=== PATIENT | female | born 1955 | race American Indian/Alaskan Native ===

== ENCOUNTER 2017-07-18 17:23 | Observation (INO) | payer BC, OTHER ==
[~2017-07-18] VITALS: Ht 162.6 cm; Wt 117.3 kg
--- OUTSIDE RECORDS SUMMARY | ~2017-07-18 | XMS | Encounter Summary ---
Demographics + + + | Address | [address] | | | [place] [address] | + + + | Home Phone | | + + + | Preferred Language | Unknown | + + + | Marital Status | | + + + | Bahai Affiliation | NON | + + + | Race | or | + + + | Ethnic Group | Not or | + + + Author + + + | Author | [facility] [employer] [facility] | + + + | Organization | [facility] | + + + | Address | Unknown | + + + | Phone | Unavailable | + + + Support + + + + + | Name | Relationship | Address | Phone | + + + + + | EVERETT WHITLEY | ECON | [address] | | | | | #[id number], [place] | | | | | [address] | | + + + + + Care Team Providers + +------+ + | Care Hoop Bender Tank Name | Role | Phone | + +------+ + | Morgan Conner MD | PCP | Unavailable | + +------+ + Encounter Details +--------+ + + + + | Date | Type | Department | Care Team | Description | +--------+ + + + + | 06/15/ | MyChart | Digestive Health | Pj Ochoa MD | RE: Medication - | | 2018 | Encounter | Center at [facility] 6th | [address] | [place] | | | | Floor [address] | [place], [place] | | | | | [place] Mailcode: CH6D | [address] | | | | | [facility] | [phone] | | | | | and Healing, 6th | | | | | | Floor [place], [place] | | | | | | [address] | | | | | | [phone] | | | +--------+ + + + + Social History + +-------+ +--------+------+ | Tobacco Use | Types | Packs/Day | Years | Date | | | | | Used | | + +-------+ +--------+------+ | Never Smoker | | | | | + +-------+ +--------+------+ + +---+---+---+ | Smokeless Tobacco: | | | | | Never Used | | | | + +---+---+---+ + + +---------+ + | Alcohol Use | Drinks/We | oz/Week | Comments | | | ek | | | + + +---------+ + | No | | | | + + +---------+ + + + + | Sex Assigned at | Date Recorded | | | | + + + | Not on file | | + + + as of this encounter Plan of Treatment Not on fileas of this encounter Visit Diagnoses Not on filein this encounter"
--- OUTSIDE RECORDS SUMMARY | ~2017-07-18 | XMS | Encounter Summary ---
Demographics + + + | Address | [address] | | | [place] [address] | + + + | Home Phone | | + + + | Preferred Language | Unknown | + + + | Marital Status | | + + + | Jew Affiliation | NON | + + + | Race | or | + + + | Ethnic Group | Not or | + + + Author + + + | Author | [facility] | + + + | Organization | [facility] | + + + | Address | Unknown | + + + | Phone | Unavailable | + + + Support + + + + + | Name | Relationship | Address | Phone | + + + + + | EVERETT WHITLEY | ECON | [address] | | | | | #[id number], [place] | | | | | [address] | | + + + + + Care Team Providers + +------+ + | Care Senior Sustainability Advisor Name | Role | Phone | + +------+ + | Morgan Conner MD | PCP | Unavailable | + +------+ + Encounter Details +--------+ + + + + | Date | Type | Department | Care Team | Description | +--------+ + + + + | 05/26/ | Document-Sc | Digestive Health | Pj Ochoa MD | | | 2018 | ann | [facility] 6th | [address] | | | | | Floor [address] | [place], [place] | | | | | Ave Mailcode: CH6D | [address] | | | | | [facility] | [phone] | | | | | and Linda, 6th | | | | | | Floor [place], [place] | | | | | | [address] | | | | | | [phone] | | | +--------+ + + + [...] Treatment Not on fileas of this encounter Results US HEPATOCELLULAR CARCINOMA SCREENING (05/26/2017)in this encounter Visit Diagnoses Not on filein this encounter"
--- OUTSIDE RECORDS SUMMARY | ~2017-07-18 | XMS | Encounter Summary ---
Demographics + + + | Address | [address] | | | [place] [address] | + + + | Home Phone | | + + + | Preferred Language | Unknown | + + + | Marital Status | | + + + | Scientology Affiliation | NON | + + + | Race | or | + + + | Ethnic Group | Not or | + + + Author + + + | Author | [facility] | + + + | Organization | [facility] | + + + | Address | Unknown | + + + | Phone | Unavailable | + + + Support + + + + + | Name | Relationship | Address | Phone | + + + + + | EVERETT WHITLEY | ECON | [address] | | | | | #[id number], [place] | | | | | [address] | | + + + + + Care Team Providers + +------+ + | Care Bike Assembler Name | Role | Phone | + +------+ + | Morgan Conner MD | PCP | Unavailable | + +------+ + Reason for Visit + + + | Reason | Comments | + + + | Medical Records | | | Review | | + + + Encounter Details +--------+ + + + + | Date | Type | Department | Care Team | Description | +--------+ + + + + | 05/30/ | Abstract | Digestive Health | Pj Ochoa MD | Medical Records | | 2018 | | Center [facility] 6th | [address] | Review | | | | Floor [address] | [place], [place] | | | | | Ave Mailcode: [facility] | [address] | | | | | [facility] | [phone] | | | | | and Linda, 6th | | | | | | Floor [place], [place] | | | | | | [address] | | | | | | [phone] | | | +--------+ + + + [...]
--- OUTSIDE RECORDS SUMMARY | ~2017-07-18 | XMS | Encounter Summary ---
Demographics + + + | Address | [address] | | | [place] [address] | + + + | Home Phone | | + + + | Preferred Language | Unknown | + + + | Marital Status | | + + + | Faith Affiliation | NON | + + + | Race | or | + + + | Ethnic Group | Not or | + + + Author + + + | Author | [facility] [employer] [facility] | + + + | Organization | [facility] | + + + | Address | Unknown | + + + | Phone | Unavailable | + + + Support + + + + + | Name | Relationship | Address | Phone | + + + + + | EVERETT WHITLEY | ECON | [address] | | | | | #[id number], [place] | | | | | [address] | | + + + + + Care Team Providers + +------+ + | Care Retail Pharmacy Merchandiser Name | Role | Phone | + +------+ + | Morgan Conner MD | PCP | Unavailable | + +------+ + Reason for Visit + + + | Reason | Comments | + + + | Blood Test Results | | + + + Encounter Details +--------+ + + + + | Date | Type | Department | Care Team | Description | +--------+ + + + + | 06/02/ | Abstract | Digestive Health | Pj Ochoa MD | Blood Test Results | | 2018 | | [facility]th | [address] | | | | | Floor [address] | [place], [place] | | | | | Ave Mailcode: [facility] | [address] | | | | | [facility] | [phone] | | | | | and Linda [address]th | | | | | | Floor [place], [place] | | | | | | [address] | | | | | | [phone] | | | +--------+ + + + [...]
--- OUTSIDE RECORDS SUMMARY | ~2017-07-18 | XMS | Encounter Summary ---
Demographics + + + | Address | [address] | | | [place] [address] | + + + | Home Phone | | + + + | Preferred Language | Unknown | + + + | Marital Status | | + + + | Amish Affiliation | NON | + + + | Race | or | + + + | Ethnic Group | Not or | + + + Author + + + | Author | [facility] | + + + | Organization | [facility] | + + + | Address | Unknown | + + + | Phone | Unavailable | + + + Support + + + + + | Name | Relationship | Address | Phone | + + + + + | EVERETT WHITLEY | ECON | [address] | | | | | #[id number], [place] | | | | | [address] | | + + + + + Care Team Providers + +------+ + | Care Rn Or Lvn Name | Role | Phone | + +------+ + | Morgan Conner MD | PCP | Unavailable | + +------+ + Encounter Details +--------+ + + + + | Date | Type | Department | Care Team | Description | +--------+ + + + + | 06/15/ | Documentati | Digestive Health | Pj Ochoa MD | | | 2018 | on | [place] at [facility] 6th | [address] | | | | | Floor [address] | [place], [place] | | | | | [place] Mailcode: CH6D | [address] | | | | | [facility] | [phone] | | | | | and [address]th [address] | | | | | | floor [place], [place] | | | | | | [address] | | | | | | [phone] | | | +--------+ + + + [...]
--- OUTSIDE RECORDS SUMMARY | ~2017-07-18 | XMS | Encounter Summary ---
Demographics + + + | Address | [address] | | | [place] [address] | + + + | Home Phone | | + + + | Preferred Language | Unknown | + + + | Marital Status | | + + + | Congregational Affiliation | NON | + + + | Race | or | + + + | Ethnic Group | Not or | + + + Author + + + | Author | [facility] | + + + | Organization | [facility] | + + + | Address | Unknown | + + + | Phone | Unavailable | + + + Support + + + + + | Name | Relationship | Address | Phone | + + + + + | EVERETT WHITLEY | ECON | [address] | | | | | #[id number], [place] | | | | | [address] | | + + + + + Care Team Providers + +------+ + | Care Tin Flopper Name | Role | Phone | + +------+ + | Morgan Conner MD | PCP | Unavailable | + +------+ + Reason for Visit +--------+ + | Reason | Comments | +--------+ + | Other | | +--------+ + Encounter Details +--------+ + + + + | Date | Type | Department | Care Team | Description | +--------+ + + + + | 05/10/ | Telephone | Digestive Health | Pj Ochoa MD | Other | | 2018 | | Center at [facility] 6th | [address] | | | | | Floor [address] | [place], [place] | | | | | Ave Mailcode: [facility] | [address] | | | | | [facility] | [phone] | | | | | and [facility], 6th | | | | | | Floor [place], [place] | | | | | | [address] | | | | | | [phone] | | | +--------+ + + + [...] of this encounter Plan of Treatment + +--------+ + + | Name | Priori | Associated Diagnoses | Order Schedule | | | ty | | | + +--------+ + + | US ABDOMEN COMPLETE | Routin | Autoimmune | Expected: | | | e | hepatitis (HCC) | 05/10/2017, Expires: | | | | Other cirrhosis of | 06/10/2018 | | | | liver (HCC) | | | | | Secondary esophageal | | | | | varices without | | | | | bleeding (HCC) | | + +--------+ + + | CBC, WITH DIFFERENTIAL | Routin | Autoimmune | Expected: 05/10/2017 | | | e | hepatitis (HCC) | (Approximate), | | | | Other cirrhosis of | Expires: 06/10/2018 | | | | liver (HCC) | | | | | Secondary esophageal | | | | | varices without | | | | | bleeding (HCC) | | + +--------+ + + | COMPLETE METABOLIC SET | Routin | Autoimmune | Expected: 05/10/2017 | | (NA,K,CL,CO2,BUN,CREAT,GLUC,CA, | e | hepatitis (HCC) | (Approximate), | | T,ALT,BILI TOTAL,ALK | | Other cirrhosis of | Expires: 06/10/2018 | | PHOS,ALB,PROT TOTAL) | | liver (HCC) | | | | | Secondary esophageal | | | | | varices without | | | | | bleeding (HCC) | | + +--------+ + + | INR | Routin | Autoimmune | Expected: 05/10/2017 | | | e | hepatitis (HCC) | (Approximate), | | | | Other cirrhosis of | Expires: 06/10/2018 | | | | liver (HCC) | | | | | Secondary esophageal | | | | | varices without | | | | | bleeding (HCC) | | + +--------+ + + as of this encounter Results INR (04/12/2017) + +-------+ + | Component | Value | Ref Range | + +-------+ + | INR | 1.2 | INR | + +-------+ + + + + | Specimen | Performing Laboratory | + + + | Blood | NON [facility] | + + + COMPLETE METABOLIC SET (NA,K,CL,CO2,BUN,CREAT,GLUC,CA,AST,ALT,BILI TOTAL,ALK PHOS,ALB,PROT TOTAL) (04/12/2017) + +---------+ + | Component | Value | Ref Range | + +---------+ + | GLUCOSE, PLASMA | 210 (H) | mg/dL | | (LAB) | | | + +---------+ + | BUN, PLASMA (LAB) | 11 | mg/dL | + +---------+ + | CREATININE PLASMA | 0.86 | mg/dL | | (LAB) | | | + +---------+ + | ALBUMIN, PLASMA | 2.7 (L) | g/dL | | (LAB) | | | + +---------+ + | BILIRUBIN TOTAL | 1.2 (H) | Transcutaneous | | | | Bilirubinometer | + +---------+ + | ALK PHOS | 93 | U/L | + +---------+ + | AST(SGOT) | 36 (H) | U/L | + +---------+ + | SODIUM, PLASMA (LAB) | 141 | mmol/L | + +---------+ + | POTASSIUM, PLASMA | 3.3 (L) | mmol/L | | (LAB) | | | + +---------+ + | ALT (SGPT) | 19 | U/L | + +---------+ + + + + | Specimen | Performing Laboratory | + + + | Blood | NON [facility] | + + + CBC ONLY (04/12/2017) + + + + | Component | Value | Ref Range | + + + + | WHITE CELL COUNT | 3.60 (L) | K/cu mm | + + + + | RED CELL COUNT | 4.08 | M/cu mm | + + + + | HEMOGLOBIN | 13.1 | g/dL | + + + + | HEMATOCRIT | 38.6 | % | + + + + | PLATELET COUNT | 72.0 (L) | K/cu mm | + + + + + + + | Specimen | Performing Laboratory | + + + | Blood | NON [facility] | + + + in this encounter Visit Diagnoses + + | Diagnosis | + + | Autoimmune hepatitis (HCC) - Primary | + + | Autoimmune hepatitis | + + | Other cirrhosis of liver (HCC) | + + | Secondary esophageal varices without bleeding (HCC) | + + | Esophageal varices without mention of bleeding in diseases classified elsewhere | + +"
--- OUTSIDE RECORDS SUMMARY | ~2017-07-18 | XMS | Encounter Summary ---
Demographics + + + | Address | [address] | | | [place] [address] | + + + | Home Phone | | + + + | Preferred Language | Unknown | + + + | Marital Status | | + + + | Restoration Affiliation | NON | + + + | Race | or | + + + | Ethnic Group | Not or | + + + Author + + + | Author | [facility] | + + + | Organization | [facility] | + + + | Address | Unknown | + + + | Phone | Unavailable | + + + Support + + + + + | Name | Relationship | Address | Phone | + + + + + | EVERETT WHITLEY | ECON | [address] | | | | | #[id number], [place] | | | | | [address] | | + + + + + Care Team Providers + +------+ + | Care Climatologist Name | Role | Phone | + +------+ + | Morgan Conner MD | PCP | Unavailable | + +------+ + Encounter Details +--------+ + + + + | Date | Type | Department | Care Team | Description | +--------+ + + + + | 07/04/ | MyChart | Digestive Health | Pj Ochoa MD | RE: ultrasound | | 2017 | Encounter | [facility] 6th | [address] | results | | | | Floor [address] | [place], [place] | | | | | Ave Mailcode: CH6D | [address] | | | | | [facility] | [phone] | | | | | and Healing, 6th | | | | | | Floor [place], [place] | | | | | | [address] | | | | | | [phone] | | | +--------+ + + + [...]
--- OUTSIDE RECORDS SUMMARY | ~2017-07-18 | XMS | Encounter Summary ---
Demographics + + + | Address | [address] | | | [place] [address] | + + + | Home Phone | | + + + | Preferred Language | Unknown | + + + | Marital Status | | + + + | Latter Day Affiliation | NON | + + + | Race | or | + + + | Ethnic Group | Not or | + + + Author + + + | Author | [facility] | + + + | Organization | [facility] | + + + | Address | Unknown | + + + | Phone | Unavailable | + + + Support + + + + + | Name | Relationship | Address | Phone | + + + + + | EVERETT WHITLEY | ECON | [address] | | | | | #[id number], [place] | | | | | [address] | | + + + + + Care Team Providers + +------+ + | Care Tack Picker Name | Role | Phone | + +------+ + | Morgan Conner MD | PCP | Unavailable | + +------+ + Reason for Referral PROC - Dept/Practice Procedure (Routine) + +--------+ + + + + | Status | Reason | Specialty | Diagnoses / | Referred By | Referred To | | | | | Procedures | Contact | Contact | + +--------+ + + + + | Referred | | Gastroenterol | Diagnoses | Don, | Gas Gi Proc | | | | ogy | Secondary | MD Pj | [address] | | | | | esophageal | [address] | [address] | | | | | varices | Ave | Mailcode: | | | | | without | [place], [place] | [address] Center | | | | | bleeding | [address] | for Health | | | | | (HCC) Other | Phone: | and Healing, | | | | | cirrhosis | [phone] | 6th floor | | | | | of liver | Fax: | [place], [place] | | | | | (HCC) | [phone] | [address] | | | | | Procedures | | Phone: | | | | | CONSULT TO | | [phone] | | | | | GI PROCEDURE | | Fax: | | | | | UNIT: EGD | | [phone] | + +--------+ + + + + Encounter Details +--------+ + + + + | Date | Type | Department | Care Team | Description | +--------+ + + + + | 06/14/ | Dog Pound Attendant | Digestive Health | Pj Ochoa MD | Secondary esophageal | | 2018 | | Center at [facility] 6th | [address] | varices without | | | | Floor [address] | [place], [place] | bleeding (HCC) | | | | Ave Mailcode: CH6D | [address] | (Primary Dx); Other | | | | [facility] | [phone] | cirrhosis of liver | | | | and Healing, 6th | | (HCC) | | | | floor [place], [place] | | | | | | [address] | | | | | | [phone] | | | +--------+ + + + [...] on fileas of this encounter Visit Diagnoses + + | Diagnosis | + + | Secondary esophageal varices without bleeding (HCC) - Primary | + + | Esophageal varices without mention of bleeding in diseases classified elsewhere | + + | Other cirrhosis of liver (HCC) | + +"
--- OUTSIDE RECORDS SUMMARY | ~2017-07-18 | XMS | Clinical Summary ---
Demographics + + + | Address | [address] | | | [place] [address] | + + + | Home Phone | | + + + | Preferred Language | Unknown | + + + | Marital Status | | + + + | Mosque Affiliation | NON | + + + | Race | or | + + + | Ethnic Group | Not or | + + + Author + + + | Author | [facility] | + + + | Organization | [facility] | + + + | Address | Unknown | + + + | Phone | Unavailable | + + + Support + + + + + | Name | Relationship | Address | Phone | + + + + + | EVERETT WHITLEY | ECON | [address] | | | | | #[id number], [place] | | | | | [address] | | + + + + + Care Team Providers + +------+ + | Care Petroleum Blending Plant Operator Name | Role | Phone | + +------+ + | Morgan Conner MD | PP | Unavailable | + +------+ + Source Comments FABIANO is fully live on both EpicCare Ambulatory and EpicCare InPatient.[facility] Allergies + + + + + + | Active Allergy | Reactions | Severity | Noted | Comments | | | | | Date | | + + + + + + | Hydrocodone | Rash | | 06/21/19 | | | | | | 14 | | + + + + + + | Oxycodone | Pruritus | | 06/21/19 | insomnia | | | | | 14 | | + + + + + + Current Medications + + +--------+---------+------+------+-------+ | Prescription | Sig. | Disp. | Refills | Star | End | Statu | | | | | | t | Date | s | | | | | | Date | | | + + +--------+---------+------+------+-------+ | Omeprazole | take 1 capsule (20 | | | | | Activ | | (PRILOSEC) 20 mg | mg) by oral route | | | | | e | | Oral Capsule, | once daily before a | | | | | | | Delayed | meal | | | | | | | Release(E.C.) | | | | | | | + + +--------+---------+------+------+-------+ | Levothyroxine | take 1 tablet (112 | | | | | Activ | | Sodium 112 mcg Oral | mcg) by oral route | | | | | e | | Tablet | once daily | | | | | | + + +--------+---------+------+------+-------+ | Furosemide (LASIX) | 80mg once daily | | | | | Activ | | 40 mg Oral Tablet | | | | | | e | + + +--------+---------+------+------+-------+ | buPROPion 50 mg | Take 100 mg by mouth | | | | | Activ | | Oral Tablet | once daily. | | | | | e | + + +--------+---------+------+------+-------+ | tolterodine 2 mg | Take 4 mg by mouth | | | | | Activ | | Oral tablet | once daily. | | | | | e | + + +--------+---------+------+------+-------+ | propranolol 40 mg | Take 20 mg by mouth | | | | | Activ | | oral tablet | two times daily. | | | | | e | + + +--------+---------+------+------+-------+ | spironolactone 50 | Take 2 tablets by | 60 | 5 | 09/29 | | Activ | | mg oral tablet | mouth once daily. | tablet | | 11/17 | | e | | | Please keep patient | | | 15 | | | | | on same name and | | | | | | | | brand of medication. | | | | | | + + +--------+---------+------+------+-------+ Active Problems + + + | Problem | Noted Date | + + + | Esophageal varices without bleeding (HCC) | 10/02/2015 | + + + | Varices, esophageal (HCC) | 09/29/2014 | + + + | Ascites | 09/29/2014 | + + + | Cervical spondylosis without myelopathy | 03/06/2012 | + + + | Acquired spondylolisthesis | 03/06/2012 | + + + | Absent sense of smell | 06/01/2011 | + + + | Dysphonia | 06/01/2011 | + + + | Autoimmune hepatitis (HCC) | 09/18/2009 | + + + | Hepatic cirrhosis (HCC) | 09/18/2009 | + + + + + | Overview: ICD10 | + + + + + | Autoimmune disease NEC | 11/10/2006 | + + + Encounters +--------+ + + + + | Date | Type | Specialty | Care Team | Description | +--------+ + + + + | 07/04/ | MyChart | | Pj Scott MD | RE: ultrasound | | 2018 | Encounter | | | results | +--------+ + + + + | 06/15/ | Documentati | | Pj Scott MD | | | 2018 | on | | | | +--------+ + + + + | 06/15/ | MyChart | | Pj Scott MD | RE: Medication - | | 2017 | Encounter | | | Imuran | +--------+ + + + + | 06/14/ | Hospital | | Pj Scott MD | | | 2017 | Encounter | | | | +--------+ + + + + | 06/14/ | Fashion Supervisor | | Pj Scott MD | Secondary esophageal | | 2017 | | | | varices without | | | | | | bleeding (HCC) | | | | | | (Primary Dx); Other | | | | | | cirrhosis of liver | | | | | | (HCC) | +--------+ + + + + | 06/02/ | Abstract | | Pj Scott MD | Blood Test Results | | 2017 | | | | | +--------+ + + + + | 05/30/ | Abstract | | Pj Scott MD | Medical Records | | 2017 | | | | Review | +--------+ + + + + | 05/26/ | Document-Sc | | Pj Scott MD | | | 2017 | anned | | | | +--------+ + + + + | 05/10/ | Telephone | | Pj Scott MD | Other | | 2017 | | | | | +--------+ + + + + from Last 3 Months Immunizations + + + + | Name | Dates Previously Given | Next Due | + + + + | Influenza Injectable | 01/21/2014 | | | Quadrivalent (IIV4 | | | | P-Free) | | | + + + + | Influenza, seasonal, | 03/01/2017, 02/03/2016, 02/03/2016, | | | intradermal pfree | 02/17/2015, 01/21/2014, 01/22/2013, | | | | 12/31/2010, 02/10/2010, 01/28/2009 | | + + + + | Influenza, split | 01/17/2012, 02/10/2010 | | + + + + | Pneumococcal 23 | 12/20/2005 | | + + + + | Ppd (tuberculin | 11/18/2015, 05/25/2010 | | | Purified Protein | | | | Derivative) | | | + + + + Social History + [...] + + + | Blood Pressure | 114/68 | 06/14/2017 2:30 PM PST | + + + + | Pulse | 68 | 06/14/2017 1:45 PM PST | + + + + | Temperature | 36.8 C (98.2 F) | 06/14/2017 1:18 PM PST | + + + + | Respiratory Rate | 15 | 06/14/2017 2:30 PM PST | + + + + | Oxygen Saturation | 98% | 06/14/2017 2:30 PM PST | + + + + | Inhaled Oxygen | - | - | | Concentration | | | + + + + | Weight | 113.4 kg (250 lb) | 10/02/2015 9:11 AM PDT | + + + + | Height | 165.1 cm (5' 5") | 09/29/2014 11:31 AM PDT | + + + + | Body Mass Index | 41.6 | 10/02/2015 9:11 AM PDT | + + + + Plan of Treatment + + + + + | Health Maintenance | Due Date | Last Done | Comments | + + + + + | LIVER ULTRASOUND | | 04/14/2010 | | | | 1 | | | + + + + + | INFLUENZA VACCINE | Completed | 03/01/2017, 02/05/2016, | | | (FLU SHOT) | | 02/03/2016, Additional history | | | | | exists | | + + + + + Procedures + +--------+ + + + | Procedure Name | Priori | Date/Time | Associated Diagnosis | Comments | | | ty | | | | + +--------+ + + + | EGD | Routin | 06/14/2017 | Autoimmune | Results for this | | | e | 1:32 PM | hepatitis (HCC) | procedure are in the | | | | PST | Other cirrhosis of | results section. | | | | | liver (HCC) | | | | | | Secondary esophageal | | | | | | varices without | | | | | | bleeding (HCC) | | + +--------+ + + + from Last 3 Months Results EGD (06/14/2017 1:32 PM) + + + | Specimen | Performing Laboratory | + + + | | [facility] | + + + + + | Narrative | + + | Procedure Date: 06/14/2017 Patient Name: Svitlana Whitley Order #: | | [id number] Date of : 1955 CSN: [id number] Admit Type: Ambulatory Room: [facility] | | 2 Procedure: Upper GI endoscopy Indications: | | Follow-up of esophageal varices Providers: PJ SCOTT MD (Doctor), | | STEF ROSSI RN (Nurse), LUCAS | | ISSA Ld Teacher (Ld Teacher) Referring MD: PJ SCOTT MD Requesting | | Provider: Medicines: Midazolam 4 mg IV, Fentanyl 100 micrograms | | IV Complications: No immediate complications. | | Procedure: Pre-Anesthesia Assessment: | | - ASA Grade Assessment: II - A patient with | | mild systemic disease. | | - After reviewing the risks and benefits, the | | patient was deemed in satisfactory condition | | to undergo the procedure. | | - The anesthesia plan was to use moderate | | sedation/analgesia (conscious sedation). | | - Immediately prior to administration of | | medications, the patient was re-assessed for | | adequacy to receive sedatives. | | - Sedation was administered by an endoscopy | | nurse. The sedation level attained was | | moderate. - The heart rate, respiratory rate, | | oxygen saturations, blood pressure, adequacy | | of pulmonary ventilation, and response to | | care were monitored throughout the procedure. | | - The physical status of the patient was re-assessed | | after the procedure. | | Prior to the procedure, a History and Physical | | with airway assessment was performed (see | | patient record), and patient medications and | | allergies were reviewed. The risks and | | benefits of the procedure and the sedation | | options and risks were discussed. All questions were | | answered and informed consent was obtained. | | After reviewing the risks and benefits, the | | patient was deemed in satisfactory condition | | to undergo the procedure. Immediately prior | | to administration of medications, the patient | | was re-assessed for adequacy to receive | | sedatives. The heart rate, respiratory rate, oxygen | | saturations, blood pressure, adequacy of | | pulmonary ventilation, and response to care | | were monitored throughout the procedure. The | | physical status of the patient was | | re-assessed after the procedure. The Olympus | | GIF-HQ190 Gastroscope #[id number] was introduced | | through the mouth, and advanced to the second | | part of duodenum. The upper GI endoscopy was | | accomplished without difficulty. The patient | | tolerated the procedure well. Estimated | | Blood Loss: Estimated blood loss: none. Findings: Grade I varices | | were found in the lower third of the esophagus. Estimated blood loss: none. | | Estimated blood loss was minimal. The stomach noted mild portal hypertensive | | gastropathy. The examined duodenum was normal. Moderate Sedation: | | Moderate (conscious) sedation was administered by the endoscopy nurse and | | supervised by the endoscopist. The following parameters were monitored: | | oxygen saturation, heart rate, blood pressure, and response to care. Total | | physician intraservice time was 10 minutes. Impression: - Grade I | | esophageal varices. - Mild portal hypertensive | | gastropathy of the stomach. - Normal examined | | duodenum. - No specimens collected. | | Recommendation: - Repeat upper endoscopy in 1 year for surveillance. PJ | | MD TYLER 06/14/2017 1:54:46 PM This report has been signed electronically. Number of | | Addenda: 0 Note Initiated On: 06/14/2017 1:32 PM | + + HEPATOCELLULAR CARCINOMA SCREENING (05/26/2017)from Last 3 Months
--- OUTSIDE RECORDS SUMMARY | ~2017-07-18 | XMS | Encounter Summary ---
Demographics + + + | Address | [address] | | | [place] [address] | + + + | Home Phone | | + + + | Preferred Language | Unknown | + + + | Marital Status | | + + + | Cheondoism Affiliation | NON | + + + | Race | or | + + + | Ethnic Group | Not or | + + + Author + + + | Author | [facility] | + + + | Organization | [facility] | + + + | Address | Unknown | + + + | Phone | Unavailable | + + + Support + + + + + | Name | Relationship | Address | Phone | + + + + + | EVERETT WHITLEY | ECON | [address] | | | | | #[id number], [place] | | | | | [address] | | + + + + + Care Team Providers + +------+ + | Care Dry Dip Worker Name | Role | Phone | + +------+ + | Morgan Conner MD | PCP | Unavailable | + +------+ + Reason for Visit AUTH/CERT +--------+--------+ + + + + | Status [...] + + | 06/14/ | Hospital | [facility] GI PROCEDURE | Pj Scott MD | | | 2018 | Encounter | [address] | [address] | | | | | AVE [facility] | [facility] [place] | | | | | FOR HE[facility] AND | [address] | | | | | [facility], | [phone] | | | | | [place] [address] | | | | | | [phone] | | | +--------+ + + + [...] | Height | - | - | + + + + | Body Mass Index | - | - | + + + + in this encounter Discharge Instructions Stef Morales RN - 06/14/2017Home Care Instructions after EGD (Upper Endoscopy) You may resume your normal diet and medications unless told otherwise. Medications The medications you received for your procedure can cause you to be forgetful and drowsy an d will take the remainder of the day to wear off. DO NOT drink alcohol, drive, operate heavy machinery, sign legal documents, or make major d ecisions until tomorrow. Common After Effects Mild abdominal pain, bloating, and gas. Sore throat. You may treat it with throat lozenges and/or gargle with warm salt water. You may bruise at your IV site. If you have pain, redness, or swelling at your IV site a pply a warm compress. Complications Call your GI doctor if you have: Abnormal pain or any new unexplained symptoms. Shortness of breath, chest or neck pain. Vomiting blood or rectal bleeding. Fever above 101.5 Redness, pain, or swelling at your IV site that is not relieved with warm compress. For any questions related to your procedure, call Monday- Monday 8:00- 4:30 Call the endoscopy department toll free ext. [phone] or After business hours or on weekends and holiday Hospital Manager Services toll free [phone] ext. [phone] and have the GI doctor educational psychologist paged. The provider who performed your procedure is: Dr. Scott Results of your EGD: small varices noted. Follow up Appointments with: Repeat EGD in one year. Your primary care provider or referring provider will receive copies of the procedure repor t and all the pathology reports with recommendations for treatment if needed. If Noted above that biopsies were taken or polyps removed we will receive the results in ap proximately 1 week. If you have not heard from us after 2 weeks please call for your results . in this encounter Medications at Time of Discharge + + +--------+---------+ + + | Medication | Sig. | Disp. | Refills | Start | End Date | | | | | | Date | | + + +--------+---------+ + + | buPROPion 50 mg | Take 100 mg by mouth | | | | | | Oral Tablet | once daily. | | | | | + + +--------+---------+ + + | Furosemide (LASIX) | 80mg once daily | | | | | | 40 mg Oral Tablet | | | | | | + + +--------+---------+ + + | Levothyroxine | take 1 tablet (112 | | | | | | Sodium 112 mcg Oral | mcg) by oral route | | | | | | Tablet | once daily | | | | | + + +--------+---------+ + + | Omeprazole | take 1 capsule (20 | | | | | | (PRILOSEC) 20 mg | mg) by oral route | | | | | | Oral Capsule, | once daily before a | | | | | | Delayed | meal | | | | | | Release(E.C.) | | | | | | + + +--------+---------+ + + | propranolol 40 mg | Take 20 mg by mouth | | | | | | oral tablet | two times daily. | | | | | + + +--------+---------+ + + | spironolactone 50 | Take 2 tablets by | 60 | 5 | 10/16/19 | | | mg oral tablet | mouth once daily. | tablet | | 15 | | | | Please keep patient | | | | | | | on same name and | | | | | | | brand of medication. | | | | | + + +--------+---------+ + + | tolterodine 2 mg | Take 4 mg by mouth | | | | | | Oral tablet | once daily. | | | | | + + +--------+---------+ + + as of this encounter Progress Notes Pj Scott MD - 06/14/2017 1:35 PM PSTFormatting of this note may be different from the original. PRE PROCEDURE NOTE: MR# [id number] Subjective: Svitlana Angi is a 62 y.o. female who presents today for EGD. Patient History Reviewed Medications reviewed Allergies: Allergies as of 05/18/2017 - Fully Reviewed 08/05/2016 Allergen Reaction Noted Hydrocodone Rash 06/21/2013 Oxycodone Pruritus 06/21/2013 Pt NPO for 5 hrs. ROS: All others negative. Objective: Vital Signs: BP 126/69 | Pulse 60 | Temp 36.8 C (98.2 F) | RR 16 | SpO2 98% Neuro: Patient oriented X3. Mental status clear and intact Mallampati Score: I Neck negative Respiratory: Lungs clear to auscultation bilaterally with good air exchange Cardiovascular: PMI normal. No lifts, heaves, or thrills. RRR. No murmurs, rubs or gallops Abdomen: soft, normal active bowel sounds, nontender, no masses, no organomegaly Impression Patient deemed appropriate candidate for planned procedure and sedation. Reviewed recent l abs and imaging and they are stable ASA:2 Plan Proceed with EGD Cont low dose Imuran [id number] ABD ultrasound and CMP, CBC, INR We will repeat EGD in 1 yr PARQ held and all questions addressed. Consent obtained. See procedure note 06/14/2017 in this encounter Plan of Treatment Not on fileas of this encounter Procedures + +--------+ + [...] | | + +--------+ + + + in this encounter Results EGD (06/14/2017 1:32 PM) + + + | Specimen | Performing Laboratory | + + + | | [facility] | + + + + + | Narrative | + + | Procedure Date: 06/14/2017 Patient Name: Svitlana Parrishyeimyconsuelo Order #: | | [id number] Date of : 1955 CSN: [id number] Admit Type: Ambulatory Room: [facility] | | 2 Procedure: Upper GI endoscopy Indications: | | Follow-up of esophageal varices Providers: PJ SCOTT MD (Doctor), | | STEF MORALES RN (Nurse), LUCAS | | ISSA Insurance Administrative Assistant (Insurance Administrative Assistant) Referring MD: PJ SCOTT MD Requesting | [...] procedure. The Olympus | | GIF-HQ190 Gastroscope #[id number] was introduced | | through the mouth, [...] On: 06/14/2017 1:32 PM | + + in this encounter Visit Diagnoses + + | Diagnosis | + + | Autoimmune hepatitis (HCC) - Primary | + + | Autoimmune hepatitis | + + | Other cirrhosis of liver (HCC) | + + | Secondary esophageal varices without bleeding (HCC) | + + | Esophageal varices without mention of bleeding in diseases classified elsewhere | + + Admitting Diagnoses + + | Diagnosis | + + | Autoimmune Hepatitis | + + | Other Cirrhosis of liver | + + Administered Medications + +--------+ +--------+------+------+ | Medication Order | MAR | Action | Dose | Rate | Site | | | Action | Date | | | | + +--------+ +--------+------+------+ | fentaNYL (SUBLIMAZE) injection | Given | | 50 mcg | | | | intravenous, INTRAPROCEDURE PRN, | | 8 13:43 | | | | | Starting 06/14/17 at 1342, | | PST | | | | | Until Discontinued | | | | | | + +--------+ +--------+------+------+ +---+---+ | | | +---+---+ + +-------+ +--------+---+---+ | fentaNYL (SUBLIMAZE) injection | Given | | 25 mcg | | | | intravenous, INTRAPROCEDURE PRN, | | 8 13:45 | | | | | Starting Mon06/14/17 at 1345, | | PST | | | | | Until Discontinued | | | | | | + +-------+ +--------+---+---+ +---+---+ | | | +---+---+ + +-------+ +--------+---+---+ | fentaNYL (SUBLIMAZE) injection | Given | | 25 mcg | | | | intravenous, INTRAPROCEDURE PRN, | | 8 13:47 | | | | | Starting Mon06/14/17 at 1347, | | PST | | | | | Until Discontinued | | | | | | + +-------+ +--------+---+---+ + +---+ | | | + +---+ | lidocaine viscous (XYLOCAINE | | | VISCOUS) 2 % mucosal solution 15 | | | mL 15 mL, oral, INTRAPROCEDURE | | | PRN, Starting 06/14/17 at | | | 1256, Until Mon06/14/17 at 2049, | | | sore oropharynx | | + +---+ | | | + +---+ + +-------+ +------+---+---+ | lidocaine viscous (XYLOCAINE | Given | | 6 mL | | | | VISCOUS) 2 % mucosal solution | | 8 13:40 | | | | | Mouth/Throat, INTRAPROCEDURE PRN, | | PST | | | | | Starting Mon06/14/17 at 1340, | | | | | | | Until Discontinued | | | | | | + +-------+ +------+---+---+ +---+---+ | | | +---+---+ + +-------+ +------+---+---+ | midazolam (PF) (VERSED) | Given | | 2 mg | | | | injection INTRAPROCEDURE PRN, | | 8 13:43 | | | | | Starting 06/14/17 at 1343, | | PST | | | | | Until Discontinued | | | | | | + +-------+ +------+---+---+ +---+---+ | | | +---+---+ + +-------+ +------+---+---+ | midazolam (PF) (VERSED) | Given | | 1 mg | | | | injection INTRAPROCEDURE PRN, | | 8 13:45 | | | | | Starting 06/14/17 at 1345, | | PST | | | | | Until Discontinued | | | | | | + +-------+ +------+---+---+ +---+---+ | | | +---+---+ + +-------+ +------+---+---+ | midazolam (PF) (VERSED) | Given | | 1 mg | | | | injection INTRAPROCEDURE PRN, | | 8 13:47 | | | | | Starting 06/14/17 at 1347, | | PST | | | | | Until Discontinued | | | | | | + +-------+ +------+---+---+ + +---+ | | | + +---+ | simethicone (MYLICON) | | | suspension 3.333 mg 3.333 mg | | | (rounded from 3.3333 mg = 1 | | | drop), oral, INTRAPROCEDURE PRN, | | | Starting Mon06/14/17 at 1256, | | | Until Mon06/14/17 at 2048, gas | | | bubbles in endoscope | | + +---+ | | | + +---+ + +---------+ + + +---+ | sodium chloride 0.9% IV | New Bag | | 50 mL/hr | 50 mL/hr | | | infusion 50 mL/hr, intravenous, | | 8 13:17 | | | | | CONTINUOUS, Starting Mon06/14/17 | | PST | | | | | at 1300, Until Mon06/14/17 at | | | | | | | 2048 | | | | | | + +---------+ + + +---+ +---+---+ | | | +---+---+ in this encounter"
[~2017-07-18 17:23] MED LIST: BICARSIM80 MG PO; BUPROPION XL300 MG PO; DRISDOL50000 UNIT PO; FUROSEMIDE40 MG PO; IMURAN; LEVOTHYROXINE100 MCG PO; NAPROXEN500 MG PO; OMEPRAZOLE20 MG PO; PRILOSEC20 MG PO; PROPRANOLOL HCL20 MG PO; SPIRONOLACTONE50 MG PO; TRAMADOL HCL50 MG PO; TYLENOL WITH C1 EAC1 PO
[2017-07-18] MEDS ORDERED: KRISTALOSE10 GM PO (17:48)
--- NOTE | 2017-07-18 21:39 | NUR ---
PT ARRIVED TO FLOOR VIA STRETCHER, CHARGE NURSE COMPLETED ADMISSION. PT IS TUCKED IN AND CALL LIGHT WITHIN REACH.
--- NOTE | 2017-07-18 23:33 | NUR ---
PT'S SANDWICH ARRIVED, SHE IS AWAKE IN BED EATING AT THIS TIME.
--- NOTE | 2017-07-19 06:08 | NUR ---
[facility] DOWN FROM 0100 TO 0530, SEE PAPER CHART FOR RECORDS.
--- NOTE | 2017-07-19 06:23 | NUR ---
PT JUST HAD 3RD BM, HELD 0600 DOSE OF LACTULOSE. PT DENIES FURTHER NEEDS AT THIS TIME. CALL LIGHT IS WITHIN REACH.
--- NOTE | 2017-07-19 08:03 | NUR ---
MJ ASSISTED TO THE BR WITH A STBY ASSIST. PATIENT HAD LOOSE STOOL. THIS IS PATIENTS 5TH RECORDED STOOL. CHANGED LACTALOSE SCHEDULE PER DR. RIBERA ORDERS. PATIENT STATING NO OTHER COMPLAINTS. ORDERED BREAKFAST AT THIS TIME. PATIENT HAS FAMILY AT BEDSIDE. PLAN OF CARE OF DAY DISCUSSED.
--- NOTE | 2017-07-19 08:30 | NUR ---
PATIENT RESTING IN BED TALKING TO HER DAUGHTER IN ROOM. PATIENT WASHED HANDS AND FACE. ORAL CARE SET UP FOR USE IN BATH ROOM FOR NEXT TIME SHE GETS UP. PATIENT HAS FRESH ICE WATER. NO OTHER NEEDS AT THIS TIME.
--- NOTE | 2017-07-19 09:39 | NUR ---
UPDATED DR. INDIRA NÚÑEZ TO THE FREQUENCE OF STOOL THAT PATIENT HAS HAD WITH DOSE OF LACTULOSE. PATIENT CURRENTLY HAS HAD 8 BMS. GAVE 0900 DOSE WITH NEW ORDER TO HOLD AND OBSERVE NEXT DOSE. UPDATED PATIENT WITH NEW ORDERS. PATIENT REQUESTING NO OTHER VISITORS AT THIS TIME. SIGN PLACED ON PATIENTS DOOR.
--- NOTE | 2017-07-19 10:00 | NUR ---
PATIENT RESTING IN BED. CALL BUTTON IN REACH. NO NEEDS AT THIS TIME. PATIENT STATES THAT SHE HAS PAIN IN STOMACH UNTIL SHE HAS A BM THEN THE PAIN IS GONE.
--- NOTE | 2017-07-19 10:14 | NUR ---
ROUNDED WITH DR. JACOBSON. EDUCATED ABOUT AMMONIA LEVELS AND NEW DOSE OF LACTULOSE. PATIENT AND DAUGHTER IN ROOM FOR ROUNDING.
[2017-07-19] MEDS ORDERED: LACTULOSE10 GM/151 PO (10:37)
--- NOTE | 2017-07-19 11:09 | NUR ---
ORDER FOR DIETARY CONSULT MADE. THEY WILL BE UP AFTER 11:00 TO GIVE INSTRUCTIONS.
--- NOTE | 2017-07-19 12:17 | NUR ---
pharmacy in room to go over medication. daughter and patient in room for information. awaiting ting from dietary to go over diet plan.
--- NOTE | 2017-07-19 12:21 | NUR ---
dietary in room to go over diet plan.
--- NOTE | 2017-07-19 12:52 | NUR ---
vitals taken. fruit sprayer in room. iv removed. dietary was in room to give information. booklet given to patient.
--- NOTE | 2017-07-19 13:26 | NUR ---
LATE ENTRY FROM 12:20 PM: CONSULT RECEIVED FOR HELPING PATIENT WITH CIRRHOSIS UNDERSTAND WHAT SHE CAN EAT. BOTH OF HER DAUGHTERS WERE THERE. THIS IS A NEW DIAGNOSIS FOR THE PATIENT. SHE IS HAVING SOME ABDOMINAL PAIN. SHE DOESN'T HAVE A GREAT APPETITE, BUT SHE IS EATING. ONE SUGGESTION IS TO EAT 4 TO 6 SMALLER MEALS/SNACKS INSTEAD OF 2 OR 3 LARGE MEALS. LOW-SODIUM SNACK SUGGESTIONS PROVIDED. THEN WE TALKED ABOUT LIMITING HIGH SODIUM FOODS. WE LOOKED AT A SAMPLE FOOD LABEL, FOODS RECOMMENDED VS FOODS TO LIMIT, AND ALSO DISCUSSED SALT SUBSTITUTES. PATIENT THINKS EATING 4 OR 5 TIMES A DAY WILL HELP HER. SHE THINKS SHE WILL DO OK WITH LOW-SODIUM FOODS. HER DAUGHTERS ONLY HAD 1 OR 2 QUESTIONS. I ALSO PROVIDED THEM WITH A LOW-SODIUM GROCERY LIST. IF THEY HAVE OTHER QUESTIONS OR CONCERNS THEY CAN CALL ME - MY CARD WAS PROVIDED.
== END 2017-07-19 13:23 | disposition home or self-care (01) ==
LOC: ED 17:23 → MS 17:26 → ED 20:06 → MS 07-19 13:23
PROVIDERS: ADMIT Internal Medicine
DX: K72.90 Hepatic failure, unspecified without coma (principal); E03.9 Hypothyroidism, unspecified; K75.4 Autoimmune hepatitis; K74.60 Unspecified cirrhosis of liver; F39 Unspecified mood [affective] disorder; K21.9 Gastro-esophageal reflux disease without esophagitis; Z79.899 Other long term (current) drug therapy; Z88.5 Allergy status to narcotic agent; Z79.1 Long term (current) use of non-steroidal anti-inflammatories (NSAID)
CPT/HCPCS: 36415; 51798; 80053; 81001; 82140; 83735; 85025; 99285; G0378; J7030

== ENCOUNTER 2018-01-28 17:38 | Emergency (ER) | payer OTHER ==
[~2018-01-28] VITALS: Ht 162.6 cm; Wt 113.4 kg
--- OUTSIDE RECORDS SUMMARY | ~2018-01-28 | XMS | Encounter Summary ---
Demographics + + + | Address | [address] | | | [place] [address] | + + + | Home Phone [...] + | Author | [facility] | | | and [place] | + + + | Organization | [facility] | | | and [place] | [...] Team Providers + +------+ + | Care Outreach Clinician Name | Role | Phone | + +------+ + | Morgan Conner DO | PCP | | + +------+ + [...] + + | 11/07/ | Emergency | [facility] | Velia Smith, | Inflammatory | | 2018 | | [facility] | [address] | arthritis (Primary | | | | CENTER [address] | [facility] | Dx); Acute pain of | | | | [place] | [place] [address] | right knee | | | | [address] | [phone] | | | | | [phone] | | | | | | | Kermit Silverio MD | | | | | | [address] | | | | | | [place] | | | | | | [address] | | | | | | | [...] + + + as of this encounter Last Filed Vital Signs + + + + | Vital Sign | Reading | Time Taken | + + + + | Blood Pressure | 127/56 | 11/07/20172056 PDT | + + + + | Pulse | 76 | 11/07/20172056 PDT | + + + + | Temperature | 37.1 C (98.7 F) | 11/07/20171636 PDT | + + + + | Respiratory Rate | 16 | 11/07/2017 1908 PDT | + + + + | Oxygen Saturation | 98% | 11/07/20172056 PDT | + + + + | Inhaled Oxygen | - | - | | Concentration | | | + + + + | Weight | - | - | + + + + | Height | 165.1 cm (5' 5") | 11/07/2017 1637 PDT | + + + + | Body Mass Index | - | - | + + + + in this encounter Discharge Instructions Velia Smith MD - 11/07/2017Radha brace for up to 2 weeks Crutches Medrol Dosepak Oxycodone for Pain Benadryl for itching Follow-up with orthopedics The following attachments cannot be sent through Care Everywhere.Knee Pain (Algerian)Osteoar thritis, 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 | Disp. | Refills | Start | End Date | | | | | | Date | | + + +---------+---------+ + + | albuterol (PROAIR | Inhale 2 puffs into | | | | | | HFA) 90 mcg/puff | the lungs every 4 | | | | | | inhaler | hours as needed for | | | | | | | Wheezing or | | | | | | | Shortness of Breath. | | | | | + + +---------+---------+ + + | azaTHIOprine | Take 25 mg by mouth | | | | | | (IMURAN) 50 mg | Daily. | | | | | | tablet | | | | | | + + +---------+---------+ + + | beclomethasone | Inhale 2 [...] | | | | | + + +---------+---------+ + + | diphenhydrAMINE | Take 1 [...] | | | | | + + +---------+---------+ + + | fexofenadine | Take 180 mg by mouth | | | 01/12/20 | | | (JELANI) 180 mg | Daily as needed. | | | 12 | | | tablet | | | | | | + + +---------+---------+ + + | furosemide (LASIX) | | | | 08/22/19 | | | 80 mg tablet | | | | 18 | | + + +---------+---------+ + + | levothyroxine | Take 100 mcg by | | | 06/12/19 | | | (SYNTHROID, | mouth every morning | | | 16 | | | LEVOTHROID) 100 mcg | (before breakfast). | | | | | | tablet | | | | | | + + +---------+---------+ + + | methylPREDNISolone | Follow package | 21 | 0 | 11/08/19 | | | (MEDROL DOSEPAK) 4 | directions. | tablet | | 18 | | | mg tablet | | | | | | + + +---------+---------+ + + | omeprazole | Take 40 mg by mouth | | | 06/12/19 | | | (PRILOSEC) 40 MG | every morning | | | 16 | | | capsule | (before breakfast). | | | | | + + +---------+---------+ + + | propranolol | Take 20 mg by mouth | | | | | | (INDERAL) 20 MG | 2 times daily. | | | | | | tablet | Patient states only | | | | | | | taking one in the | | | | | | | morning | | | | | + + +---------+---------+ + + | simethicone | Take 160 mg by mouth | | | | | | (MYLICON) 80 mg | as needed for | | | | | | chewable tablet | Flatulence. | | | | | + + +---------+---------+ + + | spironolactone | Take 100 mg by mouth | | | 01/12/20 | | | (ALDACTONE) 100 MG | Daily. | | | 12 | | | tablet | | | | | | + + +---------+---------+ + + | tolterodine | Take 4 mg by mouth | | | 11/25/19 | | | (DETROL LA) 4 MG 24 | Daily. | | | 16 | | | hr capsule | | | | | | + + +---------+---------+ + + | zolpidem (AMBIEN) | Take 5 mg by mouth | | | 11/04/19 | | | 5 mg tablet | nightly as needed. | | | 16 | | + + +---------+---------+ + + | oxyCODONE | Take 1-2 tablets by | 15 | 0 | 11/08/19 | | | (ROXICODONE) 5 mg | mouth every 4 hours | tablet | | 18 | 8 | | tablet | as needed for Pain. | | | | | + + +---------+---------+ + + as of this encounter Plan of Treatment +--------+ + + + + | Date | Type | Specialty | Care Team | Description | +--------+ + + + + | 02/07/ | Appointment | Radiology | Pj Ochoa MD | | | 2017 | | | [address] | | | | | | [place], [place] | | | | | | [address] | | | | | | [phone] | | | | | | | | +--------+ + + + + | 02/20/ | Office | Orthopedic Surgery | Quirino Olson | | | 2017 | Visit | | [address] | | | | | | [place] | | | | | | [place] [address] | | | | | | [phone] | | | | | | | | +--------+ + + + + | 04/17/ | Office | Pulmonology | Duncan Bass, | | | 2018 | Visit | | [address] | | | | | | [place], [address] | | | | | | [place] | | | | | | [address] | | | | | | | | +--------+ + + + + as of this encounter Procedures + +--------+ + + + | Procedure Name | Priori | Date/Time | Associated Diagnosis | Comments | | | ty | | | | + +--------+ + + + | CULTURE, BODY FLUID, | STAT | 11/07/2017 | | Results for this | | AEROBE | | 1936 PDT | | procedure are in the | | | | | | results section. | + +--------+ + + + | CULTURE, BODY FLUID, | STAT | 11/07/2017 | | Results for this | | ANAEROBE | | 1936 PDT | | procedure are in the | | | | | | results section. | + +--------+ + + + | CULTURE, BODY FLUID, | STAT | 11/07/2017 | | Results for this | | STERILE, SMEAR, | | 1936 PDT | | procedure are in the | | WITH ANAEROBES | | | | results section. | + +--------+ + + + | ARTHROCENTESIS | Routin | 11/07/2017 | | Results for this | | | e | 1935 PDT | | procedure are in the | | | | | | results section. | + +--------+ + + + | CRYSTAL | STAT | 11/07/2017 | | Results for this | | IDENTIFICATION, BODY | | 1935 PDT | | procedure are in the | | FLUID | | | | results section. | + +--------+ + + + | CELL COUNT WITH | STAT | 11/07/2017 | | Results for this | | DIFFERENTIAL, BODY | | 1935 PDT | | procedure are in the | | FLUID | | | | results section. | + +--------+ + + + | VAS LOWER EXTREMITY | Routin | 11/07/2017 | | Results for this | | VENOUS RIGHT | e | 1845 PDT | | procedure are in the | | | | | | results section. | + +--------+ + + + | EXTRA LAVENDER TOP | Routin | 11/07/2017 | | Results for this | | TUBE | e | 1749 PDT | | procedure are in the | | | | | | results section. | + +--------+ + + + | EXTRA GREEN TOP TUBE | Routin | 11/07/2017 | | Results for this | | | e | 1749 PDT | | procedure are in the | | | | | | results section. | + +--------+ + + + | EXTRA GOLD TOP TUBE | Routin | 11/07/2017 | | Results for this | | | e | 1749 PDT | | procedure are in the | | | | | | results section. | + +--------+ + + + | EXTRA BLUE TOP TUBE | Routin | 11/07/2017 | | Results for this | | | e | 1749 PDT | | procedure are in the | | | | | | results section. | + +--------+ + + + | SEDIMENTATION RATE | STAT | 11/07/2017 | | Results for this | | | | 1749 PDT | | procedure are in the | | | | | | results section. | + +--------+ + + + | CBC WITH | STAT | 11/07/2017 | | Results for this | | DIFFERENTIAL | | 1749 PDT | | procedure are in the | | | | | | results section. | + +--------+ + + + | C-REACTIVE PROTEIN, | STAT | 11/07/2017 | | Results for this | | HIGH SENSITIVITY | | 1749 PDT | | procedure are in the | | | | | | results section. | + +--------+ + + + | BASIC METABOLIC | STAT | 11/07/2017 | | Results for this | | PANEL | | 1749 PDT | | procedure are in the | | | | | | results section. | + +--------+ + + + | XR KNEE RIGHT 3 VW | STAT | 11/07/2017 | | Results for this | | | | 1659 PDT | | procedure are in the | | | | | | results section. | + +--------+ + + + in this encounter Results Culture, Body Fluid, Anaerobe (11/07/20171935) + + + + + | Component | Value | Ref Range | Performed At | + + + + + | Culture | No anaerobes isolated. | | [facility] | | | | | [facility] | | | | | [facility] - | | | | | LABORATORY | + + + + + + + | Specimen | + + | Body Fluid - Joint, | | Knee, Right | + + + + + + + | Performing | Address | City/State/Zipcode | Phone Number | | Organization | | | | + + + + + | [facility] | [address] | [place], [place] | [phone] | | [facility] | | [address] | | | - LABORATORY | | | | + + + + + | [facility] | [address] | [place] | | | [facility] | | [address] | | | - LABORATORY | | | | + + + + + Culture, Body Fluid, Aerobe (11/07/20171935) + + + + + | Component | Value | Ref Range | Performed At | + + + + + | Culture | No Growth | | [facility] | | | | | [facility] | | | | | CENTER - | | | | | LABORATORY | + + + + + | Gram Stain Result | 1+ White Blood Cells | | [facility] | | | | | [facility] | | | | | [facility] - | | | | | LABORATORY | + + + + + | Gram Stain Result | No organisms | | [facility] | | | seenComment: qc [place] | | [facility] | | | | | C[facility] - | | | | | LABORATORY | + + + + + + + | Specimen | + + | Body Fluid - Joint, | | Knee, Right | + + + + + + + | Performing | Address | City/State/Zipcode | Phone Number | | Organization | | | | + + + + + | [facility] | [address] | [place], [place] | [phone] | | [facility] | | [address] | | | - LABORATORY | | | | + + + + + | [facility] | [address] | [place], [place] | | | [facility] | | [address] | | | - LABORATORY | | | | + + + + + ARTHROCENTESIS (11/07/20171934) + + + | Narrative | Performed At | + + + | Velia Smith MD 11/07/2017 19:36 Arthrocentesis | | | Date/Time: 11/07/2017 19:35 Performed by: VELIA SMITH | | | Authorized by: VELIA SMITH Consent: Consent | | | obtained: Verbal Consent given by: Patient Risks | | | discussed: Bleeding, infection, pain and incomplete drainage | | | Alternatives discussed: No treatment Location: | | | Location: Knee Knee: R knee Anesthesia: | | | Anesthesia method: Local infiltration Local | | | anesthetic: Lidocaine 2% w/o epi Procedure details: | | | Preparation: Patient was prepped and draped in usual sterile | | | fashion Needle gauge: 18 G Ultrasound guidance: | | | no Approach: Medial Aspirate amount: 10 ml | | | Aspirate characteristics: Blood-tinged Steroid injected: | | | no Specimen collected: yes Post-procedure details: | | | Dressing: Adhesive bandage Patient tolerance of | | | procedure: Tolerated well, no immediate complications Comments: | | | Positive string sign | | + + + Crystal Identification, Body Fluid (11/07/20171934) + + + + + | Component | Value | Ref Range | Performed At | + + + + + | Specimen Source | Joint, Knee, Right | | [facility] | | | | | [facility] | | | | | C[facility] - | | | | | LABORATORY | + + + + + | Crystals Body Fluid, | No Crystals Seen | No Crystals Seen | [facility] | | Qual | | | [facility] | | | | | CENTER - | | | | | LABORATORY | + + + + + + + | Specimen | + + | Body Fluid - Joint, | | Knee, Right | + + + + + + + | Performing | Address | City/State/Zipcode | Phone Number | | Organization | | | | + + + + + | [facility] | [address] | [place] | [phone] | | [facility] | | [address] | | | - LABORATORY | | | | + + + + + | [facility] | [address] | [place], [place] | | | [facility] | | [address] | | | - LABORATORY | | | | + + + + + Cell Count with Differential, Body Fluid (11/07/20171934) + + + + + | Component | Value | Ref Range | Performed At | + + + + + | Specimen Source | Joint, Knee, Right | | [facility] | | | | | [facility] | | | | | CENTER - | | | | | LABORATORY | + + + + + | BF Appearance | Grossly Bloody (A) | Clear | [facility] | | | | | [facility] | | | | | CENTER - | | | | | LABORATORY | + + + + + | BF Nucleated cells | 631 (H) | 0 - 150 cells/uL | [facility] | | | | | [facility] | | | | | CENTER - | | | | | LABORATORY | + + + + + | BF RBC | 247,856 | cells/uL | [facility] | | | | | [facility] | | | | | CENTER - | | | | | LABORATORY | + + + + + | BF % Neutrophils | 70 | % | [facility] | | | | | [facility] | | | | | CENTER - | | | | | LABORATORY | + + + + + | BF % Lymphocytes | 25 | % | [facility] | | | | | [facility] | | | | | CENTER - | | | | | LABORATORY | + + + + + | BF % Macro/Gulf | 3 | % | [facility] | | | | | [facility] | | | | | CENTER - | | | | | LABORATORY | + + + + + | BF % Eosinophils | 2 | % | [facility] | | | | | [facility] | | | | | CENTER - | | | | | LABORATORY | + + + + + | BF Total cells | 100 | | [facility] | | counted | | | [facility] | | | | | CENTER - | | | | | LABORATORY | + + + + + + + | Specimen | + + | Body Fluid - Joint, | | Knee, Right | + + + + + + + | Performing | Address | City/State/Zipcode | Phone Number | | Organization | | | | + + + + + | [facility] | [address] | [place] | [phone] | | [facility] | | [address] | | | - LABORATORY | | | | + + + + + | [facility] | [address] | [place], [place] | | | [facility] | | [address] | | | - LABORATORY | | | | + + + + + VAS Lower Extremity Venous Right (11/07/2017 1845) + + + | Narrative | Performed [...] | to the ordering provider by the lead nuclear medicine technologist immediately | | | following the exam. Dictated and Signed by: Kunal Parrish MD | | | Electronically signed: 11/07/2017 8:20 PM | | + + + + + | Procedure Note | + + | Vitaly, Rad Results In - 11/07/20172022 PDT | | TECHNIQUE: Right lower extremity [...] the ordering provider by the | | lead nuclear medicine technologist immediately following the exam. | | [...] + + Extra Gold Top Tube (11/07/2017 1749) + +-------+ + + | Component | Value | Ref Range | Performed At | + +-------+ + + | EGDT | Done | | [facility] | | | | | [facility] | | | | | C[facility] - | | | | | LABORATORY | + +-------+ + + + + | Specimen | + + | Blood | + + + + + + + | Performing | Address | City/State/Zipcode | Phone Number | | Organization | | | | + + + + + | [facility] | [address] | [place], [place] | [phone] | | [facility] | | [address] | | | - LABORATORY | | | | + + + + + | [facility] | [address] | [place], [place] | | | [facility] | | [address] | | | - LABORATORY | | | | + + + + + Extra Lavender Top Tube (11/07/2017 1749) + +-------+ + + | Component | Value | Ref Range | Performed At | + +-------+ + + | Extra Lavender Top | Done | | [facility] | | Tube | | | [facility] | | | | | CENTER - | | | | | LABORATORY | + +-------+ + + + + | Specimen | + + | Blood | + + + + + + + | Performing | Address | City/State/Zipcode | Phone Number | | Organization | | | | + + + + + | [facility] | [address] | [place] | [phone] | | [facility] | | [address] | | | - LABORATORY | | | | + + + + + | [facility] | [address] | [place] | | | [facility] | | [address] | | | - LABORATORY | | | | + + + + + Extra Green Top Tube (11/07/2017 1749) + +-------+ + + | Component | Value | Ref Range | Performed At | + +-------+ + + | Extra Green Top Tube | Done | | [facility] | | | | | [facility] | | | | | CENTER - | | | | | LABORATORY | + +-------+ + + + + | Specimen | + + | Blood | + + + + + + + | Performing | Address | City/State/Zipcode | Phone Number | | Organization | | | | + + + + + | [facility] | [address] | [place], [place] | [phone] | | [facility] | | [address] | | | - LABORATORY | | | | + + + + + | [facility] | [address] | [place], [place] | | | [facility] | | [address] | | | - LABORATORY | | | | + + + + + Extra Blue Top Tube (11/07/2017 1749) + +-------+ + + | Component | Value | Ref Range | Performed At | + +-------+ + + | Extra Blue Top Tube | Done | | [facility] | | | | | [facility] | | | | | CENTER - | | | | | LABORATORY | + +-------+ + + + + | Specimen | + + | Blood | + + + + + + + | Performing | Address | City/State[facility] | Phone Number | | Organization | | | | + + + + + | [facility] | [address] | [place] | [phone] | | [facility] | | [address] | | | - LABORATORY | | | | + + + + + | [facility] | [address] | [place] | | | [facility] | | [address] | | | - LABORATORY | | | | + + + + + C-Reactive Protein, High Sensitivity (11/07/2017 1749) + + + + + | Component | Value | Ref Range | Performed At | + + + + + | CRP, High Sensitive | 8.63 (H) | <=3.00 mg/L | [facility] | | | | | [facility] | | | | | CENTER - | | | | | LABORATORY | + + + + + + + | Specimen | + + | Blood | + + + + + + + | Performing | Address | City/State/Zipcode | Phone Number | | Organization | | | | + + + + + | [facility] | [address] | [place], [place] | [phone] | | [facility] | | [address] | | | - LABORATORY | | | | + + + + + | [facility] | [address] | [place], [place] | | | [facility] | | [address] | | | - LABORATORY | | | | + + + + + Sedimentation Rate (11/07/2017 1749) + +--------+ + + | Component | Value | Ref Range | Performed At | + +--------+ + + | ESR | 70 (H) | <30 mm/hr | [facility] | | | | | [facility] | | | | | CENTER - | | | | | LABORATORY | + +--------+ + + + + | Specimen | + + | Blood | + + + + + + + | Performing | Address | City/State/Zipcode | Phone Number | | Organization | | | | + + + + + | [facility] | [address] | [place], [place] | [phone] | | [facility] | | [address] | | | - LABORATORY | | | | + + + + + | [facility] | [address] | [place], [place] | | | [facility] | | [address] | | | - LABORATORY | | | | + + + + + Basic Metabolic Panel (11/07/20171748) + + + + + | Component | Value | Ref Range | Performed At | + + + + + | NA | 136 | 136 - 149 mmol/L | [facility] | | | | | [facility] | | | | | C[facility] - | | | | | LABORATORY | + + + + + | K | 4.2 | 3.5 - 5.1 mmol/L | [facility] | | | | | [facility] | | | | | CENTER - | | | | | LABORATORY | + + + + + | CL | 105 | 98 - 109 mmol/L | [facility] | | | | | [facility] | | | | | CENTER - | | | | | LABORATORY | + + + + + | CO2 | 26 | 24 - 31 mmol/L | [facility] | | | | | [facility] | | | | | CENTER - | | | | | LABORATORY | + + + + + | ANION GAP | 5 | 3 - 16 mmol/L | [facility] | | | | | [facility] | | | | | CENTER - | | | | | LABORATORY | + + + + + | GLUCOSE | 209 (H) | 70 - 109 mg/dL | [facility] | | | | | [facility] | | | | | CENTER - | | | | | LABORATORY | + + + + + | BUN | 10 | 7 - 18 mg/dL | [facility] | | | | | [facility] | | | | | CENTER - | | | | | LABORATORY | + + + + + | Creatinine, | 0.89 | 0.60 - 1.30 mg/dL | [facility] | | Serum/Plasma | | | [facility] | | | | | CENTER - | | | | | LABORATORY | + + + + + | eGFR if not | >60Comment: GLOMERULAR | >=60 mL/min/1.73m2 | [facility] | | [place] | FILTRATION | | [facility] | | | RATE,ESTIMATED mL/min | | CENTER - | | | /1.02v9Lbge than 60 | | LABORATORY | | | Chronic kidney | | | | | disease,if found over a | | | | | 3-month period.Less than | | | | | 15 Kidney | | | | | failureFor | | | | | Americans,multiply the | | | | | calculated GFR by 1.21. | | | | | | | | + + + + + | CALCIUM | 8.6 | 8.3 - 10.5 mg/dL | [facility] | | | | | [facility] | | | | | CENTER - | | | | | LABORATORY | + + + + + | BUN/CREA | 11.2 | | [facility] | | | | | [facility] | | | | | CENTER - | | | | | LABORATORY | + + + + + + + | Specimen | + + | Blood | + + + + + + + | Performing | Address | City/State/Zipcode | Phone Number | | Organization | | | | + + + + + | [facility] | [address] | [place] | [phone] | | [facility] | | [address] | | | - LABORATORY | | | | + + + + + | [facility] | [address] | [place] | | | [facility] | | [address] | | | - LABORATORY | | | | + + + + + CBC with Differential (11/07/2017 174) + + + + + | Component | Value | Ref Range | Performed At | + + + + + | WBC | 4.6 | 4.0 - 11.0 K/uL | [facility] | | | | | [facility] | | | | | CENTER - | | | | | LABORATORY | + + + + + | RBC | 4.02 | 3.70 - 5.20 M/uL | [facility] | | | | | [facility] | | | | | CENTER - | | | | | LABORATORY | + + + + + | Hgb | 12.8 | 11.5 - 16.0 g/dL | [facility] | | | | | [facility] | | | | | CENTER - | | | | | LABORATORY | + + + + + | Hct | 38.0 | 34.0 - 47.0 % | [facility] | | | | | [facility] | | | | | CENTER - | | | | | LABORATORY | + + + + + | MCV | 94.5 | 83.0 - 101.0 fL | [facility] | | | | | [facility] | | | | | CENTER - | | | | | LABORATORY | + + + + + | MCH | 31.8 | 28.0 - 35.0 pg | [facility] | | | | | [facility] | | | | | CENTER - | | | | | LABORATORY | + + + + + | MCHC | 33.6 | 32.0 - 36.0 g/dL | [facility] | | | | | [facility] | | | | | CENTER - | | | | | LABORATORY | + + + + + | RDW-CV | 15.0 (H) | <15.0 % | [facility] | | | | | [facility] | | | | | CENTER - | | | | | LABORATORY | + + + + + | Platelet Count | 79 (L) | 140 - 440 K/uL | [facility] | | | | | [facility] | | | | | CENTER - | | | | | LABORATORY | + + + + + | MPV | 9.4 | fL | [facility] | | | | | [facility] | | | | | CENTER - | | | | | LABORATORY | + + + + + | % Neutrophils | 79.9 | 45.0 - 82.0 % | [facility] | | | | | [facility] | | | | | CENTER - | | | | | LABORATORY | + + + + + | % Lymphocytes | 10.1 (L) | 20.0 - 45.0 % | [facility] | | | | | [facility] | | | | | CENTER - | | | | | LABORATORY | + + + + + | % Monocytes | 8.2 | 4.0 - 12.0 % | [facility] | | | | | [facility] | | | | | CENTER - | | | | | LABORATORY | + + + + + | % Eosinophils | 1.2 | 0.0 - 5.0 % | [facility] | | | | | [facility] | | | | | CENTER - | | | | | LABORATORY | + + + + + | % Basophils | 0.6 | 0.0 - 1.0 % | [facility] | | | | | [facility] | | | | | CENTER - | | | | | LABORATORY | + + + + + | Absolute Neutrophils | 3.70 | 1.80 - 8.50 K/uL | [facility] | [facility] | | [facility] - | | | | | LABORATORY | + + + + + | Absolute Lymphocytes | 0.50 (L) | 0.60 - 3.20 K/uL | [facility] | | [facility] - | | | | | LABORATORY | + + + + + | Absolute Monocytes | 0.40 | 0.00 - 1.00 K/uL | [facility] | | [facility] | | | [facility] - | | | | | LABORATORY | + + + + + | Absolute Eosinophils | 0.10 | 0.00 - 0.40 K/uL | [facility] | | [facility] | | | [facility] - | | | | | LABORATORY | + + + + + | Absolute Basophils | 0.00 | 0.00 - 0.10 K/uL | [facility] | | | | | [facility] | | | | [facility] - | | | | | LABORATORY | + + + + + + + | Specimen | + + | Blood | + + + + + + + | Performing | Address | City/State/Zipcode | Phone Number | | Organization | | | | + + + + + | [facility] | [address] | [place] | [phone] | | [facility] | | [id number] | | | - LABORATORY | | | | + + + + + | [facility] | [address] | [place], [place] | | | [facility] | | [address] | | | - LABORATORY | | | | + + + + + XR Knee Right 3 Vw (11/07/20173) + + + | Narrative | Performed [...] | Vitaly, Rad Results In - 11/07/2017 1801 PDT CLINICAL INFORMATION: KNEE PAIN. | | [...] Parrish MD | | Electronically signed: 11/07/2017 5:58 PM | + + + +---------+ + + | Performing | Address | City/State/Zipcode | Phone Number | | Organization | | | | + +---------+ + + | [facility] | | | | + +---------+ + + in this encounter Visit Diagnoses + + | Diagnosis | + + | Inflammatory arthritis - Primary | + + | Unspecified inflammatory polyarthropathy | + + | Acute pain of right knee | + + Administered Medications + +--------+ +-------+------+------+ | Medication Order | MAR | Action | Dose | Rate | Site | | | Action | Date | | | | + +--------+ +-------+------+------+ | dexamethasone (DECADRON) tablet | Given | | 10 mg | | | | 10 mg 10 mg, Oral, ONCE, Tue | | 8 20:58 | | | | | 11/07/17 at 2044, For 1 dose | | PDT | | | | + +--------+ +-------+------+------+ +---+---+ | | | +---+---+ + +-------+ +--------+---+---+ | HYDROmorphone (DILAUDID) | Given | | 0.5 mg | | | | injection 0.5 mg 0.5 mg, | | 8 17:47 | | | | | Intravenous, EVERY 15 MIN PRN, | | PDT | | | | | Pain, Starting Mon11/07/17 at | | | | | | | 1734, For 4 doses | | | | | | + +-------+ +--------+---+---+ +-------+ +--------+---+---+ | Given | | 0.5 mg | | | | | 8 19:08 | | | | | | PDT | | | | +-------+ +--------+---+---+ +---+---+ | | | +---+---+ + +-------+ +-------+---+---+ | ketorolac (TORADOL) injection | Given | | 30 mg | | | | 30 mg 30 mg, Intravenous, ONCE, | | 8 20:01 | | | | | 11/07/17 at 1940, For 1 dose | | PDT | | | | + +-------+ +-------+---+---+ +---+---+ | | | +---+---+ + +-------+ +------+---+---+ | ondansetron (ZOFRAN) injection | Given | | 4 mg | | | | 4 mg 4 mg, Intravenous, ONCE, | | 8 17:45 | | | | | Tupaola 11/07/17 at 1740, For 1 dose | | PDT | | | | + +-------+ +------+---+---+ +---+---+ | | | +---+---+ in this encounter
--- OUTSIDE RECORDS SUMMARY | ~2018-01-28 | XMS | Encounter Summary ---
Demographics + + + | Address | [address] | | | [place] [address] | + + + | Home Phone | | + + + | Preferred Language | Unknown | + + + | Marital Status | | + + + | Congregation Affiliation | Unknown | + + + | Race | Unknown | + + + | Ethnic Group | Unknown | + + + Author + + + | Author | [facility] | | | and Keshawnana | + + + | Organization | [facility] | | | and Keshawnana [...] Team Providers + +------+ + | Care Scale Balancer Name | Role | Phone | + +------+ + | Morgan Conner DO | PCP | | + +------+ + Reason for Visit + + + | Reason | Comments | + + + | Knee Pain | right knee pain ONSET 2 mo | + + + Evaluate & Treat (Routine) + +--------+ + + + + | Status | Reason | Specialty | Diagnoses / | Referred By | Referred To | | | | | Procedures | Contact | Contact | + +--------+ + + + + | Authorized | | Orthopedic | Diagnoses | Dalila, | Kike, | | | | Surgery | Right knee | Morgan Vale DO | Ramon Carver MD | | | | | pain | [address] | [address] | | | | | | [address] [place] | | | | | | [address] | [place] | | | | | | [place], | [address] Phone: | | | | | | [place] [address] | [phone] | | | | | | Phone: | Fax: | | | | | | [phone] | [phone] | | | | | | Fax: | | | | | | | [phone] | | + +--------+ + + + + Encounter Details +--------+---------+ + + + | Date | Type | Department | Care Team | Description | +--------+---------+ + + + | 01/18/ | Office | [facility] | Quirino Olson | Right knee pain, | | 2018 | Visit | ORTHOPEDIC SURGERY | [address] | unspecified | | | | [address] [facility] | Ricardo Reyes | chronicity (Primary | | | | [place], [place] | [place] [address] | Dx); Primary | | | | [address] | [phone] | osteoarthritis of | | | | [phone] | | right knee; Acute | | [...] Blood Pressure | - | - | + + + + | Pulse | - | - | + + + + | Temperature | - | - | + + + + | Respiratory Rate | - | - | + + + + | Oxygen Saturation | - | - | + + + + | Inhaled Oxygen | - | - | | Concentration | | | + + + + | Weight | 120.2 kg (264 lb | 01/18/2018 1054 PDT | | | 15.9 oz) | | + + + + | Height | 165.1 cm (5' 5") | 01/18/20184 PDT | + + + + | Body Mass Index | 44.1 | 01/18/20181053 PDT | + + + + in this encounter Plan of Treatment +--------+ + + + + | Date | Type | Specialty | Care Team | Description | +--------+ + + + + | 02/07/ | Appointment | Radiology | Pj Ochoa MD | | | 2018 | | | [address] | | | | | | [place], [place] | | | | | | [address] | | | | | | [phone] | | | | | | | | +--------+ + + + + | 02/20/ | Office | Orthopedic Surgery | Quirino Olson | | | 2017 | Visit | | [address] | | | | | | Ricardo Reyes | | | | | | [place] [address] | | | | | | [phone] | | | | | | | | +--------+ + + + + | 04/17/ | Office | Pulmonology | Duncan Bass, | | | 2017 | Visit | | MD Baljinder Nelson | | | | | | [place], Level II | | | | | | [place] | | | | | | [address] | | | | | | | [...] this | | EXTERNAL SCAN | | 0000 PDT | | procedure are in the | | | | | | results section. | + +--------+ + + + | IMAGING REPORT - | | 11/30/2017 | | Results for this | | EXTERNAL SCAN | | 0000 PDT | | procedure are in the | | | | | | results section. | + +--------+ + + + in this encounter Results IMAGING REPORT - EXTERNAL SCAN (01/18/2018) + + + | Narrative | Performed At | + + + | Ordered by an | | | unspecified provider. | | + + + IMAGING REPORT - EXTERNAL SCAN (11/30/2017) + + + | Narrative | Performed At | + + + | Ordered by an | | | unspecified provider. | | + + + in this encounter Visit Diagnoses + + | Diagnosis | + + | Right knee pain, unspecified chronicity - Primary | + + | Primary osteoarthritis of right knee | + + | Primary localized osteoarthrosis, lower leg | + + | Acute pain of right knee | + + | Peripheral tear of medial meniscus of right knee as current injury, initial encounter | + + Administered Medications + +--------+ +------+------+ + | Medication Order | MAR | Action | Dose | Rate | Site | | | Action | Date | | | | + +--------+ +------+------+ + | betamethasone (CELESTONE | Given | | 9 mg | | Knee-Rig | | SOLUSPAN) injection 9 mg 9 mg, | | 8 12:00 | | | ht | | Other, ONCE, [facility] 01/18/18 at 1200, | | PDT | | | | | For 1 dose, Shake well. Not for | | | | | | | IV use. | | | | | | + +--------+ +------+------+ + +---+---+ | | | +---+---+ in this encounter
--- OUTSIDE RECORDS SUMMARY | ~2018-01-28 | XMS | Encounter Summary ---
Demographics + + + | Address | [address] | | | [place] [address] | + + + | Home Phone | | + + + | Preferred Language | Unknown | + + + | Marital Status | | + + + | Confucianist Affiliation | Unknown | + + + | Race | Unknown | + + + | Ethnic Group | Unknown | + + + Author + + + | Author | [facility] | | | and Keshawnana | + + + | Organization | [facility] | | | and [...] Team Providers + +------+ + | Care Process Consultant Name | Role | Phone | + +------+ + | Morgan Conner DO | PCP | | + +------+ + Encounter Details +--------+ + + + + | Date | Type | Department | Care Team | Description | +--------+ + + + + | 01/17/ | Ancillary | [facility] | Provider, | | | 2018 | Orders | [facility] EXTER[facility] | [address] | | | | | IMAGING | Aniya JAMES | | | | | [phone] | [place] [address] | | +--------+ + + + + [...] | | | 2017 | | | [address] | | | | | | [place], [place] | | | | | | [address] | | | | | | [phone] | | | | | | | | +--------+ + + + + | 02/20/ | Office | Orthopedic Surgery | Whitney, Quirino | | | 2018 | Visit | | [address] | | | | | | [address] [place] | | | | | | [place] [address] | | | | | | [phone] | | | | | | | | +--------+ + + + + | 04/17/ | Office | Pulmonology | Duncan Bass, | | | 2017 | Visit | | MD Baljinder Nelson | | | | | | [place], Level II | | | | | | [place] | | | | | | [address] | | | | | | | | +--------+ + + + + as of this encounter Results US Abdomen Complete (05/26/2017 0855) + + + | Narrative | Performed [...] | | | + +---------+ + + US Abdomen Complete (11/24/2016814) + + + | Narrative | Performed [...] | | | + +---------+ + + US Abdomen Complete (07/01/2016999) + + + | Narrative | Performed [...] | | | + +---------+ + + CT Abdomen Pelvis w Contrast (06/12/2014 1155) + + + | Narrative | Performed [...] + + in this encounter Visit Diagnoses Not on filein this encounter"
--- OUTSIDE RECORDS SUMMARY | ~2018-01-28 | XMS | Encounter Summary ---
Demographics + + + | Address | [address] | | | [place] [address] | + + + | Home Phone [...] Author | [facility] | | | and Keshawnana | + + + | Organization | [facility] | | | and Keshawnana [...] Team Providers + +------+ + | Care Tool Grinding Machine Operator Name | Role | Phone [...] + + | 11/07/ | Emergency | [facility] | Velia Smith, | Inflammatory | | 2018 | | MED CTR EM[facility] | [address] | arthritis (Primary | | | | CENTER [address] | [facility] [place] | Dx); Acute pain of | | | | [place] | [place] [address] | right knee | | | | [address] | [phone] | | | | | [phone] | | | | | | | Kermit Silverio MD | | | | | | [address] | | | | | | [place] | | | | | | [address] | | | | | | | [...] cannot be sent through Care Everywhere.Knee Pain (Botswanan)Osteoar thritis, What Is (Botswanan)in this encounter Medications at Time of Discharge [...] | | | 2017 | | | [address] | | | | | | [place], [place] | | | | | | [address] | | | | | | [phone] | | | | | | | | +--------+ + + + + | 02/20/ | Office | Orthopedic Surgery | Quirino Olson | | | 2017 | Visit | | [address] | | | | | | [place] | | | | | | [place] [address] | | | | | | [phone] | | | | | | | | +--------+ + + + + | 04/17/ | Office | Pulmonology | Duncan Bass, | | | 2018 | Visit | | [address] | | | | | | [place], Level II | | | | | | [place] | | | | | | [address] | | | | | | | [...] + | [facility] | [address] | [place], [place] | [phone] | | [facility] | | [address] | | | - LABORATORY | | | | + + + + + | [facility] | [address] | [place] | | | [facility] | | [address] | | | - LABORATORY | | | | + + + + + Culture, Body Fluid, Aerobe (11/07/20171935) + + + + + | Component | Value | Ref Range | Performed At | + + + + + | Culture | No Growth | | [facility] | | | | | [facility] | | | | | CENTER [...] + | [facility] [facility] | [address] | [place], [place] | [phone] | | [facility] | | [address] | | | - LABORATORY | | | | + + + + + | [facility] | [address] | [place], [place] | | | [facility] | | [address] | | | - LABORATORY | | [...] ST. | [address] | [place] | [phone] | | [facility] | | [address] | | | - LABORATORY | | | | + + + + + | [facility] | [address] | [place], [place] | | | [facility] | | [address] | | | - LABORATORY | | [...] + + + + | BF % Macro/Alpena | 3 | % | [facility] [...] + | [facility] | [address] | [place] | [phone] | | [facility] | | [address] | | | - LABORATORY | | | | + + + + + | [facility] | [address] | [place], [place] | | | [facility] | | [address] | | | - LABORATORY | | [...] | to the ordering provider by the cardiovascular technologist immediately | | | following the [...] the ordering provider by the | | cardiovascular technologist immediately following the exam. | | [...] + | [facility] | [address] | [place], [place] | [phone] | | [facility] | | [address] | | | - LABORATORY | | | | + + + + + | [facility] | [address] | [place], [place] | | | [facility] | | [address] | | | - LABORATORY | | | | + + + + + Extra Lavender Top Tube (11/07/2017 1749) + +-------+ + + | Component | Value | Ref Range | Performed At | + +-------+ + + | Extra Lavender Top | Done | | [facility] | | Tube | | | [facility] | | | | | CENTER - | | | | | LABORATORY | + +-------+ + + + + | Specimen | + + | Blood | + + + + + + + | Performing | Address | City/State/Zipcode | Phone Number | | Organization | | | | + + + + + | [facility] | [address] | [place] | [phone] | | [facility] | | [address] | | | - LABORATORY | | | | + + + + + | [facility] | [address] | [place] | | | [facility] | | [address] | | | - LABORATORY | | | | + + + + + Extra Green Top Tube (11/07/2017 1749) + +-------+ + + | Component | Value | Ref Range | Performed At | + +-------+ + + | Extra Green Top Tube | Done | | [facility] | | | | | [facility] | | | | | CENTER - | | | | | LABORATORY | + +-------+ + + + + | Specimen | + + | Blood | + + + + + + + | Performing | Address | City/State/Zipcode | Phone Number | | Organization | | | | + + + + + | [facility] | [address] | [place], [place] | [phone] | | [facility] | | [address] | | | - LABORATORY | | | | + + + + + | [facility] | [address] | [place], [place] | | | [facility] | | [address] | | | - LABORATORY | | | | + + + + + Extra Blue Top Tube (11/07/2017 1749) + +-------+ + + | Component | Value | Ref Range | Performed At | + +-------+ + + | Extra Blue Top Tube | Done | | [facility] | | | | | [facility] | | | | | CENTER - | | | | | LABORATORY | + +-------+ + + + + | Specimen | + + | Blood | + + + + + + + | Performing | Address | City/State/Unm Hospitalcode | Phone Number | | Organization | | | | + + + + + | [facility] | [address] | [place] | [phone] | | [facility] | | [address] | | | - LABORATORY | | | | + + + + + | [facility] | [address] | [place] | | | [facility] | | [address] | | | - LABORATORY | | | | + + + + + C-Reactive Protein, High Sensitivity (11/07/2017 1749) + + + + + | Component | Value | Ref Range | Performed At | + + + + + | CRP, High Sensitive | 8.63 (H) | <=3.00 mg/L | [facility] | | | | | [facility] | | | | | CENTER - | | | | | LABORATORY | + + + + + + + | Specimen | + + | Blood | + + + + + + + | Performing | Address | City/State/Zipcode | Phone Number | | Organization | | | | + + + + + | [facility] | [address] | [place], [place] | [phone] | | [facility] | | [address] | | | - LABORATORY | | | | + + + + + | [facility] | [address] | [place], [place] | | | [facility] | | [address] | | | - LABORATORY | | | | + + + + + Sedimentation Rate (11/07/2017 1749) + +--------+ + + | Component | Value | Ref Range | Performed At | + +--------+ + + | ESR | 70 (H) | <30 mm/hr | [facility] | | | | | [facility] | | | | | CENTER - | | | | | LABORATORY | + +--------+ + + + + | Specimen | + + | Blood | + + + + + + + | Performing | Address | City/State/Zipcode | Phone Number | | Organization | | | | + + + + + | [facility] | [address] | [place], [place] | [phone] | | [facility] | | [address] | | | - LABORATORY | | | | + + + + + | [facility] | [address] | [place], [place] | | | [facility] | | [address] | | | - LABORATORY | | [...] 10 | 7 - 18 mg/dL | [facility] | | | | | [facility] | | | | | CENTER - | | | | | LABORATORY | + + + + + | Creatinine, | 0.89 | 0.60 - 1.30 mg/dL | [facility] | | Serum/Plasma | | | [facility] | | | | | CENTER - | | | | | LABORATORY | + + + + + | eGFR if not | >60Comment: GLOMERULAR | >=60 mL/min/1.73m2 | [facility] | | BHUTANESE | FILTRATION | | [facility] | | | RATE,ESTIMATED mL/min | | CENTER - | | | /1.58x4Rqqk than 60 | | LABORATORY | | [...] + | [facility] | [address] | [place] | [phone] | | [facility] | | [address] | | | - LABORATORY | | | | + + + + + | [facility] | [address] | [place] | | | [facility] | | [address] | | | - LABORATORY | | | | + + + + + CBC with Differential (11/07/2017 174) + + + + + | Component | Value | Ref Range | Performed At | + + + + + | WBC | 4.6 | 4.0 - 11.0 K/uL | [facility] | | | | | [facility] | | | | | CENTER - [...] [address] | [place] | [phone] | | [facility] | | [address] | | | - LABORATORY | | | | + + + + + | [facility] | [address] | [place], [place] | | | [facility] | | [address] | | | - LABORATORY | | | | + + + + + XR Knee Right 3 Vw (11/07/20171) + + + | Narrative | Performed [...]
--- OUTSIDE RECORDS SUMMARY | ~2018-01-28 | XMS | Encounter Summary ---
Demographics + + + | Address | [address] | | | [place] [address] | + + + | Home Phone | | + + + | Preferred Language | Unknown | + + + | Marital Status | | + + + | Bahai Affiliation | Unknown | + + + | Race | Unknown | + + + | Ethnic Group | Unknown | + + + Author + + + | Author | [facility] | | | and Keshawnana | + + + | Organization | [facility] | | | and Keshawnana [...] Team Providers + +------+ + | Care Pulp Roller Name | Role | Phone | + [...] | unspecified | | | | [address] [facility] | [address] | chronicity (Primary | | | | [place] | [place] [address] | Dx) | | | | [address] | [phone] | | | | | [phone] | | | +--------+ + + + [...] | | | 2017 | | | [address] | | | | | | [place], [place] | | | | | | [address] | | | | | | [phone] | | | | | | | | +--------+ + + + + | 02/20/ | Office | Orthopedic Surgery | Quirino Olson | | | 2017 | Visit | | [address] | | | | | | [address] [place] | | | | | | [place] [address] | | | | | | [phone] | | | | | | | | +--------+ + + + + | 04/17/ | Office | Pulmonology | Kali Duncan, | | | 2017 | Visit | | MD Baljinder Nelson | | | | | | [place], Level II | | | | | | [place] | | | | | | [address] | | | | | | | | +--------+ + + + + + +--------+ + + | Name | Priori | Associated Diagnoses | Order Schedule | | | ty | | | + +--------+ + + | XR Knee Right 1 - 2 Vw | Routin | Right knee pain, | Expected: | | | e | unspecified | 01/17/2018, Expires: | | | | chronicity | 01/17/2019 | + +--------+ + + as of this encounter Visit Diagnoses + + | Diagnosis | + + | Right knee pain, unspecified chronicity - Primary | + +"
--- OUTSIDE RECORDS SUMMARY | ~2018-01-28 | XMS | Clinical Summary ---
Demographics + + + | Address | [address] | | | [place] [address] | + + + | Home Phone | | + + + | Preferred Language | Unknown | + + + | Marital Status | | + + + | Voodoo Affiliation | Unknown | + + + | Race | Unknown | + + + | Ethnic Group | Unknown | + + + Author + + + | Author | [facility] | | | and Keshawnana | + + + | Organization | [facility] | | | and Keshawnana [...] Team Providers + +------+ + | Care Ditching Machine Operating Engineer Name | Role | Phone | [...] | | | + + +---------+---------+------+------+-------+ | oxyCODONE | Take 1-2 tablets by | 15 | 0 | 07/1 | 09/2 | Disco | | (ROXICODONE) 5 mg | mouth every 4 hours | tablet | | 0/20 | 0/20 | ntinu | | tablet | as needed for Pain. | | | 18 | 18 | ed | + + +---------+---------+------+------+-------+ + + +-------+ +------+------+-------+ | Hospital, Clinic, or | Ordered | Route | Frequency | Star | End | Statu | | Other Facility | Dose | | | t | Date | s | | Administered | | | | Date | | | | Medication | | | | | | | + + +-------+ +------+------+-------+ | betamethasone | 9 mg | OTHER | ONCE | 09/2 | 09/2 | Ended | | (CELESTONE SOLUSPAN) | | | | 0/20 | 0/20 | | | injection 9 | | | | 18 | 18 | | | mgIndications: Right | | | | | | | | knee pain, | | | | | | | | unspecified | | | | | | | | chronicity | | | | | | | + + +-------+ +------+------+-------+ Active Problems + + + | Problem [...] | +--------+ + + + + | 01/18/ | Office | | Quirino Olson | Right knee pain, | | 2017 | Visit | | ANN Steen | unspecified | | | | | | chronicity (Primary | | | | | | Dx); Primary | | | | | | osteoarthritis of | | | | | | right knee; Acute | | [...] encounter | +--------+ + + + + | 01/17/ | Ancillary | | Provider, | | | 2017 | Orders | | MD Sosa | | +--------+ + + + + | 01/17/ | Orders Only | | Quirino Olson | Right knee pain, | | 2017 | | | ANN Steen | unspecified | | | | | | chronicity (Primary | | | | | | Dx) | +--------+ + + + + | 01/05/ | Ancillary | | Pj Ochoa MD | Autoimmune hepatitis | | 2017 | Orders | | | (HCC); Other | | | | | | cirrhosis of liver | | | | | | (HCC); Secondary | | | | | | esophageal varices | | | | | | without bleeding | | | | | | (HCC) | +--------+ + + + + | 11/07/ | Emergency | | Velia Smith, | Inflammatory | | 2017 | | | Kermit Fung | arthritis (Primary | | | | | A, | Dx); Acute pain of | | | | | | right knee | +--------+ + + + + from [...] + + + + Plan of Treatment +--------+ + + + + | Date | Type | Specialty | Care Team | Description | +--------+ + + + + | 02/07/ | Appointment | | Pj Ochoa MD | | | 2017 | | | [address] | | | | | | [place], [place] | | | | | | [address] | | | | | | [phone] | | | | | | | | +--------+ + + + + | 02/20/ | Office | | Quirino Olson | | | 2017 | Visit | | [address] | | | | | | [address] | | | | | | [place] [address] | | | | | | [phone] | | | | | | | | +--------+ + + + + | 04/17/ | Office | | Duncan Bass, | | | 2017 | Visit | | [address] [place] [address] | | | | | | [place], Level II | | | | | | [place] | | | | | | [id number] | | | | | | | | +--------+ + + + + + + + + + | Health [...] | 4 | | | | YEARS 50-74) | | | | + + [...] section. | + +--------+ + + + from Last 3 Months Results IMAGING REPORT - EXTERNAL SCAN (01/18/2018)Only the most recent of 2 results within the period is included. + + + | Narrative | Performed At | + + + | Ordered by an | | | unspecified provider. | | + + + Culture, Body Fluid, Aerobe (11/07/2017 1936) + + + + + | Component | Value | Ref Range | Performed At | + + + + + | Culture | No Growth | | [facility] | | | | | [facility] | | | | | [...] | | seenComment: qc ok | | [facility] | | | | | [...] + | [facility] | [address] | [place], [place] | [phone] | | [facility] | | [address] | | | - LABORATORY | | | | + + + + + | [facility] | [address] | [place], [place] | | | [facility] | | [address] | | | - LABORATORY | | | | + + + + + Culture, Body Fluid, Anaerobe (11/07/20171935) + + [...] + | [facility] | [address] | [place] | [phone] | | [facility] | | [address] | | | - LABORATORY | | | | + + + + + | [facility] | [address] | [place] | | | [facility] | | [address] | | | - LABORATORY | | [...] | Joint, Knee, Right | | [facility] | | | | | [facility] | | | | | C[facility] - | | | | | LABORATORY | + + + + + | Crystals Body Fluid, | No Crystals Seen | No Crystals Seen | [facility] | | Qual | | | [...] + | [facility] | [address] | [place] | [phone] | | [facility] | | [address] | | | - LABORATORY | | | | + + + + + | [facility] | [address] | [place] | | | [facility] | | [address] | | | - LABORATORY | | | | + + + + + Cell Count with Differential, Body Fluid (11/07/20171934) + + + + + | Component | Value | Ref Range | Performed At | + + + + + | Specimen Source | Joint, Knee, Right | | [facility] | | | | | [facility] | | | | | CENTER - [...] [facility] | | | | | [facility] | | | | | [...] + + + + | BF % Macro/Rensselaer | 3 | % | [facility] [...] + | [facility] | [address] | [place] | [phone] | | [facility] | | [address] | | | - LABORATORY | | | | + + + + + | [facility] | [address] | [place] | | | [facility] | | [address] | | | - LABORATORY | | [...] | to the ordering provider by the hybrid technologist immediately | | | following the [...] the ordering provider by the | | hybrid technologist immediately following the exam. | | | | Dictated and Signed by: Kunal Parrish MD | | Electronically signed: 11/07/2017 8:20 PM | + + + +---------+ + + | Performing | Address | City/State/Zipcode | Phone Number | | Organization | | | | + +---------+ + + | [facility] | | | | + +---------+ + + Extra Lavender Top Tube (11/07/2017 1749) + +-------+ + + | Component | Value | Ref Range | Performed At | + +-------+ + + | Extra Lavender Top | Done | | [facility] | | Tube | | | [facility] | | [...] + | [facility] | [address] | [place], [place] | [phone] | | [facility] | | [address] | | | - LABORATORY | | | | + + + + + | [facility] | [address] | [place], [place] | | | [facility] | | [address] | | | - LABORATORY | | | | + + + + + Extra Green Top Tube (11/07/2017 1749) + +-------+ + + | Component | Value | Ref Range | Performed At | + +-------+ + + | Extra Green Top Tube | Done | | [facility] | | | | | [facility] | | | | | [...] + | [facility] | [address] | [place] | [phone] | | [facility] | | [address] | | | - LABORATORY | | | | + + + + + | [facility] | [address] | [place] | | | [facility] | | [address] | | | - LABORATORY | | | | + + + + + Extra Gold Top Tube (11/07/2017 1749) + +-------+ + + | Component | Value | Ref Range | Performed At | + +-------+ + + | EGDT | Done | | [facility] | | | [...] + | [facility] | [address] | [place] | [phone] | | [facility] | | [address] | | | - LABORATORY | | | | + + + + + | [facility] | [address] | [place] | | | [facility] | | [address] | | | - LABORATORY | | | | + + + + + Extra Blue Top Tube (11/07/20171748) + +-------+ + + | Component | Value | Ref Range | Performed At | + +-------+ + + | Extra Blue Top Tube | Done | | [facility] | | | | | [facility] | | | | | CENTER - | | | | | LABORATORY | + +-------+ + + + + | Specimen | + + | Blood | + + + + + + + | Performing | Address | City/State/Zipcode | Phone Number | | Organization | | | | + + + + + | [facility] | [address] | [place], [place] | [phone] | | [facility] | | [address] | | | - LABORATORY | | | | + + + + + | [facility] | [address] | [place], [place] | | | [facility] | | [address] | | | - LABORATORY | | | | + + + + + Sedimentation Rate (11/07/2017 1749) + +--------+ + + | Component | Value | Ref Range | Performed At | + +--------+ + + | ESR | 70 (H) | <30 mm/hr | [facility] | | | | | [facility] | | | | | CENTER - | | | | | LABORATORY | + +--------+ + + + + | Specimen | + + | Blood | + + + + + + + | Performing | Address | City/State/Zipcode | Phone Number | | Organization | | | | + + + + + | [facility] | [address] | [place] | [phone] | | [facility] | | [address] | | | - LABORATORY | | | | + + + + + | [facility] | [address] | [place] | | | [facility] | | [address] | | | - LABORATORY | | | | + + + + + CBC with Differential (11/07/2017 1749) + + + + + | Component | Value | Ref Range | Performed At | + + + + + | WBC | 4.6 | 4.0 - 11.0 K/uL | [facility] | | | | | [facility] | | | | | CENTER - [...] 0.00 | 0.00 - 0.10 K/uL | [facility] | | | | | [facility] | | | | | CENTER - [...] [address] | [place] | [phone] | | [facility] | | [address] | | | - LABORATORY | | | | + + + + + | [facility] | [address] | [place], [place] | | | [facility] | | [address] | | | - LABORATORY | | | | + + + + + C-Reactive Protein, High Sensitivity (11/07/2017 1749) + + + + + | Component | Value | Ref Range | Performed At | + + + + + | CRP, High Sensitive | 8.63 (H) | <=3.00 mg/L | [facility] | | | | | [facility] | | | | | CENTER - | | | | | LABORATORY | + + + + + + + | Specimen | + + | Blood | + + + + + + + | Performing | Address | City/State/Zipcode | Phone Number | | Organization | | | | + + + + + | [facility] | [address] | [place], [place] | [phone] | | [facility] | | [address] | | | - LABORATORY | | | | + + + + + | [facility] | [address] | [place], [place] | | | [facility] | | [address] | | | - LABORATORY | | | | + + + + + Basic Metabolic Panel (11/07/2017 1749) + + + + + | Component | Value | Ref Range | Performed At | + + + + + | NA | 136 | 136 - 149 mmol/L | [facility] | | | | | [facility] | | | | | CENTER - | | | | | LABORATORY | + + + + + | K | 4.2 | 3.5 - 5.1 mmol/L | [facility] | | | [...] | 7 - 18 mg/dL | [facility] | | | | | [facility] | | | | | CENTER - | | | | | LABORATORY | + + + + + | Creatinine, | 0.89 | 0.60 - 1.30 mg/dL | [facility] | | Serum/Plasma | | | [facility] | | | | | CENTER - | | | | | LABORATORY | + + + + + | eGFR if not | >60Comment: GLOMERULAR | >=60 mL/min/1.73m2 | [facility] | | [place] | FILTRATION | | [facility] | | | RATE,ESTIMATED mL/min | | CENTER - | | | /1.92b3Qgwf than 60 | | LABORATORY | | [...] 8.6 | 8.3 - 10.5 mg/dL | [facility] | | | | | [facility] | | | | | CENTER - | | | | | LABORATORY | + + + + + | BUN/HEAVEN | 11.2 | | [facility] | | | | | [facility] | | | | | CENTER - [...] [address] | [place] | [phone] | | [facility] | | [address] | | | - LABORATORY | | | | + + + + + | [facility] | [address] | [place] | | | [facility] | | [address] | | | - LABORATORY | | | | + + + + + XR Knee Right 3 Vw (11/07/2017 1659) + + + | Narrative | Performed [...] | Jacobo Haider Results In - 11/07/2017 1801 PDT CLINICAL [...] | | | + +---------+ + + from Last 3 Months Insurance + +--------+ +--------+-------+---------+ | Payer | Benefi | Subscriber | Type | Phone | Address | | | t Plan | ID | | | | | | / | | | | | | | Group | | | | | + +--------+ +--------+-------+---------+ | HEALTH | [employer] | [id number] | Indemn | | | | SERVICE [...] | + +--------+ +--------+ + + | LESLYE WHITLEY | Person | Self [birth year] | 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
--- OUTSIDE RECORDS SUMMARY | ~2018-01-28 | XMS | Encounter Summary ---
Demographics + + + | Address | [address] | | | [place] [address] | + + + | Home Phone [...] | Author | [facility] | | | and Keshawnana | + + + | Organization | [facility] | | [...] Team Providers + +------+ + | Care County Administrator Name | Role | Phone | + +------+ + | Morgan Conner DO | PCP | | + +------+ + Encounter Details +--------+ + + + + | Date | Type | Department | Care Team | Description | +--------+ + + + + | 01/05/ | Ancillary | [facility] | Pj Ochoa MD | Autoimmune hepatitis | | 2018 | Orders | MED CTR XRAY [address] | [address] | (HCC); Other | | | | [address] | [place], [place] | cirrhosis of liver | | | | [place] [address] | [address] | (HCC); Secondary | | | | [phone] | [phone] | esophageal varices | | | | | | without bleeding | | | | | | (HCC) | +--------+ + + + + Social [...] [place] | | | | | | [place], [place] | | | | | | [address] | | | | | | [phone] | | | | | | | | +--------+ + + + + | 02/20/ | Office | Orthopedic Surgery | Quirino Olson | | | 2017 | Visit | | [address] | | | | | | [address] | | | | | | [place] [address] | | | | | | [phone] | | | | | | | | +--------+ + + + + | 04/17/ | Office | Pulmonology | Duncan Bass, | | | 2017 | Visit | | MD Baljinder Nelson | | | | | | [place], Level II | | | | | | [place] | | | | | | [address] | | | | | | | | +--------+ + + + + + +--------+ + + | Name | Priori | Associated Diagnoses | Order Schedule | | | ty | | | + +--------+ + + | US Abdomen Complete | Routin | Autoimmune | Expected: | | | e | hepatitis (HCC) | 01/05/2018, Expires: | | | | Other cirrhosis of | 01/05/2019 | | | | liver (HCC) | | | | | Secondary esophageal | | | | | varices without | | | | | bleeding (HCC) | | + +--------+ + + as of this encounter Visit Diagnoses + + | Diagnosis | + + | Autoimmune hepatitis (HCC) | + + | Autoimmune hepatitis | + + | Other cirrhosis of liver (HCC) | + + | Secondary esophageal varices without bleeding (HCC) | + + | Esophageal varices without mention of bleeding in diseases classified elsewhere | + +"
--- OUTSIDE RECORDS SUMMARY | ~2018-01-28 | XMS | Encounter Summary ---
Demographics + + + | Address | [address] | | | [place] [address] | + + + | Home Phone | | + + + | Preferred Language | Unknown | + + + | Marital Status | | + + + | Protestant Affiliation | Unknown | + + + | Race | Unknown | + + + | Ethnic Group | Unknown | + + + Author + + + | Author | [facility] | | | and Keshawnana | + + + | Organization | [facility] [...] Team Providers + +------+ + | Care Corporate Pilot Name | Role | Phone | + +------+ + | Morgan Conner DO | PCP | | + +------+ + Encounter Details +--------+ + + + + | Date | Type | Department | Care Team | Description | +--------+ + + + + | 01/05/ | Ancillary | [facility] | Pj Ochoa MD | Autoimmune hepatitis | | 2018 | Orders | MED CTR XRAY [address] | [address] | (HCC); Other | | | | [address] | [place], [place] | cirrhosis of liver | | | | [place] [address] | [address] | (HCC); Secondary | | | | [phone] | [phone] | esophageal varices | | | | [...] [place] | | | | | | [place], [place] | | | | | | [address] | | | | | | [phone] | | | | | | | | +--------+ + + + + | 02/20/ | Office | Orthopedic Surgery | Quirino Olson | | | 2017 | Visit | | [address] | | | | | | [address] | | | | | | [place] [address] | | | | | | [phone] | | | | | | | | +--------+ + + + + | 04/17/ | Office | Pulmonology | Duncan Bass, | | | 2017 | Visit | | MD Baljinder Nelson | | | | | | [place], Level II | | | | | | [place] | | | | | | [id number] | | | | | | | [...]
--- OUTSIDE RECORDS SUMMARY | ~2018-01-28 | XMS | Encounter Summary ---
Demographics + + + | Address | [address] | | | [place] [address] | + + + | Home Phone [...] + | Author | [facility] | | | and Keshawnana | + + + | Organization | [facility] | | | and Keshawnana [...] Team Providers + +------+ + | Care Kennel Operator Name | Role | Phone | [...] | | | [place] | [place] [address] | Dx) | | | | [address] | [phone] | | | | | [phone] | | | +--------+ + + + [...] [place] | | | | | | [place], [place] | | | | | | [address] | | | | | | [phone] | | | | | | | | +--------+ + + + + | 02/20/ | Office | Orthopedic Surgery | Quirino Olson | | | 2017 | Visit | | [address] | | | | | | [address] | | | | | | [place] [address] | | | | | | [phone] | | | | | | | | +--------+ + + + + | 04/17/ | Office | Pulmonology | Kali Duncan, | | | 2017 | Visit | | MD Baljinder Nelson | | | | | | [place], Level II | | | | | | [place] | | | | | | [address] | | | | | | | [...]
--- OUTSIDE RECORDS SUMMARY | ~2018-01-28 | XMS | Encounter Summary ---
Demographics + + + | Address | [address] | | | [place] [address] | + + + | Home Phone | | + + + | Preferred Language | Unknown | + + + | Marital Status | | + + + | Rastafari Affiliation | Unknown | + + + | Race | Unknown | + + + | Ethnic Group | Unknown | + + + Author + + + | Author | [facility] | | | and Keshawnana | + + + | Organization | [facility] | | | and [...] Providers + +------+ + | Care Engineering Technician Parking Name | Role | Phone | + [...] | | | | | pain | [address] | [address] | | | | | [address] [place] | | | | | | [address] | [place] | | | | | | [place], | [address] Phone: | | | | | | [place] [address] | [phone] | | | | | | Phone: | Fax: | | | | | | [phone] | [phone] | | | | | | Fax: | | | | | | | [phone] | | + +--------+ + + + + Encounter Details +--------+---------+ + + + | Date | Type | Department | Care Team | Description | +--------+---------+ + + + | 01/18/ | Office | [facility] | Quirino Olson | Right knee pain, | | 2018 | Visit | ORTHOPEDIC SURGERY | [address] | unspecified | | | | [address] [facility] | [address] | chronicity (Primary | | | | [place], [place] | [place] [address] | Dx); Primary | | | | [address] | [phone] | osteoarthritis of | | | | [phone] | | right knee; Acute | | [...] [place] | | | | | | [place], [place] | | | | | | [address] | | | | | | [phone] | | | | | | | | +--------+ + + + + | 02/20/ | Office | Orthopedic Surgery | Quirino Olson | | | 2017 | Visit | | [address] | | | | | | [address] | | | | | | [place] [address] | | | | | | [phone] | | | | | | | | +--------+ + + + + | 04/17/ | Office | Pulmonology | Duncan Bass, | | | 2017 | Visit | | MD Baljinder Nelson | | | | | | [place], Level II | | | | | | [place] | | | | | | [address] | | | | | | | [...] | | ht | | Other, ONCE, [facility] 01/18/18 at 1200, | | PDT | | | | | For 1 dose, Shake well. Not for | | | | | | | IV use. | | | | | | + +--------+ +------+------+ + +---+---+ | | | +---+---+ in this encounter
--- OUTSIDE RECORDS SUMMARY | ~2018-01-28 | XMS | Encounter Summary ---
Demographics + + + | Address | [address] | | | [place] [address] | + + + | Home Phone [...] + | Author | [facility] | | | and Keshawnana | + + + | Organization | [facility] | | [...] Team Providers + +------+ + | Care Wellness Director Name | Role | Phone | [...] [place] | | | | | [phone] | [place] [address] | | +--------+ + + + + [...] | | | 2017 | | | [address] | | | | | | [place], [place] | | | | | | [address] | | | | | | [phone] | | | | | | | | +--------+ + + + + | 02/20/ | Office | Orthopedic Surgery | Whitney, Quirino | | | 2018 | Visit | | [address] | | | | | | [address] [place] | | | | | | [place] [address] | | | | | | [phone] | | | | | | | | +--------+ + + + + | 04/17/ | Office | Pulmonology | Duncan Bass, | | | 2017 | Visit | | MD Baljinder Nelson | | | | | | [place], Level II | | | | | | [place] | | | | | | [address] | | | | | | | [...]
--- OUTSIDE RECORDS SUMMARY | ~2018-01-28 | XMS | Clinical Summary ---
Demographics + + + | Address | [address] | | | [place] [address] | + + + | Home Phone [...] + | Author | [facility] | | | and Keshawnana | + + + | Organization | [facility] [...] Team Providers + +------+ + | Care Fixed Income Manager Name | Role | Phone | [...] [place] | | | | | | [place], [place] | | | | | | [address] | | | | | | [phone] | | | | | | | | +--------+ + + + + | 02/20/ | Office | | Quirino Olson | | | 2017 | Visit | | [address] | | | | | | [place] | | | | | | [place] [address] | | | | | | [phone] | | | | | | | | +--------+ + + + + | 04/17/ | Office | | Duncan Bass, | | | 2017 | Visit | | [address] [place] [address] | | | | | | [place], [place] [address] | | | | | | [place] | | | | | | [id number] | | | | | | | [...] [facility] | | | | | [facility] | | | | | CENTER [...] | | seenComment: qc ok | | [facility] | | | | | CENTER [...] + | [facility] | [address] | [place], [place] | [phone] | | [facility] | | [address] | | | - LABORATORY | | | | + + + + + | [facility] | [address] | [place], [place] | | | [facility] | | [address] | | | - LABORATORY | | [...] + | [facility] | [address] | [place] | [phone] | | [facility] | | [address] | | | - LABORATORY | | | | + + + + + | [facility] | [address] | [place] | | | [facility] | | [address] | | | - LABORATORY | | [...] + | [facility] | [address] | [place] | [phone] | | [facility] | | [address] | | | - LABORATORY | | | | + + + + + | [facility] | [address] | [place] | | | [facility] | | [address] | | | - LABORATORY | | | | + + + + + Cell Count with Differential, Body Fluid (11/07/20171934) + + + + + | Component | Value | Ref Range | Performed At | + + + + + | Specimen Source | Joint, Knee, Right | | [facility] | | | | | [facility] | | | | | CENTER [...] [facility] | | | | | [facility] | | | | | CENTER [...] + + + + | BF % Macro/[place] | 3 | % | [facility] [...] + | [facility] | [address] | [place] | [phone] | | [facility] | | [address] | | | - LABORATORY | | | | + + + + + | [facility] | [address] | [place] | | | [facility] | | [address] | | | - LABORATORY | | [...] | to the ordering provider by the phlebotomy technologist immediately | | | following the [...] the ordering provider by the | | phlebotomy technologist immediately following the exam. | | [...] + | [facility] | [address] | [place], [place] | [phone] | | [facility] | | [address] | | | - LABORATORY | | | | + + + + + | [facility] | [address] | [place], [place] | | | [facility] | | [address] | | | - LABORATORY | | | | + + + + + Extra Green Top Tube (11/07/2017 1749) + +-------+ + + | Component | Value | Ref Range | Performed At | + +-------+ + + | Extra Green Top Tube | Done | | [facility] | | | | | [facility] | | | | | CENTER - | | | | | LABORATORY | + +-------+ + + + + | Specimen | + + | Blood | + + + + + + + | Performing | Address | City/State/Zipcode | Phone Number | | Organization | | | | + + + + + | [facility] | [address] | [place] | [phone] | | [facility] | | [address] | | | - LABORATORY | | | | + + + + + | [facility] | [address] | [place] | | | [facility] | | [address] | | | - LABORATORY | | [...] + | [facility] | [address] | [place] | [phone] | | [facility] | | [address] | | | - LABORATORY | | | | + + + + + | [facility] | [address] | [place] | | | [facility] | | [address] | | | - LABORATORY | | | | + + + + + Extra Blue Top Tube (11/07/20171748) + +-------+ + + | Component | Value | Ref Range | Performed At | + +-------+ + + | Extra Blue Top Tube | Done | | [facility] | | | | | [facility] | | | | | CENTER - | | | | | LABORATORY | + +-------+ + + + + | Specimen | + + | Blood | + + + + + + + | Performing | Address | City/State/Zipcode | Phone Number | | Organization | | | | + + + + + | [facility] | [address] | [place], [place] | [phone] | | [facility] | | [address] | | | - LABORATORY | | | | + + + + + | [facility] | [address] | [place], [place] | | | [facility] | | [address] | | | - LABORATORY | | | | + + + + + Sedimentation Rate (11/07/2017 1749) + +--------+ + + | Component | Value | Ref Range | Performed At | + +--------+ + + | ESR | 70 (H) | <30 mm/hr | [facility] | | | | | [facility] | | | | | CENTER - | | | | | LABORATORY | + +--------+ + + + + | Specimen | + + | Blood | + + + + + + + | Performing | Address | City/State/Zipcode | Phone Number | | Organization | | | | + + + + + | [facility] | [address] | [place] | [phone] | | [facility] | | [address] | | | - LABORATORY | | | | + + + + + | [facility] | [address] | [place] | | | [facility] | | [address] | | | - LABORATORY | | | | + + + + + CBC with Differential (11/07/2017 1749) + + + + + | Component | Value | Ref Range | Performed At | + + + + + | WBC | 4.6 | 4.0 - 11.0 K/uL | [facility] | | | | | [facility] | | | | | CENTER [...] | | | | | [facility] | | | | | CENTER - | | | | | LABORATORY | + + + + + + + | Specimen | + + | Blood | + + + + + + + | Performing | Address | City/State/Zipcode | Phone Number | | Organization | | | | + + + + + | [facility] | [address] | [place] | [phone] | | [facility] | | [address] | | | - LABORATORY | | | | + + + + + | [facility] | [address] | [place], [place] | | | [facility] | | [address] | | | - LABORATORY | | | | + + + + + C-Reactive Protein, High Sensitivity (11/07/2017 1749) + + + + + | Component | Value | Ref Range | Performed At | + + + + + | CRP, High Sensitive | 8.63 (H) | <=3.00 mg/L | [facility] | | | | | [facility] | | | | | CENTER [...] + | [facility] | [address] | [place], [place] | [phone] | | [facility] | | [address] | | | - LABORATORY | | | | + + + + + | [facility] | [address] | [place], [place] | | | [facility] | | [address] | | | - LABORATORY | | [...] 0.89 | 0.60 - 1.30 mg/dL | [facility] | | Serum/Plasma | | | [facility] | | | | | CENTER - | | | | | LABORATORY | + + + + + | eGFR if not | >60Comment: GLOMERULAR | >=60 mL/min/1.73m2 | [facility] | | SALVADOREAN | FILTRATION | | [facility] | | | RATE,ESTIMATED mL/min | | CENTER - | | | /1.38p6Zjzg than 60 | | LABORATORY | | [...] 8.6 | 8.3 - 10.5 mg/dL | [facility] | | | | | [facility] | | | | | CENTER - | | | | | LABORATORY | + + + + + | BUN/HEAVEN | 11.2 | | [facility] | | | | | [facility] | | | | | CENTER [...] [address] | [place] | [phone] | | [facility] | | [address] | | | - LABORATORY | | | | + + + + + | [facility] | 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
[~2018-01-28 17:38] MED LIST changes: +KRISTALOSE10 GM PO; +LACTULOSE10 GM/151 PO
[2018-01-28] MEDS ORDERED: VALIUM5 MG PO ×2 (20:31→20:32)
[2018-01-28] MEDS ORDERED: MIRALAX17 GM PO (20:32)
[2018-01-28] MEDS ORDERED: IBU600 MG PO (20:32)
== END 2018-01-28 21:07 | disposition home or self-care (01) ==
LOC: ED 17:38
DX: S32.019A Unspecified fracture of first lumbar vertebra, initial encounter for closed fracture (principal); K59.00 Constipation, unspecified; W18.30XA Fall on same level, unspecified, initial encounter; E03.9 Hypothyroidism, unspecified; Z88.5 Allergy status to narcotic agent; Z79.899 Other long term (current) drug therapy
CPT/HCPCS: 72100; 96372; 99283; J1885; J7512

== ENCOUNTER 2018-05-02 12:17 | Emergency (ER) | payer OTHER ==
[~2018-05-02] VITALS: Ht 162.6 cm; Wt 107.0 kg
[~2018-05-02 12:17] MED LIST changes: +ALLEGRA ALLERG180 MG PO; +AMBIEN5 MG PO; +COLACE100 MG PO; +DETROL LA4 MG PO; -FUROSEMIDE40 MG PO; +FUROSEMIDE80 MG PO; +IBU600 MG PO; +IBUPROFEN IB200 MG PO; +LACTULOSE10 GM PO; +MIRALAX119 GM PO; +MIRALAX17 GM PO; +NORCO 5-325 TA1 EACH PO; +OMEPRAZOLE40 MG PO; -PRILOSEC20 MG PO; +QVAR REDIHALE10.6 GM INH; +ROXICODONE15 MG PO; +SPIRONOLACTONE100 MG NG; +SPIRONOLACTONE100 MG PO; -SPIRONOLACTONE50 MG PO; +TOLTERODINE TART4 MG PO; +TUMS200 MG PO; +VALIUM5 MG PO
== END 2018-05-02 19:13 | disposition home or self-care (01) ==
LOC: ED 12:17
PROC: 0T9B70Z Drainage of Bladder with Drainage Device, Via Natural or Artificial Opening (ICD-10-PCS; principal; 2018-05-02)
DX: K76.9 Liver disease, unspecified (principal); R18.8 Other ascites; E03.9 Hypothyroidism, unspecified; Z79.899 Other long term (current) drug therapy
CPT/HCPCS: 49083; 51702; 71045; 74177; 76705; 80053; 81001; 82040; 82140; 82150; 82945; 83615; 84157; 85025; 85610; 85730; 87070; 87075; 87205; 89051; 99285-25; J1170; J2250; Q9967

== ENCOUNTER 2018-05-11 19:26 | Emergency (ER) | payer OTHER ==
[~2018-05-11] VITALS: Ht 162.6 cm; Wt 107.0 kg
--- OUTSIDE RECORDS SUMMARY | 2018-05-11 19:30 | XMS ---
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 - 2 Visits in 30 Days CARE PROVIDERS TRUONG RUBI Internal Medicine: Pulmonary Disease Current KEILY aMrtinez PHONE: Unknown LANA MELCHOR [facility] 03/13/2018-Current PHONE: Unknown TRUONG RUBI Primary Care Current PHONE: Unknown Bianca has no Care Guidelines for this patient. Care History Medical/Surgical 03/14/2018 [facility] - PER PCP OFFICE- PATIENT HAS NOT FOLLOWED UP WITH PCP AFTER DISCHARGE FROM HOSPITAL ON 02/05/18. - PATIENT IS NOT FOLLOWING UP AND OR UTILIZING MENTAL HEALTH SERVICES THROUGH [employer]. 03/13/2018 [facility] \T\middot;\T\nbsp; PATIENT IS A [employer] MEMBER. \T\middot;\T\nbsp; PLEASE REFER PATIENT TO [facility] FOR NON EMERGENT MEDICAL NEEDS. \T\middot;\ T\nbsp; [facility] CAN SEE PATIENTS SAME DAY FOR APTS IF PATIENT CALLS FIRST THING IN THE MORNING. E.D. VISIT COUNT (12 MO.) [address] [facility] [place] [facility] TOTAL 8 NOTE: Visits indicate total known visits. ED/C VISIT TRACKING (12 MO.) 05/11/2018 19:26 [facility] [place] TYPE: Emergency COMPLAINT: - ABD PAIN 05/02/2018 12:18 [facility] [place] TYPE: Emergency COMPLAINT: - ABD PAIN/SOB DIAGNOSES: - Hypothyroidism, unspecified - Shortness of breath - Other director long term care (current) drug therapy - Other ascites - Liver disease, unspecified 03/12/2018 12:01 [facility] [place] TYPE: Emergency COMPLAINT: - ABD PAIN DIAGNOSES: - MCFP (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 analgesic - Unspecified abdominal pain - Other director long term care (current) drug therapy - Allergy status to narcotic agent status - Hypothyroidism, unspecified 02/13/2018 12:56 [facility] [place] TYPE: Emergency COMPLAINT: - PAIN/DISORIENTATED 01/28/2018 17:38 [facility] [place] TYPE: Emergency COMPLAINT: - FALL/BACK PAIN DIAGNOSES: - Unspecified fracture of first lumbar vertebra, initial encounter for closed fracture - Low back pain - Other director long term care (current) drug therapy - Allergy status to narcotic agent status - Constipation, unspecified - Hypothyroidism, unspecified - Fall on same level, unspecified, initial encounter [facility]07[facility]2017 [facility] DIAGNOSES: - Knee Pain - Pain in right knee - Unspecified osteoarthritis, unspecified site - rt knee pain 08/13/2017 16:11 [facility] DIAGNOSES: - Multiple fractures of ribs, left side, initial encounter for closed fracture - Unspecified fall, initial encounter - Chest Pain - fall/ left side pain - Pain, unspecified 07/18/2017 17:25 [facility] TYPE: Emergency COMPLAINT: - HEPATIC ENCEPHALOPATHY INPATIENT VISIT TRACKING (12 MO.) 2018 11:49 [facility] TYPE: Critical Care DIAGNOSES: 28116. Hepatic failure, unspecified without coma 85381. Other specified diseases of intestine 23857. Other specified disorders of bladder 72427. Spondylosis without myelopathy or radiculopathy, cervical region 93891. Autoimmune hepatitis 87363. Hypothyroidism, unspecified 56193. Gastritis, unspecified, without bleeding 72223. Wedge compression fracture of first lumbar vertebra, subsequent encounter for fracture with routine healing 33962. Other disorders of electrolyte and fluid balance, not elsewhere classified 02/14/2018 16:18 [facility] [place] TYPE: Medical Surgical COMPLAINT: - INTRACTABLE BACK PAIN FROM L1 LUMBAR DIAGNOSES: - Hepatic failure, unspecified without coma - Other specified bacterial intestinal infections - Dehydration - Hypothyroidism, unspecified - Adverse effect of benzodiazepines, initial encounter - Gastritis, unspecified, without bleeding - Autoimmune hepatitis - Other osteoporosis with current pathological fracture, vertebra(e), initial encounter for fracture [email or web address]
[2018-05-11] MEDS ORDERED: DICYCLOMINE HCL20 MG PO (21:16)
== END 2018-05-11 21:46 | disposition home or self-care (01) ==
LOC: ED 19:26
PROC: 0T9B70Z Drainage of Bladder with Drainage Device, Via Natural or Artificial Opening (ICD-10-PCS; principal; 2018-05-11)
DX: R10.12 Left upper quadrant pain (principal); E03.9 Hypothyroidism, unspecified; K74.60 Unspecified cirrhosis of liver; Z90.710 Acquired absence of both cervix and uterus; Z79.899 Other long term (current) drug therapy
CPT/HCPCS: 51701; 74177; 80053; 81001; 83690; 85025; 87077; 87088; 87186; 96361; 96374; 96375; 99284-25; J2270; J2405; J7030; Q9967

== ENCOUNTER 2018-05-15 17:36 | Emergency (ER) | payer OTHER ==
[~2018-05-15] VITALS: Ht 162.6 cm; Wt 107.0 kg
[~2018-05-15 17:36] MED LIST changes: +DICYCLOMINE HCL20 MG PO
--- OUTSIDE RECORDS SUMMARY | 2018-05-15 17:40 | XMS ---
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 Care History Medical/Surgical 03/14/2018 [facility] - PER PCP OFFICE- PATIENT HAS NOT FOLLOWED UP WITH PCP AFTER DISCHARGE FROM HOSPITAL ON 02/05/18. - PATIENT IS NOT FOLLOWING UP AND OR UTILIZING MENTAL HEALTH SERVICES THROUGH [employer]. 03/13/2018 [facility] \T\middot;\T\nbsp; PATIENT IS A [employer] MEMBER. \T\middot;\T\nbsp; PLEASE REFER PATIENT TO [facility] FOR NON EMERGENT MEDICAL NEEDS. \T\middot;\ T\nbsp; [facility] CAN SEE PATIENTS SAME DAY FOR APTS IF PATIENT CALLS FIRST THING IN THE MORNING. E.D. VISIT COUNT (12 MO.) 2 [facility] [place] 7 [facility]. TOTAL 9 NOTE: Visits indicate total known visits. ED/UCC VISIT TRACKING (12 MO.) 05/15/2018 17:[address] [facility]arlane[facility] Jones [place] TYPE: Emergency COMPLAINT: - ABD PAIN 05/11/2018 19:[address] [facility] Avard HNader Jones [place] TYPE: Emergency COMPLAINT: - ABD PAIN 05/02/2018 12:[address] [facility] Avard HNader Jones [place] TYPE: Emergency COMPLAINT: - ABD PAIN/SOB DIAGNOSES: - Hypothyroidism, unspecified - Shortness of breath - Other halfway (current) drug therapy - Other ascites - Liver disease, unspecified 03/12/2018 12:[address] [facility] St[facility] Toni Jones [place] TYPE: Emergency COMPLAINT: - ABD PAIN DIAGNOSES: - senior care (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 analgesic - Unspecified abdominal pain - Other halfway (current) drug therapy - Allergy status to narcotic agent status - Hypothyroidism, unspecified 02/13/2018 12:56 [facility] [place] TYPE: Emergency COMPLAINT: - PAIN/DISORIENTATED 01/28/2018 17:38 [facility] [place] TYPE: Emergency COMPLAINT: - FALL/BACK PAIN DIAGNOSES: - Unspecified fracture of first lumbar vertebra, initial encounter for closed fracture - Low back pain - Other halfway (current) drug therapy - Allergy status to narcotic agent status - Constipation, unspecified - Hypothyroidism, unspecified - Fall on same level, unspecified, initial encounter 11/07/2017 [facility] DIAGNOSES: - Knee Pain - Pain in right knee - Unspecified osteoarthritis, unspecified site - rt knee pain 08/13/2017 16:11 [facility] DIAGNOSES: - Multiple fractures of ribs, left side, initial encounter for closed fracture - Unspecified fall, initial encounter - Chest Pain - fall/ left side pain - Pain, unspecified 07/18/2017 17:25 [facility] [place] TYPE: Emergency COMPLAINT: - HEPATIC ENCEPHALOPATHY INPATIENT VISIT TRACKING (12 MO.) 2018 11:49 [facility] TYPE: Critical Care DIAGNOSES: 60115. Hepatic failure, unspecified without coma 95241. Other specified diseases of intestine 77359. Other specified disorders of bladder 77702. Spondylosis without myelopathy or radiculopathy, cervical region 94558. Autoimmune hepatitis 38092. Hypothyroidism, unspecified 10584. Gastritis, unspecified, without bleeding 37819. Wedge compression fracture of first lumbar vertebra, subsequent encounter for fracture with routine healing 82229. Other disorders of electrolyte and fluid balance, not elsewhere classified 02/14/2018 16:[address] [facility] [place] TYPE: Medical Surgical COMPLAINT: - INTRACTABLE BACK PAIN FROM L1 LUMBAR DIAGNOSES: - Hepatic failure, unspecified without coma - Other specified bacterial intestinal infections - Dehydration - Hypothyroidism, unspecified - Adverse effect of benzodiazepines, initial encounter - Gastritis, unspecified, without bleeding - Autoimmune hepatitis - Other osteoporosis with current pathological fracture, vertebra(e), initial encounter for fracture [email or web address]
== END 2018-05-15 21:45 | disposition home or self-care (01) ==
LOC: ED 17:36
PROC: 4A0D7LZ Measurement of Urinary Volume, Via Natural or Artificial Opening (ICD-10-PCS; principal; 2018-05-15)
DX: R10.9 Unspecified abdominal pain (principal); E03.9 Hypothyroidism, unspecified; Z90.710 Acquired absence of both cervix and uterus; Z86.73 Personal history of transient ischemic attack (TIA), and cerebral infarction without residual deficits; Z79.899 Other long term (current) drug therapy
CPT/HCPCS: 51798; 80053; 81001; 82140; 83605; 83690; 85025; 87077; 87088; 87186; 96374; 96375; 96376; 99284-25; J0696; J2270; J2405; J7030

== ENCOUNTER 2018-07-23 09:55 | Emergency (ER) | payer OTHER ==
[~2018-07-23] VITALS: Ht 162.6 cm; Wt 105.7 kg
--- OUTSIDE RECORDS SUMMARY | ~2018-07-23 | XMS | Clinical Summary ---
Demographics + + + | Address | [address] | | | [place] [address] | + + + | Home Phone | | + + + | Preferred Language | Unknown | + + + | Marital Status | | + + + | Pentecostalism Affiliation | Unknown | + + + | Race | Unknown | + + + | Ethnic Group | Unknown | + + + Author + + + | Author | [facility] | | | and Keshawnana | + + + | Organization | [facility] | | | and Keshawnana | + [...] Team Providers + +------+ + | Care Drug Enforcement Agent Name | Role | Phone | + [...] | + + + + + + Current Medications + + +---------+---------+------+------+-------+ | Prescription | Sig. | Disp. | Refills | Star | End | Statu | | | | | | t | Date | s | | | | | | Date | | | + + +---------+---------+------+------+-------+ | fexofenadine | Take 180 mg by mouth | | | 12/30 | | Activ | | (JELANI) 180 mg | Daily as needed. | | | 07/18 | | e | | tablet | | | | 12 | | | + + +---------+---------+------+------+-------+ | spironolactone | Take 100 mg by mouth | | | 12/30 | | Activ | | (ALDACTONE) 100 MG | Daily. | | | 07/18 | | e | | tablet | | | | 12 | | | + + +---------+---------+------+------+-------+ | levothyroxine | Take 100 mcg by | | | 02/1 | | Activ | | (SYNTHROID, | mouth every morning | | | 2/20 | | e | | LEVOTHROID) 100 mcg | (before breakfast). | | | 16 | | | | tablet | | | | | | | + + +---------+---------+------+------+-------+ | omeprazole | Take 40 mg by mouth | | | 02/ | | Activ | | (PRILOSEC) 40 MG | every morning | | | 220 | | e | | capsule | (before breakfast). | | | 16 | | | + + +---------+---------+------+------+-------+ | tolterodine | Take 4 mg by mouth | | | 07/ | | Activ | | (DETROL LA) 4 MG 24 | Daily. | | | 11/17 | | e | | hr capsule | | | | 16 | | | + + +---------+---------+------+------+-------+ | zolpidem (AMBIEN) | Take 5 mg by mouth | | | 07/0 | | Activ | | 5 mg tablet | nightly as needed. | | | 6/20 | | e | | | | | | 16 | | | + + +---------+---------+------+------+-------+ | propranolol | Take 20 mg by mouth | | | | | Activ | | (INDERAL) 20 MG | 2 times daily. | | | | | e | | tablet | Patient states only | | | | | | | | taking one in the | | | | | | | | morning | | | | | | + + +---------+---------+------+------+-------+ | simethicone | Take 160 mg by mouth | | | | | Activ | | (MYLICON) 80 mg | as needed for | | | | | e | | chewable tablet | Flatulence. | | | | | | + + +---------+---------+------+------+-------+ | azaTHIOprine | Take 25 mg by mouth | | | | | Activ | | (IMURAN) 50 mg | Daily. | | | | | e | | tablet | | | | | | | + + +---------+---------+------+------+-------+ | furosemide (LASIX) | | | | 04/2 | | Activ | | 80 mg tablet | | | | 20 | | e | | | | | | 18 | | | + + +---------+---------+------+------+-------+ | albuterol (PROAIR | Inhale 2 puffs into | | | | | Activ | | HFA) 90 mcg/puff | the lungs every 4 | | | | | e | | inhaler | hours as needed for | | | | | | | | Wheezing or | | | | | | | | Shortness of Breath. | | | | | | + + +---------+---------+------+------+-------+ | beclomethasone | Inhale 2 puffs into [...] | | | | | + + +---------+---------+------+------+-------+ | methylPREDNISolone | Follow package | 21 | 0 | 07/1 | | Activ | | (MEDROL DOSEPAK) 4 | directions. | tablet | | 0/20 | | e | | mg tablet | | | | 18 | | | + + +---------+---------+------+------+-------+ | diphenhydrAMINE | Take 1 tablet by [...] | | | | | + + +---------+---------+------+------+-------+ Active Problems + + + | Problem [...] on file | | + + + Last Filed Vital Signs + [...] | + + + + + | BREAST CANCER | | | | | SCREENING (MAMM Q2 | 4 | | | | YEARS 50-) | | | | + + + [...] | | 03/01/2017, 02/05/2016, | | | (#1) | 8 | 02/09/2015, Additional history | | | | | exists | | + + + + + | Vaccine: | Completed | 12/20/2005 | | | Pneumococcal 19-64 | | | | | (PPSV23 only) Medium | | | | | Risk | | | | + + + + + Results Not on filefrom Last 3 Months Insurance + +--------+ +--------+-------+---------+ | Payer | Benefi | Subscriber | Type | Phone | Address | | | t Plan | ID | | | | | | / | | | | | | | Group | | | | | + +--------+ +--------+-------+---------+ | [facility] | IHS | [id number] | Indemn | | | | SERVICE | YELLOW | | ity | | | | | [place] | | | | | + +--------+ +--------+-------+---------+ + +--------+ +--------+ + + | Guarantor Name | Accoun | Relation to | Date | Phone | Billing Address | | | t Type | Patient | of | | | | | | | | | | + +--------+ +--------+ + + | ALINE WHITLEY | Person | Self | [birth year] | 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
--- OUTSIDE RECORDS SUMMARY | ~2018-07-23 | XMS | Clinical Summary ---
Demographics + + + | Address | [address] | | | [place] [address] | + + + | Home Phone | | + + + | Preferred Language | Unknown | + + + | Marital Status | | + + + | Anabaptist Affiliation | Unknown | + + + | Race | Unknown | + + + | Ethnic Group | Unknown | + + + Author + + + | Author | [facility] | | | and Keshawnana | + + + | Organization | [facility] | [...] Team Providers + +------+ + | Care Private Duty Rn Name | Role | Phone | + [...] | | | + +--------+ +--------+-------+---------+ | [facility] | IHS | [id number] | Indemn | | | | SERVICE [...] | Self | [birth year] | Work: | [address] | | | al/Fam | | 1954 | +- | [place] [place] | | | [place]atha | | | [phone]: | [phone] | | | | | | | | | | | | | +- | | | | | | | [phone] | | + +--------+ +--------+ + +
--- OUTSIDE RECORDS SUMMARY | 2018-07-23 09:58 | XMS ---
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 - Has Care Guidelines CARE PROVIDERS TRUONG RUBI Internal Medicine: Pulmonary Disease Current KEILY Martinez PHONE: Unknown LANA MELCHOR [facility] 03/13/2018-Current PHONE: Unknown TRUONG RUBI Primary Care Current PHONE: Unknown Bianca has no Care Guidelines for this patient. Care History Medical/Surgical 05/17/2018 [facility] THEY HAVE BEEN DISCUSSING PATIENT CARE WITH PCP. 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 - PATIENT PCP IS AWARE OF PATIENT CURRENT MEDICAL CONDITIONS. 03/14/2018 [facility] - PER PCP OFFICE- PATIENT HAS NOT FOLLOWED UP WITH PCP AFTER DISCHARGE FROM HOSPITAL ON 02/05/18. - PATIENT IS NOT FOLLOWING UP AND OR UTILIZING MENTAL HEALTH SERVICES THROUGH [employer]. 03/13/2018 [facility] \T\middot;\T\nbsp; PATIENT IS A [facility] MEMBER. \T\middot;\T\nbsp; PLEASE REFER PATIENT TO [facility] FOR NON EMERGENT MEDICAL NEEDS. \T\middot;\ T\nbsp; [facility] CAN SEE PATIENTS SAME DAY FOR APTS IF PATIENT CALLS FIRST THING IN THE MORNING. [facility].D. [facility]12 MO.) [facility] TOTAL 9 NOTE: Visits indicate total known visits. ED/UCC VISIT TRACKING (12 MO.) 07/23/2018 09:56 [facility] [place] TYPE: Emergency COMPLAINT: - ABD PAIN 05/15/2018 17:37 [facility] [place] TYPE: Emergency COMPLAINT: - ABD PAIN DIAGNOSES: - Other hat liner (current) drug therapy - Hypothyroidism, unspecified - Personal history of transient ischemic attack (TIA), and cerebral infarction without residual deficits - Unspecified abdominal pain - Acquired absence of both cervix and uterus 05/11/2018 19:26 [facility] [place] TYPE: Emergency COMPLAINT: - ABD PAIN DIAGNOSES: - Other hat liner (current) drug therapy - Acquired absence of both cervix and uterus - Left upper quadrant pain - Hypothyroidism, unspecified - Unspecified cirrhosis of liver 05/02/2018 12:18 [facility] [place] TYPE: Emergency COMPLAINT: - ABD PAIN/SOB DIAGNOSES: - Hypothyroidism, unspecified - Shortness of breath - Other custodial (current) drug therapy - Other ascites - Liver disease, unspecified 03/12/2018 12:01 [facility] [place] TYPE: Emergency COMPLAINT: - ABD PAIN DIAGNOSES: - laundry folder (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 analgesic - Unspecified abdominal pain - Other custodial (current) drug therapy - Allergy status to narcotic agent status - Hypothyroidism, unspecified 02/13/2018 12:56 [facility] [place] TYPE: Emergency COMPLAINT: - PAIN/DISORIENTATED 01/28/2018 17:38 [facility] [place] TYPE: Emergency COMPLAINT: - FALL/BACK PAIN DIAGNOSES: - Unspecified fracture of first lumbar vertebra, initial encounter for closed fracture - Low back pain - Other custodial (current) drug therapy - Allergy status to narcotic agent status - Constipation, unspecified - Hypothyroidism, unspecified - Fall on same level, unspecified, initial encounter 11/07/2017 15:07 [facility] DIAGNOSES: - Knee Pain - Pain in right knee - Unspecified osteoarthritis, unspecified site - rt knee pain 08/13/2017 16:11 [facility] DIAGNOSES: - Multiple fractures of ribs, left side, initial encounter for closed fracture - Unspecified fall, initial encounter - Chest Pain - fall/ left side pain - Pain, unspecified INPATIENT VISIT TRACKING (12 MO.) 2018 11:49 [facility] TYPE: Critical Care DIAGNOSES: 72264. Hepatic failure, unspecified without coma 23082. Other specified diseases of intestine 46158. Other specified disorders of bladder 97428. Spondylosis without myelopathy or radiculopathy, cervical region 28921. Autoimmune hepatitis 72191. Hypothyroidism, unspecified 70043. Gastritis, unspecified, without bleeding 33499. Wedge compression fracture of first lumbar vertebra, subsequent encounter for fracture with routine healing . Other disorders of electrolyte and fluid balance, [...] pathological fracture, vertebra(e), initial encounter for fracture [email or web address]
== END 2018-07-23 14:35 | disposition home or self-care (01) ==
LOC: ED 09:55
DX: K74.60 Unspecified cirrhosis of liver (principal); E03.9 Hypothyroidism, unspecified; Z90.710 Acquired absence of both cervix and uterus; Z90.49 Acquired absence of other specified parts of digestive tract; Z79.899 Other long term (current) drug therapy
CPT/HCPCS: 49083; 80053; 81001; 82945; 83690; 84157; 85025; 89051; 96374; 99284-25; J2270

== ENCOUNTER 2018-08-18 22:03 | Observation (INO) | payer OTHER ==
[~2018-08-18] VITALS: Ht 162.6 cm; Wt 97.1 kg
--- OUTSIDE RECORDS SUMMARY | ~2018-08-18 | XMS | Clinical Summary ---
Demographics + + + | Address | [address] | | | [place] [address] | + + + | Home Phone | | + + + | Preferred Language | Unknown | + + + | Marital Status | | + + + | Mu-Ism Affiliation | Unknown | + + + | Race | Unknown | + + + | Ethnic Group | Unknown | + + + Author + + + | Author | [facility] | | | and Keshawnana | + + + | Organization | [facility] | | | and Keshawnana [...] Team Providers + +------+ + | Care Roll Filler Name | Role | Phone | + +------+ + | Morgan Conner DO | PP | | + +------+ + Allergies + + + + + + | Active Allergy | Reactions | Severity | Noted | Comments | | | | | Date | | + + + + + + | Hydrocodone | Itching | Medium | 12/20/19 | | | | | | 17 | | + + + + + + | Oxycodone | Itching, Rash | Medium | 12/08/19 | insomnia | | | | | 15 | | + + + + + + Medications + + + +---------+------+------+-------+ | Medication | Sig | Dispensed | Refills | Star | End | Statu | | | | | | t | Date | s | | | | | | Date | | | + + + +---------+------+------+-------+ | fexofenadine | Take 180 mg by mouth | | 0 | 12/30 | | Activ | | (JELANI) 180 mg | Daily as needed. | | | 07/18 | | e | | tablet | | | | 12 | | | + + + +---------+------+------+-------+ | spironolactone | Take 100 mg by mouth | | 0 | 12/30 | | Activ | | (ALDACTONE) 100 MG | Daily. | | | 07/18 | | e | | tablet | [...] 80 mg tablet | | | | 20 | | e | | | | [...] the lungs Daily. | Inhaler | | /20 | | e | | inhalerIndications: | [...] Noted Date | + + + | Mild persistent asthma without complication | 10/19/2017 | + + + | Carpal tunnel syndrome on right | 10/14/2015 | + + + | ANOSMIA | 06/01/2011 | + + + Resolved Problems + [...] | 7 | + + + + Immunizations + + + + | Name | Dates Previously Given | Next Due | + + + [...] + | Respiratory Rate | 16 | 11/07/20171907 PDT | + + + + | Oxygen Saturation | 98% | 11/07/20172056 PDT | + + + + | Inhaled Oxygen | - | - | | Concentration | | | + + + + | Weight | 120.2 kg (264 lb | 01/18/20181053 PDT | | | 15.9 oz) | | + + + + | Height | 165.1 cm (5' 5") | 01/18/20181053 PDT | + + + + | Body Mass Index | 44.1 | 01/18/20181053 PDT | + + + + Plan of Treatment + + + + + | Health Maintenance | Due Date | Last Done | Comments | + + + + + | Hepatitis C | | | | | Screening | 4 | | | + + + + + | Vaccine: | | | | | Dtap/Tdap/Td (1 - | 3 | | | | Tdap) | | | | + + + + + | Breast Cancer | | | | | Screening (Ages | 4 | | | | 50-74) | | | | + + + + + | Colorectal Cancer | | | | | Screening | 4 | | | | (Colonoscopy) | | | | + + + + + | Vaccine: Zoster (1 | | | | | of 2) | 4 | | | + + + + + | Vaccine: Influenza | | 03/01/2017, 02/05/2016, | | | (Season Ended) | 9 | 02/09/2015, Additional history | | | | | exists | | + + + + + | Vaccine: | Completed | 12/20/2005 | | | Pneumococcal 19-64 | | | | | (PPSV23 only) Medium | | | | | Risk | | | | + + + + + Results Not on filefrom Last 3 Months Insurance + +--------+ +--------+-------+---------+--------+ | Payer | Benefi | Subscriber | Effect | Phone | Address | Type | | | t Plan | ID | wse | | | | | | / | | Dates | | | | | | Group | | | | | | + +--------+ +--------+-------+---------+--------+ | [facility] | IHS | [id number] | 12/07/19 | | | Indemn | | SERVICE | YELLOW | | 15-Pre | | | ity | | | [place] | | sent | | | | + +--------+ +--------+-------+---------+--------+ + +--------+ +--------+ + + | Guarantor Name | Accoun | Relation to | Date | Phone | Billing Address | | | t Type | Patient | of | | | | | | | | | | + +--------+ +--------+ + + | Aline Whitley | Person | Self [birth year] | [address] | | | al/Fam | | 1955 | [phone] | [address] [place] | | | [place] | | | 1 (Home) | [phone] | | | | | | [phone] | | | | | | | 3 (Work) | | + +--------+ +--------+ + + Advance Directives Patient has advance care planning documents, and code status on file. For more information, please contact:[facility] and [place], [place] [address] + + + + + | Code Status | Date | Date | Comments | | | Activated | Inactivated | | + + + + + | Full Code | 10/14/2015 | 10/14/2015 | | | | 8:57 | 12:24 | | + + + + +
--- OUTSIDE RECORDS SUMMARY | ~2018-08-18 | XMS | Clinical Summary ---
Demographics + + + | Address | [address] | | | [place] [address] | + + + | Home Phone [...] + + | Author | [facility] | | | and Keshawnana | + + + | Organization | [facility] | | [...] Providers + +------+ + | Care Research Librarian Name | Role | Phone | + [...] | | | + +--------+ +--------+-------+---------+--------+ | [facility] | IHS | [id number] | 12/07/19 | | | Indemn | [...] Person | Self | [birth year] | | [address] | | | al/Fam | | 1955 | [phone] | [address] [place] | | | [place] | | | 1 (Home) | [phone] | | | | | | [phone] | | | | | | | 3 (Work) | | + +--------+ +--------+ + + Advance Directives Patient has advance care planning documents, and code status on file. For more information, please contact:[facility] and [place], [place] [address] + + + + + | Code Status | Date | Date | Comments | | | Activated | Inactivated | | + + + + + | Full Code | 10/14/2015 | 10/14/2015 | | | | 8:57 | 12:24 | | + + + + +
--- OUTSIDE RECORDS SUMMARY | 2018-08-18 22:06 | XMS ---
PreManage Notification: LESLYE MAGANA Security Sql Report Developer Events No recent Security Events currently on file CRITERIA MET - 6 ED Visits in 6 Months - [facility] - Has Care Guidelines - [facility] - 2 Visits in 30 Days CARE PROVIDERS TRUONG RUBI Internal Medicine: Pulmonary Disease Current PHONE: Unknown LANA MELCHOR [facility] 03/13/2018-Current PHONE: Unknown TRUONG RUBI Primary Care Current PHONE: Unknown Bianca has no Care Guidelines for this patient. Care History Medical/Surgical 05/17/2018 [facility] - [facility] THEY HAVE BEEN DISCUSSING PATIENT CARE WITH PCP. 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 - PATIENT PCP IS AWARE OF PATIENT CURRENT MEDICAL CONDITIONS. 03/14/2018 [facility] - PER PCP OFFICE- PATIENT HAS NOT FOLLOWED UP WITH PCP AFTER DISCHARGE FROM HOSPITAL ON 02/05/18. - PATIENT IS NOT FOLLOWING UP AND OR UTILIZING MENTAL HEALTH SERVICES THROUGH [employer]. 03/13/2018 [facility] \T\middot;\T\nbsp; PATIENT IS A [employer] MEMBER. \T\middot;\T\nbsp; PLEASE REFER PATIENT TO [facility] FOR NON EMERGENT MEDICAL NEEDS. \T\middot;\ T\nbsp; [facility] CAN SEE PATIENTS SAME DAY FOR APTS IF PATIENT CALLS FIRST THING IN THE MORNING. ECesar. VISIT COUNT (12 MO.) [address] [place] [facility] [facility] 8 [facility]. TOTAL 9 NOTE: Visits indicate total known visits. ED/UCC VISIT TRACKING (12 MO.) 08/18/2018 22:04 [facility] [place] TYPE: Emergency COMPLAINT: - NAUSEA/TREMORS/DIARRHEA 07/23/2018 09:56 [facility] [place] TYPE: Emergency COMPLAINT: - ABD PAIN DIAGNOSES: - Other fpc (current) drug therapy - Periumbilical pain - Acquired absence of other specified parts of digestive tract - Hypothyroidism, unspecified - Unspecified cirrhosis of liver - Acquired absence of both cervix and uterus 05/15/2018 17:37 [facility] [place] TYPE: Emergency COMPLAINT: - ABD PAIN DIAGNOSES: - Other fpc (current) drug therapy - Hypothyroidism, unspecified - Personal history of transient ischemic attack (TIA), and cerebral infarction without residual deficits - Unspecified abdominal pain - Acquired absence of both cervix and uterus 05/11/2018 19:26 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 Hepatic failure, unspecified without coma 39235. Other specified diseases of intestine 36471. Other specified disorders of bladder 21839. Spondylosis without myelopathy or radiculopathy, cervical region 26892. Autoimmune hepatitis 69935. Hypothyroidism, unspecified 04096. Gastritis, unspecified, without bleeding 38159. Wedge compression fracture of first lumbar vertebra, subsequent encounter for fracture with routine healing 17299. Other disorders of electrolyte and fluid balance, [...] pathological fracture, vertebra(e), initial encounter for fracture [email or web address]
--- NOTE | 2018-08-19 00:30 | NUR ---
Patient arrived to unit via stretcher, able to stand and pivot with 1PA to bed, reports dizziness with ambulation. Alert and oriented x4, follows commands apprropriately. Lungs are clear, on room air. In sinus rhythm, rate well controlled, BP WNL. Ascites noted, patient also reports feeling mild nausea, denies abdominal discomfort. Bowel tones active x4. Skin grossly intact. IV site flushing well, LR at 150 cc/hr started per order. Denies needs at this time. Call light within reach.
--- NOTE | 2018-08-19 01:55 | NUR ---
Notified Dr. Wilkinson that patient had manual BP of 88/52 after fluids in ED. Received order for 5mg PO midodrine to be given x1, if systolic BP remains <90 mmHg, give another x1 dose of 5mg PO midodrine. Also notified Dr. Wilkinson that patient has been restless and asking the same question several times, aware that she is in hospital but is picking at tbues and lines. Received order for 30mg PO lactulose Q2H for three doses.
--- NOTE | 2018-08-19 02:00 | NUR ---
Assisted patient to [facility], 1PA, gait weak but steady. Now resting in bed again, denies further needs. Call light within reach, bed alarm on.
--- NOTE | 2018-08-19 02:30 | NUR ---
Transfered patient to room 128 for closer observation by nursing staff.
--- NOTE | 2018-08-19 03:16 | NUR ---
Patient up to BS, 1PA, gait is steady, no report of dizziness. Now resting in bed again, denies further needs. IVF infusing per order. Call light within reach, bed alarm on.
--- NOTE | 2018-08-19 04:30 | NUR ---
Assessment done, patient alert to place and situation, disoriented to following commands earlier in shift (around 0200) and repeats questions frequently. Vitals WNL, denies needs at this time. Call light within reach, IVF infusing, bed alarm on.
--- NOTE | 2018-08-19 06:18 | NUR ---
Assisted patient to [facility], 1PA, strength improved and gait steady. Now resting in bed again, denies further needs. Call light within reach, bed alarm on.
--- NOTE | 2018-08-19 06:48 | NUR ---
Updated Dr. Wilkinson that patient's systolic BP <90 again this am. X1 dose of 5mg PO midodrine to be given, also give last dose of lactulose.
--- NOTE | 2018-08-19 08:31 | NUR ---
PATIENT SITTING IN BED, ALERT AND ORIENTED. IV FLUIDS CONTINUE AT THIS TIME. MANUAL BLOOD PRESSURE OF 104/68 AND AUTOMATED BLOOD PRESSURE OF 102/54. PATIENT VOIDS LARGE LIQUID BOWEL MOVEMENT WITH URINE. PATIENT STEADY ON FEET, AMBULATES TO BEDSIDE COMMODE WITH ONE PERSON ASSIST. PATIENT STATES SHE "ONLY EATS ONE MEAL A DAY, USUALLY AT 7AM." PATIENT EDUCATED ON IMPORTANCE OF EATING SMALL, FREQUENT MEALS THROUGHOUT THE DAY WITH PROTEIN. PATIENT ORDERED BREAKFAST AT THIS TIME. PATIENT REQUESTED WARM BLANKETS AND STATES "I'M ALWAYS COLD." WARM BLANKETS PROVIDED AND PATIENT DENIES ANY FURTHER NEEDS AT THIS TIME. CALL LIGHT WITHIN REACH.
[2018-08-19] MEDS ORDERED: PROPRANOLOL HCL20 MG PO (09:13)
--- NOTE | 2018-08-19 09:37 | NUR ---
DR. JACOBSON IN ROOM ASSESSING PATIENT. PATIENTS [place] IN ROOM.
--- NOTE | 2018-08-19 10:44 | NUR ---
PATIENT SITTING IN BED WATCHING TV. DAUGHTER AND GRANDSON IN ROOM WITH PATIENT. PATIENT GIVEN MEDS AND HAD LOTS OF QUESTIONS REGARDING MED ADMINISTRATION. EDUCATED BEST POSSIBLE. ATTEMPTED TO EDUCATE FAMILY ON SIGNS PATIENT MAY EXHIBIT WITH HIGH AMMONIA LEVELS AND WHEN TO BRING HER TO HOSPITAL. FAMILY SEEMS UNINTERESTED IN EDUCATION.
--- NOTE | 2018-08-19 11:22 | NUR ---
PATIENT AMBULATED TO BATHROOM WITH TWO PERSON STANDBY ASSIST. STATES SHE USES A WALKER AT HOME WHEN AMBULATING. PATIENT AMBULATES BACK TO BED. LUNCH ORDER PLACED. ASSESSMENT UNDERWAY.
--- NOTE | 2018-08-19 12:16 | NUR ---
PATIENT SITTING UP AT BEDSIDE EDGE EATING LUNCH. LR CONTINUES TO RUN AT 100 MLS/HR. PATIENT DENIES ANY FURTHER NEEDS AT THIS TIME. CALL LIGHT WITHIN REACH.
--- NOTE | 2018-08-19 14:08 | NUR ---
PATIENT HAS BEEN SLEEPING ON LEFT SIDE SINCE SHE FINISHED HER LUNCH. BP AT THIS TIME 88/62 MANUALLY ON LEFT ARM. PT ASKING FOR "SOMETHING SWEET" AND ORDERED A PIECE OF CARROT CAKE FOR PATIENT AT THIS TIME PER HER REQUEST. PT AWAKENS EASILY, BUT DOES SAY SHE DOESN'T FEEL GOOD NOW SHE DID EARLIER. PT ALSO TELLS THIS RN THAT SHE HARDLY REMEMBER DR. JACOBSON VISITING WITH HER THIS AM, BUT SHE IS ABLE TO TELL ME WHICH FAMILY MEMBERS WERE HERE TO VISIT HER. CONTINUE TO MONITOR BLOOD PRESSURES CLOSELY. IVF CONTINUE AT 100 ML/HR.
--- NOTE | 2018-08-19 14:24 | NUR ---
DR. JACOBSON CALLED AND UPDATED ON PT'S BLOOD PRESSURES. NEW ORDERS TO BE PLACED. PT TO BE RESTARTED ON MIDODRINE AND ALSO BACK ON LACTULOSE THIS EVENING WITH DINNER. PT REMAINS IN BED, RESTING.
--- NOTE | 2018-08-19 15:10 | NUR ---
PATIENT GIVEN IV MAG, PO POTASSIUM, AND MIDODRINE AT THIS TIME. PT STRUGGLES WITH PILLS AT TIMES, AND PREFERS TO TAKE ONE PILL AT A TIME. PT STATES SHE "GETS A BUBBLE" AND THIS EVEN HAPPENS SOMETIMES WHEN SHE IS EATING FOOD. PT ENCOURAGED TO SIT UP IN BED TO TAKE PILLS, BUT SHE REMAINS SEMI RECLINED IN BED. PT WATCHING TV AND RELAXING. CONTINUE TO MONITOR.
--- NOTE | 2018-08-19 16:43 | NUR ---
PATIENT SITTING IN CHAIR WATCHING TV. NEW BAG OF LR INFUSING AT 100 MLS/HR. ASSESSMENT COMPLETE. PATIENT DENIES ANY FURTHER NEED AT THIS TIME. CALL LIGHT WITHIN REACH.
--- NOTE | 2018-08-19 18:08 | NUR ---
PATIENT SITTING IN CHAIR WITH TWO DAUGHTERS AND GRANDSON VISITING. PATIENT STATED SHE THOUGHT SHE HAD BEEN IN THE HOSPITAL FOR 2.5 DAYS AND WAS REORIENTED. MAG AND LR INFUSING CURRENTLY. PATIENT FINISHED DINNER AND DENIES ANY FURTHER NEED AT THIS TIME. CALL LIGHT WITHIN REACH.
--- NOTE | 2018-08-19 19:50 | NUR ---
Patient sitting up in bed watching tv and visiting with family. Denies needs at this time, is anxious for discharge. Educated patient about purpose of the medications and the labs/vitals that are being monitored while in hospital. Patient states that she understands and is appreciative of education. Denies further needs at this time. Call light within reach.
--- NOTE | 2018-08-19 20:20 | NUR ---
Patient resting with eyes closed. Eyes open spontaneously, alert and oriented x4. BP 90/50 with manual pressure, peripheral pulses well felt in all extremities, capillary refill brisk, no edema noted, HR between 55 to 70, sinus rhythm with PVCs. Lungs are clear throughout all savage, remains on room air, breathing is even and unlabored. Abdomen is non-tender, non-distended, bowel tones active, denies nausea. IV site intact, IVF infusing per order. Patient denies needs at this time, call light within reach.
--- NOTE | 2018-08-19 22:00 | NUR ---
Assisted patient to bathroom, 1PA with walker, gait steady, denies feeling dizzy or light-headed with ambulation. Now resting in bed again, denies further needs. Call light within reach, IVF infusing per order.
--- NOTE | 2018-08-19 22:53 | NUR ---
Updated Dr. Wilkinson about patient's low urine output and Bp of 92/35 (47), notified him that manual BP was 98/50, has had multiple loose stools today. No new orders at this time, keep patient's IVF at 100 cc/hr.
--- NOTE | 2018-08-20 00:20 | NUR ---
Assessment done, no acute changes from previous, restful, denies needs at this time. Call light within reach, IVF infusing per order.
--- NOTE | 2018-08-20 02:30 | NUR ---
Updated Dr. Wilkinson that patient had 86/50 manual BP and continued oliguria. No new orders at this time. Patient remains alert and oriented, denies needs at this time. Call light within reach.
--- NOTE | 2018-08-20 04:00 | NUR ---
Patient restful with eyes closed, breathing is even and unlabored. Call light within reach.
--- NOTE | 2018-08-20 05:13 | NUR ---
Patient remains restful, denies needs at this time. Assessment done, no acute changes from previous. Denies nausea, denies pain. Manual BP 88/46, all other vitals WNL. Call light within reach, IVF infusing per orde.
--- NOTE | 2018-08-20 06:28 | NUR ---
Assisted to bathroom with 1PA/FWW, patient voided 225 mL urine. Once in bed, bladder scan done, post-void esidual volume was 215 mL. Patient denies further needs at this time. Call light within reach, IVF infusing per order.
--- NOTE | 2018-08-20 07:46 | NUR ---
PATIENT AMBULATED TO BEDSIDE CHAIR TO EAT BREAKFAST. LR INFUSING AT 100 MLS/HR. ASSESSMENT COMPLETE. PATIENT DENIES ANY FURTHER NEEDS AT THIS TIME, CALL LIGHT WITHIN REACH.
--- NOTE | 2018-08-20 08:14 | NUR ---
PATIENTS [place] IN ROOM VISITING. AM MEDICATIONS GIVEN. MANUAL BLOOD PRESSURE OF 98/68, WILL CONTINUE TO MONITOR. [place]ERETT EDUCATED ON SIGNS OF HIGH AMMONIA LEVELS AND WHEN TO BRING PATIENT TO HOSPITAL IF HE NOTICES THESE SYMPTOMS. [place] SEEMED RECEPTIVE TO INFORMATION. PATIENT DENIES ANY FURTHER NEED AT THIS TIME. CALL LIGHT WITHIN REACH.
--- NOTE | 2018-08-20 09:34 | NUR ---
PATIENT SITTING IN CHAIR WATCHING TV WITH AND DAUGHTER. MANUAL BLOOD PRESSURE OF 100/52. LR CONTINUES INFUSING AT 100 MLS/HR. PATIENT DENIES ANY FURTHER NEED AT THIS TIME, CALL LIGHT WITHIN REACH.
[2018-08-20] MEDS ORDERED: OXYCODONE HCL5 MG PO (09:59)
[2018-08-20] MEDS ORDERED: XIFAXAN550 MG PO (10:19)
[2018-08-20] MEDS ORDERED: SPIRONOLACTONE100 MG PO (10:24)
[2018-08-20] MEDS ORDERED: MIDODRINE HCL10 MG PO (10:24)
[2018-08-20] MEDS ORDERED: LACTULOSE10 GM PO (10:25)
--- NOTE | 2018-08-20 12:11 | NUR ---
DISCHARGE INSTRUCTIONS GONE OVER WITH PATIENT AND HER DAUGHTER. PT HAD A CHANCE TO ASK QUESTIONS REGARDING MEDS AND INSTRUCTIONS. ALL BELONGINGS TAKEN WITH PATIENT. PT GIVEN W/C RIDE OUT TO FRONT.
== END 2018-08-20 12:00 | disposition home or self-care (01) ==
LOC: ED 22:03 → CCU 22:05
PROVIDERS: ADMIT Internal Medicine
DX: K72.10 Chronic hepatic failure without coma (principal); E86.0 Dehydration; T50.1X5A Adverse effect of loop [high-ceiling] diuretics, initial encounter; E03.9 Hypothyroidism, unspecified; K21.9 Gastro-esophageal reflux disease without esophagitis; K75.4 Autoimmune hepatitis; K74.60 Unspecified cirrhosis of liver; R18.8 Other ascites; R10.9 Unspecified abdominal pain; R11.0 Nausea; I95.89 Other hypotension; Z79.899 Other long term (current) drug therapy
CPT/HCPCS: 36415; 80053; 81001; 82140; 83735; 85025; 96361; 96365; 96366; 96374; 96375; 99284-25; G0378; J2405; J2550; J3475; J7030; J7120; P9047

== ENCOUNTER 2018-10-13 20:26 | Emergency (ER) | payer OTHER ==
[~2018-10-13] VITALS: Ht 162.6 cm; Wt 94.3 kg
[~2018-10-13 20:26] MED LIST changes: +MIDODRINE HCL10 MG PO; +OXYCODONE HCL5 MG PO; +XIFAXAN550 MG PO
--- OUTSIDE RECORDS SUMMARY | 2018-10-13 20:28 | XMS ---
PreManage Notification: LESLYE MAGANA Security Triage Nurse Events No recent Security Events currently on file CRITERIA MET - 6 ED Visits in 6 Months - [facility] - Has Care [facility] - [facility] CARE PROVIDERS TRUONG RUBI Internal Medicine: Pulmonary Disease Current PHONE: Unknown LANA MELCHOR [facility] 03/13/2018-Current PHONE: Unknown TRUONG RUBI Primary Care Current PHONE: Unknown Bianca has no Care Guidelines for this patient. Care History Medical/Surgical 05/17/2018 [facility] - CHW CONTACTED WENDY AT [facility] LEANDRA MONTE- THEY HAVE BEEN DISCUSSING PATIENT CARE WITH PCP. - PATIENT DOES HAVE A ALARM OPERATOR WHO IS BEING SEEN OUTSIDE OF THE [facility] NETWORK. - PATIENT PCP IS AWARE OF PATIENT CURRENT MEDICAL CONDITIONS. 03/14/2018 [facility] - PER PCP OFFICE- PATIENT HAS NOT FOLLOWED UP WITH PCP AFTER DISCHARGE FROM HOSPITAL ON 02/05/18. - PATIENT IS NOT FOLLOWING UP AND OR UTILIZING MENTAL HEALTH SERVICES THROUGH [facility]. 03/13/2018 [facility] \T\middot;\T\nbsp; PATIENT IS A [facility] MEMBER. \T\middot;\T\nbsp; PLEASE REFER PATIENT TO [facility] FOR NON EMERGENT MEDICAL NEEDS. \T\middot;\ T\nbsp; [facility] CAN SEE PATIENTS SAME DAY FOR APTS IF PATIENT CALLS FIRST THING IN THE MORNING. [facility] MO.) [facility] TOTAL 10 NOTE: Visits indicate total known visits. ED/UCC VISIT TRACKING (12 MO.) 10/13/2018 20:27 [facility] [place] TYPE: Emergency COMPLAINT: - ABDOMINAL PAIN 08/18/2018 22:04 [facility] [facility] [place] TYPE: Emergency COMPLAINT: - NAUSEA/TREMORS/DIARRHEA 07/23/2018 09:[address] [facility] [place] TYPE: Emergency COMPLAINT: - ABD PAIN DIAGNOSES: - Other probate clerk (current) drug therapy - Periumbilical pain - Acquired absence of other specified parts of digestive tract - Hypothyroidism, unspecified - Unspecified cirrhosis of liver - Acquired absence of both cervix and uterus 05/15/2018 17:37 ADELITA [place] [facility] [place] TYPE: Emergency COMPLAINT: - ABD PAIN DIAGNOSES: - [place] [facility] [place] drug therapy - Hypothyroidism, unspecified - Personal history of transient ischemic attack (TIA), and cerebral infarction without residual deficits - Unspecified abdominal pain - Acquired absence of both cervix and uterus 05/11/2018 19:[address] [facility] [place] TYPE: Emergency COMPLAINT: - ABD PAIN DIAGNOSES: - Other [place] [facility] [place] (current) drug therapy - Acquired absence of both cervix and uterus - Left upper quadrant pain - Hypothyroidism, unspecified - Unspecified cirrhosis of liver 05/02/2018 12:18 [facility] [place] TYPE: Emergency COMPLAINT: - ABD PAIN/SOB DIAGNOSES: - Hypothyroidism, unspecified - Shortness of breath - Other probate clerk (current) drug therapy - Other ascites - Liver disease, unspecified 03/12/2018 12:[address] [facility] [place] TYPE: Emergency COMPLAINT: - ABD PAIN DIAGNOSES: - senior living (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 analgesic - Unspecified abdominal pain - Other [place] [facility] [place]current[place] drug therapy - Allergy status to narcotic agent status - Hypothyroidism, unspecified 02/13/2018 12:56 ADELITA Bailey TYPE: Emergency COMPLAINT: - PAIN/DISORIENTATED 01/28/2018 17:38 ADELITA Bailey TYPE: Emergency COMPLAINT: - FALL/BACK PAIN DIAGNOSES: - Unspecified fracture of first lumbar vertebra, initial encounter for closed fracture - Low back pain - Other [place] [facility] (current) drug therapy - Allergy status to narcotic agent status - Constipation, unspecified - Hypothyroidism, unspecified - Fall on same level, unspecified, initial encounter 11/07/2017 15:07 [facility] Onur MONTANO TYPE: Emergency DIAGNOSES: - Knee Pain - Pain in right knee - Unspecified osteoarthritis, unspecified site - rt knee pain INPATIENT VISIT TRACKING (12 MO.) 08/18/2018 22:05 ADEL[facility] [place] TYPE: Observation COMPLAINT: - HYPOTENSION DIAGNOSES: - Unspecified abdominal pain - Adverse effect of loop [high-ceiling] diuretics, initial encounter - Other ascites - Gastro-esophageal reflux disease without esophagitis - Hypothyroidism, unspecified - Unspecified cirrhosis of liver - Other probate clerk (current) drug therapy - Autoimmune hepatitis - Nausea - Other hypotension - Dehydration - Altered mental status, unspecified - Chronic hepatic failure without coma 2018 11:49 [facility] TYPE: Critical Care DIAGNOSES: 47858. Hepatic failure, unspecified without coma 15547. Other specified diseases of intestine 48237. Other specified disorders of bladder 60480. Spondylosis without myelopathy or radiculopathy, cervical region 65798. Autoimmune hepatitis 79053. Hypothyroidism, unspecified 69255. Gastritis, unspecified, without bleeding 72383. Wedge compression fracture of first lumbar vertebra, subsequent encounter for fracture with routine healing 00833. Other disorders of electrolyte and fluid balance, [...] pathological fracture, vertebra(e), initial encounter for fracture [email or web address]
== END 2018-10-14 00:25 | disposition home or self-care (01) ==
LOC: ED 20:26
DX: K74.60 Unspecified cirrhosis of liver (principal); R18.8 Other ascites; Z79.899 Other long term (current) drug therapy
CPT/HCPCS: 71045; 80053; 81001; 82140; 85025; 96374; 99284-25; J2270

== ENCOUNTER 2018-12-30 13:12 | Emergency (ER) | payer OTHER ==
[~2018-12-30] VITALS: Ht 165.1 cm; Wt 91.6 kg
[~2018-12-30 13:12] MED LIST changes: +HYDROXYZINE HCL25 MG PO
--- OUTSIDE RECORDS SUMMARY | 2018-12-30 13:14 | XMS ---
PreManage Notification: LESLYE MAGANA Security Head Screen Worker Events No recent Security Events currently on file CRITERIA MET - 6 ED Visits in 6 Months - [facility] CARE PROVIDERS TRUONG RUBI Internal Medicine: Pulmonary Disease Current PHONE: Unknown LANA MELCHOR [facility] 03/13/2018-Current PHONE: Unknown ANURADHA TAVARES Nurse Practitioner 11/06/2018-Current PHONE: [phone] TRUONG RUBI Primary Care Current PHONE: Unknown Bianca has no Care Guidelines for this patient. 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 - MANUEL MEETS WITH PATIENT ONCE A WEEK. - PATIENT CHOOSES AT TIMES TO BE NON COMPLIANT WITH MEDICATIONS. - MANUEL ASSEMBLER FINGER BUFFS- IS FOLLOWING UP WITH PATIENT CLOSELY. 05/17/2018 [facility] - CHW CONTACTED WENDY VEGAS [facility] RN CM- THEY HAVE BEEN DISCUSSING PATIENT CARE WITH PCP. - PATIENT DOES HAVE A MOUNTING MACHINE OPERATOR WHO IS BEING SEEN OUTSIDE OF THE [facility] NETWORK. - PATIENT PCP IS AWARE OF PATIENT CURRENT MEDICAL CONDITIONS. 03/14/2018 [facility] - PER PCP OFFICE- PATIENT HAS NOT FOLLOWED UP WITH PCP AFTER DISCHARGE FROM HOSPITAL ON 02/05/18. - PATIENT IS NOT FOLLOWING UP AND OR UTILIZING MENTAL HEALTH SERVICES THROUGH [facility]. E.D. [facility] (12 MO.) [facility]. TOTAL 12 NOTE: Visits indicate total known visits. ED/UCC VISIT TRACKING (12 MO.) 12/30/2018 13:13 ADELITA Bailey TYPE: Emergency COMPLAINT: - FOOT PAIN, INJ 11/05/2018 20:20 ADELITA Bailey TYPE: Emergency COMPLAINT: - ABDOMINAL PAIN DIAGNOSES: - Unspecified abdominal pain - Unspecified cirrhosis of liver - Other jail (current) drug therapy 11/01/2018 14:07 [facility] Onur MONTANO TYPE: Emergency DIAGNOSES: - Abdominal Pain - Other ascites - abd pain 10/13/2018 20:27 ADELITA Kleinyamile McfarlaneNader [place] TYPE: Emergency COMPLAINT: - ABDOMINAL PAIN DIAGNOSES: - Other vermin exterminator (current) drug therapy - Other ascites - Unspecified cirrhosis of liver - Unspecified abdominal pain 08/18/2018 22:04 ADEL[facility] [place] TYPE: Emergency COMPLAINT: - NAUSEA/TREMORS/DIARRHEA 07/23/2018 09:[address] [facility] [address] [facility] [place] TYPE: Emergency COMPLAINT: - ABD PAIN DIAGNOSES: - Other jail (current) drug therapy - Periumbilical pain - Acquired absence of other specified parts of digestive tract - Hypothyroidism, unspecified - Unspecified cirrhosis of liver - Acquired absence of both cervix and uterus 05/15/2018 17:[address] [facility] [address] Mu[facility] Denys[facility]ader [place] TYPE: Emergency COMPLAINT: - ABD PAIN DIAGNOSES: - Other jail (current) drug therapy - Hypothyroidism, unspecified - Personal history of transient ischemic attack (TIA), and cerebral infarction without residual deficits - Unspecified abdominal pain - Acquired absence of both cervix and uterus 05/11/2018 19:26 [facility] [place] TYPE: Emergency COMPLAINT: - ABD PAIN DIAGNOSES: - Other jail (current) drug therapy - Acquired absence of both cervix and uterus - Left upper quadrant pain - Hypothyroidism, unspecified - Unspecified cirrhosis of liver 05/02/2018 12:18 A[facility] [place] TYPE: Emergency COMPLAINT: - ABD PAIN/SOB DIAGNOSES: - Hypothyroidism, unspecified - Shortness of breath - Other jail (current) drug therapy - Other ascites - Liver disease, unspecified 03/12/2018 12:01 ADEL[facility] [place] TYPE: Emergency COMPLAINT: - ABD PAIN DIAGNOSES: - 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 (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 analgesic - Unspecified abdominal pain - Other jail (current) drug therapy - Allergy status to narcotic agent status - Hypothyroidism, unspecified 02/13/2018 12:56 A[facility] [place] TYPE: Emergency COMPLAINT: - PAIN/DISORIENTATED 01/28/2018 17:38 A[facility] [place] TYPE: Emergency COMPLAINT: - FALL/BACK PAIN DIAGNOSES: - Unspecified fracture of first lumbar vertebra, initial encounter for closed fracture - Low back pain - Other vermin exterminator (current) drug therapy - Allergy status to narcotic agent status - Constipation, unspecified - Hypothyroidism, unspecified - Fall on same level, unspecified, initial encounter INPATIENT VISIT TRACKING (12 MO.) 08/18/2018 22:05 ADEL[facility] [place] TYPE: Observation COMPLAINT: - HYPOTENSION DIAGNOSES: - Unspecified abdominal pain - Adverse effect of loop [high-ceiling] diuretics, initial encounter - Other ascites - Gastro-esophageal reflux disease without esophagitis - Hypothyroidism, unspecified - Unspecified cirrhosis of liver - Other vermin exterminator (current) drug therapy - Autoimmune hepatitis - Nausea - Other hypotension - Dehydration - Altered mental status, unspecified - Chronic hepatic failure without coma 2018 11:49 [facility] TYPE: Critical Care DIAGNOSES: 51307. Hepatic failure, unspecified without coma 25118. Other specified diseases of intestine 60222. Other specified disorders of bladder 72296. Spondylosis without myelopathy or radiculopathy, cervical region 75434. Autoimmune hepatitis 07956. Hypothyroidism, unspecified 90154. Gastritis, unspecified, without bleeding 45424. Wedge compression fracture of first lumbar vertebra, subsequent encounter for fracture with routine healing 79447. Other disorders of electrolyte and fluid balance, [...] pathological fracture, vertebra(e), initial encounter for fracture [email or web address]
== END 2018-12-30 14:36 | disposition home or self-care (01) ==
LOC: ED 13:12
DX: S90.32XA Contusion of left foot, initial encounter (principal); W22.8XXA Striking against or struck by other objects, initial encounter; Z79.899 Other long term (current) drug therapy
CPT/HCPCS: 73630; 99283-25

== ENCOUNTER 2019-01-04 07:24 | Observation (INO) | payer OTHER ==
[~2019-01-04] VITALS: Ht 165.1 cm; Wt 91.7 kg
--- OUTSIDE RECORDS SUMMARY | 2019-01-04 07:28 | XMS ---
PreManage Notification: LESLYE MAGANA Security Detective Investigator Events No recent Security Events currently on file CRITERIA MET - 6 ED Visits in 6 Months - [facility] - Has Care Guidelines - [facility] - 2 Visits in 30 Days CARE PROVIDERS TRUONG RUBI Internal Medicine: Pulmonary Disease Current PHONE: Unknown LANA MELCHOR [facility] 03/13/2018-Current PHONE: Unknown ANURADHA TAVARES Nurse Practitioner 11/06/2018-Current PHONE: [phone] TRUONG RUBI Primary Care Current PHONE: Unknown Bianca has no Care Guidelines for this patient. 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 - MANUEL MEETS WITH PATIENT ONCE A WEEK. - PATIENT CHOOSES AT TIMES TO BE NON COMPLIANT WITH MEDICATIONS. - MANUEL MOBLEYSAP SECURITY ARCHITECT- IS FOLLOWING UP WITH PATIENT CLOSELY. 05/17/2018 [facility] - CHW CONTACTED WENDY AT [facility] LEANDRA CM- THEY HAVE BEEN DISCUSSING PATIENT CARE WITH PCP. - PATIENT DOES HAVE A PHOTOGRAMMETRIC COMPILATION SPECIALIST WHO IS BEING SEEN OUTSIDE OF THE [facility] NETWORK. - PATIENT PCP IS AWARE OF PATIENT CURRENT MEDICAL CONDITIONS. 03/14/2018 [facility] - PER PCP OFFICE- PATIENT HAS NOT FOLLOWED UP WITH PCP AFTER DISCHARGE FROM HOSPITAL ON 02/05/18. - PATIENT IS NOT FOLLOWING UP AND OR UTILIZING MENTAL HEALTH SERVICES THROUGH [facility]. E.Sai VISIT COUNT (12 MO.) 1 [facility] NajmaNader 12 [facility]. TOTAL 13 NOTE: Visits indicate total known visits. ED/C VISIT TRACKING (12 MO.) 01/04/2019 07:25 [facility] [place] TYPE: Emergency COMPLAINT: - SHAKY 12/30/2018 13:13 [facility] [place] TYPE: Emergency COMPLAINT: - FOOT PAIN, INJ DIAGNOSES: - Pain in left foot - Striking against or struck by other objects, initial encounter - Other automotive machinist (current) drug therapy - Contusion of left foot, initial encounter 11/05/2018 20:20 A[facility] [place] TYPE: Emergency COMPLAINT: - ABDOMINAL PAIN DIAGNOSES: - Unspecified abdominal pain - Unspecified cirrhosis of liver - Other automotive machinist (current) drug therapy 11/01/2018 14:07 [facility] [place] TYPE: Emergency DIAGNOSES: - Abdominal Pain - Other ascites - abd pain 10/13/2018 20:27 ADELITA Bailey TYPE: Emergency COMPLAINT: - ABDOMINAL PAIN DIAGNOSES: - Other halfway (current) drug therapy - Other ascites - Unspecified cirrhosis of liver - Unspecified abdominal pain 08/18/2018 22:04 ADELITA Bailey TYPE: Emergency COMPLAINT: - NAUSEA/TREMORS/DIARRHEA 07/23/2018 09:56 ADELITA Bailey TYPE: Emergency COMPLAINT: - ABD PAIN DIAGNOSES: - Other halfway (current) drug therapy - Periumbilical pain - Acquired absence of other specified parts of digestive tract - Hypothyroidism, unspecified - Unspecified cirrhosis of liver - Acquired absence of both cervix and uterus 05/15/2018 17:37 A[facility] [place] TYPE: Emergency COMPLAINT: - ABD PAIN DIAGNOSES: - Other halfway (current) drug therapy - Hypothyroidism, unspecified - Personal history of transient ischemic attack (TIA), and cerebral infarction without residual deficits - Unspecified abdominal pain - Acquired absence of both cervix and uterus 05/11/2018 19:26 [facility] [place] TYPE: Emergency COMPLAINT: - ABD PAIN DIAGNOSES: - Other halfway (current) drug therapy - Acquired absence of both cervix and uterus - Left upper quadrant pain - Hypothyroidism, unspecified - Unspecified cirrhosis of liver 05/02/2018 12:18 [facility] [place] TYPE: Emergency COMPLAINT: - ABD PAIN/SOB DIAGNOSES: - Hypothyroidism, unspecified - Shortness of breath - Other halfway (current) drug therapy - Other ascites - Liver disease, unspecified 03/12/2018 12:01 ADEL[facility] [place] TYPE: Emergency COMPLAINT: - ABD PAIN DIAGNOSES: - [facility] (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 analgesic - Unspecified abdominal pain - Other automotive machinist (current) drug therapy - Allergy status to narcotic agent status - Hypothyroidism, unspecified 02/13/2018 12:56 ADEL[facility] [place] TYPE: Emergency COMPLAINT: - PAIN/DISORIENTATED 01/28/2018 17:38 ADEL[facility] Barber [place] TYPE: Emergency COMPLAINT: - FALL/BACK PAIN DIAGNOSES: - Unspecified fracture of first lumbar vertebra, initial encounter for closed fracture - Low back pain - Other automotive machinist (current) drug therapy - Allergy status to [...] - Unspecified cirrhosis of liver - Other automotive machinist (current) drug therapy - Autoimmune hepatitis - Nausea - Other hypotension - Dehydration - Altered mental status, unspecified - Chronic hepatic failure without coma 2018 11:49 [facility] TYPE: Critical Care DIAGNOSES: 11127. Hepatic failure, unspecified without coma 87356. Other specified diseases of intestine 02685. Other specified disorders of bladder 42430. Spondylosis without myelopathy or radiculopathy, cervical region 07066. Autoimmune hepatitis 81016. Hypothyroidism, unspecified 10561. Gastritis, unspecified, without bleeding 77150. Wedge compression fracture of first lumbar vertebra, subsequent encounter for fracture with routine healing 87167. Other disorders of electrolyte and fluid balance, [...] pathological fracture, vertebra(e), initial encounter for fracture [email or web address]
[2019-01-04] MEDS ORDERED: FUROSEMIDE40 MG PO (08:22)
[2019-01-04] MEDS ORDERED: LACTULOSE10 GM/15 M PO (08:23)
[2019-01-04] MEDS ORDERED: SPIRONOLACTONE100 MG PO (08:24)
--- NOTE | 2019-01-04 10:42 | NUR ---
PT ARRIVED TO FLOOR FROM ER VIA STRETCHER. PT IS AAO TO PLACE, TIME, SITUATION. ORIENTED TO ROOM AND UPDATED ON PLAN OF CARE ASSESSMENT COMPLETED, MEDICATION GIVEN, BLOUS STARTED AT 200ML/HR. CALL LIGHT IN REACH. WATER PROVIDED. DENIES PAIN/NAUSEA/VOMITING.
--- NOTE | 2019-01-04 12:57 | NUR ---
MEDICATION RECONCILIATION COMPLETED.
--- NOTE | 2019-01-04 13:11 | EKG ---
[facility] [address] [place], [place] [address] Signed Sinus tachycardia Otherwise normal ECG When compared with ECG of 13-FEB-2018 15:01, No significant change was found Confirmed by NGOZI CÁRDENAS DO ([id number]) on 01/04/2019 1:11:16 PM Electronically Signed By: NGOZI CÁRDENAS DO 01/04/19 1311 PATIENT NAME: LESLYE MAGANA Electrocardiogram DATE OF : 53 PHYSICIAN: NGOZI CÁRDENAS DO REPORT #: [id number] REPORT IS CONFIDENTIAL AND NOT TO BE RELEASED WITHOUT AUTHORIZATION
--- NOTE | 2019-01-04 14:49 | NUR ---
SBA TO BATHROOM FOR BM.
--- NOTE | 2019-01-04 19:37 | NUR ---
PATIENT SITTING UP IN BED WITH FAMILY VISITING. PATIENT FINISHED EATING DINNER. PATIENT REPORTS PAIN OF 4/10 AND 500 MG TYLENOL PROVIDED. PATIENT DENIES ANY FURTHER NEEDS AT THIS TIME, CALL LIGHT WITHIN REACH.
--- NOTE | 2019-01-04 19:55 | NUR ---
RECEIVED REPORT FROM LEANDRA GRDAY. pt UP TO TOILET. WHITEBOARD UPDATED. WILL CALL WHEN READY TO GET BACK TO BED. CALL LIGHT WITHIN REACH.
--- NOTE | 2019-01-04 20:00 | NUR ---
PT PULLED CALL LIGHT FROM RESTROOM. SBA BACK TO BED WITH FWW. SHE DENIES FURTHER NEEDS AT THIS TIME. CALL LIGHT IS WITHIN REACH.
--- NOTE | 2019-01-04 21:33 | NUR ---
pt RESTING WITH EYES CLOSED. WOKE EASILY. ASSESSMENT DONE. MEDICATIONS GIVEN. VITALS RECORDED. BP BELOW PARAMETERS. MD NOTIFIED. NO NEW ORDERS. WILL RECHECK. pt REQUESTED SOUP, PROVIDED WITH FRESH WATER. NO FURTHER REQUESTS AT THIS TIME. CALL LIGHT WITHIN REACH.
--- NOTE | 2019-01-04 22:06 | NUR ---
RECHECKED BLOOD PRESSURE. pt EATING SOUP. NO FURTHER REQUESTS AT THIS TIME. CALL LIGHT WITHIN REACH. LIGHTS OFF FOR COMFORT.
--- NOTE | 2019-01-05 00:10 | NUR ---
ROUNDED ON pt. RESTING WITH EYES CLOSED, RESPIRATIONS REGULAR AND UNLABORED. CALL LIGHT WITHIN REACH.
--- NOTE | 2019-01-05 02:19 | NUR ---
ROUNDED ON pt. RESTING WITH EYES CLOSED, RESPIRATIONS REGULAR AND UNLABORED. CALL LIGHT WITHIN REACH.
--- NOTE | 2019-01-05 04:00 | NUR ---
ROUNDED ON pt. RESTING WITH EYES CLOSED, RESPIRATIONS REGULAR AND UNLABORED. CALL LIGHT WITHIN REACH.
--- NOTE | 2019-01-05 05:15 | NUR ---
CALL LIGHT ON. pt UP TO TOILET AND BACK TO BED. STANDING WEIGHT, VITALS, I&O RECORDED. ASSESSMENT DONE. NEW BAG OF FLUIDS AND MORNING MED (SEE MAR). DENIES PAIN AT THIS TIME DISCUSSED PLAN OF CARE AND CURRENT ILLNESS. CALL LIGHT WITHIN REACH.
--- NOTE | 2019-01-05 06:20 | NUR ---
pt RESTED MOST OF SHIFT. DENIED NAUSEA. SBA FWW. DAILY WEIGHT. IVF INFUSING. TOLERATING 2GM SODIUM DIET. USES CALL LIGHT APPROPRIATELY.
--- NOTE | 2019-01-05 07:28 | NUR ---
PT RESTING SOUNDLY AT BEDSIDE REPORT. TV ON, IV INFUSING, CALL LIGHT AND NEEDED TIEMS AT BEDSIDE .
--- NOTE | 2019-01-05 09:52 | NUR ---
BATHROOM CALL LIGHT ON. SBA BACK TO BED. PT STATES SHE DOES NOT WANT TO SIT IN CHAIR AND PREFERES TO SIT ON THE EDGE OF THE BED. LARGE LOOSE BM NOTED. PTS GOWN CHANGED PER PT REQUEST. NO ADDITIONAL REQUESTS OR COMPLAINTS AT THIS TIME. CALL LIGHT WITHIN REACH. FAMILY AT BEDSIDE.
--- NOTE | 2019-01-05 10:00 | NUR ---
PT ALERT AND COOPERATIVE ANSWERS QUESTIONS APPROPRIATELY. AWAKENED FOR BREAKFAST EATS A SMALL AMOUNT. VISITOR TO ROOM. PT UP WORKING WITH P/T AT THIS TIME
--- NOTE | 2019-01-05 10:46 | NUR ---
PATIENT RESTING IN BED. VITAL SIGNS AND I&O DONE. PATIENT GOES TO TAKE A SHOWER. PATIENT USES WALKER. ONE PERSON ASSISTING. PATIENT USING A CLEAN GOWN AND ADULT PULL UP. LINENS CHANGED. WARM BLANKET PROVIDED. CALL LIGHT WITHIN REACH. NO OTHER NEEDS AT THIS TIME
--- NOTE | 2019-01-05 10:59 | NUR ---
pt up to the shower, well tolerated. returns to bed, refuses chair. pt agrees she is comfortable at this time denies needs.
--- NOTE | 2019-01-05 11:33 | NUR ---
DR CÁRDENAS IN TO SEE PT, QUESTIONS ASKED AND ANSWERED. VISITOR PRESENT IN THE ROOM
--- NOTE | 2019-01-05 11:35 | NUR ---
UNABLE TO GET MEDICAL RECORDS FROM MOST RECENT GI VISIT AT [facility] PER DR. CÁRDENAS'S REQUEST, [facility] MED REC IS CLOSED.
--- NOTE | 2019-01-05 14:12 | NUR ---
pt up for noon meal then returns to resting in bed.
--- NOTE | 2019-01-05 14:22 | NUR ---
PATIENT RESTING IN BED. DAUGHTER IN ROOM. VITAL SIGNS AND I&O DONE. CALL LIGHT WITHIN REACH. NO OTHER NEEDS AT THIS TIME
--- NOTE | 2019-01-05 19:01 | NUR ---
IN ROOM FOR REPORT, PT IS AWAKE WITH VISITOR IN THE ROOM. CALL LIGHT IS CLOSE.
--- NOTE | 2019-01-05 19:19 | NUR ---
CHARGE NURSE REPORT RECEIVED FROM TAMIKO. PT IN BED, NO NEEDS.
--- NOTE | 2019-01-05 21:13 | NUR ---
IN ROOM TO ADMINISTER MEDICATIONS AND ASSESS PT. SHE DENIES PAIN AT THIS TIME. SHE STATES SHE FEELS WEAK WHICH IS NORMAL FOR HER LATELY. LACTULOSE WAS HELD PER ORDERS FOR HAVING MORE THAN 3BMS TODAY. SHE STATES THAT TOO MANY VISITORS MAKES HER TIRED BUT DENIES THE NEED FOR A SIGN ON THE DOOR TO SCREEN VISITORS TONIGHT/MORNING. SHE WILL ADVISE IF SHE CHANGES HER MIND. PT DENIES NEEDS AND CALL LIGHT IS WITHIN REACH.
--- NOTE | 2019-01-05 23:15 | NUR ---
PT IS RESTING WITH EYES CLOSED, RR IS EVEN AND NONLABORED. CALL LIGHT IS WITHIN REACH.
--- NOTE | 2019-01-06 01:24 | NUR ---
PT IS RESTING WITH EYES CLOSED, RR IS EVEN AND NONLABORED. CALL LIGHT IS WITHIN REACH.
--- NOTE | 2019-01-06 03:07 | NUR ---
PT IS RESTING WITH EYES CLOSED, RR IS EVEN AND NONLABORED. CALL LIGHT IS WITHIN REACH.
--- NOTE | 2019-01-06 04:44 | NUR ---
PT IS AWAKE IN BED, SHE DENIES NEEDS AT THIS TIME. SHE STATES SHE WILL TRY TO GET A LITTLE MORE SLEEP BEFORE LAB DRAWS. CALL LIGHT IS CLOSE.
--- NOTE | 2019-01-06 06:25 | NUR ---
IN ROOM TO ADMINISTER THYROID MEDICATION. ASSITED PT TO THE RESTROOM AND BACK TO BED. PT DENIES FURTHER NEEDS AT THIS TIME. CALL LIGHT IS WITHIN REACH.
--- NOTE | 2019-01-06 08:04 | NUR ---
PATIENT SLEEPING. CALL LIGHT WITHIN REACH. NO OTHER NEEDS AT THIS TIME
--- NOTE | 2019-01-06 08:53 | NUR ---
CALL LIGHT ANSWERED. PATIENT RESTING IN BED. PATIENT GOES TO USE BATHROOM. PATIENT USES WALKER. ONE PERSON ASSISTING. PATIENT WASHES HER FACE AND HANDS. PATIENT BACKS TO BED. PATIENT'S BREAKFAST ORDERED. CALL LIGHT WITHIN REACH. NO OTHER NEEDS AT THIS TIME
--- NOTE | 2019-01-06 09:34 | NUR ---
PT SITTING UP IN BED WATCHING TV WAITING FOR HER BREAKFAST. PT DENIES PAIN OR OTHER CONCERNS AT THIS TIME. ALERT AND ORIENTED TO ALL. CALL LIGHT WITHIN REACH.
--- NOTE | 2019-01-06 10:02 | NUR ---
PATIENT RESTING IN BED. VITAL SIGNS AND I&O DONE. CALL LIGHT WITHIN REACH. NO OTHER NEEDS AT THIS TIME
[2019-01-06] MEDS ORDERED: SPIRONOLACTONE100 MG PO (11:09)
--- NOTE | 2019-01-06 11:20 | NUR ---
PT REPORTED 4/10 UPPER ABD PAIN. SLIGHTLY RELIEVED AFTER LARGE BM. MEDICATED WITH PRN TYLENOL. NOTIFIED DR. CÁRDENAS.
--- NOTE | 2019-01-06 13:00 | NUR ---
SBA TO RESTROOM. PT REPORTS ABD PAIN RESOLVED AT THIS TIME. GOT DRESSED INDEPENDENTLY. DC INSTRUCTIONS GIVEN TO PT AND DAUGHTER. ALL QUESTIONS ANSWERED.
== END 2019-01-06 13:15 | disposition home or self-care (01) ==
LOC: ED 07:24 → MS 07:26
PROVIDERS: ADMIT Student in an Organized Health Care Education/Training Program
DX: K72.90 Hepatic failure, unspecified without coma (principal); K75.4 Autoimmune hepatitis; K74.60 Unspecified cirrhosis of liver; E03.9 Hypothyroidism, unspecified; K21.9 Gastro-esophageal reflux disease without esophagitis; E87.1 Hypo-osmolality and hyponatremia; D61.818 Other pancytopenia; Z91.14 Patient's other noncompliance with medication regimen; Z79.2 Long term (current) use of antibiotics; Z79.899 Other long term (current) drug therapy
CPT/HCPCS: 36415; 71045; 80048; 80053; 81001; 82140; 83690; 83735; 84100; 84484; 85025; 86850; 86900; 86901; 86920; 93005; 93010; 96360; 96372; 97161; 99284-25; G0378; J1650; J2405; J7040; J7120

== ENCOUNTER 2019-03-21 19:59 | Inpatient (IN) | payer OTHER ==
[~2019-03-21] VITALS: Ht 165.1 cm; Wt 101.8 kg
--- OUTSIDE RECORDS SUMMARY | ~2019-03-21 | XMS | Encounter Summary ---
Demographics + + + | Address | [address] | | | [place] [address] | + + + | Home Phone | | + + + | Preferred Language | Unknown | + + + | Marital Status | | + + + | Mormonism Affiliation | Unknown | + + + | Race | Unknown | + + + | Ethnic Group | Unknown | + + + Author + + + | Author | [facility] | | | and [place] | + + + | Organization | [facility] | | | and [place] | + + + | Address | Unknown | + + + | Phone | Unavailable | + + + Support + + +---------+ + | Name | Relationship | Address | Phone | + + +---------+ + | Zoran Whitley | ECON | Unknown | | + + +---------+ + Care Team Providers + +------+ + | Care Engraver Automatic Name | Role | Phone | + +------+ + PCP | Unavailable | + +------+ + Reason for Visit + + + | Reason | Comments | + + + | Shortness of Breath | 1 mo follow up | + + + Evaluate & Treat (Routine) +--------+--------+ + + + + | Status | Reason | Specialty | Diagnoses / | Referred By | Referred To | | | | | Procedures | Contact | Contact | +--------+--------+ + + + + | Closed | | Pulmonary | Diagnoses | Dalila, | Kali, | | | | Disease / | LYLE | Morgan Vale DO | MD Duncan | | | | Pulmonology | (dyspnea on | [address] | [address] | | | | | exertion) | [place] | [place], | | | | | Procedures | WAY | [place] [address] | | | | | F/U | [place], | Phone: | | | | | | [place] [address] | [phone] | | | | | | Phone: | Fax: | | | | | | [phone] | [phone] | | | | | | Fax: | | | | | | | [phone] | | +--------+--------+ + + + + Encounter Details +--------+---------+ + + + | Date | Type | Department | Care Team | Description | +--------+---------+ + + + | 02/28/ | Office | [facility] | Duncan Bass, | Mild intermittent | | 2017 | Visit | PULMONARY [address] | MD [address] | asthma without | | | | [place], | [place], [place] | complication | | | | [place] [address] | [address] | | | | | [phone] | | | +--------+---------+ + + + Social History + +-------+ +--------+------+ | Tobacco Use | Types | Packs/Day | Years | Date | | | | | Used | | + +-------+ +--------+------+ | Never Smoker | | | | | + +-------+ +--------+------+ + +---+---+---+ | Smokeless Tobacco: | | | | | Never Used | | | | + +---+---+---+ + + | Tobacco Cessation: Counseling Given: No | + + + + +---------+ + | Alcohol Use | Drinks/Week | oz/Week | Comments | + + +---------+ + | No | | | | + + +---------+ + + + + | Sex Assigned at | Date Recorded | | | | + + + | Not on file | | + + + + + + + | Job Start Date | Occupation | Industry | + + + + | Not on file | Not on file | Not on file | + + + + + + + + | Travel History | Travel Start | Travel End | + + + + + + | No recent travel history available. | + + documented as of this encounter Last Filed Vital Signs + + + + + | Vital Sign | Reading | Time Taken | Comments | + + + + + | Blood Pressure | 110/64 | 02/28/2017 3:48 PM | | | | | PDT | | + + + + + | Pulse | 66 | 02/28/2017 3:48 PM | | | | | PDT | | + + + + + | Temperature | - | - | | + + + + + | Respiratory Rate | - | - | | + + + + + | Oxygen Saturation | 97% | 02/28/2017 3:48 PM | | | | | PDT | | + + + + + | Inhaled Oxygen | - | - | | | Concentration | | | | + + + + + | Weight | - | - | | + + + + + | Height | 165.1 cm (5' 5") | 02/28/2017 3:48 PM | | | | | PDT | | + + + + + | Body Mass Index | - | - | | + + + + + documented in this encounter Patient Instructions Patient Instructions Duncan Bass MD - 02/28/2017 3:30 PM PDT Asthma (Adult) Asthma is a disease where the medium and small air passages within the lung go into spasm and restrict the flow of air. Inflammation and swelling of the airways cause further restri ction. During an acute asthma attack, these factors cause difficulty breathing, wheezing, co ugh and chest tightness. An asthma attack can be triggered by many things. Common triggers include infections such a s the common cold, bronchitis, pneumonia. Irritants such as smoke or pollutants in the air, emotional upset, and exercise can also trigger an attack. Inmany adults with asthma, aller gies todust, mold, pollen and animal dander can cause an asthma attack. Skipping doses of daily asthma medicine can also bring on an asthma attack. Asthma can be controlled using theproper medicines prescribed by your healthcare provider and avoiding exposure to known triggers including allergens and irritants. Home care Take prescribed medicine exactly at the times advised. If you need medicine such as from a hand held inhaler or aerosol breathing machine more than every 4 hours, contact your [facility] provider or seek immediate medical attention. If prescribed an antibiotic or predniso ne, take all of the medicine as prescribed, even if you are feeling better after a few days. Do not smoke. Avoid being exposed to the smoke of others. Some people with asthma have worsening of their symptoms when they take aspirin and non- steroidal or fever-reducing medicines like ibuprofen and naproxen. Talk to your healthcare p jamarcus if you think this may apply to you. Follow-up care Follow up with your healthcare provider, or as advised. Always bring all of your current me dicines to any appointments with your healthcare provider. Also bring a complete list of med ications eventhose not taken for asthma. If you do not already have one, talk to your [facility] provider about developing a personalized "Asthma Action Plan." A pneumococcal (pneumonia)vaccine and yearly flu shot (every fall) are recommended. Ask y our doctor about this. When to seek medical advice Call your healthcare provider right away if any of these occur: Increased wheezing or shortness of breath Need to use your inhalers more often than usual without relief Fever of 100.4F (38C) or higher, or as directed by your healthcare provider Coughing up lots of dark-colored or bloody sputum (mucus) Chest pain with each breath If you use a peak flow meter as part of an Asthma Action Plan, and you are still in the yellow zone (50% to 80%) 15 minutes after using inhaler medicine. Call 911 Call 911 if any of the following occur Trouble walking or talking because of shortness of breath If you use a peak flow meter as part of an Asthma Action Plan andyou are still in the red zone (less than 50%) 15 minutes after using inhaler medicine Lips or fingernails turning ching or blue Date Last Reviewed: 04/01/201519996667-2578 [employer]. [address] [place] [address]. All righ ts reserved. This information is not intended as a substitute for professional medical care. Always follow your healthcare professional's instructions. documented in this encounter Progress Notes Duncan Bass MD - 02/28/2017 3:30 PM PDTFormatting of this note might be different f rom the original. Pulmonary Clinic Follow Up 02/28/2017 HPI Aline Whitley is a 62 y.o. female patient of Morgan Conner, DO here today for follow up of dyspnea on exertion thought to be consistent with intermittent asthma. It has been 1 month since our last clinic appointment. At their last visit, we established a plan to initiate as needed ProAir. Since the last visit she feels like their symptoms are decreasing steadily. They have hav e not had any recent episodes of "bronchitis-like" symptoms. To treat their SOB they are currently on a regimen of prn ProAir. They do feel like this m edication regimen is decreasing their symptoms. The patient does not report the presence of side effects from these medication(s). Uses ProAir 1-2 times per week. Currently Aline is able to walk 200 yards at their own pace on level ground before deve loping symptoms. They are not exercising regularly. Their typical exercise consists of walki ng 1-2 times per week. They are not enrolled in cardiac/pulmonary rehabilitation. She does cough chronically, and does not produce mucous. They have not had hemoptysis since our last appointment. Aline has not been evaluated for nocturnal oxygen. She does not have symptoms of heartburn or reflux. They have not noted recent symptoms of n raji congestion or post nasal drip. The patient have not received this year's influenza vaccination. The patient plans to rece wes a flu shot later this week at her primary care provider's office. They are up to date w ith their Pneumovax. Past Medical History Past Medical History: Diagnosis Date Allergic rhinitis Arthritis Autoimmune hepatitis (HCC) Chronic back pain Depression Deviated nasal septum LYLE (dyspnea on exertion) Esophageal varices without bleeding (HCC) Female stress incontinence Hepatosplenomegaly Hypothyroid Insomnia Insomnia Liver cirrhosis (HCC) Obesity Osteoporosis Sensorineural hearing loss Thrombocytopenia (HCC) Vitamin D deficiency Allergies: Allergies Allergen Reactions Hydrocodone Itching Oxycodone Itching and Rash insomnia Medications: Current Outpatient Prescriptions: albuterol (PROAIR HFA) 90 mcg/puff inhaler, Inhale 2 puffs into the lungs every 4 hour s as needed for Shortness of Breath., Disp: 1 Inhaler, Rfl: 5 azaTHIOprine (IMURAN) 50 mg tablet, 1/2 tablet by mouth daily, Disp: , Rfl: buPROPion (WELLBUTRIN XL) 300 mg 24 hr tablet, Take 300 mg by mouth every morning., Di sp: , Rfl: fexofenadine (JELANI) 180 mg tablet, Take 180 mg by mouth Daily as needed., Disp: , R fl: levothyroxine (SYNTHROID, LEVOTHROID) 100 mcg tablet, Take 100 mcg by mouth every morn ing (before breakfast)., Disp: , Rfl: omeprazole (PRILOSEC) 40 MG capsule, Take 40 mg by mouth every morning (before break)., Disp: , Rfl: propranolol (INDERAL) 20 MG tablet, Take 20 mg by mouth 2 times daily., Disp: , Rfl: simethicone (MYLICON) 80 mg chewable tablet, Take 160 mg by mouth as needed for [place] ence., Disp: , Rfl: spironolactone (ALDACTONE) 100 MG tablet, Take 100 mg by mouth Daily., Disp: , Rfl: tolterodine (DETROL LA) 4 MG 24 hr capsule, Take 4 mg by mouth Daily., Disp: , Rfl: zolpidem (AMBIEN) 5 mg tablet, Take 5 mg by mouth nightly as needed., Disp: , Rfl: Immunizations: Immunization History Administered Date(s) Administered INFLUENZA PF QUAD(PED/ADOL/ADULT),PSKT or VIAL 01/21/2014, 02/09/2015, 02/05/2016 PNEUMOCOCCAL POLYSACCHARIDE 23-VALENT (PPSV23) 12/20/2005 PPD Test 11/02/2010 Objective BP 110/64 | Pulse 66 | Ht 1.651 m (5' 5") | SpO2 97% Appearance: Alert, cooperative, no distress, appears stated age Head: Normocephalic, without obvious abnormality, atraumatic Eyes: PERRL, conjunctiva/corneas clear Nose: Nares normal, septum midline, mucosa normal, no drainage or sinus tenderness Throat: Lips, mucosa, and tongue normal; teeth/dentures normal Neck: Supple, symmetrical, no JVD Lungs: No accessory muscle use, breath sounds are clear to auscultation bilaterally, no w heezes, No crackles or rhonchi. No dullness to percussion. Chest Wall: No tenderness or deformity Heart: Regular rate and rhythm, S1, S2 normal, no murmur, rub or gallop Extremities: Extremities normal, atraumatic, no cyanosis, clubbing. 1+ edema to the mid ca lf bilaterally () Lasix). Skin: Warm and dry Lymph nodes: Cervical and supraclavicular nodes normal Neurologic: Gait normal Data: None. Assessment 1. Probable asthma mild intermittent. Significant improvement of symptoms with the init iation of ProAir as needed. The patient's current use of ProAir is infrequent enough not to suggest the need for a chronic controller medication. I have suggested to Svitlana that she monitor her symptoms closely and to notify our office if worsening shortness of breath/increase ProAir use were to occur. The patient was encouraged to obtain a seasonal influenza vaccination as soon as possible. Plan 1. Continue to utilize ProAir, 2 puffs up to every 4 hours as needed for shortness of anne th. 2. The interval between pulmonary clinic follow-up appointments will be lengthened to 6 mo nths. 3. I have encouraged to Svitlana to contact our office if worsening shortness of breath were to develop. CC: Morgan Conner, DO Tdocumented in this encounter Plan of Treatment Not on filedocumented as of this encounter Visit Diagnoses + + | Diagnosis | + + | Mild intermittent asthma without complication Unspecified asthma | + + documented in this encounter
--- OUTSIDE RECORDS SUMMARY | ~2019-03-21 | XMS | Encounter Summary ---
Demographics + + + | Address | [address] | | | [place] [address] | + + + | Home Phone | | + + + | Preferred Language | Unknown | + + + | Marital Status | | + + + | Worship Affiliation | Unknown | + + + | Race | Unknown | + + + | Ethnic Group | Unknown | + + + Author + + + | Author | [facility] | | | and [place] | + + + | Organization | [facility] | | | and [place] | [...] Team Providers + +------+ + | Care Veterinary Virologist Name | Role | Phone | + +------+ + PCP | Unavailable | + +------+ + Reason for Visit +--------+ + | Reason | Comments | +--------+ + | Asthma | 4 wk follow up | +--------+ + Evaluate & Treat (Routine) +--------+--------+ + + + + | Status | Reason | Specialty | Diagnoses / | Referred By | Referred To | | | | | Procedures | Contact | Contact | +--------+--------+ + + + + | Closed | | Pulmonary | Diagnoses | Dalila, | Kali, | | | | Disease / | Mild | Morgan Kavin, DO | MD Duncan | | | | Pulmonology | intermittent | [address] | [address] | | | | | asthma, | [place] | [place], | | | | | uncomplicate | WAY | [place] [address] | | | | | d | [place], | Phone: | | | | | Procedures | [place] [address] | [phone] | | | | | FU | Phone: | Fax: | | | | | | [phone] | [phone] | | | | | | Fax: | | | | | | | [phone] | | +--------+--------+ + + + + Encounter Details +--------+---------+ + + + | Date | Type | Department | Care Team | Description | +--------+---------+ + + + | 10/19/ | Office | [facility] | Duncan Bass, | Mild persistent | | 2018 | Visit | PULMONARY [address] | asthma without | | | | [place], | [place], [place] | complication | | | | [place] [address] | [address] | (Primary Dx); Need | | | | [phone] | | for pneumococcal | | | | | | vaccine | +--------+---------+ + + + Social History [...] + + + | Blood Pressure | 128/78 | 10/19/2017 10:32 AM | | | | | PDT | | + + + + + | Pulse | 88 | 10/19/2017 10:32 AM | | | | | PDT | | + + + + + | Temperature | 36.9 C (98.5 F) | 10/19/2017 10:32 AM | | | | | PDT | | + + + + + | Respiratory Rate | - | - | | + + + + + | Oxygen Saturation | 97% | 10/19/2017 10:32 AM | | | | | PDT | | + + + + + | Inhaled Oxygen | - | - | | | Concentration | | | | + + + + + | Weight | 120.2 kg (264 lb | 10/19/2017 10:32 AM | | | | 15.9 oz) | PDT | | + + + + + | Height | 165.1 cm (5' 5") | 10/19/2017 10:32 AM | | | | | PDT | | + + + + + | Body Mass Index | 44.1 | 10/19/2017 10:32 AM | | | | | PDT | | + + + + + documented in this encounter Patient Instructions Patient Instructions Duncan Bass MD - 10/19/2017 10:30 AM PDT Asthma (Adult) Asthma is a disease where the medium and small air passages within the lung go into spasm and restrict the flow of air. Inflammation and swelling of the airways cause further blocka ge. During an acute asthma attack, these factors cause trouble breathing, wheezing, cough an d chest tightness. An asthma attack can be triggered by many things. Common triggers include infections such a s the common cold, bronchitis, and pneumonia. Irritants such as smoke or pollutants in the a ir, very cold air, emotional upset, and exercise can also trigger an attack. Inmany adults with asthma, allergies todust, mold, pollen and animal dander can [...] more than every 4 hours, contact your [facility] provider or seek immediate medical attention. If prescribed an antibiotic or predniso ne, take all of the medicine as prescribed, even if you are feeling better after a few days. Don't smoke. Avoid being exposed to the smoke [...] Also bring a complete list of med icines eventhose not taken for asthma. If you don't already have one, talk to your [facility] are provider about developing your own "Asthma Action Plan." A pneumococcal (pneumonia)vaccine and [...] turning ching or blue Date Last Reviewed: 08/29/201619993088-8448 [employer] [place] [address]. All righ ts reserved. This information is not intended as a substitute for professional medical care. Always follow your healthcare professional's instructions. documented in this encounter Progress Notes Duncan Bass MD - 10/19/2017 10:30 AM PDTFormatting of this note might be different f rom the original. Pulmonary Follow Up 10/19/2017 HPI Aline Whitley is a 62 y.o. female patient of Morgan Conner DO here today for follow up of asthma. The patient's last visit was on 09/22/17. Since the last visit she feels like their asthma has been decreasing. At the time of the patient's last clinic appointment we instituted a p rednisone taper and began Qvar.. They have not had any acute illnesses resulting in worsening asthma symptoms. They have no t required a burst of prednisone since our last appointment. Specifically 0 tapers of pred nisone have occurred over the interval. Lastly Aline notes 0 ED visits and 0 hospitaliza tions for asthma have occurred since the last appointment. Their controller medication regimen currently consists of Qvar 2 p BID. They do not feel l faina this medication regimen is effective at controlling their symptoms. Currently Aline is using their rescue albuterol, ProAir, 0 times a day. Currently Aline reports being able to walk 150-200 feet at their own pace on level [facility] [address] before becoming symptomatic. They are not exercising regularly. Current exercise consis ts of walking with activity. She does not cough chronically, and does not produce mucous. Aline does not report symptoms of heartburn or acid reflux. They have not had recent sy mptoms of nasal congestion, runny nose or post nasal drip. New triggers since the last appointment include none. Aline Whitley is not smoking cigarettes. The patient have received this year's influenza vaccination. They are up to date with thei r Pneumovax but is in need of a Prevnar 13. Past Medical History Past Medical History: Diagnosis Date Acid reflux disease Allergic rhinitis Arthritis Autoimmune hepatitis (HCC) Chronic back pain Depression Deviated nasal septum LYLE (dyspnea on exertion) Esophageal varices without bleeding (HCC) Female stress incontinence Hepatosplenomegaly Hypothyroid Insomnia Insomnia Liver cirrhosis (HCC) Mild intermittent asthma without complication 02/28/2017 Obesity Osteoporosis Pneumonia Pneumonia 07/30/2017 admitted overnight at [facility] Sensorineural hearing loss Thrombocytopenia (HCC) Vitamin D deficiency Allergies: Allergies Allergen Reactions Hydrocodone Itching Oxycodone Itching and Rash insomnia Medications: Current Outpatient Prescriptions: azaTHIOprine (IMURAN) 50 mg tablet, Take 25 mg by mouth Daily., Disp: , Rfl: beclomethasone (QVAR) 80 mcg/puff inhaler, Inhale 2 puffs into the lungs 2 times daily ., Disp: 1 Inhaler, Rfl: 5 fexofenadine (JELANI) 180 mg tablet, Take 180 mg by mouth Daily as needed., Disp: , R fl: furosemide (LASIX) 80 mg tablet, , Disp: , Rfl: levothyroxine (SYNTHROID, LEVOTHROID) 100 mcg tablet, Take 100 mcg by mouth every morn ing (before breakfast)., Disp: , Rfl: omeprazole (PRILOSEC) 40 MG capsule, Take 40 mg by mouth every morning (before break)., Disp: , Rfl: propranolol (INDERAL) 20 MG tablet, Take 20 mg by mouth 2 times daily. Patient states only taking one in the morning, Disp: , Rfl: simethicone (MYLICON) 80 mg [...] PF QUAD(PED/ADOL/ADULT),PSKT or VIAL 01/21/2014, 02/09/2015, 02/05/2016 INFLUENZA, UNSPECIFIED FORMULATION 03/01/2017 PNEUMOCOCCAL POLYSACCHARIDE 23-VALENT (PPSV23) 12/20/2005 PPD Test 11/02/2010 Objective BP 128/78 | Pulse 88 | Temp 36.9 C (98.5 F) (Temporal) | Ht 1.651 m (5' 5") | Wt 12 0.2 kg (264 lb 15.9 oz) | SpO2 97% | BMI 44.10 kg/m Appearance: Alert, cooperative, no distress, appears stated age. Head: Normocephalic, without obvious abnormality, atraumatic. Eyes: PERRL, conjunctiva/corneas clear. Nose: Nares normal, septum midline, mucosa normal, no drainage or sinus tenderness. Throat: Lips, mucosa, and tongue normal. Teeth/dentures normal. No thrush. Neck: Supple, symmetrical, no JVD. Lungs: No accessory muscle use, breath sounds are clear to auscultation bilaterally, no w heezes, crackles or rhonchi. No dullness to percussion. Chest Wall: No tenderness or deformity. Heart: Regular rate and rhythm, S1, S2 normal, no murmur, rub or gallop. Extremities: Extremities normal, atraumatic, no cyanosis, clubbing. none edema. Skin: Warm and dry. Lymph nodes: Cervical and supraclavicular nodes normal. Neurologic: Gait normal. Data: None Assessment 1. Asthma likely mild persistent. Status post an asthma exacerbation approximate 3 week s ago. The patient's symptoms markedly improved with a prednisone taper. She is currently using Qvar 80 g per puff, 2 puffs twice a day. It is reasonable to lower the patient's dose of Qvar. Time will tell the minimum dose that will adequately control her symptoms. Svitlana is in need of a Prevnar 13. In 12 months she will be due a Pneumovax booster. Plan 1. Decrease Qvar to 80 g per puff, 2 puffs once a day. 2. Prevnar 13 today. 3. Seasonal influenza vaccination January 2018. 4. Pulmonary clinic follow-up appointment in 6 months time. CC: Morgan Conner, DO Tdocumented in this encounter Plan of Treatment Not on filedocumented as of this encounter Visit Diagnoses + + | Diagnosis | + + | Mild persistent asthma without complication - Primary Unspecified asthma | + + | Need for pneumococcal vaccine Need for prophylactic vaccination against streptococcus | | pneumoniae (pneumococcus) | + + documented in this encounter
--- OUTSIDE RECORDS SUMMARY | ~2019-03-21 | XMS | Clinical Summary ---
Demographics + + + | Address | [address] | | | [place] [address] | + + + | Home Phone | | + + + | Preferred Language | Unknown | + + + | Marital Status | | + + + | Restorationism Affiliation | Unknown | + + + | Race | Unknown | + + + | Ethnic Group | Unknown | + + + Author + + + | Author | [facility] | | | and [place] | + + + | Organization | [facility] | | | and [place] | [...] Team Providers + +------+ + | Care Treating Engineer Name | Role | Phone | + +------+ + | Sri RazoP | PCP | | + +------+ + Allergies No Known Allergies Medications + + + +---------+------+------+-------+ | Medication | Sig | Dispensed | Refills | Star | End | Statu | | | | | | t | Date | s | | | | | | Date | | | + + + +---------+------+------+-------+ | fexofenadine | Take 180 mg by mouth | | 0 | 09/1 | | Activ | | (JELANI) 180 mg | Daily as needed. | | | 3/20 | | e | | tablet | | | | 12 | | | + + + +---------+------+------+-------+ | spironolactone | Take 100 mg by mouth | | 0 | 09/1 | | Activ | | (ALDACTONE) 100 MG | Daily. | | | 3/20 | | e | | tablet | | | | 12 | | | + + + +---------+------+------+-------+ | levothyroxine | Take 100 mcg by | | 0 | 02/1 | | Activ | | (SYNTHROID, | mouth every morning | | | 2/20 | | e | | LEVOTHROID) 100 mcg | (before breakfast). | | | 16 | | | | tablet | | | | | | | + + + +---------+------+------+-------+ | omeprazole | Take 40 mg by mouth | | 0 | 02/1 | | Activ | | (PRILOSEC) 40 MG | every morning | | | 2/20 | | e | | capsule | (before breakfast). | | | 16 | | | + + + +---------+------+------+-------+ | tolterodine | Take 4 mg by mouth | | 0 | 07/2 | | Activ | | (DETROL LA) 4 MG 24 | Daily. | | | 7/20 | | e | | hr capsule | | | | 16 | | | + + + +---------+------+------+-------+ | zolpidem (AMBIEN) | Take 5 mg by mouth | | 0 | 07/0 | | Activ | | 5 mg tablet | nightly as needed. | | | 6/20 | | e | | | | | | 16 | | | + + + +---------+------+------+-------+ | propranolol | Take 20 mg by mouth | | 0 | | | Activ | | (INDERAL) 20 MG | 2 times daily. | | | | | e | | tablet | Patient states only | | | | | | | | taking one in the | | | | | | | | morning | | | | | | + + + +---------+------+------+-------+ | simethicone | Take 160 mg by mouth | | 0 | | | Activ | | (MYLICON) 80 mg | as needed for | | | | | e | | chewable tablet | Flatulence. | | | | | | + + + +---------+------+------+-------+ | azaTHIOprine | Take 25 mg by mouth | | 0 | | | Activ | | (IMURAN) 50 mg | Daily. | | | | | e | | tablet | | | | | | | + + + +---------+------+------+-------+ | furosemide (LASIX) | | | 0 | 04/2 | | Activ | | 80 mg tablet | | | | 3/20 | | e | | | | | | 18 | | | + + + +---------+------+------+-------+ | albuterol (PROAIR | Inhale 2 puffs into | | 0 | | | Activ | | HFA) 90 mcg/puff | the lungs every 4 | | | | | e | | inhaler | hours as needed for | | | | | | | | Wheezing or | | | | | | | | Shortness of Breath. | | | | | | + + + +---------+------+------+-------+ | beclomethasone | Inhale 2 puffs into | 1 | 5 | 06/2 | | Activ | | (QVAR) 80 mcg/puff | the lungs Daily. | Inhaler | | 1/20 | | e | | inhalerIndications: | | | | 18 | | | | Mild persistent | | | | | | | | asthma without | | | | | | | | complication | | | | | | | + + + +---------+------+------+-------+ | methylPREDNISolone | Follow package | 21 | 0 | 07/1 | | Activ | | (MEDROL DOSEPAK) 4 | directions. | tablet | | 0/20 | | e | | mg tablet | | | | 18 | | | + + + +---------+------+------+-------+ | diphenhydrAMINE | Take 1 tablet by | 30 | 0 | 07/1 | | Activ | | (BENADRYL) 50 MG | mouth every 6 hours | tablet | | 0/20 | | e | | tablet | as needed for | | | 18 | | | | | Itching (swelling) | | | | | | | | for up to 30 doses. | | | | | | + + + +---------+------+------+-------+ | rifAXIMin | Take 550 mg by | | 0 | | | Activ | | (XIFAXAN) 550 mg | mouth. | | | | | e | | TABS | | | | | | | + + + +---------+------+------+-------+ | spironolactone | Take 3 tablets by | | 0 | 04/0 | | Activ | | (ALDACTONE) 100 MG | mouth once daily. | | | 1/20 | | e | | tablet | | | | 19 | | | + + + +---------+------+------+-------+ | omeprazole | Take 40 mg by mouth | | 0 | | | Activ | | (PRILOSEC) 40 MG | before breakfast. | | | | | e | | capsule | | | | | | | + + + +---------+------+------+-------+ | furosemide (LASIX) | Take 80 mg by mouth | | 0 | | | Activ | | 80 mg tablet | once daily. | | | | | e | + + + +---------+------+------+-------+ | albuterol | Inhale by mouth. | | 0 | | | Activ | | (PROVENTIL HFA) 90 | | | | | | e | | mcg/puff inhaler | | | | | | | + + + +---------+------+------+-------+ | midodrine | Take 10 mg by mouth | | 0 | | | Activ | | (PROAMATINE) 10 MG | three times daily. | | | | | e | | tablet | Administer doses in | | | | | | | | 3-4 hour intervals. | | | | | | | | Avoid dosing after | | | | | | | | the evening meal or | | | | | | | | within 4 hours of | | | | | | | | bedtime. | | | | | | + + + +---------+------+------+-------+ | lactulose 10 g/15 | Take 30 mL by mouth | | 0 | | | Activ | | mL solution | two times daily. | | | | | e | + + + +---------+------+------+-------+ | oxyCODONE | Take 1 tablet by | 6 | 0 | 03/01 | 03/01 | Expir | | (ROXICODONE) 5 mg | mouth every 8 hours | tablet | | 09/17 | 11/17 | ed | | tablet | as needed for Pain | | | 19 | 19 | | | | for up to 2 days. | | | | | | + + + +---------+------+------+-------+ Active Problems + + + | Problem | Noted Date | + + + | Bladder spasms | 02/17/2018 | + + + | Electrolyte abnormality | 02/17/2018 | + + + | Pneumatosis coli | 2018 | + + + | Mild persistent asthma without complication | 10/19/2017 | + + + | Carpal tunnel syndrome on right | 10/14/2015 | + + + | Ascites | 09/29/2014 | + + + | Esophageal varices without bleeding | 09/29/2014 | + + + | Acquired spondylolisthesis | 03/06/2012 | + + + | Cervical spondylosis without myelopathy | 03/06/2012 | + + + | ANOSMIA | 06/01/2011 | + + + | Absent sense of smell | 06/01/2011 | + + + | Autoimmune hepatitis | 09/18/2009 | + + + | Hepatic cirrhosis | 09/18/2009 | + + + + + | Overview: Overview: | | ICD10 | + + + + + | Autoimmune disease | 11/10/2006 | + + + Resolved Problems + + + + | Problem | Noted | Resolved | | | Date | Date | + + + + | Mild persistent asthma with acute exacerbation | 09/23/19 | | | | 18 | 8 | + + + + | Mild intermittent asthma without complication | 02/29/20 | | | | 17 | 8 | + + + + | Dysphonia | 06/01/19 | | | | 12 | 7 | + + + + Encounters +--------+ + + + + | Date | Type | Specialty | Care Team | Description | +--------+ + + + + | 03/15/ | Emergency | Emergency Medicine | Jeffrey Augustin | Lymphedema (Primary | | 2018 | | | MD Anjum | Dx) | +--------+ + + + + | 01/31/ | Emergency | Emergency Medicine | Reza Wynn, | Other ascites | | 2018 - | | | | (Primary Dx); | | | | | | Generalized | | 02/01/ | | | | abdominal pain; | | 2018 | | | | Autoimmune hepatitis | | | | | | (HCC) | +--------+ + + + + | 01/13/ | Emergency | Emergency Medicine | Ronald Kasper MD | Other ascites | | 2018 | | | | (Primary Dx); | | | | | | Abdominal pain, | | | | | | unspecified | | | | | | abdominal location | +--------+ + + + + from Last 3 Months Immunizations + + + + | Name | Administration Dates | Next Due | + + + + | INFLUENZA PF | 02/05/2016, 02/09/2015, 01/21/2014 | | | QUAD(PED/ADOL/ADULT) | | | | ,PSKT or VIAL | | | + + + + | INFLUENZA, | 03/01/2017 | | | UNSPECIFIED | | | | FORMULATION | | | + + + + | PNEUMOCOCCAL | 10/19/2017 | | | CONJUGATE 13-VALENT | | | | (PCV13) | | | + + + + | PNEUMOCOCCAL | 12/20/2005 | | | POLYSACCHARIDE | | | | 23-VALENT (PPSV23) | | | + + + + | PPD Test | 11/02/2010 | | + + + + Family History + + +------+ + | Medical History | Relation | Name | Comments | + + +------+ + | Diabetes | Brother | | | + + +------+ + | Kidney disease | Brother | | on chronic HD | + + +------+ + | Hypertension | Brother | | | + + +------+ + | Diabetes | Brother | | | + + +------+ + | Other (see comment) | Father | | in accident | + + +------+ + | Cirrhosis | Mother | | Etoh | + + +------+ + + +------+ + + | Relation | Name | Status | Comments | + +------+ + + | Brother | | Alive | | + +------+ + + | Brother | | Alive | | + +------+ + + | Brother | | Alive | | + +------+ + + | Father | | | COD: Hit by vehicle | + +------+ + + | Mother | | | | + +------+ + + Social History + +-------+ +--------+------+ [...] recent travel history available. | + + Last Filed Vital Signs + + + + + | Vital Sign | Reading | Time Taken | Comments | + + + + + | Blood Pressure | 112/63 | 03/15/2019 9:15 PM | | | | | PST | | + + + + + | Pulse | 94 | 03/15/2019 9:15 PM | | | | | PST | | + + + + + | Temperature | 37.4 C (99.4 F) | 03/15/2019 5:53 PM | | | | | PST | | + + + + + | Respiratory Rate | 14 | 03/15/2019 9:15 PM | | | | | PST | | + + + + + | Oxygen Saturation | 100% | 03/15/2019 9:15 PM | | | | | PST | | + + + + + | Inhaled Oxygen | - | - | | | Concentration | | | | + + + + + | Weight | 92.5 kg (204 lb) | 03/15/2019 5:53 PM | | | | | PST | | + + + + + | Height | 157.5 cm (5' 2") | 03/15/2019 5:53 PM | | | | | PST | | + + + + + | Body Mass Index | 37.31 | 03/15/2019 5:53 PM | | | | | PST | | + + + + + Plan of Treatment + + + + + | Health Maintenance | Due Date | Last Done | Comments | + + + + + | Colorectal Cancer | | | | | Screening | 4 | | | | (Colonoscopy) | | | | + + + + + | Vaccine: Zoster (1 | | | | | of 2) | 4 | | | + + + + + | Breast Cancer | | | | | Screening | 9 | | | + + + + + | Adult Annual | | | | | Wellness Visit | 5 | | | + + + + + | Vaccine: | | 10/19/2017, 12/20/2005 | | | Pneumococcal 65+ (2 | 9 | | | | of 2 - PPSV23) | | | | + + + + + | Vaccine: | | 02/10/2010 | | | Dtap/Tdap/Td (2 - | 0 | | | | Td) | | | | + + + + + | Hepatitis C | Completed | 08/15/2003 | | | Screening | | | | + + + + + | Vaccine: Influenza | Completed | 02/14/2019, 03/01/2017, | | | | | 03/01/2017, Additional history | | | | | exists | | + + + + + Procedures + +--------+ + + + | Procedure Name | Priori | Date/Time | Associated Diagnosis | Comments | | | ty | | | | + +--------+ + + + | EXTRA BLUE TOP TUBE | Routin | 03/15/2019 | | Results for this | | | e | 7:59 PM | | procedure are in the | | | | PST | | results section. | + +--------+ + + + | B TYPE NATRIURETIC | STAT | 03/15/2019 | | Results for this | | PEPTIDE | | 7:59 PM | | procedure are in the | | | | PST | | results section. | + +--------+ + + + | COMPREHENSIVE | STAT | 03/15/2019 | | Results for this | | METABOLIC PANEL | | 7:59 PM | | procedure are in the | | | | PST | | results section. | + +--------+ + + + | CBC WITH | STAT | 03/15/2019 | | Results for this | | DIFFERENTIAL | | 7:59 PM | | procedure are in the | | | | PST | | results section. | + +--------+ + + + | VAS LOWER EXTREMITY | STAT | 03/15/2019 | | Results for this | | VENOUS BILATERAL | | 7:37 PM | | procedure are in the | | | | PST | | results section. | + +--------+ + + + | ED INFORMATION | Routin | 03/15/2019 | | | | EXCHANGE | e | 5:50 PM | | | | | | PST | | | + +--------+ + + + +---+--------+ | | | | | Proced | | | ure | | | Note - | | | Vitaly, | | | Lab In | | | | | | Hlseve | | | n - | | | | | | 2018 | | | 5:51 | | | PM PST | | | | | | Format | | | ting | | | of | | | this | | | note | | | might | | | be | | | differ | | | ent | | | from | | | the | | | origin | | | al.COL | | | LECTIV | | | E?NOTI | | | FICATI | | | ON?11/ | | | 15/201 | | | 9 | | | 17:50? | | | HOPTOW | | | IT, | | | MARISOL | | | INE?MR | | | N: | | | [id number] | | | [id number] | | | riteri | | | a Met | | | Care | | | Guidel | | | ernestine | | | 3 | | | Facili | | | ties | | | in | | | 60Secu | | | rity | | | and | | | Safety | | | No | | | recent | | | | | | Securi | | | ty | | | Events | | | | | | curren | | | tly on | | | | | | fileED | | | Care | | | Guidel | | | inesTh | | | ere | | | are | | | curren | | | tly no | | | ED | | | Care | | | Guidel | | | ernestine | | | for | | | this | | | patien | | | t. | | | Please | | | check | | | your | | | facili | | | ty's | | | medica | | | l | | | record | | | s | | | system | | | .Care | | | Histor | | | yMedic | | | al/Gege | | | [email or web address] | | | /10/19 | | | 12:00 | | | AM | | | [facility] | | [facility] | | | al | | | PATIEN | | | T IS | | | CURREN | | | TLY | | | WORKIN | | | G WITH | | | RN | | | CASE | | | MANAGE | | | R | | | MANUEL- | | | YELLOW | | | HAWK. | | | MANUEL | | | MEETS | | | WITH | | | PATIEN | | | T ONCE | | | A | | | WEEK. | | | | | | PATIEN | | | T | | | CHOOSE | | | S AT | | | TIMES | | | TO BE | | | NON | | | COMPLI | | | ANT | | | WITH | | | MEDICA | | | TIONS. | | | | | | MANUEL | | | RN | | | CASE | | | MANAGE | | | R- IS | | | FOLLOW | | | ING UP | | | WITH | | | PATIEN | | | T | | | CLOSEL | | | Y.1/17 | | | /19 | | | 12:00 | | | AM | | | [facility] | | | [facility] | | | al | | | CHW | | | CONTAC | | | GAYLE | | | WENDY | | | AT | | | YELLOW | | | HAWK | | | RN CM- | | | THEY | | | HAVE | | | BEEN | | | DISCUS | | | SING | | | PATIEN | | | T CARE | | | WITH | | | PCP. | | | PATIEN | | | T DOES | | | HAVE | | | A | | | GASTRO | | | ENTERO | | | LOGIST | | | WHO | | | IS | | | BEING | | | SEEN | | | OUTSID | | | E OF | | | THE | | | YELLOW | | | HAWK | | | NETWOR | | | K. | | | PATIEN | | | T PCP | | | IS | | | AWARE | | | OF | | | PATIEN | | | T | | | CURREN | | | T | | | MEDICA | | | L | | | CONDIT | | | IONS.1 | | | 1/14/1 | | | 8 | | | 12:00 | | | AM | | | [facility] | | [facility] | | | al | | | PER | | | PCP | | | OFFICE | | | - | | | PATIEN | | | T HAS | | | NOT | | | FOLLOW | | | ED UP | | | WITH | | | PCP | | | AFTER | | | DISCHA | | | RGE | | | FROM | | | HOSPIT | | | AL ON | | | 10/08/ | | | 18. | | | PATIEN | | | T IS | | | NOT | | | FOLLOW | | | ING UP | | | AND | | | OR | | | UTILIZ | | | ING | | | MENTAL | | | | | | HEALTH | | | | | | SERVIC | | | ES | | | THROUG | | | H | | | [facility] | | | YS.Pre | | | script | | | ion | | | Drug | | | Report | | | (12 | | | Mo.)PD | | | MP | | | query | | | found | | | no | | | report | | | .E.D. | | | Visit | | | Count | | | (12 | | | mo.)Fa | | | cility | | | | | | Visits | | | Low | | | [facility] | | | | | | [place] | | | | | | [facility] | | | and | | | Scienc | | | e | | | Univer | | | sity 1 | | | 0 | | | [facility] | | | | | | [facility] | | | al | | | Medica | | | l | | | Center | | | 1 0 | | | Provid | | | ence | | | St. | | | [facility] | | | Medica | | | l | | | Center | | | 3 0 | | | [facility] | [facility] | | | [facility] | | | al 9 0 | | | Total | | | 14 0 | | | Note: | | | Visits | | | | | | indica | | | te | | | total | | | known | | | visits | | | . | | | Medica | | | id Low | | | | | | [facility] | | | Dx | | | are | | | the | | | number | | | of | | | primar | | | y | | | diagno | | | ses on | | | the | | | Medica | | | id's | | | Low | | | [facility] | | | dx | | | list. | | | | | | Recent | | | | | | Emerge | | | ncy | | | Depart | | | ment | | | Visit | | | [facility] | | | yShowi | | | ng 10 | | | most | | | recent | | | | | | visits | | | out | | | of 14 | | | in the | | | past | | | 12 | | | months | | | Date | | | Facili | | | ty | | | City | | | State | | | Type | | | Diagno | | | ses or | | | Chief | | | | | | Compla | | | int | | | Nov | | | 15, | | | 2019 | | | Provid | | | ence | | | [facility] | | | [facility] | | | [place] | | | [place] | | | Emerge | | | ncy | | | Right | | | Leg | | | Pain | | | Oct 3, | | | 2019 | | | [facility] | | | | | | Region | | | al | | | [facility] | | | [place] | | | [place] | | | Emerge | | | ncy | | | | | | Abdomi | | | nal | | | Pain | | | | | | Other | | | ascite | | | s | | | Genera | | | lized | | | abdomi | | | nal | | | pain | | | | | | Autoim | | | mune | | | hepati | | | tis | | | Sep | | | 27, | | | 2019 | | | [place] | | | | | | Health | | | and | | | Scienc | | | e | | | Univer | | | sity | | | [place] | | | [place] | | | Emerge | | | ncy | | | | | | 10,800 | | | . | | | ABDOMI | | | NAL | | | PAIN | | | | | | 18,400 | | | . | | | Other | | | cirrho | | | sis of | | | liver | | | | | | 18,400 | | | . | | | Unspec | | | ified | | | abdomi | | | nal | | | pain | | | | | | 18,400 | | | . | | | Consti | | | pation | | | , | | | unspec | | | ified | | | Sep | | | 15, | | | 2019 | | | Prov[facility] | | | ence | | | [facility] | | [facility] | | | [place] | | | [place] | | | Emerge | | | ncy | | | Abd | | | pain | | | | | | Abdomi | | | nal | | | Pain | | | | | | Other | | | ascite | | | s | | | Unspec | | | ified | | | abdomi | | | nal | | | pain | | | Sep 6, | | | 2019 | | | [facility] | | | [facility] | | | [place] | | | [place] | | | Emerge | | | ncy | | | Chief | | | Compla | | | int: | | | SHAKY | | | Sep | | | 1, | | | 2019 | | | [facility] | | | [facility] | | | [place] | | | [place] | | | Emerge | | | ncy | | | Pain | | | in | | | left | | | foot | | | | | | Striki | | | ng | | | agains | | | t or | | | struck | | | by | | | other | | | object | | | s, | | | init | | | encntr | | | | | | Other | | | long | | | term | | | (curre | | | nt) | | | drug | | | therap | | | y | | | Contus | | | ion of | | | left | | | foot, | | | initia | | | l | | | encoun | | | ter | | | Stephan 8, | | | 2019 | | | [facility] | | | [facility] | | | [place] | | | [place] | | | Emerge | | | ncy | | | | | | Unspec | | | ified | | | abdomi | | | nal | | | pain | | | | | | Unspec | | | ified | | | cirrho | | | sis of | | | liver | | | | | | Other | | | long | | | term | | | (curre | | | nt) | | | drug | | | therap | | | y Stephan | | | 4, | | | 2019 | | | Prov[facility] | | | ence | | | St[facility] | | | [facility] | | | [place] | | | [place] | | | Emerge | | | ncy | | | abd | | | pain | | | | | | Abdomi | | | nal | | | Pain | | | | | | Other | | | ascite | | | s Jamel | | | 15, | | | 2019 | | | [facility] | | | [facility] | | | [place] | | | [place] | | | Emerge | | | ncy | | | | | | Unspec | | | ified | | | abdomi | | | nal | | | pain | | | | | | Other | | | long | | | term | | | (curre | | | nt) | | | drug | | | therap | | | y | | | Other | | | ascite | | | s | | | Unspec | | | ified | | | cirrho | | | sis of | | | liver | | | Apr | | | 20, | | | 2019 | | | [facility] | | | [facility] | | | [place] | | | [place] | | | Emerge | | | ncy | | | Chief | | | Compla | | | int: | | | NAUSEA | | | /TREMO | | | RS/ALTAGRACIA | | | RRHEA | | | | | | Recent | | | | | | Inpati | | | ent | | | Visit | | | [facility] | | | yDate | | | Facili | | | ty | | | City | | | State | | | Type | | | Diagno | | | ses or | | | Chief | | | | | | Compla | | | int | | | Oct | | | 16, | | | 2019 | | | [place] | | | | | | Health | | | and | | | Scienc | | | e | | | Univer | | | sity | | | [place] | | | [place] | | | Interv | | | ention | | | al | | | 18,400 | | | . | | | Autoim | | | mune | | | hepati | | | tis | | | | | | 18,400 | | | . | | | Other | | | cirrho | | | sis of | | | liver | | | | | | 18,400 | | | . | | | Presen | | | ce of | | | other | | | vascul | | | ar | | | implan | | | ts and | | | | | | grafts | | | | | | 18,400 | | | . | | | Other | | | ascite | | | s Sep | | | 6, | | | 2019 | | | [facility] | | | [facility] | | | [place] | | | [place] | | | Observ | | | ation | | | | | | Hypo-o | | | smolal | | | ity | | | and | | | hypona | | | tremia | | | | | | Unspec | | | ified | | | cirrho | | | sis of | | | liver | | | | | | Long | | | term | | | (curre | | | nt) | | | use of | | | | | | antibi | | | otics | | | | | | Dizzin | | | ess | | | and | | | giddin | | | ess | | | Other | | | long | | | term | | | (curre | | | nt) | | | drug | | | therap | | | y | | | Hypoth | | | yroidi | | | sm, | | | unspec | | | ified | | | | | | Gastro | | | -esoph | | | ageal | | | reflux | | | | | | diseas | | | e | | | withou | | | t | | | esopha | | | gitis | | | | | | Autoim | | | mune | | | hepati | | | tis | | | | | | Hepati | | | c | | | failur | | | e, | | | unspec | | | ified | | | withou | | | t coma | | | | | | Patien | | | t's | | | other | | | noncom | | | plianc | | | e with | | | | | | medica | | | tion | | | regime | | | n Apr | | | 20, | | | 2019 | | | [facility] | | | [facility] | | | [place] | | | [place] | | | Observ | | | ation | | | | | | Unspec | | | ified | | | abdomi | | | nal | | | pain | | | | | | Advers | | | e | | | effect | | | of | | | loop | | | diuret | | | ics, | | | initia | | | l | | | encoun | | | ter | | | Other | | | | | | ascite | | | s | | | Gastro | | | -esoph | | | ageal | | | reflux | | | | | | diseas | | | e | | | withou | | | t | | | esopha | | | gitis | | | | | | Hypoth | | | yroidi | | | sm, | | | unspec | | | ified | | | | | | Unspec | | | ified | | | cirrho | | | sis of | | | liver | | | | | | Other | | | long | | | term | | | (curre | | | nt) | | | drug | | | therap | | | y | | | Autoim | | | mune | | | hepati | | | tis | | | | | | Nausea | | | | | | Other | | | hypote | | | nsion | | | Care | | | TeamPr | | | ovider | | | | | | Specia | | | lty | | | Phone | | | Fax | | | Servic | | | e | | | Dates | | | PHILIPPE | | | ON, | | | TIMOTH | | | Y , MD | | | | | | 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 | | | al | | | Medici | | | ne: | | | Pulmon | | | shelly | | | Diseas | | | e | | | Curren | | | t | | | QUAEMP | | | TS, | | | LANA M, | | | MD | | | Family | | | | | | Medici | | | ne | | | Nov | | | 13, | | | 2018 - | | | | | | Curren | | | t | | | THURMA | | | N, | | | COLLEE | | | N, | | | 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 | | | | | | [facility] | | | ncy | | | Depart | | | ment | | | For | | | more | | | inform | | | ation | | | visit: | | | | | | https: | | | //secu | | | [email or web address] | | | lectiv | | | emedic | | | [email or web address] | | | /notif | | | [id number] | | | [id number] | | | ddb-[id number] | | | [id number] | | | [id number] | | | [id number] | | | 02 | | | PLEASE | | | NOTE: | | | 1. | | | Any | | | care | | | recomm | | | endati | | | ons | | | and | | | other | | | clinic | | | al | | | inform | | | ation | | | are | | | provid | | | ed as | | | guidel | | | ernestine | | | or for | | | | | | histor | | | ical | | | purpos | | | es | | | only, | | | and | | | provid | | | ers | | | should | | | | | | exerci | | | se | | | their | | | own | | | clinic | | | al | | | judgme | | | nt | | | when | | | provid | | | ing | | | care. | | | 2. | | | You | | | may | | | only | | | use | | | this | | | inform | | | ation | | | for | | | purpos | | | es of | | | treatm | | | ent, | | | paymen | | | t or | | | health | | | care | | | operat | | | ions | | | activi | | | ties, | | | and | | | subjec | | | t to | | | the | | | limita | | | tions | | | of | | | applic | | | able | | | [facility] | | | tive | | | Polici | | | es. | | | 3. | | | You | | | should | | | | | | consul | | | t | | | direct | | | ly | | | with | | | the | | | organi | | | zation | | | that | | | provid | | | ed a | | | care | | | guidel | | | ine or | | | other | | | | | | clinic | | | al | | | histor | | | y with | | | any | | | questi | | | ons | | | about | | | additi | | | onal | | | inform | | | ation | | | or | | | accura | | | cy or | | | comple | | | teness | | | of | | | inform | | | ation | | | provid | | | ed.? | | | 2019 | | | [facility] | | | tive | | | Medica | | | l | | | [employer] | | | logies | | | , [employer] | | | - | | | [email or web address] | | | llecti | | | vemedi | | | [email or web address] | | | m | +---+--------+ + +--------+ +---+ + | ABDOMINAL | Routin | 02/01/2019 | | Results for this | | PARACENTESIS | e | 12:35 AM | | procedure are in the | | | | PDT | | results section. | + +--------+ +---+ + | CELL COUNT, BODY | Routin | 01/31/2019 | | Results for this | | FLUID | e | 11:05 PM | | procedure are in the | | | | PDT | | results section. | + +--------+ +---+ + | CULTURE, BODY FLUID | Routin | 01/31/2019 | | Results for this | | STERILE | e | 11:05 PM | | procedure are in the | | | | PDT | | results section. | + +--------+ +---+ + | URINALYSIS WITH | STAT | 01/31/2019 | | Results for this | | MICROSCOPIC | | 10:30 PM | | procedure are in the | | | | PDT | | results section. | + +--------+ +---+ + | LIPASE | STAT | 01/31/2019 | | Results for this | | | | 9:42 PM | | procedure are in the | | | | PDT | | results section. | + +--------+ +---+ + | COMPREHENSIVE | STAT | 01/31/2019 | | Results for this | | METABOLIC PANEL | | 9:42 PM | | procedure are in the | | | | PDT | | results section. | + +--------+ +---+ + | CBC WITH | STAT | 01/31/2019 | | Results for this | | DIFFERENTIAL | | 9:42 PM | | procedure are in the | | | | PDT | | results section. | + +--------+ +---+ + | ED INFORMATION | Routin | 01/31/2019 | | | | EXCHANGE | e | 7:53 PM | | | | | | PDT | | | + +--------+ +---+ + +---+--------+ | | | | | Proced | | | ure | | | Note - | | | Vitaly, | | | Lab In | | | | | | Hlseve | | | n - | | | 10/03/ | | | 2019 | | | 7:54 | | | PM PDT | | | | | | Format | | | ting | | | of | | | this | | | note | | | might | | | be | | | differ | | | ent | | | from | | | the | | | origin | | | al.COL | | | LECTIV | | | E?NOTI | | | FICATI | | | ON?10/ | | | 03/201 | | | 9 | | | 19:52? | | | HOPTOW | | | IT, | | | YOSELYN? | | | MRN: | | | [id number] | | | [id number] | | | riteri | | | a Met | | | 10 in | | | 12 | | | Care | | | Guidel | | | ernestine | | | 3 in | | | 60Secu | | | rity | | | and | | | Safety | | | No | | | recent | | | | | | Securi | | | ty | | | Events | | | | | | curren | | | tly on | | | | | | fileED | | | Care | | | Guidel | | | inesTh | | | ere | | | are | | | curren | | | tly no | | | ED | | | Care | | | Guidel | | | ernestine | | | for | | | this | | | patien | | | t. | | | Please | | | check | | | your | | | facili | | | ty's | | | medica | | | l | | | record | | | s | | | system | | | .Care | | | Histor | | | yMedic | | | al/Gege | | | [email or web address] | | | /10/19 | | | 12:00 | | | AM | | | [facility] | | | [facility] | | | al | | | PATIEN | | | T IS | | | CURREN | | | TLY | | | WORKIN | | | G WITH | | | RN | | | CASE | | | MANAGE | | | R | | | MANUEL- | | | YELLOW | | | HAWK. | | | MANUEL | | | MEETS | | | WITH | | | PATIEN | | | T ONCE | | | A | | | WEEK. | | | | | | PATIEN | | | T | | | CHOOSE | | | S AT | | | TIMES | | | TO BE | | | NON | | | COMPLI | | | ANT | | | WITH | | | MEDICA | | | TIONS. | | | | | | MANUEL | | | RN | | | CASE | | | MANAGE | | | R- IS | | | FOLLOW | | | ING UP | | | WITH | | | PATIEN | | | T | | | CLOSEL | | | Y.1/17 | | | /19 | | | 12:00 | | | AM | | | [facility] | | | [facility] | | | [facility] | | | al | | | CHW | | | CONTAC | | | GAYLE | | | WENDY | | | AT | | | YELLOW | | | [facility]WK | | | RN CM- | | | THEY | | | HAVE | | | BEEN | | | DISCUS | | | SING | | | PATIEN | | | T CARE | | | WITH | | | PCP. | | | PATIEN | | | T DOES | | | HAVE | | | A | | | GASTRO | | | ENTERO | | | LOGIST | | | WHO | | | IS | | | BEING | | | SEEN | | | OUTSID | | | E OF | | | THE | | | YELLOW | | | HAWK | | | NETWOR | | | K. | | | PATIEN | | | T PCP | | | IS | | | AWARE | | | OF | | | PATIEN | | | T | | | CURREN | | | T | | | MEDICA | | | L | | | CONDIT | | | IONS.1 | | | /14/ | | | 8 | | | 12:00 | | | AM | | | [facility] | [facility] | | | [facility] | | | al | | | PER | | | PCP | | | OFFICE | | | - | | | PATIEN | | | T HAS | | | NOT | | | FOLLOW | | | ED UP | | | WITH | | | PCP | | | AFTER | | | DISCHA | | | RGE | | | FROM | | | HOSPIT | | | AL ON | | | 10/08/ | | | 18. | | | PATIEN | | | T IS | | | NOT | | | FOLLOW | | | ING UP | | | AND | | | [place] | | | UTILIZ | | | ING | | | MENTAL | | | | | | HEALTH | | | | | | SERVIC | | | ES | | | THROUG | | | H | | | [facility] | | | YS.Pre | | | script | | | ion | | | Drug | | | Report | | | (12 | | | Mo.)Rx | | | | | | Detail | | | sFill | | | Date | | | Drug | | | Descri | | | ption | | | Qty. | | | Prescr | | | iber | | | CS MED | | | | | | 2018-1 | | | 1-27 | | | OXYCOD | | | ONE | | | HCL 5 | | | MG | | | TABLET | | | 30 | | | BOB | | | WALKER | | | 2 75 | | | Rx | | | [facility] | | | yMetri | | | c | | | Count | | | CS | | | II-V | | | Rx 1 | | | CS-II | | | Rx 1 | | | Quanti | | | ty | | | Dispen | | | sed 30 | | | | | | Unique | | | | | | Prescr | | | ibers | | | 1 | | | Unique | | | | | | Pharma | | | cies 1 | | | | | | Benzos | | | 0 | | | Opioid | | | s 1 | | | Long | | | Acting | | | | | | Opioid | | | s 0 | | | E.D. | | | Visit | | | Count | | | (12 | | | mo.)Fa | | | cility | | | | | | Visits | | | Low | | | [facility] | | | | | | [place] | | | | | | [facility] | | | and | | | Scienc | | | e | | | Univer | | | sity 1 | | | 0 | | | [facility] | | | | | | Region | | | al | | | Medica | | | l | | | Center | | | 1 0 | | | Provid | | | ence | | | St. | | | [facility] | | | Medica | | | l | | | Center | | | 2 0 | | | [facility] | | | y | | | Hospit | | | al 11 | | | 0 | | | Total | | | 15 0 | | | Note: | | | Visits | | | | | | indica | | | te | | | total | | | known | | | visits | | | . | | | Medica | | | id Low | | | | | | Acuity | | | Dx | | | are | | | the | | | number | | | of | | | primar | | | y | | | diagno | | | ses on | | | the | | | Medica | | | id's | | | Low | | | Acuity | | | dx | | | list. | | | | | | Recent | | | | | | Emerge | | | ncy | | | Depart | | | ment | | | Visit | | | [facility] | | | yShowi | | | ng 10 | | | most | | | recent | | | | | | visits | | | out | | | of 15 | | | in the | | | past | | | 12 | | | months | | | Date | | | Facili | | | ty | | | City | | | State | | | Type | | | Diagno | | | ses or | | | Chief | | | | | | Compla | | | int | | | Oct 3, | | | 2019 | | | [facility] | | | | | | [facility] | | | al | | | [facility] | | | [place] | | | [place] | | | Emerge | | | ncy | | | | | | Abdomi | | | nal | | | Pain | | | Sep | | | 27, | | | 2019 | | | [place] | | | | | | Health | | | and | | | Scienc | | | e | | | Univer | | | sity | | | [place] | | | [place] | | | Emerge | | | ncy | | | | | | 10,800 | | | . | | | ABDOMI | | | NAL | | | PAIN | | | | | | 18,400 | | | . | | | Other | | | cirrho | | | sis of | | | liver | | | | | | 18,400 | | | . | | | Unspec | | | ified | | | abdomi | | | nal | | | pain | | | | | | 18,400 | | | . | | | Consti | | | pation | | | , | | | unspec | | | ified | | | Sep | | | 15, | | | 2019 | | | Provid | | | ence | | | St[facility] | | | [facility] | | | [place] | | | [place] | | | Emerge | | | ncy | | | Abd | | | pain | | | | | | Abdomi | | | nal | | | Pain | | | | | | Other | | | ascite | | | s | | | Unspec | | | ified | | | abdomi | | | nal | | | pain | | | Sep 6, | | | 2019 | | | [facility] | | | [facility] | | | [place] | | | [place] | | | Emerge | | | ncy | | | Chief | | | Compla | | | int: | | | SHAKY | | | Sep | | | 1, | | | 2019 | | | [facility] | | | [facility] | | | [place] | | | [place] | | | Emerge | | | ncy | | | Pain | | | in | | | left | | | foot | | | | | | Striki | | | ng | | | agains | | | t or | | | struck | | | by | | | other | | | object | | | s, | | | initia | | | l | | | encoun | | | ter | | | Other | | | long | | | term | | | (curre | | | nt) | | | drug | | | therap | | | y | | | Contus | | | ion of | | | left | | | foot, | | | initia | | | l | | | encoun | | | ter | | | Stephan 8, | | | 2019 | | | [facility] | | | [facility] | | | [place] | | | [place] | | | Emerge | | | ncy | | | | | | Unspec | | | ified | | | abdomi | | | nal | | | pain | | | | | | Unspec | | | ified | | | cirrho | | | sis of | | | liver | | | | | | Other | | | long | | | term | | | (curre | | | nt) | | | drug | | | therap | | | y Stephan | | | 4, | | | 2019 | | | Provid | | | ence | | | St[facility] | | | [facility] | | | [place] | | | [place] | | | Emerge | | | ncy | | | abd | | | pain | | | | | | Abdomi | | | nal | | | Pain | | | | | | Other | | | ascite | | | s Jamel | | | 15, | | | 2019 | | | [facility] | | | [facility] | | | [place] | | | [place] | | | Emerge | | | ncy | | | | | | Unspec | | | ified | | | abdomi | | | nal | | | pain | | | | | | Other | | | long | | | term | | | (curre | | | nt) | | | drug | | | therap | | | y | | | Other | | | ascite | | | s | | | Unspec | | | ified | | | cirrho | | | sis of | | | liver | | | Apr | | | 20, | | | 2019 | | | [facility] | | | [facility] | | | [place] | | | [place] | | | Emerge | | | ncy | | | Chief | | | Compla | | | int: | | | NAUSEA | | | /TREMO | | | RS/ALTAGRACIA | | | RRHEA | | | Mar | | | 25, | | | 2019 | | | [facility] | | | [facility] | | | [place] | | | [place] | | | Emerge | | | ncy | | | Other | | | long | | | term | | | (curre | | | nt) | | | drug | | | therap | | | y | | | Perium | | | bilica | | | l pain | | | | | | Acquir | | | ed | | | absenc | | | e of | | | other | | | specif | | | ied | | | parts | | | of | | | digest | | | wes | | | tract | | | | | | Hypoth | | | yroidi | | | sm, | | | unspec | | | ified | | | | | | Unspec | | | ified | | | cirrho | | | sis of | | | liver | | | | | | Acquir | | | ed | | | absenc | | | e of | | | both | | | cervix | | | and | | | uterus | | | | | | Recent | | | | | | Inpati | | | ent | | | Visit | | | [facility] | | | yDate | | | Facili | | | ty | | | City | | | State | | | Type | | | Diagno | | | ses or | | | Chief | | | | | | Compla | | | int | | | Sep 6, | | | 2019 | | | [facility] | | | [facility] | | | [place] | | | [place] | | | Observ | | | ation | | | | | | Hypo-o | | | smolal | | | ity | | | and | | | hypona | | | tremia | | | | | | Unspec | | | ified | | | cirrho | | | sis of | | | liver | | | | | | Long | | | term | | | (curre | | | nt) | | | use of | | | | | | antibi | | | otics | | | | | | Dizzin | | | ess | | | and | | | giddin | | | ess | | | Other | | | long | | | term | | | (curre | | | nt) | | | drug | | | therap | | | y | | | Hypoth | | | yroidi | | | sm, | | | unspec | | | ified | | | | | | Gastro | | | -esoph | | | ageal | | | reflux | | | | | | diseas | | | e | | | withou | | | t | | | esopha | | | gitis | | | | | | Autoim | | | mune | | | hepati | | | tis | | | | | | Hepati | | | c | | | failur | | | e, | | | unspec | | | ified | | | withou | | | t coma | | | | | | Patien | | | t's | | | other | | | noncom | | | plianc | | | e with | | | | | | medica | | | tion | | | regime | | | n Apr | | | 20, | | | 2019 | | | [facility] | | | [facility] | | | [place] | | | [place] | | | Observ | | | ation | | | | | | Unspec | | | ified | | | abdomi | | | nal | | | pain | | | | | | Advers | | | e | | | effect | | | of | | | loop | | | [high- | | | ceilin | | | g] | | | diuret | | | ics, | | | initia | | | l | | | encoun | | | ter | | | Other | | | | | | ascite | | | s | | | Gastro | | | -esoph | | | ageal | | | reflux | | | | | | diseas | | | e | | | withou | | | t | | | esopha | | | gitis | | | | | | Hypoth | | | yroidi | | | sm, | | | unspec | | | ified | | | | | | Unspec | | | ified | | | cirrho | | | sis of | | | liver | | | | | | Other | | | long | | | term | | | (curre | | | nt) | | | drug | | | therap | | | y | | | Autoim | | | mune | | | hepati | | | tis | | | | | | Nausea | | | | | | Other | | | hypote | | | nsion | | | Oct | | | 19, | | | 2018 | | | [place] | | | | | | Health | | | and | | | Scienc | | | e | | | Univer | | | sity | | | [place] | | | [place] | | | Critic | | | al | | | Care | | | | | | 10,150 | | | . | | | Hepati | | | c | | | failur | | | e, | | | unspec | | | ified | | | withou | | | t coma | | | | | | 18,400 | | | . | | | Other | | | specif | | | ied | | | diseas | | | es of | | | intest | | | ine | | | | | | 18,400 | | | . | | | Other | | | specif | | | ied | | | disord | | | ers of | | | | | | bladde | | | r | | | 18,400 | | | . | | | Spondy | | | losis | | | withou | | | t | | | myelop | | | athy | | | or | | | radicu | | | lopath | | | y, | | | cervic | | | al | | | region | | | | | | 18,400 | | | . | | | Autoim | | | mune | | | hepati | | | tis | | | | | | 18,400 | | | . | | | Hypoth | | | yroidi | | | sm, | | | unspec | | | ified | | | | | | 18,400 | | | . | | | Gastri | | | tis, | | | unspec | | | ified, | | | | | | withou | | | t | | | bleedi | | | ng | | | 18,400 | | | . | | | Wedge | | | compre | | | ssion | | | fractu | | | re of | | | first | | | lumbar | | | | | | verteb | | | ra, | | | subseq | | | uent | | | encoun | | | ter | | | for | | | fractu | | | re | | | with | | | routin | | | e | | | healin | | | g | | | 18,400 | | | . | | | Other | | | disord | | | ers of | | | | | | electr | | | olyte | | | and | | | fluid | | | balanc | | | e, not | | | | | | elsewh | | | ere | | | classi | | | fied | | | Oct | | | 17, | | | 2018 | | | [facility] | | | [facility] | | | [place] | | | [place] | | | Medica | | | l | | | Surgic | | | al | | | Hepati | | | c | | | failur | | | e, | | | unspec | | | ified | | | withou | | | t coma | | | | | | Other | | | specif | | | ied | | | bacter | | | ial | | | intest | | | inal | | | infect | | | ions | | | | | | Dehydr | | | ation | | | | | | Hypoth | | | yroidi | | | sm, | | | unspec | | | ified | | | | | | Advers | | | e | | | effect | | | of | | | benzod | | | iazepi | | | sallie, | | | initia | | | l | | | encoun | | | ter | | | | | | Gastri | | | tis, | | | unspec | | | ified, | | | | | | withou | | | t | | | bleedi | | | ng | | | Autoim | | | mune | | | hepati | | | tis | | | Other | | | | | | osteop | | | orosis | | | with | | | curren | | | t | | | pathol | | | ogical | | | | | | fractu | | | re, | | | verteb | | | ra(e), | | | | | | initia | | | l | | | encoun | | | ter | | | for | | | fractu | | | re | | | Care | | | TeamPr | | | ovider | | | | | | Specia | | | lty | | | Phone | | | Fax | | | Servic | | | e | | | Dates | | | PHILIPPE | | | ON, | | | TIMOTH | | | Y , MD | | | | | | 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 | | | al | | | Medici | | | ne: | | | Pulmon | | | shelly | | | Diseas | | | e | | | Curren | | | t | | | QUAEMP | | | TS, | | | LANA M, | | | MD | | | Family | | | | | | Medici | | | ne | | | Nov | | | 13, | | | 2018 - | | | | | | Curren | | | t | | | THURMA | | | N, | | | COLLEE | | | N, | | | 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 | | | Nurse | | | Practi | | | tioner | | | (817) | | | | | | [phone] | | | 66 | | | Stephan 9, | | | 2019 | | | - | | | Curren | | | t | | | [facility] | | | Y | | | [facility] | | | ON | | | Primar | | | y Care | | | | | | Curren | | | t | | | [facility] | | | tive | | | Portal | | | This | | | patien | | | t has | | | regist | | | ered | | | at the | | | | | | [facility] | | | | | | Region | | | al | | | Medica | | | l | | | Center | | | | | | Emerge | | | ncy | | | Depart | | | ment | | | For | | | more | | | inform | | | ation | | | visit: | | | | | | https: | | | //secu | | | re.col | | | lectiv | | | emedic | | | al.com | | | /notif | | | [id number] | | | [id number] | | | [id number] | | | [id number] | | | [phone] | | | [id number] | | | 16 | | | PLEASE | | | NOTE: | | | 1. | | | Any | | | care | | | recomm | | | endati | | | ons | | | and | | | other | | | clinic | | | al | | | inform | | | ation | | | are | | | provid | | | ed as | | | guidel | | | ernestine | | | or for | | | | | | histor | | | ical | | | purpos | | | es | | | only, | | | and | | | provid | | | ers | | | should | | | | | | exerci | | | se | | | their | | | own | | | clinic | | | al | | | judgme | | | nt | | | when | | | provid | | | ing | | | care. | | | 2. | | | You | | | may | | | only | | | use | | | this | | | inform | | | ation | | | for | | | purpos | | | es of | | | treatm | | | ent, | | | paymen | | | t or | | | health | | | care | | | operat | | | ions | | | activi | | | ties, | | | and | | | subjec | | | t to | | | the | | | limita | | | tions | | | of | | | applic | | | able | | | [facility] | | | tive | | | Polici | | | es. | | | 3. | | | You | | | should | | | | | | consul | | | t | | | direct | | | ly | | | with | | | the | | | organi | | | zation | | | that | | | provid | | | ed a | | | care | | | guidel | | | ine or | | | other | | | | | | clinic | | | al | | | histor | | | y with | | | any | | | questi | | | ons | | | about | | | additi | | | onal | | | inform | | | ation | | | or | | | accura | | | cy or | | | comple | | | teness | | | of | | | inform | | | ation | | | provid | | | ed.? | | | 2019 | | | [facility] | | | tive | | | Medica | | | l | | | Techn[employer] | | | logies | | | , Inc[employer] | | | - | | | [email or web address] | | | llecti | | | vemedi | | | [email or web address] | | | m | +---+--------+ + +--------+ +---+ + | PTT | STAT | 01/13/2019 | | Results for this | | | | 7:53 PM | | procedure are in the | | | | PDT | | results section. | + +--------+ +---+ + | PROTIME INR | STAT | 01/13/2019 | | Results for this | | | | 7:53 PM | | procedure are in the | | | | PDT | | results section. | + +--------+ +---+ + | AMMONIA | STAT | 01/13/2019 | | Results for this | | | | 7:53 PM | | procedure are in the | | | | PDT | | results section. | + +--------+ +---+ + | COMPREHENSIVE | STAT | 01/13/2019 | | Results for this | | METABOLIC PANEL | | 7:53 PM | | procedure are in the | | | | PDT | | results section. | + +--------+ +---+ + | CBC WITH | STAT | 01/13/2019 | | Results for this | | DIFFERENTIAL | | 7:53 PM | | procedure are in the | | | | PDT | | results section. | + +--------+ +---+ + | ED INFORMATION | Routin | 01/13/2019 | | | | EXCHANGE | e | 6:22 PM | | | | | | PDT | | | + +--------+ +---+ + +---+--------+ | | | | | Proced | | | ure | | | Note - | | | Vitaly, | | | Lab In | | | | | | Hlseve | | | n - | | | | | | 2018 | | | 6:23 | | | PM PDT | | | | | | Format | | | ting | | | of | | | this | | | note | | | might | | | be | | | differ | | | ent | | | from | | | the | | | origin | | | al.COL | | | LECTIV | | | E?NOTI | | | FICATI | | | ON?09/ | | | 15/201 | | | 9 | | | 18:22? | | | HOPTOW | | | IT, | | | MARISOL | | | INE?MR | | | N: | | | [id number] | | | [id number] | | | riteri | | | a Met | | | Care | | | Guidel | | | inesSe | | | curity | | | and | | | Safety | | | No | | | recent | | | | | | Securi | | | ty | | | Events | | | | | | curren | | | tly on | | | | | | fileED | | | Care | | | Guidel | | | inesTh | | | ere | | | are | | | curren | | | tly no | | | ED | | | Care | | | Guidel | | | ernestine | | | for | | | this | | | patien | | | t. | | | Please | | | check | | | your | | | facili | | | ty's | | | medica | | | l | | | record | | | s | | | system | | | .Care | | | Histor | | | yMedic | | | al/Gege | | | [email or web address] | | | /10/19 | | | 12:00 | | | AM | | | [facility] | | [facility] | | | al | | | PATIEN | | | T IS | | | CURREN | | | TLY | | | WORKIN | | | G WITH | | | RN | | | CASE | | | MANAGE | | | R | | | MANUEL- | | | YELLOW | | | [facility]. | | | MANUEL | | | MEETS | | | WITH | | | PATIEN | | | T ONCE | | | A | | | WEEK. | | | | | | PATIEN | | | T | | | CHOOSE | | | S AT | | | TIMES | | | TO BE | | | NON | | | COMPLI | | | ANT | | | WITH | | | MEDICA | | | TIONS. | | | | | | MANUEL | | | RN | | | CASE | | | MANAGE | | | R- IS | | | FOLLOW | | | ING UP | | | WITH | | | PATIEN | | | T | | | CLOSEL | | | Y.1/17 | | | /19 | | | 12:00 | | | AM | | | [facility] | | | [facility] | | | [facility] | | | al | | | CHW | | | CONTAC | | | GAYLE | | | WENDY | | | AT | | | YELLOW | | | [facility] | | | RN CM- | | | THEY | | | HAVE | | | BEEN | | | DISCUS | | | SING | | | PATIEN | | | T CARE | | | WITH | | | PCP. | | | PATIEN | | | T DOES | | | HAVE | | | A | | | GASTRO | | | ENTERO | | | LOGIST | | | WHO | | | IS | | | BEING | | | SEEN | | | OUTSID | | | E OF | | | THE | | | YELLOW | | | [facility] | | | NETWOR | | | K. | | | PATIEN | | | T PCP | | | IS | | | AWARE | | | OF | | | PATIEN | | | T | | | CURREN | | | T | | | MEDICA | | | L | | | CONDIT | | | [email or web address] | | | 1/14/1 | | | 8 | | | 12:00 | | | AM | | | [facility] | [facility] | | | al | | | PER | | | PCP | | | OFFICE | | | - | | | PATIEN | | | T HAS | | | NOT | | | FOLLOW | | | ED UP | | | WITH | | | PCP | | | AFTER | | | DISCHA | | | RGE | | | FROM | | | HOSPIT | | | AL ON | | | 10/08/ | | | 17. | | | PATIEN | | | T IS | | | NOT | | | FOLLOW | | | ING UP | | | AND | | | OR | | | UTILIZ | | | ING | | | MENTAL | | | | | | HEALTH | | | | | | SERVIC | | | ES | | | THROUG | | | H | | | [facility] | | | YS.Pre | | | script | | | ion | | | Drug | | | Report | | | (12 | | | Mo.)PD | | | MP | | | query | | | found | | | no | | | report | | | .E.D. | | | Visit | | | Count | | | (12 | | | mo.)Fa | | | cility | | | | | | Visits | | | Low | | | Acuity | | | | | | Provid | | | ence | | | St[facility] | | | [facility] | | | l | | | [facility] | | | 2 0 | | | [facility] | | [facility] | | | al 12 | | | 0 | | | Total | | | 14 0 | | | Note: | | | Visits | | | | | | indica | | | te | | | total | | | known | | | visits | | | . | | | Medica | | | id Low | | | | | | Acuity | | | Dx | | | are | | | the | | | number | | | of | | | primar | | | y | | | diagno | | | ses on | | | the | | | Medica | | | id's | | | Low | | | Acuity | | | dx | | | list. | | | | | | Recent | | | | | | Emerge | | | ncy | | | Depart | | | ment | | | Visit | | | [place] | | | yShowi | | | ng 10 | | | most | | | recent | | | | | | visits | | | out | | | of 14 | | | in the | | | past | | | 12 | | | months | | | Date | | | Facili | | | ty | | | City | | | State | | | Type | | | Diagno | | | ses or | | | Chief | | | | | | Compla | | | int | | | Sep | | | 15, | | | 2019 | | | Provid | | | ence | | | [facility] | | [place] | | | [place] | | | Emerge | | | ncy | | | Abd | | | pain | | | Sep 6, | | | 2019 | | | [facility] | [facility] | | | [place] | | | [place] | | | Emerge | | | ncy | | | Chief | | | Compla | | | int: | | | SHAKY | | | Sep | | | 1, | | | 2019 | | | [facility] | | | [place] | | | [place] | | | Emerge | | | ncy | | | Pain | | | in | | | left | | | foot | | | | | | Striki | | | ng | | | agains | | | t or | | | struck | | | by | | | other | | | object | | | s, | | | initia | | | l | | | encoun | | | ter | | | Other | | | long | | | term | | | (curre | | | nt) | | | drug | | | therap | | | y | | | Contus | | | ion of | | | left | | | foot, | | | initia | | | l | | | encoun | | | ter | | | Stephan 8, | | | 2019 | | | [facility] | | | [place] | | | [place] | | | Emerge | | | ncy | | | | | | Unspec | | | ified | | | abdomi | | | nal | | | pain | | | | | | Unspec | | | ified | | | cirrho | | | sis of | | | liver | | | | | | Other | | | long | | | term | | | (curre | | | nt) | | | drug | | | therap | | | y Stephan | | | 4, | | | 2019 | | | Provid | | | ence | | | [facility] | [facility] | [place] | | | [place] | | | Emerge | | | ncy | | | abd | | | pain | | | | | | Abdomi | | | nal | | | Pain | | | | | | Other | | | ascite | | | s Jamel | | | 15, | | | 2019 | | | [facility] | [facility] | [place] | | | Emerge | | | ncy | | | | | | Unspec | | | ified | | | abdomi | | | nal | | | pain | | | | | | Other | | | long | | | term | | | (curre | | | nt) | | | drug | | | therap | | | y | | | Other | | | ascite | | | s | | | Unspec | | | ified | | | cirrho | | | sis of | | | liver | | | Apr | | | 20, | | | 2019 | | | [facility] | | | [place] | | | [place] | | | Emerge | | | ncy | | | Chief | | | Compla | | | int: | | | NAUSEA | | | /TREMO | | | RS/ALTAGRACIA | | | RRHEA | | | Mar | | | 25, | | | 2019 | | | [facility] | [facility] | | | [place] | | | [place] | | | Emerge | | | ncy | | | Other | | | long | | | term | | | (curre | | | nt) | | | drug | | | therap | | | y | | | Perium | | | bilica | | | l pain | | | | | | Acquir | | | ed | | | absenc | | | e of | | | other | | | specif | | | ied | | | parts | | | of | | | digest | | | wes | | | tract | | | | | | Hypoth | | | yroidi | | | sm, | | | unspec | | | ified | | | | | | Unspec | | | ified | | | cirrho | | | sis of | | | liver | | | | | | Acquir | | | ed | | | absenc | | | e of | | | both | | | cervix | | | and | | | uterus | | | Yusef | | | 15, | | | 2019 | | | [facility] | | | [facility] | | | [place] | | | [place] | | | Emerge | | | ncy | | | Other | | | long | | | term | | | (curre | | | nt) | | | drug | | | therap | | | y | | | Hypoth | | | yroidi | | | sm, | | | unspec | | | ified | | | | | | Person | | | al | | | histor | | | y of | | | transi | | | ent | | | ischem | | | ic | | | attack | | | | | | (TIA), | | | and | | | cerebr | | | al | | | infarc | | | tion | | | withou | | | t | | | residu | | | al | | | defici | | | ts | | | Unspec | | | ified | | | abdomi | | | nal | | | pain | | | | | | Acquir | | | ed | | | absenc | | | e of | | | both | | | cervix | | | and | | | uterus | | | Yusef | | | 11, | | | 2019 | | | [facility] | [place] | | | [facility] | | | [place] | | | [place] | | | Emerge | | | ncy | | | Other | | | long | | | term | | | (curre | | | nt) | | | drug | | | therap | | | y | | | Acquir | | | ed | | | absenc | | | e of | | | both | | | cervix | | | and | | | uterus | | | | | | Left | | | upper | | | quadra | | | nt | | | pain | | | | | | Hypoth | | | yroidi | | | sm, | | | unspec | | | ified | | | | | | Unspec | | | ified | | | cirrho | | | sis of | | | liver | | | | | | Recent | | | | | | Inpati | | | ent | | | Visit | | | Summar | | | yDate | | | Facili | | | ty | | | City | | | State | | | Type | | | Diagno | | | ses or | | | Chief | | | | | | Compla | | | int | | | Sep 6, | | | 2019 | | | [facility] | [place] | | | [facility] | | | [place] | | | [place] | | | Observ | | | ation | | | | | | Hypo-o | | | smolal | | | ity | | | and | | | hypona | | | tremia | | | | | | Unspec | | | ified | | | cirrho | | | sis of | | | liver | | | | | | Long | | | term | | | (curre | | | nt) | | | use of | | | | | | antibi | | | otics | | | | | | Dizzin | | | ess | | | and | | | giddin | | | ess | | | Other | | | long | | | term | | | (curre | | | nt) | | | drug | | | therap | | | y | | | Hypoth | | | yroidi | | | sm, | | | unspec | | | ified | | | | | | Gastro | | | -esoph | | | ageal | | | reflux | | | | | | diseas | | | e | | | withou | | | t | | | esopha | | | gitis | | | | | | Autoim | | | mune | | | hepati | | | tis | | | | | | Hepati | | | c | | | failur | | | e, | | | unspec | | | ified | | | withou | | | t coma | | | | | | Patien | | | t's | | | other | | | noncom | | | plianc | | | e with | | | | | | medica | | | tion | | | regime | | | n Apr | | | 20, | | | 2019 | | | [facility] | [place] | | | [facility] | | | [place] | | | [place] | | | Observ | | | ation | | | | | | Unspec | | | ified | | | abdomi | | | nal | | | pain | | | | | | Advers | | | e | | | effect | | | of | | | loop | | | [high- | | | ceilin | | | g] | | | diuret | | | ics, | | | initia | | | l | | | encoun | | | ter | | | Other | | | | | | ascite | | | s | | | Gastro | | | -esoph | | | ageal | | | reflux | | | | | | diseas | | | e | | | withou | | | t | | | esopha | | | gitis | | | | | | Hypoth | | | yroidi | | | sm, | | | unspec | | | ified | | | | | | Unspec | | | ified | | | cirrho | | | sis of | | | liver | | | | | | Other | | | long | | | term | | | (curre | | | nt) | | | drug | | | therap | | | y | | | Autoim | | | mune | | | hepati | | | tis | | | | | | Nausea | | | | | | Other | | | hypote | | | nsion | | | Oct | | | 19, | | | 2018 | | | [place] | | | | [facility] | | and | | | [facility] | | | e | | | Un[facility] | | | sity | | | [place] | [place] | | | Critic | | | al | | | Care | | | | | | 10,150 | | | . | | | Hepati | | | c | | | failur | | | e, | | | unspec | | | ified | | | withou | | | t coma | | | | | | 18,400 | | | . | | | Other | | | specif | | | ied | | | diseas | | | es of | | | intest | | | ine | | | | | | 18,400 | | | . | | | Other | | | specif | | | ied | | | disord | | | ers of | | | | | | bladde | | | r | | | 18,400 | | | . | | | Spondy | | | losis | | | withou | | | t | | | myelop | | | athy | | | or | | | radicu | | | lopath | | | y, | | | cervic | | | al | | | region | | | | | | 18,400 | | | . | | | Autoim | | | mune | | | hepati | | | tis | | | | | | 18,400 | | | . | | | Hypoth | | | yroidi | | | sm, | | | unspec | | | ified | | | | | | 18,400 | | | . | | | Gastri | | | tis, | | | unspec | | | ified, | | | | | | withou | | | t | | | bleedi | | | ng | | | 18,400 | | | . | | | Wedge | | | compre | | | ssion | | | fractu | | | re of | | | first | | | lumbar | | | | | | verteb | | | ra, | | | subseq | | | uent | | | encoun | | | ter | | | for | | | fractu | | | re | | | with | | | routin | | | e | | | healin | | | g | | | 18,400 | | | . | | | Other | | | disord | | | ers of | | | | | | electr | | | olyte | | | and | | | fluid | | | balanc | | | e, not | | | | | | elsewh | | | ere | | | classi | | | fied | | | Oct | | | 17, | | | 2018 | | | [facility] | | [place] | | | [facility] | | | [place] | | | [place] | | | Medica | | | l | | | Surgic | | | al | | | Hepati | | | c | | | failur | | | e, | | | unspec | | | ified | | | withou | | | t coma | | | | | | Other | | | specif | | | ied | | | bacter | | | ial | | | intest | | | inal | | | infect | | | ions | | | | | | Dehydr | | | ation | | | | | | Hypoth | | | yroidi | | | sm, | | | unspec | | | ified | | | | | | Advers | | | e | | | effect | | | of | | | benzod | | | iazepi | | | sallie, | | | initia | | | l | | | encoun | | | ter | | | | | | Gastri | | | tis, | | | unspec | | | ified, | | | | | | withou | | | t | | | bleedi | | | ng | | | Autoim | | | mune | | | hepati | | | tis | | | Other | | | | | | osteop | | | orosis | | | with | | | curren | | | t | | | pathol | | | ogical | | | | | | fractu | | | re, | | | verteb | | | ra(e), | | | | | | initia | | | l | | | encoun | | | ter | | | for | | | fractu | | | re | | | Care | | | TeamPr | | | ovider | | | | | | Specia | | | lty | | | Phone | | | Fax | | | Servic | | | e | | | Dates | | | [facility] | | | ON, | | | TIMOTH | | | Y , MD | | | | | | 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 | | | al | | | Medici | | | ne: | | | Pulmon | | | shelly | | | Diseas | | | e | | | Curren | | | t | | | QUAEMP | | | TS, | | | LANA M, | | | MD | | | Family | | | | | | Medici | | | ne | | | Nov | | | 13, | | | 2018 - | | | | | | Curren | | | t | | | THURMA | | | N, | | | COLLEE | | | N, | | | 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 | | | [facility] | | | [facility] | | | | | | Emerge | | | ncy | | | Depart | | | ment | | | For | | | more | | | inform | | | ation | | | visit: | | | | | | https: | | | //secu | | | [email or web address] | | | lectiv | | | emedic | | | [email or web address] | | | /notif | | | [id number] | | | [id number] | | | [email or web address] | | | [id number] | | | [id number] | | | [id number] | | | 09 | | | PLEASE | | | NOTE: | | | 1. | | | Any | | | care | | | recomm | | | endati | | | ons | | | and | | | other | | | clinic | | | al | | | inform | | | ation | | | are | | | provid | | | ed as | | | guidel | | | ernestine | | | or for | | | | | | histor | | | ical | | | purpos | | | es | | | only, | | | and | | | provid | | | ers | | | should | | | | | | exerci | | | se | | | their | | | own | | | clinic | | | al | | | judgme | | | nt | | | when | | | provid | | | ing | | | care. | | | 2. | | | You | | | may | | | only | | | use | | | this | | | inform | | | ation | | | for | | | purpos | | | es of | | | treatm | | | ent, | | | paymen | | | t or | | | health | | | care | | | operat | | | ions | | | activi | | | ties, | | | and | | | subjec | | | t to | | | the | | | limita | | | tions | | | of | | | applic | | | able | | | Collec | | | tive | | | Polici | | | es. | | | 3. | | | You | | | should | | | | | | consul | | | t | | | direct | | | ly | | | with | | | the | | | organi | | | zation | | | that | | | provid | | | ed a | | | care | | | guidel | | | ine or | | | other | | | | | | clinic | | | al | | | histor | | | y with | | | any | | | questi | | | ons | | | about | | | additi | | | onal | | | inform | | | ation | | | or | | | accura | | | cy or | | | comple | | | teness | | | of | | | inform | | | ation | | | provid | | | ed.? | | | 2019 | | | [facility] | | | tive | | | Medica | | | l | | | [employer] | | | logies | | | , Inc[employer] | | | - | | | [email or web address] | | | llecti | | | vemedi | | | [email or web address] | | | m | +---+--------+ from Last 3 Months Results Extra Blue Top Tube (03/15/2019 7:59 PM PST) + +-------+ + + + | Component | Value | Ref Range | Performed | Pathologist | | | | | At | Signature | + +-------+ + + + | Extra Blue | Done | | [facility] | | | Top Tube | | | [facility] | | | | | | [facility] [...] + | [facility] | [address] | [place] | [phone] | | [facility] | | [address] | | | - LABORATORY | | | | + + + + + CBC with Differential (03/15/2019 7:59 PM PST)Only the most recent of 3 results within the time period is included. + + + + + + | Component | Value | Ref Range | Performed | Pathologist | | | | | At | Signature | + + + + + + | WBC | 4.6 | 4.0 - 11.0 K/uL | [facility] | | | [facility] | | [facility] - | | | | | | LAB[facility]ATORY | | + + + + + + | RBC | 2.70 (L) | 3.70 - 5.20 | [facility] | | | | | M/uL | [facility] | [facility] | [facility] | | | | | | [facility] - | | | | | | LABORATORY | | + + + + + + | Hemoglobin | 7.8 (L) | 11.5 - 16.0 | [facility] | | | | | g/dL | [facility] | | | | | | [facility] | | | | | | [facility] - | | | | | | LABORATORY | | + + + + + + | Hematocrit | 23.6 (L) | 34.0 - 47.0 % | [facility] | | | | | | [facility] | | | | | | [facility] | | | | | | [facility] - | | | | | | LABORATORY | | + + + + + + | MCV | 87.4 | 83.0 - 101.0 fL | [facility] | | | | | | [facility] | | | | | | [facility] | | | | | | [facility] - | | | | | | LABORATORY | | + + + + + + | MCH | 28.9 | 28.0 - 35.0 pg | [facility] | | | | | | [facility] | | | | | | [facility] | | | | | | [facility] - | | | | | | LABORATORY | | + + + + + + | MCHC | 33.1 | 32.0 - 36.0 | [facility] | | | | | g/dL | [facility] | | | | | | [facility] | | | | | | [facility] - | | | | | | LABORATORY | | + + + + + + | RDW-CV | 21.0 (H) | <15.0 % | [facility] | | | | | | [facility] | | | | | | [facility] | | | | | | [facility] - | | | | | | LABORATORY | | + + + + + + | RDW-SD | 66.9 (H) | 35.1 - 46.3 fL | [facility] | | | | | | [facility] | | | | | | [facility] | | | | | | [facility] - | | | | | | LABORATORY | | + + + + + + | Platelet | 71 (L) | 140 - 440 K/uL | [facility] | | | Count | | | [facility] | | | | | | [facility] | | | | | | [facility] - | | | | | | LABORATORY | | + + + + + + | MPV | 9.1 | 6.5 - 12.4 fL | [facility] | | | | | | [facility] | | | | | | [facility] | | | | | | [facility] - | | | | | | LABORATORY | | + + + + + + | % | 62.4 | 45.0 - 82.0 % | [facility] | | | Neutrophils | | | [facility] | | | | | | [facility] | | | | | | C[facility] - | | | | | | LABORATORY | | + + + + + + | % | 18.7 (L) | 20.0 - 45.0 % | [facility] | | | Lymphocytes | | | [facility] | | | | | | [facility] | | | | | | CENTER - | | | | | | LABORATORY | | + + + + + + | % Monocytes | 12.6 (H) | 4.0 - 12.0 % | [facility] | | | | | | [facility] | | | | | | [facility] | | | | | | C[facility] - | | | | | | LABORATORY | | + + + + + + | % | 5.0 | 0.0 - 5.0 % | [facility] | | | Eosinophils | | | [facility] | | | | | | [facility] | | | | | | C[facility] - | | | | | | LABORATORY | | + + + + + + | % Basophils | 1.1 (H) | 0.0 - 1.0 % | [facility] | | | | | | [facility] | | | | | | [facility] | | | | | | C[facility] - | | | | | | LABORATORY | | + + + + + + | % Immature | 0.2 | 0.0 - 0.4 % | [facility] | | | Granulocyte | | | [facility] | | | s | | | MEDICAL | | | | | | CENTER - | | | | | | LABORATORY | | + + + + + + | Absolute | 2.86 | 1.80 - 8.50 | [facility] | | | Neutrophils | | K/uL | [facility] | | | | | | [facility] | | | | | | CENTER - | | | | | | LABORATORY | | + + + + + + | Absolute | 0.86 | 0.60 - 3.20 | [facility] | | | Lymphocytes | | K/uL | [facility] | | | | | | [facility] | | | | | | [facility] - | | | | | | LABORATORY | | + + + + + + | Absolute | 0.58 | 0.00 - 1.00 | [facility] | | | Monocytes | | K/uL | [facility] | | | | | | [facility] | | | | | | [facility] - | | | | | | LABORATORY | | + + + + + + | Absolute | 0.23 | 0.00 - 0.40 | [facility] | | | Eosinophils | | K/uL | [facility] | | | | | | [facility] | | | | | | C[facility] - | | | | | | LABORATORY | | + + + + + + | Absolute | 0.05 | 0.00 - 0.10 | [facility] | | | Basophils | | K/uL | [facility] | | | | | | [facility] | | | | | | CENTER - | | | | | | LABORATORY | | + + + + + + | Absolute | 0.01 | 0.00 - 0.03 | [facility] | | | Immature | | K/uL | [facility] | | | Granulocyte | | | MEDICAL | | | s | | | CENTER - | | | | | | LABORATORY | | + + + + + + | % nRBC | 0 | 0 - 2 per 100 | [facility] | | | | | WBCs | [facility] | | | | | | [facility] | | | | | | CENTER - | | | | | | LABORATORY | | + + + + + + | Absolute | 0.00 | 0.00 - 0.01 | [facility] | | | nRBC | | K/uL | [facility] | | | | [...] + | [facility] | [address] | [place], [place] | [phone] | | [facility] | | [address] | | | - LABORATORY | | | | + + + + + B Type Natriuretic Peptide (03/15/2019 7:59 PM PST) + +---------+ + + + | Component | Value | Ref Range | Performed | Pathologist | | | | | At | Signature | + +---------+ + + + | BNP | 149 (H) | <100 pg/mL | [facility] | | | | | [facility] | | | | | | [facility] | | | | | | [facility] - | | | | | | LABORATORY | | + +---------+ + + + + + | Specimen | + + | Blood | + + + + + + + | Performing | Address | City/State/Zipcode | Phone Number | | Organization | | | | + + + + + | [facility] | [address] | [place] | [phone] | | [facility] | | [address] | | | - LABORATORY | | | | + + + + + Comprehensive Metabolic Panel (03/15/2019 7:59 PM PST)Only the most recent of 3 results wi thin the time period is included. + + + + + + | Component | Value | Ref Range | Performed | Pathologist | | | | | At | Signature | + + + + + + | Na | 138 | 136 - 145 | [facility] | | | | | mmol/L | [facility] | | | | | | [facility] | | | | | | C[facility] - | | | | | | LABORATORY | | + + + + + + | K | 3.9 | 3.4 - 5.1 | [facility] | | | | | mmol/L | [facility] | | | | | | [facility] | | | | | | CENTER - | | | | | | LABORATORY | | + + + + + + | Cl | 109 (H) | 98 - 107 mmol/L | [facility] | | | | | | [facility] | | | | | | [facility] | | | | | | CENTER - | | | | | | LABORATORY | | + + + + + + | CO2 | 24 | 20 - 31 mmol/L | [facility] | | | | | | [facility] | | | | | | [facility]ICAL | | | | | | CENTER - | | | | | | LABORATORY | | + + + + + + | Anion Gap | 5 | 3 - 16 mmol/L | [facility] | | | | | | [facility] | | | | | | [facility] | | | | | | CENTER - | | | | | | LABORATORY | | + + + + + + | Glucose | 120 (H) | 60 - 106 mg/dL | [facility] | | | | | | [facility] | | | | | | [facility] | | | | | | CENTER - | | | | | | LABORATORY | | + + + + + + | BUN | 10 | 9 - 23 mg/dL | [facility] | | | | | | [facility] | | | | | | [facility] | | | | | | CENTER - | | | | | | LABORATORY | | + + + + + + | Creatinine | 0.77 | 0.55 - 1.02 | [facility] | | | | | mg/dL | [facility] | | | | | | [facility] | | | | | | CENTER - | | | | | | LABORATORY | | + + + + + + | eGFR if not | >60Comment: GLOMERULAR | >=60 | [facility] | | | | FILTRATION | mL/min/1.73m2 | [facility] | | | AFGHAN | RATE,ESTIMATED | | MEDICAL | | | | mL/min/1.14n4Cycn than | | CENTER - | | [...] + + + + | Calcium | 8.0 (L) | 8.7 - 10.4 | [facility] | | | | | mg/dL | [facility] | | | | | | [facility]ICAL | | | | | | CENTER - | | | | | | LABORATORY | | + + + + + + | Albumin | 2.5 (L) | 3.2 - 4.8 g/dL | [facility] | | | | | | [facility] | | | | | | [facility]ICAL | | | | | | CENTER - | | | | | | LABORATORY | | + + + + + + | Bilirubin | 3.1 (H) | 0.3 - 1.2 mg/dL | [facility] | | | Total | | | [facility] | | | | | | [facility]ICAL | | | | | | CENTER - | | | | | | LABORATORY | | + + + + + + | Total | 6.8 | 5.7 - 8.2 g/dL | [facility] | | | Protein | | | [facility] | | | | | | [facility]ICAL | | | | | | CENTER - | | | | | | LABORATORY | | + + + + + + | AST | 43 (H) | 0 - 34 U/L | [facility] | | | | | | [facility] | | | | | | [facility] | | | | | | CENTER - | | | | | | LABORATORY | | + + + + + + | ALT | 19 | 10 - 49 U/L | [facility] | | | | | | [facility] | | | | | | MEDICAL | | | | | | CENTER - | | | | | | LABORATORY | | + + + + + + | Alkaline | 145 (H) | 46 - 116 U/L | [facility] | | | Phosphatase | | | [facility] | | | | | | MEDICAL | | | | | | CENTER - | | | | | | LABORATORY | | + + + + + + | Globulin | 4.3 (H) | 2.1 - 3.8 g/dL | [facility] | | | | | | [facility] | | | | | | [facility]ICAL | | | | | | CENTER - | | | | | | LABORATORY | | + + + + + + | Albumin/Mary Carmen | 0.6 (L) | 0.8 - 1.9 | [facility] | | | bulin Ratio | | | [facility] | | | | | | MEDICAL | | | | | | CENTER - | | | | | | LABORATORY | | + + + + + + | BUN/Creatin | 13.0 | | [facility] | | | ine Ratio | | | [facility] | | | | | | MEDICAL [...] + | [facility] | [address] | [place] | [phone] | | [facility] | | [address] | | | - LABORATORY | | | | + + + + + VAS Lower Extremity Venous Bilateral (03/15/2019 7:37 PM PST) + + | Specimen | + + | | + + + + + | Impressions | Performed At | + + + | No evidence for deep venous thrombosis in either lower extremity. | [facility] | | The preliminary findings were conveyed to the ordering provider, | | | by the nutrition professor, immediately following the exam. Dictated | | | and Signed by: Cameron Florez MD Electronically signed: | | | 03/15/2019 7:53 PM | | + + + + + + | Narrative | Performed At | + + + | EXAM: VAS LOWER EXTREMITY VENOUS BILATERAL dated 03/15/2019 7:37 PM. | [facility] | | HISTORY: leg swelling post op. COMPARISON: None. | | | TECHNIQUE: Compression sonography was performed from the groin through | | | the popliteal fossa in both lower extremities. Grayscale and | | | spectral Doppler analysis is performed. FINDINGS: There is phasic | | | respiratory flow in all areas sampled. There is response to | | | Valsalva in the common femoral vein. There is response to calf | | | augmentation in all areas sampled. There is normal and complete | | | compressibility in all areas sampled. There are no visible thrombi. | | | | | + + + + + | Procedure Note | + + | Vitaly, Rad Results In - 03/15/2019 7:56 PM PST EXAM: VAS LOWER EXTREMITY VENOUS | | BILATERAL dated 03/15/2019 7:37 PM.HISTORY: leg swelling post op.COMPARISON: | | None.TECHNIQUE: Compression sonography was performed from the groin through thepopliteal | | fossa in both lower extremities. Grayscale and spectral Doppleranalysis is | | performed.FINDINGS: There is phasic respiratory flow in all areas sampled. There | | isresponse to Valsalva in the common femoral vein. There is response to | | calfaugmentation in all areas sampled. There is normal and complete compressibilityin | | all areas sampled. There are no visible thrombi.IMPRESSION: No evidence for deep venous | | thrombosis in either lower extremity.The preliminary findings were conveyed to the | | ordering provider, by thesonographer, immediately following the exam.Dictated and Signed | | by: Cameron Florez MD Electronically signed: 03/15/2019 7:53 PM | |response to Valsalva in the common femoral vein. There is response to calf | |augmentation in all areas sampled. There is normal and complete compressibility | |in all areas sampled. There are no visible thrombi. | | | |IMPRESSION: | | | |No evidence for deep venous thrombosis in either lower extremity. | | | |The preliminary findings were conveyed to the ordering provider, by the | |nutrition professor, immediately following the exam. | | | | | |Dictated and Signed by: Cameron Florez MD | | Electronically signed: 03/15/2019 7:53 PM | + + + +---------+ + + | Performing | Address | City/State/Zipcode | Phone Number | | Organization | | | | + +---------+ + + | [facility] | | | | + +---------+ + + Abdominal Paracentesis (02/01/2019 12:35 AM PDT) + + + | Narrative | Performed At | + + + | Reza Wynn MD 02/01/2019 0:39 Abdominal Paracentesis | | | Date/Time: 02/01/2019 0:38 Performed by: Reza Wynn MD | | | Authorized by: Reza Wynn MD Consent: Consent obtained: | | | Verbal Consent given by: Patient Risks discussed: | | | Bleeding, bowel perforation, infection and pain Alternatives | | | discussed: No treatment Pre-procedure details: Procedure | | | purpose: Therapeutic Anesthesia: Anesthesia method: Local | | | infiltration Local anesthetic: Lidocaine 1% WITH epi Procedure | | | details: Needle gauge: 18 Ultrasound guidance: yes | | | Puncture site: L lower quadrant Fluid removed amount: [id number] | | | Fluid appearance: Cloudy and shannon Dressinx4 sterile | | | gauze Post-procedure details: Patient tolerance of procedure: | | | Tolerated well, no immediate complications | | + + + Culture, Body Fluid Sterile (01/31/2019 11:05 PM PDT) + + + + + + | Component | Value | Ref Range | Performed | Pathologist | | | | | At | Signature | + + + + + + | Gram Stain | WBC'S SEEN | | [facility] | | | Result | | | LABORATORY | | + + + + + + | Gram Stain | NO ORGANISMS SEEN | | [facility] | | | Result | | | LABORATORY | | + + + + + + | Gram Stain | STAIN PERFORMED ON | | [facility] | | | Result | [facility] | | LABORATORY | | + + + + + + | Gram Stain | Testing performed at | | [facility] | | | Result | [facility] [place] | | LABORATORY | | | | [place] [id number] | | | | + + + + + + | RESULT | NO GROWTH 4 DAYS | | [facility] | | | | | | LABORATORY | | + + + + + + | RESULT | Testing performed at | | [facility] | | | | [place], [address] [facility] | | LABORATORY | | | | [place] | | | | | | [id number]: Testing | | | | | | performed at [facility], [address] | | [address] [place], [place] | | | | | | [address] | | | | + + + + + + + + | Specimen | + + | Body Fluid - Ascitic | | fluid sample | | (specimen) | + + + + + + + | Performing | Address | City/State/Zipcode | Phone Number | | Organization | | | | + + + + + | [facility] | [address] | [place] [address] | [phone] | + + + + + Cell Count, Body Fluid (01/31/2019 11:05 PM PDT) + + + + + + | Component | Value | Ref Range | Performed | Pathologist | | | | | At | Signature | + + + + + + | Specimen | ASCITES FLUID | | [facility] | | | Type | | | LABORATORY | | + + + + + + | Color | YELLOW | | [facility] | | | | | | LABORATORY | | + + + + + + | APPEARANCE | CLOUDY | | [facility] | | | | | | LABORATORY | | + + + + + + | BF RBC | <84404 | /mm3 | [facility] | | | | | | LABORATORY | | + + + + + + | BF | 130 | /mm3 | [facility] | | | Nucleated | | | LABORATORY | | | Cells | | | | | + + + + + + | Neutrophils | 15 | % | [facility] | | | , Fluid | | | LABORATORY | | + + + + + + | BF % | 20 | % | [facility] | | | Lymphocytes | | | LABORATORY | | + + + + + + | BF | 14 | % | [facility] | | | Mononuclear | | | LABORATORY | | | Phagocytes | | | | | | % | | | | | + + + + + + | MESOTHELIAL | 1 | % | [facility] | | | CELLS | | | LABORATORY | | + + + + + + | Cells | 50Comment: Testing | | [facility] | | | Counted | performed at [facility] [place] | | LABORATORY | | | | [address];[place], [place] | | | | | | [id number] ON 02/01 | | | | | | AT 0034: PREVIOUSLY | | | | | | REPORTED 100 | | | | + + + + + + + + | Specimen | + + | Body Fluid | + + + + + + + | Performing | Address | City/State/Zipcode | Phone Number | | Organization | | | | + + + + + | [facility] | [address] | [place] [address] | [phone] | + + + + + Urinalysis With Microscopic (01/31/2019 10:30 PM PDT) + + + + + + | Component | Value | Ref Range | Performed | Pathologist | | | | | At | Signature | + + + + + + | Color, UA | SHANNON | | [facility] | | | | | | LABORATORY | | + + + + + + | Clarity, UA | CLOUDY | | [facility] | | | | | | LABORATORY | | + + + + + + | Specific | 1.026 | 1.002 - 1.030 | [facility] | | | [place], | | | LABORATORY | | | Urine | | | | | + + + + + + | Leukocyte | MODERATE (A) | NEG | [facility] | | | esterase, | | | LABORATORY | | | UA | | | | | + + + + + + | Nitrite, UA | NEGATIVE | NEG | [facility] | | | | | | LABORATORY | | + + + + + + | Urobilinoge | 4.0 (H) | <1.1 mg/dL | [facility] | | | n, Ur | | | LABORATORY | | + + + + + + | Protein, | NEGATIVE | NEG mg/dL | [facility] | | | Urine | | | LABORATORY | | | (mg/dL) | | | | | + + + + + + | pH, Urine | 5.0 | 5.0 - 8.0 | [facility] | | | | | | LABORATORY | | + + + + + + | Blood, UA | NEGATIVE | NEG | [facility] | | | | | | LABORATORY | | + + + + + + | Ketones, UA | TRACE (A) | NEG mg/dL | [facility] | | | | | | LABORATORY | | + + + + + + | Bilirubin, | NEGATIVE | NEG | [facility] | | | UA | | | LABORATORY | | + + + + + + | Glucose, Ur | NEGATIVE | NEG mg/dL | [facility] | | | | | | LABORATORY | | + + + + + + | WBC UA | 11-15 | 0 - 5 /hpf | [facility] | | | | | | LABORATORY | | + + + + + + | RBC UA | 6-10 | 0 - 5 /hpf | [facility] | | | | | | LABORATORY | | + + + + + + | SQUAMOUS | >100 | /lpf | [facility] | | | EPITHELIAL | | | LABORATORY | | | UA | | | | | + + + + + + | BACTERIA UA | NONE SEEN | NONE | [facility] | | | | | | LABORATORY | | + + + + + + | MUCUS UA | 1+ | | [facility] | | | | | | LABORATORY | | + + + + + + | CALCIUM | 4+Comment: Testing | /hpf | SYD | | | OXALATE | performed at [facility];[address] | | LABORATORY | | | [address] | [address];[place], [place] | | | | | | [address] | | | | + + + + + + + + | Specimen | + + | Urine - Urine | | specimen obtained by | | clean catch | | procedure (specimen) | + + + + + + + | Performing | Address | City/State/Zipcode | Phone Number | | Organization | | | | + + + + + | [facility] | [address] | [place] [address] | [phone] | + + + + + Lipase (01/31/2019 9:42 PM PDT) + + + + + + | Component | Value | Ref Range | Performed | Pathologist | | | | | At | Signature | + + + + + + | Lipase | 66 (H)Comment: Testing | 12 - 53 U/L | [facility] | | | | performed at [facility];[address] | | LABORATORY | | | | [facility];[place], [place] | | | | | | [address] | | | | + + + + + + + + | Specimen | + + | Blood | + + + + + + + | Performing | Address | City/State/Zipcode | Phone Number | | Organization | | | | + + + + + | [facility] | [address] | [place] [address] | [phone] | + + + + + PTT (01/13/2019 7:53 PM PDT) + +-------+ + + + | Component | Value | Ref Range | Performed | Pathologist | | | | | At | Signature | + +-------+ + + + | aPTT | 35 | 22 - 36 seconds | [facility] | | | | | [...] ST. | [address] | [place], [place] | [phone] | | [facility] | | [address] | | | - LABORATORY | | | | + + + + + Protime INR (01/13/2019 7:53 PM PDT) + + + + + + | Component | Value | Ref Range | Performed | Pathologist | | | | | At | Signature | + + + + + + | Prothrombin | 18.4 (H) | 11.3 - 13.9 | [facility] | | | Time | | seconds | [facility] | | | | | | MEDICAL | | | | | | CENTER - | | | | | | LABORATORY | | + + + + + + | INR | 1.6 (H)Comment: Usual | 0.9 - 1.1 | [facility] | | | | Oral Anticoagulation | | [facility] | | | | Range: 2.0 - | | MEDICAL | | | | 3.0High Level Oral | | CENTER - | | | | Anticoagulation Range: | | LABORATORY | | | | 2.5 - 3.5 | | | | + + + + + + + + | Specimen | + + | Blood | + + + + + + + | Performing | Address | City/State/Zipcode | Phone Number | | Organization | | | | + + + + + | [facility] | [address] | [place] | [phone] | | [facility] | | [address] | | | - LABORATORY | | | | + + + + + Ammonia (01/13/2019 7:53 PM PDT) + +--------+ + + + | Component | Value | Ref Range | Performed | Pathologist | | | | | At | Signature | + +--------+ + + + | Ammonia | 88 (H) | 11 - 32 umol/L | [facility] | | | | | | [facility] | | | | | | MEDICAL [...] ST. | [address] | [place] | [phone] | | [facility] | | [address] | | | - LABORATORY | | | | + + + + + from Last 3 Months Insurance + +--------+ +--------+ +---------+--------+ | Payer | Benefi | Subscriber | Effect | Phone | Address | Type | | | t Plan | ID | wes | | | | | | / | | Dates | | | | | | Group | | | | | | + +--------+ +--------+ +---------+--------+ | MEDICARE | MEDICA | [id number] | | [phone] | | Medica | | | RE | | 019-Pr | 5 | | re | | | PART A | | esent | | | | | | AND B | | | | | | + +--------+ +--------+ +---------+--------+ | MEDICARE | MEDICA | [id number] | | [phone] | | Medica | | | RE | | 019-Pr | 5 | | re | | | PART A | | esent | | | | | | AND B | | | | | | + +--------+ +--------+ +---------+--------+ | [employer] | IHS | [id number] | 12/07/19 | | | Indemn | | SERVICE | YELLOW | | 15-Pre | | | ity | | | HAWK | | sent | | | | + +--------+ +--------+ +---------+--------+ | [place] | MEDICA | [id number] | | [phone] | | Med[place] | | | [place] | | 018-Pr | 2 | | id | | | PLUS | | esent | | | | + +--------+ +--------+ +---------+--------+ | [place] | MEDICA | [id number] | | [phone] | | Med[place] | | | [place] | | 019-Pr | 2 | | id | | | PLUS | | esent | | | | + +--------+ +--------+ +---------+--------+ + +--------+ +--------+ + + | Guarantor Name | Accoun | Relation to | Date | Phone | Billing Address | | | t Type | Patient | of | | | | | | | | | | + +--------+ +--------+ + + | Aline Whitley | Person | Self [birth year] | [address] | | | al/Fam | | 1955 | [phone] | [address] [place], [place] | | | [place] | | | 1 (Home) | [address] | | | | | | [phone] | | | | | | | 3 (Work) | | + +--------+ +--------+ + + | Aline Whitley | Person | Self | [birth year] | | [address] | | | al/Fam | | 1955 | [phone] | [address] [place], [place] | | | [place] | | | 1 (Home) | [address] | + +--------+ +--------+ + + Advance Directives + + + + + | Type | Date Recorded | Patient | Explanation | | | | Reed Dipper | | + + + + + | Power of | | | | | Mechanical Adjuster | | | | + + + + + | Advance | 01/31/2019 9:50 | | | | Directive | PM | | | + + + + + + + + + + | Code Status | Date | Date | Comments | | | Activated | Inactivated | | + + + + + | Full Code | 10/14/2015 | 10/14/2015 | | | | 8:57 AM | 12:24 PM | | + + + + +
--- OUTSIDE RECORDS SUMMARY | ~2019-03-21 | XMS | Encounter Summary ---
Demographics + + + | Address | [address] | | | [place] [address] | + + + | Home Phone | | + + + | Preferred Language | Unknown | + + + | Marital Status | | + + + | Yazidi Affiliation | Unknown | + + + | Race | Unknown | + + + | Ethnic Group | Unknown | + + + Author + + + | Author | [facility] | | | and Keshawnana | + + + | Organization | [facility] | | | and [...] Team Providers + +------+ + | Care Steel Unloader Name | Role | Phone | + +------+ + PCP | Unavailable | + +------+ + Reason for Visit + + + | Reason | Comments | + + + | Constipation | | + + + Encounter Details +--------+ + + + + | Date | Type | Department | Care Team | Description | +--------+ + + + + | 12/07/ | Emergency | [facility] | [place], | Fecal impaction in | | 2015 | | [facility] | Anjum Martinez MD [address] | rectum ([facility], [facility]IN [facility]) | | | | CENTER [address] | [address] [place] | (Primary Dx) | | | | [place], [place] | [place] [address] | | | | | [address] | [phone] | | | | | [phone] | | | +--------+ + + + + Social History + +-------+ +--------+------+ | Tobacco Use | Types | Packs/Day | Years | Date | | | | | Used | | + +-------+ +--------+------+ | Never Smoker | | | | | + +-------+ +--------+------+ + + +---------+ + | Alcohol Use [...] + + + | Blood Pressure | 142/80 | 12/07/2014 10:08 AM | | | | | PDT | | + + + + + | Pulse | 90 | 12/07/2014 10:08 AM | | | | | PDT | | + + + + + | Temperature | 37.4 C (99.3 F) | 12/07/2014 10:08 AM | | | | | PDT | | + + + + + | Respiratory Rate | 16 | 12/07/2014 10:08 AM | | | | | PDT | | + + + + + | Oxygen Saturation | 97% | 12/07/2014 10:08 AM | | | | | PDT | | + + + + + | Inhaled Oxygen | - | - | | | Concentration | | | | + + + + + | Weight | 108.9 kg (240 lb) | 12/07/2014 10:08 AM | | | | | PDT | | + + + + + | Height | 165.1 cm (5' 5") | 12/07/2014 10:08 AM | | | | | PDT | | + + + + + | Body Mass Index | 39.94 | 12/07/2014 10:08 AM | | | | | PDT | | + + + + + documented in this encounter Discharge Instructions Instructions Anjum Humphrey MD - 12/07/2014Formatting of this note might be differe nt from the original. Drink plenty of liquids. Use laxatives as needed to help with constipation. I recommend you establish care with a primary provider, below is a list of [facility] group providers currently accepting new patients Primary Care Accepting New Patients 12/07/2014 Dr. Anjum Abraham Family Medicine Scheduling Special interest in geriatrics. Dr. Luigi Tena Family Medicine Scheduling Dr. Dusty Snider Family Medicine Obstetrics Scheduling Full scope family medicine- including obstetrics, pediatrics and adult medicine. [facility] Martinez Family Medicine Scheduling Special interest in OB Care, Pediatrics [address] [place] [phone] AttachmentsThe following attachments cannot be sent through Care Everywhere.FECAL IMPACTION , TREATED (TAJIK)CONSTIPATION (ADULT) (TAJIK)documented in this encounter Medications at Time of [...] + +---------+ + + | azaTHIOprine | 1/2 tablet by mouth | | 0 | 01/12/20 | | | (IMURAN) 50 mg | daily | | | 12 | 7 | | tablet | | | | | | + + + +---------+ + + | buPROPion | Take 100 mg by mouth | | 0 | 01/12/20 | | | (WELLBUTRIN SR) 100 | Daily. | | | 12 | 6 | | mg 12 hr tablet | | | | | | + + + +---------+ + + | furosemide (LASIX) | Take 40 mg by mouth | | 0 | 01/12/20 | | | 40 mg tablet | Daily. | | | 12 | 7 | + + + +---------+ + + | levothyroxine | Take 100 mcg by | | 0 | 01/12/20 | | | (SYNTHROID, | mouth Daily. | | | 12 | 6 | | LEVOTHROID) 100 mcg | | | | | | | tablet | | | | | | + + + +---------+ + + | omeprazole | Take 20 mg by mouth | | 0 | 01/12/20 | | | (PRILOSEC) 20 mg | Daily. | | | 12 | 6 | | capsule | | | | | | + + + +---------+ + + | traMADol (ULTRAM) | Take 50 mg by mouth | | 0 | 01/12/20 | | | 50 mg tablet | as needed. | | | 12 | 6 | + + + +---------+ + + documented as of this encounter Plan of Treatment Not on filedocumented as of this encounter Procedures + +--------+ + + + | Procedure Name | Priori | Date/Time | Associated Diagnosis | Comments | | | ty | | | | + +--------+ + + + | XR ABDOMEN AP | STAT | 12/07/2014 | | Results for this | | | | 12:40 PM | | procedure are in the | | | | PDT | | results section. | + +--------+ + + + documented in this encounter Results XR Abdomen AP (12/07/2014 12:40 PM PDT) + + | Specimen | + + | | + + + + + | Narrative | Performed At | + + + | SINGLE VIEW ABDOMEN 12/07/2014 12:31 PM CLINICAL HISTORY: | [facility] | | Abdominal pain COMPARISON: None available FINDINGS: Gas and a | | | small to moderate volume of stool are noted at the level of the | | | ascending colon. Nondilated, gas-filled small bowel is suggested in | | | the right mid abdomen and additional partially gas-filled small bowel | | | segments are suggested in the central abdomen. There is paucity of | | | bowel gas otherwise. No free air is visible on the supine image | | | provided. A tiny calcification in the right pelvic cavity favors a | | | phlebolith. There is multilevel spondylosis. Organ shadows and | | | osseous structures are otherwise unremarkable. IMPRESSION - 1. | | | NON-SPECIFIC BOWEL GAS PATTERN WITH A PAUCITY OF DISTAL BOWEL GAS | | | AND SOME GAS CONTAINING SMALL BOWEL SEGMENTS, WHICH COULD REFLECT | | | EARLY OBSTRUCTION. CONSIDER INTERVAL RADIOGRAPHIC VERSUS CT | | | FOLLOW-UP. Dictated and Signed by: Neftaly Samuel MD | | | Electronically signed: 12/07/2014 3:37 PM | | + + + + + | Procedure Note | + + | Vitaly, Rad Results In - 12/07/2014 3:40 PM PDT SINGLE VIEW ABDOMEN 12/07/2014 12:31 PM | | | | CLINICAL HISTORY: Abdominal pain | | | | COMPARISON: None available | | | | FINDINGS: Gas and a small to moderate volume of stool are noted at the level of | | the ascending colon. Nondilated, gas-filled small bowel is suggested in the | | right mid abdomen and additional partially gas-filled small bowel segments are | | suggested in the central abdomen. There is paucity of bowel gas otherwise. No | | free air is visible on the supine image provided. A tiny calcification in the | | right pelvic cavity favors a phlebolith. There is multilevel spondylosis. | | Organ shadows and osseous structures are otherwise unremarkable. | | | | IMPRESSION - | | | | 1. NON-SPECIFIC BOWEL GAS PATTERN WITH A PAUCITY OF DISTAL BOWEL GAS AND SOME | | GAS CONTAINING SMALL BOWEL SEGMENTS, WHICH COULD REFLECT EARLY OBSTRUCTION. | | CONSIDER INTERVAL RADIOGRAPHIC VERSUS CT FOLLOW-UP. | | | | Dictated and Signed by: Neftaly Samuel MD | | Electronically signed: 12/07/2014 3:37 PM | + + + +---------+ + + | Performing | Address | City/State/Zipcode | Phone Number | | Organization | | | | + +---------+ + + | [facility] | | | | + +---------+ + + documented in this encounter Visit Diagnoses + + | Diagnosis | + + | Fecal impaction in rectum (HCC) - Primary Fecal impaction | + + documented in this encounter Administered Medications + +--------+ +------+------+------+ | Medication Order | MAR | Action | Dose | Rate | Site | | | Action | Date | | | | + +--------+ +------+------+------+ | LORazepam (ATIVAN) tablet 1 mg | Given | 12/08/19 | 1 mg | | | | 1 mg, Oral, ONCE, 12/07/14 at | | 15 11:05 | | | | | 1130, For 1 dose | | AM PDT | | | | + +--------+ +------+------+------+ +---+---+ | | | +---+---+ + +-------+ +---------+---+---+ | magnesium citrate liquid 300 mL | Given | 12/08/19 | 300 mLs | | | | 300 mL, Oral, ONCE, 12/07/14 | | 15 12:49 | | | | | at 1300, For 1 dose | | PM PDT | | | | + +-------+ +---------+---+---+ +---+---+ | | | +---+---+ + +-------+ +---------+---+---+ | sodium phosphate (FLEET) enema | Given | 12/08/19 | 133 mLs | | | | 133 mL 133 mL, Rectal, ONCE, Sun | | 15 11:10 | | | | | 12/07/14 at 1115, For 1 dose | | AM PDT | | | | + +-------+ +---------+---+---+ +---+---+ | | | +---+---+ + +-------+ +-------+---+---+ | traMADol (ULTRAM) tablet 50 mg | Given | 12/08/19 | 50 mg | | | | 50 mg, Oral, ONCE, Ivet 12/07/14 at | | 15 11:05 | | | | | 1130, For 1 dose | | AM PDT | | | | + +-------+ +-------+---+---+ +---+---+ | | | +---+---+ documented in this encounter
--- OUTSIDE RECORDS SUMMARY | ~2019-03-21 | XMS | Clinical Summary ---
Demographics + + + | Address | [address] | | | [place] [address] | + + + | Home Phone | | + + + | Preferred Language | Unknown | + + + | Marital Status | | + + + | Roman Catholic Affiliation | Unknown | + + + | Race | Unknown | + + + | Ethnic Group | Unknown | + + + Author + + + | Author | [facility] | | | and Keshawnana | + + + | Organization | [facility] | | | and [place] [...] Team Providers + +------+ + | Care Industrial Roof Plumber Name | Role | Phone | + [...] | | | N: | | | [id number] | | | [id number] | | | riteri | | | [...] | | | St. | | | [place] | | | y | | | [...] | | | St. | | | [place] | | | y | | | [...] | | | St. | | | [place] | | | y | | | [...] Acuity | | | | | | [place] | | | | | | Health [...] | | | St. | | | [place] | | | y | | | [...] | | | 2019 | | | [place] | | | | | | Health [...] | | | St. | | | [place] | | | y H. | | | [place] | | | [place] | | | Emerge | | | ncy | | | Chief | | | Compla | | | int: | | | SHAKY | | | Sep | | | 1, | | | 2019 | | | [facility] | | | [facility] | | | [place] | | | y H. | | [...] | | | St. | | | [place] | | | y H. | | [...] | | | St. | | | [place] | | | y H. | | [...] | | | St. | | | [place] | | | y H. | | [...] | | | 2019 | | | [place] | | | | | | Health [...] | | | St. | | | [place] | | | y H. | | [...] | | | St. | | | [place] | | | y H. | | [...] MD | | | | | | Manager Child | | | al | | | [...] | | | N, | | | SENIOR INFORMATION DEVELOPER-C | | | Nurse | | | [...] | | | MRN: | | | [id number] | | | [id number] | | | riteri | | | [...] | | | St. | | | [place] | | | y | | | [...] | | | St. | | | [place] | | | y | | | [...] | | | St. | | | [place] | | | y | | | [...] Acuity | | | | | | [place] | | | | | | Health [...] | | | St. | | | [place] | | | y | | | [...] | | | 2019 | | | [place] | | | | | | Health [...] | | | St. | | | [place] | | | y H. | | | [place] | | | [place] | | | Emerge | | | ncy | | | Chief | | | Compla | | | int: | | | SHAKY | | | Sep | | | 1, | | | 2019 | | | [facility] | | | [facility] | | | [place] | | | y H. | | [...] | | | St. | | | [place] | | | y H. | | [...] | | | St. | | | [place] | | | y H. | | [...] | | | St. | | | [place] | | | y H. | | [...] | | | St. | | | [place] | | | y H. | | [...] | | | St. | | | [place] | | | y H. | | [...] | | | St. | | | [place] | | | y H. | | [...] | | | 2018 | | | [place] | | | | | | Health [...] | | | St. | | | [place] | | | y H. | | [...] MD | | | | | | Manager Child | | | al | | | [...] | | | N, | | | SENIOR INFORMATION DEVELOPER-C | | | Nurse | | | [...] | | | N: | | | [id number] | | | [id number] | | | riteri | | | [...] | | | St. | | | [place] | | | y | | | [...] | | | St. | | | [place] | | | y | | | [...] | | | St. | | | [place] | | | y | | | [...] | | | St. | | | [place] | | | y | | | [...] | | | St. | | | [place] | | | y H. | | | [place] | | | [place] | | | Emerge | | | ncy | | | Chief | | | Compla | | | int: | | | SHAKY | | | Sep | | | 1, | | | 2019 | | | [facility] | | | [facility] | | | [place] | | | y H. | | [...] | | | St. | | | [place] | | | y H. | | [...] | | | St. | | | [place] | | | y H. | | [...] | | | St. | | | [place] | | | y H. | | [...] | | | St. | | | [place] | | | y H. | | [...] | | | St. | | | [place] | | | y H. | | [...] | | | St. | | | [place] | | | y H. | | [...] | | | St. | | | [place] | | | y H. | | [...] | | | St. | | | [place] | | | y H. | | [...] | | | 2018 | | | [place] | | | | | | Health [...] | | | St. | | | [place] | | | y H. | | [...] MD | | | | | | Manager Child | | | al | | | [...] | | | N, | | | SENIOR INFORMATION DEVELOPER-C | | | Nurse | | | [...] | | | [id number] | | | [id number] | | | 09 | | | [...] + | [facility] | [address] | [place] | [phone] | | [facility] | | [address] | | | - LABORATORY | | [...] + | [facility] | [address] | [place], [place] | [phone] | | [facility] | | [address] | | | - LABORATORY | | [...] [address] | [place] | [phone] | | [facility] | | [address] | | | - LABORATORY | | [...] | 0.77 | 0.55 - 1.02 | [facility] | | | | mg/dL [...] mL/min/1.73m2 | [facility] | | | [facility] | RATE,ESTIMATED | | MEDICAL | | | | mL/min/1.33j1Qkry than | | CENTER - | | [...] + | [facility] | [address] | [place] | [phone] | | [facility] | | [address] | | | - LABORATORY | | [...] ordering provider, | | | by the bleach boiler puller, immediately following the exam. Dictated | | [...] to the ordering provider, by the | |bleach boiler puller, immediately following the exam. | | | [...] Stain | Testing performed at | | [facility] | | | Result | [facility];[address] | | LABORATORY | | | | [place] [address] | | | | + + + + + + | RESULT | NO GROWTH 4 DAYS | | [facility] | | | | | | LABORATORY | | + + + + + + | RESULT | Testing performed at | | [facility] | | | | TCL, [address] [facility] [address] | | LABORATORY | | | | [place] | | | | | | [id number]: Testing | | | | | | performed at [facility], [address] | | | | | | [address], [place] | | | | | | [address] | | | | + + + + + + + + | Specimen | + + | Body Fluid - Ascitic | | fluid sample | | (specimen) | + + + + + + + | Performing | Address | City/State/Zipcode | Phone Number | | Organization | | | | + + + + + | [facility] | [address] | [place] [address] | [phone] | + + + + + Cell [...] + + + | BF RBC | <74096 | /mm3 | [facility] | | | [...] | | | Counted | performed at [facility] | | LABORATORY | | | | [address];[place], [place] | | | | | | [id number] ON 02/01 | | | | | [...] | + + + + + | [facility] | [address] | [place] [address] | [phone] | + + + + + Urinalysis [...] - 1.030 | [facility] | | | [place], | | | LABORATORY | | | [...] | | | OXALATE | performed at [facility];[address] | | LABORATORY | | | [address] | [address];[place], [place] | | | | | | [address] | | | | + + + [...] | + + + + + | [facility] | [address] | [place] [address] | [phone] | + + + + + Lipase (01/31/2019 9:42 PM PDT) + + + + + + | Component | Value | Ref Range | Performed | Pathologist | | | | | At | Signature | + + + + + + | Lipase | 66 (H)Comment: Testing | 12 - 53 U/L | KR | | | | performed at [facility];[address] | | LABORATORY | | | | [facility];[place], [place] | | | | | | [address] | | | | + + + + + + + + | Specimen | + + | Blood | + + + + + + + | Performing | Address | City/State/Zipcode | Phone Number | | Organization | | | | + + + + + | [facility] | [address] | [place] [address] | [phone] | + + + + + PTT [...] ST. | [address] | [place], [place] | [phone] | | [facility] | | [address] | | | - LABORATORY | | [...] + | [facility] | [address] | [place] | [phone] | | [facility] | | [address] | | | - LABORATORY | | [...] [address] | [place] | [phone] | | [facility] | | [address] | | | - LABORATORY | | [...] +--------+ +---------+--------+ | MEDICARE | MEDICA | [id number] | | [phone] | | Medica | | | RE | | 019-Pr | 5 | | re | | | PART A | | esent | | | | | | AND B | | | | | | + +--------+ +--------+ +---------+--------+ | MEDICARE | MEDICA | [id number] | | [phone] | | Medica | | | RE | | 019-Pr | 5 | | re | | | PART A | | esent | | | | | | AND B | | | | | | + +--------+ +--------+ +---------+--------+ | [facility] | IHS | [id number] | 12/07/19 | | | Indemn | | SERVICE | YELLOW | | 15-Pre | | | ity | | | HAWK | | sent | | | | + +--------+ +--------+ +---------+--------+ | [place]ID [place] | MEDICA | [id number] | | [phone] | | Medica | | | [place] | | 018-Pr | 2 | | id | | | PLUS | | esent | | | | + +--------+ +--------+ +---------+--------+ | [place]ID [place] | MEDICA | [id number] | | [phone] | | Medica | | | ID [...] Person | Self [birth year] | [address] | | | al/Fam | | 1955 | [phone] | [address] [place], [place] | | | [place] | | | 1 (Home) | [id number] | | | | | | [phone] | | | | | | | 3 (Work) | | + +--------+ +--------+ + + | Aline Whitley | Person | Self [birth year] | [address] | | | al/Fam | | 1955 | [phone] | [address] [place], [place] | | | [place] | | | 1 (Home) | [id number] | + +--------+ +--------+ + + Advance Directives + + + + + | Type | Date Recorded | Patient | Explanation | | | | Quality Control Systems Manager | | + + + + + | Power of | | | | | [employer] Stripper Etcher | | | | + + + [...]
--- OUTSIDE RECORDS SUMMARY | ~2019-03-21 | XMS | Encounter Summary ---
Demographics + + + | Address | [address] | | | [place] [address] | + + + | Home Phone | | + + + | Preferred Language | Unknown | + + + | Marital Status | | + + + | Gnosticism Affiliation | Unknown | + + + | Race | Unknown | + + + | Ethnic Group | Unknown | + + + Author + + + | Author | [facility] | | | and [place] | + + + | Organization | [facility] | | | and [place] [...] Team Providers + +------+ + | Care Lift Supervisor Name | Role | Phone | + [...] | | | | | | Spine leslie | [address] | | | | | | Contrast | Aniya [address]AMES | | | | | | | [place] | | | | | | | [address] | | +--------+--------+ + + + + Encounter Details +--------+ + + + + | Date | Type | Department | Care Team | Description | +--------+ + + + + | 01/26/ | Imaging | [facility] | Provider, | | | 2017 | Exam | [facility] | MD [facility] [address] | | | | | IMAGING | [place]iya [place]. [place] | | | | | [phone] | [place] [address] | | +--------+ + + + + [...] for comparison only - no result from [facility]. | | + + + + +---------+ + + | Performing | Address | City/State/Zipcode | Phone Number | | Organization | | | | + +---------+ + + | [facility] | | | | + +---------+ + + documented in this encounter Visit Diagnoses Not on filedocumented in this encounter"
--- OUTSIDE RECORDS SUMMARY | ~2019-03-21 | XMS | Encounter Summary ---
Demographics + + + | Address | [address] | | | [place] [address] | + + + | Home Phone | | + + + | Preferred Language | Unknown | + + + | Marital Status | | + + + | Amish Affiliation | Unknown | + + + | Race | Unknown | + + + | Ethnic Group | Unknown | + + + Author + + + | Author | [facility] | | | and [place] | + + + | Organization | [facility] | | | and [place] [...] Team Providers + +------+ + | Care Dormitory Keeper Name | Role | Phone | + +------+ + | Sri Razo | PCP | | + +------+ + Reason for Visit + + + | Reason | Comments | + + + | Abdominal Pain | | + + + Encounter Details +--------+ + + + + | Date | Type | Department | Care Team | Description | +--------+ + + + + | 01/31/ | Emergency | [facility] | Reza Wynn, | Other ascites | | 2019 - | | MEDICAL CENTER | [address] | (Primary Dx); | | | | EMERGENCY CENTER | [place] [address] | Generalized | | 02/01/ | | [address] | [phone] | abdominal pain; | | 2019 | | [place], [place] | | Autoimmune hepatitis | | | | [address] | | (HCC) | | | | [phone] | | | +--------+ + + + [...] + + + | Blood Pressure | 109/57 | 02/01/2019 12:56 AM | | | | | PDT | | + + + + + | Pulse | 94 | 02/01/2019 12:56 AM | | | | | PDT | | + + + + + | Temperature | 36.8 C (98.2 F) | 02/01/2019 12:56 AM | | | | | PDT | | + + + + + | Respiratory Rate | 18 | 02/01/2019 12:56 AM | | | | | PDT | | + + + + + | Oxygen Saturation | 100% | 02/01/2019 12:56 AM | | | | | PDT | | + + + + + | Inhaled Oxygen | - | - | | | Concentration | | | | + + + + + | Weight | 98 kg (216 lb 0.8 | 01/31/2019 7:54 PM | | | | oz) | PDT | | + + + + + | Height | - | - | | + + + + + | Body Mass Index | 35.95 | 01/13/2019 7:18 PM | | | | | PDT | | + + + + + documented in this encounter Discharge Instructions AttachmentsThe following attachments cannot be sent through Care Everywhere.Abdominal Pain, Adult (Frisian)Ascites (Frisian)documented in this encounter Medications at Time of [...] + + +---------+ + + | albuterol | Inhale by mouth. | | 0 | | | | (PROVENTIL HFA) 90 | | | | | | | mcg/puff inhaler | | | | | | + + + +---------+ + + | azaTHIOprine | Take 25 mg by mouth | | 0 | | | | (IMURAN) 50 mg | Daily. | | | | | | tablet | | | | | | + + + +---------+ + + | beclomethasone | Inhale 2 puffs into | 1 | 5 | 10/19/ | | | (QVAR) 80 mcg/puff | [...] + + | furosemide (LASIX) | Take 80 mg by mouth | | 0 | | | | 80 mg tablet | once daily. | | | | | + + + +---------+ + + | furosemide (LASIX) | | | 0 | 08/22/19 | | | 80 mg tablet | | | | 18 | | + + + +---------+ + + | lactulose 10 g/15 | Take 30 mL by mouth | | 0 | | | | mL solution | two times daily. | | | | | + + [...] + + + +---------+ + + | midodrine | Take 10 mg by mouth | | 0 | | | | (PROAMATINE) 10 MG | three times daily. | | | | | | tablet | Administer doses in | | | | | | | 3-4 hour intervals. | | | | | | | Avoid dosing after | | | | | | | the evening meal or | | | | | | | within 4 hours of | | | | | | | bedtime. | | | | | + + + +---------+ + + | omeprazole | Take 40 mg by mouth | | 0 | | | | (PRILOSEC) 40 MG | before breakfast. | | | | | | capsule | | | | [...] + + + +---------+ + + | rifAXIMin | Take 550 mg by | | 0 | | | | (XIFAXAN) 550 mg | mouth. | | | | | | TABS | | | | | | + + + +---------+ + + | simethicone | Take 160 mg by mouth | | 0 | | | | (MYLICON) 80 mg | as needed for | | | | | | chewable tablet | Flatulence. | | | | | + + + +---------+ + + | spironolactone | Take 3 tablets by | | 0 | 07/31/19 | | | (ALDACTONE) 100 MG | mouth once daily. | | | 19 | | | tablet | | | [...] as of this encounter Plan of Treatment + +------+--------+ + + | Name | Type | Priori | Associated Diagnoses | Date/Time | | | | ty | | | + +------+--------+ + + | ED INFORMATION | SUNNY | Routin | | 01/31/2019 7:53 PM | | EXCHANGE | | e | | PDT | + +------+--------+ + + documented as of this encounter Procedures + +--------+ + + + | Procedure Name | Priori | Date/Time | Associated Diagnosis | Comments | | | ty | | | | + +--------+ + + + | ABDOMINAL | Routin | 02/01/2019 | | Results for this | | PARACENTESIS | e | 12:35 AM | | procedure are in the | | | | PDT | | results section. | + +--------+ + + + | CULTURE, BODY FLUID | Routin | 01/31/2019 | | Results for this | | STERILE | e | 11:05 PM | | procedure are in the | | | | PDT | | results section. | + +--------+ + + + | CELL COUNT, BODY | Routin | 01/31/2019 | | Results for this | | FLUID | e | 11:05 PM | | procedure are in the | | | | PDT | | results section. | + +--------+ + + + | URINALYSIS WITH | STAT | [...] | + +--------+ + + + | LIPASE | STAT | 01/31/2019 | | Results for this | | | | 9:42 PM | | procedure are in the | | | | PDT | | results section. | + +--------+ + + + | COMPREHENSIVE | STAT | 01/31/2019 [...] | PDT | | | + +--------+ + + + +---+--------+ | | | | | Proced | | | ure | | | Note - | | | Vitaly, | | | Lab In | | | | | | Hlseve | | | n - | | | 01/31/ | | | 2019 | | | [...] | | | MRN: | | | [id number] | | | [id number] | | | riteri | | | [...] | | | St. | | | [place] | | | y | | | [...] | | | St. | | | [place] | | | y | | | [...] | | | St. | | | [place] | | | y | | | [...] Acuity | | | | | | [place] | | | | | | Health [...] | | | St. | | | [place] | | | y | | | [...] | | | 2019 | | | [place] | | | | | | Health [...] | | | St. | | | [place] | | | y H. | | | [place] | | | [place] | | | Emerge | | | ncy | | | Chief | | | Compla | | | int: | | | SHAKY | | | Sep | | | 1, | | | 2019 | | | [facility] | | | [facility] | | | [place] | | | y H. | | [...] | | | St. | | | [place] | | | y H. | | [...] | | | St. | | | [place] | | | y H. | | [...] | | | St. | | | [place] | | | y H. | | [...] | | | St. | | | [place] | | | y H. | | [...] | | | St. | | | [place] | | | y H. | | [...] | | | St. | | | [place] | | | y H. | | [...] | | | 2018 | | | [place] | | | | | | Health [...] | | | St. | | | [place] | | | y H. | | [...] MD | | | | | | Warehouse Consultant | | | al | | | [...] | | | N, | | | TRAINING PROGRAM MANAGER-C | | | Nurse | | | [...] [email or web address] | | | m | +---+--------+ documented in this encounter Results Abdominal Paracentesis (02/01/2019 12:35 AM PDT) + [...] Stain | Testing performed at | | [facility] | | | Result | [facility];[address] | | LABORATORY | | | [address];[place] [address] | | | | + + + + + + | RESULT | NO GROWTH 4 DAYS | | [facility] | | | | | | LABORATORY | | + + + + + + | RESULT | Testing performed at | | [facility] | | | | TCL, [address] [facility] | | LABORATORY | | | | [place], [place] | | | | | | [id number]: Testing | | | | | | performed at [facility], [address] | | | | | [place], [place] | | | | | | [address] | | | | + + + + + + + + | Specimen | + + | Body Fluid - Ascitic | | fluid sample | | (specimen) | + + + + + + + | Performing | Address | City/State/Zipcode | Phone Number | | Organization | | | | + + + + + | [facility] | [address] | [place] [address] | [phone] | + + + + + Cell [...] + + + | BF RBC | <97116 | /mm3 | [facility] | | | [...] | | | Counted | performed at [facility];[address] | | LABORATORY | | | | [facility];[place], [place] | | | | | | [id number] ON 02/01 | | | | | [...] | + + + + + | [facility] | [address] | [place] [address] | [phone] | + + + + + Urinalysis [...] - 1.030 | [facility] | | | [place], | | | LABORATORY | | | [...] CALCIUM | 4+Comment: Testing | /hpf | [facility] | | | [place] | performed at [facility];[address] | | LABORATORY | | | [address] | [address];[place] | | | | | | [address] | | | | + + + [...] | + + + + + | [facility] | [address] | [place] [address] | [phone] | + + + + + Lipase (01/31/2019 9:42 PM PDT) + + + + + + | Component | Value | Ref Range | Performed | Pathologist | | | | | At | Signature | + + + + + + | Lipase | 66 (H)Comment: Testing | 12 - 53 U/L | SYD | | | | performed at [facility];[address] | | LABORATORY | | | [address];[place], [place] | | | | | | [address] | | | | + + + + + + + + | Specimen | + + | Blood | + + + + + + + | Performing | Address | City/State/Zipcode | Phone Number | | Organization | | | | + + + + + | [facility] | [address] | [place] [address] | [phone] | + + + + + Comprehensive Metabolic Panel (01/31/2019 9:42 PM PDT) + + + + + + | Component | Value | Ref Range | Performed | Pathologist | | | | | At | Signature | + + + + + + | Na | 132 (L) | 135 - 145 | [facility] | | | | | mmol/L | LABORATORY | | + + + + + + | K | 4.2 | 3.5 - 4.9 | [facility] | | | | | mmol/L | LABORATORY | | + + + + + + | Cl | 102 | 99 - 109 mmol/L | [facility] | | | | | | LABORATORY | | + + + + + + | CO2 | 26 | 23 - 32 mmol/L | [facility] | | | | | | LABORATORY | | + + + + + + | Anion Gap | 8 | 5 - 20 mmol/L | [facility] | | | | | | LABORATORY | | + + + + + + | Glucose | 152 (H) | 65 - 99 mg/dL | [facility] | | | | | | LABORATORY | | + + + + + + | BUN | 17 | 8 - 25 mg/dL | [facility] | | | | | | LABORATORY | | + + + + + + | Creatinine | 0.88 | 0.50 - 1.00 | [facility] | | | | | mg/dL | LABORATORY | | + + + + + + | BUN/Creatin | 19 | | [facility] | | | ine Ratio | | | LABORATORY | | + + + + + + | Calcium | 8.3 (L) | 8.5 - 10.5 | [facility] | | | | | mg/dL | LABORATORY | | + + + + + + | Protein, | 7.4 | 6.3 - 8.2 g/dL | [facility] | | | Total | | | LABORATORY | | + + + + + + | Albumin | 2.8 (L) | 3.3 - 4.8 g/dL | [facility] | | | | | | LABORATORY | | + + + + + + | Globulin | 4.6 | 1.3 - 4.9 g/dL | [facility] | | | | | | LABORATORY | | + + + + + + | A/G Ratio | 0.6 (L) | 1.0 - 2.4 | [facility] | | | | | | LABORATORY | | + + + + + + | BILIRUBIN, | 1.8 (H) | 0.1 - 1.5 mg/dL | [facility] | | | TOTAL | | | LABORATORY | | + + + + + + | ALK PHOS | 114 | 35 - 115 U/L | [facility] | | | | | | LABORATORY | | + + + + + + | AST | 43 | 10 - 45 U/L | [facility] | | | | | | LABORATORY | | + + + + + + | ALT | 25 | 10 - 65 U/L | [facility] | | | | | | LABORATORY | | + + + + + + | Estimated | >60Comment: GFR <60: | >60 | [facility] | | | GFR | CHRONIC KIDNEY DISEASE, | mL/min/1.73m2 | LABORATORY | | | | IF FOUND OVER A 3 MONTH | | | | | | PERIOD.GFR <15: KIDNEY | | | | | | FAILURE.FOR | | | | | | AMERICANS, MULTIPLY THE | | | | | | CALCULATED GFR BY | | | | | | 1.210.This eGFR is | | | | | | calculated using the | | | | | | MDRD IDMS traceable | | | | | | equation.Testing | | | | | | performed at [facility];[address] | | | | | | [facility];[place], [place] | | | | | | [address] | | | | + + + + + + + + | Specimen | + + | Blood | + + + + + + + | Performing | Address | City/State/Zipcode | Phone Number | | Organization | | | | + + + + + | [facility] | [address] | [place] [address] | [phone] | + + + + + CBC with Differential (01/31/2019 9:42 PM PDT) + + + + + + | Component | Value | Ref Range | Performed | Pathologist | | | | | At | Signature | + + + + + + | WBC | 6.55 | 3.80 - 11.00 | [facility] | | | | | K/uL | LABORATORY | | + + + + + + | RBC | 3.16 (L) | 3.70 - 5.10 | [facility] | | | | | M/uL | LABORATORY | | + + + + + + | Hemoglobin | 9.3 (L) | 11.3 - 15.5 | [facility] | | | | | g/dL | LABORATORY | | + + + + + + | Hematocrit | 28.1 (L) | 34.0 - 46.0 % | [facility] | | | | | | LABORATORY | | + + + + + + | MCV | 89.0 | 80.0 - 100.0 fl | [facility] | | | | | | LABORATORY | | + + + + + + | MCH | 29.3 | 27.0 - 34.0 pg | [facility] | | | | | | LABORATORY | | + + + + + + | MCHC | 33.0 | 32.0 - 35.5 | [facility] | | | | | g/dL | LABORATORY | | + + + + + + | RDW-SD | 51.2 | 37 - 53 fl | [facility] | | | | | | LABORATORY | | + + + + + + | Platelet | 121 (L) | 150 - 400 K/uL | [facility] | | | Count | | | LABORATORY | | + + + + + + | MPV | 7.3 | fl | [facility] | | | | | | LABORATORY | | + + + + + + | Diff Type | AUTOMATED | | [facility] | | | | | | LABORATORY | | + + + + + + | % | 76.55 | % | [facility] | | | Neutrophils | | | LABORATORY | | + + + + + + | % | 10.04 | % | [facility] | | | Lymphocytes | | | LABORATORY | | + + + + + + | Monocyte % | 10.20 | % | [facility] | | | | | | LABORATORY | | + + + + + + | Eosinophils | 2.02 | % | [facility] | | | % | | | LABORATORY | | + + + + + + | Basophils % | 1.19 | % | [facility] | | | | | | LABORATORY | | + + + + + + | Neutrophils | 5.01 | 1.90 - 7.40 | [facility] | | | , Absolute | | K/uL | LABORATORY | | + + + + + + | Absolute | 0.66 (L) | 1.00 - 3.90 | [facility] | | | Lymphocytes | | K/uL | LABORATORY | | + + + + + + | Absolute | 0.67 | 0.00 - 0.80 | [facility] | | | Monocytes | | K/uL | LABORATORY | | + + + + + + | Eosinophils | 0.13 | 0.00 - 0.50 | [facility] | | | , Absolute | | K/uL | LABORATORY | | + + + + + + | Basophils, | 0.08Comment: Testing | 0.00 - 0.10 | [facility] | | | Absolute | performed at [facility];[address] | K/uL | LABORATORY | | | | [address];[place] | | | | | | [address] | | | | + + + + + + + + | Specimen | + + | Blood | + + + + + + + | Performing | Address | City/State/Zipcode | Phone Number | | Organization | | | | + + + + + | [facility] | [address] | [place] [address] | [phone] | + + + + + documented in this encounter Visit Diagnoses + + | Diagnosis | + + | Other ascites - Primary | + + | Generalized abdominal pain Abdominal pain, generalized | + + | Autoimmune hepatitis (HCC) Autoimmune hepatitis | + + documented in this encounter Administered Medications + + + +--------+------+------+ | Medication Order | MAR | Action | Dose | Rate | Site | | | Action | Date | | | | + + + +--------+------+------+ | lidocaine 1%-EPINEPHrine | Given by | 02/01/20 | 10 mLs | | | | 1:100,000 injection 10 mL 10 mL, | Other | 19 11:05 | | | | | Infiltration, ONCE, Yvonne 01/31/19 | | PM PDT | | | | | at 2150, For 1 dose | | | | | | + + + +--------+------+------+ +---+---+ | | | +---+---+ + +-------+ +------+---+---+ | morphine injection 4 mg 4 mg, | Given | 02/01/20 | 4 mg | | | | Intravenous, ONCE, [facility] 01/31/19 at | | 19 10:25 | | | | | 2140, For 1 dose | | PM PDT | | | | + +-------+ +------+---+---+ +---+---+ | | | +---+---+ + +-------+ +------+---+---+ | morphine injection 4 mg 4 mg, | Given | 02/02/20 | 4 mg | | | | Intravenous, ONCE, [facility] 01/31/19 at | | 19 12:05 | | | | | 2320, For 1 dose | | AM PDT | | | | + +-------+ +------+---+---+ +---+---+ | | | +---+---+ documented in this encounter"
--- OUTSIDE RECORDS SUMMARY | ~2019-03-21 | XMS | Encounter Summary ---
Demographics + + + | Address | [address] | | | [place] [address] | + + + | Home Phone | | + + + | Preferred Language | Unknown | + + + | Marital Status | | + + + | Hindu Affiliation | Unknown | + + + | Race | Unknown | + + + | Ethnic Group | Unknown | + + + Author + + + | Author | [facility] | | | and [place] | + + + | Organization | [facility] | | | and [place] [...] Team Providers + +------+ + | Care Silk Spooler Name | Role | Phone | + +------+ + PCP | Unavailable | + +------+ + Reason for Visit + + + | Reason | Comments | + + + | Follow-up | 6 month | + + + Evaluate & Treat [...] | Disease / | Mild | Morgan M, DO | MD [facility] | | | | Pulmonology | intermittent | [address] | [address] | | | | | asthma, | [place] | [place], | | | | | uncomplicate | WAY | [place] [address] | | | | | d | [place], | Phone: | | | | | Procedures | [place] [address] | [phone] | | | | | F/U 08/01> | Phone: | Fax: | | | | | DOS 09/22> | [phone] | [phone] | | | | | PEND UPDATED | Fax: | | | | | | AUTH FROM | [phone] | | | | | | [facility] | | | +--------+--------+ + + + + Encounter Details +--------+---------+ + + + | Date | Type | Department | Care Team | Description | +--------+---------+ + + + | 09/22/ | Office | [facility] [place] | Duncan Bass, | Mild persistent | | 2018 | Visit | PULMONARY [address] | asthma with acute | | | | [place], | [place] | exacerbation | | | | [place] [address] | [address] | (Primary Dx) | | | | [phone] | | | +--------+---------+ + + + [...] + + + | Blood Pressure | 124/68 | 09/22/2017 3:56 PM | | | | | PDT | | + + + + + | Pulse | 89 | 09/22/2017 3:56 PM | | | | | PDT | | + + + + + | Temperature | - | - | | + + + + + | Respiratory Rate | - | - | | + + + + + | Oxygen Saturation | 93% | 09/22/2017 3:56 PM | room air | | | | PDT | | + + + + + | Inhaled Oxygen | - | - | | | Concentration | | | | + + + + + | Weight | 124.1 kg (273 lb 9.5 | 09/22/2017 3:56 PM | | | | oz) | PDT | | + + + + + | Height | 165.1 cm (5' 5") | 09/22/2017 3:56 PM | | | | | PDT | | + + + + + | Body Mass Index | 45.53 | 09/22/2017 3:56 PM | | | | | PDT | | + + + + + documented in this encounter Progress Notes Duncan Bass MD - 09/22/2017 4:00 PM PDTFormatting of this note might be different f rom the original. Pulmonary Follow Up 09/22/2017 HPI Aline [place] is a 62 y.o. female patient of Morgan Conner, DO here today for follow up of asthma. The patient's last visit was on 02/28/17. Since the last visit she feels like their asthma has been stable. They have not had any acute illnesses resulting in worsening asthma sympt oms. They have not required a burst of prednisone since our last appointment. Specificall y 0 tapers of prednisone have occurred over the interval. Lastly Aline notes 0 ED visits and 0 hospitalizations for asthma have occurred since the last appointment. Their controller medication regimen currently consists of prn ProAir. They do feel like th is medication regimen is effective at controlling their symptoms. Currently Aline is us ing their rescue albuterol, ProAir, 3-4 times a day over the last 6 weeks. Prior 1-2 times per week. Currently Aline reports being able to walk 200 feet at their own pace on level ground b efore becoming symptomatic. They are not exercising regularly. Current exercise consists o f walking. She does cough chronically, and does not produce mucous. Aline does report symptoms of heartburn or acid reflux. Has some heartburn if misses Pr ilosec. They have not had recent symptoms of nasal congestion, runny nose or post nasal drip . New triggers since the last appointment include none. Aline [place] is not smoking cigarettes. The patient have not received this year's influenza vaccination. They are up to date with their Pneumovax but not Prevnar 13. Past Medical History Past Medical History: Diagnosis Date Acid reflux disease Allergic rhinitis Arthritis Autoimmune hepatitis (HCC) Chronic back pain Depression Deviated nasal septum LYLE (dyspnea on exertion) Esophageal varices without bleeding (HCC) Female stress incontinence Hepatosplenomegaly Hypothyroid Insomnia Insomnia Liver cirrhosis (HCC) Mild intermittent asthma without complication 02/28/2017 Obesity Osteoporosis Pneumonia Pneumonia 07/30/2017 admitted [facility] at [facility] Sensorineural hearing loss Thrombocytopenia (HCC) Vitamin D deficiency Allergies: Allergies Allergen Reactions Hydrocodone Itching Oxycodone Itching and Rash insomnia Medications: Current Outpatient Prescriptions: azaTHIOprine (IMURAN) 50 mg tablet, Take 25 mg by mouth Daily., Disp: , Rfl: fexofenadine (JELANI) 180 mg tablet, Take 180 mg by mouth Daily as needed., Disp: , R fl: furosemide (LASIX) 80 mg tablet, , Disp: , Rfl: ibuprofen (ADVIL,MOTRIN) 600 MG tablet, , Disp: , Rfl: levothyroxine (SYNTHROID, LEVOTHROID) 100 mcg tablet, Take 100 mcg by mouth every morn ing (before breakfast)., Disp: , Rfl: omeprazole (PRILOSEC) 40 MG capsule, Take 40 mg by mouth every morning (before break st)., Disp: , Rfl: propranolol (INDERAL) 20 [...] (PPSV23) 12/20/2005 PPD Test 11/02/2010 Objective BP 124/68 | Pulse 89 | Ht 1.651 m (5' 5") | Wt 124.1 kg (273 lb 9.5 oz) | SpO2 93% Comm ent: room air | BMI 45.53 kg/m Appearance: Alert, cooperative, no distress, appears [...] Extremities: Extremities normal, atraumatic, no cyanosis, clubbing. Trace edema to the mid calf bilaterally . Skin: Warm and dry. Lymph nodes: Cervical and supraclavicular nodes normal. Neurologic: Gait normal. Data: None Assessment 1. Apparent asthma exacerbation manifesting with increase shortness of breath and wheez ing. Somewhat surprisingly no obvious evidence of wheezing is noted on exam. Given the patient's symptoms and known history of mild intermittent asthma it is reasonable to initiate therapy for an acute asthma exacerbation. I have also suggested to the patient that we begin an inhaled corticosteroid. Once better control the patient's asthma develops it is reasonable to decrease her dose of inhaled stero ids. I have suggested follow-up in approximately a month to assure that the patient's symptoms h ave improved. The patient is in need of a Prevnar 13. Plan 1. Prednisone 20 mg daily for 5 days. 2. Initiate Qvar 80 g per puff, 2 puffs twice daily. Patient counseled the rinse mouth out after Qvar use. 3. Prevnar 13 with follow-up. 4. Pulmonary clinic follow-up appointment in 4 weeks' time. CC: Morgan Conner DO Tdocumented in this encounter Plan of Treatment Not on filedocumented as of this encounter Visit Diagnoses + + | Diagnosis | + + | Mild persistent asthma with acute exacerbation - Primary Unspecified asthma, with | | exacerbation | + + documented in this encounter
--- OUTSIDE RECORDS SUMMARY | ~2019-03-21 | XMS | Encounter Summary ---
Demographics + + + | Address | [address] | | | [place] [address] | + + + | Home Phone | | + + + | Preferred Language | Unknown | + + + | Marital Status | | + + + | Pentecostalism Affiliation | Unknown | + + + | Race | Unknown | + + + | Ethnic Group | Unknown | + + + Author + + + | Author | [facility] | | | and [place] | + + + | Organization | [facility] | | | and [place] [...] Team Providers + +------+ + | Care Highway Inspector Name | Role | Phone | + +------+ + PCP | Unavailable | + +------+ + Reason for Visit Auth/Cert +--------+--------+ + + + + | Status | Reason | Specialty | Diagnoses / | Referred By | Referred To | | | | | Procedures | Contact | Contact | +--------+--------+ + + + + | | | | Diagnoses | | | | | | | Carpal | | | | | | | tunnel | | | | | | | syndrome of | | | | | | | right wrist | | | | | | | Carpal | | | | | | | tunnel | | | | | | | syndrome of | | | | | | | right wrist | | | | | | | [G56.01] | | | | | | | Procedures | | | | | | | IA REVISE | | | | | | | MEDIAN | | | | | | | N/CARPAL | | | | | | | TUNNEL SURG | | | | | | | RELEASE | | | | | | | CARPAL | | | | | | | TUNNEL | | | +--------+--------+ + + + + Encounter Details +--------+ + + + + | Date | Type | Department | Care Team | Description | +--------+ + + + + | 10/13/ | Anesthesia | [facility] | Asher Bliss MD | | | 2015 | Event | [facility] | [address] | | | | | [address] | [place] | | | | | [place] | [address] | | | | | [address] | | | | | | [phone] | | | +--------+ + + + + Anesthesia Record + + + + + | Procedure Name | Responsible | Anesthesia Start | Anesthesia Stop Time | | | Anesthesiologist | Time | | + + + + + | Right Carpal Tunnel | Asher Bliss MD | 10/14/15 0748 | 10/14/15 0829 | | Release (Right | | | | | Wrist) | | | | + + + + + +----+---+ + + | Da | T | Event | Comment | | te | i | | | | | m | | | | | e | | | +----+---+ + + | 06 | 0 | | | | /1 | 7 | | | | 5/ | 1 | | | | 20 | 0 | | | | 16 | | | | +----+---+ + + | | 0 | An Checkout | Pre-use anesthesia machine/equipment checkout. | | | 7 | | | | | 4 | | | | | 8 | | | +----+---+ + + | | 0 | An Start | Reassessment prior to anesthesia induction/procedure. | | | 7 | | | | | 4 | | | | | 8 | | | +----+---+ + + | | 0 | Antibiotic | | | | 7 | Given | | | | 4 | | | | | 8 | | | +----+---+ + + | | 0 | Preoxygenat | | | | 7 | ed | | | | 5 | | | | | 0 | | | +----+---+ + + | | 0 | An | | | | 7 | Induction | | | | 5 | | | | | 3 | | | +----+---+ + + | | 0 | An | | | | 7 | Intubation | | | | 5 | | | | | 3 | | | +----+---+ + + | | 0 | Breathing | | | | 7 | Spontaneous | | | | 5 | ly | | | | 6 | | | +----+---+ + + | | 0 | First | | | | 8 | Inc/Proc St | | | | 0 | | | | | 7 | | | +----+---+ + + | | 0 | Extubated | | | | 8 | Deep | | | | 2 | | | | | 6 | | | +----+---+ + + | | 0 | an stop | | | | 8 | data | | | | 2 | | | | | 6 | | | +----+---+ + + | | 0 | An Stop | Patient handed off to recovery nurse. | | | 2 | | | | | 9 | | | +----+---+ + + +------+ | Meds | +------+ + +---------+ | Name | Total | + +---------+ | lidocaine 2% | 20 mg | + +---------+ | propofol (DIPRIVAN) injection | 150 mg | | (bolus) (20 mL) | | + +---------+ | ondansetron | 4 mg | + +---------+ | fentaNYL injection (2 mL) | 100 mcg | + +---------+ | ceFAZolin (ANCEF, KEFZOL) 2 g in | 2 g | | sodium chloride 0.9% 50 mL IVPB | | + +---------+ | midazolam | 2 mg | + +---------+ | lactated ringers (LR) infusion | 200 mL | + +---------+ + + | Name | + + | N2O Flow Rate (L/Min) | + + | O2 Flow Rate (L/Min) | + + | Insp O2 | + + | Exp SEV | + + | Exp WILEY | + + | Air Flow Rate (L/Min) | + + + + | No blood administrations on file. | + + +--------+ + + + | Type | Details | Placement | Removal | +--------+ + + + | Brace/ | right thumb spica; 10/14/15; 1001 | 04/25/152112 by | 10/14/15 100 by | | Orthot | | | Sania Monteiro, | | ic/Ort | | | RN | | hosis | | | | +--------+ + + + | Periph | 10/14/15; 06; dyko-[id number] | 10/14/15657 by | 10/14/15 100 by | | eral | catheter system; 18 gauge, 05/04 | Eva Pradhan RN | Sania Monteiro, | | IV | in length; distraction, | | RN | | | intradermal injection, tolerated | | | | | well; no longer indicated, | | | | | removed per policy/procedure; | | | | | 10/14/15; 1001 | | | +--------+ + + + | Airway | Placement Date: 10/14/15; | 10/14/15752 by | 10/14/15825 by | | | Placement Time: 752; Airway | Asher Bliss MD | Asher Bliss MD | | | Type: laryngeal mask, oral, | | | | | cuffed; Size: 3; Removal Date: | | | | | 10/14/15; Removal Time: 825 | | | +--------+ + + + | Read | 10/14/15; 814; Right; wrist; | 10/14/15814 by | 10/14/151000 by | | only - | healing within expectations; | Johnny Ferrera RN | Sania Monteiro, | | | 10/14/15; 1001 | | RN | | Incisi | | | | | on | | | | +--------+ + + + documented in this encounter Social History + +-------+ +--------+------+ | Tobacco [...] Visit Diagnoses Not on filedocumented in this encounter Administered Medications + +---------+ +------+------+------+ | Medication Order | MAR | Action | Dose | Rate | Site | | | Action | Date | | | | + +---------+ +------+------+------+ | ceFAZolin (ANCEF, KEFZOL) 2 g | New Bag | 10/14/19 | 2 g | | | | in sodium chloride 0.9% 50 mL | | 16 7:47 | | | | | IVPB 2 g, Intravenous, | | AM PDT | | | | | Administer over 30 Minutes, Prior | | | | | | | to Incision, Starting Wed | | | | | | | 10/14/15 at 0633, For 1 dose, Give | | | | | | | within one hour prior to | | | | | | | incision., Pre-op, Indications: | | | | | | | Surgical Prophylaxis | | | | | | + +---------+ +------+------+------+ +---+---+ | | | +---+---+ + +-------+ +--------+---+---+ | fentaNYL (PF) injection | Given | 10/14/19 | 50 mcg | | | | Intravenous, PRN, Pain, Starting | | 16 8:07 | | | | | 10/14/15 at 0758, Anesthesia | | AM PDT | | | | | Intra-op | | | | | | + +-------+ +--------+---+---+ +-------+ +--------+---+---+ | Given | 10/14/19 | 50 mcg | | | | | 16 7:58 | | | | | | AM PDT | | | | +-------+ +--------+---+---+ +---+---+ | | | +---+---+ + +---------+ +---+---+---+ | lactated ringers (LR) infusion | New Bag | 10/14/19 | | | | | at 10-100 mL/hr, Intravenous, | | 16 7:47 | | | | | CONTINUOUS, Starting 10/14/15 | | AM PDT | | | | | at 0700, TKO., Pre-op | | | | | | + +---------+ +---+---+---+ +---------+ +---+ +---+ | New Bag | 10/14/19 | | 50 mL/hr | | | | 16 6:58 | | | | | | AM PDT | | | | +---------+ +---+ +---+ +---+---+ | | | +---+---+ + +-------+ +-------+---+---+ | lidocaine (PF) 2% injection | Given | 10/14/19 | 20 mg | | | | Intravenous, PRN, Starting Mon | | 16 7:53 | | | | | 10/14/15 at 0753, Anesthesia | | AM PDT | | | | | Intra-op | | | | | | + +-------+ +-------+---+---+ +---+---+ | | | +---+---+ + +-------+ +------+---+---+ | midazolam (VERSED) 1 mg/mL | Given | 10/14/19 | 2 mg | | | | injection Intravenous, PRN, | | 16 7:47 | | | | | Anxiety, Starting Mon10/14/15 at | | AM PDT | | | | | 0747, Anesthesia Intra-op | | | | | | + +-------+ +------+---+---+ +---+---+ | | | +---+---+ + +-------+ +------+---+---+ | ondansetron (ZOFRAN) injection | Given | 10/14/19 | 4 mg | | | | Intravenous, PRN, Nausea, | | 16 7:58 | | | | | Vomiting, Starting Mon10/14/15 at | | AM PDT | | | | | 0758, Anesthesia Intra-op | | | | | | + +-------+ +------+---+---+ +---+---+ | | | +---+---+ + +-------+ +--------+---+---+ | propofol (DIPRIVAN) injection | Given | 10/14/19 | 150 mg | | | | Intravenous, PRN, Starting Wed | | 16 7:53 | | | | | 10/14/15 at 0753, Anesthesia | | AM PDT | | | | | Intra-op | | | | | | + +-------+ +--------+---+---+ +---+---+ | | | +---+---+ documented in this encounter"
--- OUTSIDE RECORDS SUMMARY | ~2019-03-21 | XMS | Encounter Summary ---
Demographics + + + | Address | [address] | | | [place] [address] | + + + | Home Phone | | + + + | Preferred Language | Unknown | + + + | Marital Status | | + + + | Gnosticist Affiliation | Unknown | + + + | Race | Unknown | + + + | Ethnic Group | Unknown | + + + Author + + + | Author | [facility] | | | and [place] | + + + | Organization | [facility] | | | and [...] Team Providers + +------+ + | Care Infection Prevention Coordinator Name | Role | Phone | + [...] + + | 11/07/ | Emergency | [facility] | Velia Smith, | Inflammatory | | 2018 | | [facility] CTR EM[facility] | [address] | arthritis (Primary | | | | CENTER [address] | [facility] | Dx); Acute pain of | | | | [place] | [place] [address] | right knee | | | | [address] | [phone] | | | | | [phone] | | | | | | | Kermit Silverio MD | | | | | | [address] | | | | | | [place] | | | | | | [address] | | | | | | | [...] Discharge Instructions Instructions Velia Smith MD - 11/07/2017Radha brace for up to 2 weeks Crutches Medrol Dosepak Oxycodone for Pain Benadryl for itching Follow-up with orthopedics AttachmentsThe following attachments cannot be sent through Care Everywhere.Knee Pain (Engl orion)Osteoarthritis, What Is (Algerian)documented in this encounter Medications at Time of [...] Culture | No anaerobes isolated. | | [facility] | | | | [...] | + + + + + | [facility] | [address] | [place] | [phone] | | [facility] | | [address] | | | - LABORATORY | | [...] | | | | | | [facility] | | | | | | MEDICAL | | | | | | CENTER - | | | | | | LABORATORY | | + + + + + + | Gram Stain | 1+ White Blood Cells | | [facility] | | | Result | | | [facility] | | | | | | MEDICAL | | | | | | CENTER - | | | | | | LABORATORY | | + + + + + + | Gram Stain | No organisms | | [facility] | | | Result | seenComment: qc ok | | [facility] | | | [...] ST. | [address] | [place] | [phone] | | [facility] | | [address] | | | - LABORATORY | | [...] | Body Fluid, | | Seen | [facility] | | | Qual | | [...] | [address] | [place] | [phone] | | [facility] | | [address] | | | - LABORATORY | | [...] | % | [facility] | | | Macro/Mclennan | | | [facility] | | | | | | MEDICAL | | | | | | CENTER - | | | | | | LABORATORY | | + + + + + + | BF % | 2 | % | [facility] | | | Eosinophils | | | [facility] | | | | | | MEDICAL | | | | | | CENTER - | | | | | | LABORATORY | | + + + + + + | BF Total | 100 | | [facility] | | | Cells | | | [facility] | | | counted | | | [...] + | [facility] | [address] | [place] | [phone] | | [facility] | | [address] | | | - LABORATORY | | [...] | to the ordering provider by the cytometry technologist immediately | | | following the exam. Dictated and Signed by: Knual Parrish MD | | | Electronically signed: 11/07/2017 8:20 PM | | + + + + + | Procedure Note | + + | Vitaly, Rad Results In - 11/07/2017 8:23 PM PDT [...] the ordering provider by the | | cytometry technologist immediately following the exam. | | [...] | [address] | [place] | [phone] | | [facility] | | [address] | | | - LABORATORY | | [...] + | [facility] | [address] | [place] | [phone] | | [facility] | | [address] | | | - LABORATORY | | [...] | [address] | [place] | [phone] | | [facility] | | [address] | | | - LABORATORY | | [...] | [facility] T[facility] | | | [facility] | | [...] ST. | [address] | [place] | [phone] | | [facility] | | [address] | | | - LABORATORY | | [...] | | | Sensitive | | | [facility] | | [...] + | [facility] | [address] | [place] | [phone] | | [facility] | | [address] | | | - LABORATORY | | | | + + + + + Sedimentation Rate (11/07/2017 5:49 PM PDT) + +--------+ + + + | Component | Value | Ref Range | Performed | Pathologist | | | | | At | Signature | + +--------+ + + + | ESR | 70 (H) | <30 mm/hr | [facility] | | | | | [...] + | [facility] | [address] | [place] | [phone] | | [facility] | | [address] | | | - LABORATORY | | [...] | | | | | mg/dL | [facility] | | | | | | MEDICAL | | | | | | CENTER - | | | | | | LABORATORY | | + + + + + + | eGFR if not | >60Comment: GLOMERULAR | >=60 | [facility] | | | | FILTRATION | mL/min/1.73m2 | [facility] | | | ESTONIAN | RATE,ESTIMATED | | MEDICAL | | | | mL/min/1.23m7Bvkb than | | CENTER - | | [...] | ine Ratio | | | [facility] | | [...] | + + + + + | [facility] | [address] | [place] | [phone] | | [facility] | | [address] | | | - LABORATORY | | [...] | | | | M/uL | [facility] | | | | | | MEDICAL | | | | | | CENTER - | | | | | | LABORATORY | | + + + + + + | Hemoglobin | 12.8 | 11.5 - 16.0 | [facility] | | | | | g/dL | [facility] | | | | [...] | | | | | | [facility] | | | | | | MEDICAL [...] | | Lymphocytes | | K/uL | [facility] | | | | | | MEDICAL | | | | | | CENTER - | | | | | | LABORATORY | | + + + + + + | Absolute | 0.40 | 0.00 - 1.00 | [facility] | | | Monocytes | | K/uL | [facility] | | | | | | [...] | [address] | [place] | [phone] | | [facility] | | [address] | | | - LABORATORY | | [...] | Jacobo Haider Results In - 11/07/2017 6:01 PM PDT [...] | 10 mg 10 mg, Oral, ONCE, Mon | | 18 8:58 | | | [...] | | | | | Pain, Starting 11/07/17 at | | | | | | [...] 18 5:45 | | | | | 11/07/17 at 1740, For 1 dose | | PM PDT | | | | + +-------+ +------+---+---+ +---+---+ | | | +---+---+ documented in this encounter
--- OUTSIDE RECORDS SUMMARY | ~2019-03-21 | XMS | Encounter Summary ---
Demographics + + + | Address | [address] | | | [place] [address] | + + + | Home Phone | | + + + | Preferred Language | Unknown | + + + | Marital Status | | + + + | Presybeterian Affiliation | Unknown | + + + | Race | Unknown | + + + | Ethnic Group | Unknown | + + + Author + + + | Author | [facility] | | | and [place] | + + + | Organization | [facility] | | | and [place] [...] Team Providers + +------+ + | Care Director Of Blood Name | Role | Phone | + +------+ + PCP | Unavailable | + +------+ + Encounter Details +--------+ + + + + | Date | Type | Department | Care Team | Description | +--------+ + + + + | 11/10/ | Orders Only | [facility] | Morgan Conner, | | | 2017 | | CONVERSION [address] | [place] [address] | | | | | DEAN LEIGH | [facility] | | | | | [place] | [place] [address] | | | | | [address] | [phone] | | | | | [phone] | | | +--------+ + + + [...] | + +--------+ + + + | ECHO INTERPRETATION | Routin | 11/10/2016 | | Results for this | | OF OUTSIDE FILMS | e | 11:39 AM | | procedure are in the | | | | PDT | | results section. | + +--------+ + + + documented in this encounter Results ECHO Interpretation of Outside Films (11/10/2016 11:39 AM PDT) + + | Specimen | + + | | + + + + + | Impressions | Performed At | + + + | 1. The left ventricle is normla in size, wall thickness and | | | hyperdynamic systolic function EF >70%. 2. The right ventricle is | | | normal in size and systolic function. 3. No significant valvular | | | pathology. 4. There is no pericardial effusion. | | + + + + + + | Narrative | Performed At | + + + | Patient Name: Svitlana Whitley Date of : 1955 | | | Performing Physician: Obie Chávez | | | | | | INDICATIONS Dyspnea CONCLUSIONS 1. The | | | left ventricle is normla in size, wall thickness and hyperdynamic | | | systolic function EF >70%. 2. The right ventricle is normal in size | | | and systolic function. 3. No significant valvular pathology. 4. | | | There is no pericardial effusion. FINDINGS -------- ECG rhythm: | | | Sinus rhythm. Study: A 2-dimensional transthoracic echocardiogram | | | with m-mode, spectral and color flow Doppler was perfomed. Study: | | | This was a technically difficult study with suboptimal views. Left | | | Ventricle: Left ventricular systolic function is hyperdynamic with an | | | estimated EF of >70%. Left Ventricle: The left ventricle cavity size | | | is normal. Left Ventricle: Left ventricular wall thickness is normal. | | | Left Ventricle: The diastolic filling pattern is normal for the age | | | of the patient. Right Ventricle: The right ventricle is normal in | | | size. Right Ventricle: The right ventricular systolic function is | | | normal. Left Atrium: The left atrial size is normal. Right Atrium: | | | The right atrial size is normal. Aortic Valve: Aortic valve is | | | trileaflet. Aortic Valve: There is mild aortic valve sclerosis | | | without stenosis. Aortic Valve: There is no evidence of aortic | | | regurgitation. Mitral Valve: The mitral valve is normal. Mitral | | | Valve: No mitral regurgitation. Tricuspid Valve: The tricuspid valve | | | appears structurally normal. Tricuspid Valve: Trace tricuspid | | | regurgitation present. Tricuspid Valve: There is no evidence of | | | pulmonary hypertension. Tricuspid Valve: The right ventricular | | | systolic pressure (pulmonary artery systolic pressure), as measured by | | | Doppler, is 27.08mmHg. Pulmonic Valve: The pulmonic valve was not | | | well visualized. Pulmonic Valve: No significant valvular pathology. | | | Pericardium: There is no pericardial effusion. Pericardium: No | | | pleural effusion seen. IVC/Hepatic Veins: The IVC is normal size | | | (1.5-2.5cm) and collapses >50% with sniff, consistent with central | | | venous pressures of 5-10mmHg. Aorta: The aortic root, ascending aorta | | | and aortic arch are within normal dimensions. MEASUREMENTS | | | Ao asc: 2.85 cm Ao Diam: 2.77 cm Ao sinus: | | | 2.[address] junct: 2.64 cm IVC: 1.59 cm LA Diam: 3.82 cm | | | LA Major: 5.52 cm EDV(Teich): 67.79 ml IVSd: 0.91 cm | | | LVIDd: 3.94 cm LVPWd: 0.91 cm LVOT Area: 3.04 cm2 LVOT | | | Diam: 1.96 cm %FS: 34.07 % EF(Teich): 63.64 % ESV(Teich): | | | 24.64 ml LVIDs: 2.60 cm SV(Teich): 43.15 ml RA Major: | | | 4.47 cm RV Major: 7.47 cm RVIDd: 3.24 cm LVEF MOD A2C: | | | 62.22 % SV MOD A2C: 47.07 ml LVEF MOD A4C: 65.51 % SV MOD | | | A4C: 44.80 ml EF Biplane: 63.31 % LVEDV MOD BP: 73.43 ml | | | LVESV MOD BP: 26.94 ml LVEDV MOD A2C: 75.65 ml LVLd A2C: | | | 7.61 cm LVEDV MOD A4C: 68.39 ml LVLd A4C: 7.95 cm LVESV MOD | | | A2C: 28.58 ml LVLs A2C: 5.83 cm LVESV MOD A4C: 23.59 ml | | | LVLs A4C: 6.34 cm LAESV(A-L): 42.92 ml LAESV Index (A-L): | | | 19.69 ml/m2 LAAs A2C: 16.50 cm2 LAESV A-L A2C: 43.31 ml LALs | | | A2C: 5.34 cm LAAs A4C: 16.36 cm2 LAESV A-L A4C: 39.12 ml | | | LALs A4C: 5.80 cm RAAs: 10.82 cm2 RAESV A-L: 22.52 ml | | | RAESV MOD: 21.44 ml RALs: 4.41 cm TAPSE: 2.46 cm AV maxPG: | | | 13.17 mmHg AV meanP.06 mmHg AV Vmax: 1.81 m/s AV | | | Vmean: 1.14 m/s AV VTI: 33.72 cm JESSICA Vmax: 1.90 cm2 JESSICA | | | (VTI): 2.15 cm2 AVAI Vmax: 0.00 cm2/m2 AVAI (VTI): 0.00 | | | cm2/m2 LVOT maxP.14 mmHg LVOT meanP.74 mmHg LVSI | | | Dopp: 33.37 ml/m2 LVSV Dopp: 72.76 ml LVOT Vmax: 1.13 m/s | | | LVOT Vmean: 0.78 m/s LVOT VTI: 23.92 cm MV A Jose: 0.74 m/s | | | MV DecT: 242.35 ms MV E Jose: 0.78 m/s MV E/A Ratio: 1.05 | | | MV PHT: 70.28 ms MVA By PHT: 3.13 cm2 Septal e': 0.09 m/s | | | Septal E/e': 7.91 Lateral e': 0.10 m/s Lateral E/e': 7.70 | | | RAP: 5 mmHg RVSP: 27.08 mmHg TR maxP.08 mmHg TR Vmax: | | | 2.34 m/s Transformer Shop Supervisor: FALGUNI Authenticated by: Obie Chávez | | | Report Date/Time: 11-11-2016 06:30:59 | | + + + + ---------+ | Procedure Note | + ---------+ | Jacobo Haider Conversion - 12/20/2018 6:47 PM PDT Patient Name: Austen Whitley of | | : 1955 Performing Physician: Obie | | Alsamara INDICATIONS------ | | -----Dyspnea CONCLUSIONS 1. The left ventricle is normla in size, wall | | thickness and hyperdynamic systolic function EF >70%.2. The right ventricle is normal in | | size and systolic function.3. No significant valvular pathology.4. There is no | | pericardial effusion. FINDINGS--------ECG rhythm: Sinus rhythm.Study: A 2-dimensional | | transthoracic echocardiogram with m-mode, spectral and color flow Doppler was | | perfomed.Study: This was a technically difficult study with suboptimal views.Left | | Ventricle: Left ventricular systolic function is hyperdynamic with an estimated EF of | | >70%.Left Ventricle: The left ventricle cavity size is normal.Left Ventricle: Left | | ventricular wall thickness is normal.Left Ventricle: The diastolic filling pattern is | | normal for the age of the patient.Right Ventricle: The right ventricle is normal in | | size.Right Ventricle: The right ventricular systolic function is normal.Left Atrium: The | | left atrial size is normal.Right Atrium: The right atrial size is normal.Aortic Valve: | | Aortic valve is trileaflet.Aortic Valve: There is mild aortic valve sclerosis without | | stenosis.Aortic Valve: There is no evidence of aortic regurgitation.Mitral Valve: The | | mitral valve is normal.Mitral Valve: No mitral regurgitation.Tricuspid Valve: The | | tricuspid valve appears structurally normal.Tricuspid Valve: Trace tricuspid | | regurgitation present.Tricuspid Valve: There is no evidence of pulmonary | | hypertension.Tricuspid Valve: The right ventricular systolic pressure (pulmonary artery | | systolic pressure), as measured by Doppler, is 27.08mmHg.Pulmonic Valve: The pulmonic | | valve was not well visualized.Pulmonic Valve: No significant valvular | | pathology.Pericardium: There is no pericardial effusion.Pericardium: No pleural effusion | | seen.IVC/Hepatic Veins: The IVC is normal size (1.5-2.5cm) and collapses >50% with | | sniff, consistent with central venous pressures of 5-10mmHg.Aorta: The aortic root, | | ascending aorta and aortic arch are within normal dimensions. | | MEASUREMENTS Ao asc: 2.85 cmAo Diam: 2.77 cmAo sinus: 2.[address] | | junct: 2.64 cmIVC: 1.59 cmLA Diam: 3.82 cmLA Major: 5.52 cmEDV(Teich): 67.79 | | mlIVSd: 0.91 cmLVIDd: 3.94 cmLVPWd: 0.91 cmLVOT Area: 3.04 gc6MNMP Diam: 1.96 | | cm%FS: 34.07 %EF(Teich): 63.64 %ESV(Teich): 24.64 mlLVIDs: 2.60 cmSV(Teich): | | 43.15 mlRA Major: 4.47 cmRV Major: 7.47 cmRVIDd: 3.24 cmLVEF MOD A2C: 62.22 %SV | | MOD A2C: 47.07 mlLVEF MOD A4C: 65.51 %SV MOD A4C: 44.80 mlEF Biplane: 63.31 | | %LVEDV MOD BP: 73.43 mlLVESV MOD BP: 26.94 mlLVEDV MOD A2C: 75.65 mlLVLd A2C: | | 7.61 cmLVEDV MOD A4C: 68.39 mlLVLd A4C: 7.95 cmLVESV MOD A2C: 28.58 mlLVLs A2C: | | 5.83 cmLVESV MOD A4C: 23.59 mlLVLs A4C: 6.34 cmLAESV(A-L): 42.92 mlLAESV Index | | (A-L): 19.69 ml/m2LAAs A2C: 16.50 [id number] A-L A2C: 43.31 mlLALs A2C: 5.34 | | cmLAAs A4C: 16.36 [id number] A-L A4C: 39.12 mlLALs A4C: 5.80 cmRAAs: 10.82 | | [id number] A-L: 22.52 mlRAESV MOD: 21.44 mlRALs: 4.41 cmTAPSE: 2.46 cmAV maxPG: | | 13.17 mmHgAV meanP.06 mmHgAV Vmax: 1.81 m/Stephie Vmean: 1.14 m/Stephie VTI: 33.72 | | cmAVA Vmax: 1.90 cm2AVA (VTI): 2.15 is4NWUT Vmax: 0.00 cm2/m2AVAI (VTI): 0.00 | | cm2/m2LVOT maxP.14 mmHgLVOT meanP.74 mmHgLVSI Dopp: 33.37 ml/m2LVSV Dopp: | | 72.76 mlLVOT Vmax: 1.13 m/sLVOT Vmean: 0.78 m/sLVOT VTI: 23.92 cmMV A Jose: | | 0.74 m/sMV DecT: 242.35 msMV E Jose: 0.78 m/sMV E/A Ratio: 1.05MV PHT: 70.28 | | msMVA By PHT: 3.13 tx3Hanaoe e': 0.09 m/sSeptal E/e': 7.91Lateral e': 0.10 | | m/sLateral E/e': 7.70RAP: 5 mmHgRVSP: 27.08 mmHgTR maxP.08 mmHgTR Vmax: | | 2.34 m/s Transformer Shop Supervisor: ANNETTAuthenticated by: Obie Finkcleveland clinic south pointe hospitalReport Date/Time: 11-11-2016 | | 06:30:59 IMPRESSION: 1. The left ventricle is normla in size, wall thickness and | | hyperdynamic systolic function EF >70%.2. The right ventricle is normal in size and | | systolic function.3. No significant valvular pathology.4. There is no pericardial | | effusion. | |Ao Diam: 2.77 cm | |Ao sinus: 2.94 cm | |Ao st junct: 2.64 cm | |IVC: 1.59 cm | |LA Diam: 3.82 cm | |LA Major: 5.52 cm | |EDV(Teich): 67.79 ml | |IVSd: 0.91 cm | |LVIDd: 3.94 cm | |LVPWd: 0.91 cm | |LVOT Area: 3.04 cm2 | |LVOT Diam: 1.96 cm | |%FS: 34.07 % | |EF(Teich): 63.64 % | |ESV(Teich): 24.64 ml | |LVIDs: 2.60 cm | |SV(Teich): 43.15 ml | |RA Major: 4.47 cm | |RV Major: 7.47 cm | |RVIDd: 3.24 cm | |LVEF MOD A2C: 62.22 % | |SV MOD A2C: 47.07 ml | |LVEF MOD A4C: 65.51 % | |SV MOD A4C: 44.80 ml | |EF Biplane: 63.31 % | |LVEDV MOD BP: 73.43 ml | |LVESV MOD BP: 26.94 ml | |LVEDV MOD A2C: 75.65 ml | |LVLd A2C: 7.61 cm | |LVEDV MOD A4C: 68.39 ml | |LVLd A4C: 7.95 cm | |LVESV MOD A2C: 28.58 ml | |LVLs A2C: 5.83 cm | |LVESV MOD A4C: 23.59 ml | |LVLs A4C: 6.34 cm | |LAESV(A-L): 42.92 ml | |LAESV Index (A-L): 19.69 ml/m2 | |LAAs A2C: 16.50 cm2 | |LAESV A-L A2C: 43.31 ml | |LALs A2C: 5.34 cm | |LAAs A4C: 16.36 cm2 | |LAESV A-L A4C: 39.12 ml | |LALs A4C: 5.80 cm | |RAAs: 10.82 cm2 | |RAESV A-L: 22.52 ml | |RAESV MOD: 21.44 ml | |RALs: 4.41 cm | |TAPSE: 2.46 cm | |AV maxP.17 mmHg | |AV meanP.06 mmHg | |AV Vmax: 1.81 m/s | |AV Vmean: 1.14 m/s | |AV VTI: 33.72 cm | |JESSICA Vmax: 1.90 cm2 | |JESSICA (VTI): 2.15 cm2 | |AVAI Vmax: 0.00 cm2/m2 | |AVAI (VTI): 0.00 cm2/m2 | |LVOT maxP.14 mmHg | |LVOT meanP.74 mmHg | |LVSI Dopp: 33.37 ml/m2 | |LVSV Dopp: 72.76 ml | |LVOT Vmax: 1.13 m/s | |LVOT Vmean: 0.78 m/s | |LVOT VTI: 23.92 cm | |MV A Jose: 0.74 m/s | |MV DecT: 242.35 ms | |MV E Jose: 0.78 m/s | |MV E/A Ratio: 1.05 | |MV PHT: 70.28 ms | |MVA By PHT: 3.13 cm2 | |Septal e': 0.09 m/s | |Septal E/e': 7.91 | |Lateral e': 0.10 m/s | |Lateral E/e': 7.70 | |RAP: 5 mmHg | |RVSP: 27.08 mmHg | |TR maxP.08 mmHg | |TR Vmax: 2.34 m/s | | | |Transformer Shop Supervisor: FALGUNI | |Authenticated by: Obie Chávez | |Report Date/Time: 11-11-2016 06:30:59 | | | |IMPRESSION: | |1. The left ventricle is normla in size, wall thickness and hyperdynamic systolic function EF >70%. | |2. The right ventricle is normal in size and systolic function. | |3. No significant valvular pathology. | |4. There is no pericardial effusion. | + ---------+ documented in this encounter Visit Diagnoses Not on filedocumented in this encounter"
--- OUTSIDE RECORDS SUMMARY | ~2019-03-21 | XMS | Clinical Summary ---
Demographics + + + | Address | [address] | | | [place] [address] | + + + | Home Phone | | + + + | Preferred Language | Unknown | + + + | Marital Status | | + + + | Caodaism Affiliation | Unknown | + + + | Race | Unknown | + + + | Ethnic Group | Unknown | + + + Author + + + | Author | [facility] | | | and [place] | + + + | Organization | [facility] | | | and [place] [...] Team Providers + +------+ + | Care Cottage Attendant Name | Role | Phone | + [...] | | | N: | | | [id number] | | | [id number] | | | riteri | | | a Met | | | Care | | | Guidel | | | ernestien | | | 3 | | | [...] | | | St. | | | [place] | | | y | | | [...] | | | St. | | | [place] | | | y | | | [...] | | | St. | | | [place] | | | y | | | [...] Acuity | | | | | | [place] | | | | | | Health [...] | | | St. | | | [place] | | | y | | | [...] | | | 2019 | | | [place] | | | | | | Health [...] | | | St. | | | [place] | | | y H. | | | [place] | | | [place] | | | Emerge | | | ncy | | | Chief | | | Compla | | | int: | | | SHAKY | | | Sep | | | 1, | | | 2019 | | | [facility] | [facility] | [place] | | | y H. | | [...] | | | St. | | | [place] | | | y H. | | [...] | | | St. | | | [place] | | | y H. | | [...] | | | St. | | | [place] | | | y H. | | [...] | | | 2019 | | | [place] | | | | | | Health [...] | | | St. | | | [place] | | | y H. | | [...] | | | St. | | | [place] | | | y H. 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 | | | MRN: | | | [id number] | | | [id number] | | | riteri | | | [...] | | | St. | | | [place] | | | y | | | [...] | | | St. | | | [place] | | | y | | | [...] | | | St. | | | [place] | | | y | | | [...] Acuity | | | | | | [place] | | | | | | Health [...] | | | St. | | | [place] | | | y | | | [...] | | | 2019 | | | [place] | | | | | | Health [...] | | | St. | | | [place] | | | y H. | | | [place] | | | [place] | | | Emerge | | | ncy | | | Chief | | | Compla | | | int: | | | SHAKY | | | Sep | | | 1, | | | 2019 | | | [facility] | [place] | | | y H. | | [...] | | | St. | | | [place] | | | y H. | | [...] | | | St. | | | [place] | | | y H. | | [...] | | | St. | | | [place] | | | y H. | | [...] | | | St. | | | [place] | | | y H. | | [...] | | | St. | | | [place] | | | y H. | | [...] | | | St. | | | [place] | | | y H. | | [...] | | | 2018 | | | [place] | | | | | | Health [...] | | | St. | | | [place] | | | y H. 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 | | | [place] | | | y | | | [...] | | | St. | | | [place] | | | y | | | [...] | | | St. | | | [place] | | | y | | | [...] | | | St. | | | [place] | | | y | | | [...] | | | St. | | | [place] | | | y H. | | | [place] | | | [place] | | | Emerge | | | ncy | | | Chief | | | Compla | | | int: | | | SHAKY | | | Sep | | | 1, | | | 2019 | | | [facility] | [place] | | | y H. | | [...] | | | St. | | | [place] | | | y H. | | [...] | | | St. | | | [facility] | | | [facility] | | | [place] | | | [place] | | | Emerge | | | ncy | | | abd | | | pain | | | | | | Abdomi | | | nal | | | Pain | | | | | | Other | | | ascite | | | s Jmael | | | 15, | | | 2019 | | | [facility] | [facility] | [place] | | | y H. | | [...] | | | St. | | | [place] | | | y H. | | [...] | | | St. | | | [place] | | | y H. | | [...] | | | St. | | | [place] | | | y H. | | [...] | | | St. | | | [place] | | | y H. | | [...] | | | St. | | | [place] | | | y H. | | [...] | | | St. | | | [place] | | | y H. | | [...] | | | 2018 | | | [place] | | | | | | Health [...] | | | St. | | | [place] | | | y H. 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 | [address] | [place] | [phone] | | [facility] | | [address] | | | - LABORATORY | | [...] + | [facility] | [address] | [place], [place] | [phone] | | [facility] | | [address] | | | - LABORATORY | | [...] [address] | [place] | [phone] | | [facility] | | [address] | | | - LABORATORY | | [...] | 0.77 | 0.55 - 1.02 | [facility] | | | | mg/dL | [facility] | | | | | | [facility] | | | | | | CENTER - | | | | | | LABORATORY | | + + + + + + | eGFR if not | >60Comment: GLOMERULAR | >=60 | [facility] | | | | FILTRATION | mL/min/1.73m2 | [facility] | | | CAMEROONIAN | RATE,ESTIMATED | | MEDICAL | | | | mL/min/1.86c9Axma than | | CENTER - | | [...] + | [facility] | [address] | [place] | [phone] | | [facility] | | [address] | | | - LABORATORY | | [...] ordering provider, | | | by the nutritional yeast supervisor, immediately following the exam. Dictated | | [...] to the ordering provider, by the | |nutritional yeast supervisor, immediately following the exam. | | | [...] Stain | Testing performed at | | [facility] | | | Result | [facility];[address] | | LABORATORY | | | | [place] [address] | | | | + + + + + + | RESULT | NO GROWTH 4 DAYS | | [facility] | | | | | | LABORATORY | | + + + + + + | RESULT | Testing performed at | | [facility] | | | | TCL, [address] | | LABORATORY | | | | [place] | | | | | | [id number]: Testing | | | | | | performed at [facility], [address] | | | | | [address] [place], [place] | | | | | | [address] | | | | + + + + + + + + | Specimen | + + | Body Fluid - Ascitic | | fluid sample | | (specimen) | + + + + + + + | Performing | Address | City/State/Zipcode | Phone Number | | Organization | | | | + + + + + | [facility] | [address] | [place] [address] | [phone] | + + + + + Cell [...] + + + | BF RBC | <15272 | /mm3 | [facility] | | | [...] | performed at [facility] | | LABORATORY | | | | [address];[place], [place] | | | | | | [id number] ON 02/01 | | | | | [...] | + + + + + | [facility] | [address] | [place] [address] | [phone] | + + + + + Urinalysis [...] - 1.030 | [facility] | | | [place], | | | LABORATORY | | | [...] | | | [facility] | [address];[place], [place] | | | | | | [address] | | | | + + + [...] | + + + + + | [facility] | [address] | [place] [address] | [phone] | + + + + + Lipase [...] | | LABORATORY | | | | [facility], [place] | | | | | | [address] | | | | + + + + + + + + | Specimen | + + | Blood | + + + + + + + | Performing | Address | City/State/Zipcode | Phone Number | | Organization | | | | + + + + + | [facility] | [address] | [place] [address] | [phone] | + + + + + PTT [...] ST. | [address] | [place], [place] | [phone] | | [facility] | | [address] | | | - LABORATORY | | [...] + | [facility] | [address] | [place] | [phone] | | [facility] | | [address] | | | - LABORATORY | | [...] [address] | [place] | [phone] | | [facility] | | [address] | | | - LABORATORY | | [...] +--------+ +---------+--------+ | MEDICARE | MEDICA | [id number] | | [phone] | | Medica | | | RE | | 019-Pr | 5 | | re | | | PART A | | esent | | | | | | AND B | | | | | | + +--------+ +--------+ +---------+--------+ | MEDICARE | MEDICA | [id number] | | [phone] | | Medica | | | RE | | 019-Pr | 5 | | re | | | PART A | | esent | | | | | | AND B | | | | | | + +--------+ +--------+ +---------+--------+ | [facility] | [facility] | [id number] | 12/07/19 | | | Indemn | | SERVICE | YELLOW | | 15-Pre | | | ity | | | HAWK | | sent | | | | + +--------+ +--------+ +---------+--------+ | [place]ID [place] | MEDICA | [id number] | | [phone] | | Medica | | | ID [place] | | 018-Pr | 2 | | id | | | PLUS | | esent | | | | + +--------+ +--------+ +---------+--------+ | [place]ICAID [place] | MEDICA | [id number] | | [phone] | | Medica | | | ID [...] Person | Self [birth year] | [address] | | | al/Fam | | 1955 | [phone] | [address] [place], [place] | | | [place] | | | 1 (Home) | [address] | | | | | | [phone] | | | | | | | 3 (Work) | | + +--------+ +--------+ + + | Aline Whitley | Person | Self | [birth year] | | [address] | | | al/Fam | | 1955 | [phone] | [address] [place], [place] | | | [place] | | | 1 (Home) | [address] | + +--------+ +--------+ + + Advance Directives + + + + + | Type | Date Recorded | Patient | Explanation | | | | Rock Picker | | + + + + + | Power of | | | | | Braiding Machine Operator | | | | + + + [...]
--- OUTSIDE RECORDS SUMMARY | ~2019-03-21 | XMS | Encounter Summary ---
Demographics + + + | Address | [address] | | | [place] [address] | + + + | Home Phone | | + + + | Preferred Language | Unknown | + + + | Marital Status | | + + + | Pentecostalism Affiliation | Unknown | + + + | Race | Unknown | + + + | Ethnic Group | Unknown | + + + Author + + + | Author | [facility] | | | and [place] | + + + | Organization | [facility] | | | and [place] | [...] Team Providers + +------+ + | Care Locker Plant Attendant Name | Role | Phone | + +------+ + PCP | Unavailable | + +------+ + Encounter Details +--------+ + + + + | Date | Type | Department | Care Team | Description | +--------+ + + + + | 01/17/ | Imaging | [facility] | Provider, | | | 2018 | Exam | [facility] | [facility] | | | | | IMAGING | Aniya JAMES | | | | | [phone] | [place] [address] | | +--------+ + + + + [...] | + +--------+ + + + | US ABDOMEN COMPLETE | Routin | 07/01/2016 | | Results for this | | | e | 10:00 AM | | procedure are in the | | | | PST | | results section. | + +--------+ + + + documented in this encounter Results US Abdomen Complete (07/01/2016 10:00 AM PST) + + | Specimen | + + | | + + + + + | Narrative | Performed At | + + + | External films for comparison only | [facility] | | | | | No results will be in the chart. | | + + + + +---------+ + + | Performing | Address | City/State/Zipcode | Phone Number | | Organization | | | | + +---------+ + + | [facility] | | | | + +---------+ + + documented in this encounter Visit Diagnoses Not on filedocumented in this encounter"
--- OUTSIDE RECORDS SUMMARY | ~2019-03-21 | XMS | Encounter Summary ---
Demographics + + + | Address | [address] | | | [place] [address] | + + + | Home Phone | | + + + | Preferred Language | Unknown | + + + | Marital Status | | + + + | Sabianist Affiliation | Unknown | + + + | Race | Unknown | + + + | Ethnic Group | Unknown | + + + Author + + + | Author | [facility] | | | and Keshawnana | + + + | Organization | [facility] | | | and [...] Team Providers + +------+ + | Care Marine Cargo Inspector Name | Role | Phone | + +------+ + PCP | Unavailable | + +------+ + Encounter Details +--------+ + + + + | Date | Type | Department | Care Team | Description | +--------+ + + + + | 08/14/ | Hospital | [facility] | Russ | VIR HEP NEC W/O COMA | | 2003 | Encounter | [facility] | MD Uma [address] | W HEP C LADI ([facility]) | | | | CLINICAL DECISION | Kaitlynn England | | | | | [address] | [place] [address] | | | | | [place], [place] | [phone] | | | | | [address] | | | | | | [phone] | | | +--------+ + + + [...] + | Diagnosis | + + | Chronic hepatitis C without mention of hepatic coma | + + documented in this encounter"
--- OUTSIDE RECORDS SUMMARY | ~2019-03-21 | XMS | Encounter Summary ---
Demographics + + + | Address | [address] | | | [place] [address] | + + + | Home Phone | | + + + | Preferred Language | Unknown | + + + | Marital Status | | + + + | Scientology Affiliation | Unknown | + + + | Race | Unknown | + + + | Ethnic Group | Unknown | + + + Author + + + | Author | [facility] | | | and Keshawnana | + + + | Organization | [facility] | | | and [place] [...] Team Providers + +------+ + | Care Social Media Marketing Analyst Name | Role | Phone | + [...] | | Pulmonology | (dyspnea on | [address] | [address] | | | | | exertion) | [place] | [place], | | | | | Procedures | WAY | [place] [address] | | | | | F/U | [place], | Phone: | | | | | | [place] [address] | [phone] | | | | | | Phone: | Fax: | | | | | | [phone] | [phone] | | | | | | Fax: | | | | | | | [phone] | | +--------+--------+ + + + + Encounter Details +--------+---------+ + + + | Date | Type | Department | Care Team | Description | +--------+---------+ + + + | 02/28/ | Office | [facility] | Duncan Bass, | Mild intermittent | | 2017 | Visit | PULMONARY [address] | MD [address] | asthma without | | | | [place], | [place], [place] | complication | | | | [place] [address] | [address] | | | | | [phone] | | | +--------+---------+ + + + [...] every 4 hours, contact your [facility] provider or seek immediate medical attention. If [...] not already have one, talk to your [facility] provider about developing a personalized "Asthma Action [...] turning ching or blue Date Last Reviewed: 04/01/201519995237-0689 [employer]. [address] [place] [address]. All righ ts reserved. This information is [...]
--- OUTSIDE RECORDS SUMMARY | ~2019-03-21 | XMS | Encounter Summary ---
Demographics + + + | Address | [address] | | | [place] [address] | + + + | Home Phone | | + + + | Preferred Language | Unknown | + + + | Marital Status | | + + + | Religion Affiliation | Unknown | + + + | Race | Unknown | + + + | Ethnic Group | Unknown | + + + Author + + + | Author | [facility] | | | and Keshawnana | + + + | Organization | [facility] | | | and [place] [...] Team Providers + +------+ + | Care Front Desk Officer Name | Role | Phone | + [...] | | | | | | | [place] REVISE | | | | | | [...] + + | 10/13/ | Anesthesia | [facility] | Asher Bliss MD | | | 2015 | Event | MED CTR OR INTRA OP | [address] | | | | | [address] | [place] | | | | | [place] | [address] | | | | | [address] | | | | | | [phone] | | | +--------+ + + + [...] + + | Periph | 10/14/15; 06; [id number] | 10/14/15657 by | 10/14/15 100 by [...]
--- OUTSIDE RECORDS SUMMARY | ~2019-03-21 | XMS | Encounter Summary ---
Demographics + + + | Address | [address] | | | [place] [address] | + + + | Home Phone | | + + + | Preferred Language | Unknown | + + + | Marital Status | | + + + | Shinto Affiliation | Unknown | + + + | Race | Unknown | + + + | Ethnic Group | Unknown | + + + Author + + + | Author | [facility] | | | and Keshawnana | + + + | Organization | [facility] | | | and [place] [...] Team Providers + +------+ + | Care Liquor Runner Name | Role | Phone | + +------+ + PCP | Unavailable | + +------+ + Encounter Details +--------+ + + + + | Date | Type | Department | Care Team | Description | +--------+ + + + + | 02/13/ | Imaging | [facility] | Provider, | | | 2018 | Exam | MED CTR EXTERNAL | MD [address] | | | | | IMAGING | Aniya JAMES | | | | | [phone] | [place] [address] | | +--------+ + + + + [...] | US ABDOMEN COMPLETE | Routin | 07/11/2012 | | Results for this | | | e | 7:25 AM | | procedure are in the | | | | PDT | | results section. | + +--------+ + + + documented in this encounter Results US Abdomen Complete (07/11/2012 7:25 AM PDT) + + | Specimen | [...]
--- OUTSIDE RECORDS SUMMARY | ~2019-03-21 | XMS | Clinical Summary ---
Demographics + + + | Address | [address] | | | [place] [address] | + + + | Home Phone | | + + + | Preferred Language | Unknown | + + + | Marital Status | | + + + | Sabianist Affiliation | Unknown | + + + | Race | Unknown | + + + | Ethnic Group | Unknown | + + + Author + + + | Author | [facility] | | | and Keshawnana | + + + | Organization | [facility] | | | and [place] | [...] Team Providers + +------+ + | Care Crab Butcher Name | Role | Phone | + [...] | | | N: | | | [id number] | | | [id number] | | | riteri | | | [...] | | | St. | | | [place] | | | y | | | [...] | | | St. | | | [place] | | | y | | | [...] | | | St. | | | [place] | | | y | | | [...] Acuity | | | | | | [place] | | | | | | Health [...] | | | St. | | | [place] | | | y | | | [...] | | | 2019 | | | [place] | | | | | | Health [...] | | | St. | | | [place] | | | y H. | | | [place] | | | [place] | | | Emerge | | | ncy | | | Chief | | | Compla | | | int: | | | SHAKY | | | Sep | | | 1, | | | 2019 | | | [facility] | | | [facility] | | | [place] | | | y H. | | [...] | | | St. | | | [place] | | | y H. | | [...] | | | St. | | | [place] | | | y H. | | [...] | | | St. | | | [place] | | | y H. | | [...] | | | 2019 | | | [place] | | | | | | Health [...] | | | St. | | | [place] | | | y H. | | [...] | | | St. | | | [place] | | | y H. | | [...] MD | | | | | | Rig Manager | | | al | | | [...] | | | N, | | | JAVA ENGINEER-C | | | Nurse | | | [...] | | | MRN: | | | [id number] | | | [id number] | | | riteri | | | [...] | | | St. | | | [place] | | | y | | | [...] | | | St. | | | [place] | | | y | | | [...] | | | St. | | | [place] | | | y | | | [...] Acuity | | | | | | [place] | | | | | | Health [...] | | | St. | | | [place] | | | y | | | [...] | | | 2019 | | | [place] | | | | | | Health [...] | | | St. | | | [place] | | | y H. | | | [place] | | | [place] | | | Emerge | | | ncy | | | Chief | | | Compla | | | int: | | | SHAKY | | | Sep | | | 1, | | | 2019 | | | [facility] | | | [facility] | | | [place] | | | y H. | | [...] | | | St. | | | [place] | | | y H. | | [...] | | | St. | | | [place] | | | y H. | | [...] | | | St. | | | [place] | | | y H. | | [...] | | | St. | | | [place] | | | y H. | | [...] | | | St. | | | [place] | | | y H. | | [...] | | | St. | | | [place] | | | y H. | | [...] | | | 2018 | | | [place] | | | | | | Health [...] | | | St. | | | [place] | | | y H. | | [...] MD | | | | | | Rig Manager | | | al | | | [...] | | | N, | | | JAVA ENGINEER-C | | | Nurse | | | [...] | | | N: | | | [id number] | | | [id number] | | | riteri | | | [...] | | | St. | | | [place] | | | y | | | [...] | | | St. | | | [place] | | | y | | | [...] | | | St. | | | [place] | | | y | | | [...] | | | St. | | | [place] | | | y | | | [...] | | | St. | | | [place] | | | y H. | | | [place] | | | [place] | | | Emerge | | | ncy | | | Chief | | | Compla | | | int: | | | SHAKY | | | Sep | | | 1, | | | 2019 | | | [facility] | | | [facility] | | | [place] | | | y H. | | [...] | | | St. | | | [place] | | | y H. | | [...] | | | St. | | | [place] | | | y H. | | [...] | | | St. | | | [place] | | | y H. | | [...] | | | St. | | | [place] | | | y H. | | [...] | | | St. | | | [place] | | | y H. | | [...] | | | St. | | | [place] | | | y H. | | [...] | | | St. | | | [place] | | | y H. | | [...] | | | St. | | | [place] | | | y H. | | [...] | | | 2018 | | | [place] | | | | | | Health [...] | | | St. | | | [place] | | | y H. | | [...] MD | | | | | | Rig Manager | | | al | | | [...] | | | N, | | | JAVA ENGINEER-C | | | Nurse | | | [...] | | | [id number] | | | [id number] | | | 09 | | | [...] + | [facility] | [address] | [place] | [phone] | | [facility] | | [address] | | | - LABORATORY | | [...] + | [facility] | [address] | [place], [place] | [phone] | | [facility] | | [address] | | | - LABORATORY | | [...] [address] | [place] | [phone] | | [facility] | | [address] | | | - LABORATORY | | [...] | 0.77 | 0.55 - 1.02 | [facility] | | | | [facility]/dL | [facility] | | | | | | [facility] | | | | | | CENTER - | | | | | | LABORATORY | | + + + + + + | eGFR if not | >60Comment: GLOMERULAR | >=60 | [facility] | | | | FILTRATION | mL/min/1.73m2 | [facility] | | | GERMAN | RATE,ESTIMATED | | MEDICAL | | | | mL/min/1.99n3Avug than | | CENTER - | | [...] + | [facility] | [address] | [place] | [phone] | | [facility] | | [address] | | | - LABORATORY | | [...] ordering provider, | | | by the antiquer, immediately following the exam. Dictated | | [...] to the ordering provider, by the | |antiquer, immediately following the exam. | | | [...] Stain | Testing performed at | | [facility] | | | Result | [facility];[address] | | LABORATORY | | | | [place] [address] | | | | + + + + + + | RESULT | NO GROWTH 4 DAYS | | [facility] | | | | | | LABORATORY | | + + + + + + | RESULT | Testing performed at | | [facility] | | | | TCL, [address] [facility] [facility] | | LABORATORY | | | | [place] | | | | | | [id number]: Testing | | | | | | performed at [facility], [address] | | | | | | [address] [place], [place] | | | | | | [address] | | | | + + + + + + + + | Specimen | + + | Body Fluid - Ascitic | | fluid sample | | (specimen) | + + + + + + + | Performing | Address | City/State/Zipcode | Phone Number | | Organization | | | | + + + + + | [facility] | [address] | [place] [address] | [phone] | + + + + + Cell [...] + + + | BF RBC | <70829 | /mm3 | [facility] | | | [...] | | | Counted | performed at [facility] | | LABORATORY | | | | [address] [place], [place] | | | | | | [id number] ON 02/01 | | | | | [...] | + + + + + | [facility] | [address] | [place] [address] | [phone] | + + + + + Urinalysis [...] - 1.030 | [facility] | | | [place], | | | LABORATORY | | | [...] | | | OXALATE | performed at [facility];[address] | | LABORATORY | | | [address];[place], [place] | | | | | | [address] | | | | + + + [...] | + + + + + | [facility] | [address] | [place] [address] | [phone] | + + + + + Lipase (01/31/2019 9:42 PM PDT) + + + + + + | Component | Value | Ref Range | Performed | Pathologist | | | | | At | Signature | + + + + + + | Lipase | 66 (H)Comment: Testing | 12 - 53 U/L | KR | | | | performed at [facility];[address] | | LABORATORY | | | | [facility], [place] | | | | | | [address] | | | | + + + + + + + + | Specimen | + + | Blood | + + + + + + + | Performing | Address | City/State/Zipcode | Phone Number | | Organization | | | | + + + + + | [facility] | [address] | [place] [address] | [phone] | + + + + + PTT [...] ST. | [address] | [place], [place] | [phone] | | [facility] | | [address] | | | - LABORATORY | | [...] + | [facility] | [address] | [place] | [phone] | | [facility] | | [address] | | | - LABORATORY | | [...] [address] | [place] | [phone] | | [facility] | | [address] | | | - LABORATORY | | [...] +--------+ +---------+--------+ | MEDICARE | MEDICA | [id number] | | [phone] | | Medica | | | RE | | 019-Pr | 5 | | re | | | PART A | | esent | | | | | | AND B | | | | | | + +--------+ +--------+ +---------+--------+ | MEDICARE | MEDICA | [id number] | | [phone] | | Medica | | | RE | | 019-Pr | 5 | | re | | | PART A | | esent | | | | | | AND B | | | | | | + +--------+ +--------+ +---------+--------+ | [facility] | IHS | [id number] | 12/07/19 | | | Indemn | | SERVICE | YELLOW | | 15-Pre | | | ity | | | HAWK | | sent | | | | + +--------+ +--------+ +---------+--------+ | [place] | MEDICA | [id number] | | [phone] | | Medica | | | ID [place] | | 018-Pr | 2 | | id | | | PLUS | | esent | | | | + +--------+ +--------+ +---------+--------+ | [place] | MEDICA | [id number] | | [phone] | | Medica | | | ID [...] Person | Self | [birth year] | | [address] | | | al/Fam | | 1955 | [phone] | [address] [place], [place] | | | [place] | | | 1 (Home) | [address] | | | | | | [phone] | | | | | | | 3 (Work) | | + +--------+ +--------+ + + | Aline Whitley | Person | Self | [birth year] | | [address] | | | al/Fam | | 1955 | [phone] | [address] [place], [place] | | | [place] | | | 1 (Home) | [address] | + +--------+ +--------+ + + Advance Directives + + + + + | Type | Date Recorded | Patient | Explanation | | | | Personnel Coordinator | | + + + + + | Power of | | | | | Farm Service Adviser | | | | + + + [...]
--- OUTSIDE RECORDS SUMMARY | ~2019-03-21 | XMS | Encounter Summary ---
Demographics + + + | Address | [address] | | | [place] [address] | + + + | Home Phone | | + + + | Preferred Language | Unknown | + + + | Marital Status | | + + + | Temple Affiliation | Unknown | + + + | Race | Unknown | + + + | Ethnic Group | Unknown | + + + Author + + + | Author | [facility] | | | and Ksehawnana | + + + | Organization | [facility] | | | and [...] Team Providers + +------+ + | Care Supervisor Sewing Room Name | Role | Phone | + +------+ + PCP | Unavailable | + +------+ + Reason for Visit + + + | Reason | Comments | + + + | Knee Pain | right knee pain ONSET 2 mo | + + + Evaluate & Treat (Routine) +--------+--------+ + + + + | Status | Reason | Specialty | Diagnoses / | Referred By | Referred To | | | | | Procedures | Contact | Contact | +--------+--------+ + + + + | Closed | | Orthopedic | Diagnoses | Dalila, | Kike, | | | | Surgery | Right knee | Morgan Vale DO | Ramon Carver MD | | | | | pain | [address] | [address] | | | | | | [address] | [address] | | | | | | [address] | [place] | | | | | | [place], | [address] Phone: | | | | | | [place] [address] | [phone] | | | | | | Phone: | Fax: | | | | | | [phone] | [phone] | | | | | | Fax: | | | | | | | [phone] | | +--------+--------+ + + + + Encounter Details +--------+---------+ + + + | Date | Type | Department | Care Team | Description | +--------+---------+ + + + | 01/18/ | Office | [facility] | Quirino Olson | Right knee pain, | | 2018 | Visit | ORTHOPEDIC SURGERY | [address] | unspecified | | | | [address] [facility] | Caio Reyes | chronicity (Primary | | | | [place], [place] | [place] [address] | Dx); Primary | | | | [address] | [phone] | osteoarthritis of | | | | [phone] | | right knee; Acute | | | | | | pain of right knee; | | | | | | Peripheral tear of | | | | | | medial meniscus of | | | | | | right knee as | | | | | | current injury, | | | | | | initial encounter | +--------+---------+ + + + Social History [...] + + + | Blood Pressure | - | - | | + + + + + | Pulse | - | - | | + + + + + | Temperature | - | - | | + + + + + | Respiratory Rate | - | - | | + + + + + | Oxygen Saturation | - | - | | + + + + + | Inhaled Oxygen | - | - | | | Concentration | | | | + + + + + | Weight | 120.2 kg (264 lb | 01/18/2018 10:54 AM | | | | 15.9 oz) | PDT | | + + + + + | Height | 165.1 cm (5' 5") | 01/18/2018 10:54 AM | | | | | PDT | | + + + + + | Body Mass Index | 44.1 | 01/18/2018 10:54 AM | | | | | PDT | | + + + + + documented in this encounter Plan of Treatment Not on filedocumented as of this encounter Procedures + +--------+ + + + | Procedure Name | Priori | Date/Time | Associated Diagnosis | Comments | | | ty | | | | + +--------+ + + + | IMAGING REPORT - | | 01/18/2018 | | Results for this | | EXTERNAL SCAN | | 12:00 AM | | procedure are in the | | | | PDT | | results section. | + +--------+ + + + | IMAGING REPORT - | | 11/30/2017 | | Results for this | | EXTERNAL SCAN | | 12:00 AM | | procedure are in the | | | | PDT | | results section. | + +--------+ + + + documented in this encounter Results IMAGING REPORT - EXTERNAL SCAN (01/18/2018 12:00 AM PDT) + + + | Narrative | Performed At | + + + | Ordered by an | | | unspecified provider. | | + + + IMAGING REPORT - EXTERNAL SCAN (11/30/2017 12:00 AM PDT) + + + | Narrative | Performed At | + + + | Ordered by an | | | unspecified provider. | | + + + documented in this encounter Visit Diagnoses + + | Diagnosis | + + | Right knee pain, unspecified chronicity - Primary | + + | Primary osteoarthritis of right knee Primary localized osteoarthrosis, lower leg | + + | Acute pain of right knee | + + | Peripheral tear of medial meniscus of right knee as current injury, initial encounter | + + documented in this encounter Administered Medications + +--------+ +------+------+ + | Medication Order | MAR | Action | Dose | Rate | Site | | | Action | Date | | | | + +--------+ +------+------+ + | betamethasone (CELESTONE | Given | 01/19/20 | 9 mg | | Knee-Rig | | SOLUSPAN) injection 9 mg 9 mg, | | 18 12:00 | | | ht | | Other, ONCE, Yvonne 01/18/18 at 1200, | | PM PDT | | | | | For 1 dose, Shake well. Not for | | | | | | | IV use., | | | | | | + +--------+ +------+------+ + +---+---+ | | | +---+---+ documented in this encounter
--- OUTSIDE RECORDS SUMMARY | ~2019-03-21 | XMS | Encounter Summary ---
Demographics + + + | Address | [address] | | | [place] [address] | + + + | Home Phone | | + + + | Preferred Language | Unknown | + + + | Marital Status | | + + + | Baptism Affiliation | Unknown | + + + | Race | Unknown | + + + | Ethnic Group | Unknown | + + + Author + + + | Author | [facility] | | | and [place] | + + + | Organization | [facility] | | | and [...] Team Providers + +------+ + | Care Shear Assembler Name | Role | Phone | + +------+ + PCP | Unavailable | + +------+ + Reason for Visit + + + | Reason | Comments | + + + | Hand Pain | | + + + Encounter Details +--------+ + + + + | Date | Type | Department | Care Team | Description | +--------+ + + + + | 04/25/ | Emergency | [facility] | Reza Pittman, | Paresthesias in | | 2015 | | [facility] CTR EM[facility] | MD [address] | right hand (Primary | | | | CENTER [address] | [place] | Dx); Acute wrist | | | | [place] | [address] | pain, right | | | | [address] | | | | | | [phone] | | | +--------+ + + + [...] + + + | Blood Pressure | 135/71 | 04/25/2015 8:41 PM | | | | | PST | | + + + + + | Pulse | 96 | 04/25/2015 8:41 PM | | | | | PST | | + + + + + | Temperature | 36.9 C (98.5 F) | 04/25/2015 8:18 PM | | | | | PST | | + + + + + | Respiratory Rate | 16 | 04/25/2015 8:18 PM | | | | | PST | | + + + + + | Oxygen Saturation | 88% | 04/25/2015 8:41 PM | | | | | PST | | + + + + + | Inhaled Oxygen | - | - | | | Concentration | | | | + + + + + | Weight | 116 kg (255 lb 11.7 | 04/25/2015 8:18 PM | | | | oz) | PST | | + + + + + | Height | 165.1 cm (5' 5") | 04/25/2015 8:18 PM | | | | | PST | | + + + + + | Body Mass Index | 42.56 | 04/25/2015 8:18 PM | | | | | PST | | + + + + + documented in this encounter Discharge Instructions AttachmentsThe following attachments cannot be sent through Care Everywhere.PARAESTHESIAS ( IRISH)documented in this encounter Medications at Time of [...] + +---------+ + + | azaTHIOprine | 1 tablet by mouth | | 0 | [...] + +--------+ + + + | XR WRIST RIGHT 3 + | STAT | 04/25/2015 | | Results for this | | VW | | 9:17 PM | | procedure are in the | | | | PST | | results section. | + +--------+ + + + documented in this encounter Results XR Wrist Right 3 + Vw (04/25/2015 9:17 PM PST) + + | Specimen | + + | | + + + + + | Narrative | Performed At | + + + | RIGHT WRIST: 04/25/2015 8:38 PM CLINICAL HISTORY: HAND PAIN | [facility] | | COMPARISON: None FINDINGS: AP, lateral and oblique views of the | | | right wrist. Mild cortical irregularity of the fifth metacarpal | | | suggesting healed fracture. No acute fracture. Distal radial | | | joint surface has a sloping configuration towards the distal ulna. | | | This may be developmental or related to old trauma. Mild subchondral | | | sclerosis of the distal radius. Question mild widening of the | | | scapholunate interval, though this is not well demonstrated in any | | | projection. Joint space narrowing and sclerosis of the triscaphe | | | joint and first metacarpal trapezium joint. Other carpal joint | | | relationships are normal. No radiographic soft tissue | | | abnormalities. IMPRESSION - 1. Osteoarthritic changes at the | | | base of the thumb, at the triscaphe joint and at the radiocarpal | | | joint. Possible scapholunate ligamentous disruption. Question | | | developmental or old trauma deformity of the distal radius. 2. | | | Suspect old healed fracture of the fifth metacarpal. Dictated and | | | Signed by: Richie De La Rosa MD Electronically signed: 04/26/2015 | | | 10:29 AM | | + + + + + | Procedure Note | + + | Vitaly, Rad Results In - 04/26/2015 10:32 AM PST RIGHT WRIST: 04/25/2015 8:38 PM | | | | CLINICAL HISTORY: HAND PAIN | | | | COMPARISON: None | | | | FINDINGS: AP, lateral and oblique views of the right wrist. | | | | Mild cortical irregularity of the fifth metacarpal suggesting healed fracture. | | No acute fracture. | | | | Distal radial joint surface has a sloping configuration towards the distal ulna. | | This may be developmental or related to old trauma. Mild subchondral sclerosis | | of the distal radius. | | | | Question mild widening of the scapholunate interval, though this is not well | | demonstrated in any projection. Joint space narrowing and sclerosis of the | | triscaphe joint and first metacarpal trapezium joint. Other carpal joint | | relationships are normal. | | | | No radiographic soft tissue abnormalities. | | | | IMPRESSION - | | 1. Osteoarthritic changes at the base of the thumb, at the triscaphe joint and | | at the radiocarpal joint. Possible scapholunate ligamentous disruption. Question | | developmental or old trauma deformity of the distal radius. | | | | 2. Suspect old healed fracture of the fifth metacarpal. | | | | Dictated and Signed by: Richie De La Rosa MD | | Electronically signed: 04/26/2015 10:29 AM | + + + +---------+ + + | Performing | Address | City/State/Zipcode | Phone Number | | Organization | | | | + +---------+ + + | [facility] | | | | + +---------+ + + documented in this encounter Visit Diagnoses + + | Diagnosis | + + | Paresthesias in right hand - Primary Disturbance of skin sensation | + + | Acute wrist pain, right | + + documented in this encounter Administered Medications + + + +------+------+------+ | Medication Order | MAR | Action | Dose | Rate | Site | | | Action | Date | | | | + + + +------+------+------+ | LORazepam (ATIVAN) 1 mg tablet | Dispense | 04/25/20 | 1 mg | | | | (ER Prepack) 1 mg 1 mg, Oral, | to Home | 15 9:08 | | | | | EVERY 6 HOURS PRN, muscle spasm, | | PM PST | | | | | Starting 04/25/15 at 2051, 1 | | | | | | | tablet(s) every 6 hours prn | | | | | | | anxiety Dispense for home use., | | | | | | + + + +------+------+------+ +---+---+ | | | +---+---+ documented in this encounter
--- OUTSIDE RECORDS SUMMARY | ~2019-03-21 | XMS | Encounter Summary ---
Demographics + + + | Address | [address] | | | [place] [address] | + + + | Home Phone | | + + + | Preferred Language | Unknown | + + + | Marital Status | | + + + | Sabianism Affiliation | Unknown | + + + | Race | Unknown | + + + | Ethnic Group | Unknown | + + + Author + + + | Author | [facility] | | | and [place] | + + + | Organization | [facility] | | | and [place] [...] Team Providers + +------+ + | Care Video Arcade Manager Name | Role | Phone | + +------+ + PCP | Unavailable | + +------+ + Reason for Visit + + + | Reason | Comments | + + + | ED Follow-up | | + + + Encounter Details +--------+ + + + + | Date | Type | Department | Care Team | Description | +--------+ + + + + | 04/29/ | Telephone | [facility] | Ramon Stokes | ED Follow-up | | 2015 | | ORTHOPEDIC SURGERY | MD [address] | | | | | [address] [facility] | [place] | | | | | [place] | [address] | | | | | [address] | | | | | | [phone] | | | +--------+ + + + [...]
--- OUTSIDE RECORDS SUMMARY | ~2019-03-21 | XMS | Encounter Summary ---
Demographics + + + | Address | [address] | | | [place] [address] | + + + | Home Phone | | + + + | Preferred Language | Unknown | + + + | Marital Status | | + + + | Christianity Affiliation | Unknown | + + + | Race | Unknown | + + + | Ethnic Group | Unknown | + + + Author + + + | Author | [facility] | | | and [place] | + + + | Organization | [facility] | | | and [place] [...] Team Providers + +------+ + | Care Field Aide Name | Role | Phone | + +------+ + PCP | Unavailable | + +------+ + Reason for Visit + + + | Reason | Comments | + + + | Follow-up | right upper extremity emg from [facility] | + + + Encounter Details +--------+---------+ + + + | Date | Type | Department | Care Team | Description | +--------+---------+ + + + | 07/15/ | Office | [facility] | Caro Flores | Carpal tunnel | | 2016 | Visit | ORTHOPEDIC SURGERY | MD Mehul [address] [facility] | syndrome of right | | | | [address] [facility] | [place], [place] | wrist (Primary Dx) | | | | [place], [place] | [address] | | | | | [address] | | | | | | [phone] | | | +--------+---------+ + + + [...] Temperature | 37.1 C (98.7 F) | 07/16/2015 4:20 PM | | | | | PDT [...] + + + + | Weight | 106.6 kg (235 lb) | 07/16/2015 4:20 PM | | | | | PDT | | + + + + + | Height | 162.6 cm (5' 4") | 07/16/2015 4:20 PM | | | | | PDT | | + + + + + | Body Mass Index | 40.34 | 07/16/2015 4:20 PM | | | | | PDT | | + + + + + documented in this encounter Progress Notes Caro Flores MD - 07/16/2015 4:59 PM PDTSee soap note [id number].Electronically sign ed by Caro Flores MD at 07/16/2015 4:59 PM PDTCaro Flores MD - 4:58 PM PDT [facility] ORTHOPEDIC SURGERY [address] [place] [id number] OFFICE NOTE CARO FLORES MD Patient: ALINE WHITLEY Admitting: MR #: [id number] LOC: PT TYPE: Adm Date: 07/16/2015 : 1955 Aline returns today for followup of her right upper extremity symptomatology. She has undergone an electrodiagnostic evaluation under the care of Dr. Simmons at the [facility] and was found to have moderate carpal tunnel syndrome. EXAMINATION: Today exam reveals that she continues to have a positive Tinel's sign with p ercussion over the median nerve at the level of the wrist. She has decreased sensation in the median nerve distribution. ADVICE: Aline is a candidate for carpal tunnel release in view of a persistence of he r symptoms and lack of response to conservative measures including splinting. She, therefo re, will be scheduled for a right carpal tunnel release following financial clearance at a time that is convenient for her schedule. CARO FLORES MD Dictated by CARO FLORES MD 07/16/2015 16:58:46 Transcribed on 07/17/2015 11:51:58 by damian job# [id number] Confirmation #: [id number] cc: LANA MELCHOR MD documented in this encounter Plan of Treatment Not on filedocumented as of this encounter Visit Diagnoses + + | Diagnosis | + + | Carpal tunnel syndrome of right wrist - Primary Carpal tunnel syndrome | + + documented in this encounter
--- OUTSIDE RECORDS SUMMARY | ~2019-03-21 | XMS | Encounter Summary ---
Demographics + + + | Address | [address] | | | [place] [address] | + + + | Home Phone | | + + + | Preferred Language | Unknown | + + + | Marital Status | | + + + | Spiritism Affiliation | Unknown | + + + | Race | Unknown | + + + | Ethnic Group | Unknown | + + + Author + + + | Author | [facility] | | | and [place] | + + + | Organization | [facility] [...] Team Providers + +------+ + | Care Table Operator Name | Role | Phone | + [...] [place] | | | | | [phone] | [place] [address] | | +--------+ + + + + [...] | US ABDOMEN COMPLETE | Routin | 05/26/2017 | | Results for this | | | e | 8:55 AM | | procedure are in the | | | | PST | | results section. | + +--------+ + + + documented in this encounter Results US Abdomen Complete (05/26/2017 8:55 AM PST) + + | Specimen | [...]
--- OUTSIDE RECORDS SUMMARY | ~2019-03-21 | XMS | Encounter Summary ---
Demographics + + + | Address | [address] | | | [place] [address] | + + + | Home Phone | | + + + | Preferred Language | Unknown | + + + | Marital Status | | + + + | Adventist Affiliation | Unknown | + + + | Race | Unknown | + + + | Ethnic Group | Unknown | + + + Author + + + | Author | [facility] | | | and [place] | + + + | Organization | [facility] | | | and [place] [...] Team Providers + +------+ + | Care Ferryboat Pilot Name | Role | Phone | + [...] + + | 07/15/ | Office | [facility] | Caro Flores | Carpal tunnel | | 2016 | Visit | ORTHOPEDIC SURGERY | MD [address] [facility] | syndrome of right | | | | [address] [facility] | [place], [place] | wrist (Primary Dx) | | | | [place], [place] | [address] | | | | | [address] | | | | | | [phone] | | | +--------+---------+ + + + [...] - 07/16/2015 4:59 PM PDTSee soap note [id number].Electronically sign ed by Caro Flores MD at 07/16/2015 4:59 PM PDTCaro Flores MD - 4:58 PM PDT [facility] ORTHOPEDIC SURGERY [address] [place] [id number] OFFICE NOTE CARO FLORES MD Patient: ALINE WHITLEY Admitting: MR #: [id number] LOC: PT TYPE: Adm Date: 07/16/2015 : 1955 Aline returns today for followup of her right upper extremity symptomatology. She has undergone an electrodiagnostic evaluation under the care of Dr. Simmons at the [facility] and was found to have moderate carpal [...] Transcribed on 07/17/2015 11:51:58 by damian job# [id number] Confirmation #: [id number] cc: LANA MELCHOR MD documented in this encounter Plan of Treatment Not on filedocumented as of this encounter Visit Diagnoses + + | Diagnosis | + + | Carpal tunnel syndrome of right wrist - Primary Carpal tunnel syndrome | + + documented in this encounter
--- OUTSIDE RECORDS SUMMARY | ~2019-03-21 | XMS | Encounter Summary ---
Demographics + + + | Address | [address] | | | [place] [address] | + + + | Home Phone | | + + + | Preferred Language | Unknown | + + + | Marital Status | | + + + | Congregation Affiliation | Unknown | + + + | Race | Unknown | + + + | Ethnic Group | Unknown | + + + Author + + + | Author | [facility] | | | and [place] | + + + | Organization | [facility] | | | and [...] Team Providers + +------+ + | Care Figure Skater Name | Role | Phone | + +------+ + PCP | Unavailable | + +------+ + Encounter Details +--------+ + + + + | Date | Type | Department | Care Team | Description | +--------+ + + + + | 06/26/ | Hospital | [facility] | | | | 2007 | Encounter | MED CTR XRAY [address] | | | | | | [place] | | | | | | [place] [address] | | | | | | [phone] | | | +--------+ + + + [...]
--- OUTSIDE RECORDS SUMMARY | ~2019-03-21 | XMS | Encounter Summary ---
Demographics + + + | Address | [address] | | | [place] [address] | + + + | Home Phone | | + + + | Preferred Language | Unknown | + + + | Marital Status | | + + + | Jew Affiliation | Unknown | + + + | Race | Unknown | + + + | Ethnic Group | Unknown | + + + Author + + + | Author | [facility] | | | and [place] | + + + | Organization | [facility] | | | and [...] Team Providers + +------+ + | Care Marble And Granite Polisher Name | Role | Phone | + [...] Aniya JAMES | | | | | [phone] | [place] [address] | | +--------+ + + + + [...] | US ABDOMEN COMPLETE | Routin | 11/24/2016 | | Results for this | | | e | 8:15 AM | | procedure are in the | | | | PDT | | results section. | + +--------+ + + + documented in this encounter Results US Abdomen Complete (11/24/2016 8:15 AM PDT) + + | Specimen | [...]
--- OUTSIDE RECORDS SUMMARY | ~2019-03-21 | XMS | Encounter Summary ---
Demographics + + + | Address | [address] | | | [place] [address] | + + + | Home Phone | | + + + | Preferred Language | Unknown | + + + | Marital Status | | + + + | Mosque Affiliation | Unknown | + + + | Race | Unknown | + + + | Ethnic Group | Unknown | + + + Author + + + | Author | [facility] | | | and [place] | + + + | Organization | [facility] | | | and [place] | [...] Team Providers + +------+ + | Care Montessori Preschool Teacher Name | Role | Phone | + +------+ + PCP | Unavailable | + +------+ + Reason for Visit + + + | Reason | Comments | + + + | Pre-op Exam | right carpal tunnel release DOS 10/14/15 | + + + Evaluate & Treat (Routine) +--------+--------+ + + + + | Status | Reason | Specialty | Diagnoses / | Referred By | Referred To | | | | | Procedures | Contact | Contact | +--------+--------+ + + + + | Closed | | Orthopedic | Diagnoses | Dalila, | Kike, | | | | Surgery | Right hand | Morgan Vale DO | Ramon Carver MD | | | | | pain Right | [address] | [address] | | | | | wrist pain | [address] | [address] [place] | | | | | | [place] | [place] | | | | | | [place], | [address] Phone: | | | | | | [place] [address] | [phone] | | | | | | Phone: | Fax: | | | | | | [phone] | [phone] | | | | | | Fax: | | | | | | | [phone] | | +--------+--------+ + + + + Encounter Details +--------+---------+ + + + | Date | Type | Department | Care Team | Description | +--------+---------+ + + + | 10/07/ | Office | [facility] | Quirino Olson | Hepatic cirrhosis, | | 2015 | Visit | ORTHOPEDIC SURGERY | [address] | unspecified hepatic | | | | [address] [facility] | [place] | cirrhosis type (HCC) | | | | [place], [place] | [place] [address] | (Primary Dx); | | | | [address] | [phone] | Diuretics causing | | | | [phone] | | adverse effect in | | | | | | therapeutic use, | | | | | | initial encounter; | | | | | | Thyroid dysfunction; | | | | | | Carpal tunnel | | | | | | syndrome, | | | | | | unspecified | | | | | | laterality | +--------+---------+ + + + Social History [...] + + + | Blood Pressure | 117/60 | 10/08/2015 8:24 AM | | | | | PDT | | + + + + + | Pulse | 94 | 10/08/2015 8:24 AM | | | | | PDT | | + + + + + | Temperature | 36.6 C (97.8 F) | 10/08/2015 8:24 AM | | | | | PDT | | + + + + + | Respiratory Rate | - | - | | + + + + + | Oxygen Saturation | 96% | 10/08/2015 8:24 AM | | | | | PDT [...] + | Diagnosis | + + | Hepatic cirrhosis, unspecified hepatic cirrhosis type (HCC) - Primary | + + | Diuretics causing adverse effect in therapeutic use, initial encounter | + + | Thyroid dysfunction Unspecified disorder of thyroid | + + | Carpal tunnel syndrome, unspecified laterality | + + documented in this encounter"
--- OUTSIDE RECORDS SUMMARY | ~2019-03-21 | XMS | Encounter Summary ---
Demographics + + + | Address | [address] | | | [place] [address] | + + + | Home Phone | | + + + | Preferred Language | Unknown | + + + | Marital Status | | + + + | Gnosticism Affiliation | Unknown | + + + | Race | Unknown | + + + | Ethnic Group | Unknown | + + + Author + + + | Author | [facility] | | | and [place] | + + + | Organization | [facility] | | | and [...] Team Providers + +------+ + | Care Diamond Mounter Name | Role | Phone | + +------+ + PCP | Unavailable | + +------+ + Encounter Details +--------+ + + + + | Date | Type | Department | Care Team | Description | +--------+ + + + + | 06/08/ | Hospital | [facility] | Morgan Woo MD | | | 2011 | Encounter | MED CTR XRAY [address] | [address] [place] | | | | | [place] | [address] [place], | | | | | [place] [address] | [place] [address] | | | | | [phone] | [phone] | | | | | | | [...] | + +--------+ + + + | CT SINUS WO CONTRAST | | 06/08/2011 | | Results for this | | LIMITED | | 11:42 AM | | procedure are in the | | | | PST | | results section. | + +--------+ + + + documented in this encounter Results CT Sinus WO Contrast Limited (06/08/2011 11:42 AM PST) + + | Specimen | + + | | + + + + + | Narrative | Performed At | + + + | [facility] Diagnostic Imaging Department | [facility] | | [address] [facility] | [facility] | | UNENHANCED CT PARANASAL SINUSES: | DIAG IMG | | 06/08/2011 CLINICAL HISTORY: LOSS OF SMELL AND TASTE. | | | COMPARISON: None. TECHNIQUE: Axial unenhanced images are | | | performed through the paranasal sinuses , along with coronal | | | reformations. FINDINGS: The frontal sinuses are hypoplastic. | | | The ethmoid, maxillary and sphenoid sinuses are well-aerated, along | | | with the imaged mastoid air cells. There is rightward nasal septal | | | deviation. The ostiomeatal units are patent. No fracture, erosion or | | | reactive bony sclerosis is evident. Imaged brain, orbital contents | | | and soft tissue structures are unremarkable, allowing for the | | | limitation of the bone algorithm utilized to perform the study. | | | IMPRESSION: 1. LEFTWARD NASAL SEPTAL DEVIATION WITH CLEAR PARANASAL | | | SINUSES. Dictated Date/Time: 06/08/2011 14:09 Transcribed | | | Date/Time: 06/08/2011 14:15 Building Stonecutter: | | | <Electronically Signed by Neftaly Samuel MD> 06/08/111 | | + + + + + | Procedure Note | + + | Vitaly, Rad Conversion - 06/07/2013 4:42 PM [facility] | | Diagnostic Imaging Department | | [address] [facility] | | | | | | | | UNENHANCED CT PARANASAL SINUSES: 06/08/2011 | | | | CLINICAL HISTORY: LOSS OF SMELL AND TASTE. | | | | COMPARISON: None. | | | | TECHNIQUE: Axial unenhanced images are performed through the paranasal sinuses | | , along with coronal reformations. | | | | FINDINGS: The frontal sinuses are hypoplastic. The ethmoid, maxillary and | | sphenoid sinuses are well-aerated, along with the imaged mastoid air cells. | | There is rightward nasal septal deviation. The ostiomeatal units are patent. No | | fracture, erosion or reactive bony sclerosis is evident. Imaged brain, orbital | | contents and soft tissue structures are unremarkable, allowing for the | | limitation of the bone algorithm utilized to perform the study. | | | | IMPRESSION: | | 1. LEFTWARD NASAL SEPTAL DEVIATION WITH CLEAR PARANASAL SINUSES. | | | | Dictated Date/Time: 06/08/2011 14:09 | | Transcribed Date/Time: 06/08/2011 14:15 | | Building Stonecutter: NADIA | | <Electronically Signed by Neftaly Samuel MD> 06/08/112130 | + + + +---------+ + + | Performing | Address | City/State/Zipcode | Phone Number | | Organization | | | | + +---------+ + + | [place] | | | | | [place] | | | | + +---------+ + + documented in this encounter Visit Diagnoses Not on filedocumented in this encounter"
--- OUTSIDE RECORDS SUMMARY | ~2019-03-21 | XMS | Encounter Summary ---
Demographics + + + | Address | [address] | | | [place] [address] | + + + | Home Phone | | + + + | Preferred Language | Unknown | + + + | Marital Status | | + + + | Lutheran Affiliation | Unknown | + + + | Race | Unknown | + + + | Ethnic Group | Unknown | + + + Author + + + | Author | [facility] | | | and [place] | + + + | Organization | [facility] | | | and [place] [...] Team Providers + +------+ + | Care Lead Fabricator Name | Role | Phone | + +------+ + PCP | Unavailable | + +------+ + Reason for Visit + + + | Reason | Comments | + + + | Pleuritic Chest Pain | | | (Adult) | | + + + Auth/Cert +--------+--------+ [...] | +--------+ + + + + | 08/13/ | Emergency | [facility] | Jeffrey Augustin | Closed fracture of | | 2018 | | [facility] | MD Anjum [address] | multiple ribs of | | | | CENTER [address] | [address] | left side, initial | | | | [place] | [place] [address] | encounter (Primary | | | | [address] | [phone] | Dx); Acute pain; | | | | [phone] | | Fall, initial | | | | | | encounter | +--------+ + + + + Social [...] + + + | Blood Pressure | 124/72 | 08/13/2017 7:50 PM | | | | | PDT | | + + + + + | Pulse | 93 | 08/13/2017 7:50 PM | | | | | PDT | | + + + + + | Temperature | 37.1 C (98.7 F) | 08/13/2017 4:23 PM | | | | | PDT | | + + + + + | Respiratory Rate | 18 | 08/13/2017 7:50 PM | | | | | PDT | | + + + + + | Oxygen Saturation | 98% | 08/13/2017 7:50 PM | | | | | PDT | | + + + + + | Inhaled Oxygen | - | - | | | Concentration | | | | + + + + + | Weight | 113.4 kg (250 lb) | 08/13/2017 4:23 PM | | | | | PDT | | + + + + + | Height | 165.1 cm (5' 5") | 08/13/2017 4:23 PM | | | | | PDT | | + + + + + | Body Mass Index | 41.6 | 08/13/2017 4:23 PM | | | | | PDT | | + + + + + documented in this encounter Discharge Instructions AttachmentsThe following attachments cannot be sent through Care Everywhere.Rib Fracture (E jose e)documented in this encounter Medications at Time of [...] + + + +---------+ + + | cyclobenzaprine | Take 1 tablet by | 10 | 0 | 08/14/19 | | | (FLEXERIL) 10 mg | mouth Twice daily | tablet | | 18 | 8 | | tablet | as needed for up to | | | | | | | 5 days. | | | | | + + + +---------+ + + | furosemide (LASIX) | Take 40 mg daily | | 0 | | | | 40 mg tablet | | | | | 8 | + + + +---------+ + + | ibuprofen (ADVIL, | Take 400 mg by mouth | | 0 | | | | MOTRIN) 400 mg | every 6 hours as | | | | 8 | | tablet | needed for Pain. | | | | | + + + +---------+ + + | ibuprofen | | | 0 | 08/09/19 | | | (ADVIL,MOTRIN) 600 | | | | 18 | 8 | | MG tablet | | | | | | + + + +---------+ + + | traMADol (ULTRAM) | Take 1 tablet by | 30 | 0 | 08/14/19 | | | 50 mg tablet | mouth every 8 hours | tablet | | 18 | 8 | | | as needed for up to | | | | | | | 10 days. | | | | | + + + +---------+ + + documented as of this encounter Plan of Treatment Not on filedocumented as of this encounter Procedures + +--------+ + + + | Procedure Name | Priori | Date/Time | Associated Diagnosis | Comments | | | ty | | | | + +--------+ + + + | CT CHEST WO CONTRAST | STAT | 08/13/2017 | | Results for this | | | | 5:20 PM | | procedure are in the | | | | PDT | | results section. | + +--------+ + + + | TROPONIN I | STAT | 08/13/2017 | | Results for this | | | | 4:52 PM | | procedure are in the | | | | PDT | | results section. | + +--------+ + + + | XR CHEST AP PORTABLE | STAT | 08/13/2017 | | Results for this | | | | 4:43 PM | | procedure are in the | | | | PDT | | results section. | + +--------+ + + + | CBC WITH | STAT | 08/13/2017 | | Results for this | | DIFFERENTIAL | | 4:40 PM | | procedure are in the | | | | PDT | | results section. | + +--------+ + + + | B TYPE NATRIURETIC | STAT | 08/13/2017 | | Results for this | | PEPTIDE | | 4:40 PM | | procedure are in the | | | | PDT | | results section. | + +--------+ + + + | COMPREHENSIVE | STAT | 08/13/2017 | | Results for this | | METABOLIC PANEL | | 4:40 PM | | procedure are in the | | | | PDT | | results section. | + +--------+ + + + | ECG 12 LEAD | STAT | 08/13/2017 | | Results for this | | | | 4:29 PM | | procedure are in the | | | | PDT | | results section. | + +--------+ + + + documented in this encounter Results CT Chest wo Contrast (08/13/2017 5:20 PM PDT) + + | Specimen | + + | | + + + + + | Narrative | Performed At | + + + | CT CHEST WITHOUT CONTRAST CLINICAL INFORMATION: Pleuritic | [facility] | | chest pain. COMPARISON: No comparisons PROCEDURE: Axial | | | images through the chest. Multiplanar reconstructions. At least | | | one of the following CT dose optimization techniques were used: | | | Automated exposure control; Adjustment of mA and/or kV according to | | | patient size; Use of iterative reconstruction technique. FINDINGS: | | | Lungs, Pleura and Airways: No significant pulmonary abnormality. No | | | airway narrowing or obstruction. No pleural effusion or pneumothorax. | | | Mediastinum: No significant pericardial, great vessel or esophageal | | | abnormality. No mediastinal mass. Lymph Nodes: No adenopathy. Upper | | | Abdomen: Cirrhotic configuration of the liver. Trace ascites. | | | Gallbladder is surgically absent. BODY WALL Soft Tissues: The | | | soft tissues of the chest wall are unremarkable. Bones: Nondisplaced | | | left anterior third through sixth rib fractures. Multilevel thoracic | | | spondylosis. IMPRESSION- 1. Nondisplaced left anterior third | | | through sixth rib fractures. No pneumothorax or pleural effusion. | | | 2. Cirrhosis with trace ascites. A preliminary report was | | | sent by [facility] with no significant discrepancy. | | | Dictated and Signed by: Hayden Sorensen MD Electronically signed: | | | 08/13/2017 7:34 PM | | + + + + + | Procedure Note | + + | Vitaly, Rad Results In 08/13/2017 7:37 PM PDT | | CT CHEST WITHOUT CONTRAST | | | | CLINICAL INFORMATION: | | Pleuritic chest pain. | | | | COMPARISON: | | No comparisons | | | | PROCEDURE: | | Axial images through the chest. Multiplanar reconstructions. | | | | At least one of the following CT dose optimization techniques were | | used: Automated exposure control; Adjustment of mA and/or kV according | | to patient size; Use of iterative reconstruction technique. | | | | FINDINGS: | | Lungs, Pleura and Airways: No significant pulmonary abnormality. No | | airway narrowing or obstruction. No pleural effusion or pneumothorax. | | Mediastinum: No significant pericardial, great vessel or esophageal | | abnormality. No mediastinal mass. | | Lymph Nodes: No adenopathy. | | Upper Abdomen: Cirrhotic configuration of the liver. Trace ascites. Gallbladder | | is surgically absent. | | | | BODY WALL | | Soft Tissues: The soft tissues of the chest wall are unremarkable. | | Bones: Nondisplaced left anterior third through sixth rib fractures. Multilevel | | thoracic spondylosis. | | | | IMPRESSION- | | 1. Nondisplaced left anterior third through sixth rib fractures. No | | pneumothorax or pleural effusion. | | | | 2. Cirrhosis with trace ascites. | | | | | | A preliminary report was sent by [facility] with no significant | | discrepancy. | | | | Dictated and Signed by: Hayden Sorensen MD | | Electronically signed: 08/13/2017 7:34 PM | + + + +---------+ + + | Performing | Address | City/State/Zipcode | Phone Number | | Organization | | | | + +---------+ + + | [facility] | | | | + +---------+ + + Troponin I (08/13/2017 4:52 PM PDT) + + + + + + | Component | Value | Ref Range | Performed | Pathologist | | | | | At | Signature | + + + + + + | Troponin I | 0.01Comment: Reference | <0.06 ng/mL | [facility] | | | | Ranges:0.00-0.06 = | | [facility] | | | | NORMAL>0.06 = | | MEDICAL | | | | SUSPICIOUS FOR | | CENTER - | | | | MYOCARDIAL DAMAGE NOTE: | | LABORATORY | | | | Values greater than 0.50 | | | | | | ng/mL have been shown | | | | | | to be strongly | | | | | | associated with acute | | | | | | myocardial infarction. | | | | | | The [employer] | | | | | | Cardiology (ACC) | | | | | | recommends a decision | | | | | | limit of 0.06 ng/mL for | | | | | | this assay. Results | | | | | | greater than 0.06 can | | | | | | reflect a pre-infarct | | | | | | acute coronary syndrome, | | | | | | but can also reflect | | | | | | myocardial necrosis or | | | | | | injury that is not due | | | | | | to coronary artery | | | | | | disease. Some of these | | | | | | causes are sepsis, | | | | | | hypocolemia, atrial | | | | | | fibrillation, heart | | | | | | failure, pulmonary | | | | | | embolism, myocarditis, | | | | | | myocardial contusion, | | | | | | and renal failure. The | | | | | | diagnosis of myocardial | | | | | | infarction should be | | | | | | based on a combination | | | | | | of the patient's | | | | | | clinical presentation | | | | | | and the clinical | | | | | | laboratory test results | | | | | | (especially serial | | | | | | troponin levels). | | | | + + + + + + + + | Specimen | + + | Blood | + + + + + + + | Performing | Address | City/State/Zipcode | Phone Number | | Organization | | | | + + + + + | [facility] | [address] | [place] | [phone] | | [facility] | | [address] | | | - LABORATORY | | | | + + + + + XR Chest AP Portable (08/13/2017 4:43 PM PDT) + + | Specimen | + + | | + + + + + | Narrative | Performed At | + + + | XR CHEST AP PORTABLE 08/13/2017 4:43 PM HISTORY: CHEST PAIN. | [facility] | | COMPARISON: 12/14/2012 and same-day CT of the chest Findings: The | | | bilateral lungs are clear with no evidence for pleural effusion or | | | pneumothorax. Heart size is within normal limits. Pulmonary | | | vasculature is within normal limits. Aorta is normal. Mediastinum is | | | unremarkable. No acute osseous or soft tissue abnormality identified. | | | IMPRESSION - No acute intrathoracic abnormality identified. | | | Hypoexpanded lungs with bilateral bronchovascular crowding. | | | Dictated and Signed by: Hayden Sorensen MD Electronically signed: | | | 08/13/2017 11:04 PM | | + + + + + | Procedure Note | + + | Vitaly, Rad Results In - 08/13/2017 11:07 PM PDT XR CHEST AP PORTABLE 08/13/2017 4:43 PM | | | | HISTORY: CHEST PAIN. | | | | COMPARISON: 12/14/2012 and same-day CT of the chest | | | | Findings: | | The bilateral lungs are clear with no evidence for pleural effusion or | | pneumothorax. Heart size is within normal limits. Pulmonary vasculature is | | within normal limits. Aorta is normal. Mediastinum is unremarkable. No acute | | osseous or soft tissue abnormality identified. | | | | IMPRESSION - | | No acute intrathoracic abnormality identified. | | | | Hypoexpanded lungs with bilateral bronchovascular crowding. | | | | Dictated and Signed by: Hayden Sorensen MD | | Electronically signed: 08/13/2017 11:04 PM | + + + +---------+ + + | Performing | Address | City/State/Zipcode | Phone Number | | Organization | | | | + +---------+ + + | [facility] | | | | + +---------+ + + B Type Natriuretic Peptide (08/13/2017 4:40 PM PDT) + +-------+ + + + | Component | Value | Ref Range | Performed | Pathologist | | | | | At | Signature | + +-------+ + + + | BNP | 31 | <100 pg/mL | [facility] | | | | | [...] + | [facility] | [address] | [place] | [phone] | | [facility] | | [address] | | | - LABORATORY | | | | + + + + + Comprehensive Metabolic Panel (08/13/2017 4:40 PM PDT) + + + + + + | Component | Value | Ref Range | Performed | Pathologist | | | | | At | Signature | + + + + + + | Na | 136 | 136 - 149 | [facility] | | | | | mmol/L | [facility] | | | | | | MEDICAL | | | | | | CENTER - | | | | | | LABORATORY | | + + + + + + | K | 4.5 | 3.5 - 5.1 | [facility] | [...] + + + | Anion Gap | 4 | 3 - 16 mmol/L | [facility] | | | | | | [facility] | | | | | | MEDICAL | | | | | | CENTER - | | | | | | LABORATORY | | + + + + + + | Glucose | 167 (H) | 70 - 109 mg/dL | [facility] | | | | | | [facility] | | | | | | MEDICAL | | | | | | CENTER - | | | | | | LABORATORY | | + + + + + + | BUN | 13 | 7 - 18 mg/dL | [facility] | | | | | | [facility] | | | | | | MEDICAL | | | | | | CENTER - | | | | | | LABORATORY | | + + + + + + | Creatinine | 1.19 | 0.60 - 1.30 | [facility] | | | | | mg/dL | [facility] | | | | | | MEDICAL | | | | | | CENTER - | | | | | | LABORATORY | | + + + + + + | eGFR if not | 46 (L)Comment: | >=60 | [facility] | | | | GLOMERULAR FILTRATION | mL/min/1.73m2 | [facility] | | | INDIAN | RATE,ESTIMATED | | MEDICAL | | | | mL/min/1.62k4Lqmx than | | CENTER - | | [...] + + + + | Calcium | 9.0 | 8.3 - 10.5 | [facility] | | | | | mg/dL | [facility] | | | | | | MEDICAL | | | | | | CENTER - | | | | | | LABORATORY | | + + + + + + | Albumin | 2.6 (L) | 3.2 - 5.0 g/dL | [facility] | | | | | | [facility] | | | | | | MEDICAL | | | | | | CENTER - | | | | | | LABORATORY | | + + + + + + | Bilirubin | 1.5Comment: This is an | 0.1 - 1.5 mg/dL | [facility] | | | Total | appended report. These | | [facility] | | | | results have been | | MEDICAL | | | | appended to a previously | | CENTER - | | | | preliminary verified | | LABORATORY | | | | report. | | | | + + + + + + | Total | 7.1 | 6.0 - 7.8 g/dL | [facility] | | | Protein | | | [facility] | | | | | | MEDICAL | | | | | | CENTER - | | | | | | LABORATORY | | + + + + + + | AST | 44 (H)Comment: This is | 10 - 42 U/L | [facility] | | | | an appended report. | | [facility] | | | | These results have been | | MEDICAL | | | | appended to a previously | | CENTER - | | | | preliminary verified | | LABORATORY | | | | report. | | | | + + + + + + | ALT | 16Comment: This is an | 6 - 45 U/L | [facility] | | | | appended report. These | | [facility] | | | | results have been | | MEDICAL | | | | appended to a previously | | CENTER - | | | | preliminary verified | | LABORATORY | | | | report. | | | | + + + + + + | Alkaline | 110Comment: This is an | 40 - 110 U/L | [facility] | | | Phosphatase | appended report. These | | [facility] | | | | results have been | | MEDICAL | | | | appended to a previously | | CENTER - | | | | preliminary verified | | LABORATORY | | | | report. | | | | + + + + + + | Globulin | 4.5 (H) | 2.1 - 3.8 g/dL | [facility] | | | | | | [facility] | | | | | | MEDICAL | | | | | | CENTER - | | | | | | LABORATORY | | + + + + + + | Albumin/Mary Carmen | 0.6 (L) | 0.8 - 2.0 | [facility] | | | bulin Ratio | | | [facility] | | | | | | MEDICAL | | | | | | CENTER - | | | | | | LABORATORY | | + + + + + + | BUN/Creatin | 10.9 | | [facility] | | | ine [...] + | [facility] | [address] | [place], [place] | [phone] | | [facility] | | [address] | | | - LABORATORY | | | | + + + + + CBC with Differential (08/13/2017 4:40 PM PDT) + + + + + + | Component | Value | Ref Range | Performed | Pathologist | | | | | At | Signature | + + + + + + | WBC | 4.6 | 4.0 - 11.0 K/uL | [facility] | | | | | | [facility] | | | | | | MEDICAL | | | | | | CENTER - | | | | | | LABORATORY | | + + + + + + | RBC | 4.12 | 3.70 - 5.20 | [facility] | | | | | M/uL | [facility] | | | | | | MEDICAL | | | | | | CENTER - | | | | | | LABORATORY | | + + + + + + | Hemoglobin | 12.2 | 11.5 - 16.0 | [facility] | | | | | g/dL | [facility] | | | | | | MEDICAL | | | | | | CENTER - | | | | | | LABORATORY | | + + + + + + | Hematocrit | 37.9 | 34.0 - 47.0 % | [facility] | | | | | | [facility] | | | | | | MEDICAL | | | | | | CENTER - | | | | | | LABORATORY | | + + + + + + | MCV | 92.0 | 83.0 - 101.0 fL | [facility] | | | | | | [facility] | | | | | | MEDICAL | | | | | | CENTER - | | | | | | LABORATORY | | + + + + + + | MCH | 29.7 | 28.0 - 35.0 pg | [facility] | | | | | | [facility] | | | | | | MEDICAL | | | | | | CENTER - | | | | | | LABORATORY | | + + + + + + | MCHC | 32.3 | 32.0 - 36.0 | [facility] | | | | | g/dL | [facility] | | | | | | MEDICAL | | | | | | CENTER - | | | | | | LABORATORY | | + + + + + + | RDW-CV | 14.9 | <15.0 % | [facility] | | | | | | [facility] | | | | | | MEDICAL | | | | | | CENTER - | | | | | | LABORATORY | | + + + + + + | Platelet | 87 (L) | 140 - 440 K/uL | [facility] | | | Count | | | [facility] | | | | | | MEDICAL | | | | | | CENTER - | | | | | | LABORATORY | | + + + + + + | MPV | 8.4 | fL | [facility] | | | | | | [facility] | | | | | | MEDICAL | | | | | | CENTER - | | | | | | LABORATORY | | + + + + + + | % | 66.2 | 45.0 - 82.0 % | [facility] | | | Neutrophils | | | [facility] | | | | | | MEDICAL | | | | | | CENTER - | | | | | | LABORATORY | | + + + + + + | % | 16.6 (L) | 20.0 - 45.0 % | [facility] | | | Lymphocytes | | | [facility] | | | | | | MEDICAL | | | | | | CENTER - | | | | | | LABORATORY | | + + + + + + | % Monocytes | 12.2 (H) | 4.0 - 12.0 % | [facility] | | | | | | [facility] | | | | | | MEDICAL | | | | | | CENTER - | | | | | | LABORATORY | | + + + + + + | % | 4.5 | 0.0 - 5.0 % | [facility] | | | Eosinophils | | | [facility] | | | | | | MEDICAL | | | | | | CENTER - | | | | | | LABORATORY | | + + + + + + | % Basophils | 0.5 | 0.0 - 1.0 % | [facility] | | | | | | [facility] | | | | | | MEDICAL | | | | | | CENTER - | | | | | | LABORATORY | | + + + + + + | Absolute | 3.00 | 1.80 - 8.50 | [facility] | | | Neutrophils | | K/uL | [facility] | | | | | | MEDICAL | | | | | | CENTER - | | | | | | LABORATORY | | + + + + + + | Absolute | 0.80 | 0.60 - 3.20 | [facility] | | | Lymphocytes | | K/uL | [facility] | | | | | | MEDICAL | | | | | | CENTER - | | | | | | LABORATORY | | + + + + + + | Absolute | 0.60 | 0.00 - 1.00 | [facility] | | | Monocytes | | K/uL | [facility] | | | | | | MEDICAL | | | | | | CENTER - | | | | | | LABORATORY | | + + + + + + | Absolute | 0.20 | 0.00 - 0.40 | [facility] | [...] + | [facility] | [address] | [place] | [phone] | | [facility] | | [address] | | | - LABORATORY | | | | + + + + + ECG 12 lead (08/13/2017 4:29 PM PDT) + + + + + + | Component | Value | Ref Range | Performed | Pathologist | | | | | At | Signature | + + + + + + | VENTRICULAR | 91 | BPM | [facility] | | | RATE EKG | | | | | + + + + + + | ATRIAL RATE | 91 | BPM | [facility] | | + + + + + + | P-R | 142 | ms | [facility] | | | INTERVAL | | | | | + + + + + + | QRS | 86 | ms | [facility] | | | DURATION | | | | | + + + + + + | Q-T | 374 | ms | [facility] | | | INTERVAL | | | | | + + + + + + | Q-T | 460 | ms | [facility] | | | INTERVAL | | | | | | (CORRECTED) | | | | | + + + + + + | P WAVE AXIS | 51 | degrees | [facility] | | + + + + + + | QRS AXIS | 48 | degrees | [facility] | | + + + + + + | T AXIS | 33 | degrees | [facility] | | + + + + + + | INTERPRETAT | Normal sinus | | [facility] | | | ION TEXT | rhythmNormal ECGNo | | | | | | previous ECGs | | | | | | availableConfirmed by | | | | | | JOSELUIS PINON MD ([id number]) | | | | | | on 08/14/2017 7:00:52 AM | | | | + + [...] + | Diagnosis | + + | Closed fracture of multiple ribs of left side, initial encounter - Primary | + + | Acute pain Other acute pain | + + | Fall, initial encounter | + + documented in this encounter Administered Medications + +--------+ +--------+------+------+ | Medication Order | MAR | Action | Dose | Rate | Site | | | Action | Date | | | | + +--------+ +--------+------+------+ | HYDROmorphone (DILAUDID) | Given | 08/14/19 | 0.5 mg | | | | injection 0.5 mg 0.5 mg, | | 18 6:01 | | | | | Intravenous, ONCE, 08/13/17 at | | PM PDT | | | | | 1755, For 1 dose | | | | | | + +--------+ +--------+------+------+ +---+---+ | | | +---+---+ + +-------+ +------+---+---+ | ondansetron (ZOFRAN) injection | Given | 08/14/19 | 4 mg | | | | 4 mg 4 mg, Intravenous, ONCE, | | 18 5:59 | | | | | 08/13/17 at 1755, For 1 dose | | PM PDT | | | | + +-------+ +------+---+---+ +---+---+ | | | +---+---+ + +---------+ +--------+-------+---+ | sodium chloride 0.9% (NS) bolus | New Bag | 08/14/19 | 1,000 | 1000 | | | 1,000 mL 1,000 mL, Intravenous, | | 18 6:00 | mLs | mL/hr | | | Administer over 1 Hours, ONCE, | | PM PDT | | | | | 08/13/17 at 1755, For 1 dose | | | | | | + +---------+ +--------+-------+---+ +---+---+ | | | +---+---+ documented in this encounter
--- OUTSIDE RECORDS SUMMARY | ~2019-03-21 | XMS | Encounter Summary ---
Demographics + + + | Address | [address] | | | [place] [address] | + + + | Home Phone | | + + + | Preferred Language | Unknown | + + + | Marital Status | | + + + | Temple Affiliation | Unknown | + + + | Race | Unknown | + + + | Ethnic Group | Unknown | + + + Author + + + | Author | [facility] | | | and [place] | + + + | Organization | [facility] | | | [...] Team Providers + +------+ + | Care Inventory Audit Clerk Name | Role | Phone | + +------+ + PCP | Unavailable | + +------+ + Encounter Details +--------+ + + + + | Date | Type | Department | Care Team | Description | +--------+ + + + + | 12/19/ | Emergency | [facility] | Reza Lira MD | Forehead contusion, | | 2017 | [facility] | [address] | initial encounter; | | | | EMERGENCY CENTER | [place] [address] | Left shoulder | | | | [address] | [phone] | strain, initial | | | | [place], [place] | | encounter; | | | | [address] | | Fingernail injury, | | | | [phone] | | left, initial | | | | | | encounter; Fall, | | | | | | initial encounter | +--------+ + + + + [...] + + + | Blood Pressure | 100/56 | 12/19/2016 11:15 PM | | | | | PDT | | + + + + + | Pulse | 67 | 12/19/2016 11:15 PM | | | | | PDT | | + + + + + | Temperature | 36.7 C (98 F) | 12/19/2016 11:15 PM | | | | | PDT | | + + + + + | Respiratory Rate | 18 | 12/19/2016 11:15 PM | | | | | PDT | | + + + + + | Oxygen Saturation | - | - | | + + + + + | Inhaled Oxygen | - | - | | | Concentration | | | | + + + + + | Weight | 119.5 kg (263 lb 7.2 | 12/19/2016 11:15 PM | | | | oz) | PDT | | + + + + + | Height | - | - | | + + + + + | Body Mass Index | 43.84 | 12/07/2015 8:37 AM | | | | | PDT | | + + + + + documented in this encounter Medications at Time of [...] mg by mouth | | 0 | 07/06/20 | | | 5 mg tablet | [...] +---------+ + + | buPROPion | Take 300 mg by mouth | | 0 | 06/12/19 | | | (WELLBUTRIN XL) 300 | every morning. | | | 16 | 8 | | mg 24 hr tablet | | | | | | + + + +---------+ + + | furosemide (LASIX) | Take 40 mg by mouth | | 0 | 01/12/20 | | | 40 mg tablet | Daily. | | | 12 | 7 | + + + +---------+ + + | naproxen | Take 500 mg by mouth | | 0 | 11/04/19 | | | (NAPROSYN) 500 mg | 2 times daily (with | | | 17 | 7 | | tablet | breakfast & | | | | | | | dinner). | | | | | + + + +---------+ + + | traMADol (ULTRAM) | Take 1 tablet by | 40 | 0 | 10/14/19 | | | 50 mg tablet | mouth EVERY 4 TO 6 | tablet | | 16 | 7 | | | HOURS NEEDED for | | | | | | | Pain. | | | | | + + + +---------+ + + documented as of this encounter Plan of Treatment Not on filedocumented as of this encounter Procedures + +--------+ + + + | Procedure Name | Priori | Date/Time | Associated Diagnosis | Comments | | | ty | | | | + +--------+ + + + | XR SHOULDER LEFT 2 + | Routin | 12/19/2016 | | Results for this | | VW | e | 10:37 PM | | procedure are in the | | | | PDT | | results section. | + +--------+ + + + | CT HEAD WO CONTRAST | Routin | 12/19/2016 | | Results for this | | | e | 10:22 PM | | procedure are in the | | | | PDT | | results section. | + +--------+ + + + documented in this encounter Results XR Shoulder Left 2 + Vw (12/19/2016 10:37 PM PDT) + + | Specimen | + + | | + + + + + | Impressions | Performed At | + + + | 1. Question of minimal calcific tendinitis. 2. Negative for | | | fracture. 3. Mild acromioclavicular joint degenerative change. | | | | | + + + + + + | Narrative | Performed At | + + + | [facility]WK[facility] SHOULDER LEFT HISTORY: 61 years. Female. | | | Shoulder injury TECHNIQUE: Four views of shoulder were obtained. | | | COMPARISON: None. FINDINGS: The osseous structures are well | | | mineralized without evidence of fracture or dislocation. The soft | | | tissues are unremarkable. Mild acromioclavicular joint degenerative | | | change. Minimal calcification near the greater tuberosity which may be | | | on the basis of calcific tendinitis. | | + + + + + | Procedure Note | + + | Vitaly, Jacobo Conversion - 12/12/2018 11:52 PM PDT [facility] ACUNA SHOULDER LEFT | | HISTORY:61 years. Female. Shoulder injury TECHNIQUE:Four views of shoulder were | | obtained. COMPARISON:None. FINDINGS:The osseous structures are well mineralized without | | evidence of fracture or dislocation. The soft tissues are unremarkable. Mild | | acromioclavicular joint degenerative change. Minimal calcification near the greater | | tuberosity which may be on the basis of calcific tendinitis. IMPRESSION: 1. Question of | | minimal calcific tendinitis.2. Negative for fracture.3. Mild acromioclavicular joint | | degenerative change. | | | |COMPARISON: | |None. | | | |FINDINGS: | |The osseous structures are well mineralized without evidence of fracture or dislocation. T he soft tissues are unremarkable. Mild acromioclavicular joint degenerative change. Minimal calcification near | |the greater tuberosity which may be on the basis of | | calcific tendinitis. | | | |IMPRESSION: | |1. Question of minimal calcific tendinitis. | |2. Negative for fracture. | |3. Mild acromioclavicular joint degenerative change. | | | | | + + CT Head wo Contrast (12/19/2016 10:22 PM PDT) + + | Specimen | + + | | + + + + + | Impressions | Performed At | + + + | 1. Small left frontal scalp hematoma. 2. No intracranial bleed | | | or midline shift. Electronically signed by DO shaista Jin | | | 12/19/2016 10:32 PM | | + + + + + + | Narrative | Performed At | + + + | [facility] GONZALEZCHASE [address] HEAD WO CONTRAST | | | 12/19/2016 10:22 PM INDICATION: Head injury COMPARISON: None | | | TECHNIQUE: CT scan of the head without contrast. Helically | | | acquired axial images were obtained. 5 mm thick axial images were | | | reconstructed of the head. Dose reduction techniques were used | | | including automated exposure control, iterative reconstruction | | | technique, and/or automated adjustable mAs based on patient size. | | | FINDINGS: Small left frontal scalp hematoma measuring 3.9 x 0.7 | | | cm. No mass, hemorrhage, midline shift, extra-axial fluid collection. | | | The mastoid and paranasal sinuses are clear. Orbits and their contents | | | are unremarkable. | | + + + + + | Procedure Note | + + | Vitaly, Rad Conversion - 12/12/2018 11:52 PM PDT YOSELYN OLVERAT1166164 years | | FemaleCT HEAD WO CONTRAST12/19/2016 10:22 PM INDICATION: Head injury COMPARISON: None | | TECHNIQUE: CT scan of the head without contrast. Helically acquired axial images were | | obtained. 5 mm thick axial images were reconstructed of the head. Dose reduction | | techniques were used including automated exposure control, iterative reconstruction | | technique, and/or automated adjustable mAs based on patient size. FINDINGS: Small left | | frontal scalp hematoma measuring 3.9 x 0.7 cm. No mass, hemorrhage, midline shift, | | extra-axial fluid collection. The mastoid and paranasal sinuses are clear. Orbits and | | their contents are unremarkable. IMPRESSION: 1. Small left frontal scalp hematoma.2. | | No intracranial bleed or midline shift. Electronically signed by Brando Griggs DO on | | 12/19/2016 10:32 PM | |control, iterative reconstruction | |technique, and/or automated adjustable mAs based on patient size. | | | |FINDINGS: | | | |Small left frontal scalp hematoma measuring 3.9 x 0.7 cm. No mass, hemorrhage, midline shif t, extra-axial fluid collection. The mastoid and paranasal sinuses are clear. Orbits and the ir contents are unremarkable. | | | | | |IMPRESSION: | |1. Small left frontal scalp hematoma. | |2. No intracranial bleed or midline shift. | | | | | + + documented in this encounter Visit Diagnoses + + | Diagnosis | + + | Forehead contusion, initial encounter | + + | Left shoulder strain, initial encounter | + + | Fingernail injury, left, initial encounter | + + | Fall, initial encounter | + + documented in this encounter"
--- OUTSIDE RECORDS SUMMARY | ~2019-03-21 | XMS | Encounter Summary ---
Demographics + + + | Address | [address] | | | [place] [address] | + + + | Home Phone | | + + + | Preferred Language | Unknown | + + + | Marital Status | | + + + | Taoist Affiliation | Unknown | + + + | Race | Unknown | + + + | Ethnic Group | Unknown | + + + Author + + + | Author | [facility] | | | and [place] | + + + | Organization | [facility] | | | and [place] [...] Team Providers + +------+ + | Care Assistant Director Of Security Name | Role | Phone | + [...] + + | 11/07/ | Emergency | [facility] | Velia Smith, | Inflammatory | | 2018 | | MED CTR EMERGENCY | [address] | arthritis (Primary | | | | CENTER [address] | [facility] [place] | Dx); Acute pain of | | | | [place] | [place] [address] | right knee | | | | [address] | [phone] | | | | | [phone] | | | | | | | Kermit Silverio MD | | | | | | [address] | | | | | | [place] | | | | | | [address] | | | | | | | [...] Care Everywhere.Knee Pain (Engl orion)Osteoarthritis, What Is (Tristanian)documented in this encounter Medications at Time of [...] [address] | [place] | [phone] | | [facility] | | [address] | | | - LABORATORY | | [...] [address] | [place] | [phone] | | [facility] | | [address] | | | - LABORATORY | | [...] [address] | [place] | [phone] | | [facility] | | [address] | | | - LABORATORY | | [...] | % | [facility] | | | [place] | | | [facility] | | [...] + | [address] | [address] | [place], [place] | [phone] | | [facility] | | [address] | | | - LABORATORY | | [...] | to the ordering provider by the mechatronics technologist immediately | | | following the [...] the ordering provider by the | | mechatronics technologist immediately following the exam. | | [...] [address] | [place] | [phone] | | [facility] | | [address] | | | - LABORATORY | | [...] + | [facility] | [address] | [place] | [phone] | | [facility] | | [address] | | | - LABORATORY | | [...] [address] | [place] | [phone] | | [facility] | | [address] | | | - LABORATORY | | [...] ST. | [address] | [place] | [phone] | | [facility] | | [address] | | | - LABORATORY | | [...] + | [facility] | [address] | [place] | [phone] | | [facility] | | [address] | | | - LABORATORY | | [...] + | [facility] | [address] | [place] | [phone] | | [facility] | | [address] | | | - LABORATORY | | [...] mL/min/1.73m2 | [facility] | | | [place]OLIVIAN | RATE,ESTIMATED | | MEDICAL | | | | mL/min/1.72g6Cgiv than | | CENTER - | | [address] | [place] | [phone] | | [facility] | | [address] | | | - LABORATORY | | [...] [address] | [place] | [phone] | | [facility] | | [address] | | | - LABORATORY | | [...]
--- OUTSIDE RECORDS SUMMARY | ~2019-03-21 | XMS | Encounter Summary ---
Demographics + + + | Address | [address] | | | [place] [address] | + + + | Home Phone [...] + | Organization | [facility] | | | and [...] Team Providers + +------+ + | Care Cutting Machine Tender Name | Role | Phone | + [...] + + | 07/15/ | Office | [facility] | Caro Flores | Carpal tunnel | | 2016 | Visit | ORTHOPEDIC SURGERY | MD Mehul [address] [facility] | syndrome of right | | | | [address] [facility] | [place], [place] | wrist (Primary Dx) | | | | [place], [place] | [address] | | | | | [address] | | | | | | [phone] | | | +--------+---------+ + + + [...] - 07/16/2015 4:59 PM PDTSee soap note [id number].Electronically sign ed by Caro Flores MD at 07/16/2015 4:59 PM PDTCaro Flores MD - 4:58 PM PDT [facility]IC SURGERY [address] [place] [address] OFFICE NOTE CARO FLORES MD Patient: ALINE WHITLEY Admitting: MR #: [id number] LOC: PT TYPE: Adm Date: 07/16/2015 : 1955 Aline returns today for followup of her right upper extremity symptomatology. She has undergone an electrodiagnostic evaluation under the care of Dr. Simmons at the [facility] and was found to have moderate carpal [...] Transcribed on 07/17/2015 11:51:58 by damian job# [id number] Confirmation #: [id number] cc: LANA MELCHOR MD documented in this encounter Plan of Treatment Not on filedocumented as of this encounter Visit Diagnoses + + | Diagnosis | + + | Carpal tunnel syndrome of right wrist - Primary Carpal tunnel syndrome | + + documented in this encounter
--- OUTSIDE RECORDS SUMMARY | ~2019-03-21 | XMS | Encounter Summary ---
Demographics + + + | Address | [address] | | | [place] [address] | + + + | Home Phone | | + + + | Preferred Language | Unknown | + + + | Marital Status | | + + + | Mandaeism Affiliation | Unknown | + + + | Race | Unknown | + + + | Ethnic Group | Unknown | + + + Author + + + | Author | [facility] | | | and [place] | + + + | Organization | [facility] | | | and [place] [...] Team Providers + +------+ + | Care Licensed Prosthetist Name | Role | Phone | + [...] | | y | painful | Morgan Vale DO | MD Gautam [address] | | | | | tounge/yello | [address] | [address] | | | | | w | [place] | [address] [address] | | | | | [address] | WAY | [place], | | | | | s/ | [place], | [place] [address] | | | | | [place] | [place] [address] | Phone: | | | | | faxing auth | Phone: | [phone] | | | | | Procedures | [phone] | Fax: | | | | | OFFICE | Fax: | [phone] | | | | | VISIT | [phone] | | | | | | REGULAR | | | +--------+--------+ + + + + Encounter Details +--------+---------+ + + + | Date | Type | Department | Care Team | Description | +--------+---------+ + + + | 03/09/ | Office | [facility] [place] | Morgan Waters MD | Glossitis (Primary | | 2015 | Visit | OTOLARYNGOLOGY [address] | [address] [place] | Dx); Benign neoplasm | | | | [address] [address] | [address] [place], | of tongue | | | | [place], [place] | [place] [address] | | | | | [address] | [phone] | | | | | [phone] | | | +--------+---------+ + + + [...] MD - 03/09/2015 11:32 AM PST [facility] [place] OTOLARYNGOLOGY [address] [facility] [address] OFFICE NOTE MORGAN WATERS MD Patient: LESLYE WHITLEY Admitting: MR #: [id number] LOC: PT TYPE: Adm Date: 03/09/2015 : [...] of probable thrush. PLAN: The patient will cherry picker operator some yogurt with active bacteria and [...] 03/09/2015 11:32:30 Transcribed on 03/10/2015 06:05:27 by [facility] job# [id number] Confirmation #: [id number] cc: MORGAN MELCHOR MD ar sh, Morgan Florez MD - 03/09/2015 11:28 AM PSTSee dictation # [id number] signed by Morgan Waters MD at 03/09/2015 [...] 11 | 7 - 18 mg/dL | [facility] | | | | | | [facility] | | | | | | MEDICAL | | | | | | CENTER - | | | | | | LABORATORY | | + + + + + + | Creatinine | 0.95 | 0.60 - 1.30 | [facility] | | | | | mg/dL | [facility] | | | | | | MEDICAL | | | | | | CENTER - | | | | | | LABORATORY | | + + + + + + | eGFR if not | 60Comment: GLOMERULAR | >=60 | [facility] | | | | FILTRATION | mL/min/1.73m2 | [facility] | | | IVORIAN | RATE,ESTIMATED | | MEDICAL | | | | mL/min/1.71x0Nrkd than | | CENTER - | | [...] | | ine Ratio | | | [facility] | | [...] + + | [facility] | [address] | [place] | [phone] | | [facility] | | [address] | | | - LABORATORY | | | | + + + + + Ferritin (03/09/2015 11:45 AM PST) + +-------+ + + + | Component | Value | Ref Range | Performed | Pathologist | | | | | At | Signature | + +-------+ + + + | FERRITIN | 27 | 11-<307 ng/mL | [facility] | | | | | [...] + | [facility] | [address] | [place] | [phone] | | [facility] | | [address] | | | - LABORATORY | | | | + + + + + Vitamin B-12 (03/09/2015 11:45 AM PST) + + + + + + | Component | Value | Ref Range | Performed | Pathologist | | | | | At | Signature | + + + + + + | VITAMIN | 406Comment: DEFICIENT: | 180 - 914 pg/mL | [facility] | | | B-12 | <145 | [...] | + + + + + | [facility] | [address] | [place] | [phone] | | [facility] | | [address] | | | - LABORATORY | | | | + + + + + documented in this encounter Visit Diagnoses + + | Diagnosis | + + | Glossitis - Primary | + + | Benign neoplasm of tongue | + + documented in this encounter
--- OUTSIDE RECORDS SUMMARY | ~2019-03-21 | XMS | Encounter Summary ---
Demographics + + + | Address | [address] | | | [place] [address] | + + + | Home Phone | | + + + | Preferred Language | Unknown | + + + | Marital Status | | + + + | Zoroastrian Affiliation | Unknown | + + + | Race | Unknown | + + + | Ethnic Group | Unknown | + + + Author + + + | Author | [facility] | | | and [place] | + + + | Organization | [facility] | | | and [place] [...] Providers + +------+ + | Care Senior Software Development Manager Name | Role | Phone | + +------+ + PCP | Unavailable | + +------+ + Encounter Details +--------+ + + + + | Date | Type | Department | Care Team | Description | +--------+ + + + + | 11/26/ | Orders Only | [facility] | Provider, | | | 2018 | | SYSTEM GENERIC OP | MD [address] | | | | | CON[address] | [place] | | | | | [address] [address] | [place] [address] | | | | | [address] | | | | | | [phone] | | | +--------+ + + + [...]
--- OUTSIDE RECORDS SUMMARY | ~2019-03-21 | XMS | Encounter Summary ---
Demographics + + + | Address | [address] | | | [place] [address] | + + + | Home Phone | | + + + | Preferred Language | Unknown | + + + | Marital Status | | + + + | Church Affiliation | Unknown | + + + | Race | Unknown | + + + | Ethnic Group | Unknown | + + + Author + + + | Author | [facility] | | | and [place] | + + + | Organization | [facility] | | | and [place] [...] Team Providers + +------+ + | Care Telescope Repairer Name | Role | Phone | + [...] | | | Pulmonology | intermittent | [address] | [address] | | | | | asthma, | [place] | [place], | | | | | uncomplicate | WAY | [place] [address] | | | | | d | [place], | Phone: | | | | | Procedures | [place] [address] | [phone] | | | | | F/U 08/01> | Phone: | Fax: | | | | | DOS 09/22> | [phone] | [phone] | | | | | PEND UPDATED | Fax: | | | | | | AUTH FROM | [phone] | | | | | | [facility] | | | +--------+--------+ + + + + Encounter Details +--------+---------+ + + + | Date | Type | Department | Care Team | Description | +--------+---------+ + + + | 09/22/ | [facility] [place] | Duncan Bass, | Mild persistent | | 2018 | Visit | PULMONARY [address] | asthma with acute | | | | [place], | [place] | exacerbation | | | | [place] [address] | [address] | (Primary Dx) | | | | [phone] | | | +--------+---------+ + + + [...] Osteoporosis Pneumonia Pneumonia 07/30/2017 [facility] Sensorineural hearing loss Thrombocytopenia (HCC) Vitamin D [...]
--- OUTSIDE RECORDS SUMMARY | ~2019-03-21 | XMS | Encounter Summary ---
Demographics + + + | Address | [address] | | | [place] [address] | + + + | Home Phone | | + + + | Preferred Language | Unknown | + + + | Marital Status | | + + + | Bahai Affiliation | Unknown | + + + | Race | Unknown | + + + | Ethnic Group | Unknown | + + + Author + + + | Author | [facility] | | | and [place] | + + + | Organization | [facility] | | [...] Team Providers + +------+ + | Care Deburring Technician Name | Role | Phone | + +------+ + PCP | Unavailable | + +------+ + Encounter Details +--------+---------+ + + + | Date | Type | Department | Care Team | Description | +--------+---------+ + + + | 10/25/ | Office | [facility] | Caro Flores | S/P orthopedic | | 2016 | Visit | ORTHOPEDIC SURGERY | MD Mehul [address] [place] [address] | surgery, follow-up | | | | [address] [facility] | [place] | exam (Primary Dx) | | | | [place] | [address] | | | | | [address] | | | | | | [phone] | | | +--------+---------+ + + + [...] + + documented as of this encounter Progress Notes Caro Flores MD - 10/26/2015 6:08 PM Keiko mathur note [id number].Electronically sign ed by Caro Flores MD at 10/26/2015 6:08 PM Caro Gaemz MD - 06/27/201 6 6:07 PM PDT [facility] [address] [place] [address] OFFICE NOTE CARO FLORES MD Patient: ALINE WHITLEY Admitting: MR #: [id number] LOC: PT TYPE: Adm Date: 10/26/2015 : 1955 SUBJECTIVE: Aline returns today for her first followup visit after a right carpal cheryle ashley release, which was performed on 10/14/2015, approximately 12 days ago. Today she notes that she is having very little pain and notes that her right hand and wrist pain postopera tively is better than it was prior to surgery. EXAM: The patient's right wrist is examined. Incision is clean, dry, and healing nicely. There is no evidence of drainage or infection. ADVICE: Today sutures were removed and Steri-Strips and benzoin were applied. The patien niurka will continue to wear her Velcro fastener wrist splint on a full-time basis for the next week, after which she may wean herself away from use of splint. We did review her preoperative lab work with her and noted that she had a fasting blood major gar of 118. She was advised to contact her primary care provider for further evaluation fo r probable underlying diabetes mellitus, which is suspected in view of her BMI of 40.32. We will plan on seeing Aline back for a clinical check in approximately 3 weeks. CARO FLORES MD Dictated by CARO FLORES MD 10/26/2015 18:07:39 Transcribed on 10/27/2015 17:36:43 by eri job# [id number] Confirmation #: [id number] cc: LANA MELCHOR DO documented in this encounter Plan of Treatment Not on filedocumented as of this encounter Visit Diagnoses + + | Diagnosis | + + | S/P orthopedic surgery, follow-up exam - Primary Follow-up examination, following | | other surgery | + + documented in this encounter"
--- OUTSIDE RECORDS SUMMARY | ~2019-03-21 | XMS | Encounter Summary ---
Demographics + + + | Address | [address] | | | [place] [address] | + + + | Home Phone | | + + + | Preferred Language | Unknown | + + + | Marital Status | | + + + | Muslim Affiliation | Unknown | + + + | Race | Unknown | + + + | Ethnic Group | Unknown | + + + Author + + + | Author | [facility] | | | and [place] | + + + | Organization | [facility] | | | and [place] | [...] Team Providers + +------+ + | Care Grab Driver Name | Role | Phone | + [...] | | | | | pain | [address] | [address] | | | | | | [place] | [address] | | | | | | [address] | [place] | | | | | | [place], | [address] Phone: | | | | | | [place] [address] | [phone] | | | | | | Phone: | Fax: | | | | | | [phone] | [phone] | | | | | | Fax: | | | | | | | [phone] | | +--------+--------+ + + + + Encounter Details +--------+---------+ + + + | Date | Type | Department | Care Team | Description | +--------+---------+ + + + | 01/18/ | Office | [facility] | Quirino Olson | Right knee pain, | | 2018 | Visit | ORTHOPEDIC SURGERY | [address] | unspecified | | | | [address] [facility] | [place] | chronicity (Primary | | | | [place], [place] | [place] [address] | Dx); Primary | | | | [address] | [phone] | osteoarthritis of | | | | [phone] | | right knee; Acute | | [...]
--- OUTSIDE RECORDS SUMMARY | ~2019-03-21 | XMS | Encounter Summary ---
Demographics + + + | Address | [address] | | | [place] [address] | + + + | Home Phone | | + + + | Preferred Language | Unknown | + + + | Marital Status | | + + + | Yazdanism Affiliation | Unknown | + + + | Race | Unknown | + + + | Ethnic Group | Unknown | + + + Author + + + | Author | [facility] | | | and [place] | + + + | Organization | [facility] | | | and [place] [...] Team Providers + +------+ + | Care [employer] Name | Role | Phone | + +------+ + PCP | Unavailable | + +------+ + Reason for Visit + + + | Reason | Comments | + + + | New Patient | establish care with Dr. albarado | + + + | Hand Pain | right hand pain onset 2 months | + + + Evaluate & Treat (Routine) +--------+--------+ + + + + | Status | Reason | Specialty | Diagnoses / | Referred By | Referred To | | | | | Procedures | Contact | Contact | +--------+--------+ + + + + | Closed | | Orthopedic | Diagnoses | Quapril, | Kike, | | | | Surgery | Right hand | Lana Vale DO | Caro Carver MD | | | | | pain Right | [address] | [address] | | | | | wrist pain | [address] | [address] | | | | | | [address] | [place] | | | | | | [place], | [address] Phone: | | | | | | [place] [address] | [phone] | | | | | | Phone: | Fax: | | | | | | [phone] | [phone] | | | | | | Fax: | | | | | | | [phone] | | +--------+--------+ + + + + Encounter Details +--------+---------+ + + + | Date | Type | Department | Care Team | Description | +--------+---------+ + + + | 05/11/ | Office | [facility] | Caro Albarado | Carpal tunnel | | 2015 | Visit | ORTHOPEDIC SURGERY | MD Mehul [address] [facility] | syndrome of right | | | | [address] [facility] | [place], [place] | wrist (Primary Dx) | | | | [place], [place] | [address] | | | | | [address] | | | | | | [phone] | | | +--------+---------+ + + + [...] Temperature | 36.9 C (98.5 F) | 05/11/2015 4:28 PM | | | | | PST [...] Weight | 108.9 kg (240 lb) | 05/11/2015 4:28 PM | | | | | PST | | + + + + + | Height | 165.1 cm (5' 5") | 05/11/2015 4:28 PM | | | | | PST | | + + + + + | Body Mass Index | 39.94 | 05/11/2015 4:28 PM | | | | | PST | | + + + + + documented in this encounter Progress Notes Caro Albarado MD - 05/11/2015 6:07 PM PSTSee soap note [id number].Electronically sign ed by Caro Albarado MD at 05/11/2015 6:07 PM PSTCaro Albarado MD - 6:06 PM PST [facility] [address] [place] [id number] OFFICE NOTE CARO ALBARADO MD Patient: ALINE WHITLEY Admitting: MR #: [id number] LOC: PT TYPE: Adm Date: 05/11/2015 : 1955 IDENTIFICATION: Aline Whitley is a 60-year-old female who works for [employer]. She resides in [place], [place]. She sees Lana Conner for primary care. CHIEF COMPLAINT: Right hand pain, numbness and tingling. HISTORY: Aline states that she has a several-month history of gradually increasing nu mbness, pain and tingling in the right hand involving the thumb, index, and long fingers. She does not recall a specific injury. She has been referred to our office for evaluation and care of this problem. She was seen in the emergency room at [facility] on the day after [place], 04/25/2015 and felt to have a nerve root impingement problem of some sort. She has tried wearing a splint at night and when at rest but finds t hat it is uncomfortable and she removes it so it has therefore not been helpful to her. PAST MEDICAL HISTORY: Liver cirrhosis secondary to autoimmune hepatitis, chronic back viola n, thyroid disease and widespread osteoarthritis. PAST SURGICAL HISTORY: Includes hysterectomy, tubal ligation, cholecystectomy, and adenoi dectomy and tonsillectomy. MEDICATION ALLERGIES: Include HYDROCODONE, OXYCODONE. CURRENT MEDICATIONS: Azathioprine 25 mg by mouth daily. Wellbutrin SR 100 mg by mouth daily. Rosette as needed. Lasix 40 mg by mouth daily. Levothyroxine 112 mcg by mouth daily. Claritin as needed. Prilosec 20 mg by mouth daily. Inderal 40 mg by mouth daily. Spironolactone 100 mg by mouth daily. Detrol 2 mg by mouth daily. Ultram as needed for pain. FAMILY HISTORY: Noncontributory. SOCIAL HISTORY: The patient denies use of nicotine or alcohol. REVIEW OF SYSTEMS: Positive for glasses, urine leakage, nocturnal urination, sinus diseas e, ringing in the ears, ear pain, hearing loss, nosebleeds, blood in the stomach, constipat ion, shoulder pain, osteoarthritis, skin bruisability, hair loss, depression and sleep pat tern change, headaches, tremors, numbness, change in handwriting, memory loss, shooting viola ns, fatigue and sleep difficulties. PHYSICAL EXAMINATION: The patient's right hand is examined. She has mild atrophy of the thenar eminence. She has decreased sensation in the thumb, index, and long fingers. She h as a positive Tinel's sign with percussion over the median nerve at the level of her wrist. Phalen's test is equivocal. ASSESSMENT: Right carpal tunnel syndrome. ADVICE: We will refer Aline for an urgent electrodiagnostic evaluation of her right u pper extremity. We will see her back in our office for a followup evaluation. It is likel y that she will require carpal tunnel release in right upper extremity. In the meantime, katina guevara have given her patient educational material regarding carpal tunnel syndrome. CARO ALBARADO MD Dictated by CARO ALBARADO MD 05/11/2015 18:06:50 Transcribed on 05/12/2015 08:35:31 by [facility] job# [id number] Confirmation #: [id number] cc: LANA CONNER MD documented in this encounter Plan of Treatment Not on filedocumented as of this encounter Visit Diagnoses + + | Diagnosis | + + | Carpal tunnel syndrome of right wrist - Primary Carpal tunnel syndrome | + + documented in this encounter
--- OUTSIDE RECORDS SUMMARY | ~2019-03-21 | XMS | Encounter Summary ---
Demographics + + + | Address | [address] | | | [place] [address] | + + + | Home Phone | | + + + | Preferred Language | Unknown | + + + | Marital Status | | + + + | Jainism Affiliation | Unknown | + + + | Race | Unknown | + + + | Ethnic Group | Unknown | + + + Author + + + | Author | [facility] | | | and [place] | + + + | Organization | [facility] | | | and [...] Team Providers + +------+ + | Care Mail Messenger Name | Role | Phone | + [...] Aniya JAMES | | | | | [phone] | [place] [address] | | +--------+ + + + + [...]
--- OUTSIDE RECORDS SUMMARY | ~2019-03-21 | XMS | Encounter Summary ---
Demographics + + + | Address | [address] | | | [place] [address] | + + + | Home Phone [...] | Author | [facility] | | | and [place] | + + + | Organization | [facility] | [...] Team Providers + +------+ + | Care Manager Landscape Name | Role | Phone | + +------+ + PCP | Unavailable | + +------+ + Encounter Details +--------+ + + + + | Date | Type | Department | Care Team | Description | +--------+ + + + + | 02/13/ | Imaging | [facility] | Provider, | | | 2018 | Exam | MED CTR EXTERNAL | MD [address] | | | | | IMAGING | [place]iya [place] | | | | | [phone] | [place] [address] | | +--------+ + + + + [...] | US ABDOMEN COMPLETE | Routin | 06/14/2013 | | Results for this | | | e | 8:15 AM | | procedure are in the | | | | PST | | results section. | + +--------+ + + + documented in this encounter Results US Abdomen Complete (06/14/2013 8:15 AM PST) + + | Specimen | [...]
--- OUTSIDE RECORDS SUMMARY | ~2019-03-21 | XMS | Encounter Summary ---
Demographics + + + | Address | [address] | | | [place] [address] | + + + | Home Phone | | + + + | Preferred Language | Unknown | + + + | Marital Status | | + + + | Episcopal Affiliation | Unknown | + + + | Race | Unknown | + + + | Ethnic Group | Unknown | + + + Author + + + | Author | [facility] | | | and [place] | + + + | Organization | [facility] | | | and [...] Team Providers + +------+ + | Care Investor Relations Director Name | Role | Phone | + +------+ + PCP | Unavailable | + +------+ + Encounter Details +--------+ + + + + | Date | Type | Department | Care Team | Description | +--------+ + + + + | 01/17/ | Orders Only | [facility] | Quirino Olson | Right knee pain, | | 2018 | | ORTHOPEDIC SURGERY | [address] | unspecified | | | | [address] [facility] | [place] | chronicity (Primary | | | | [place] | [place] [address] | Dx) | | | | [address] | [phone] | | | | | [phone] | | | +--------+ + + + [...]
--- OUTSIDE RECORDS SUMMARY | ~2019-03-21 | XMS | Encounter Summary ---
Demographics + + + | Address | [address] | | | [place] [address] | + + + | Home Phone | | + + + | Preferred Language | Unknown | + + + | Marital Status | | + + + | Confucianism Affiliation | Unknown | + + + | Race | Unknown | + + + | Ethnic Group | Unknown | + + + Author + + + | Author | [facility] | | | and [place] | + + + | Organization | [facility] | | | and [...] Team Providers + +------+ + | Care Customs Examiner Name | Role | Phone | + [...] Aniya JAMES | | | | | [phone] | [place] [address] | | +--------+ + + + + [...]
--- OUTSIDE RECORDS SUMMARY | ~2019-03-21 | XMS | Encounter Summary ---
Demographics + + + | Address | [address] | | | [place] [address] | + + + | Home Phone | | + + + | Preferred Language | Unknown | + + + | Marital Status | | + + + | Hinduism Affiliation | Unknown | + + + | Race | Unknown | + + + | Ethnic Group | Unknown | + + + Author + + + | Author | [facility] | | | and [place] | + + + | Organization | [facility] | | | and [place] [...] Team Providers + +------+ + | Care Leader Writer Name | Role | Phone | [...] | | | | pain Right | [address] | [address] | | | | | wrist pain | [address] | [address] | | | | | | [place] | [place] | | | | | | [place], | [address] Phone: | | | | | | [place] [address] | [phone] | | | | | | Phone: | Fax: | | | | | | [phone] | [phone] | | | | | | Fax: | | | | | | | [phone] | | +--------+--------+ + + + + Encounter Details +--------+---------+ + + + | Date | Type | Department | Care Team | Description | +--------+---------+ + + + | 10/07/ | Office | [facility] | Quirino Olson | Hepatic cirrhosis, | | 2015 | Visit | ORTHOPEDIC SURGERY | [address] | unspecified hepatic | | | | [address] [facility] | [place] | cirrhosis type (HCC) | | | | [place], [place] | [place] [address] | (Primary Dx); | | | | [address] | [phone] | Diuretics causing | | | | [phone] | | adverse effect in | | [...]
--- OUTSIDE RECORDS SUMMARY | ~2019-03-21 | XMS | Encounter Summary ---
Demographics + + + | Address | [address] | | | [place] [address] | + + + | Home Phone | | + + + | Preferred Language | Unknown | + + + | Marital Status | | + + + | Anabaptism Affiliation | Unknown | + + + | Race | Unknown | + + + | Ethnic Group | Unknown | + + + Author + + + | Author | [facility] | | | and [place] | + + + | Organization | [facility] | | | and [...] Team Providers + +------+ + | Care Small Stock Facer Name | Role | Phone | + +------+ + PCP | Unavailable | + +------+ + Encounter Details +--------+ + + + + | Date | Type | Department | Care Team | Description | +--------+ + + + + | 02/13/ | Imaging | ELENO CHO | Provider, | | | 2018 | Exam | MED CTR EXTERNAL | MD [address] | | | | | IMAGING | [place]iya JAMES | | | | | [phone] | [place] [address] | | +--------+ + + + + [...]
--- OUTSIDE RECORDS SUMMARY | ~2019-03-21 | XMS | Encounter Summary ---
Demographics + + + | Address | [address] | | | [place] [address] | + + + | Home Phone | | + + + | Preferred Language | Unknown | + + + | Marital Status | | + + + | Restorationist Affiliation | Unknown | + + + | Race | Unknown | + + + | Ethnic Group | Unknown | + + + Author + + + | Author | [facility] | | | and [place] | + + + | Organization | [facility] | | [...] Team Providers + +------+ + | Care Helpdesk Administrator Name | Role | Phone | + +------+ + PCP | Unavailable | + +------+ + Encounter Details +--------+ + + + + | Date | Type | Department | Care Team | Description | +--------+ + + + + | 11/26/ | Orders Only | [facility] | Provider, | | | 2018 | | SYSTEM GENERIC OP | [address] | | | | | [address] | [place] | | | | | [address] [place] | [place] [address] | | | | | [address] | | | | | | [phone] | | | +--------+ + + + [...]
--- OUTSIDE RECORDS SUMMARY | ~2019-03-21 | XMS | Encounter Summary ---
Demographics + + + | Address | [address] | | | [place] [address] | + + + | Home Phone | | + + + | Preferred Language | Unknown | + + + | Marital Status | | + + + | Worship Affiliation | Unknown | + + + | Race | Unknown | + + + | Ethnic Group | Unknown | + + + Author + + + | Author | [facility] | | | and [place] | + + + | Organization | [facility] | | | and [...] Team Providers + +------+ + | Care Training And Quality Manager Name | Role | Phone | + +------+ + PCP | Unavailable | + +------+ + Encounter Details +--------+ + + + + | Date | Type | Department | Care Team | Description | +--------+ + + + + | 03/09/ | Hospital | [facility] | Morgan Woo MD | 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 | + +--------+ + + + | FERRITIN | Routin | 03/09/2015 | Benign neoplasm of | Results for this | | | e | 11:45 AM | tongue | procedure are in the | | | | PST | | results section. | + +--------+ + + + | BASIC METABOLIC | Routin | 03/09/2015 | Benign neoplasm of | Results for this | | PANEL | e | 11:45 AM | tongue | procedure are in the | | | | PST | | results section. | + +--------+ + + + documented in this encounter Results Basic Metabolic Panel (03/09/2015 [...] | | | | | mg/dL | [facility] | | | | | | [facility] | | | | | | CENTER - | | | | | | LABORATORY | | + + + + + + | eGFR if not | 60Comment: GLOMERULAR | >=60 | [facility] | | | | [facility]TR[facility] | mL/min/1.73m2 | [facility] | | | [facility] | RATE,ESTIMATED | | MEDICAL | | | | mL/min/1.56j2Nehp than | | CENTER - | | [...] + | [facility] | [address] | [place], [place] | [phone] | | [facility] | | [address] | | | - LABORATORY | | | | + + + + + Ferritin (03/09/2015 11:45 AM PST) + +-------+ + + + | Component | Value | Ref Range | Performed | Pathologist | | | | | At | Signature | + +-------+ + + + | FERRITIN | 27 | 11-<307 ng/mL | [facility] | | | | | [...] + | [facility] | [address] | [place] | [phone] | | [facility] | | [address] | | | - LABORATORY | | | | + + + + + Vitamin B-12 (03/09/2015 11:45 AM PST) + + + + + + | Component | Value | Ref Range | Performed | Pathologist | | | | | At | Signature | + + + + + + | VITAMIN | 406Comment: DEFICIENT: | 180 - 914 pg/mL | [facility] | | | B-12 | <145 | | [facility] | | | | pg/mLINDETERMINATE: | [...] [address] | [place] | [phone] | | [facility] | | [address] | | | - LABORATORY | | | | + + + + + documented in this encounter Visit Diagnoses + + | Diagnosis | + + | Benign neoplasm of tongue | + + documented in this encounter"
--- OUTSIDE RECORDS SUMMARY | ~2019-03-21 | XMS | Encounter Summary ---
Demographics + + + | Address | [address] | | | [place] [address] | + + + | Home Phone | | + + + | Preferred Language | Unknown | + + + | Marital Status | | + + + | Yazidi Affiliation | Unknown | + + + | Race | Unknown | + + + | Ethnic Group | Unknown | + + + Author + + + | Author | [facility] | | | and [place] | + + + | Organization | [facility] | | | and [place] [...] Team Providers + +------+ + | Care Reconciliation Analyst Name | Role | Phone | + +------+ + PCP | Unavailable | + +------+ + Encounter Details +--------+ + + + + | Date | Type | Department | Care Team | Description | +--------+ + + + + | 09/07/ | Hospital | [facility] | Celeste Ross | Hepatic cirrhosis, | | 2018 | Encounter | MED CTR ULTRASOUND | [address] | unspecified hepatic | | | | [address] [place] | [facility] | cirrhosis type, | | | | [place], [place] | [address] [place], [place] | unspecified whether | | | | [address] | [address] | ascites present | | | | [phone] | [phone] | (HCC) | | | | | | | [...] +--------+ + + + | US ABDOMEN LIMITED | Routin | 09/07/2017 | Hepatic cirrhosis, | Results for this | | | e | 1:17 PM | unspecified hepatic | procedure are in the | | | | PDT | cirrhosis type, | results section. | | | | | unspecified whether | | | | | | ascites present | | | | | | (HCC) | | + +--------+ + + + documented in this encounter Results US Abdomen Limited (09/07/2017 1:17 PM PDT) + + | Specimen | + + | | + + + + + | Narrative | Performed At | + + + | US ABDOMEN LIMITED 09/07/2017 12:59 PM HISTORY: Hepatic | [facility] | | cirrhosis, unspecified hepatic cirrhosis type, unspecified whether | | | ascites present (HCC). COMPARISON: None. PROTOCOL: Young scale | | | and Doppler images of the abdomen. FINDINGS: A tiny amount of | | | ascites is observed in the right upper quadrant, right lower | | | quadrant, and left lower quadrant. IMPRESSION - Tiny ascites. | | | A preliminary report was given to Celeste Ross at 1315 hours by | | | the tractor operator. Dictated and Signed by: Mark Anthony Finn MD | | | Electronically signed: 09/07/2017 2:25 PM | | + + + + + | Procedure Note | + + | Vitaly, Rad Results In - 09/07/2017 2:28 PM PDT US ABDOMEN LIMITED 09/07/2017 12:59 PM | | | | HISTORY: Hepatic cirrhosis, unspecified hepatic cirrhosis type, unspecified | | whether ascites present (HCC). | | | | COMPARISON: None. | | | | PROTOCOL: Young scale and Doppler images of the abdomen. | | | | FINDINGS: | | A tiny amount of ascites is observed in the right upper quadrant, right lower | | quadrant, and left lower quadrant. | | | | IMPRESSION - | | Tiny ascites. | | | | A preliminary report was given to Celeste Ross at 1315 hours by the | | tractor operator. | | | | Dictated and Signed by: Mark Anthony Finn MD | | Electronically signed: 09/07/2017 2:25 PM | + + + +---------+ + + | Performing | Address | City/State/Zipcode | Phone Number | | Organization | | | | + +---------+ + + | [facility] | | | | + +---------+ + + documented in this encounter Visit Diagnoses + + | Diagnosis | + + | Hepatic cirrhosis, unspecified hepatic cirrhosis type, unspecified whether ascites | | present (HCC) | + + documented in this encounter"
--- OUTSIDE RECORDS SUMMARY | ~2019-03-21 | XMS | Encounter Summary ---
Demographics + + + | Address | [address] | | | [place] [address] | + + + | Home Phone | | + + + | Preferred Language | Unknown | + + + | Marital Status | | + + + | Confucianist Affiliation | Unknown | + + + | Race | Unknown | + + + | Ethnic Group | Unknown | + + + Author + + + | Author | [facility] | | | and [place] | + + + | Organization | [facility] | | | [...] Team Providers + +------+ + | Care Winding Lathe Operator Name | Role | Phone | [...] | | | | | pain | [address] | [address] | | | | | | [address] | [address] | | | | | | [address] | [place] | | | | | | [place], | [address] Phone: | | | | | | [place] [address] | [phone] | | | | | | Phone: | Fax: | | | | | | [phone] | [phone] | | | | | | Fax: | | | | | | | [phone] | | +--------+--------+ + + + + Encounter Details +--------+---------+ + + + | Date | Type | Department | Care Team | Description | +--------+---------+ + + + | 01/18/ | Office | [facility] | Quirino Olson | Right knee pain, | | 2018 | Visit | ORTHOPEDIC SURGERY | [address] | unspecified | | | | [address] [facility] | [place] | chronicity (Primary | | | | [place], [place] | [place] [address] | Dx); Primary | | | | [address] | [phone] | osteoarthritis of | | | | [phone] | | right knee; Acute | | [...]
--- OUTSIDE RECORDS SUMMARY | ~2019-03-21 | XMS | Encounter Summary ---
Demographics + + + | Address | [address] | | | [place] [address] | + + + | Home Phone | | + + + | Preferred Language | Unknown | + + + | Marital Status | | + + + | Faith Affiliation | Unknown | + + + | Race | Unknown | + + + | Ethnic Group | Unknown | + + + Author + + + | Author | [facility] | | | and [place] | + + + | Organization | [facility] | | | and [place] [...] Team Providers + +------+ + | Care Research Quality Assurance Analyst Name | Role | Phone | + +------+ + PCP | Unavailable | + +------+ + Encounter Details +--------+ + + + + | Date | Type | Department | Care Team | Description | +--------+ + + + + | 01/17/ | Orders Only | [facility] | Quirino Olson | Right knee pain, | | 2018 | | ORTHOPEDIC SURGERY | [address] | unspecified | | | | [address] [facility] | [place] | chronicity (Primary | | | | [place] | [place] [address] | Dx) | | | | [address] | [phone] | | | | | [phone] | | | +--------+ + + + [...]
--- OUTSIDE RECORDS SUMMARY | ~2019-03-21 | XMS | Encounter Summary ---
Demographics + + + | Address | [address] | | | [place] [address] | + + + | Home Phone [...] + | Organization | [facility] | | | and [place] [...] Team Providers + +------+ + | Care Reducing Machine Operator Name | Role | Phone | [...] Closed | | Pulmonology | Diagnoses | Quaempts, | Kali, | | | | | LYLE | Morgan Vale DO | MD Duncan | | | | | Procedures | [id number] | [address] | | | | | NEW PT | [facility]ATED | SHON MENENDEZ, | | | | | CONSULT | [facility] | [place] [address] | | | | | | BILL, | Phone: | | | | | | [place] [address] | [phone] | | | | | | Phone: | Fax: | | | | | | [phone] | [phone] | | | | | | Fax: | | | | | | | [phone] | | +--------+--------+ + + + + Encounter Details +--------+---------+ + + + | Date | Type | Department | Care Team | Description | +--------+---------+ + + + | 01/30/ | Office | [facility] [place] | Duncan Bass, | Shortness of breath | | 2017 | Visit | PULMONARY [address] | (Primary Dx); | | | | [place], | [place], [place] | Asthma, unspecified | | | | [place] [address] | [address] | asthma severity, | | | | [phone] | | unspecified whether | | | [...] ou have any questions. Talk to your epic cadence analyst regarding the use of this medicine in children. Special care may be needed. What side effects may I notice from receiving this medicine? Side effects that you should report to your doctor or health health care specialist as soon as p ossible: allergic reactions [...] attention (report to your doctor or health health care specialist if they continue or are bothersome): cough [...] this medicine? Tell your doctor or health health care specialist if your symptoms do not improve. Do [...] [facility] They have not completed pulmonary rehabilitation [...] Tunnel Release; Surgeon: Ramon Stokes MD; Location: [facility] MAIN OR CHOLECYSTECTOMY HYSTERECTOMY endometriosis SINUS [...] possible ischemic heart disease as described ab ashley. 3. Pulmonary clinic follow-up appointment to review [...]
--- OUTSIDE RECORDS SUMMARY | ~2019-03-21 | XMS | Encounter Summary ---
Demographics + + + | Address | [address] | | | [place] [address] | + + + | Home Phone | | + + + | Preferred Language | Unknown | + + + | Marital Status | | + + + | Gnosticist Affiliation | Unknown | + + + | Race | Unknown | + + + | Ethnic Group | Unknown | + + + Author + + + | Author | [facility] | | | and [place] | + + + | Organization | [facility] | [...] Team Providers + +------+ + | Care Customer Service Operator Name | Role | Phone | + +------+ + PCP | Unavailable | + +------+ + Encounter Details +--------+ + + + + | Date | Type | Department | Care Team | Description | +--------+ + + + + | 11/10/ | Orders Only | [facility] | Morgan Conner, | | | 2017 | | CONVERSION [address] | [place] [address] | | | | | [place]IGH | [facility] | | | | | [place] | [place] [address] | | | | | [address] | [phone] | | | | | [phone] | | | +--------+ + + + [...] | MV DecT: 242.35 ms MV E Jsoe: 0.78 m/s MV E/A Ratio: 1.05 | | | MV PHT: 70.28 ms MVA By PHT: 3.13 cm2 Septal e': 0.09 m/s | | | Septal E/e': 7.91 Lateral e': 0.10 m/s Lateral E/e': 7.70 | | | RAP: 5 mmHg RVSP: 27.08 mmHg TR maxP.08 mmHg TR Vmax: | | | 2.34 m/s Twitchell Operator: FALGUNI Authenticated by: Obie Chávez | | [...] cmLVIDd: 3.94 cmLVPWd: 0.91 cmLVOT Area: 3.04 og6ZMEP Diam: 1.96 | | cm%FS: 34.07 %EF(Teich): [...] | | (A-L): 19.69 ml/m2LAAs A2C: 16.50 yx5HVRBN A-L A2C: 43.31 mlLALs A2C: 5.34 | | cmLAAs A4C: 16.36 ss5UZEYB A-L A4C: 39.12 mlLALs A4C: 5.80 cmRAAs: 10.82 | | xx2RDNRT A-L: 22.52 mlRAESV MOD: 21.44 mlRALs: 4.41 cmTAPSE: 2.46 cmAV maxPG: | | 13.17 mmHgAV meanP.06 mmHgAV Vmax: 1.81 m/Stephie Vmean: 1.14 m/Stephie VTI: 33.72 | | cmAVA Vmax: 1.90 cm2AVA (VTI): 2.15 xd9XDWO Vmax: 0.00 cm2/m2AVAI (VTI): 0.00 | | cm2/m2LVOT maxP.14 mmHgLVOT meanP.74 mmHgLVSI Dopp: 33.37 ml/m2LVSV Dopp: | | 72.76 mlLVOT Vmax: 1.13 m/sLVOT Vmean: 0.78 m/sLVOT VTI: 23.92 cmMV A Jose: | | 0.74 m/sMV DecT: 242.35 msMV E Jose: 0.78 m/sMV E/A Ratio: 1.05MV PHT: 70.28 | | msMVA By PHT: 3.13 le1Grgdsk e': 0.09 m/sSeptal E/e': 7.91Lateral e': 0.10 | | m/sLateral E/e': 7.70RAP: 5 mmHgRVSP: 27.08 mmHgTR maxP.08 mmHgTR Vmax: | | 2.34 m/s Twitchell Operator: ANNETTAuthenticated by: Obie Finkpaulding county hospitalReport Date/Time: 11-11-2016 | | 06:30:59 IMPRESSION: [...] |TR Vmax: 2.34 m/s | | | |Twitchell Operator: FALGUNI | |Authenticated by: Obie Chávez | [...]
--- OUTSIDE RECORDS SUMMARY | ~2019-03-21 | XMS | Encounter Summary ---
Demographics + + + | Address | [address] | | | [place] [address] | + + + | Home Phone [...] + | Organization | [facility] | | | and [place] [...] Team Providers + +------+ + | Care Chopped Strand Operator Name | Role | Phone | [...] | SR | | | | | [phone] | | | +--------+ + + + [...]
--- OUTSIDE RECORDS SUMMARY | ~2019-03-21 | XMS | Encounter Summary ---
Demographics + + + | Address | [address] | | | [place] [address] | + + + | Home Phone | | + + + | Preferred Language | Unknown | + + + | Marital Status | | + + + | Judaism Affiliation | Unknown | + + + | Race | Unknown | + + + | Ethnic Group | Unknown | + + + Author + + + | Author | [facility] | | | and [place] | + + + | Organization | [facility] | | | and [place] | + [...] Providers + +------+ + | Care Supervisor Pleating Name | Role | Phone | + [...] | | | | | | | [address] | | +--------+--------+ + + + + [...] [place]. [place] | | | | | [phone] | [place] [address] | | +--------+ + + + + [...] for comparison only - no result from [facility]. | | + + + + +---------+ + + | Performing | Address | City/State/Zipcode | Phone Number | | Organization | | | | + +---------+ + + | [facility] | | | | + +---------+ + + documented in this encounter Visit Diagnoses Not on filedocumented in this encounter"
--- OUTSIDE RECORDS SUMMARY | ~2019-03-21 | XMS | Encounter Summary ---
Demographics + + + | Address | [address] | | | [place] [address] | + + + | Home Phone | | + + + | Preferred Language | Unknown | + + + | Marital Status | | + + + | Sikhism Affiliation | Unknown | + + + | Race | Unknown | + + + | Ethnic Group | Unknown | + + + Author + + + | Author | [facility] | | | and [place] | + + + | Organization | [facility] | [...] Team Providers + +------+ + | Care Sales Agent Fire Insurance Name | Role | Phone | + [...] + + | 01/31/ | Emergency | [facility] | Reza Wynn, | Other ascites | | 2019 - | | MEDICAL CENTER | [address] | (Primary Dx); | | | | EMERGENCY CENTER | [place] [address] | Generalized | | 02/01/ | | [address] | [phone] | abdominal pain; | | 2019 | | [place], [place] | | Autoimmune hepatitis | | | | [address] | | (HCC) | | | | [phone] | | | +--------+ + + + [...] be sent through Care Everywhere.Abdominal Pain, Adult (Thai)Ascites (Thai)documented in this encounter Medications at Time of [...] | | | MRN: | | | [id number] | | | [id number] | | | riteri | | | [...] | | | St. | | | Tram | | | y | | | [...] | | | St. | | | Tram | | | y | | | [...] | | | St. | | | Tram | | | y | | | [...] Acuity | | | | | | [place] | | | | | | Health [...] | | | St. | | | Tram | | | y | | | [...] | | | 2019 | | | [place] | | | | | | Health [...] | | | St. | | | Tram | | | y H. | | | [place] | | | [place] | | | Emerge | | | ncy | | | Chief | | | Compla | | | int: | | | SHAKY | | | Sep | | | 1, | | | 2019 | | | [facility] | [facility] | | | Tram | | | y H. | | [...] | | | St. | | | Tram | | | y H. | | [...] | | | St. | | | Tram | | | y H. | | [...] | | | St. | | | Tram | | | y H. | | [...] | | | St. | | | Tram | | | y H. | | [...] | | | St. | | | Tram | | | y H. | | [...] | | | St. | | | Tram | | | y H. | | [...] | | | 2018 | | | [place] | | | | | | Health [...] | | | St. | | | Tram | | | y H. | | [...] MD | | | | | | Auto Design Detailer | | | al | | | [...] | | N, | | | SENIOR PROJECT MANAGER-C | | | Nurse | | [...] | [facility] | | | Result | [facility];[address] | | LABORATORY | | | | [address];[place] [address] | | | | + + + + + + | RESULT | NO GROWTH 4 DAYS | | [facility] | | | | | | LABORATORY | | + + + + + + | RESULT | Testing performed at | | [facility] | | | | TCL, [address] [facility] | | LABORATORY | | | | [place], [place] | | | | | | [id number]: Testing | | | | | | performed at [facility], [address] | | | | | | [place], [place] | | | | | | [address] | | | | + + + + + + + + | Specimen | + + | Body Fluid - Ascitic | | fluid sample | | (specimen) | + + + + + + + | Performing | Address | City/State/Zipcode | Phone Number | | Organization | | | | + + + + + | [facility] | [address] | [place] [address] | [phone] | + + + + + Cell [...] + + + | BF RBC | <22465 | /mm3 | [facility] | | | [...] | | | Counted | performed at [facility];[address] | | LABORATORY | | | | [facility];[place], [place] | | | | | | [id number] ON 02/01 | | | | | [...] [facility] | [address] | [place] [address] | [phone] | + + + + + Urinalysis [...] - 1.030 | [facility] | | | [place], | | | LABORATORY | | | [...] | | | OXALATE | performed at [facility];[address] | | LABORATORY | | | [facility] | [address];[place] | | | | | | [address] | | | | + + + [...] | + + + + + | [facility] | [address] | [place] [address] | [phone] | + + + + + Lipase (01/31/2019 9:42 PM PDT) + + + + + + | Component | Value | Ref Range | Performed | Pathologist | | | | | At | Signature | + + + + + + | Lipase | 66 (H)Comment: Testing | 12 - 53 U/L | SYD | | | | performed at [facility];[address] | | LABORATORY | | | | [address];[place], [place] | | | | | | [address] | | | | + + + + + + + + | Specimen | + + | Blood | + + + + + + + | Performing | Address | City/State/Zipcode | Phone Number | | Organization | | | | + + + + + | [facility] | [address] | [place] [address] | [phone] | + + + + + Comprehensive [...] | | | | | performed at [facility];[address] | | | | | | [facility];[place], [place] | | | | | | [address] | | | | + + + + + + + + | Specimen | + + | Blood | + + + + + + + | Performing | Address | City/State/Zipcode | Phone Number | | Organization | | | | + + + + + | [facility] | [address] | [place] [address] | [phone] | + + + + + CBC [...] | | | Absolute | performed at [facility];[address] | K/uL | LABORATORY | | | | [address];[place] | | | | | | [address] | | | | + + + + + + + + | Specimen | + + | Blood | + + + + + + + | Performing | Address | City/State/Zipcode | Phone Number | | Organization | | | | + + + + + | [facility] | [address] | [place] [address] | [phone] | + + + + + documented [...] mg | | | | Intravenous, ONCE, [facility] 01/31/19 at | | 19 10:25 | | | | | 2140, For 1 dose | | PM PDT | | | | + +-------+ +------+---+---+ +---+---+ | | | +---+---+ + +-------+ +------+---+---+ | morphine injection 4 mg 4 mg, | Given | 02/02/20 | 4 mg | | | | Intravenous, ONCE, [facility] 01/31/19 at | | 19 12:05 | | | | | 2320, For 1 dose | | AM PDT | | | | + +-------+ +------+---+---+ +---+---+ | | | +---+---+ documented in this encounter"
--- OUTSIDE RECORDS SUMMARY | ~2019-03-21 | XMS | Encounter Summary ---
Demographics + + + | Address | [address] | | | [place] [address] | + + + | Home Phone | | + + + | Preferred Language | Unknown | + + + | Marital Status | | + + + | Denominational Affiliation | Unknown | + + + | Race | Unknown | + + + | Ethnic Group | Unknown | + + + Author + + + | Author | [facility] | | | and [place] | + + + | Organization | [facility] | | | and [place] | [...] Team Providers + +------+ + | Care Local Government Legislator Name | Role | Phone | + +------+ + | Sri Razo | PCP | | + +------+ + Reason for Visit + + + | Reason | Comments | + + + | Leg Pain | | + + + | Leg Swelling | | + + + Encounter Details +--------+ + + + + | Date | Type | Department | Care Team | Description | +--------+ + + + + | 03/15/ | Emergency | [facility] | MonoJeffrey ramirez | Lymphedema (Primary | | 2019 | | [facility] | MD Anjum [address] | Dx) | | | | CENTER [address] | [address] [place] | | | | | [place], [place] | [place] [address] | | | | | [address] | [phone] | | | | | [phone] | | | +--------+ + + + [...] attachments cannot be sent through Care Everywhere.Lymphedema (Eng [facility])Leg Swelling in Both Legs ([place])Lymphedema, Managing ([place])Oxycodone tablets or c apsules ([place])documented in this encounter Medications at Time of [...] puffs into | 1 | 5 | // | | | (QVAR) 80 mcg/puff | [...] +---------+ + + | oxyCODONE | Take 1 tablet by | 6 | 0 | 03/15/20 | | | (ROXICODONE) 5 mg | mouth every 8 hours | tablet | | 19 | 9 | | tablet | as needed for Pain | | | | | | | for up to 2 days. | | | | | + + + +---------+ + + documented as of this encounter Plan of Treatment + +------+--------+ + + | Name | Type | Priori | Associated Diagnoses | Date/Time | | | | ty | | | + +------+--------+ + + | ED INFORMATION | SUNNY | Routin | | 03/15/2019 5:50 PM | | EXCHANGE | | e [...] | | n - | | | 15/ | | | 2019 | | | 5:51 | | | [...] | | | N: | | | [id number] | | | [id number] | | | riteri | | | [...] | | | St. | | | [place] | | | y | | | [...] | | | St. | | | [place] | | | y | | | [...] | | | St. | | | [place] | | | y | | | [...] Acuity | | | | | | [place] | | | | | | Health [...] | | | St. | | | [place] | | | y | | | [...] | | | 2019 | | | [place] | | | | | | Health [...] | | | St. | | | [place] | | | y H. | | | [place] | | | [place] | | | Emerge | | | ncy | | | Chief | | | Compla | | | int: | | | SHAKY | | | Sep | | | 1, | | | 2019 | | | [facility] | | | [facility] | | | [place] | | | y H. | | [...] | | | St. | | | [place] | | | y H. | | [...] | | | St. | | | [place] | | | y H. | | [...] | | | St. | | | [place] | | | y H. | | [...] | | | 2019 | | | [place] | | | | | | Health [...] | | | St. | | | [place] | | | y H. | | [...] | | | St. | | | [place] | | | y H. | | [...] MD | | | | | | Supervisor Display Fabrication | | | al | | | [...] | | | N, | | | INFRASTRUCTURE SOFTWARE ENGINEER-C | | | Nurse | | [...] | | | ed.? | | | 2018 | | | [employer] | | | tive | | | Medica | | | l | | | [employer]o | | | logies | | | , Inc[employer] | | | - | | | [email or web address] | | | llecti | | | vemedi | | | [email or web address] | | | m | +---+--------+ documented in this encounter Results Extra Blue Top Tube (03/15/2019 7:59 [...] [address] | [place] | [phone] | | [facility] | | [address] | | | - LABORATORY | | | | + + + + + B Type Natriuretic Peptide (03/15/2019 7:59 PM PST) + +---------+ + + + | Component | Value | Ref Range | Performed | Pathologist | | | | | At | Signature | + +---------+ + + + | BNP | 149 (H) | <100 pg/mL | [facility] | | | | | [...] ST. | [address] | [place], [place] | [phone] | | [facility] | | [address] | | | - LABORATORY | | | | + + + + + Comprehensive Metabolic Panel (03/15/2019 7:59 PM PST) + + + + + + | Component | Value | Ref Range | Performed | Pathologist | | | | | At | Signature | + + + + + + | Na | 138 | 136 - 145 | [facility] | | | | | mmol/L | [facility] | | | | | | MEDICAL | | | | | | CENTER - | | | | | | LABORATORY | | + + + + + + | K | 3.9 | 3.4 - 5.1 | [facility] | | | | | mmol/L | [facility] | | | | [...] 10 | 9 - 23 mg/dL | [facility] | | | | | | [facility] | | | | | | MEDICAL | | | | | | CENTER - | | | | | | LABORATORY | | + + + + + + | Creatinine | 0.77 | 0.55 - 1.02 | [facility] | | | | | mg/dL | [facility] | | | | | | MEDICAL | | | | | | CENTER - | | | | | | LABORATORY | | + + + + + + | eGFR if not | >60Comment: GLOMERULAR | >=60 | [facility] | | | | FILTRATION | mL/min/1.73m2 | [facility] | | | SLOVENIAN | RATE,ESTIMATED | | MEDICAL | | | | mL/min/1.32h4Scox than | | CENTER - | | [...] [address] | [place] | [phone] | | [facility] | | [address] | | | - LABORATORY | | | | + + + + + CBC with Differential (03/15/2019 7:59 PM PST) + + + + + + | Component | Value | Ref Range | Performed | Pathologist | | | | | At | Signature | + + + + + + | WBC | 4.6 | 4.0 - 11.0 K/uL | [facility] | | | | | [facility] | | | | | | MEDICAL | | | | | | CENTER - | | | | | | LABORATORY | | + + + + + + | RBC | 2.70 (L) | 3.70 - 5.20 | [facility] | | | | | M/uL | [facility] | | | | [...] | | | Granulocyte | | | [facility] | | | s | | | MEDICAL | | | | | | CENTER - | | | | | | LABORATORY | | + + + + + + | Absolute | 2.86 | 1.80 - 8.50 | [facility] | | | Neutrophils | | K/uL | [facility] | | | | | | MEDICAL | | | | | | CENTER - | | | | | | LABORATORY | | + + + + + + | Absolute | 0.86 | 0.60 - 3.20 | [facility] | | | Lymphocytes | | K/uL | [facility] | | | | | | MEDICAL | | | | | | CENTER - | | | | | | LABORATORY | | + + + + + + | Absolute | 0.58 | 0.00 - 1.00 | [facility] | | | Monocytes | | K/uL | [facility] | [...] | Basophils | | K/uL | [facility] | | | | | | MEDICAL | | | | | | CENTER - | | | | | | LABORATORY | | + + + + + + | Absolute | 0.01 | 0.00 - 0.03 | [facility] | | | Immature | | K/uL | [facility] | | | Granulocyte | | | MEDICAL | | | s | | | CENTER - | | | | | | LABORATORY | | + + + + + + | % nRBC | 0 | 0 - 2 per 100 | [facility] | | | | | WBCs | [facility] | | | | [...] [address] | [place] | [phone] | | [facility] | | [address] | | | - LABORATORY | | [...] ordering provider, | | | by the hydraulic auto jack mechanic, immediately following the exam. Dictated | | [...] to the ordering provider, by the | |hydraulic auto jack mechanic, immediately following the exam. | | | [...] + | Diagnosis | + + | Lymphedema - Primary Other lymphedema | + + documented in this encounter Administered Medications + +--------+ +-------+------+------+ | Medication Order | MAR | Action | Dose | Rate | Site | | | Action | Date | | | | + +--------+ +-------+------+------+ | diphenhydrAMINE (BENADRYL) | Given | 03/15/20 | 25 mg | | | | tablet 25 mg 25 mg, Oral, ONCE, | | 19 9:14 | | | | | 03/15/19 at 2100, For 1 dose | | PM PST | | | | + +--------+ +-------+------+------+ +---+---+ | | | +---+---+ + +-------+ +--------+---+---+ | fentaNYL (PF) injection 50 mcg | Given | 03/15/20 | 50 mcg | | | | 50 mcg, Intravenous, ONCE, Fri | | 19 7:18 | | | | | 03/15/19 at 1910, For 1 dose | | PM PST | | | | + +-------+ +--------+---+---+ +---+---+ | | | +---+---+ + +-------+ +--------+---+---+ | fentaNYL (PF) injection 50 mcg | Given | 03/15/20 | 50 mcg | | | | 50 mcg, Intravenous, ONCE, Mon | | 19 8:08 | | | | | 03/15/19 at 2009, For 1 dose | | PM PST | | | | + +-------+ +--------+---+---+ +---+---+ | | | +---+---+ + + + +------+---+---+ | oxyCODONE (ROXICODONE) 5 mg | Dispense | 03/15/20 | 5 mg | | | | tablet (ED prepack) 5 mg 5 mg, | to Home | 19 9:18 | | | | | Oral, EVERY 8 HOURS PRN, Moderate | | PM PST | | | | | Pain, Starting Mon03/15/19 at | | | | | | | 2055, For 2 days, For 2 days. , | | | | | | | Patient Address: [address] [place] [address] | | | | | | | [address];[place] [address], | | | | | | + + + +------+---+---+ +---+---+ | | | +---+---+ documented in this encounter
--- OUTSIDE RECORDS SUMMARY | ~2019-03-21 | XMS | Encounter Summary ---
Demographics + + + | Address | [address] | | | [place] [address] | + + + | Home Phone | | + + + | Preferred Language | Unknown | + + + | Marital Status | | + + + | Taoism Affiliation | Unknown | + + + | Race | Unknown | + + + | Ethnic Group | Unknown | + + + Author + + + | Author | [facility] | | | and [place] | + + + | Organization | [facility] | | | and [place] [...] Providers + +------+ + | Care Director Student Union Name | Role | Phone | + +------+ + PCP | Unavailable | + +------+ + Encounter Details +--------+ + + + + | Date | Type | Department | Care Team | Description | +--------+ + + + + | 09/07/ | Hospital | [facility] | Celeste Ross | Hepatic cirrhosis, | | 2018 | Encounter | [facility] | [address] | unspecified hepatic | | | | [address] [place] | [place] [facility] | cirrhosis type, | | | | [place], [place] | [address], [place] | unspecified whether | | | | [address] | [address] | ascites present | | | | [phone] | [phone] | (HCC) | | | | | [...] 1315 hours by | | | the bank appraiser. Dictated and Signed by: Mark Anthony Finn [...] at 1315 hours by the | | bank appraiser. | | | | Dictated and Signed [...]
--- OUTSIDE RECORDS SUMMARY | ~2019-03-21 | XMS | Encounter Summary ---
Demographics + + + | Address | [address] | | | [place] [address] | + + + | Home Phone | | + + + | Preferred Language | Unknown | + + + | Marital Status | | + + + | Sikh Affiliation | Unknown | + + + | Race | Unknown | + + + | Ethnic Group | Unknown | + + + Author + + + | Author | [facility] | | | and [place] | + + + | Organization | [facility] | [...] Providers + +------+ + | Care Manager Of Housekeeping Name | Role | Phone | + [...] [place] | | | | | [phone] | [place] [address] | | +--------+ + + + + [...]
--- OUTSIDE RECORDS SUMMARY | ~2019-03-21 | XMS | Encounter Summary ---
Demographics + + + | Address | [address] | | | [place] [address] | + + + | Home Phone | | + + + | Preferred Language | Unknown | + + + | Marital Status | | + + + | Yarsani Affiliation | Unknown | + + + | Race | Unknown | + + + | Ethnic Group | Unknown | + + + Author + + + | Author | and [facility] | | | and [place] | + + + | Organization | and [facility] | | | [...] Team Providers + +------+ + | Care Documentation Improvement Specialist Name | Role | Phone | + +------+ + PCP | Unavailable | + +------+ + Encounter Details +--------+ + + + + | Date | Type | Department | Care Team | Description | +--------+ + + + + | 11/26/ | Orders Only | [facility] | Provider, | | | 2018 | | SYSTEM GENERIC OP | MD [address] | | | | | CONVERSION [address] | [place] | | | | | [address] [place] | [place] [address] | | | | | [address] | | | | | | [phone] | | | +--------+ + + + [...]
--- OUTSIDE RECORDS SUMMARY | ~2019-03-21 | XMS | Encounter Summary ---
Demographics + + + | Address | [address] | | | [place] [address] | + + + | Home Phone | | + + + | Preferred Language | Unknown | + + + | Marital Status | | + + + | Pentecostal Affiliation | Unknown | + + + | Race | Unknown | + + + | Ethnic Group | Unknown | + + + Author + + + | Author | [facility] | | | and [place] | + + + | Organization | [facility] | | | and [...] Team Providers + +------+ + | Care Ichthyology Teacher Name | Role | Phone | [...] + | 04/25/ | Emergency | [facility] | Reza Pittman, | Paresthesias in | | 2015 | | [facility] | MD [address] | right hand (Primary | | | | CENTER [address] | [place] | Dx); Acute wrist | | | | [place] | [address] | pain, right | | | | [phone] | | | | | | [phone] | | | +--------+ + + + [...] cannot be sent through Care Everywhere.PARAESTHESIAS ( MALAWIAN)documented in this encounter Medications at Time of [...]
--- OUTSIDE RECORDS SUMMARY | ~2019-03-21 | XMS | Encounter Summary ---
Demographics + + + | Address | [address] | | | [place] [address] | + + + | Home Phone | | + + + | Preferred Language | Unknown | + + + | Marital Status | | + + + | Scientologist Affiliation | Unknown | + + + | Race | Unknown | + + + | Ethnic Group | Unknown | + + + Author + + + | Author | [facility] and [facility] [place] | | | and [place] | + + + | Organization | [facility] and [facility] [...] Team Providers + +------+ + | Care Mailing Clerk Name | Role | Phone | [...] | | | | pain Right | [address] | [address] | | | | | wrist pain | [address] | [address] | | | | | | [address] | [place] | | | | | | [place], | [address] Phone: | | | | | | [place] [address] | [phone] | | | | | | Phone: | Fax: | | | | | | [phone] | [phone] | | | | | | Fax: | | | | | | | [phone] | | +--------+--------+ + + + + Encounter Details +--------+---------+ + + + | Date | Type | Department | Care Team | Description | +--------+---------+ + + + | 05/11/ | Office | [facility] | Caro Albarado | Carpal tunnel | | 2015 | Visit | ORTHOPEDIC SURGERY | MD Mehul [address] [facility] | syndrome of right | | | | [address] [facility] | [place], [place] | wrist (Primary Dx) | | | | [place], [place] | [address] | | | | | [address] | | | | | | [phone] | | | +--------+---------+ + + + [...] - 05/11/2015 6:07 PM PSTSee soap note [id number].Electronically sign ed by Caro Albarado MD at 05/11/2015 6:07 PM PSTCaro Albarado MD - 6:06 PM PST [facility] [address] [place] [address] OFFICE NOTE CARO ALBARADO MD Patient: ALINE WHITLEY Admitting: MR #: [id number] LOC: PT TYPE: Adm Date: 05/11/2015 : 1955 IDENTIFICATION: Aline Whitley is a 60-year-old female who works for [employer]. She resides in [place], [place]. She sees Lana Conner for primary [...] was seen in the emergency room at [facility] on the day after [place], 04/25/2015 and felt to have a nerve [...] 05/11/2015 18:06:50 Transcribed on 05/12/2015 08:35:31 by [facility] job# [id number] Confirmation #: [id number] cc: LANA CONNER MD documented in this encounter Plan of Treatment Not on filedocumented as of this encounter Visit Diagnoses + + | Diagnosis | + + | Carpal tunnel syndrome of right wrist - Primary Carpal tunnel syndrome | + + documented in this encounter
--- OUTSIDE RECORDS SUMMARY | ~2019-03-21 | XMS | Encounter Summary ---
Demographics + + + | Address | [address] | | | [place] [address] | + + + | Home Phone | | + + + | Preferred Language | Unknown | + + + | Marital Status | | + + + | Mandaeism Affiliation | Unknown | + + + | Race | Unknown | + + + | Ethnic Group | Unknown | + + + Author + + + | Author | [facility] and [facility] | | | and [place] | + + + | Organization | [facility] and [facility] | | | and [place] [...] Team Providers + +------+ + | Care Audit Consultant Name | Role | Phone | + +------+ + PCP | Unavailable | + +------+ + Encounter Details +--------+ + + + + | Date | Type | Department | Care Team | Description | +--------+ + + + + | 02/14/ | Imaging | [facility] | Provider, | | | 2018 | Exam | MED CTR EXTERNAL | MD Sosa [address] | | | | | IMAGING | Aniya JAMES | | | | | [phone] | [place] [address] | | +--------+ + + + + [...]
--- OUTSIDE RECORDS SUMMARY | ~2019-03-21 | XMS | Encounter Summary ---
Demographics + + + | Address | [address] | | | [place] [address] | + + + | Home Phone | | + + + | Preferred Language | Unknown | + + + | Marital Status | | + + + | Restorationism Affiliation | Unknown | + + + | Race | Unknown | + + + | Ethnic Group | Unknown | + + + Author + + + | Author | [facility] and [facility] [place] | | | and [place] | + + + | Organization | [facility] and [facility] | | | and [...] Team Providers + +------+ + | Care Explosive Technician Name | Role | Phone | + +------+ + PCP | Unavailable | + +------+ + Encounter Details +--------+ + + + + | Date | Type | Department | Care Team | Description | +--------+ + + + + | 11/10/ | Orders Only | [facility] | Morgan Conner, | | | 2017 | | CONVERSION [address] | [place] [address] | | | | | DEAN LEIGH | [facility] | | | | | [place] | [place] [address] | | | | | [address] | [phone] | | | | | [phone] | | | +--------+ + + + [...] TR Vmax: | | | 2.34 m/s Web Content Director: FALGUNI Authenticated by: Obie Chávez | | [...] cmLVIDd: 3.94 cmLVPWd: 0.91 cmLVOT Area: 3.04 [id number] Diam: 1.96 | | cm%FS: 34.07 %EF(Teich): [...] | | (A-L): 19.69 ml/m2LAAs A2C: 16.50 [id number] A-L A2C: 43.31 mlLALs A2C: 5.34 | | cmLAAs A4C: 16.36 [id number] A-L A4C: 39.12 mlLALs A4C: 5.80 cmRAAs: 10.82 | | uh2ZPYIU A-L: 22.52 mlRAESV MOD: 21.44 mlRALs: 4.41 cmTAPSE: 2.46 cmAV maxPG: | | 13.17 mmHgAV meanP.06 mmHgAV Vmax: 1.81 m/Stephie Vmean: 1.14 m/Stephie VTI: 33.72 | | cmAVA Vmax: 1.90 cm2AVA (VTI): 2.15 ej2IMFB Vmax: 0.00 cm2/m2AVAI (VTI): 0.00 | | cm2/m2LVOT maxP.14 mmHgLVOT meanP.74 mmHgLVSI Dopp: 33.37 ml/m2LVSV Dopp: | | 72.76 mlLVOT Vmax: 1.13 m/sLVOT Vmean: 0.78 m/sLVOT VTI: 23.92 cmMV A Jose: | | 0.74 m/sMV DecT: 242.35 msMV E Jose: 0.78 m/sMV E/A Ratio: 1.05MV PHT: 70.28 | | msMVA By PHT: 3.13 vw1Veayyc e': 0.09 m/sSeptal E/e': 7.91Lateral e': 0.10 | | m/sLateral E/e': 7.70RAP: 5 mmHgRVSP: 27.08 mmHgTR maxP.08 mmHgTR Vmax: | | 2.34 m/s Web Content Director: ANNETTAuthenticated by: Obie Finkthe christ hospitalReport Date/Time: 11-11-2016 | | 06:30:59 IMPRESSION: [...] |TR Vmax: 2.34 m/s | | | |Web Content Director: FALGUNI | |Authenticated by: Obie Chávez | [...]
--- OUTSIDE RECORDS SUMMARY | ~2019-03-21 | XMS | Encounter Summary ---
Demographics + + + | Address | [address] | | | [place] [address] | + + + | Home Phone [...] Organization | [facility] | | | and [place] | [...] Team Providers + +------+ + | Care Futures Trader Name | Role | Phone | + +------+ + PCP | Unavailable | + +------+ + Encounter Details +--------+ + + + + | Date | Type | Department | Care Team | Description | +--------+ + + + + | 01/17/ | Orders Only | [facility] | Quirino Olson | Right knee pain, | | 2018 | | ORTHOPEDIC SURGERY | [address] | unspecified | | | | [address] [facility] | Caio Reyes | chronicity (Primary | | | | [place] | [place] [address] | Dx) | | | | [address] | [phone] | | | | | [phone] | | | +--------+ + + + [...]
--- OUTSIDE RECORDS SUMMARY | ~2019-03-21 | XMS | Encounter Summary ---
Demographics + + + | Address | [address] | | | [place] [address] | + + + | Home Phone [...] | Organization | [facility] | | | and [...] Team Providers + +------+ + | Care Louver Mortiser Operator Name | Role | Phone | + +------+ + PCP | Unavailable | + +------+ + Encounter Details +--------+ + + + + | Date | Type | Department | Care Team | Description | +--------+ + + + + | 06/26/ | Hospital | [facility] | | | | 2007 | Encounter | MED CTR XRAY [address] | | | | | | [place] | | | | | | [place] [address] | | | | | | [phone] | | | +--------+ + + + [...]
--- OUTSIDE RECORDS SUMMARY | ~2019-03-21 | XMS | Encounter Summary ---
Demographics + + + | Address | [address] | | | [place] [address] | + + + | Home Phone [...] Organization | [facility] and [facility] | [...] Team Providers + +------+ + | Care Optometrist Name | Role | Phone | + [...] [place] | | | | | [phone] | [place] [address] | | +--------+ + + + + [...]
--- OUTSIDE RECORDS SUMMARY | ~2019-03-21 | XMS | Encounter Summary ---
Demographics + + + | Address | [address] | | | [place] [address] | + + + | Home Phone [...] Author | [facility] | | | and [place] | + + + | Organization | [facility] and [facility] | | | and [...] Providers + +------+ + | Care Senior Network Engineer Name | Role | Phone | + +------+ + PCP | Unavailable | + +------+ + Encounter Details +--------+---------+ + + + | Date | Type | Department | Care Team | Description | +--------+---------+ + + + | 10/25/ | Office | [facility] | Caro Flores | S/P orthopedic | | 2016 | Visit | ORTHOPEDIC SURGERY | MD Mehul [address] [place] [address] | surgery, follow-up | | | | [address] [facility] | [place] | exam (Primary Dx) | | | | [place] | [address] | | | | | [address] | | | | | | [phone] | | | +--------+---------+ + + + [...] - 10/26/2015 6:08 PM Keiko mathur note [id number].Electronically sign ed by Caro Flores MD at 10/26/2015 6:08 PM Caro Gamez MD - 06/27/201 6 6:07 PM PDT [facility] [place] [facility]IC [facility] [address] [place] [address] OFFICE NOTE CARO FLORES MD Patient: ALINE WHITLEY Admitting: MR #: [id number] LOC: PT TYPE: Adm Date: 10/26/2015 : [...] Transcribed on 10/27/2015 17:36:43 by eri job# [id number] Confirmation #: [id number] cc: LANA MELCHOR DO documented in this encounter Plan of Treatment Not on filedocumented as of this encounter Visit Diagnoses + + | Diagnosis | + + | S/P orthopedic surgery, follow-up exam - Primary Follow-up examination, following | | other surgery | + + documented in this encounter"
--- OUTSIDE RECORDS SUMMARY | ~2019-03-21 | XMS | Encounter Summary ---
Demographics + + + | Address | [address] | | | [place] [address] | + + + | Home Phone [...] Organization | [facility] and [facility] | [...] Team Providers + +------+ + | Care Ignition Specialist Name | Role | Phone | + +------+ + PCP | Unavailable | + +------+ + Encounter Details +--------+ + + + + | Date | Type | Department | Care Team | Description | +--------+ + + + + | 06/26/ | Hospital | [facility] | | | | 2007 | Encounter | MED CTR XRAY [address] | | | | | | [place] | | | | | | [place] [address] | | | | | | [phone] | | | +--------+ + + + [...]
--- OUTSIDE RECORDS SUMMARY | ~2019-03-21 | XMS | Encounter Summary ---
Demographics + + + | Address | [address] | | | [place] [address] | + + + | Home Phone [...] | Organization | [facility] | | | and [...] Team Providers + +------+ + | Care Sap Grc Security Name | Role | Phone | + +------+ + PCP | Unavailable | + +------+ + Encounter Details +--------+ + + + + | Date | Type | Department | Care Team | Description | +--------+ + + + + | 02/13/ | Imaging | [facility] | Provider, | | | 2018 | Exam | MED CTR EXTERNAL | MD [address] | | | | | IMAGING | Aniya [address]AMES | | | | | [phone] | [place] [address] | | +--------+ + + + + [...]
--- OUTSIDE RECORDS SUMMARY | ~2019-03-21 | XMS | Encounter Summary ---
Demographics + + + | Address | [address] | | | [place] [address] | + + + | Home Phone | | + + + | Preferred Language | Unknown | + + + | Marital Status | | + + + | Hoahaoism Affiliation | Unknown | + + + | Race | Unknown | + + + | Ethnic Group | Unknown | + + + Author + + + | Author | [facility] and [facility] | | | and [place] | + + + | Organization | [facility] | | | and [...] Providers + +------+ + | Care Manager Basketball Name | Role | Phone | + +------+ + PCP | Unavailable | + +------+ + Encounter Details +--------+ + + + + | Date | Type | Department | Care Team | Description | +--------+ + + + + | 01/26/ | Abstract | [facility] [place] | Duncan Bass, | | | 2017 | | PULMONARY [address] | MD [address] | | | | | [place], | [place] | | | | | [place] [address] | [address] | | | | | [phone] | | | +--------+ + + + [...]
--- OUTSIDE RECORDS SUMMARY | ~2019-03-21 | XMS | Encounter Summary ---
Demographics + + + | Address | [address] | | | [place] [address] | + + + | Home Phone | | + + + | Preferred Language | Unknown | + + + | Marital Status | | + + + | Jain Affiliation | Unknown | + + + | Race | Unknown | + + + | Ethnic Group | Unknown | + + + Author + + + | Author | [facility] and [facility] | | | and [place] | + + + | Organization | [facility] and [facility] | | | and [place] [...] Team Providers + +------+ + | Care Dot Etcher Apprentice Name | Role | Phone | + [...] | | | | CENTER [address] | [address] | | | | | [place], [place] | [place] [address] | | | | | [address] | [phone] | | | | | [phone] | | | +--------+ + + + [...] cannot be sent through Care Everywhere.Lymphedema (Eng [facility])Leg Swelling in Both Legs (Gibraltarian)Lymphedema, Managing (Gibraltarian)Oxycodone tablets or c apsules (Gibraltarian)documented in this encounter Medications at Time of [...] | | | N: | | | [id number] | | | [id number] | | | riteri | | | [...] | | | St. | | | [place] | | | y | | | [...] | | | St. | | | [place] | | | y | | | [...] | | | St. | | | [place] | | | y | | | [...] Acuity | | | | | | [place] | | | | | | Health [...] | | | St. | | | [place] | | | y | | | [...] | | | 2019 | | | [place] | | | | | | Health [...] | | | St. | | | [place] | | | y H. | | | [place] | | | [place] | | | Emerge | | | ncy | | | Chief | | | Compla | | | int: | | | SHAKY | | | Sep | | | 1, | | | 2019 | | | [facility] | | | St[facility] | | | [place] | | | y H. | | [...] | | | St. | | | [place] | | | y H. | | [...] | | | St. | | | [place] | | | y H. | | [...] | | | St. | | | [place] | | | y H. | | [...] | | | 2019 | | | [place] | | | | | | Health [...] | | | St. | | | [place] | | | y H. | | [...] | | | St. | | | [place] | | | y H. | | [...] MD | | | | | | Chemical Blender | | | al | | | [...] | | | N, | | | RACING CAR DRIVER-C | | | Nurse | | | [...] [address] | [place] | [phone] | | [facility] | | [address] | | | - LABORATORY | | [...] ST. | [address] | [place], [place] | [phone] | | [facility] | | [address] | | | - LABORATORY | | [...] | 0.77 | 0.55 - 1.02 | [facility] | | | | | mg/dL | [facility] | | | | | | MEDICAL | | | | | | CENTER - | | | | | | LABORATORY | | + + + + + + | eGFR if not | >60Comment: GLOMERULAR | >=60 | [facility] | | | | FILTRATION | mL/min/1.73m2 | [facility] | | | [place] | RATE,ESTIMATED | | MEDICAL | | | | mL/min/1.07m1Hrbu than | | CENTER - | | [...] [address] | [place] | [phone] | | [facility] | | [address] | | | - LABORATORY | | [...] [address] | [place] | [phone] | | [facility] | | [address] | | | - LABORATORY | | [...] ordering provider, | | | by the warehouse receiving supervisor, immediately following the exam. Dictated | [...] to the ordering provider, by the | |warehouse receiving supervisor, immediately following the exam. | | [...] | | | | | Patient Address: [address] [place] [address] | | | | | | | [address];[place] [address], | | | | | | + + + +------+---+---+ +---+---+ | | | +---+---+ documented in this encounter
--- OUTSIDE RECORDS SUMMARY | ~2019-03-21 | XMS | Encounter Summary ---
Demographics + + + | Address | [address] | | | [place] [address] | + + + | Home Phone [...] Author | [facility] and Services [facility] | | | and [place] | + + + | Organization | [facility] | | | and [place] [...] Team Providers + +------+ + | Care Medical Field Representative Name | Role | Phone | + +------+ + PCP | Unavailable | + +------+ + Encounter Details +--------+ + + + + | Date | Type | Department | Care Team | Description | +--------+ + + + + | 12/19/ | Emergency | [facility] | Reza Lira MD | Forehead contusion, | | 2017 | [facility] | [address] | initial encounter; | | | | EMERGENCY CENTER | [place] [address] | Left shoulder | | | | [address] | [phone] | strain, initial | | | | [place], [place] | | encounter; | | | | [address] | | Fingernail injury, | | | | [phone] | | left, initial | | | [...] Conversion - 12/12/2018 11:52 PM PDT YOSELYN [id number] years | | FemaleCT HEAD WO CONTRAST12/19/2016 [...]
--- OUTSIDE RECORDS SUMMARY | ~2019-03-21 | XMS | Encounter Summary ---
Demographics + + + | Address | [address] | | | [place] [address] | + + + | Home Phone | | + + + | Preferred Language | Unknown | + + + | Marital Status | | + + + | Orthodoxy Affiliation | Unknown | + + + | Race | Unknown | + + + | Ethnic Group | Unknown | + + + Author + + + | Author | [facility] and [facility] | | | and [place] | + + + | Organization | [facility] and [facility] | | | and [place] [...] Team Providers + +------+ + | Care Board Attendant Name | Role | Phone | [...] | SR | | | | | [phone] | | | +--------+ + + + [...]
--- OUTSIDE RECORDS SUMMARY | ~2019-03-21 | XMS | Encounter Summary ---
Demographics + + + | Address | [address] | | | [place] [address] | + + + | Home Phone | | + + + | Preferred Language | Unknown | + + + | Marital Status | | + + + | Yarsanism Affiliation | Unknown | + + + | Race | Unknown | + + + | Ethnic Group | Unknown | + + + Author + + + | Author | [facility] | | | and [place] | + + + | Organization | [facility] | | | and [place] | + [...] Team Providers + +------+ + | Care Fly Winder Name | Role | Phone | + +------+ + PCP | Unavailable | + +------+ + Reason for Visit + + + | Reason | Comments | + + + | Abdominal Pain | | + + + Auth/Cert [...] + + | 01/13/ | Emergency | [facility] | Ronald Kasper MD | Other ascites | | 2019 | | MED CTR EM[facility] | [address] | (Primary Dx); | | | | CENTER [address] | [place], [place] | Abdominal pain, | | | | [place], [place] | [address] | unspecified | | | | [address] | | abdominal location | | | | [phone] | | | +--------+ + + + [...] + + + | Blood Pressure | 131/60 | 01/13/2019 7:18 PM | | | | | PDT | | + + + + + | Pulse | 103 | 01/13/2019 7:18 PM | | | | | PDT | | + + + + + | Temperature | 36.9 C (98.4 F) | 01/13/2019 7:18 PM | | | | | PDT | | + + + + + | Respiratory Rate | 16 | 01/13/2019 7:18 PM | | | | | PDT | | + + + + + | Oxygen Saturation | 97% | 01/13/2019 7:18 PM | | | | | PDT | | + + + + + | Inhaled Oxygen | - | - | | | Concentration | | | | + + + + + | Weight | 90.3 kg (199 lb) | 01/13/2019 7:18 PM | | | | | PDT | | + + + + + | Height | 165.1 cm (5' 5") | 01/13/2019 7:18 PM | | | | | PDT | | + + + + + | Body Mass Index | 33.12 | 01/13/2019 7:18 PM | | | | | PDT | | + + + + + documented in this encounter Discharge Instructions Instructions Ronald Kasper MD - 01/13/2019Call emergency department by 9 pm to confirm appo intment for paracentesis if you have not received a phone call by then. [facility] provider as needed. Do not drink or drive while on the pain medication. AttachmentsThe following attachments cannot be sent through Care Everywhere.Ascites (Englis h)Acetaminophen; Hydrocodone tablets or capsules (Swedish)documented in this encounter Medications at Time of [...] INFORMATION | SUNNY | Routin | | 01/13/2019 6:22 PM | | EXCHANGE | | e | | PDT | + +------+--------+ + + + +---------+--------+ + + | Name | Type | Priori | Associated Diagnoses | Order Schedule | | | | ty | | | + +---------+--------+ + + | US Guided | Imaging | STAT | Other ascites | Expected: | | Paracentesis | | | | 01/14/2019, Expires: | | | | | | 01/16/2020 | + +---------+--------+ + + documented as of this encounter Procedures + +--------+ + + + | Procedure Name | Priori | Date/Time | Associated Diagnosis | Comments | | | ty | | | | + +--------+ + + + | PTT | STAT | 01/13/2019 [...] | + +--------+ + + + | AMMONIA | STAT | 01/13/2019 | | Results for this | | | | 7:53 PM | | procedure are in the | | | | PDT | | results section. | + +--------+ + + + | COMPREHENSIVE | STAT | 01/13/2019 [...] | | | N: | | | [id number] | | | [id number] | | | riteri | | | [...] | | | St. | | | [place] | | | y | | | [...] | | | St. | | | [place] | | | y | | | [...] | | | St. | | | [place] | | | y | | | [...] | | | St. | | | [place] | | | y | | | [...] | | | St. | | | [place] | | | y H. | | | [place] | | | [place] | | | Emerge | | | ncy | | | Chief | | | Compla | | | int: | | | SHAKY | | | Sep | | | 1, | | | 2019 | | | [facility] | [facility] | | | [place] | | | y H. | | [...] | | | St. | | | [place] | | | y H. | | [...] | | | St. | | | [place] | | | y H. | | [...] | | | St. | | | [place] | | | y H. | | [...] | | | St. | | | [place] | | | y H. | | [...] | | | St. | | | [place] | | | y H. | | [...] | | | St. | | | [place] | | | y H. | | [...] | | | St. | | | [place] | | | y H. | | [...] | | | St. | | | [place] | | | y H. | | [...] | | | 2018 | | | [place] | | | | | | Health [...] | | | St. | | | [place] | | | y H. 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-C | | | Nurse | | [...] | | | [id number] | | | [id number] | | | 09 | | | [...] | +---+--------+ documented in this encounter Results PTT (01/13/2019 7:53 PM PDT) + +-------+ [...] [address] | [place] | [phone] | | [facility] | | [address] | | | - LABORATORY | | [...] | | Time | | seconds | [facility] | | | | | | MEDICAL | | | | | | CENTER - | | | | | | LABORATORY | | + + + + + + | INR | 1.6 (H)Comment: Usual | 0.9 - 1.1 | [facility] | | | | Oral Anticoagulation | | [facility] | | | | Range: 2.0 [...] + + | Performing | Address | City[facility]State[facility] | Phone Number | | Organization | | | | + + + + + | [facility]. | [address] | [place] | [phone] | | [facility] | | [address] | | | - LABORATORY | | | | + + + + + Ammonia (01/13/2019 7:53 PM PDT) + +--------+ + + + | Component | Value | Ref Range | Performed | Pathologist | | | | | At | Signature | + +--------+ + + + | Ammonia | 88 (H) | 11 - 32 umol/L | [facility] | | | | | [...] + | [facility] | [address] | [place] | [phone] | | [facility] | | [address] | | | - LABORATORY | | | | + + + + + Comprehensive Metabolic Panel (01/13/2019 7:53 PM PDT) + + + + + + | Component | Value | Ref Range | Performed | Pathologist | | | | | At | Signature | + + + + + + | Na | 132 (L) | 136 - 145 | [facility] | | | | | mmol/L | [facility] | | | | | | MEDICAL | | | | | | CENTER - | | | | | | LABORATORY | | + + + + + + | K | 3.8 | 3.4 - 5.1 | [facility] | | | | | mmol/L | [facility] | | | | | | MEDICAL | | | | | | CENTER - | | | | | | LABORATORY | | + + + + + + | Cl | 100 | 98 - 107 mmol/L | [facility] | | | | | | [facility] | | | | | | MEDICAL | | | | | | CENTER - | | | | | | LABORATORY | | + + + + + + | CO2 | 28 | 20 - 31 mmol/L | [facility] [...] + + + + | Glucose | 133 (H) | 60 - 106 mg/dL | [facility] | | | | | | [facility] | | | | | | MEDICAL | | | | | | CENTER - | | | | | | LABORATORY | | + + + + + + | BUN | 14 | 9 - 23 mg/dL | [facility] | | | | | | [facility] | | | | | | MEDICAL | | | | | | CENTER - | | | | | | LABORATORY | | + + + + + + | Creatinine | 0.92 | 0.55 - 1.02 | [facility] | | | | | mg/dL | [facility] | | | | | | MEDICAL | | | | | | CENTER - | | | | | | LABORATORY | | + + + + + + | eGFR if not | >60Comment: GLOMERULAR | >=60 | [facility] | | | | FILTRATION | mL/min/1.73m2 | [facility] | | | CUBAN | RATE,ESTIMATED | | MEDICAL | | | | mL/min/1.41d4Mwgb than | | CENTER - | | [...] + | Calcium | 8.3 (L) | 8.7 - 10.4 | [facility] | | | | | mg/dL | [facility] | | | | | | MEDICAL | | | | | | CENTER - | | | | | | LABORATORY | | + + + + + + | Albumin | 2.6 (L) | 3.2 - 4.8 g/dL | [facility] | | | | | | [facility] | | | | | | MEDICAL | | | | | | CENTER - | | | | | | LABORATORY | | + + + + + + | Bilirubin | 2.0 (H) | 0.3 - 1.2 mg/dL | [facility] | | | Total | | | [facility] | | | | | | MEDICAL | | | | | | CENTER - | | | | | | LABORATORY | | + + + + + + | Total | 7.5 | 5.7 - 8.2 g/dL | [facility] | | | Protein | | | [facility] | | | | | | MEDICAL | | | | | | CENTER - | | | | | | LABORATORY | | + + + + + + | AST | 39 (H) | 0 - 34 U/L | [facility] | | | | | | [facility] | | | | | | MEDICAL | | | | | | CENTER - | | | | | | LABORATORY | | + + + + + + | ALT | 21 | 10 - 49 U/L | [facility] | | | | | | [facility] | | | | | | MEDICAL | | | | | | CENTER - | | | | | | LABORATORY | | + + + + + + | Alkaline | 105 | 46 - 116 U/L | [facility] | | | Phosphatase | | | [facility] | | | | | | MEDICAL | | | | | | CENTER - | | | | | | LABORATORY | | + + + + + + | Globulin | 4.9 (H) | 2.1 - 3.8 g/dL | [facility] | | | | | | [facility] | | | | | | MEDICAL | | | | | | CENTER - | | | | | | LABORATORY | | + + + + + + | Albumin/Mary Carmen | 0.5 (L) | 0.8 - 1.9 | [facility] | | | bulin Ratio | | | [facility] | | | | | | MEDICAL | | | | | | CENTER - | | | | | | LABORATORY | | + + + + + + | BUN/Creatin | 15.2 | | [facility] | | | ine [...] + + | [facility] | [address] | [place] | [phone] | | [facility] | | [address] | | | - LABORATORY | | | | + + + + + CBC with Differential (01/13/2019 7:53 PM PDT) + + + + + + | Component | Value | Ref Range | Performed | Pathologist | | | | | At | Signature | + + + + + + | WBC | 5.5 | 4.0 - 11.0 K/uL | [facility] | | | | | | [facility] | | | | | | MEDICAL | | | | | | CENTER - | | | | | | LABORATORY | | + + + + + + | RBC | 3.14 (L) | 3.70 - 5.20 | [facility] | | | | | M/uL | [facility] | | | | | | MEDICAL | | | | | | CENTER - | | | | | | LABORATORY | | + + + + + + | Hemoglobin | 9.1 (L) | 11.5 - 16.0 | [facility] | | | | | g/dL | [facility] | | | | | | MEDICAL | | | | | | CENTER - | | | | | | LABORATORY | | + + + + + + | Hematocrit | 28.2 (L) | 34.0 - 47.0 % | [facility] | | | | | | [facility] | | | | | | MEDICAL | | | | | | CENTER - | | | | | | LABORATORY | | + + + + + + | MCV | 89.8 | 83.0 - 101.0 fL | [facility] | | | | | | [facility] | | | | | | MEDICAL | | | | | | CENTER - | | | | | | LABORATORY | | + + + + + + | MCH | 29.0 | 28.0 - 35.0 pg | [facility] [...] + + + + | RDW-SD | 48.8 (H) | 35.1 - 46.3 fL | [facility] | | | | | | [facility] | | | | | | MEDICAL | | | | | | CENTER - | | | | | | LABORATORY | | + + + + + + | Platelet | 109 (L) | 140 - 440 K/uL | [facility] | | | Count | | | [facility] | | | | | | MEDICAL | | | | | | CENTER - | | | | | | LABORATORY | | + + + + + + | MPV | 9.5 | 6.5 - 12.4 fL | [facility] | | | | | | [facility] | | | | | | MEDICAL | | | | | | CENTER - | | | | | | LABORATORY | | + + + + + + | % | 67.4 | 45.0 - 82.0 % | [facility] | | | Neutrophils | | | [facility] | | | | | | MEDICAL | | | | | | CENTER - | | | | | | LABORATORY | | + + + + + + | % | 11.8 (L) | 20.0 - 45.0 % | [facility] | | | Lymphocytes | | | [facility] | | | | | | MEDICAL | | | | | | CENTER - | | | | | | LABORATORY | | + + + + + + | % Monocytes | 15.7 (H) | 4.0 - 12.0 % | [facility] | | | | | | [facility] | | | | | | MEDICAL | | | | | | CENTER - | | | | | | LABORATORY | | + + + + + + | % | 3.4 | 0.0 - 5.0 % | [facility] | | | Eosinophils | | | [facility] | | | | | | MEDICAL | | | | | | CENTER - | | | | | | LABORATORY | | + + + + + + | % Basophils | 1.3 (H) | 0.0 - 1.0 % | [facility] | | | | | | [facility] | | | | | | MEDICAL | | | | | | CENTER - | | | | | | LABORATORY | | + + + + + + | % Immature | 0.4 | 0.0 - 0.4 % | [facility] | | | Granulocyte | | | [facility] | | | s | | | MEDICAL | | | | | | CENTER - | | | | | | LABORATORY | | + + + + + + | Absolute | 3.73 | 1.80 - 8.50 | [facility] | | | Neutrophils | | K/uL | [facility] | | | | | | MEDICAL | | | | | | CENTER - | | | | | | LABORATORY | | + + + + + + | Absolute | 0.65 | 0.60 - 3.20 | [facility] | | | Lymphocytes | | K/uL | [facility] | | | | | | MEDICAL | | | | | | CENTER - | | | | | | LABORATORY | | + + + + + + | Absolute | 0.87 | 0.00 - 1.00 | [facility] | | | Monocytes | | K/uL | [facility] | | | | | | MEDICAL | | | | | | CENTER - | | | | | | LABORATORY | | + + + + + + | Absolute | 0.19 | 0.00 - 0.40 | [facility] | | | Eosinophils | | K/uL | [facility] | | | | | | MEDICAL | | | | | | CENTER - | | | | | | LABORATORY | | + + + + + + | Absolute | 0.07 | 0.00 - 0.10 | [facility] | | | Basophils | | K/uL | [facility] | | | | | | MEDICAL | | | | | | CENTER - | | | | | | LABORATORY | | + + + + + + | Absolute | 0.02 | 0.00 - 0.03 | [facility] | [...] [address] | [place] | [phone] | | [facility] | | [address] | | | - LABORATORY | | | | + + + + + documented in this encounter Visit Diagnoses + + | Diagnosis | + + | Other ascites - Primary | + + | Abdominal pain, unspecified abdominal location | + + documented in this encounter Administered Medications + + + + +------+------+ | Medication Order | MAR | Action | Dose | Rate | Site | | | Action | Date | | | | + + + + +------+------+ | HYDROcodone-acetaminophen | Dispense | 01/14/20 | 1 tablet | | | | (NORCO) 5-325 mg per tablet (ER | to Home | 19 9:10 | | | | | Prepack) 1 tablet 1 tablet, | | PM PDT | | | | | Oral, EVERY 6 HOURS PRN, pain, | | | | | | | Starting 01/13/19 at 2103, | | | | | | | Patient Address: [address] [place] [address] Rd | | | | | | | [address], [place] [address], | | | | | | + + + + +------+------+ +---+---+ | | | +---+---+ documented in this encounter
--- OUTSIDE RECORDS SUMMARY | ~2019-03-21 | XMS | Encounter Summary ---
Demographics + + + | Address | [address] | | | [place] [address] | + + + | Home Phone | | + + + | Preferred Language | Unknown | + + + | Marital Status | | + + + | Adventism Affiliation | Unknown | + + + | Race | Unknown | + + + | Ethnic Group | Unknown | + + + Author + + + | Author | [facility] | | | and [place] | + + + | Organization | [facility] | [...] Team Providers + +------+ + | Care Title Search Manager Name | Role | Phone | [...] | +--------+ + + + + | 06/17/ | Clinical | [facility] [place] | Quirino Olson | Dressing change or | | 2015 | Support | ORTHOPEDIC SURGERY | [address] | removal, surgical | | | | [address] | [address] | wound (Primary Dx) | | | | [place], [place] | [place] [address] | | | | | [address] | [phone] | | | | | [phone] | | | +--------+ + + + [...] confirmed she will be here for her [facility] follow-up appt in our office. Patient will [...]
--- OUTSIDE RECORDS SUMMARY | ~2019-03-21 | XMS | Encounter Summary ---
Demographics + + + | Address | [address] | | | [place] [address] | + + + | Home Phone | | + + + | Preferred Language | Unknown | + + + | Marital Status | | + + + | Jewish Affiliation | Unknown | + + + | Race | Unknown | + + + | Ethnic Group | Unknown | + + + Author + + + | Author | [facility] | | | and [place] | + + + | Organization | [facility] | | | and [place] | [...] Team Providers + +------+ + | Care Probate Clerk Name | Role | Phone | + +------+ + PCP | Unavailable | + +------+ + Encounter Details +--------+ + + + + | Date | Type | Department | Care Team | Description | +--------+ + + + + | 02/13/ | Imaging | [facility] | Provider, | | | 2018 | Exam | MED CTR EXTERNAL | MD [address] | | | | | IMAGING | [place] | | | | | [phone] | [place] [address] | | +--------+ + + + + [...]
--- OUTSIDE RECORDS SUMMARY | ~2019-03-21 | XMS | Encounter Summary ---
Demographics + + + | Address | [address] | | | [place] [address] | + + + | Home Phone [...] | Author | [facility] | | | and [place] | + + + | Organization | [facility] | | | and [place] [...] Team Providers + +------+ + | Care Room Service Bellhop Name | Role | Phone | + +------+ + PCP | Unavailable | + +------+ + Encounter Details +--------+ + + + + | Date | Type | Department | Care Team | Description | +--------+ + + + + | 02/13/ | Imaging | [facility] | Provider, | | | 2018 | Exam | [facility] EXTERNAL | MD [address] | | | | | IMAGING | [place] | | | | | [phone] | [place] [address] | | +--------+ + + + + [...]
--- OUTSIDE RECORDS SUMMARY | ~2019-03-21 | XMS | Encounter Summary ---
Demographics + + + | Address | [address] | | | [place] [address] | + + + | Home Phone [...] Author | [facility] | | | and [place] | + + + | Organization | [facility] | [...] Providers + +------+ + | Care Senior Interactive Developer Name | Role | Phone | + [...] [place] | | | | | [phone] | [place] [address] | | +--------+ + + + + [...]
--- OUTSIDE RECORDS SUMMARY | ~2019-03-21 | XMS | Encounter Summary ---
Demographics + + + | Address | [address] | | | [place] [address] | + + + | Home Phone [...] | Organization | [facility] | | | and [...] Team Providers + +------+ + | Care Tobacco Shaker Name | Role | Phone | + [...] | SR | | | | | [phone] | | | +--------+ + + + [...]
--- OUTSIDE RECORDS SUMMARY | ~2019-03-21 | XMS | Encounter Summary ---
Demographics + + + | Address | [address] | | | [place] [address] | + + + | Home Phone [...] Author | [facility] | | | and [place] | + + + | Organization | [facility] | [...] Team Providers + +------+ + | Care Severity Of Illness Coordinator Name | Role | Phone | [...] [address] | | | | | [place], | [place] | | | | | [place] [address] | [address] | | | | | [phone] | | | +--------+ + + + [...]
--- OUTSIDE RECORDS SUMMARY | ~2019-03-21 | XMS | Encounter Summary ---
Demographics + + + | Address | [address] | | | [place] [address] | + + + | Home Phone [...] | Author | [facility] | | | and [place] | + + + | Organization | [facility] | | [...] Providers + +------+ + | Care Supervisor Adult Education Name | Role | Phone | + +------+ + PCP | Unavailable | + +------+ + Encounter Details +--------+ + + + + | Date | Type | Department | Care Team | Description | +--------+ + + + + | 06/26/ | Hospital | [facility] | | | | 2007 | Encounter | MED CTR XRAY [address] | | | | | | [place] | | | | | | [place] [address] | | | | | | [phone] | | | +--------+ + + + [...]
--- OUTSIDE RECORDS SUMMARY | ~2019-03-21 | XMS | Encounter Summary ---
Demographics + + + | Address | [address] | | | [place] [address] | + + + | Home Phone [...] Organization | [facility] | | | [...] Team Providers + +------+ + | Care Polysomnographer Name | Role | Phone | + +------+ + PCP | Unavailable | + +------+ + Reason for Visit +---------+ + | Reason | Comments | +---------+ + | Post Op | right carpal tunnel release dos 10/14/15 | +---------+ + Encounter Details +--------+---------+ + + + | Date | Type | Department | Care Team | Description | +--------+---------+ + + + | 12/06/ | Office | [facility] | Caro Flores | S/P orthopedic | | 2016 | Visit | ORTHOPEDIC SURGERY | MD Mehul [address] [place] [address] | surgery, follow-up | | | | [address] [facility] | [place] | exam (Primary Dx) | | | | [place], [place] | [address] | | | | | [address] | | | | | | [phone] | | | +--------+---------+ + + + [...] + + | Temperature | 36.6 C (97.9 F) | 12/07/2015 8:37 AM | | | [...] Weight | 106.6 kg (235 lb) | 12/07/2015 8:37 AM | | | | | PDT | | + + + + + | Height | 165.1 cm (5' 5") | 12/07/2015 8:37 AM | | | | | PDT | | + + + + + | Body Mass Index | 39.11 | 12/07/2015 8:37 AM | | | | | PDT | | + + + + + documented in this encounter Progress Notes Caro Flores MD - 12/07/2015 8:56 AM PDTSee soap note [id number].Electronically sign ed by Caro Flores MD at 12/07/2015 8:56 AM PDTCaro Flores MD - 8:56 AM PDT [facility] ORTHOPEDIC SURGERY [address] [place] [address] OFFICE NOTE CARO FLORES MD Patient: ALINE WHITLEY Admitting: MR #: [id number] LOC: PT TYPE: Adm Date: 12/07/2015 : 1955 Aline returns today for a followup of her right carpal tunnel release performed on , a little over a month and a half ago. Today, she notes that her symptoms have largely r esolved. She still has intermittent numbness in the tip of her right thumb, but otherwise notes that she is much improved as compared to her preoperative status. She also still zhong s some tenderness in the incision site when pushing herself up from a chair, but otherwise is pain-free. EXAM: The patient's right hand is examined. Incision is well healed and is barely visibl e. She has full range of motion of the fingers with good civil designer strength. ADVICE: Overall, Aline has done well. We have reassured her that the incisional pain should continue to improve and it should resolve in time. I would expect her intermittent thumb numbness to resolve as well. We will plan see her back in the future as needed. CARO FLORES MD Dictated by CARO FLORES MD 12/07/2015 08:56:16 Transcribed on 12/08/2015 09:24:15 by damian job# [id number] Confirmation #: [id number] cc: LANA MELCHOR DO documented in this encounter Plan of Treatment Not on filedocumented as of this encounter Visit Diagnoses + + | Diagnosis | + + | S/P orthopedic surgery, follow-up exam - Primary Follow-up examination, following | | other surgery | + + documented in this encounter
--- OUTSIDE RECORDS SUMMARY | ~2019-03-21 | XMS | Encounter Summary ---
Demographics + + + | Address | [address] | | | [place] [address] | + + + | Home Phone | | + + + | Preferred Language | Unknown | + + + | Marital Status | | + + + | Episcopal Affiliation | Unknown | + + + | Race | Unknown | + + + | Ethnic Group | Unknown | + + + Author + + + | Author | [facility] | | | and [place] | + + + | Organization | [facility] | | | and [...] Team Providers + +------+ + | Care Bereavement Coordinator Name | Role | Phone | [...] | | Pulmonology | (dyspnea on | [address] | [address] | | | | | exertion) | [place] | [place], | | | | | Procedures | WAY | [place] [address] | | | | | F/U | [place], | Phone: | | | | | | [place] [address] | [phone] | | | | | | Phone: | Fax: | | | | | | [phone] | [phone] | | | | | | Fax: | | | | | | | [phone] | | +--------+--------+ + + + + Encounter Details +--------+---------+ + + + | Date | Type | Department | Care Team | Description | +--------+---------+ + + + | 02/28/ | Office | [facility] | Duncan Bass, | Mild intermittent | | 2017 | Visit | PULMONARY [address] | MD [address] | asthma without | | | | [place], | [place], [place] | complication | | | | [place] [address] | [address] | | | | | [phone] | | | +--------+---------+ + + + [...] more than every 4 hours, contact your [facility] or seek immediate medical attention. [...] not already have one, talk to your [facility] provider about developing a personalized "Asthma Action [...] turning ching or blue Date Last Reviewed: 04/01/201519990460-6416 [employer]. [address] [place] [address]. All righ ts reserved. This information is [...]
--- OUTSIDE RECORDS SUMMARY | ~2019-03-21 | XMS | Encounter Summary ---
Demographics + + + | Address | [address] | | | [place] [address] | + + + | Home Phone | | + + + | Preferred Language | Unknown | + + + | Marital Status | | + + + | Jew Affiliation | Unknown | + + + | Race | Unknown | + + + | Ethnic Group | Unknown | + + + Author + + + | Author | [facility]ated Within [facility] | | | and [place] | + + + | Organization | Located Within [facility] | | | and [place] [...] Team Providers + +------+ + | Care Tree Thinner Name | Role | Phone | + +------+ + PCP | Unavailable | + +------+ + Encounter Details +--------+ + + + + | Date | Type | Department | Care Team | Description | +--------+ + + + + | 02/14/ | Imaging | [facility] | Provider, | | | 2018 | Exam | [facility] | [facility] [address] | | | | | IMAGING | Aniya JAMES | | | | | [phone] | [place] [id number] | | +--------+ + + + + [...]
--- OUTSIDE RECORDS SUMMARY | ~2019-03-21 | XMS | Encounter Summary ---
Demographics + + + | Address | [address] | | | [place] [address] | + + + | Home Phone [...] Organization | [facility] | | [...] Team Providers + +------+ + | Care Headlight Assembler Name | Role | Phone | [...] + + | 01/13/ | Emergency | [facility] | Ronald Kasper MD | Other ascites | | 2019 | | MED CTR EMERGENCY | [address] | (Primary Dx); | | | | CENTER [address] | [place], [place] | Abdominal pain, | | | | [place] | [address] | unspecified | | | | [address] | | abdominal location | | | | [phone] | | | +--------+ + + + [...] phone call by then. Follow up with [facility] provider as needed. Do not drink or drive while on the pain medication. AttachmentsThe following attachments cannot be sent through Care Everywhere.Ascites (Englis h)Acetaminophen; Hydrocodone tablets or capsules (Arabic)documented in this encounter Medications at Time of [...] | | | N: | | | [id number] | | | [id number] | | | riteri | | | [...] | | | [facility]. | | | Mission | | | y | | | [...] | | | St. | | | Mission | | | y | | | [...] | | | St. | | | Mission | | | y | | | [...] | | | St. | | | Mission | | | y | | | [...] | | | St. | | | Mission | | | y H. | | | [place] | | | [place] | | | Emerge | | | ncy | | | Chief | | | Compla | | | int: | | | SHAKY | | | Sep | | | 1, | | | 2019 | | | [facility] | | | y H. | | [...] | | | St. | | | Mission | | | y H. | | [...] | | | St. | | | Mission | | | y H. | | [...] | | | St. | | | Mission | | | y H. | | [...] | | | St. | | | Mission | | | y H. | | [...] | | | St. | | | Mission | | | y H. | | [...] | | | St. | | | Mission | | | y H. | | [...] | | | St. | | | Mission | | | y H. | | [...] | | | St. | | | Mission | | | y H. | | [...] | | | 2018 | | | [place] | | | | | | Health [...] | | | St. | | | Mission | | | y H. | | [...] MD | | | | | | Resistor Winder | | | al | | | [...] | | | N, | | | HAMMER HEATER-C | | | Nurse | | | [...] | | | [id number] | | | [id number] | | | 09 | | | [...] [address] | [place] | [phone] | | [facility] | | [address] | | | - LABORATORY | | [...] + | Performing | Address | City/State/[facility] Cent[facility] | Phone Number | | Organization | | | | + + + + + | [facility]AR. | [address] | [place] | [phone] | | [facility] | | [address] | | | - LABORATORY | | [...] + | [facility] | [address] | [place] | [phone] | | [facility] | | [address] | | | - LABORATORY | | [...] | | | | | mmol/L | [facility] | | | | | | MEDICAL [...] mL/min/1.73m2 | [facility] | | | [place] | RATE,ESTIMATED | | MEDICAL | | | | mL/min/1.26r4Fewk than | | CENTER - | | [...] [address] | [place] | [phone] | | [facility] | | [address] | | | - LABORATORY | | [...] [address] | [place] | [phone] | | [facility] | | [address] | | | - LABORATORY | | [...] | | | | | Patient Address: [address] [place] [address] Rd | | | | | | | [address], [place] [address], | | | | | | + + + + +------+------+ +---+---+ | | | +---+---+ documented in this encounter
--- OUTSIDE RECORDS SUMMARY | ~2019-03-21 | XMS | Encounter Summary ---
Demographics + + + | Address | [address] | | | [place] [address] | + + + | Home Phone [...] + | Organization | [facility] | | | and [place] [...] Team Providers + +------+ + | Care Energy Efficiency Engineer Name | Role | Phone | [...] | | | | | tounge/yello | [address] | | | | | w | [place] | [place] [address] | | | | | hawk/quaempt | WAY | [place], | | | | | s/ | [place], | [place] [address] | | | | | [place] | [place] [address] | Phone: | | | | | faxing auth | Phone: | [phone] | | | | | Procedures | [phone] | Fax: | | | | | OFFICE | Fax: | [phone] | | | | | VISIT | [phone] | | | | | | REGULAR [...] | of tongue | | | | [place], [place] | [place] [address] | | | | | [address] | [phone] | | | | | [phone] | | | +--------+---------+ + + + [...] - 03/09/2015 11:32 AM PST [facility] [place] OT[facility] [address] [facility] [address] OFFICE NOTE MORGAN WATERS MD Patient: LESLYE WHITLEY Admitting: MR #: [id number] LOC: PT TYPE: Adm Date: 03/09/2015 : [...] of probable thrush. 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 | | | GREEK | RATE,ESTIMATED | | MEDICAL | | | | mL/min/1.91u8Kepk than | | CENTER - | | [...] [address] | [place] | [phone] | | [facility] | | [address] | | | - LABORATORY | | [...] + | [facility] | [address] | [place] | [phone] | | [facility] | | [address] | | | - LABORATORY | | [...] + | [facility] | [address] | [place] | [phone] | | [facility] | | [address] | | | - LABORATORY | | | | + + + + + documented in this encounter Visit Diagnoses + + | Diagnosis | + + | Glossitis - Primary | + + | Benign neoplasm of tongue | + + documented in this encounter
--- OUTSIDE RECORDS SUMMARY | ~2019-03-21 | XMS | Encounter Summary ---
Demographics + + + | Address | [address] | | | [place] [address] | + + + | Home Phone | | + + + | Preferred Language | Unknown | + + + | Marital Status | | + + + | Church Affiliation | Unknown | + + + | Race | Unknown | + + + | Ethnic Group | Unknown | + + + Author + + + | Author | [facility] | | | and [place] | + + + | Organization | [facility] | | | and [place] | [...] Team Providers + +------+ + | Care Lye Peel Operator Name | Role | Phone | + +------+ + PCP | Unavailable | + +------+ + Encounter Details +--------+ + + + + | Date | Type | Department | Care Team | Description | +--------+ + + + + | 03/09/ | Hospital | [facility] | Morgan Woo MD | Benign neoplasm of | | 2015 | Encounter | MED CTR LABORATORY | [address] [place] | tongue | | | | [address] [place] | [address] [place], | | | | | [place], [place] | [place] [address] | | | | | [address] | [phone] | | | | | [phone] | | | +--------+ + + + [...] | mL/min/1.73m2 | [facility] | | | KAZ[place]H | RATE,ESTIMATED | | MEDICAL | | | | mL/min/1.49m2Tvbg than | | CENTER - | | [...] + | [facility] | [address] | [place], [place] | [phone] | | [facility] | | [address] | | | - LABORATORY | | [...] + | [facility] | [address] | [place] | [phone] | | [facility] | | [address] | | | - LABORATORY | | [...] [address] | [place] | [phone] | | [facility] | | [address] | | | - LABORATORY | | | | + + + + + documented in this encounter Visit Diagnoses + + | Diagnosis | + + | Benign neoplasm of tongue | + + documented in this encounter"
--- OUTSIDE RECORDS SUMMARY | ~2019-03-21 | XMS | Encounter Summary ---
Demographics + + + | Address | [address] | | | [place] [address] | + + + | Home Phone | | + + + | Preferred Language | Unknown | + + + | Marital Status | | + + + | Faith Affiliation | Unknown | + + + | Race | Unknown | + + + | Ethnic Group | Unknown | + + + Author + + + | Author | [facility] | | | and [place] | + + + | Organization | [facility] [...] Team Providers + +------+ + | Care Office Director Name | Role | Phone | [...] | | | Pulmonology | intermittent | [address] | [address] | | | | | asthma, | [place] | [place], | | | | | uncomplicate | WAY | [place] [address] | | | | | d | [place], | Phone: | | | | | Procedures | [place] [address] | [phone] | | | | | F/U 08/01> | Phone: | Fax: | | | | | DOS 09/22> | [phone] | [phone] | | | | | PEND UPDATED | Fax: | | | | | | AUTH FROM | [phone] | | | | | | [facility] | | | +--------+--------+ + + + + Encounter Details +--------+---------+ + + + | Date | Type | Department | Care Team | Description | +--------+---------+ + + + | 09/22/ | Office | [facility] [place] | Duncan Bass, | Mild persistent | | 2018 | Visit | PULMONARY [address] | asthma with acute | | | | [place], | [place] | exacerbation | | | | [place] [address] | [address] | (Primary Dx) | | | | [phone] | | | +--------+---------+ + + + [...] Osteoporosis Pneumonia Pneumonia 07/30/2017 admitted overnight at [facility] Sensorineural hearing loss Thrombocytopenia (HCC) Vitamin [...]
--- OUTSIDE RECORDS SUMMARY | ~2019-03-21 | XMS | Encounter Summary ---
Demographics + + + | Address | [address] | | | [place] [address] | + + + | Home Phone | | + + + | Preferred Language | Unknown | + + + | Marital Status | | + + + | Restoration Affiliation | Unknown | + + + | Race | Unknown | + + + | Ethnic Group | Unknown | + + + Author + + + | Author | [facility] | | | and [place] | + + + | Organization | [facility] [...] Team Providers + +------+ + | Care Marketing Manager Health Communications Name | Role | Phone | + [...] + + | 11/07/ | Emergency | [facility] | Velia Smith, | Inflammatory | | 2018 | | MED CTR EMERGENCY | [address] | arthritis (Primary | | | | CENTER [address] | [facility] [place] | Dx); Acute pain of | | | | [place] | [place] [address] | right knee | | | | [address] | [phone] | | | | | [phone] | | | | | | | Kermit Silverio MD | | | | | | [address] | | | | | | [place] | | | | | | [address] | | | | | | | [...] Care Everywhere.Knee Pain (Engl orion)Osteoarthritis, What Is (Equatorial Guinean)documented in this encounter Medications at Time of [...] [address] | [place] | [phone] | | [facility] | | [address] | | | - LABORATORY | | [...] [address] | [place] | [phone] | | [facility] | | [address] | | | - LABORATORY | | [...] [address] | [place] | [phone] | | [facility] | | [address] | | | - LABORATORY | | [...] | % | [facility] | | | Macro/Menard | | | [facility] | | [...] + | [facility] | [address] | [place], [place] | [phone] | | [facility] | | [address] | | | - LABORATORY | | [...] | to the ordering provider by the histologist technologist immediately | | | following the [...] the ordering provider by the | | histologist technologist immediately following the exam. | | [...] [address] | [place] | [phone] | | [facility] | | [address] | | | - LABORATORY | | [...] + | [facility] | [address] | [place] | [phone] | | [facility] | | [address] | | | - LABORATORY | | [...] + | [facility] | [address] | [place] | [phone] | | [facility] | | [address] | | | - LABORATORY | | [...] ST. | [address] | [place] | [phone] | | [facility] | | [address] | | | - LABORATORY | | [...] + | [facility] | [address] | [place] | [phone] | | [facility] | | [address] | | | - LABORATORY | | [...] + | [facility] | [address] | [place] | [phone] | | [facility] | | [address] | | | - LABORATORY | | [...] mL/min/1.73m2 | [facility] | | | [place] | RATE,ESTIMATED | | MEDICAL | | | | mL/min/1.52n0Kfbk than | | CENTER - | | [...] [address] | [place] | [phone] | | [facility] | | [address] | | | - LABORATORY | | [...] [address] | [place] | [phone] | | [facility] | | [address] | | | - LABORATORY | | [...]
--- OUTSIDE RECORDS SUMMARY | ~2019-03-21 | XMS | Encounter Summary ---
Demographics + + + | Address | [address] | | | [place] [address] | + + + | Home Phone [...] [facility] | | | and [place] | + + + | Organization | [facility] | | [...] Team Providers + +------+ + | Care Military Technology Manager Name | Role | Phone | + +------+ + PCP | Unavailable | + +------+ + Encounter Details +--------+ + + + + | Date | Type | Department | Care Team | Description | +--------+ + + + + | 08/14/ | Hospital | [facility] | Russ | VIR HEP NEC W/O COMA | | 2003 | Encounter | [facility] | MD Uma [address] | W HEP C LADI ([facility]) | | | | CLINICAL DECISION | Kaitlynn [place] | | | | | [address] | [place] [address] | | | | | [place], [place] | [phone] | | | | | [address] | | | | | | [phone] | | | +--------+ + + + [...]
--- OUTSIDE RECORDS SUMMARY | ~2019-03-21 | XMS | Encounter Summary ---
Demographics + + + | Address | [address] | | | [place] [address] | + + + | Home Phone [...] Organization | [facility] | | | and [place] [...] Providers + +------+ + | Care Medical Records Receptionist Name | Role | Phone | + [...] + + | 04/25/ | Emergency | [facility] | Reza Pittman, | Paresthesias in | | 2015 | | MED CTR EMERGENCY | MD [address] | right hand (Primary | | | | CENTER [address] | [place] | Dx); Acute wrist | | | | [place] | [address] | pain, right | | | | [address] | | | | | | [phone] | | | +--------+ + + + [...] cannot be sent through Care Everywhere.PARAESTHESIAS ( TOGOLESE)documented in this encounter Medications at Time of [...]
--- OUTSIDE RECORDS SUMMARY | ~2019-03-21 | XMS | Encounter Summary ---
Demographics + + + | Address | [address] | | | [place] [address] | + + + | Home Phone [...] Organization | [facility] | | | and [...] Team Providers + +------+ + | Care Cage Tender Name | Role | Phone | + +------+ + PCP | Unavailable | + +------+ + Encounter Details +--------+---------+ + + + | Date | Type | Department | Care Team | Description | +--------+---------+ + + + | 10/25/ | Office | [facility] | Caro Flores | S/P orthopedic | | 2016 | Visit | ORTHOPEDIC SURGERY | MD Mehul [address] [place] [address] | surgery, follow-up | | | | [address] [facility] | [place] | exam (Primary Dx) | | | | [place] | [address] | | | | | [address] | | | | | | [phone] | | | +--------+---------+ + + + [...] - 10/26/2015 6:08 PM Keiko mathur note [id number].Electronically sign ed by Caro Flores MD at 10/26/2015 6:08 PM Caro Gamez MD - 06/27/201 6 6:07 PM PDT [facility] [place] [facility] [address] [place] [address] OFFICE NOTE CARO FLORES MD Patient: ALINE WHITLEY Admitting: MR #: [id number] LOC: PT TYPE: Adm Date: 10/26/2015 : [...] Transcribed on 10/27/2015 17:36:43 by eri job# [id number] Confirmation #: [id number] cc: LANA MELCOHR DO documented in this encounter Plan of Treatment Not on filedocumented as of this encounter Visit Diagnoses + + | Diagnosis | + + | S/P orthopedic surgery, follow-up exam - Primary Follow-up examination, following | | other surgery | + + documented in this encounter"
--- OUTSIDE RECORDS SUMMARY | ~2019-03-21 | XMS | Encounter Summary ---
Demographics + + + | Address | [address] | | | [place] [address] | + + + | Home Phone | | + + + | Preferred Language | Unknown | + + + | Marital Status | | + + + | Yazidism Affiliation | Unknown | + + + | Race | Unknown | + + + | Ethnic Group | Unknown | + + + Author + + + | Author | [facility] | | | and [place] | + + + | Organization | [facility] | | | [...] Team Providers + +------+ + | Care Regional Clinical Director Name | Role | Phone | + +------+ + PCP | Unavailable | + +------+ + Encounter Details +--------+ + + + + | Date | Type | Department | Care Team | Description | +--------+ + + + + | 02/13/ | Imaging | [facility] | Provider, | | | 2018 | Exam | MED CTR EXTERNAL | MD Sosa [address] | | | | | IMAGING | [place] | | | | | [phone] | [place] [address] | | +--------+ + + + + [...]
--- OUTSIDE RECORDS SUMMARY | ~2019-03-21 | XMS | Encounter Summary ---
Demographics + + + | Address | [address] | | | [place] [address] | + + + | Home Phone | | + + + | Preferred Language | Unknown | + + + | Marital Status | | + + + | Hindu Affiliation | Unknown | + + + | Race | Unknown | + + + | Ethnic Group | Unknown | + + + Author + + + | Author | [facility] | | | and [place] | + + + | Organization | [facility] | | | and [...] Team Providers + +------+ + | Care Oil Field Laborer Name | Role | Phone | + [...] + | 07/19/ | Refill | [facility] [place] | Ramon Stokes | Appointment | | 2015 | | ORTHOPEDIC SURGERY | MD [address]ul [address] | | | | | [address] [facility] | [place] | | | | | [place] | [address] | | | | | [address] | | | | | | [phone] | | | +--------+--------+ + + + [...]
--- OUTSIDE RECORDS SUMMARY | ~2019-03-21 | XMS | Encounter Summary ---
Demographics + + + | Address | [address] | | | [place] [address] | + + + | Home Phone | | + + + | Preferred Language | Unknown | + + + | Marital Status | | + + + | Alevism Affiliation | Unknown | + + + | Race | Unknown | + + + | Ethnic Group | Unknown | + + + Author + + + | Author | [facility] | | | and [place] | + + + | Organization | [facility] | | | and [place] | [...] Team Providers + +------+ + | Care Deputy United States Marshal Name | Role | Phone | + [...] | | | | | | | [place] REVISE | | | | | | [...] + + + + | 10/13/ | Hospital | [facility] | Ramon Stokes | Carpal tunnel | | 2016 | Encounter | MED CTR OR INTRA OP | MD Mehul [address] [place] [address] | syndrome on right | | | | [address] | [place] | (Primary Dx); | | | | [place] | [address] | Hepatic cirrhosis, | | | | [address] | | unspecified hepatic | | | | [phone] | | cirrhosis type | | | [...] mg of acetaminophen (Tylenol) per day. Hydrocodone-acetaminophen ([place] ) and Oxycodone-acetaminophen (Percocet) have 325 mg [...] hand or fingers Fever over 100.4F (38C) 6749-8037 [employer]. [address] [place] [address]. All righ ts reserved. This information is [...] ST. | [address] | [place], [place] | [phone] | | [facility] | | [address] | | | - LABORATORY | | | | + + + + + Raul MCGRAW (10/14/2015 7:04 AM PDT) + + + + + + | Component | Value | Ref Range | Performed | Pathologist | | | | | At | Signature | + + + + + + | Prothrombin | 15.1 (H) | 11.3 - 13.9 | [facility] | | | Time | | seconds | [facility] | | | | | | MEDICAL | | | | | | CENTER - | | | | | | LABORATORY | | + + + + + + | INR | 1.13 (H)Comment: Usual | 0.90 - 1.10 | [facility] | | | | Oral Anticoagulation | | [facility] | | | | Range: 2.0 - [...] [address] | [place] | [phone] | | [facility] | | [address] | | | - LABORATORY | | [...] [address] | [place] | [phone] | | [facility] | | [address] | | | - LABORATORY | | [...] 12 | 7 - 18 mg/dL | [facility] | | | | | | [facility] | | | | | | MEDICAL | | | | | | CENTER - | | | | | | LABORATORY | | + + + + + + | Creatinine | 0.91 | 0.60 - 1.30 | [facility] | | | | | mg/dL | [facility] | | | | | | MEDICAL | | | | | | CENTER - | | | | | | LABORATORY | | + + + + + + | eGFR if not | >60Comment: GLOMERULAR | >=60 | [place] | | | | FILTRATION | mL/min/1.73m2 | [facility] | | | BELAR[place]IAN | RATE,ESTIMATED | | MEDICAL | | | | mL/min/1.56n4Wtmr than | | CENTER - | | [...] + | [facility] | [address] | [place] | [phone] | | [facility] | | [address] | | | - LABORATORY | | [...] | | | Count | | | [facility] | | [...] [address] | [place] | [phone] | | [facility] | | [address] | | | - LABORATORY | | [...] | | | | | g/dL | [facility] | | | | [...] [address] | [place] | [phone] | | [facility] | | [address] | | | - LABORATORY | | [...]
--- OUTSIDE RECORDS SUMMARY | ~2019-03-21 | XMS | Encounter Summary ---
Demographics + + + | Address | [address] | | | [place] [address] | + + + | Home Phone | | + + + | Preferred Language | Unknown | + + + | Marital Status | | + + + | Cheondoism Affiliation | Unknown | + + + | Race | Unknown | + + + | Ethnic Group | Unknown | + + + Author + + + | Author | [facility] | | | and [place] | + + + | Organization | [facility] | | | and [place] [...] Team Providers + +------+ + | Care Half Backer Name | Role | Phone | + [...] | | | Pulmonology | intermittent | [address] | [address] | | | | | asthma, | [place] | [place], | | | | | uncomplicate | WAY | [place] [address] | | | | | d | [place], | Phone: | | | | | Procedures | [place] [address] | [phone] | | | | | FU | Phone: | Fax: | | | | | | [phone] | [phone] | | | | | | Fax: | | | | | | | [phone] | | +--------+--------+ + + + + Encounter Details +--------+---------+ + + + | Date | Type | Department | Care Team | Description | +--------+---------+ + + + | 10/19/ | Office | [facility] | Duncan Bass, | Mild persistent | | 2018 | Visit | PULMONARY [address] | asthma without | | | | [place], | [place], [place] | complication | | | | [place] [address] | [address] | (Primary Dx); Need | | | | [phone] | | for pneumococcal | | | [...] more than every 4 hours, contact your [facility] provider or seek immediate medical attention. [...] don't already have one, talk to your [facility] are provider about developing your [...] turning ching or blue Date Last Reviewed: 08/29/201619995594-9072 [employer]. [address] [place] [address]. All righ ts reserved. This information is [...] feet at their own pace on level [facility] nd before becoming symptomatic. They are not [...] Pneumonia Pneumonia 07/30/2017 admitted overnight at [facility] Sensorineural hearing loss Thrombocytopenia (HCC) [...]
--- OUTSIDE RECORDS SUMMARY | ~2019-03-21 | XMS | Encounter Summary ---
Demographics + + + | Address | [address] | | | [place] [address] | + + + | Home Phone [...] | Organization | [facility] | | | and [place] [...] Team Providers + +------+ + | Care Applied Statistician Name | Role | Phone | + [...] + + | 08/13/ | Emergency | [facility] | Jeffrey Augustin | Closed fracture of | | 2018 | | MED CTR EMERGENCY | MD Anjum [address] | multiple ribs of | | | | CENTER [address] | [address] [place] | left side, initial | | | | [place] | [place] [address] | encounter (Primary | | | | [address] | [phone] | Dx); Acute pain; | | | | [phone] | | Fall, initial | | | [...] report was | | | sent by Snapchat with no significant discrepancy. | | | [...] | A preliminary report was sent by Snapchat with no significant | | discrepancy. | [...] | | | | | | [employer] | | | | | [...] ST. | [address] | [place] | [phone] | | [facility] | | [address] | | | - LABORATORY | | [...] + | [facility] | [address] | [place] | [phone] | | [facility] | | [address] | | | - LABORATORY | | [...] mL/min/1.73m2 | [facility] | | | [place] | RATE,ESTIMATED | | MEDICAL | | | | mL/min/1.56m0Rwqk than | | CENTER - | | [...] + | [facility] | [address] | [place], [place] | [phone] | | [facility] | | [address] | | | - LABORATORY | | [...] + | [facility] | [address] | [place] | [phone] | | [facility] | | [address] | | | - LABORATORY | | [...] | | | | JOSELUIS PINON MD ([id number]) | | | | | | on [...]
--- OUTSIDE RECORDS SUMMARY | ~2019-03-21 | XMS | Encounter Summary ---
Demographics + + + | Address | [address] | | | [place] [address] | + + + | Home Phone [...] + | Organization | [facility] | | | and [place] [...] Team Providers + +------+ + | Care Psych Coordinator Name | Role | Phone | [...] | | | | | tounge/yello | [address] | [address] | | | | | w | [place] | [address] | | | | | hawk/quaempt | WAY | [place], | | | | | s/ | [place], | [place] [address] | | | | | [place] | [place] [address] | Phone: | | | | | faxing auth | Phone: | [phone] | | | | | Procedures | [phone] | Fax: | | | | | OFFICE | Fax: | [phone] | | | | | VISIT | [phone] | | | | | | REGULAR [...] | of tongue | | | | [place], [place] | [place] [address] | | | | | [address] | [phone] | | | | | [phone] | | | +--------+---------+ + + + [...] - 03/09/2015 11:32 AM PST [facility] [place] OT[facility] [address] [facility] [address] OFFICE NOTE MORGAN WATERS MD Patient: LESLYE WHITLEY Admitting: MR #: [id number] LOC: PT TYPE: Adm Date: 03/09/2015 : [...] of probable thrush. 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 job# [id number] Confirmation #: [id number] cc: MORGAN MELCHOR MD ar sh, Morgan Florez MD - 03/09/2015 11:28 AM PSTSee dictation # [id number] signed by Morgan Waters MD at 03/09/2015 [...] mL/min/1.73m2 | [facility] | | | B[place] | RATE,ESTIMATED | | MEDICAL | | | | mL/min/1.13d6Tntz than | | CENTER - | | [...] [address] | [place] | [phone] | | [facility] | | [address] | | | - LABORATORY | | [...] + | [facility] | [address] | [place] | [phone] | | [facility] | | [address] | | | - LABORATORY | | [...] + | [facility] | [address] | [place] | [phone] | | [facility] | | [address] | | | - LABORATORY | | | | + + + + + documented in this encounter Visit Diagnoses + + | Diagnosis | + + | Glossitis - Primary | + + | Benign neoplasm of tongue | + + documented in this encounter
--- OUTSIDE RECORDS SUMMARY | ~2019-03-21 | XMS | Encounter Summary ---
Demographics + + + | Address | [address] | | | [place] [address] | + + + | Home Phone [...] | Organization | [facility] | [...] Team Providers + +------+ + | Care Furnace Helper Name | Role | Phone | + +------+ + PCP | Unavailable | + +------+ + Encounter Details +--------+ + + + + | Date | Type | Department | Care Team | Description | +--------+ + + + + | 01/26/ | Imaging | [facility] | Provider, | | | 2017 | Exam | MED CTR EXTERNAL | MD Sosa [address] | | | | | IMAGING | [place] | | | | | [phone] | [place] [address] | | +--------+ + + + + [...] +--------+ + + + | CT CHEST W CONTRAST | Routin | 12/14/2012 | | Results for this | | | e | 8:20 AM | | procedure are in the | | | | PDT | | results section. | + +--------+ + + + documented in this encounter Results CT Chest w Contrast (12/14/2012 8:20 AM PDT) + + | Specimen | + + | | + + + + + | Narrative | Performed At | + + + | External films | [facility] | | for comparison only - no result from [place]. | | + + + + +---------+ + + | Performing | Address | City/State/Zipcode | Phone Number | | Organization | | | | + +---------+ + + | [facility] | | | | + +---------+ + + documented in this encounter Visit Diagnoses Not on filedocumented in this encounter"
--- OUTSIDE RECORDS SUMMARY | ~2019-03-21 | XMS | Encounter Summary ---
Demographics + + + | Address | [address] | | | [place] [address] | + + + | Home Phone [...] | [facility] | | | and [place] [...] Team Providers + +------+ + | Care Overlock Collar Setter Name | Role | Phone | + +------+ + PCP | Unavailable | + +------+ + Encounter Details +--------+ + + + + | Date | Type | Department | Care Team | Description | +--------+ + + + + | 02/13/ | Imaging | [facility] | Provider, | | | 2018 | Exam | MED CTR EXTERNAL | MD Sosa [address] | | | | | IMAGING | [place] | | | | | [phone] | [place] [address] | | +--------+ + + + + [...]
--- OUTSIDE RECORDS SUMMARY | ~2019-03-21 | XMS | Encounter Summary ---
Demographics + + + | Address | [address] | | | [place] [address] | + + + | Home Phone [...] | Author | [facility] | | | and [place] | + + + | Organization | [facility] | [...] Team Providers + +------+ + | Care Gas Combustion Engineer Name | Role | Phone | + +------+ + PCP | Unavailable | + +------+ + Encounter Details +--------+ + + + + | Date | Type | Department | Care Team | Description | +--------+ + + + + | 02/14/ | Imaging | [facility] | Provider, | | | 2018 | Exam | MED CTR EXTERNAL | MD Sosa [address] | | | | | IMAGING | [place] | | | | | [phone] | [place] [address] | | +--------+ + + + + [...]
--- OUTSIDE RECORDS SUMMARY | ~2019-03-21 | XMS | Encounter Summary ---
Demographics + + + | Address | [address] | | | [place] [address] | + + + | Home Phone | | + + + | Preferred Language | Unknown | + + + | Marital Status | | + + + | Cheondoism Affiliation | Unknown | + + + | Race | Unknown | + + + | Ethnic Group | Unknown | + + + Author + + + | Author | [facility] | | | and [place] | + + + | Organization | [facility], [...] Team Providers + +------+ + | Care Credentialing Coordinator Name | Role | Phone | + +------+ + PCP | Unavailable | + +------+ + Encounter Details +--------+ + + + + | Date | Type | Department | Care Team | Description | +--------+ + + + + | 11/26/ | Orders Only | [facility] | Provider, | | | 2018 | | SYSTEM GENERIC OP | MD Sosa [address] | | | | | CONVERSION [address] | [place] | | | | | [address] [place] | [place] [address] | | | | | [address] | | | | | | [phone] | | | +--------+ + + + [...]
--- OUTSIDE RECORDS SUMMARY | ~2019-03-21 | XMS | Encounter Summary ---
Demographics + + + | Address | [address] | | | [place] [address] | + + + | Home Phone [...] Organization | [facility] | | | and [...] Team Providers + +------+ + | Care Electronics Engineering Technician Name | Role | Phone | + +------+ + PCP | Unavailable | + +------+ + Encounter Details +--------+ + + + + | Date | Type | Department | Care Team | Description | +--------+ + + + + | 06/08/ | Hospital | [facility] | Morgan Woo MD | | | 2011 | Encounter | MED CTR XRAY [address] | [address] [place] | | | | | [place] | [address] [place], | | | | | [place] [address] | [place] [address] | | | | | [phone] | [phone] | | | | | | | [...] Performed At | + + + | [facility] Diagnostic Imaging Department | [facility] | | [address] | [facility] | | UNENHANCED CT PARANASAL SINUSES: | [...] Transcribed | | | Date/Time: 06/08/2011 14:15 Platform Consultant: | | | <Electronically Signed by Neftaly Samuel MD> 06/08/111 | | + + + + + | Procedure Note | + + | Vitaly, Rad Conversion - 06/07/2013 4:[address] [facility] | | Diagnostic Imaging Department | | [address] | | | | | | [...] | Transcribed Date/Time: 06/08/2011 14:15 | | Platform Consultant: NADIA | | <Electronically Signed by Neftaly [...]
--- OUTSIDE RECORDS SUMMARY | ~2019-03-21 | XMS | Encounter Summary ---
Demographics + + + | Address | [address] | | | [place] [address] | + + + | Home Phone [...] | [facility] | | | and [place] [...] Providers + +------+ + | Care Field Appraiser Name | Role | Phone | + [...] | | | | | Procedures | [address] | [address] | | | | | NEW PT | [place] | [place], | | | | | CONSULT | [facility] | [place] [address] | | | | | | [place], | Phone: | | | | | | [place] [address] | [phone] | | | | | | Phone: | Fax: | | | | | | [phone] | [phone] | | | | | | Fax: | | | | | | | [phone] | | +--------+--------+ + + + + [...] | (Primary Dx); | | | | [place], | [place], [place] | Asthma, unspecified | | | | [place] [address] | [address] | asthma severity, | | | | [phone] | | unspecified whether | | | [...] ou have any questions. Talk to your cook specialty regarding the use of this medicine in children. Special care may be needed. What side effects may I notice from receiving this medicine? Side effects that you should report to your doctor or health career coach as soon as p ossible: allergic reactions [...] attention (report to your doctor or health career coach if they continue or are bothersome): cough [...] this medicine? Tell your doctor or health career coach if your symptoms do not improve. Do [...] [facility] They have not completed pulmonary rehabilitation in [...] Tunnel Release; Surgeon: Ramon Stokes MD; Location: [facility] MAIN OR CHOLECYSTECTOMY HYSTERECTOMY endometriosis SINUS SURGERY [...]
--- OUTSIDE RECORDS SUMMARY | ~2019-03-21 | XMS | Encounter Summary ---
Demographics + + + | Address | [address] | | | [place] [address] | + + + | Home Phone | | + + + | Preferred Language | Unknown | + + + | Marital Status | | + + + | Zoroastrianism Affiliation | Unknown | + + + | Race | Unknown | + + + | Ethnic Group | Unknown | + + + Author + + + | Author | [facility] | | | and [place] | + + + | Organization | [facility] | [...] Team Providers + +------+ + | Care Crm Specialist Name | Role | Phone | [...] + + | 11/01/ | Emergency | [facility] | Ronald Kasper MD | [facility] | | 2019 | | MED CTR EMERGENCY | [address] | (Primary Dx) | | | | CENTER [address] | [place] | | | | | [place] | [id number] | | | | | [address] | | | | | | [phone] | Reza Pittman, | | | | | | [address] | | | | | | [place] | | | | | | [id number] | | | | | | | [...] - | | | | | | 2019 | | | [...] | | | N: | | | [id number] | | | [id number] | | | riteri | | | [...] | | | St. | | | [place] | | | y | | | [...] | | | St. | | | [place] | | | y | | | [...] | | | St. | | | [place] | | | y | | | [...] | | | St. | | | [place] | | | y | | | [...] | | | St. | | | [place] | | | y H. | | [...] | | | St. | | | [place] | | | y H. | | [...] | | | St. | | | [place] | | | y H. | | [...] | | | St. | | | [place] | | | y H. | | [...] | | | St. | | | [place] | | | y H. | | [...] | | | St. | | | [place] | | | y H. | | [...] | | | St. | | | [place] | | | y H. | | [...] | | | St. | | | [place] | | | y H. | | [...] | | | St. | | | [place] | | | y H. | | [...] | | | St. | | | [place] | | | y H. | | [...] | | | 2018 | | | [place] | | | | | | Health [...] | | | St. | | | [place] | | | y H. | | [...] MD | | | | | | Speech Pathology Supervisor | | | al | | | [...] [address] | [place] | [phone] | | [facility] | | [address] | | | - LABORATORY | | [...] | | Result | | | [facility] | | [...] [address] | [place] | [phone] | | [facility] | | [address] | | | - LABORATORY | | [...] | Source | liver | | [facility] | | | | | | MEDICAL | | | | | | CENTER - | | | | | | LABORATORY | | + + + + + + | BF | Lokesh (A) | Clear | [facility] | | | Appearance | | | [facility] | | | | | | MEDICAL | | | | | | CENTER - | | | | | | LABORATORY | | + + + + + + | BF | 334 (H) | 0 - 150 | [facility] | | | Nucleated | | cells/uL | [facility] | | | cells | | | [...] ST. | [address] | [place] | [phone] | | [facility] | | [address] | | | - LABORATORY | | | | + + + + + Mary Joime INR (11/01/2018 3:10 PM PDT) + + + + + + | Component | Value | Ref Range | Performed | Pathologist | | | | | At | Signature | + + + + + + | Prothrombin | 18.9 (H) | 11.3 - 13.9 | [facility] | | | Time | | seconds | [facility] | | | | | [...] + | [facility] | [address] | [place] | [phone] | | [facility] | | [address] | | | - LABORATORY | | [...] in | 12 - 53 U/L | [facility] | | | | use as of June 27, | | [facility] | | | | 2018. Check reference | | MEDICAL | | [...] ST. | [address] | [place], [place] | [phone] | | [facility] | | [address] | | | - LABORATORY | | [...] 12 | 9 - 23 mg/dL | [facility] | | | | | | [facility] | | | | | | MEDICAL | | | | | | CENTER - | | | | | | LABORATORY | | + + + + + + | Creatinine | 0.87 | 0.55 - 1.02 | [facility] | | | | | mg/dL [...] mL/min/1.73m2 | [facility] | | | RUSSIAN | RATE,ESTIMATED | | MEDICAL | | | | mL/min/1.95x3Yemr than | | CENTER - | | [...] | | | Total | | | [facility] | | [...] [address] | [place] | [phone] | | [facility] | | [address] | | | - LABORATORY | | [...] | | Neutrophils | | K/uL | [facility] | | | | [...] [address] | [place] | [phone] | | [facility] | | [address] | | | - LABORATORY | | [...] | | | | | Intravenous, ONCE, [facility] 11/01/18 at | | PM PDT | | | | | 1620, For 1 dose | | | | | | + +--------+ +------+------+------+ +---+---+ | | | +---+---+ documented in this encounter
--- OUTSIDE RECORDS SUMMARY | ~2019-03-21 | XMS | Encounter Summary ---
Demographics + + + | Address | [address] | | | [place] [address] | + + + | Home Phone | | + + + | Preferred Language | Unknown | + + + | Marital Status | | + + + | Voodoo Affiliation | Unknown | + + + | Race | Unknown | + + + | Ethnic Group | Unknown | + + + Author + + + | Author | [facility] | | | and [place] | + + + | Organization | [facility] [...] Team Providers + +------+ + | Care Translator Name | Role | Phone | + [...] | | | | pain Right | [address] | [address] | | | | | wrist pain | [place] | [address] | | | | | | [place] | [place] | | | | | | [place], | [address] Phone: | | | | | | [place] [address] | [phone] | | | | | | Phone: | Fax: | | | | | | [phone] | [phone] | | | | | | Fax: | | | | | | | [phone] | | +--------+--------+ + + + + Encounter Details +--------+---------+ + + + | Date | Type | Department | Care Team | Description | +--------+---------+ + + + | 10/07/ | Office | [facility] | Quirino Olson | Hepatic cirrhosis, | | 2015 | Visit | ORTHOPEDIC SURGERY | ANN [address] | unspecified hepatic | | | | [address] [facility] | Caio Nunez | cirrhosis type (HCC) | | | | [place], [place] | [place] [address] | (Primary Dx); | | | | [address] | [phone] | Diuretics causing | | | | [phone] | | adverse effect in | | [...]
--- OUTSIDE RECORDS SUMMARY | ~2019-03-21 | XMS | Encounter Summary ---
Demographics + + + | Address | [address] | | | [place] [address] | + + + | Home Phone | | + + + | Preferred Language | Unknown | + + + | Marital Status | | + + + | Religion Affiliation | Unknown | + + + | Race | Unknown | + + + | Ethnic Group | Unknown | + + + Author + + + | Author | [facility] | | | and [place] | + + + | Organization | [facility] | | [...] Team Providers + +------+ + | Care Ice Platform Supervisor Name | Role | Phone | [...] | | | | | IMAGING | [place] | | | | | [phone] | [place] [address] | | +--------+ + + + + [...]
--- OUTSIDE RECORDS SUMMARY | ~2019-03-21 | XMS | Encounter Summary ---
Demographics + + + | Address | [address] | | | [place] [address] | + + + | Home Phone [...] [facility] | | | and [place] [...] Team Providers + +------+ + | Care Water Fabricator Operator Name | Role | Phone | + +------+ + PCP | Unavailable | + +------+ + Encounter Details +--------+---------+ + + + | Date | Type | Department | Care Team | Description | +--------+---------+ + + + | 10/25/ | Office | [facility] | Caro Flores | S/P orthopedic | | 2016 | Visit | ORTHOPEDIC SURGERY | MD Mehul [address] [place] [address] | surgery, follow-up | | | | [address] [facility] | [place] | exam (Primary Dx) | | | | [place] | [address] | | | | | [address] | | | | | | [phone] | | | +--------+---------+ + + + [...] - 10/26/2015 6:08 PM Keiko mathur note [id number].Electronically sign ed by Caro Flores MD at 10/26/2015 6:08 PM Caro Gamez MD - 06/27/201 6 6:07 PM PDT [facility] [place] [facility] [address] [place] [address] OFFICE NOTE CARO FLORES MD Patient: ALINE [place] Admitting: MR #: [id number] LOC: PT TYPE: Adm Date: 10/26/2015 : [...] Transcribed on 10/27/2015 17:36:43 by eri job# [id number] Confirmation #: [id number] cc: LANA MELCHOR DO documented in this encounter Plan of Treatment Not on filedocumented as of this encounter Visit Diagnoses + + | Diagnosis | + + | S/P orthopedic surgery, follow-up exam - Primary Follow-up examination, following | | other surgery | + + documented in this encounter"
--- OUTSIDE RECORDS SUMMARY | ~2019-03-21 | XMS | Encounter Summary ---
Demographics + + + | Address | [address] | | | [place] [address] | + + + | Home Phone | | + + + | Preferred Language | Unknown | + + + | Marital Status | | + + + | Mu-Ism Affiliation | Unknown | + + + | Race | Unknown | + + + | Ethnic Group | Unknown | + + + Author + + + | Author | [facility] | | | and [place] | + + + | Organization | [facility] | | | and [place] [...] Team Providers + +------+ + | Care Tire Repairer Name | Role | Phone | [...] | | | Pulmonology | intermittent | [address] | [address] | | | | | asthma, | [place] | [place], | | | | | uncomplicate | WAY | [place] [address] | | | | | d | [place], | Phone: | | | | | Procedures | [place] [address] | [phone] | | | | | FU | Phone: | Fax: | | | | | | [phone] | [phone] | | | | | | Fax: | | | | | | | [phone] | | +--------+--------+ + + + + Encounter Details +--------+---------+ + + + | Date | Type | Department | Care Team | Description | +--------+---------+ + + + | 10/19/ | Office | [facility] | Duncan Bass, | Mild persistent | | 2018 | Visit | PULMONARY [address] | asthma without | | | | [place], | [place], [place] | complication | | | | [place] [address] | [address] | (Primary Dx); Need | | | | [phone] | | for pneumococcal | | | [...] more than every 4 hours, contact your [facility] provider or seek immediate medical [...] don't already have one, talk to your [facility] about developing your own "Asthma [...] turning ching or blue Date Last Reviewed: 08/29/201619996068-6048 [employer]. [address] [place] [address]. All righ ts reserved. This information is [...] feet at their own pace on level [facility] nd before becoming symptomatic. They are [...] Osteoporosis Pneumonia Pneumonia 07/30/2017 admitted overnight at [facility] Sensorineural hearing loss Thrombocytopenia (HCC) [...]
--- OUTSIDE RECORDS SUMMARY | ~2019-03-21 | XMS | Encounter Summary ---
Demographics + + + | Address | [address] | | | [place] [address] | + + + | Home Phone | | + + + | Preferred Language | Unknown | + + + | Marital Status | | + + + | Muslim Affiliation | Unknown | + + + | Race | Unknown | + + + | Ethnic Group | Unknown | + + + Author + + + | Author | [facility] | | | and [place] | + + + | Organization | [facility] | | | and [place] [...] Providers + +------+ + | Care Tire Rebuilder Name | Role | Phone | + [...] | | | | | | | [place] | | | | | | [...] + + | 10/13/ | Hospital | [facility] | Ramon Stokes | Carpal tunnel | | 2016 | Encounter | MED CTR OR INTRA OP | MD Mehul [address] [place] [address] | syndrome on right | | | | [address] | [place] | (Primary Dx); | | | | [place] | [address] | Hepatic cirrhosis, | | | | [address] | | unspecified hepatic | | | | [phone] | | cirrhosis type | | | [...] mg of acetaminophen (Tylenol) per day. Hydrocodone-acetaminophen ([place] ) and Oxycodone-acetaminophen (Percocet) have 325 mg [...] hand or fingers Fever over 100.4F (38C) 4580-0154 [employer]. [address] [place] [address]. All righ ts reserved. This information is [...] ST. | [address] | [place], [place] | [phone] | | [facility] | | [address] | | | - LABORATORY | | [...] [address] | [place] | [phone] | | [facility] | | [address] | | | - LABORATORY | | [...] [address] | [place] | [phone] | | [facility] | | [address] | | | - LABORATORY | | [...] 12 | 7 - 18 mg/dL | [facility] | | | | | | [facility] | | | | | | MEDICAL | | | | | | CENTER - | | | | | | LABORATORY | | + + + + + + | Creatinine | 0.91 | 0.60 - 1.30 | [facility] | | | | | mg/dL | [facility] | | | | | | MEDICAL | | | | | | CENTER - | | | | | | LABORATORY | | + + + + + + | eGFR if not | >60Comment: GLOMERULAR | >=60 | [place] | | | | FILTRATION | mL/min/1.73m2 | [facility] | | | MONEGASQUE | RATE,ESTIMATED | | MEDICAL | | | | mL/min/1.39w8Wvau than | | CENTER - | | [...] + | [facility] | [address] | [place] | [phone] | | [facility] | | [address] | | | - LABORATORY | | [...] [address] | [place] | [phone] | | [facility] | | [address] | | | - LABORATORY | | [...] [address] | [place] | [phone] | | [facility] | | [address] | | | - LABORATORY | | [...]
--- OUTSIDE RECORDS SUMMARY | ~2019-03-21 | XMS | Encounter Summary ---
Demographics + + + | Address | [address] | | | [place] [address] | + + + | Home Phone [...] | Organization | [facility] | | | and [place] [...] Team Providers + +------+ + | Care Fiberglass Laminator Name | Role | Phone | + +------+ + PCP | Unavailable | + +------+ + Encounter Details +--------+ + + + + | Date | Type | Department | Care Team | Description | +--------+ + + + + | 02/13/ | Imaging | ELENO CHO | Provider, | | | 2018 | Exam | MED CTR EXTERNAL | MD Sosa [address] | | | | | IMAGING | Aniya JAMES | | | | | [phone] | [place] [address] | | +--------+ + + + + [...]
--- OUTSIDE RECORDS SUMMARY | ~2019-03-21 | XMS | Encounter Summary ---
Demographics + + + | Address | [address] | | | [place] [address] | + + + | Home Phone [...] Organization | [facility] | | | [...] Providers + +------+ + | Care Industrial Design Intern Name | Role | Phone | + +------+ + PCP | Unavailable | + +------+ + Encounter Details +--------+ + + + + | Date | Type | Department | Care Team | Description | +--------+ + + + + | 11/10/ | Orders Only | [facility] | Morgan Conner, | | | 2017 | | CONVERSION [address] | [place] [address] | | | | | DEAN LEIGH | [facility] | | | | | [place] | [place] [address] | | | | | [address] | [phone] | | | | | [phone] | | | +--------+ + + + [...] TR Vmax: | | | 2.34 m/s Electronic Imager: [email or web address] Authenticated by: Obie Chávez | | | Report Date/Time: 11-11-2016 06:30:59 | | + + + + ---------+ | Procedure Note | + ---------+ | Jaocbo Haider Conversion - 12/20/2018 6:47 PM PDT [...] cmLVIDd: 3.94 cmLVPWd: 0.91 cmLVOT Area: 3.04 [id number] Diam: 1.96 | | cm%FS: 34.07 %EF(Teich): [...] | | (A-L): 19.69 ml/m2LAAs A2C: 16.50 [id number] A-L A2C: 43.31 mlLALs A2C: 5.34 | | cmLAAs A4C: 16.36 [id number] A-L A4C: 39.12 mlLALs A4C: 5.80 cmRAAs: 10.82 | | [id number] A-L: 22.52 mlRAESV MOD: 21.44 mlRALs: 4.41 cmTAPSE: 2.46 cmAV maxPG: | | 13.17 mmHgAV meanP.06 mmHgAV Vmax: 1.81 m/Stephie Vmean: 1.14 m/Stephie VTI: 33.72 | | cmAVA Vmax: 1.90 cm2AVA (VTI): 2.15 ic0HYBJ Vmax: 0.00 cm2/m2AVAI (VTI): 0.00 | | cm2/m2LVOT maxP.14 mmHgLVOT meanP.74 mmHgLVSI Dopp: 33.37 ml/m2LVSV Dopp: | | 72.76 mlLVOT Vmax: 1.13 m/sLVOT Vmean: 0.78 m/sLVOT VTI: 23.92 cmMV A Jose: | | 0.74 m/sMV DecT: 242.35 msMV E Jose: 0.78 m/sMV E/A Ratio: 1.05MV PHT: 70.28 | | msMVA By PHT: 3.13 qc6Ssgvby e': 0.09 m/sSeptal E/e': 7.91Lateral e': 0.10 | | m/sLateral E/e': 7.70RAP: 5 mmHgRVSP: 27.08 mmHgTR maxP.08 mmHgTR Vmax: | | 2.34 m/s Electronic Imager: ANNETTAuthenticated by: Obie Finklake county memorial hospital - westReport Date/Time: 11-11-2016 | | 06:30:59 IMPRESSION: 1. [...] |TR Vmax: 2.34 m/s | | | |Electronic Imager: [email or web address] | |Authenticated by: Obie Chávez | [...]
--- OUTSIDE RECORDS SUMMARY | ~2019-03-21 | XMS | Encounter Summary ---
Demographics + + + | Address | [address] | | | [place] [address] | + + + | Home Phone [...] | Organization | [facility] | | | and [place] [...] Team Providers + +------+ + | Care Enamel Buffer Name | Role | Phone | + +------+ + PCP | Unavailable | + +------+ + Encounter Details +--------+ + + + + | Date | Type | Department | Care Team | Description | +--------+ + + + + | 08/14/ | Hospital | [facility] | Russ | VIR HEP NEC W/O COMA | | 2003 | Encounter | [facility] | MD Uma [address] | W HEP C LADI ([facility]) | | | | CLINICAL DECISION | Kaitlynn England | | | | | [address] | [place] [address] | | | | | [place], [place] | [phone] | | | | | [address] | | | | | | [phone] | | | +--------+ + + + [...]
--- OUTSIDE RECORDS SUMMARY | ~2019-03-21 | XMS | Encounter Summary ---
Demographics + + + | Address | [address] | | | [place] [address] | + + + | Home Phone | | + + + | Preferred Language | Unknown | + + + | Marital Status | | + + + | Rastafarian Affiliation | Unknown | + + + | Race | Unknown | + + + | Ethnic Group | Unknown | + + + Author + + + | Author | [facility] | | | and [place] | + + + | Organization | [facility] [...] Team Providers + +------+ + | Care Cigar Wrapper Tender Automatic Name | Role | Phone | [...] + + | 12/07/ | Emergency | [facility] | Milagro, | Fecal impaction in | | 2015 | | MED CTR EMERGENCY | Anjum Martinez MD [address] | rectum ([facility]) | | | | CENTER [address] | [address] [place] | (Primary Dx) | | | | [place], [place] | [place] [address] | | | | | [address] | [phone] | | | | | [phone] | | | +--------+ + + + [...] primary provider, below is a list of [facility] group providers currently accepting new patients Primary Care Accepting New Patients 12/07/2014 Dr. Anjum Abraham Family Medicine Scheduling Special interest in geriatrics. Dr. Luigi Tena Family Medicine Scheduling Dr. Dusty Snider Family Medicine Obstetrics Scheduling Full scope family medicine- including obstetrics, pediatrics and adult medicine. PRUDENCE Martinez Family Medicine Scheduling Special interest in OB Care, Pediatrics [address] [place] [address] AttachmentsThe following attachments cannot be sent through Care Everywhere.FECAL IMPACTION , TREATED (NEPALI)CONSTIPATION (ADULT) (NEPALI)documented in this encounter Medications at Time of [...]
--- OUTSIDE RECORDS SUMMARY | ~2019-03-21 | XMS | Encounter Summary ---
Demographics + + + | Address | [address] | | | [place] [address] | + + + | Home Phone [...] [facility] | | | and [...] Team Providers + +------+ + | Care Metal Bonding Press Operator Name | Role | Phone | + +------+ + PCP | Unavailable | + +------+ + Encounter Details +--------+ + + + + | Date | Type | Department | Care Team | Description | +--------+ + + + + | 06/08/ | Hospital | [facility] | Morgan Woo MD | | | 2011 | Encounter | MED CTR XRAY [address] | [address] [place] | | | | | [place] | [address] [place], | | | | | [place] [address] | [place] [address] | | | | | [phone] | [phone] | | | | | | | [...] Performed At | + + + | [facility] Diagnostic Imaging Department | [facility] | | [address] [facility] | [facility] | | UNENHANCED CT PARANASAL SINUSES: | [...] Transcribed | | | Date/Time: 06/08/2011 14:15 Cook Italian Style Food: | | | <Electronically Signed by Neftaly Samuel MD> 06/08/111 | | + + + + + | Procedure Note | + + | Vitaly, Rad Conversion - 06/07/2013 4:42 PM [facility] [place] | | Diagnostic Imaging Department | | [address] [facility] | | | | | [...] | Transcribed Date/Time: 06/08/2011 14:15 | | Cook Italian Style Food: NADIA | | <Electronically Signed by Neftaly [...]
--- OUTSIDE RECORDS SUMMARY | ~2019-03-21 | XMS | Encounter Summary ---
Demographics + + + | Address | [address] | | | [place] [address] | + + + | Home Phone [...] Author | [facility] | | | and [place] | + + + | Organization | [facility] [...] Team Providers + +------+ + | Care Commercial Print Salesman Name | Role | Phone | + +------+ + PCP | Unavailable | + +------+ + Encounter Details +--------+ + + + + | Date | Type | Department | Care Team | Description | +--------+ + + + + | 03/09/ | Hospital | [facility] | Morgan Woo MD | Benign neoplasm of | | 2015 | Encounter | MED CTR LABORATORY | [address] [place] | tongue | | | | [address] [place] | [address] [place], | | | | | [place], [place] | [place] [address] | | | | | [address] | [phone] | | | | | [phone] | | | +--------+ + + + [...] | mL/min/1.73m2 | [facility] | | | [place] | RATE,ESTIMATED | | MEDICAL | | | | mL/min/1.80l9Ibzb than | | CENTER - | | [...] + | [facility] | [address] | [place], [place] | [phone] | | [facility] | | [address] | | | - LABORATORY | | [...] + | [facility] | [address] | [place] | [phone] | | [facility] | | [address] | | | - LABORATORY | | [...] [address] | [place] | [phone] | | [facility] | | [address] | | | - LABORATORY | | | | + + + + + documented in this encounter Visit Diagnoses + + | Diagnosis | + + | Benign neoplasm of tongue | + + documented in this encounter"
--- OUTSIDE RECORDS SUMMARY | ~2019-03-21 | XMS | Encounter Summary ---
Demographics + + + | Address | [address] | | | [place] [address] | + + + | Home Phone [...] | [facility] | [...] Team Providers + +------+ + | Care Glass Cleaner Name | Role | Phone | + [...] | | | | | Procedures | [address] | [address] | | | | | NEW PT | CONFEDERATED | SHON MENENDEZ, | | | | | CONSULT | [facility] | [place] [address] | | | | | | BILL, | Phone: | | | | | | [place] [address] | [phone] | | | | | | Phone: | Fax: | | | | | | [phone] | [phone] | | | | | | Fax: | | | | | | | [phone] | | +--------+--------+ + + + + [...] | (Primary Dx); | | | | [place], | [place], [place] | Asthma, unspecified | | | | [place] [address] | [address] | asthma severity, | | | | [phone] | | unspecified whether | | | [...] ou have any questions. Talk to your account support specialist regarding the use of this medicine in children. Special care may be needed. What side effects may I notice from receiving this medicine? Side effects that you should report to your doctor or health child care aide as soon as p ossible: allergic reactions [...] attention (report to your doctor or health child care aide if they continue or are bothersome): cough [...] this medicine? Tell your doctor or health child care aide if your symptoms do not improve. Do [...] [facility] They have not completed pulmonary rehabilitation in [...] Tunnel Release; Surgeon: Ramon Stokes MD; Location: [facility] MAIN OR CHOLECYSTECTOMY HYSTERECTOMY endometriosis SINUS [...]
--- OUTSIDE RECORDS SUMMARY | ~2019-03-21 | XMS | Encounter Summary ---
Demographics + + + | Address | [address] | | | [place] [address] | + + + | Home Phone [...] | Organization | [facility] | | [...] Team Providers + +------+ + | Care Babcock Tester Name | Role | Phone | + [...] + + | 01/13/ | Emergency | [facility] | Ronald Kasper MD | Other ascites | | 2019 | | MED CTR EMERGENCY | [address] | (Primary Dx); | | | | CENTER [address] | [place], [place] | Abdominal pain, | | | | [place], [place] | [address] | unspecified | | | | [address] | | abdominal location | | | | [phone] | | | +--------+ + + + [...] phone call by then. [facility]. Do not drink or drive while on the pain medication. AttachmentsThe following attachments cannot be sent through Care Everywhere.Ascites (Englis h)Acetaminophen; Hydrocodone tablets or capsules (Amharic)documented in this encounter Medications at Time of [...] | | | N: | | | [id number] | | | 91169M | | | riteri | | | [...] | | | St. | | | [place] | | | y | | | [...] | | | St. | | | [place] | | | y | | | [...] | | | St. | | | [place] | | | y | | | [...] | | | St. | | | [place] | | | y | | | [...] | | | St. | | | [place] | | | y H. | | | [place] | | | [place] | | | Emerge | | | ncy | | | Chief | | | Compla | | | int: | | | SHAKY | | | Sep | | | 1, | | | 2019 | | | [facility] | | | [facility] | | | [place] | | | y H. | | [...] | | | St. | | | [place] | | | y H. | | [...] | | | St. | | | [place] | | | y H. | | [...] | | | St. | | | [place] | | | y H. | | [...] | | | St. | | | [place] | | | y H. | | [...] | | | St. | | | [place] | | | y H. | | [...] | | | St. | | | [place] | | | y H. | | [...] | | | St. | | | [place] | | | y H. | | [...] | | | St. | | | [place] | | | y H. | | [...] | | | 2018 | | | [place] | | | | | | Health [...] | | | St. | | | [place] | | | y H. | | [...] MD | | | | | | Coin Machine Assembler | | | al | | | [...] | | | N, | | | BIOMEDICAL ELECTRONICS TECHNICIAN-C | | | Nurse | | [...] | | | [id number] | | | [id number] | | | 09 | | | [...] [address] | [place] | [phone] | | [facility] | | [address] | | | - LABORATORY | | [...] + + | Performing | Address | City/State/[facility] | Phone Number | | Organization | | | | + + + + + | ELENO ZAFAR. | [address] | [place] | [phone] | | [facility] | | [address] | | | - LABORATORY | | [...] + | [facility] | [address] | [place] | [phone] | | [facility] | | [address] | | | - LABORATORY | | [...] | | | | | mmol/L | [facility] | | | | | | MEDICAL [...] | | MEDICAL | | | | mL/min/1.92q6Hsqf than | | CENTER - | | [...] [address] | [place] | [phone] | | [facility] | | [address] | | | - LABORATORY | | [...] [address] | [place] | [phone] | | [facility] | | [address] | | | - LABORATORY | | [...] | | | | | Patient Address: [address] [place] [address] Rd | | | | | | | [address], [place] [address], | | | | | | + + + + +------+------+ +---+---+ | | | +---+---+ documented in this encounter
--- OUTSIDE RECORDS SUMMARY | ~2019-03-21 | XMS | Encounter Summary ---
Demographics + + + | Address | [address] | | | [place] [address] | + + + | Home Phone [...] Organization | [facility] | | | and [place] [...] Providers + +------+ + | Care Manager Placement Name | Role | Phone | + [...] ZAFAR | | | | | [address] [facility] | [place] | | | | | [place] | [address] | | | | | [address] | | | | | | [phone] | | | +--------+--------+ + + + [...]
--- OUTSIDE RECORDS SUMMARY | ~2019-03-21 | XMS | Encounter Summary ---
Demographics + + + | Address | [address] | | | [place] [address] | + + + | Home Phone [...] | Author | [facility] | | | and [place] | + + + | Organization | [facility] | | | and [place] [...] Team Providers + +------+ + | Care Trim Installer Name | Role | Phone | + [...] [address] | | | | | [place], | [place] | | | | | [place] [address] | [address] | | | | | [phone] | | | +--------+ + + + [...]
--- OUTSIDE RECORDS SUMMARY | ~2019-03-21 | XMS | Encounter Summary ---
Demographics + + + | Address | [address] | | | [place] [address] | + + + | Home Phone [...] | Organization | [facility] [...] Team Providers + +------+ + | Care Chilling Hood Operator Name | Role | Phone | + +------+ + PCP | Unavailable | + +------+ + Encounter Details +--------+ + + + + | Date | Type | Department | Care Team | Description | +--------+ + + + + | 03/09/ | Hospital | [facility] | Morgan Woo MD | Benign neoplasm of | | 2015 | Encounter | MED CTR LABORATORY | [address] [place] | tongue | | | | [address] [place] | [address] [place], | | | | | [place], [place] | [place] [address] | | | | | [address] | [phone] | | | | | [phone] | | | +--------+ + + + [...] | mL/min/1.73m2 | [facility] | | | BHUTANESE | RATE,ESTIMATED | | MEDICAL | | | | mL/min/1.32y7Vijw than | | CENTER - | | [...] + | [facility] | [address] | [place], [place] | [phone] | | [facility] | | [address] | | | - LABORATORY | | [...] + | [facility] | [address] | [place] | [phone] | | [facility] | | [address] | | | - LABORATORY | | [...] [address] | [place] | [phone] | | [facility] | | [address] | | | - LABORATORY | | | | + + + + + documented in this encounter Visit Diagnoses + + | Diagnosis | + + | Benign neoplasm of tongue | + + documented in this encounter"
--- OUTSIDE RECORDS SUMMARY | ~2019-03-21 | XMS | Encounter Summary ---
Demographics + + + | Address | [address] | | | [place] [address] | + + + | Home Phone [...] + | Organization | [facility] | | | and [place] [...] Team Providers + +------+ + | Care Wire Twisting Machine Operator Name | Role | Phone [...] | | | | CENTER [address] | [address] [place] | | | | | [place], [place] | [place] [address] | | | | | [address] | [phone] | | | | | [phone] | | | +--------+ + + + [...] cannot be sent through Care Everywhere.Lymphedema (Eng [facility])Leg Swelling in Both Legs (Liberian)Lymphedema, Managing (Liberian)Oxycodone tablets or c apsules (Liberian)documented in this encounter Medications at Time of [...] | | | N: | | | [id number] | | | 6[address]H | | | riteri | | | [...] | | | St. | | | [place] | | | y | | | [...] | | | St. | | | [place] | | | y | | | [...] | | | St. | | | [place] | | | y | | | [...] Acuity | | | | | | [place] | | | | | | Health [...] | | | St. | | | [place] | | | y | | | [...] | | | 2019 | | | [place] | | | | | | Health [...] | | | St. | | | [place] | | | y H. | | | [place] | | | [place] | | | Emerge | | | ncy | | | Chief | | | Compla | | | int: | | | SHAKY | | | Sep | | | 1, | | | 2019 | | | [facility] | | | [facility] | | | [place] | | | y H. | | [...] | | | St. | | | [place] | | | y H. | | [...] | | | St. | | | [place] | | | y H. | | [...] | | | St. | | | [place] | | | y H. | | [...] | | | 2019 | | | [place] | | | | | | Health [...] | | | St. | | | [place] | | | y H. | | [...] | | | St. | | | [place] | | | y H. | | [...] MD | | | | | | Mortgage Collector | | | al | | | [...] | | | N, | | | CLOTH MERCERIZER BACK TENDER-C | | | Nurse | | | [...] [address] | [place] | [phone] | | [facility] | | [address] | | | - LABORATORY | | [...] ST. | [address] | [place], [place] | [phone] | | [facility] | | [address] | | | - LABORATORY | | [...] | | | | | | [facility] | | | | | | MEDICAL | | | | | | CENTER - | | | | | | LABORATORY | | + + + + + + | Creatinine | 0.77 | 0.55 - 1.02 | [facility] | | | | | mg/dL | [facility] | | | | | | MEDICAL | | | | | | CENTER - | | | | | | LABORATORY | | + + + + + + | eGFR if not | >60Comment: GLOMERULAR | >=60 | [facility] | | | | FILTRATION | mL/min/1.73m2 | [facility] | | | [place] | RATE,ESTIMATED | | MEDICAL | | | | mL/min/1.29n7Xpvi than | | CENTER - | | [...] [address] | [place] | [phone] | | [facility] | | [address] | | | - LABORATORY | | [...] [address] | [place] | [phone] | | [facility] | | [address] | | | - LABORATORY | | [...] ordering provider, | | | by the lpn instructor, immediately following the exam. Dictated | | [...] to the ordering provider, by the | |lpn instructor, immediately following the exam. | | | [...] | | | | | Patient Address: [address] [place] [address] | | | | | | | [address];[place] [address], | | | | | | + + + +------+---+---+ +---+---+ | | | +---+---+ documented in this encounter
--- OUTSIDE RECORDS SUMMARY | ~2019-03-21 | XMS | Encounter Summary ---
Demographics + + + | Address | [address] | | | [place] [address] | + + + | Home Phone [...] | Organization | [facility] | | | and [...] Team Providers + +------+ + | Care Activity Coordinator Name | Role | Phone | [...] wound (Primary Dx) | | | | [place], [place] | [place] [address] | | | | | [address] | [phone] | | | | | [phone] | | | +--------+ + + + [...] will be here for her [facility] follow-up appt in our office. Patient [...]
--- OUTSIDE RECORDS SUMMARY | ~2019-03-21 | XMS | Encounter Summary ---
Demographics + + + | Address | [address] | | | [place] [...] [facility] | | | and [place] [...] Team Providers + +------+ + | Care Geophysical E Logger Name | Role | Phone | + [...] + + | 08/13/ | Emergency | [facility] | Jeffrey Augustin | Closed fracture of | | 2018 | | MED CTR EMERGENCY | MD Anjum [address] | multiple ribs of | | | | CENTER [address] | [address] [place] | left side, initial | | | | [place] | [place] [address] | encounter (Primary | | | | [address] | [phone] | Dx); Acute pain; | | | | [phone] | | Fall, initial | | | [...] report was | | | sent by [employer] with no significant discrepancy. | | | [...] | A preliminary report was sent by [employer] with no significant | | discrepancy. | [...] | | | | | | [employer] | | | | | [...] ST. | [address] | [place] | [phone] | | [facility] | | [address] | | | - LABORATORY | | [...] + | [facility] | [address] | [place] | [phone] | | [facility] | | [address] | | | - LABORATORY | | [...] mL/min/1.73m2 | [facility] | | | [place] | RATE,ESTIMATED | | MEDICAL | | | | mL/min/1.32a6Manq than | | CENTER - | | [...] + | [facility] | [address] | [place], [place] | [phone] | | [facility] | | [address] | | | - LABORATORY | | [...] + | [facility] | [address] | [place] | [phone] | | [facility] | | [address] | | | - LABORATORY | | [...] | | | | JOSELUIS PINON MD ([id number]) | | | | | | on [...]
--- OUTSIDE RECORDS SUMMARY | ~2019-03-21 | XMS | Encounter Summary ---
Demographics + + + | Address | [address] | | | [place] [address] | + + + | Home Phone [...] Organization | [facility] | | | and [...] Team Providers + +------+ + | Care Zigzag Appliquer Name | Role | Phone | + [...] ZAFAR | | | | | [address] [facility] | [place] | | | | | [place] | [address] | | | | | [address] | | | | | | [phone] | | | +--------+--------+ + + + [...]
--- OUTSIDE RECORDS SUMMARY | ~2019-03-21 | XMS | Encounter Summary ---
Demographics + + + | Address | [address] | | | [place] [address] | + + + | Home Phone [...] Organization | [facility] | | | and [place] [...] Team Providers + +------+ + | Care Area Cleaner Name | Role | Phone | + +------+ + PCP | Unavailable | + +------+ + Encounter Details +--------+ + + + + | Date | Type | Department | Care Team | Description | +--------+ + + + + | 02/13/ | Imaging | [facility] | Provider, | | | 2018 | Exam | MED CTR EXTERNAL | MD Sosa [address] | | | | | IMAGING | [place] | | | | | [phone] | [place] [address] | | +--------+ + + + + [...]
--- OUTSIDE RECORDS SUMMARY | ~2019-03-21 | XMS | Encounter Summary ---
Demographics + + + | Address | [address] | | | [place] [address] | + + + | Home Phone | | + + + | Preferred Language | Unknown | + + + | Marital Status | | + + + | Christian Affiliation | Unknown | + + + | Race | Unknown | + + + | Ethnic Group | Unknown | + + + Author + + + | Author | [facility] | | | and [place] | + + + | Organization | [facility] | [...] Team Providers + +------+ + | Care Air Conditioning Installer Name | Role | Phone | + +------+ + PCP | Unavailable | + +------+ + Encounter Details +--------+ + + + + | Date | Type | Department | Care Team | Description | +--------+ + + + + | 02/14/ | Imaging | [facility] | Provider, | | | 2018 | Exam | MED CTR EXTERNAL | MD [address] | | | | | IMAGING | [place] | | | | | [phone] | [place] [address] | | +--------+ + + + + [...]
--- OUTSIDE RECORDS SUMMARY | ~2019-03-21 | XMS | Encounter Summary ---
Demographics + + + | Address | [address] | | | [place] [address] | + + + | Home Phone | | + + + | Preferred Language | Unknown | + + + | Marital Status | | + + + | Evangelical Affiliation | Unknown | + + + | Race | Unknown | + + + | Ethnic Group | Unknown | + + + Author + + + | Author | [facility] | | | and Keshawnana | + + + | Organization | [facility] | [...] Providers + +------+ + | Care Industrial Production Manager Name | Role | Phone | [...] RICARDO | | | | | [address] [facility] | [place] | | | | | [place] | [address] | | | | | [address] | | | | | | [phone] | | | +--------+ + + + [...]
--- OUTSIDE RECORDS SUMMARY | ~2019-03-21 | XMS | Encounter Summary ---
Demographics + + + | Address | [address] | | | [place] [address] | + + + | Home Phone | | + + + | Preferred Language | Unknown | + + + | Marital Status | | + + + | Yazdanism Affiliation | Unknown | + + + | Race | Unknown | + + + | Ethnic Group | Unknown | + + + Author + + + | Author | [facility] | | | and Keshawnana | + + + | Organization | [facility] [...] Team Providers + +------+ + | Care Tests Superintendent Name | Role | Phone | + [...] + | 11/01/ | Emergency | [facility] | Ronald Kasper MD | [facility] | | 2019 | | MED CTR EMERGENCY | [address] | (Primary Dx) | | | | CENTER [address] | [place] | | | | | [place] | [phone] | | | | | [address] | | | | | | [phone] | Reza Pittman, | | | | | | [address] | | | | | | [place] | | | | | | [phone] | | | | | | | [...] | | | N: | | | [id number] | | | [id number] | | | riteri | | | [...] | | | St. | | | Morgan | | | y | | | [...] | | | St. | | | Morgan | | | y | | | [...] | | | St. | | | Morgan | | | y | | | [...] | | | St. | | | Morgan | | | y | | | [...] | | | St. | | | Morgan | | | y H. | | [...] | | | St. | | | Morgan | | | y H. | | [...] | | | St. | | | Morgan | | | y H. | | [...] | | | St. | | | Morgan | | | y H. | | [...] | | | St. | | | Morgan | | | y H. | | [...] | | | St. | | | Morgan | | | y H. | | [...] | | | St. | | | Morgan | | | y H. | | [...] | | | St. | | | Morgan | | | y H. | | [...] | | | St. | | | Morgan | | | y H. | | [...] | | | St. | | | Morgan | | | y H. | | [...] | | | 2018 | | | [place] | | | | | | Health [...] | | | St. | | | Morgan | | | y H. | | [...] MD | | | | | | Online Advertising Director | | | al | | | [...] [address] | [place] | [phone] | | [facility] | | [address] | | | - LABORATORY | | [...] [address] | [place] | [phone] | | [facility] | | [address] | | | - LABORATORY | | [...] ST. | [address] | [place] | [phone] | | [facility] | | [address] | | | - LABORATORY | | [...] + | [facility] | [address] | [place] | [phone] | | [facility] | | [address] | | | - LABORATORY | | [...] use as of June 27, | | [facility] | | | | 2018. Check reference [...] ST. | [address] | [place], [place] | [phone] | | [facility] | | [address] | | | - LABORATORY | | [...] | 0.87 | 0.55 - 1.02 | [facility] | | | | | mg/dL [...] mL/min/1.73m2 | [facility] | | | CHINESE | RATE,ESTIMATED | | MEDICAL | | | | mL/min/1.25x1Znzp than | | CENTER - | | [...] [address] | [place] | [phone] | | [facility] | | [address] | | | - LABORATORY | | [...] | | | | | | [facility] | | | | | | MEDICAL [...] [address] | [place] | [phone] | | [facility] | | [address] | | | - LABORATORY | | [...] | | | | | Intravenous, ONCE, [facility] 11/01/18 at | | PM PDT | | | | | 1620, For 1 dose | | | | | | + +--------+ +------+------+------+ +---+---+ | | | +---+---+ documented in this encounter
--- OUTSIDE RECORDS SUMMARY | ~2019-03-21 | XMS | Encounter Summary ---
Demographics + + + | Address | [address] | | | [place] [address] | + + + | Home Phone [...] + | Organization | [facility] | | | and [...] + +------+ + | Care Pipe Fitter Apprentice Name | Role | Phone | [...] | | | | | tounge/yello | [address] | | | | | w | [place] | [address] | | | | | hawk/[address] | [address] | [place], | | | | | s/ | [place], | [place] [address] | | | | | [place] | [place] [address] | Phone: | | | | | faxing auth | Phone: | [phone] | | | | | Procedures | [phone] | Fax: | | | | | OFFICE | Fax: | [phone] | | | | | VISIT | [phone] | | | | | | REGULAR [...] | of tongue | | | | [place], [place] | [place] [address] | | | | | [address] | [phone] | | | | | [phone] | | | +--------+---------+ + + + [...] - 03/09/2015 11:32 AM PST [facility] [address] [facility] [address] OFFICE NOTE MORGAN WATERS MD Patient: LESLYE WHITLEY Admitting: MR #: [id number] LOC: PT TYPE: Adm Date: 03/09/2015 : [...] of probable thrush. PLAN: The patient will picker operator some yogurt with active bacteria [...] 03/09/2015 11:32:30 Transcribed on 03/10/2015 06:05:27 by [facility] job# [id number] Confirmation #: [id number] cc: MORGAN MELCHOR MD ar sh, Morgan Florez MD - 03/09/2015 11:28 AM PSTSee dictation # [id number] signed by Morgan Waters MD at 03/09/2015 [...] mL/min/1.73m2 | [facility] | | | [place]IAN | RATE,ESTIMATED | | MEDICAL | | | | mL/min/1.40w8Sfxa than | | CENTER - | | [...] | [address] | [place] | [phone] | | [facility] | | [address] | | | - LABORATORY | | [...] + | [facility] | [address] | [place] | [phone] | | [facility] | | [address] | | | - LABORATORY | | [...] + | [address] [facility] | [address] | [place] | [phone] | | [facility] | | [address] | | | - LABORATORY | | | | + + + + + documented in this encounter Visit Diagnoses + + | Diagnosis | + + | Glossitis - Primary | + + | Benign neoplasm of tongue | + + documented in this encounter
--- OUTSIDE RECORDS SUMMARY | ~2019-03-21 | XMS | Encounter Summary ---
Demographics + + + | Address | [address] | | | [place] [address] | + + + | Home Phone [...] | Organization | [facility] | | | and [...] Team Providers + +------+ + | Care Tile Trimmer Name | Role | Phone | + [...] Aniya JAMES | | | | | [phone] | [place] [address] | | +--------+ + + + + [...]
--- OUTSIDE RECORDS SUMMARY | ~2019-03-21 | XMS | Encounter Summary ---
Demographics + + + | Address | [address] | | | [place] [address] | + + + | Home Phone [...] Organization | [facility] | | [...] Team Providers + +------+ + | Care Construction Management Assistant Name | Role | Phone | [...] | | | | CENTER [address] | [address] | | | | | [place], [place] | [place] [address] | | | | | [address] | [phone] | | | | | [phone] | | | +--------+ + + + [...] cannot be sent through Care Everywhere.Lymphedema (Eng [facility])Leg Swelling in Both Legs (Tanzanian)Lymphedema, Managing (Tanzanian)Oxycodone tablets or c apsules (Tanzanian)documented in this encounter Medications at Time of [...] | | | N: | | | [id number] | | | [id number] | | | riteri | | | [...] | | | St. | | | [place] | | | y | | | [...] | | | St. | | | [place] | | | y | | | [...] | | | St. | | | [place] | | | y | | | [...] Acuity | | | | | | [place] | | | | | | Health [...] | | | St. | | | [place] | | | y | | | [...] | | | 2019 | | | [place] | | | | | | Health [...] | | | St. | | | [place] | | | y H. | | | [place] | | | [place] | | | Emerge | | | ncy | | | Chief | | | Compla | | | int: | | | SHAKY | | | Sep | | | 1, | | | 2019 | | | [facility] | | | St[facility] | | | [place] | | | y H. | | [...] | | | St. | | | [place] | | | y H. | | [...] | | | St. | | | [place] | | | y H. | | [...] | | | St. | | | [place] | | | y H. | | [...] | | | 2019 | | | [place] | | | | | | Health [...] | | | St. | | | [place] | | | y H. | | [...] | | | St. | | | [place] | | | y H. | | [...] MD | | | | | | Line Driver | | | al | | | [...] | | | N, | | | VERIFIER-C | | | Nurse | | | [...] [address] | [place] | [phone] | | [facility] | | [address] | | | - LABORATORY | | [...] ST. | [address] | [place], [place] | [phone] | | [facility] | | [address] | | | - LABORATORY | | [...] | 0.77 | 0.55 - 1.02 | [facility] | | | | | mg/dL | [facility] | | | | | | MEDICAL | | | | | | CENTER - | | | | | | LABORATORY | | + + + + + + | eGFR if not | >60Comment: GLOMERULAR | >=60 | [facility] | | | | FILTRATION | mL/min/1.73m2 | [facility] | | | SAMMARINESE | RATE,ESTIMATED | | MEDICAL | | | | mL/min/1.91f9Wlbo than | | CENTER - | | [...] [address] | [place] | [phone] | | [facility] | | [address] | | | - LABORATORY | | [address] | [place] | [phone] | | [facility] | | [address] | | | - LABORATORY | | [...] ordering provider, | | | by the office services coordinator, immediately following the exam. Dictated | | [...] to the ordering provider, by the | |office services coordinator, immediately following the exam. | | | [...] | | | | | Patient Address: [address] [place] [address] | | | | | | | [address];[place] [address], | | | | | | + + + +------+---+---+ +---+---+ | | | +---+---+ documented in this encounter
--- OUTSIDE RECORDS SUMMARY | ~2019-03-21 | XMS | Encounter Summary ---
Demographics + + + | Address | [address] | | | [place] [address] | + + + | Home Phone [...] | Organization | [facility] | | | and [...] Team Providers + +------+ + | Care Biomass Boiler Operator Name | Role | Phone | + +------+ + PCP | Unavailable | + +------+ + Encounter Details +--------+ + + + + | Date | Type | Department | Care Team | Description | +--------+ + + + + | 02/13/ | Imaging | [facility] | Provider, | | | 2018 | Exam | MED CTR EXTERNAL | MD [address] | | | | | IMAGING | [place] | | | | | [phone] | [place] [address] | | +--------+ + + + + [...]
--- OUTSIDE RECORDS SUMMARY | ~2019-03-21 | XMS | Encounter Summary ---
Demographics + + + | Address | [address] | | | [place] [address] | + + + | Home Phone | | + + + | Preferred Language | Unknown | + + + | Marital Status | | + + + | Methodist Affiliation | Unknown | + + + | Race | Unknown | + + + | Ethnic Group | Unknown | + + + Author + + + | Author | [facility] | | | and Keshawnana | + + + | Organization | [facility] | | [...] Team Providers + +------+ + | Care Jewelry Appraiser Name | Role | Phone | [...] ZAFAR | | | | | [address] [facility] | [place] | | | | | [place] | [address] | | | | | [address] | | | | | | [phone] | | | +--------+--------+ + + + [...]
--- OUTSIDE RECORDS SUMMARY | ~2019-03-21 | XMS | Encounter Summary ---
Demographics + + + | Address | [address] | | | [place] [address] | + + + | Home Phone [...] Author | [facility] | | | and Keshawnana | + + + | Organization | [facility] | | | [...] Team Providers + +------+ + | Care Flight Security Specialist Name | Role | Phone | + +------+ + PCP | Unavailable | + +------+ + Encounter Details +--------+ + + + + | Date | Type | Department | Care Team | Description | +--------+ + + + + | 02/13/ | Imaging | [facility] | Provider, | | | 2018 | Exam | MED CTR EXTERNAL | MD [address] | | | | | IMAGING | [place] JAMES | | | | | [phone] | [place] [address] | | +--------+ + + + + [...]
--- OUTSIDE RECORDS SUMMARY | ~2019-03-21 | XMS | Encounter Summary ---
Demographics + + + | Address | [address] | | | [place] [address] | + + + | Home Phone | | + + + | Preferred Language | Unknown | + + + | Marital Status | | + + + | Church Affiliation | Unknown | + + + | Race | Unknown | + + + | Ethnic Group | Unknown | + + + Author + + + | Author | [facility] | | | and Keshawnana | + + + | Organization | [facility] | | | and [...] Team Providers + +------+ + | Care Shop Tailor Apprentice Name | Role | Phone | [...] Aniya JAMES | | | | | [phone] | [place] [address] | | +--------+ + + + + [...] for comparison only - no result from [place]. | | + + + + +---------+ + + | Performing | Address | City/State/Zipcode | Phone Number | | Organization | | | | + +---------+ + + | [facility] | | | | + +---------+ + + documented in this encounter Visit Diagnoses Not on filedocumented in this encounter"
--- OUTSIDE RECORDS SUMMARY | ~2019-03-21 | XMS | Encounter Summary ---
Demographics + + + | Address | [address] | | | [place] [address] | + + + | Home Phone [...] + | Author | [facility] | | | and Keshawnana | + + + | Organization | [facility] | [...] Team Providers + +------+ + | Care Creative/Art Director Name | Role | Phone | [...] | | | | | | | CO REVISE | | | | | | [...] | Surgery | [facility] | Ramon Stoeks | Right Carpal Tunnel | | 2015 | | MED CTR OR INTRA OP | MD Ginette Carver | Release | | | | [address] | [place] | | | | | [place] | [address] | | | | | [address] | | | | | | [phone] | | | +--------+---------+ + + + [...] mg of acetaminophen (Tylenol) per day. Hydrocodone-acetaminophen (Purdy ) and Oxycodone-acetaminophen (Percocet) have 325 mg [...] hand or fingers Fever over 100.4F (38C) 2472-4517 [employer]. [address] [place] [address]. All righ ts reserved. This information is [...] 29 | 22 - 36 seconds | [facility] | | | | | [...] [address] | [place] | [phone] | | [facility] | | [address] | | | - LABORATORY | | [...] + | [facility] | [address] | [place] | [phone] | | [facility] | | [address] | | | - LABORATORY | | [...] ZAFAR. | [address] | [place] | [phone] | | [facility] | | [address] | | | - LABORATORY | | [...] | | | FILTRATION | mL/min/1.73m2 | [facility] | | | CAMEROONIAN | RATE,ESTIMATED | | MEDICAL | | | | mL/min/1.84z2Xbxe than | | CENTER - | | [...] [address] | [place] | [phone] | | [facility] | | [address] | | | - LABORATORY | | [...] [address] | [place] | [phone] | | [facility] | | [address] | | | - LABORATORY | | [...] | | | | | g/dL | [facility] | | | | | [...] [address] | [place] | [phone] | | [facility] | | [address] | | | - LABORATORY | | [...]
--- OUTSIDE RECORDS SUMMARY | ~2019-03-21 | XMS | Encounter Summary ---
Demographics + + + | Address | [address] | | | [place] [address] | + + + | Home Phone | | + + + | Preferred Language | Unknown | + + + | Marital Status | | + + + | Jainism Affiliation | Unknown | + + + | Race | Unknown | + + + | Ethnic Group | Unknown | + + + Author + + + | Author | [facility] | | | and Keshawnana | + + + | Organization | [facility] | | | and [place] [...] Team Providers + +------+ + | Care Police Judge Name | Role | Phone | + [...] + + | 12/06/ | Office | [facility] | Caro Flores | S/P orthopedic | | 2016 | Visit | ORTHOPEDIC SURGERY | MD Mehul [address] [place] [address] | surgery, follow-up | | | | [address] [facility] | [place] | exam (Primary Dx) | | | | [place], [place] | [address] | | | | | [address] | | | | | | [phone] | | | +--------+---------+ + + + [...] - 12/07/2015 8:56 AM PDTSee soap note [id number].Electronically sign ed by Caro Flores MD at 12/07/2015 8:56 AM PDTCaro Flores MD - 8:56 AM PDT [facility] ORTHOPEDIC SURGERY [address] [place] [address] OFFICE NOTE CARO FLORES MD Patient: ALINE WHITLEY Admitting: MR #: [id number] LOC: PT TYPE: Adm Date: 12/07/2015 : [...] of motion of the fingers with good bilingual operator strength. ADVICE: Overall, Aline has done well. [...] Transcribed on 12/08/2015 09:24:15 by damian job# [id number] Confirmation #: [id number] cc: LANA MELCHOR DO documented in this encounter Plan of Treatment Not on filedocumented as of this encounter Visit Diagnoses + + | Diagnosis | + + | S/P orthopedic surgery, follow-up exam - Primary Follow-up examination, following | | other surgery | + + documented in this encounter
--- OUTSIDE RECORDS SUMMARY | ~2019-03-21 | XMS | Encounter Summary ---
Demographics + + + | Address | [address] | | | [place] [address] | + + + | Home Phone [...] Organization | [facility] | | | and [place] | [...] Providers + +------+ + | Care Supervisor Alum Plant Name | Role | Phone | + [...] + + | 12/07/ | Emergency | [facility] | [place], | Fecal impaction in | | 2015 | | MED CTR EMERGENCY | Anjum Martinez MD [address] | rectum ([facility]) | | | | CENTER [address] | [address] [place] | (Primary Dx) | | | | [place], [place] | [place] [address] | | | | | [address] | [phone] | | | | | [phone] | | | +--------+ + + + [...] primary provider, below is a list of [facility] group providers currently accepting new patients Primary Care Accepting New Patients 12/07/2014 Dr. Anjum Abraham Family Medicine Scheduling Special interest in geriatrics. Dr. Luigi Tena Family Medicine Scheduling Dr. Dusty Snider Family Medicine Obstetrics Scheduling Full scope family medicine- including obstetrics, pediatrics and adult medicine. PRUDENCE Martinez Family Medicine Scheduling Special interest in OB Care, Pediatrics [address] [place] [id number] AttachmentsThe following attachments cannot be sent through Care Everywhere.FECAL IMPACTION , TREATED (MAORI)CONSTIPATION (ADULT) (MAORI)documented in this encounter Medications at Time of [...]
--- OUTSIDE RECORDS SUMMARY | ~2019-03-21 | XMS | Encounter Summary ---
Demographics + + + | Address | [address] | | | [place] [address] | + + + | Home Phone [...] Organization | [facility] [...] Team Providers + +------+ + | Care Mill Tender Washing Name | Role | Phone | + [...] Aniya JAMES | | | | | [phone] | [place] [address] | | +--------+ + + + + [...]
--- OUTSIDE RECORDS SUMMARY | ~2019-03-21 | XMS | Encounter Summary ---
Demographics + + + | Address | [address] | | | [place] [address] | + + + | Home Phone [...] Organization | [facility] [...] Team Providers + +------+ + | Care Planogrammer Name | Role | Phone | + [...] + + | 01/31/ | Emergency | [facility] | Reza Wynn, | Other ascites | | 2019 - | | MEDICAL CENTER | [address] | (Primary Dx); | | | | EMERGENCY CENTER | [place] [address] | Generalized | | 02/01/ | | [address] | [phone] | abdominal pain; | | 2019 | | [place], [place] | | Autoimmune hepatitis | | | | [address] | | (HCC) | | | | [phone] | | | +--------+ + + + [...] be sent through Care Everywhere.Abdominal Pain, Adult (Maori)Ascites (Maori)documented in this encounter Medications at Time of [...] | | | MRN: | | | [id number] | | | [id number] | | | riteri | | | [...] | | | St. | | | [place] | | | y | | | [...] | | | St. | | | [place] | | | y | | | [...] | | | St. | | | [place] | | | y | | | [...] Acuity | | | | | | [place] | | | | | | Health [...] | | | St. | | | [place] | | | y | | | [...] | | | 2019 | | | [place] | | | | | | Health [...] | | | St. | | | [place] | | | y H. | | | [place] | | | [place] | | | Emerge | | | ncy | | | Chief | | | Compla | | | int: | | | SHAKY | | | Sep | | | 1, | | | 2019 | | | [facility] | | | [place] | | | y H. | | [...] | | | St. | | | [place] | | | y H. | | [...] | | | St. | | | [place] | | | y H. | | [...] | | | St. | | | [place] | | | y H. | | [...] | | | St. | | | [place] | | | y H. | | [...] | | | St. | | | [place] | | | y H. | | [...] | | | St. | | | [place] | | | y H. | | [...] | | | 2018 | | | [place] | | | | | | Health [...] | | | St. | | | [place] | | | y H. | | [...] MD | | | | | | Slug Press Operator | | | al | | [...] | | | N, | | | CHIEF JAILER-C | | | Nurse | | | [...] | [facility] | | | Result | [facility];[address] | | LABORATORY | | | | [address];[place] [address] | | | | + + + + + + | RESULT | NO GROWTH 4 DAYS | | [facility] | | | | | | LABORATORY | | + + + + + + | RESULT | Testing performed at | | [facility] | | | | TCL, [address] | | LABORATORY | | | | [place], [place] | | | | | | [id number]: Testing | | | | | | performed at [facility], [address] | | | | | | [place], [place] | | | | | | [address] | | | | + + + + + + + + | Specimen | + + | Body Fluid - Ascitic | | fluid sample | | (specimen) | + + + + + + + | Performing | Address | City/State/Zipcode | Phone Number | | Organization | | | | + + + + + | [facility] | [address] | [place] [address] | [phone] | + + + + + Cell [...] + + + | BF RBC | <92667 | /mm3 | [facility] | | | [...] | | | Counted | performed at [facility];[address] | | LABORATORY | | | | [facility];[place], [place] | | | | | | [id number] ON 02/01 | | | | | [...] [facility] | [address] | [place] [address] | [phone] | + + + + + Urinalysis [...] - 1.030 | [facility] | | | [place], | | | LABORATORY | | | [...] | | | OXALATE | performed at [facility];[address] | | LABORATORY | | | [address] | [address];[place] | | | | | | [address] | | | | + + + [...] + + + + + | [facility] | [address] | [place] [address] | [phone] | + + + + + Lipase (01/31/2019 9:42 PM PDT) + + + + + + | Component | Value | Ref Range | Performed | Pathologist | | | | | At | Signature | + + + + + + | Lipase | 66 (H)Comment: Testing | 12 - 53 U/L | SYD | | | | performed at [facility];[address] | | LABORATORY | | | | [address];[place], [place] | | | | | | [address] | | | | + + + + + + + + | Specimen | + + | Blood | + + + + + + + | Performing | Address | City/State/Zipcode | Phone Number | | Organization | | | | + + + + + | [facility] | [address] | [place] [address] | [phone] | + + + + + Comprehensive [...] | | | | | performed at [facility];[address] | | | | | | [facility];[place], [place] | | | | | | [address] | | | | + + + + + + + + | Specimen | + + | Blood | + + + + + + + | Performing | Address | City/State/Zipcode | Phone Number | | Organization | | | | + + + + + | [facility] | [address] | [place] [address] | [phone] | + + + + + CBC [...] | | | Absolute | performed at [facility];[address] | K/uL | LABORATORY | | | | [address];[place] | | | | | | [address] | | | | + + + + + + + + | Specimen | + + | Blood | + + + + + + + | Performing | Address | City/State/Zipcode | Phone Number | | Organization | | | | + + + + + | [facility] | [address] | [place] [address] | [phone] | + + + + + documented [...] mg | | | | Intravenous, ONCE, [facility] 01/31/19 at | | 19 10:25 | | | | | 2140, For 1 dose | | PM PDT | | | | + +-------+ +------+---+---+ +---+---+ | | | +---+---+ + +-------+ +------+---+---+ | morphine injection 4 mg 4 mg, | Given | 02/02/20 | 4 mg | | | | Intravenous, ONCE, [facility] 01/31/19 at | | 19 12:05 | | | | | 2320, For 1 dose | | AM PDT | | | | + +-------+ +------+---+---+ +---+---+ | | | +---+---+ documented in this encounter"
--- OUTSIDE RECORDS SUMMARY | ~2019-03-21 | XMS | Encounter Summary ---
Demographics + + + | Address | [address] | | | [place] [address] | + + + | Home Phone [...] | [facility] | | [...] Team Providers + +------+ + | Care Gatehouse Attendant Name | Role | Phone | + +------+ + PCP | Unavailable | + +------+ + Encounter Details +--------+ + + + + | Date | Type | Department | Care Team | Description | +--------+ + + + + | 09/07/ | Hospital | [facility] | Celeste Ross | Hepatic cirrhosis, | | 2018 | Encounter | MED CTR ULTRASOUND | [address] | unspecified hepatic | | | | [address] [place] | [facility] | cirrhosis type, | | | | [place], [place] | [address] [place], [place] | unspecified whether | | | | [address] | [address] | ascites present | | | | [phone] | [phone] | (HCC) | | | | | [...] 1315 hours by | | | the alteration tailor apprentice. Dictated and Signed by: Mark Anthony Finn [...] at 1315 hours by the | | alteration tailor apprentice. | | | | Dictated and Signed [...]
--- OUTSIDE RECORDS SUMMARY | ~2019-03-21 | XMS | Encounter Summary ---
Demographics + + + | Address | [address] | | | [place] [address] | + + + | Home Phone [...] + + + | Author | [facility] | | | and [place] | + + + | Organization | [facility] | | | and [place] [...] Team Providers + +------+ + | Care Driver Education Instructor Name | Role | Phone | [...] + + | 12/07/ | Emergency | [facility] | Milagro, | Fecal impaction in | | 2015 | | MED CTR EMERGENCY | Anjum Martinez MD [address] | rectum ([facility]) | | | | CENTER [address] | [address] [place] | (Primary Dx) | | | | [place], [place] | [place] [address] | | | | | [address] | [phone] | | | | | [phone] | | | +--------+ + + + [...] primary provider, below is a list of [facility] group providers currently accepting new patients Primary Care Accepting New Patients 12/07/2014 Dr. Anjum Abraham Family Medicine Scheduling Special interest in geriatrics. Dr. Luigi Tena Family Medicine Scheduling Dr. Dusty Snider Family Medicine Obstetrics Scheduling Full scope family medicine- including obstetrics, pediatrics and adult medicine. PRUDENCE [place] Family Medicine Scheduling Special interest in OB Care, Pediatrics [address] [place] [address] AttachmentsThe following attachments cannot be sent through Care Everywhere.FECAL IMPACTION , TREATED (ROMANSH)CONSTIPATION (ADULT) (ROMANSH)documented in this encounter Medications at Time of [...]
--- OUTSIDE RECORDS SUMMARY | ~2019-03-21 | XMS | Encounter Summary ---
Demographics + + + | Address | [address] | | | [place] [address] | + + + | Home Phone [...] + | Organization | [facility] | | [...] Team Providers + +------+ + | Care Raw Sampler Name | Role | Phone | + [...] + + | 12/06/ | Office | [facility] | Caro Flores | S/P orthopedic | | 2016 | Visit | ORTHOPEDIC SURGERY | MD Mehul [address] [place] [address] | surgery, follow-up | | | | [address] [facility] | [place] | exam (Primary Dx) | | | | [place], [place] | [address] | | | | | [address] | | | | | | [phone] | | | +--------+---------+ + + + [...] - 12/07/2015 8:56 AM PDTSee soap note [id number].Electronically sign ed by Caro Flores MD at 12/07/2015 8:56 AM PDTCaro Flores MD - 8:56 AM PDT [facility] ORTHOPEDIC SURGERY [address] [place] [address] OFFICE NOTE CARO FLORES MD Patient: ALINE WHITLEY Admitting: MR #: [id number] LOC: PT TYPE: Adm Date: 12/07/2015 : [...] of motion of the fingers with good cot assembler strength. ADVICE: Overall, Aline has done well. [...] Transcribed on 12/08/2015 09:24:15 by damian job# [id number] Confirmation #: [id number] cc: LANA MELCHOR DO documented in this encounter Plan of Treatment Not on filedocumented as of this encounter Visit Diagnoses + + | Diagnosis | + + | S/P orthopedic surgery, follow-up exam - Primary Follow-up examination, following | | other surgery | + + documented in this encounter
--- OUTSIDE RECORDS SUMMARY | ~2019-03-21 | XMS | Encounter Summary ---
Demographics + + + | Address | [address] | | | [place] [address] | + + + | Home Phone | | + + + | Preferred Language | Unknown | + + + | Marital Status | | + + + | Buddhism Affiliation | Unknown | + + + | Race | Unknown | + + + | Ethnic Group | Unknown | + + + Author + + + | Author | [facility] | | | and [place] | + + + | Organization | [facility] | | [...] Team Providers + +------+ + | Care Brazer Assembler Name | Role | Phone | + +------+ + PCP | Unavailable | + +------+ + Encounter Details +--------+ + + + + | Date | Type | Department | Care Team | Description | +--------+ + + + + | 01/17/ | Orders Only | [facility] | Quirino Olson | Right knee pain, | | 2018 | | ORTHOPEDIC SURGERY | [address] | unspecified | | | | [address] [facility] | Caio Reyes | chronicity (Primary | | | | [place] | [place] [address] | Dx) | | | | [address] | [phone] | | | | | [phone] | | | +--------+ + + + [...]
--- OUTSIDE RECORDS SUMMARY | ~2019-03-21 | XMS | Encounter Summary ---
Demographics + + + | Address | [address] | | | [place] [address] | + + + | Home Phone | | + + + | Preferred Language | Unknown | + + + | Marital Status | | + + + | Sabianist Affiliation | Unknown | + + + | Race | Unknown | + + + | Ethnic Group | Unknown | + + + Author + + + | Author | [facility] | | | and [place] | + + + | Organization | [facility] | | | and [...] Team Providers + +------+ + | Care Recovery Operator Name | Role | Phone | + +------+ + PCP | Unavailable | + +------+ + Encounter Details +--------+ + + + + | Date | Type | Department | Care Team | Description | +--------+ + + + + | 02/13/ | Imaging | [facility] | Provider, | | | 2018 | Exam | MED CTR EXTERNAL | MD [address]osa [address] | | | | | IMAGING | [place] | | | | | [phone] | [place] [address] | | +--------+ + + + + [...]
--- OUTSIDE RECORDS SUMMARY | ~2019-03-21 | XMS | Encounter Summary ---
Demographics + + + | Address | [address] | | | [place] [address] | + + + | Home Phone [...] | Located Within [facility] | | [...] Team Providers + +------+ + | Care Weekday Babysitter Name | Role | Phone | + [...] [place]iya JAMES | | | | | [phone] | [place] [address] | | +--------+ + + + + [...]
--- OUTSIDE RECORDS SUMMARY | ~2019-03-21 | XMS | Encounter Summary ---
Demographics + + + | Address | [address] | | | [place] [address] | + + + | Home Phone [...] | Author | [facility] | | | and [place] | + + + | Organization | [facility] | [...] Team Providers + +------+ + | Care Methods Study Analyst Name | Role | Phone | [...] [place] J[place] | | | | | [phone] | [place] [address] | | +--------+ + + + + [...] for comparison only - no result from [place]. | | + + + + +---------+ + + | Performing | Address | City/State/Zipcode | Phone Number | | Organization | | | | + +---------+ + + | [facility] | | | | + +---------+ + + documented in this encounter Visit Diagnoses Not on filedocumented in this encounter"
--- OUTSIDE RECORDS SUMMARY | ~2019-03-21 | XMS | Encounter Summary ---
Demographics + + + | Address | [address] | | | [place] [address] | + + + | Home Phone [...] | Organization | [facility] | | | and [...] Team Providers + +------+ + | Care Custom Furrier Name | Role | Phone | + +------+ + PCP | Unavailable | + +------+ + Encounter Details +--------+ + + + + | Date | Type | Department | Care Team | Description | +--------+ + + + + | 02/13/ | Imaging | [facility] | Provider, | | | 2018 | Exam | MED CTR EXTERNAL | MD [address] | | | | | IMAGING | [place] | | | | | [phone] | [place] [address] | | +--------+ + + + + [...]
--- OUTSIDE RECORDS SUMMARY | ~2019-03-21 | XMS | Encounter Summary ---
Demographics + + + | Address | [address] | | | [place] [address] | + + + | Home Phone [...] Organization | [facility] | | | and [...] Providers + +------+ + | Care Water Taxi Captain Name | Role | Phone | + +------+ + PCP | Unavailable | + +------+ + Encounter Details +--------+ + + + + | Date | Type | Department | Care Team | Description | +--------+ + + + + | 06/08/ | Hospital | [facility] | Morgan Woo MD | | | 2011 | Encounter | MED CTR XRAY [address] [place] | | | | | [place] | [address] [place], | | | | | [place] [address] | [place] [address] | | | | | [phone] | [phone] | | | | | | | [...] Performed At | + + + | [facility] Diagnostic Imaging Department | [facility] | | [address] [facility] | [facility] | | UNENHANCED CT PARANASAL SINUSES: | [...] Transcribed | | | Date/Time: 06/08/2011 14:15 Segment Block Layer: | | | <Electronically Signed by Neftaly Samuel MD> 06/08/111 | | + + + + + | Procedure Note | + + | Vitaly, Rad Conversion - 06/07/2013 4:42 PM Merged with [facility] | | Diagnostic Imaging Department | | [address] [facility] | | | | | | [...] | Transcribed Date/Time: 06/08/2011 14:15 | | Segment Block Layer: NADIA | | <Electronically Signed by Neftaly [...]
--- OUTSIDE RECORDS SUMMARY | ~2019-03-21 | XMS | Encounter Summary ---
Demographics + + + | Address | [address] | | | [place] [address] | + + + | Home Phone [...] Organization | [facility] | | | and [...] Providers + +------+ + | Care Gas Pump Attendant Name | Role | Phone | [...] | | | | | | | [address] | | +--------+--------+ + + + + [...] [place]. [place] | | | | | [phone] | [place] [address] | | +--------+ + + + + [...] for comparison only - no result from [place]. | | + + + + +---------+ + + | Performing | Address | City/State/Zipcode | Phone Number | | Organization | | | | + +---------+ + + | [facility] | | | | + +---------+ + + documented in this encounter Visit Diagnoses Not on filedocumented in this encounter"
--- OUTSIDE RECORDS SUMMARY | ~2019-03-21 | XMS | Encounter Summary ---
Demographics + + + | Address | [address] | | | [place] [address] | + + + | Home Phone [...] | [facility] | | | and [...] Team Providers + +------+ + | Care Journeyman Lineman Name | Role | Phone | + [...] Aniya JAMES | | | | | [phone] | [place] [address] | | +--------+ + + + + [...]
--- OUTSIDE RECORDS SUMMARY | ~2019-03-21 | XMS | Encounter Summary ---
Demographics + + + | Address | [address] | | | [place] [address] | + + + | Home Phone [...] | Organization | [facility] | | | and [...] Team Providers + +------+ + | Care Alarm Security Or Surveillance Monitor Name | Role | Phone | + +------+ + PCP | Unavailable | + +------+ + Encounter Details +--------+ + + + + | Date | Type | Department | Care Team | Description | +--------+ + + + + | 02/13/ | Imaging | [facility] | Provider, | | | 2018 | Exam | MED CTR EXTERNAL | MD [address] | | | | | IMAGING | [place] | | | | | [phone] | [place] [address] | | +--------+ + + + + [...]
--- OUTSIDE RECORDS SUMMARY | ~2019-03-21 | XMS | Encounter Summary ---
Demographics + + + | Address | [address] | | | [place] [address] | + + + | Home Phone | | + + + | Preferred Language | Unknown | + + + | Marital Status | | + + + | Catholic Affiliation | Unknown | + + + | Race | Unknown | + + + | Ethnic Group | Unknown | + + + Author + + + | Author | [facility] | | | and [place] | + + + | Organization | [facility] [...] Team Providers + +------+ + | Care Physician Support Coordinator Name | Role | Phone | [...] | | | Pulmonology | intermittent | [address] | [address] | | | | | asthma, | [place] | [place], | | | | | uncomplicate | WAY | [place] [address] | | | | | d | [place], | Phone: | | | | | Procedures | [place] [address] | [phone] | | | | | F/U 08/01> | Phone: | Fax: | | | | | DOS 09/22> | [phone] | [phone] | | | | | PEND UPDATED | Fax: | | | | | | AUTH FROM | [phone] | | | | | | [facility] | | | +--------+--------+ + + + + Encounter Details +--------+---------+ + + + | Date | Type | Department | Care Team | Description | +--------+---------+ + + + | 09/22/ | Office | [facility] | Duncan Bass, | Mild persistent | | 2018 | Visit | PULMONARY [address] | asthma with acute | | | | [place], | [place] | exacerbation | | | | [place] [address] | [address] | (Primary Dx) | | | | [phone] | | | +--------+---------+ + + + [...] Osteoporosis Pneumonia Pneumonia 07/30/2017 admitted overnight at [facility] Sensorineural hearing loss Thrombocytopenia (HCC) Vitamin [...]
--- OUTSIDE RECORDS SUMMARY | ~2019-03-21 | XMS | Encounter Summary ---
Demographics + + + | Address | [address] | | | [place] [address] | + + + | Home Phone | | + + + | Preferred Language | Unknown | + + + | Marital Status | | + + + | Anglican Affiliation | Unknown | + + + | Race | Unknown | + + + | Ethnic Group | Unknown | + + + Author + + + | Author | [facility] | | | and [place] | + + + | Organization | [facility] | | | and [...] Team Providers + +------+ + | Care Maintenance Coordinator Name | Role | Phone | [...] + + | 07/15/ | Office | [facility] | Caro Flores | Carpal tunnel | | 2016 | Visit | ORTHOPEDIC SURGERY | MD Mehul [address] [facility] | syndrome of right | | | | [address] [facility] | [place], [place] | wrist (Primary Dx) | | | | [place], [place] | [address] | | | | | [address] | | | | | | [phone] | | | +--------+---------+ + + + [...] - 07/16/2015 4:59 PM PDTSee soap note [id number].Electronically sign ed by Caro Flores MD at 07/16/2015 4:59 PM PDTCaro Flores MD - 4:58 PM PDT [facility] ORTHOPEDIC SURGERY [address] [place] [address] OFFICE NOTE CARO FLORES MD Patient: ALINE WHITLEY Admitting: MR #: [id number] LOC: PT TYPE: Adm Date: 07/16/2015 : 1955 Aline returns today for followup of her right upper extremity symptomatology. She has undergone an electrodiagnostic evaluation under the care of Dr. Simmons at the [facility] and was found to have moderate [...] Transcribed on 07/17/2015 11:51:58 by damian job# [id number] Confirmation #: [id number] cc: LANA MELCHOR MD documented in this encounter Plan of Treatment Not on filedocumented as of this encounter Visit Diagnoses + + | Diagnosis | + + | Carpal tunnel syndrome of right wrist - Primary Carpal tunnel syndrome | + + documented in this encounter
--- OUTSIDE RECORDS SUMMARY | ~2019-03-21 | XMS | Encounter Summary ---
Demographics + + + | Address | [address] | | | [place] [address] | + + + | Home Phone [...] + + | Author | and [facility] | | | and [place] | + + + | Organization | and [facility] | | [...] Team Providers + +------+ + | Care University Tutor Name | Role | Phone | + [...] | | | | pain Right | [address] | [address] | | | | | wrist pain | [address] | [address] | | | | | | [address] | [place] | | | | | | [place], | [address] Phone: | | | | | | [place] [address] | [phone] | | | | | | Phone: | Fax: | | | | | | [phone] | [phone] | | | | | | Fax: | | | | | | | [phone] | | +--------+--------+ + + + + Encounter Details +--------+---------+ + + + | Date | Type | Department | Care Team | Description | +--------+---------+ + + + | 05/11/ | Office | [facility] | Caro Albarado | Carpal tunnel | | 2015 | Visit | ORTHOPEDIC SURGERY | MD Mehul [address] [facility] | syndrome of right | | | | [address] [facility] | [place], [place] | wrist (Primary Dx) | | | | [place], [place] | [address] | | | | | [address] | | | | | | [phone] | | | +--------+---------+ + + + [...] - 05/11/2015 6:07 PM PSTSee soap note [id number].Electronically sign ed by Caro Albarado MD at 05/11/2015 6:07 PM PSTCaro Albarado MD - 6:06 PM PST [facility] [address] [place] [address] OFFICE NOTE CARO ALBARADO MD Patient: ALINE WHITLEY Admitting: MR #: [id number] LOC: PT TYPE: Adm Date: 05/11/2015 : 1955 IDENTIFICATION: Aline Whit[place] is a 60-year-old female who works for [employer]. She resides in [place], [place]. She sees Lana Conner for primary [...] [facility] after [place], [facility]/25/2015 and felt to have a nerve [...] 05/11/2015 18:06:50 Transcribed on 05/12/2015 08:35:31 by [facility] job# [id number] Confirmation #: [id number] cc: LANA CONNER MD documented in this encounter Plan of Treatment Not on filedocumented as of this encounter Visit Diagnoses + + | Diagnosis | + + | Carpal tunnel syndrome of right wrist - Primary Carpal tunnel syndrome | + + documented in this encounter
--- OUTSIDE RECORDS SUMMARY | ~2019-03-21 | XMS | Encounter Summary ---
Demographics + + + | Address | [address] | | | [place] [address] | + + + | Home Phone | | + + + | Preferred Language | Unknown | + + + | Marital Status | | + + + | Worship Affiliation | Unknown | + + + | Race | Unknown | + + + | Ethnic Group | Unknown | + + + Author + + + | Author | [facility] | | | and Keshawnana | + + + | Organization | [facility] | | | and [...] Team Providers + +------+ + | Care Master Police Detective Name | Role | Phone | + [...] + + | 12/06/ | Office | [facility] | Caro Flores | S/P orthopedic | | 2016 | Visit | ORTHOPEDIC SURGERY | MD Mehul [address] [place] [address] | surgery, follow-up | | | | [address] [facility] | [place] | exam (Primary Dx) | | | | [place], [place] | [address] | | | | | [address] | | | | | | [phone] | | | +--------+---------+ + + + [...] - 12/07/2015 8:56 AM PDTSee soap note [id number].Electronically sign ed by Caro Flores MD at 12/07/2015 8:56 AM PDTCaro Flores MD - 8:56 AM PDT [facility] ORTHOPEDIC SURGERY [address] [place] [address] OFFICE NOTE CARO FLORES MD Patient: ALINE WHITLEY Admitting: MR #: [id number] LOC: PT TYPE: Adm Date: 12/07/2015 : [...] of motion of the fingers with good shearing shed hand strength. ADVICE: Overall, Aline has done well. [...] Transcribed on 12/08/2015 09:24:15 by damian job# [id number] Confirmation #: [id number] cc: LANA MELCHOR DO documented in this encounter Plan of Treatment Not on filedocumented as of this encounter Visit Diagnoses + + | Diagnosis | + + | S/P orthopedic surgery, follow-up exam - Primary Follow-up examination, following | | other surgery | + + documented in this encounter
--- OUTSIDE RECORDS SUMMARY | ~2019-03-21 | XMS | Encounter Summary ---
Demographics + + + | Address | [address] | | | [place] [address] | + + + | Home Phone [...] | Organization | [facility] | | | and [place] [...] Team Providers + +------+ + | Care Associate Attorney Name | Role | Phone | + [...] + + | 11/01/ | Emergency | [facility] | Ronald Kasper MD | [facility] | | 2019 | | MED CTR EMER[facility]ENCY | [address] | (Primary Dx) | | | | CENTER [address] | [place] | | | | | [place] | [id number] | | | | | [address] | | | | | | [phone] | Reza Pittman, | | | | | | [address] | | | | | | [place] | | | | | | [phone] | | | | | | | [...] | | | IT, | | | MARIOSL | | | INE?MR | | | N: | | | [id number] | | | [id number] | | | riteri | | | [...] | | | St. | | | [place] | | | y | | | [...] | | | St. | | | [place] | | | y | | | [...] | | | St. | | | [place] | | | y | | | [...] | | | St. | | | [place] | | | y | | | [...] | | | St. | | | [place] | | | y H. | | [...] | | | St. | | | [place] | | | y H. | | [...] | | | St. | | | [place] | | | y H. | | [...] | | | digest | | | wse | | | tract | | | [...] | | | St. | | | [place] | | | y H. | | [...] | | | St. | | | [place] | | | y H. | | [...] | | | St. | | | [place] | | | y H. | | [...] | | | St. | | | [place] | | | y H. | | [...] | | | St. | | | [place] | | | y H. | | [...] | | | St. | | | [place] | | | y H. | | [...] | | | St. | | | [place] | | | y H. | | [...] | | | 2018 | | | [place] | | | | | | Health [...] | | | St. | | | [place] | | | y H. | | [...] MD | | | | | | Credit Collections Rep | | | al | | | [...] + | [facility] | [address] | [place] | [phone] | | [facility] | | [address] | | | - LABORATORY | | [...] [address] | [place] | [phone] | | [facility] | | [address] | | | - LABORATORY | | [...] ST. | [address] | [place] | [phone] | | [facility] | | [address] | | | - LABORATORY | | [...] + | [address] | [address] | [place] | [phone] | | [facility] | | [address] | | | - LABORATORY | | [...] use as of June 27, | | [facility] | | | | 2018. [...] ST. | [address] | [place], [place] | [phone] | | [facility] | | [address] | | | - LABORATORY | | [...] | 0.87 | 0.55 - 1.02 | [facility] | | | | | mg/dL | [facility] | | | | | | MEDICAL | | | | | | CENTER - | | | | | | LABORATORY | | + + + + + + | eGFR if not | >60Comment: GLOMERULAR | >=60 | [facility] | | | | FILTRATION | mL/min/1.73m2 | [facility] | | | MACANESE | RATE,ESTIMATED | | MEDICAL | | | | mL/min/1.87d3Bigj than | | CENTER - | | [...] [address] | [place] | [phone] | | [facility] | | [address] | | | - LABORATORY | | [...] [address] | [place] | [phone] | | [facility] | | [address] | | | - LABORATORY | | [...] | | | | | Intravenous, ONCE, [facility] 11/01/18 at | | PM PDT | | | | | 1620, For 1 dose | | | | | | + +--------+ +------+------+------+ +---+---+ | | | +---+---+ documented in this encounter
--- OUTSIDE RECORDS SUMMARY | ~2019-03-21 | XMS | Encounter Summary ---
Demographics + + + | Address | [address] | | | [place] [address] | + + + | Home Phone [...] | Organization | [facility] | [...] Providers + +------+ + | Care Machine Tester Name | Role | Phone | + +------+ + PCP | Unavailable | + +------+ + Encounter Details +--------+ + + + + | Date | Type | Department | Care Team | Description | +--------+ + + + + | 02/13/ | Imaging | [facility] | Provider, | | | 2018 | Exam | MED CTR EXTERNAL | MD Sosa [address] | | | | | IMAGING | [place] | | | | | [phone] | [place] [address] | | +--------+ + + + + [...]
--- OUTSIDE RECORDS SUMMARY | ~2019-03-21 | XMS | Encounter Summary ---
Demographics + + + | Address | [address] | | | [place] [address] | + + + | Home Phone [...] Organization | [facility] | | | and [place] [...] Providers + +------+ + | Care Supervisor Network Control Operators Name | Role | Phone | + +------+ + PCP | Unavailable | + +------+ + Encounter Details +--------+ + + + + | Date | Type | Department | Care Team | Description | +--------+ + + + + | 12/19/ | Emergency | [facility] | Reza Lira MD | Forehead contusion, | | 2017 | [facility] | [address] | initial encounter; | | | | EMERGENCY CENTER | [place] [address] | Left shoulder | | | | [address] | [phone] | strain, initial | | | | [place], [place] | | encounter; | | | | [address] | | Fingernail injury, | | | | [phone] | | left, initial | | | [...] Conversion - 12/12/2018 11:52 PM PDT YOSELYN OLVERAT1993567 years | | FemaleCT HEAD WO CONTRAST12/19/2016 [...]
--- OUTSIDE RECORDS SUMMARY | ~2019-03-21 | XMS | Encounter Summary ---
Demographics + + + | Address | [address] | | | [place] [address] | + + + | Home Phone | | + + + | Preferred Language | Unknown | + + + | Marital Status | | + + + | Tenriism Affiliation | Unknown | + + + | Race | Unknown | + + + | Ethnic Group | Unknown | + + + Author + + + | Author | [facility] | | | and Keshawnana | + + + | Organization | [facility] | [...] Team Providers + +------+ + | Care Show Design Supervisor Name | Role | Phone | [...] + + | 11/01/ | Emergency | [facility] | Ronald Kasper MD | [facility] | | 2019 | | MED CTR EMERGENCY | [address] | (Primary Dx) | | | | CENTER [address] | [place] | | | | | [place] | [phone] | | | | | [address] | | | | | | [phone] | Reza Pittman, | | | | | | [address] | | | | | | [place] | | | | | | [id number] | | | | | | | [...] | | | N: | | | [id number] | | | [id number] | | | riteri | | | [...] | | | St. | | | [place] | | | y | | | [...] | | | St. | | | [place] | | | y | | | [...] | | | St. | | | [place] | | | y | | | [...] | | | St. | | | [place] | | | y | | | [...] | | | St. | | | [place] | | | y H. | | [...] | | | St. | | | [place] | | | y H. | | [...] | | | St. | | | [place] | | | y H. | | [...] | | | St. | | | [place] | | | y H. | | [...] | | | St. | | | [place] | | | y H. | | [...] | | | St. | | | [place] | | | y H. | | [...] | | | St. | | | [place] | | | y H. | | [...] | | | St. | | | [place] | | | y H. | | [...] | | | St. | | | [place] | | | y H. | | [...] | | | St. | | | [place] | | | y H. | | [...] | | | 2018 | | | [place] | | | | | | Health [...] | | | St. | | | [place] | | | y H. | | [...] MD | | | | | | Human Resources Office Manager | | | al | | [...] [address] | [place] | [phone] | | [facility] | | [address] | | | - LABORATORY | | [...] [address] | [place] | [phone] | | [facility] | | [address] | | | - LABORATORY | | [...] ST. | [address] | [place] | [phone] | | [facility] | | [address] | | | - LABORATORY | | [...] + | [address] | [address] | [place] | [phone] | | [facility] | | [address] | | | - LABORATORY | | [...] use as of June 27, | | [facility] | | | | 2018. Check reference [...] ST. | [address] | [place], [place] | [phone] | | [facility] | | [address] | | | - LABORATORY | | [...] | 0.87 | 0.55 - 1.02 | [facility] | | | | | mg/dL | [facility] | | | | | | MEDICAL | | | | | | CENTER - | | | | | | LABORATORY | | + + + + + + | eGFR if not | >60Comment: GLOMERULAR | >=60 | [facility] | | | | FILTRATION | mL/min/1.73m2 | [facility] | | | INDONESIAN | RATE,ESTIMATED | | MEDICAL | | | | mL/min/1.33z9Aqme than | | CENTER - | | [...] | | | | | | [facility] | | | | | | MEDICAL [...] [address] | [place] | [phone] | | [facility] | | [address] | | | - LABORATORY | | [...] [address] | [place] | [phone] | | [facility] | | [address] | | | - LABORATORY | | [...] | | | | | Intravenous, ONCE, [facility] 11/01/18 at | | PM PDT | | | | | 1620, For 1 dose | | | | | | + +--------+ +------+------+------+ +---+---+ | | | +---+---+ documented in this encounter
--- OUTSIDE RECORDS SUMMARY | ~2019-03-21 | XMS | Encounter Summary ---
Demographics + + + | Address | [address] | | | [place] [address] | + + + | Home Phone | | + + + | Preferred Language | Unknown | + + + | Marital Status | | + + + | Advent Affiliation | Unknown | + + + | Race | Unknown | + + + | Ethnic Group | Unknown | + + + Author + + + | Author | [facility] | | | and Keshawnana | + + + | Organization | [facility] [...] Team Providers + +------+ + | Care Vault Person Name | Role | Phone | + [...] | | | | | pain | [address] | [address] | | | | | | [place] | SHON | | | | | | WAY | [place] | | | | | | [place], | [address] Phone: | | | | | | [place] [address] | [phone] | | | | | | Phone: | Fax: | | | | | | [phone] | [phone] | | | | | | Fax: | | | | | | | [phone] | | +--------+--------+ + + + + Encounter Details +--------+---------+ + + + | Date | Type | Department | Care Team | Description | +--------+---------+ + + + | 01/18/ | Office | [facility] | Quirino Olson | Right knee pain, | | 2018 | Visit | ORTHOPEDIC SURGERY | [address] | unspecified | | | | [address] [facility] | [place] | chronicity (Primary | | | | [place], [place] | [place] [address] | Dx); Primary | | | | [address] | [phone] | osteoarthritis of | | | | [phone] | | right knee; Acute | | [...]
--- OUTSIDE RECORDS SUMMARY | ~2019-03-21 | XMS | Encounter Summary ---
Demographics + + + | Address | [address] | | | [place] [address] | + + + | Home Phone [...] | [facility] | | [...] Team Providers + +------+ + | Care Boiling Tub Operator Name | Role | Phone | [...] | | | | | Procedures | [address] | [address] | | | | | NEW PT | [place] | [place], | | | | | CONSULT | [facility] | [place] [address] | | | | | | BILL, | Phone: | | | | | | [place] [address] | [phone] | | | | | | Phone: | Fax: | | | | | | [phone] | [phone] | | | | | | Fax: | | | | | | | [phone] | | +--------+--------+ + + + + [...] | (Primary Dx); | | | | [place], | [place], [place] | Asthma, unspecified | | | | [place] [address] | [address] | asthma severity, | | | | [phone] | | unspecified whether | | | [...] ou have any questions. Talk to your investigation division sergeant regarding the use of this medicine in children. Special care may be needed. What side effects may I notice from receiving this medicine? Side effects that you should report to your doctor or health director career services as soon as p ossible: allergic reactions [...] attention (report to your doctor or health director career services if they continue or are bothersome): cough [...] this medicine? Tell your doctor or health director career services if your symptoms do not improve. Do [...] [facility]. They have not completed pulmonary rehabilitation in [...] Tunnel Release; Surgeon: Ramon Stokes MD; Location: [facility] MAIN OR CHOLECYSTECTOMY HYSTERECTOMY endometriosis SINUS SURGERY [...]
--- OUTSIDE RECORDS SUMMARY | ~2019-03-21 | XMS | Encounter Summary ---
Demographics + + + | Address | [address] | | | [place] [address] | + + + | Home Phone [...] [facility] | [...] Team Providers + +------+ + | Care Salt Plant Operator Name | Role | Phone | [...] | | | | | | | GA REVISE | | | | | | [...] Stokes | Right Carpal Tunnel | | 2015 | | MED CTR OR INTRA OP | MD Ginette Carver | Release | | | | [address] | [place] | | | | | [place] | [address] | | | | | [address] | | | | | | [phone] | | | +--------+---------+ + + + [...] mg of acetaminophen (Tylenol) per day. Hydrocodone-acetaminophen ([place] ) and Oxycodone-acetaminophen (Percocet) have 325 mg [...] hand or fingers Fever over 100.4F (38C) 8763-3139 [employer]. [address] [place] [address]. All righ ts reserved. This information is [...] [address] | [place] | [phone] | | [facility] | | [address] | | | - LABORATORY | | [...] + | [facility] | [address] | [place] | [phone] | | [facility] | | [address] | | | - LABORATORY | | [...] [address] | [place] | [phone] | | [facility] | | [address] | | | - LABORATORY | | [...] | | | FILTRATION | mL/min/1.73m2 | [facility] | | | EMIRATI | RATE,ESTIMATED | | MEDICAL | | | | mL/min/1.35e8Dpuh than | | CENTER - | | [...] [address] | [place] | [phone] | | [facility] | | [address] | | | - LABORATORY | | [...] [address] | [place] | [phone] | | [facility] | | [address] | | | - LABORATORY | | [...] [address] | [place] | [phone] | | [facility] | | [address] | | | - LABORATORY | | [...]
--- OUTSIDE RECORDS SUMMARY | ~2019-03-21 | XMS | Encounter Summary ---
Demographics + + + | Address | [address] | | | [place] [address] | + + + | Home Phone [...] Organization | [facility] | [...] Team Providers + +------+ + | Care Business Department Chair Name | Role | Phone | + [...] | | | Pulmonology | intermittent | [address] | [address] | | | | | asthma, | [place] | [place], | | | | | uncomplicate | WAY | [place] [address] | | | | | d | [place]ILL, | Phone: | | | | | Procedures | [place] [address] | [phone] | | | | | FU | Phone: | Fax: | | | | | | [phone] | [phone] | | | | | | Fax: | | | | | | | [phone] | | +--------+--------+ + + + + Encounter Details +--------+---------+ + + + | Date | Type | Department | Care Team | Description | +--------+---------+ + + + | 10/19/ | Office | [facility] | Duncan Bass, | Mild persistent | | 2018 | Visit | PULMONARY [address] | asthma without | | | | [place], | [place], [place] | complication | | | | [place] [address] | [address] | (Primary Dx); Need | | | | [phone] | | for pneumococcal | | | [...] more than every 4 hours, contact your [facility] provider or seek immediate medical attention. [...] don't already have one, talk to your [facility] are provider about developing your own [...] turning ching or blue Date Last Reviewed: 08/29/201619993327-2910 [employer]. [address] [place] [address]. All righ ts reserved. This information is [...] feet at their own pace on level [facility] nd before becoming symptomatic. They are [...] Osteoporosis Pneumonia Pneumonia 07/30/2017 admitted overnight at [facility] Sensorineural hearing loss Thrombocytopenia (HCC) Vitamin [...]
--- OUTSIDE RECORDS SUMMARY | ~2019-03-21 | XMS | Encounter Summary ---
Demographics + + + | Address | [address] | | | [place] [address] | + + + | Home Phone [...] Organization | [facility] [...] + +------+ + | Care Director Of Preclinical Research Name | Role | Phone | + [...] + + | 01/13/ | Emergency | [facility] | Ronald Kasper MD | Other ascites | | 2019 | | MED CTR EMERGENCY | [address] | (Primary Dx); | | | | CENTER [address] | [place], [place] | Abdominal pain, | | | | [place], [place] | [address] | unspecified | | | | [address] | | abdominal location | | | | [phone] | | | +--------+ + + + [...] phone call by then. Follow up with [facility] provider as needed. Do not drink or drive while on the pain medication. AttachmentsThe following attachments cannot be sent through Care Everywhere.Ascites (Englis h)Acetaminophen; Hydrocodone tablets or capsules (Japanese)documented in this encounter Medications at Time of [...] | | | N: | | | [id number] | | | [id number] | | | riteri | | | [...] | | | St. | | | [place] | | | y | | | [...] | | | St. | | | [place] | | | y | | | [...] | | | St. | | | [place] | | | y | | | [...] | | | St. | | | [place] | | | y | | | [...] | | | St. | | | [place] | | | y H. | | | [place] | | | [place] | | | Emerge | | | ncy | | | Chief | | | Compla | | | int: | | | SHAKY | | | Sep | | | 1, | | | 2019 | | | [facility] | | | [facility] | | | [place] | | | y H. | | [...] | | | St. | | | [place] | | | y H. | | [...] | | | St. | | | [facility] | | | [facility] | | | [...] | | | St. | | | [place] | | | y H. | | [...] | | | St. | | | [place] | | | y H. | | [...] | | | St. | | | [place] | | | y H. | | [...] | | | St. | | | [place] | | | y H. | | [...] | | | St. | | | [place] | | | y H. | | [...] | | | St. | | | [place] | | | y H. | | [...] | | | St. | | | [place] | | | y H. | | [...] | | | 2018 | | | [place] | | | | | | Health [...] | | | St. | | | [place] | | | y H. | | [...] MD | | | | | | Lock Stitch Channeler | | | al | | | [...] | | | N, | | | ROTARY SOIL STABILIZER OPERATOR-C | | | Nurse | | [...] | | | [id number] | | | [id number] | | | 09 | | | [...] [address] | [place] | [phone] | | [facility] | | [address] | | | - LABORATORY | | [...] + | Performing | Address | City/State/Unm Cancer Centercode | Phone Number | | Organization | | | | + + + + + | ELENO ZAFAR. | [address] | [place] | [phone] | | [facility] | | [address] | | | - LABORATORY | | [...] + | [facility] | [address] | [place] | [phone] | | [facility] | | [address] | | | - LABORATORY | | [...] | | | | | mmol/L | [facility] | | | | | [...] mL/min/1.73m2 | [facility] | | | [place] | RATE,ESTIMATED | | MEDICAL | | | | mL/min/1.58m9Mqxg than | | CENTER - | | [...] [address] | [place] | [phone] | | [facility] | | [address] | | | - LABORATORY | | [...] [address] | [place] | [phone] | | [facility] | | [address] | | | - LABORATORY | | [...] | | | | | Patient Address: [address] [place] [address] Rd | | | | | | | [address], [place] [address], | | | | | | + + + + +------+------+ +---+---+ | | | +---+---+ documented in this encounter
--- OUTSIDE RECORDS SUMMARY | ~2019-03-21 | XMS | Encounter Summary ---
Demographics + + + | Address | [address] | | | [place] [address] | + + + | Home Phone [...] + | Organization | [facility] | | | [...] Team Providers + +------+ + | Care Insert Cutter Name | Role | Phone | + [...] + + | 10/13/ | Anesthesia | [facility] | Asher Bliss MD | | | 2015 | Event | MED CTR OR INTRA OP | [address] | | | | | [address] | [place] | | | | | [place] | [address] | | | | | [address] | | | | | | [phone] | | | +--------+ + + + [...] + + | Periph | 10/14/15; 06; [id number] | 10/14/15657 by | 10/14/15 100 by [...]
--- OUTSIDE RECORDS SUMMARY | ~2019-03-21 | XMS | Encounter Summary ---
Demographics + + + | Address | [address] | | | [place] [address] | + + + | Home Phone [...] Organization | [facility] | | | and [place] [...] Team Providers + +------+ + | Care Torch Straightener And Heater Name | Role | Phone | + [...] + + | 08/13/ | Emergency | [facility] | Jeffrey Augustin | Closed fracture of | | 2018 | | MED CTR EMERGENCY | MD Anjum [address] | multiple ribs of | | | | CENTER [address] | [address] [place] | left side, initial | | | | [place] | [place] [address] | encounter (Primary | | | | [address] | [phone] | Dx); Acute pain; | | | | [phone] | | Fall, initial | | | [...] report was | | | sent by [employer] with no significant discrepancy. | | | [...] | A preliminary report was sent by [employer] with no significant | | discrepancy. | [...] | | | | | | [employer] | | | | | [...] ST. | [address] | [place] | [phone] | | [facility] | | [address] | | | - LABORATORY | | [...] + | [facility] | [address] | [place] | [phone] | | [facility] | | [address] | | | - LABORATORY | | [...] mL/min/1.73m2 | [facility] | | | [place] | RATE,ESTIMATED | | MEDICAL | | | | mL/min/1.57f0Rszd than | | CENTER - | | [...] + | [facility] | [address] | [place], [place] | [phone] | | [facility] | | [address] | | | - LABORATORY | | [...] + | [facility] [facility] | [address] | [place] | [phone] | | [facility] | | [address] | | | - LABORATORY | | [...] | | | | JOSELUIS PINON MD ([id number]) | | | | | | on [...]
--- OUTSIDE RECORDS SUMMARY | ~2019-03-21 | XMS | Encounter Summary ---
Demographics + + + | Address | [address] | | | [place] [address] | + + + | Home Phone [...] Organization | [facility] [place] [...] Team Providers + +------+ + | Care Parcel Carrier Name | Role | Phone | + [...] | | | | pain Right | [address] | [address] | | | | | wrist pain | [address] | [address] | | | | | | [place] | [place] | | | | | | [place], | [address] Phone: | | | | | | [place] [address] | [phone] | | | | | | Phone: | Fax: | | | | | | [phone] | [phone] | | | | | | Fax: | | | | | | | [phone] | | +--------+--------+ + + + + Encounter Details +--------+---------+ + + + | Date | Type | Department | Care Team | Description | +--------+---------+ + + + | 10/07/ | Office | [facility] | Quirino Olson | Hepatic cirrhosis, | | 2015 | Visit | ORTHOPEDIC SURGERY | ANN Steen [address] | unspecified hepatic | | | | [address] [facility] | Caio Nunez | cirrhosis type (HCC) | | | | [place], [place] | [place] [address] | (Primary Dx); | | | | [address] | [phone] | Diuretics causing | | | | [phone] | | adverse effect in | | [...]
--- OUTSIDE RECORDS SUMMARY | ~2019-03-21 | XMS | Encounter Summary ---
Demographics + + + | Address | [address] | | | [place] [address] | + + + | Home Phone | | + + + | Preferred Language | Unknown | + + + | Marital Status | | + + + | Buddhist Affiliation | Unknown | + + + | Race | Unknown | + + + | Ethnic Group | Unknown | + + + Author + + + | Author | [facility] | | | and [place] | + + + | Organization | [facility] | | | and [...] Team Providers + +------+ + | Care Ordering Machine Operator Name | Role | Phone [...] | | | | pain Right | [address] | [address] | | | | | wrist pain | [address] | [address] | | | | | | WAY | [place] | | | | | | [place], | [address] Phone: | | | | | | [place] [address] | [phone] | | | | | | Phone: | Fax: | | | | | | [phone] | [phone] | | | | | | Fax: | | | | | | | [phone] | | +--------+--------+ + + + + Encounter Details +--------+---------+ + + + | Date | Type | Department | Care Team | Description | +--------+---------+ + + + | 05/11/ | Office | [facility] | Caro Albarado | Carpal tunnel | | 2015 | Visit | ORTHOPEDIC SURGERY | MD Mehul [address] [facility] | syndrome of right | | | | [address] [facility] | [place], [place] | wrist (Primary Dx) | | | | [place], [place] | [address] | | | | | [address] | | | | | | [phone] | | | +--------+---------+ + + + [...] - 05/11/2015 6:07 PM PSTSee soap note [id number].Electronically sign ed by Caro Albarado MD at 05/11/2015 6:07 PM PSTCaro Albarado MD - 6:06 PM PST [facility] [address] [place] [address] OFFICE NOTE CARO ALBARADO MD Patient: ALINE WHITLEY Admitting: MR #: [id number] LOC: PT TYPE: Adm Date: 05/11/2015 : 1955 IDENTIFICATION: Aline Whitley is a 60-year-old female who works for [employer]. She resides in [place], [place]. She sees Lana Conner for primary [...] was seen in the emergency room at [facility] on the day after [place], 04/25/2015 and felt to have a nerve [...] 05/11/2015 18:06:50 Transcribed on 05/12/2015 08:35:31 by [facility] job# [id number] Confirmation #: [id number] cc: LANA CONNER MD documented in this encounter Plan of Treatment Not on filedocumented as of this encounter Visit Diagnoses + + | Diagnosis | + + | Carpal tunnel syndrome of right wrist - Primary Carpal tunnel syndrome | + + documented in this encounter
--- OUTSIDE RECORDS SUMMARY | ~2019-03-21 | XMS | Encounter Summary ---
Demographics + + + | Address | [address] | | | [place] [address] | + + + | Home Phone [...] | Organization | [facility] [...] Team Providers + +------+ + | Care Spring Internship Name | Role | Phone | + [...] 2015 | | ORTHOPEDIC SURGERY | MD Mehlu [address] | | | | | [address] [facility] | [place] | | | | | [place] | [address] | | | | | [address] | | | | | | [phone] | | | +--------+ + + + [...]
--- OUTSIDE RECORDS SUMMARY | ~2019-03-21 | XMS | Encounter Summary ---
Demographics + + + | Address | [address] | | | [place] [address] | + + + | Home Phone [...] Organization | [facility] | | | and [place] | [...] Team Providers + +------+ + | Care Advisor Consultant Name | Role | Phone | + +------+ + PCP | Unavailable | + +------+ + Encounter Details +--------+ + + + + | Date | Type | Department | Care Team | Description | +--------+ + + + + | 02/13/ | Imaging | [facility] | Provider, | | | 2018 | Exam | MED CTR EXTERNAL | MD Sosa [address] | | | | | IMAGING | Aniya JAMES | | | | | [phone] | [place] [address] | | +--------+ + + + + [...]
--- OUTSIDE RECORDS SUMMARY | ~2019-03-21 | XMS | Encounter Summary ---
Demographics + + + | Address | [address] | | | [place] [address] | + + + | Home Phone [...] + | Organization | [facility] | | | [...] Providers + +------+ + | Care Inspector Rag Sorting Name | Role | Phone | + [...] + | 04/25/ | Emergency | [facility] | Reza Pittman, | Paresthesias in | | 2015 | | MED CTR EMERGENCY | MD [address] | right hand (Primary | | | | CENTER [address] | [place] | Dx); Acute wrist | | | | [place] | [address] | pain, right | | | | [address] | | | | | | [phone] | | | +--------+ + + + [...] cannot be sent through Care Everywhere.PARAESTHESIAS ( SURINAMESE)documented in this encounter Medications at Time of [...]
--- OUTSIDE RECORDS SUMMARY | ~2019-03-21 | XMS | Encounter Summary ---
Demographics + + + | Address | [address] | | | [place] [address] | + + + | Home Phone [...] Organization | [facility] | | [...] Team Providers + +------+ + | Care Structural Steel Trades Worker Name | Role | Phone | [...] | SR | | | | | [phone] | | | +--------+ + + + [...]
--- OUTSIDE RECORDS SUMMARY | ~2019-03-21 | XMS | Encounter Summary ---
Demographics + + + | Address | [address] | | | [place] [address] | + + + | Home Phone [...] [facility] | | | and [place] [...] Team Providers + +------+ + | Care Specification Manager Name | Role | Phone | [...] Aniya JAMES | | | | | [phone] | [place] [address] | | +--------+ + + + + [...]
--- OUTSIDE RECORDS SUMMARY | ~2019-03-21 | XMS | Encounter Summary ---
Demographics + + + | Address | [address] | | | [place] [address] | + + + | Home Phone [...] Organization | [facility] | | | and [place] [...] Team Providers + +------+ + | Care Fitting Room Supervisor Name | Role | Phone [...] | | | | | | | [address] | | +--------+--------+ + + + + [...] [place]. E[place]KA | | | | | [phone] | [place] [address] | | +--------+ + + + + [...] for comparison only - no result from [place]. | | + + + + +---------+ + + | Performing | Address | City/State/Zipcode | Phone Number | | Organization | | | | + +---------+ + + | [facility] | | | | + +---------+ + + documented in this encounter Visit Diagnoses Not on filedocumented in this encounter"
--- OUTSIDE RECORDS SUMMARY | ~2019-03-21 | XMS | Encounter Summary ---
Demographics + + + | Address | [address] | | | [place] [address] | + + + | Home Phone [...] + | Organization | [facility] | [...] Team Providers + +------+ + | Care Host/Hostess Head Name | Role | Phone | + [...] Aniya JAMES | | | | | [phone] | [place] [address] | | +--------+ + + + + [...]
--- OUTSIDE RECORDS SUMMARY | ~2019-03-21 | XMS | Encounter Summary ---
Demographics + + + | Address | [address] | | | [place] [address] | + + + | Home Phone [...] [address] [place] | | | and [place] | [...] Team Providers + +------+ + | Care Junior Assistant Manager Name | Role | Phone | + +------+ + PCP | Unavailable | + +------+ + Encounter Details +--------+ + + + + | Date | Type | Department | Care Team | Description | +--------+ + + + + | 02/13/ | Imaging | [facility] | Provider, | | | 2018 | Exam | MED CTR EXTERNAL | MD Sosa [address] | | | | | IMAGING | Aniya JAMES | | | | | [phone] | [place] [address] | | +--------+ + + + + [...]
--- OUTSIDE RECORDS SUMMARY | ~2019-03-21 | XMS | Encounter Summary ---
Demographics + + + | Address | [address] | | | [place] [address] | + + + | Home Phone [...] | [facility] | | | and [...] Team Providers + +------+ + | Care Lube Attendant Name | Role | Phone | [...] | | Pulmonology | (dyspnea on | [address] | [address] | | | | | exertion) | [place] | [place], | | | | | Procedures | WAY | [place] [address] | | | | | F/U | [place], | Phone: | | | | | | [place] [address] | [phone] | | | | | | Phone: | Fax: | | | | | | [phone] | [phone] | | | | | | Fax: | | | | | | | [phone] | | +--------+--------+ + + + + Encounter Details +--------+---------+ + + + | Date | Type | Department | Care Team | Description | +--------+---------+ + + + | 02/28/ | Office | [facility] | Duncan Bass, | Mild intermittent | | 2017 | Visit | PULMONARY [address] | MD [address] | asthma without | | | | [place], | [place], [place] | complication | | | | [place] [address] | [address] | | | | | [phone] | | | +--------+---------+ + + + [...] more than every 4 hours, contact your [facility] provider or seek immediate medical [...] not already have one, talk to your [facility] provider about developing a personalized [...] turning ching or blue Date Last Reviewed: 04/01/201519997677-2063 [employer]. [address] [place] [address]. All righ ts reserved. This information is [...]
--- OUTSIDE RECORDS SUMMARY | ~2019-03-21 | XMS | Encounter Summary ---
Demographics + + + | Address | [address] | | | [place] [address] | + + + | Home Phone [...] + | Organization | [facility] [...] Team Providers + +------+ + | Care Transportation Equipment Painter Name | Role | Phone | [...] Aniya JAMES | | | | | [phone] | [place] [address] | | +--------+ + + + + [...] for comparison only - no result from [place]. | | + + + + +---------+ + + | Performing | Address | City/State/Zipcode | Phone Number | | Organization | | | | + +---------+ + + | [facility] | | | | + +---------+ + + documented in this encounter Visit Diagnoses Not on filedocumented in this encounter"
--- OUTSIDE RECORDS SUMMARY | ~2019-03-21 | XMS | Encounter Summary ---
Demographics + + + | Address | [address] | | | [place] [address] | + + + | Home Phone [...] [facility] | | | and [...] Team Providers + +------+ + | Care Development And Housing Director Name | Role | Phone | [...] [address] | | | | | [place], | [place] | | | | | [place] [address] | [address] | | | | | [phone] | | | +--------+ + + + [...]
--- OUTSIDE RECORDS SUMMARY | ~2019-03-21 | XMS | Encounter Summary ---
Demographics + + + | Address | [address] | | | [place] [address] | + + + | Home Phone [...] | Organization | [facility] [...] Providers + +------+ + | Care Maintenance Representative Name | Role | Phone | + +------+ + PCP | Unavailable | + +------+ + Encounter Details +--------+ + + + + | Date | Type | Department | Care Team | Description | +--------+ + + + + | 08/14/ | Hospital | [facility] | Russ | VIR HEP NEC W/O COMA | | 2003 | Encounter | [facility] | MD Uma [address] | W HEP C LADI ([facility]) | | | | CLINICAL DECISION | Kaitlynn [place] | | | | | [address] | [place] [address] | | | | | [place], [place] | [phone] | | | | | [address] | | | | | | [phone] | | | +--------+ + + + [...]
--- OUTSIDE RECORDS SUMMARY | ~2019-03-21 | XMS | Encounter Summary ---
Demographics + + + | Address | [address] | | | [place] [address] | + + + | Home Phone [...] | Organization | [facility] | | | and [place] [...] Team Providers + +------+ + | Care Cloth Printing Inspector Name | Role | Phone | [...] + + | 11/07/ | Emergency | [facility] | Velia Smith, | Inflammatory | | 2018 | | MED CTR EMERGENCY | [address] | arthritis (Primary | | | | CENTER [address] | [facility] [place] | Dx); Acute pain of | | | | [place] | [place] [address] | right knee | | | | [address] | [phone] | | | | | [phone] | | | | | | | Kermit Silverio MD | | | | | | [address] | | | | | | [place] | | | | | | [address] | | | | | | | [...] Care Everywhere.Knee Pain (Engl orion)Osteoarthritis, What Is (Grenadian)documented in this encounter Medications at Time of [...] [address] | [place] | [phone] | | [facility] | | [address] | | | - LABORATORY | | [...] [address] | [place] | [phone] | | [facility] | | [address] | | | - LABORATORY | | [...] [address] | [place] | [phone] | | [facility] | | [address] | | | - LABORATORY | | [...] | % | [facility] | | | Macro/Hayes | | | [facility] | | [...] + | [address] | [address] | [place], [place] | [phone] | | [facility] | | [address] | | | - LABORATORY | | [...] | to the ordering provider by the sterile processing technologist immediately | | | following the [...] the ordering provider by the | | sterile processing technologist immediately following the exam. | | [...] [address] | [place] | [phone] | | [facility] | | [address] | | | - LABORATORY | | [...] | [facility] | [address] | [place] | [phone] | | [facility] | | [address] | | | - LABORATORY | | [...] [address] | [place] | [phone] | | [facility] | | [address] | | | - LABORATORY | | [...] ST. | [address] | [place] | [phone] | | [facility] | | [address] | | | - LABORATORY | | [...] | [facility] | [address] | [place] | [phone] | | [facility] | | [address] | | | - LABORATORY | | [...] | [facility] | [address] | [place] | [phone] | | [facility] | | [address] | | | - LABORATORY | | [...] mL/min/1.73m2 | [facility] | | | [place] | RATE,ESTIMATED | | MEDICAL | | | | mL/min/1.19s8Jpyh than | | CENTER - | | [...] [address] | [place] | [phone] | | [facility] | | [address] | | | - LABORATORY | | [...] [address] | [place] | [phone] | | [facility] | | [address] | | | - LABORATORY | | [...]
--- OUTSIDE RECORDS SUMMARY | ~2019-03-21 | XMS | Encounter Summary ---
Demographics + + + | Address | [address] | | | [place] [address] | + + + | Home Phone [...] | Organization | [facility] | | | and [place] [...] + +------+ + | Care Director Of Flight Operations Name | Role | Phone | + [...] Release | | | | [address] | [place] | | | | | [place] | [id number] | | | | | [address] | | | | | | [phone] | | | +--------+---------+ + + + [...] mg of acetaminophen (Tylenol) per day. Hydrocodone-acetaminophen ([place] ) and Oxycodone-acetaminophen (Percocet) have 325 mg [...] hand or fingers Fever over 100.4F (38C) 6036-9810 [employer]. [address] [place] [address]. All righ ts reserved. This information is [...] [address] | [place] | [phone] | | [facility] | | [address] | | | - LABORATORY | | [...] + | [facility] | [address] | [place] | [phone] | | [facility] | | [address] | | | - LABORATORY | | [...] [address] | [place] | [phone] | | [facility] | | [address] | | | - LABORATORY | | [...] | | | FILTRATION | mL/min/1.73m2 | [facility] | | | [place] | RATE,ESTIMATED | | MEDICAL | | | | mL/min/1.35s8Qtyt than | | CENTER - | | [...] [address] | [place] | [phone] | | [facility] | | [address] | | | - LABORATORY | | [...] [address] | [place] | [phone] | | [facility] | | [address] | | | - LABORATORY | | [...] [address] | [place] | [phone] | | [facility] | | [address] | | | - LABORATORY | | [...]
--- OUTSIDE RECORDS SUMMARY | ~2019-03-21 | XMS | Encounter Summary ---
Demographics + + + | Address | [address] | | | [place] [address] | + + + | Home Phone | | + + + | Preferred Language | Unknown | + + + | Marital Status | | + + + | Baptism Affiliation | Unknown | + + + | Race | Unknown | + + + | Ethnic Group | Unknown | + + + Author + + + | Author | [facility] | | | and [place] | + + + | Organization | [facility] [...] Team Providers + +------+ + | Care Word Processing Specialist Name | Role | Phone | + +------+ + PCP | Unavailable | + +------+ + Encounter Details +--------+ + + + + | Date | Type | Department | Care Team | Description | +--------+ + + + + | 02/13/ | Imaging | [facility] | Provider, | | | 2018 | Exam | MED CTR EXTERNAL | MD Sosa [address] | | | | | IMAGING | Aniya JAMES | | | | | [phone] | [place] [address] | | +--------+ + + + + [...]
--- OUTSIDE RECORDS SUMMARY | ~2019-03-21 | XMS | Encounter Summary ---
Demographics + + + | Address | [address] | | | [place] [address] | + + + | Home Phone [...] Author | [facility] | | | and [place] | + + + | Organization | [facility] | | [...] Team Providers + +------+ + | Care Photo Tube Assembler Name | Role | Phone | [...] + + | 10/13/ | Hospital | [facility] | Ramon Stokes | Carpal tunnel | | 2016 | Encounter | MED CTR OR INTRA OP | MD Mehul [address] [place] [address] | syndrome on right | | | | [address] | [place] | (Primary Dx); | | | | [place] | [address] | Hepatic cirrhosis, | | | | [address] | | unspecified hepatic | | | | [phone] | | cirrhosis type | | | [...] mg of acetaminophen (Tylenol) per day. Hydrocodone-acetaminophen (Liberal ) and Oxycodone-acetaminophen (Percocet) have 325 mg [...] hand or fingers Fever over 100.4F (38C) 7008-6602 The [employer]. [address] [place] [address]. All righ ts reserved. This information is [...] ST. | [address] | [place], [place] | [phone] | | [facility] | | [address] | | | - LABORATORY | | [...] [address] | [place] | [phone] | | [facility] | | [address] | | | - LABORATORY | | [...] [address] | [place] | [phone] | | [facility] | | [address] | | | - LABORATORY | | [...] | 0.91 | 0.60 - 1.30 | [facility] | | | | | mg/dL | [facility] | | | | | | MEDICAL | | | | | | CENTER - | | | | | | LABORATORY | | + + + + + + | eGFR if not | >60Comment: GLOMERULAR | >=60 | [place] | | | | FILTRATION | mL/min/1.73m2 | [facility] | | | [place] | RATE,ESTIMATED | | MEDICAL | | | | mL/min/1.03f7Ludb than | | CENTER - | | [...] + | [facility] | [address] | [place] | [phone] | | [facility] | | [address] | | | - LABORATORY | | [...] [address] | [place] | [phone] | | [facility] | | [address] | | | - LABORATORY | | [...] [address] | [place] | [phone] | | [facility] | | [address] | | | - LABORATORY | | [...]
--- OUTSIDE RECORDS SUMMARY | ~2019-03-21 | XMS | Encounter Summary ---
Demographics + + + | Address | [address] | | | [place] [address] | + + + | Home Phone [...] | [facility] | | [...] Team Providers + +------+ + | Care Exchange Trouble Shooter Name | Role | Phone | + [...] Aniya JAMES | | | | | [phone] | [place] [address] | | +--------+ + + + + [...]
--- OUTSIDE RECORDS SUMMARY | ~2019-03-21 | XMS | Encounter Summary ---
Demographics + + + | Address | [address] | | | [place] [address] | + + + | Home Phone [...] | Organization | [facility] [...] Team Providers + +------+ + | Care Data Entry Analyst Name | Role | Phone | [...] | | | | | | | MI REVISE | | | | | | [...] + + | 10/13/ | Anesthesia | [facility] | Asher Bliss MD | | | 2015 | Event | MED CTR OR INTRA OP | [address] | | | | | [address] | [place] | | | | | [place] | [address] | | | | | [address] | | | | | | [phone] | | | +--------+ + + + [...] + + | Periph | 10/14/15; 06; [id number] | 10/14/15657 by | 10/14/15 100 by [...]
--- OUTSIDE RECORDS SUMMARY | ~2019-03-21 | XMS | Encounter Summary ---
Demographics + + + | Address | [address] | | | [place] [address] | + + + | Home Phone [...] Author | [facility] | | | and [place] | + + + | Organization | [facility] | | [...] Providers + +------+ + | Care Senior Marketing Engineer Name | Role | Phone | [...] wound (Primary Dx) | | | | [place], [place] | [place] [address] | | | | | [address] | [phone] | | | | | [phone] | | | +--------+ + + + [...] confirmed she will be here for her [facility] follow-up appt in our office. Patient will [...]
--- OUTSIDE RECORDS SUMMARY | ~2019-03-21 | XMS | Encounter Summary ---
Demographics + + + | Address | [address] | | | [place] [address] | + + + | Home Phone [...] | Organization | [facility] | [...] Team Providers + +------+ + | Care Library Sales Consultant Name | Role | Phone | [...] | | | | | | | CT REVISE | | | | | | [...] Release | | | | [address] | [place] | | | | | [place] | [address] | | | | | [address] | | | | | | [phone] | | | +--------+---------+ + + + [...] mg of acetaminophen (Tylenol) per day. Hydrocodone-acetaminophen ([place] ) and Oxycodone-acetaminophen (Percocet) have 325 mg [...] hand or fingers Fever over 100.4F (38C) 6715-2308 [employer]. [address] [place] [address]. All righ ts reserved. This information is [...] [address] | [place] | [phone] | | [facility] | | [address] | | | - LABORATORY | | [...] + | [facility] | [address] | [place] | [phone] | | [facility] | | [address] | | | - LABORATORY | | [...] [address] | [place] | [phone] | | [facility] | | [address] | | | - LABORATORY | | [...] | | | FILTRATION | mL/min/1.73m2 | [facility] | | | [place] | RATE,ESTIMATED | | MEDICAL | | | | mL/min/1.77u5Aenj than | | CENTER - | | [...] [address] | [place] | [phone] | | [facility] | | [address] | | | - LABORATORY | | [...] [address] | [place] | [phone] | | [facility] | | [address] | | | - LABORATORY | | [...] [address] | [place] | [phone] | | [facility] | | [address] | | | - LABORATORY | | [...]
--- OUTSIDE RECORDS SUMMARY | ~2019-03-21 | XMS | Encounter Summary ---
Demographics + + + | Address | [address] | | | [place] [address] | + + + | Home Phone [...] + | Organization | [facility] | | | and [...] Team Providers + +------+ + | Care Clinical Program Director Name | Role | Phone | [...] RICARDO | | | | | [address] [facility] | [place] | | | | | [place] | [address] | | | | | [address] | | | | | | [phone] | | | +--------+ + + + [...]
--- OUTSIDE RECORDS SUMMARY | ~2019-03-21 | XMS | Encounter Summary ---
Demographics + + + | Address | [address] | | | [place] [address] | + + + | Home Phone | | + + + | Preferred Language | Unknown | + + + | Marital Status | | + + + | Holiness Affiliation | Unknown | + + + | Race | Unknown | + + + | Ethnic Group | Unknown | + + + Author + + + | Author | [facility] | | | and [place] | + + + | Organization | [facility] | | | [...] Providers + +------+ + | Care Ice Cream Freezer Name | Role | Phone | + +------+ + PCP | Unavailable | + +------+ + Encounter Details +--------+ + + + + | Date | Type | Department | Care Team | Description | +--------+ + + + + | 09/07/ | Hospital | [facility] | Celeste Ross | Hepatic cirrhosis, | | 2018 | Encounter | MED CTR ULTRASOUND | [address] | unspecified hepatic | | | | [address] [place] | [facility] | cirrhosis type, | | | | [place], [place] | [address], [place] | unspecified whether | | | | [address] | [address] | ascites present | | | | [phone] | [phone] | (HCC) | | | | | [...] 1315 hours by | | | the traffic court referee. Dictated and Signed by: Mark Anthony Finn [...] at 1315 hours by the | | traffic court referee. | | | | Dictated and Signed [...]
--- OUTSIDE RECORDS SUMMARY | ~2019-03-21 | XMS | Encounter Summary ---
Demographics + + + | Address | [address] | | | [place] [address] | + + + | Home Phone [...] + | Organization | [facility] | [...] Team Providers + +------+ + | Care E Marketing Specialist Name | Role | Phone | [...] wound (Primary Dx) | | | | [place], [place] | [place] [address] | | | | | [address] | [phone] | | | | | [phone] | | | +--------+ + + + [...] confirmed she will be here for her [facility] follow-up appt in our office. Patient [...]
--- OUTSIDE RECORDS SUMMARY | ~2019-03-21 | XMS | Encounter Summary ---
Demographics + + + | Address | [address] | | | [place] [address] | + + + | Home Phone [...] | [facility] | | | and [place]eshawnana | + + + | Organization | [facility] | | | and [place] | [...] Team Providers + +------+ + | Care Composition Professor Name | Role | Phone | + [...] + + | 01/31/ | Emergency | [facility] | Reza Wynn, | Other ascites | | 2019 - | | MEDICAL CENTER | [address] | (Primary Dx); | | | | EMERGENCY CENTER | [place] [address] | Generalized | | 02/01/ | | [address] | [phone] | abdominal pain; | | 2019 | | [place], [place] | | Autoimmune hepatitis | | | | [address] | | (HCC) | | | | [phone] | | | +--------+ + + + [...] be sent through Care Everywhere.Abdominal Pain, Adult (Italian)Ascites (Italian)documented in this encounter Medications at Time of [...] | | | MRN: | | | [id number] | | | [id number] | | | riteri | | | [...] | | | St. | | | [place] | | | y | | | [...] | | | St. | | | [place] | | | y | | | [...] | | | St. | | | [place] | | | y | | | [...] Acuity | | | | | | [place] | | | | | | Health [...] | | | St. | | | [place] | | | y | | | [...] | | | 2019 | | | [place] | | | | | | Health [...] | | | St. | | | [place] | | | y H. | | | [place] | | | [place] | | | Emerge | | | ncy | | | Chief | | | Compla | | | int: | | | SHAKY | | | Sep | | | 1, | | | 2019 | | | [facility] | [facility] | | | [place] | | | y H. | | [...] | | | St. | | | [place] | | | y H. | | [...] | | | St. | | | [place] | | | y H. | | [...] | | | St. | | | [place] | | | y H. | | [...] | | | St. | | | [place] | | | y H. | | [...] | | | St. | | | [place] | | | y H. | | [...] | | | St. | | | [place] | | | y H. | | [...] | | | 2018 | | | [place] | | | | | | Health [...] | | | St. | | | [place] | | | y H. | | [...] MD | | | | | | Brand Development Manager | | | al | | [...] | | | N, | | | INTELLIGENCE SUPPORT OFFICER-C | | | Nurse | | | [...] | Date/Time: 02/01/2019 0:38 Performed by: Reza Wnyn MD | | | Authorized by: Reza [...] | [facility] | | | Result | [facility];[address] | | LABORATORY | | | | [address];[place] [address] | | | | + + + + + + | RESULT | NO GROWTH 4 DAYS | | [facility] | | | | | | LABORATORY | | + + + + + + | RESULT | Testing performed at | | [facility] | | | | TCL, [address] [facility] | | LABORATORY | | | | [place], [place] | | | | | | [id number]: Testing | | | | | | performed at [facility], [address] | | | | | | [place], [place] | | | | | | [address] | | | | + + + + + + + + | Specimen | + + | Body Fluid - Ascitic | | fluid sample | | (specimen) | + + + + + + + | Performing | Address | City/State/Zipcode | Phone Number | | Organization | | | | + + + + + | [facility] | [address] | [place] [address] | [phone] | + + + + + Cell [...] + + + | BF RBC | <17025 | /mm3 | [facility] | | | [...] | | | Counted | performed at [facility];[address] | | LABORATORY | | | | [facility];[place], [place] | | | | | | [id number] ON 02/01 | | | | | [...] [facility] | [address] | [place] [address] | [phone] | + + + + + Urinalysis [...] - 1.030 | [facility] | | | [place], | | | LABORATORY | | | [...] | | | OXALATE | performed at [facility];[address] | | LABORATORY | | | [facility] | [address];[place] | | | | | | [address] | | | | + + + [...] | + + + + + | [facility] | [address] | [place] [address] | [phone] | + + + + + Lipase (01/31/2019 9:42 PM PDT) + + + + + + | Component | Value | Ref Range | Performed | Pathologist | | | | | At | Signature | + + + + + + | Lipase | 66 (H)Comment: Testing | 12 - 53 U/L | SYD | | | | performed at [facility];[address] | | LABORATORY | | | | [address];[place], [place] | | | | | | [address] | | | | + + + + + + + + | Specimen | + + | Blood | + + + + + + + | Performing | Address | City/State/Zipcode | Phone Number | | Organization | | | | + + + + + | [facility] | [address] | [place] [address] | [phone] | + + + + + Comprehensive [...] | | | | performed at [facility];[address] | | | | | | [facility];[place], [place] | | | | | | [address] | | | | + + + + + + + + | Specimen | + + | Blood | + + + + + + + | Performing | Address | City/State/Zipcode | Phone Number | | Organization | | | | + + + + + | [facility] | [address] | [place] [address] | [phone] | + + + + + CBC [...] | | | Absolute | performed at [facility];[address] | K/uL | LABORATORY | | | | [address];[place] | | | | | | [address] | | | | + + + + + + + + | Specimen | + + | Blood | + + + + + + + | Performing | Address | City/State/Zipcode | Phone Number | | Organization | | | | + + + + + | [facility] | [address] | [place] [address] | [phone] | + + + + + documented [...] mg | | | | Intravenous, ONCE, [facility] 01/31/19 at | | 19 10:25 | | | | | 2140, For 1 dose | | PM PDT | | | | + +-------+ +------+---+---+ +---+---+ | | | +---+---+ + +-------+ +------+---+---+ | morphine injection 4 mg 4 mg, | Given | 02/02/20 | 4 mg | | | | Intravenous, ONCE, [facility] 01/31/19 at | | 19 12:05 | | | | | 2320, For 1 dose | | AM PDT | | | | + +-------+ +------+---+---+ +---+---+ | | | +---+---+ documented in this encounter"
--- OUTSIDE RECORDS SUMMARY | ~2019-03-21 | XMS | Encounter Summary ---
Demographics + + + | Address | [address] | | | [place] [address] | + + + | Home Phone [...] Organization | [facility] | | | and [...] Team Providers + +------+ + | Care Dietitian Teaching Name | Role | Phone | + +------+ + PCP | Unavailable | + +------+ + Encounter Details +--------+ + + + + | Date | Type | Department | Care Team | Description | +--------+ + + + + | 12/19/ | Emergency | [facility] | Reza Lira MD | Forehead contusion, | | 2017 | [facility] | [address] | initial encounter; | | | | EMERGENCY CENTER | [place] [address] | Left shoulder | | | | [address] | [phone] | strain, initial | | | | [place], [place] | | encounter; | | | | [address] | | Fingernail injury, | | | | [phone] | | left, initial | | | [...] Conversion - 12/12/2018 11:52 PM PDT YOSELYN [id number] years | | FemaleCT HEAD WO CONTRAST12/19/2016 [...]
--- OUTSIDE RECORDS SUMMARY | ~2019-03-21 | XMS | Encounter Summary ---
Demographics + + + | Address | [address] | | | [place] [address] | + + + | Home Phone [...] | [facility] | | | and [place] | + + + | Organization | [facility] | | | and [place] [...] Providers + +------+ + | Care Director Regulatory Affairs Name | Role | Phone | + [...] | | | | | | | [place]ISE | | | | | | [...] + + | 10/13/ | Hospital | [facility] | Ramon Stokes | Carpal tunnel | | 2016 | Encounter | MED CTR OR INTRA OP | MD Mehul [address] [place] [address] | syndrome on right | | | | [address] | [place] | (Primary Dx); | | | | [place] | [address] | Hepatic cirrhosis, | | | | [address] | | unspecified hepatic | | | | [phone] | | cirrhosis type | | | [...] mg of acetaminophen (Tylenol) per day. Hydrocodone-acetaminophen ([place] ) and Oxycodone-acetaminophen (Percocet) have 325 mg [...] hand or fingers Fever over 100.4F (38C) 1629-9619 [employer] [place] [address]. All righ ts reserved. This information is [...] ST. | [address] | [place], [place] | [phone] | | [facility] | | [address] | | | - LABORATORY | | | | + + + + + Rual MCGRAW (10/14/2015 7:04 AM PDT) + + [...] [address] | [place] | [phone] | | [facility] | | [address] | | | - LABORATORY | | [...] [address] | [place] | [phone] | | [facility] | | [address] | | | - LABORATORY | | [...] 12 | 7 - 18 mg/dL | [facility] | | | | | | [facility] | | | | | | MEDICAL | | | | | | CENTER - | | | | | | LABORATORY | | + + + + + + | Creatinine | 0.91 | 0.60 - 1.30 | [facility] | | | | | mg/dL | [facility] | | | | | | MEDICAL | | | | | | CENTER - | | | | | | LABORATORY | | + + + + + + | eGFR if not | >60Comment: GLOMERULAR | >=60 | MARY ALICE | | | | FILTRATION | mL/min/1.73m2 | [facility] | | | VENEZUELAN | RATE,ESTIMATED | | MEDICAL | | | | mL/min/1.16p3Djia than | | CENTER - | | [...] + | [facility] | [address] | [place] | [phone] | | [facility] | | [address] | | | - LABORATORY | | [...] [address] | [place] | [phone] | | [facility] | | [address] | | | - LABORATORY | | [...] ST. | [address] | [place] | [phone] | | [facility] | | [address] | | | - LABORATORY | | [...]
--- OUTSIDE RECORDS SUMMARY | ~2019-03-21 | XMS | Encounter Summary ---
Demographics + + + | Address | [address] | | | [place] [address] | + + + | Home Phone [...] Organization | [facility] | | | and [...] Team Providers + +------+ + | Care Lime Kiln Operator Name | Role | Phone | + +------+ + PCP | Unavailable | + +------+ + Encounter Details +--------+ + + + + | Date | Type | Department | Care Team | Description | +--------+ + + + + | 02/13/ | Imaging | [facility] | Provider, | | | 2018 | Exam | MED CTR EXTERNAL | MD S[address] | | | | | IMAGING | [place] | | | | | [phone] | [place] [address] | | +--------+ + + + + [...]
[~2019-03-21 19:59] MED LIST changes: +BACTRIM DS TAB1 EACH PO; +CEPHALEXIN500 MG PO; +FUROSEMIDE40 MG PO; +LACTULOSE10 GM/15 M PO
--- OUTSIDE RECORDS SUMMARY | 2019-03-21 20:02 | XMS ---
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 Care History Medical/Surgical 11/07/2018 [facility] - PATIENT IS CURRENTLY WORKING [facility] - MANUEL MEETS WITH PATIENT ONCE A WEEK. - PATIENT CHOOSES AT TIMES TO BE NON COMPLIANT WITH MEDICATIONS. - MANUEL [employer] [facility]- IS FOLLOWING UP WITH PATIENT CLOSELY. 05/17/2018 [facility] - CHW CONTACTED WENDY VEGAS [facility] LEANDRA CM- THEY HAVE BEEN DISCUSSING PATIENT CARE WITH PCP. 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 - PATIENT PCP IS AWARE OF PATIENT CURRENT MEDICAL CONDITIONS. 03/14/2018 [facility] - PER PCP OFFICE- PATIENT HAS NOT FOLLOWED UP WITH PCP AFTER DISCHARGE FROM HOSPITAL ON 02/05/18. - PATIENT IS NOT FOLLOWING UP AND OR UTILIZING MENTAL HEALTH SERVICES THROUGH [employer]. E.D. VISIT COUNT (12 MO.) 1 [facility] 1 [facility] 3 [facility] 10 [facility]. TOTAL 15 NOTE: Visits indicate total known visits. ED/UCC VISIT TRACKING (12 MO.) 03/21/2019 20:00 [facility] TYPE: Emergency COMPLAINT: - SOB [facility] DIAGNOSES: - Leg Swelling - Lymphedema, not elsewhere classified - Leg Pain - Right Leg Pain 01/31/2019 19:52 [facility] Onur MONTAN[facility] TYPE: Emergency DIAGNOSES: - Autoimmune hepatitis - Abdominal Pain - Other ascites - Generalized abdominal pain 01/25/2019 10:28 [facility] TYPE: Emergency DIAGNOSES: 15277. ABDOMINAL PAIN 07044. Other cirrhosis of liver . Unspecified abdominal pain . Constipation, unspecified 01/13/2019 18:22 [facility] Maddison MONTANO TYPE: Emergency DIAGNOSES: - Abdominal Pain - Other ascites - Abd pain - Unspecified abdominal pain 01/04/2019 07:25 [facility] TYPE: Emergency COMPLAINT: - SHAKY 12/30/2018 13:13 [facility] TYPE: Emergency COMPLAINT: - FOOT PAIN, INJ DIAGNOSES: - Pain in left foot - Striking against or struck by other objects, init encntr - Other senior care (current) drug therapy - Contusion of left foot, initial encounter 11/05/2018 20:[address] [facility] [place] TYPE: Emergency COMPLAINT: - ABDOMINAL PAIN DIAGNOSES: - Unspecified abdominal pain - Unspecified cirrhosis of liver - Other senior care (current) drug therapy 11/01/2018 14:07 [facility] Onur MONTANO TYPE: Emergency DIAGNOSES: - Abdominal Pain - Other ascites - abd pain 10/13/2018 20:[address] 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 [facility] TYPE: Emergency COMPLAINT: - NAUSEA/TREMORS/DIARRHEA 07/23/2018 09:56 [facility] [place] TYPE: Emergency COMPLAINT: - ABD PAIN DIAGNOSES: - Other senior care (current) drug therapy - Periumbilical pain - Acquired absence of other specified parts of digestive tract - Hypothyroidism, unspecified - Unspecified cirrhosis of liver - Acquired absence of both cervix and uterus 05/15/2018 17:37 [facility] [place] TYPE: Emergency COMPLAINT: - ABD PAIN DIAGNOSES: - Other tank terminal gauger (current) drug therapy - Hypothyroidism, unspecified - Prsnl hx of TIA (TIA), and cereb infrc w/o resid deficits - Unspecified abdominal pain - Acquired absence of both cervix and uterus 05/11/2018 19:26 [facility] [place] TYPE: Emergency COMPLAINT: - ABD PAIN DIAGNOSES: - Other tank terminal gauger (current) drug therapy - Acquired absence of both cervix and uterus - Left upper quadrant pain - Hypothyroidism, unspecified - Unspecified cirrhosis of liver 05/02/2018 12:18 [facility] [place] TYPE: Emergency COMPLAINT: - ABD PAIN/SOB DIAGNOSES: - Hypothyroidism, unspecified - Shortness of breath - Other tank terminal gauger (current) drug therapy - Other ascites - Liver disease, unspecified INPATIENT VISIT TRACKING (12 MO.) 02/13/2019 08:21 [facility] TYPE: Interventional DIAGNOSES: 44384. Autoimmune hepatitis 04059. Other cirrhosis of liver 15025. Presence of other vascular implants and grafts 29469. Other ascites 01/04/2019 07:26 [facility] [place] TYPE: Observation COMPLAINT: - HEPATIC ENCEPHALOPATHY DIAGNOSES: - Hypo-osmolality and hyponatremia - Unspecified cirrhosis of liver - [facility] (current) use of antibiotics - Dizziness and giddiness - Other tank terminal gauger (current) drug therapy - Hypothyroidism, unspecified - Gastro-esophageal reflux disease without esophagitis - Autoimmune hepatitis - Hepatic failure, unspecified without coma - Patient's other noncompliance with medication regimen - Other pancytopenia 08/18/2018 22:05 [facility] [place] TYPE: Observation COMPLAINT: - HYPOTENSION DIAGNOSES: - Unspecified abdominal pain - Adverse effect of loop diuretics, initial encounter - Other ascites - Gastro-esophageal reflux disease without esophagitis - Hypothyroidism, unspecified - Unspecified cirrhosis of liver - Other senior care (current) drug therapy - Autoimmune hepatitis - Nausea - Other hypotension - Dehydration - Altered mental status, unspecified - Chronic hepatic failure without coma [email or web address]
--- NOTE | 2019-03-21 23:18 | NUR ---
pt ARRIVED TO FLOOR. STOOD FOR WEIGHT AND TRANSFERRED SELF TO BED. ASSESSMENT DONE. LEANDRA THORNTON IN ROOM TO DO ADMISSION. ABX INFUSING.
--- NOTE | 2019-03-22 00:13 | NUR ---
ROUNDED ON pt. COMPLAINED OF 6/10 PAIN REQUESTED PRN PAIN MEDS, pt UNABLE TO TAKE TYLENOL DUE TO LIVER, OXY GIVEN (SEE MAR). PUDDING PROVIDED. NO FURTHER REQUESTS AT THIS TIME. CALL LIGHT WITHIN REACH.
--- NOTE | 2019-03-22 02:02 | NUR ---
PT CALLED REQUESTING BENADRYL WHICH WE DO NOT HAVE ORDERS FOR. OFFERED LOTION TO PT TO TRY AT THIS TIME. PT STATES THE PAIN MEDS MAKE HER ITCH AND SHE USUALLY GETS PREMEDICATED WITH BENADRYL TO STOP THIS. ADVISED HER WE WILL CAN ASK THE DR IN THE AM FOR AN ORDER. SHE DENIES FURTHER NEEDS. CALL LIGHT IS WITHIN REACH.
--- NOTE | 2019-03-22 02:44 | NUR ---
VITALS AND I&O RECORDED. BP SOFT, pt DENIES LIGHTHEADEDNESS AND DIZZYNESS. pt REPORTED THAT HER BP "OFTEN IS LOW" ASSESSMENT DONE, NO CHANGES. REPORTED 4/10 PAIN AND THAT ITCHING IS IMPROVED. CALL LIGHT WITHIN REACH.
--- NOTE | 2019-03-22 04:45 | NUR ---
ROUNDED ON pt. RESTING WITH EYES CLOSED RESPIRATIONS REGULAR AND UNLABORED. CALL LIGHT WITHIN REACH.
--- NOTE | 2019-03-22 05:10 | NUR ---
pt ARRIVED FROM ED. RESTED ON AND OFF. PRN PAIN MEDS X1. IV SL, IV ABX. SBA FWW. TOLERATING 2GM SODIUM DIET, FLUID RESTRICTION. USES CALL LIGHT APPROPRIATELY.
--- NOTE | 2019-03-22 06:36 | NUR ---
pt SITTING IN BED WATCHING TV. MEDICATIONS GIVEN (SEE MAR) NO REQUESTS AT THIS TIME. CALL LIGHT WITHIN REACH.
--- NOTE | 2019-03-22 07:31 | NUR ---
HOSPITALIST CALLED AND A MESSAGE WAS LEFT REGARDING HEMAGLOBIN OF 6.8.
--- NOTE | 2019-03-22 07:35 | NUR ---
0715: REPORT RECEIVED FROM JORDI MOBLEY. PT SLEEPING AND APPEARS IN NO DISTRESS. CALL ZEPEDA WITHIN REACH. HOSPITALIST CALLED AND A MESSAGE LEFT TO UPDATE HIM OF THE HEMOGLOBIN OF 6.8, CHARGE NURSE ALSO NOTIFIED.
--- NOTE | 2019-03-22 09:21 | NUR ---
NEW BINHDERS RECIEVED.
--- NOTE | 2019-03-22 09:22 | NUR ---
PT RESTING IN HER BED WITH NO COMPLAINTS OF DIZZY OR LIGHTHEADNESS, OR ANY OTHER PROBLMES AT THIS TIME. AWAITING BLOOD TRANSFUSION AT THIS TIME.
--- NOTE | 2019-03-22 09:30 | NUR ---
SPOKE WITH PATIENT IN ROOM. PATIENT ALERT, WAS ON PHONE WHEN I ENTERED. PATIENT LIVES AT HOME WITH . NO STAIRS IN THE HOME. SHE HAS A WALKER. SHE DOES NOT DRIVE, BUT DOES. HAS NO PROBLEMS GETTING TO APPOINTMENTS. SHE STATES SHE HAS APPOINTMENT IN [place] WITH F/U FOR RECENT PROCEDURE AND WILL TAKE HER. PATIENT PLANS TO RETURN HOME AT DISCHARGE, STATES SHE CAN AFFORD MEDICATIONS AND FOOD. SHE FEELS SAFE AT HOME. SHE FEELS SHE HAS EXCELLENT FAMILY SUPPORT. NO BARRIERS KNOWN TO HOME DISCHARGE AT THIS TIME. WILL FOLLOW NEEDED.
--- NOTE | 2019-03-22 11:00 | NUR ---
1040: FIRST UNIT OF PRBC'S STARTED. 1055: VITAL'S UNCHANGED AND THE PT DENIES ANY CHANGE IN HER BREATHING OR CHEST PAIN. IV SITE REMAINS INTACT. BLOOD INFUSION RATE INCREASED.
[2019-03-22] MEDS ORDERED: OMEPRAZOLE40 MG PO (11:25)
[2019-03-22] MEDS ORDERED: SPIRONOLACTONE100 MG PO (11:28)
[2019-03-22] MEDS ORDERED: OXYCODONE HCL5 MG PO (11:34)
[2019-03-22] MEDS ORDERED: ALLERGY MEDICAT25 MG PO (11:35)
--- NOTE | 2019-03-22 11:39 | NUR ---
MED REC COMPLETED. NOTE: SEVERAL CHANGES AND ADDITIONS WERE MADE.
--- NOTE | 2019-03-22 11:48 | NUR ---
PT CONTINUES RECEIVING THE FIRST UNIT OF BLOOD AND SHE DENIES ANY S/S OF REACTION. SHE IS EATING HER LUNCH AT THIS TIME WITH NO COMPLAINTS.
--- NOTE | 2019-03-22 12:09 | NUR ---
PT UP AMBULATING IN THE HALLS WITH THERAPY AT THIS TIME.
--- NOTE | 2019-03-22 12:50 | EKG ---
[facility] [address] [place], [place] [address] Signed Sinus tachycardia Otherwise normal ECG When compared with ECG of 04-JAN-2019 08:11, No significant change was found Confirmed by NGOZI CÁRDENAS DO ([id number]) on 03/22/2019 12:50:26 PM Electronically Signed By: NGOZI CÁRDENAS DO 03/22/19 1250 PATIENT NAME: LESLYE MAGANA Electrocardiogram DATE OF : 53 PHYSICIAN: NGOZI CÁRDENAS DO REPORT #: [id number] REPORT IS CONFIDENTIAL AND NOT TO BE RELEASED WITHOUT AUTHORIZATION
--- NOTE | 2019-03-22 13:09 | NUR ---
PT RESTING IN HER BED AND SHE CONTINUES TO DENIE ANY PAIN OR SOB. PT RECEIVING HER FIRST UNIT OF BLOOD WHICH IS ALMOST COMPLETE. CALL ZEPEDA WITHIN REACH.
--- NOTE | 2019-03-22 13:25 | NUR ---
SECOND UNIT OF BLOOD STARTED.
--- NOTE | 2019-03-22 13:41 | NUR ---
PT GOT UP TO THE BR JUST PRIOR TO CHECKING HER VITAL SIGNS. NO S/S OF REACTION, IV INFUSION RATE INCREASED AT THIS TIME.
--- NOTE | 2019-03-22 15:34 | NUR ---
Pt resting in her bed and she continues to denie any sob or pain. Blood continues infusing at this time.
--- NOTE | 2019-03-22 15:56 | NUR ---
SECOND UNIT OF BLOOD COMPLETED. LAST H/H IS 9.4/27.9 WHICH WAS DRAWN BEFORE THE SECOND UNIT WAS COMPLETED. PT DENIES ANY CP OR SOB, EDEMA REMAINS UNCHANGED.
--- NOTE | 2019-03-22 23:42 | NUR ---
ROUNDED ON pt. RESTING WITH EYES CLOSED, RESPIRATIONS REGULAR AND UNLABORED. CALL LIGHT WITHIN REACH.
--- NOTE | 2019-03-23 02:14 | NUR ---
pt CALLED. PROVIDED WITH PUDDING AND FIXED REMOTE. NO FURTHER REQUESTS AT THIS TIME. CALL LIGHT WITHIN REACH.
--- NOTE | 2019-03-23 04:32 | NUR ---
ROUNDED ON pt. RESTING WITH EYES CLOSED, RESPIRATIONS REGULAR AND UNLABORED. CALL LIGHT WITHIN REACH.
--- NOTE | 2019-03-23 06:00 | NUR ---
CALL LIGHT ON. pt UP TO VOID AND BACK TO BED. pt DENIED SOB. URINE OUTPUT WAS ORANGE. IV REDRESSED. ASSESSMENT DONE. MEDICATIONS GIVEN (SEE MAR). CALL LIGHT WITHIN REACH.
--- NOTE | 2019-03-23 07:26 | NUR ---
0713: REPORT RECIEVED FROM JORDI MOBLEY. PT SLEEPING AT THIS TIME AND SHE APPEARS IN NO DISTRESS. CALL ZEPEDA IS WITHIN REACH.
--- NOTE | 2019-03-23 08:09 | NUR ---
HELPED PATIENT GET UP AND GO TO THE BATHROOM. PATIENT IS SITTING UP IN HER CHAIR WAITING FOR BREAKFAST. SET HER UP FOR A SHOWER.
--- NOTE | 2019-03-23 08:43 | NUR ---
PT SITTING IN HER CHAIR EATING BREAKFAST AT THIS TIME. SHE DENIES ANY PAIN. +3 PITTING EDMEA REMAINS IN HER LOWER LEGS AND SOME TRACE EDEMA IN HER WRISTS. SHE DENIES ANY SOB OR NEW PROBLMES. PT ENCOUARGED TO ELEVATE HER LEGS WHICH SHE STATES SHE WILL DO. CALL ZEPEDA WITHIN REACH.
--- NOTE | 2019-03-23 11:19 | NUR ---
Pt resting in her bed and she states she denies any new problems and states that she is hoping to go home today.
== END 2019-03-23 13:05 | disposition home or self-care (01) | DRG 442 ==
LOC: ED 19:59 → MS 20:01 → ED 20:01 → MS 20:01
PROVIDERS: ADMIT Student in an Organized Health Care Education/Training Program
PROC: 30233N1 Transfusion of Nonautologous Red Blood Cells into Peripheral Vein, Percutaneous Approach (ICD-10-PCS; principal; 2019-03-22)
DX: K72.90 Hepatic failure, unspecified without coma (principal); L03.115 Cellulitis of right lower limb; D61.818 Other pancytopenia; K75.4 Autoimmune hepatitis; K74.60 Unspecified cirrhosis of liver; E87.70 Fluid overload, unspecified; E03.9 Hypothyroidism, unspecified; K21.9 Gastro-esophageal reflux disease without esophagitis; Z79.899 Other long term (current) drug therapy; Z79.2 Long term (current) use of antibiotics
CPT/HCPCS: 36415; 71045; 71260; 80048; 80053; 81001; 82728; 83540; 83735; 83880; 84443; 84466; 84484; 85025; 85379; 85610; 85730; 86850; 86900; 86901; 86920; 93005; 93010; 97162; 97165; 99285-25; A9270; J0696; J1170; J1940; Q9967

== ENCOUNTER 2019-05-18 08:31 | Inpatient (IN) | payer MEDICARE, OTHER ==
[~2019-05-18] VITALS: Ht 165.1 cm; Wt 101.8 kg
[~2019-05-18 08:31] MED LIST changes: +ALLERGY MEDICAT25 MG PO
--- OUTSIDE RECORDS SUMMARY | 2019-05-18 08:34 | XMS ---
PreManage Notification: LESLYE MAGANA Security Director Medical Safety Events No recent Security Events currently on file CRITERIA MET - 6 ED Visits in 6 Months - [facility] - 3 Facilities in 90 Days CARE PROVIDERS TRUONG RUBI Internal Medicine: Pulmonary Disease Current PHONE: Unknown LANA MELCHOR [facility] 03/13/2018-Current PHONE: Unknown ANURADHA TAVARES Nurse Practitioner 11/06/2018-Current PHONE: [phone] [facility] 03/22/2019-Current PHONE: [phone] TRUONG RUBI Primary Care Current PHONE: Unknown Bianca has no Care Guidelines for this patient. 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 - MANUEL MEETS WITH PATIENT ONCE A WEEK. - PATIENT CHOOSES AT TIMES TO BE NON COMPLIANT WITH MEDICATIONS. - MANUEL MOBLEYHARDWARE DEVELOPER- IS FOLLOWING UP WITH PATIENT CLOSELY. 05/17/2018 [facility] - CHW CONTACTED WENDY AT [facility] LEANDRA CM- THEY HAVE BEEN DISCUSSING PATIENT CARE WITH PCP. - PATIENT DOES HAVE A CRNA WHO IS BEING SEEN OUTSIDE OF THE [facility] NETWORK. - PATIENT PCP IS AWARE OF PATIENT CURRENT MEDICAL CONDITIONS. 03/14/2018 [facility] - PER PCP OFFICE- PATIENT HAS NOT FOLLOWED UP WITH PCP AFTER DISCHARGE FROM HOSPITAL ON 02/05/18. - PATIENT IS NOT FOLLOWING UP AND OR UTILIZING MENTAL HEALTH SERVICES THROUGH [employer]. E.DNader VISIT COUNT (12 MO.) 1 [facility] [place] 2 [facility] 3 [facility] [address] [facility] TOTAL 14 NOTE: Visits indicate total known visits. ED/UCC VISIT TRACKING (12 MO.) 05/18/2019 08:32 A[facility] Bailey TYPE: Emergency COMPLAINT: - DISORIENTED 03/27/2019 13:28 [facility] TYPE: Emergency DIAGNOSES: - Chronic hepatic failure without coma - Other pancytopenia - Weakness - Localized edema - Dizziness 03/21/2019 20:00 [facility] TYPE: Emergency COMPLAINT: - ANASARCA 03/15/2019 17:50 [facility] DIAGNOSES: - Leg Swelling - Lymphedema, not elsewhere classified - Leg Pain - Right Leg Pain 01/31/2019 19:52 [facility] [place] TYPE: Emergency DIAGNOSES: - Autoimmune hepatitis - Abdominal Pain - Other ascites - Generalized abdominal pain 01/25/2019 10:28 [facility] TYPE: Emergency DIAGNOSES: 89945. ABDOMINAL PAIN 41041. Other cirrhosis of liver 35138. Unspecified abdominal pain 12863. Constipation, unspecified 01/13/2019 18:22 [facility] TYPE: Emergency DIAGNOSES: - Abdominal Pain - Other ascites - Abd pain - Unspecified abdominal pain 01/04/2019 07:25 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 11/01/2018 14:07 [facility] Maddison [facility]aderAna[facility]ader [facility]ONT[facility] TYPE: Emergency DIAGNOSES: - Abdominal Pain - Other ascites - abd pain 10/13/2018 20:27 A[facility] [place] TYPE: Emergency COMPLAINT: - ABDOMINAL PAIN DIAGNOSES: - Other detention (current) drug therapy - Other ascites - Unspecified cirrhosis of liver - Unspecified abdominal pain 08/18/2018 22:04 ADEL[facility] [place] TYPE: Emergency COMPLAINT: - NAUSEA/TREMORS/DIARRHEA 07/23/2018 09:56 [facility] [place] TYPE: Emergency COMPLAINT: - ABD PAIN DIAGNOSES: - Other detention (current) drug therapy - Periumbilical pain - Acquired absence of other specified parts of digestive tract - Hypothyroidism, unspecified - Unspecified cirrhosis of liver - Acquired absence of both cervix and uterus INPATIENT VISIT TRACKING (12 MO.) 03/21/2019 22:47 [facility] [place] TYPE: Medical Surgical COMPLAINT: - ANASARCA DIAGNOSES: - Generalized edema - Gastro-esophageal reflux disease without esophagitis - Cellulitis of right lower limb - Autoimmune hepatitis - Other detention (current) drug therapy - Hepatic failure, unspecified without coma - group home (current) use of antibiotics - Fluid overload, unspecified - Other pancytopenia - Hypothyroidism, unspecified - Unspecified cirrhosis of liver 02/13/2019 08:21 [facility] TYPE: Interventional DIAGNOSES: 53632. Autoimmune hepatitis 56164. Other cirrhosis of liver 40662. Presence of other vascular implants and grafts 04311. 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
--- NOTE | 2019-05-18 15:15 | NUR ---
Patient transferred to unit via stretcher from ER. 2PA to commode, large bowel movement produced with urine. Patient able to shuffle to bed with 2PA. Vital signs taken, assessment complete. Family at bedside. Patient resting comfortably in bed with warm blankets, call light within reach.
--- NOTE | 2019-05-18 16:32 | NUR ---
Patient sleeping in bed, rouses to verbal stimulation. PO lasix given. Patient educated on 1800 ml fluid restriction and is agreeable. Denies pain. No needs at this time, call light within reach.
--- NOTE | 2019-05-18 17:15 | NUR ---
Patient sleeping in bed, respirations even and unlabored. Call light within reach.
--- NOTE | 2019-05-18 17:56 | NUR ---
Patient up to commode with 2PA, voided 250 mls. Returns to chair with SBA. Patient eating dinner, denies further needs. Call light within reach.
--- NOTE | 2019-05-18 20:00 | NUR ---
PATIENT SITTING UPRIGHT IN THE RECLINER. IN ROOM. PATIENT OPENS EYES TO VOICE BUT APPEARS TIRED. ORIENTED TO SELF ONLY. FOLLOWS DIRECTIONS WITH ENCOURAGMENT. EEVENING MEDICATIONS PROVIDED. PATIENT INCONTINENT OF LARGE AMOUNT OF URINE. ASSISTED UP TO BSC. ASSISTED WITH GIORGI CARE AND NEW ATTENDS IN PLACE. PATIENT TRANSFERED INTO BED WITH 1PA AND FREQUENT DIRECTIONS. PATIENT MOVES SLOWLY AND APPEARS UNSURE. VS STABLE. FAMILY AT BEDSIDE. CALL LIGHT IN HAND. PATIENT DEMONSTRATES ABILITY TO USE CALL LIGHT. BED ALARM ON.
--- NOTE | 2019-05-18 22:10 | NUR ---
PATIENT HAS BEEN SLEEPING SOUNDLY. FAMILY HAS LEFT FOR THE NIGHT. RR 18. BED ALARM ON. CALL LIGHT IN REACH.
--- NOTE | 2019-05-19 00:39 | NUR ---
PATIENT WOKE EASILY TO VOICE. ORIENTED TO SELF AND SURROUNDINGS. INCONTINENT OF LARGE AMOUNT OF URINE. ASSISTED UP TO BSC. 350 ML JOSE URINE NOTED. FRESH ATTENDS IN PLACE. PATIENT RETURNED TO BED. VS STABLE. PATIENT DENIES ANY NEEDS. WARM BLANKETS PROVIDED. CALL LIGHT IN HAND. BED ALARM ON.
--- NOTE | 2019-05-19 02:30 | NUR ---
PATIENT SLEEPING SOUNDLY. RR 20. CALL LIGHT IN REACH.
--- NOTE | 2019-05-19 05:01 | NUR ---
PATIENT SLEEPING SOUNDLY. WOKE TO VOICE. INCONTINENT OF SMALL AMOUNT OF URINE. DENIES NEED TO VOID. ASSISTED TO PLACE NEW ATTENDS. PATIENT ORIENTED TO SELF AND SURROUNDINGS. DENIES ANY NEEDS. CALL LIGHT IN REACH. BED ALARM ON.
--- NOTE | 2019-05-19 08:09 | NUR ---
PATIENT STILL SLEEPING AT THIS TIME, AND APPEARS IN NO ACUTE DISTRESS. WILL ALLOW PATIENT TO REST AT THIS TIME.
--- NOTE | 2019-05-19 08:51 | NUR ---
PATIENT AWOKEN FOR VITALS AND ASSESSMENT. PT PROCESSING SLOW TODAY, BUT ORIENTED TO PLACE AND EVENT. PT HELPED UP TO BSC BUT VERY SLOW TO MOVE. PT HAVING DIFFICULTY MOVING SELF, IT TAKES HER A FEW MOMENTS TO PROCESS. PT NOW SITTING IN CHAIR. PT ABLE TO TAKE HER AM MEDS INCLUDING HER LACTULOSE. PT REMAINS ON AN 1800 ML FLUID RESTRICTION. BREAKFAST ORDERED. ASSESSMENT COMPLETE. CONTINUE TO MONITOR. CALL LIGHT WITHIN REACH.
--- NOTE | 2019-05-19 09:53 | NUR ---
PATIENT SITTIN IN CHAIR EATING HER BREAKFAST. PATIENT SPILLED HER MILK ACCIDENTALLY. PT INSTRUCTED TO USE CALL LIGHT WHEN SHE NEEDS TO HAVE A BM. CONTINUE TO MONITOR.
--- NOTE | 2019-05-19 10:47 | NUR ---
PATIENT USES CALL LIGHT AND DOESN'T STATE VERY CLEARLY WHAT SHE NEEDS, BUT EVENTUALLY, PATIENT MOVED FROM CHAIR ONTO BSC. PT HAD ALREADY VOIDED IN ATTENDS. PT NOT ABLE TO MOVE VERY WELL FROM A SEATED POSITION, BUT ONCE STANDING, MORE STABLE ON FEET. PT DID NOT HAVE A BM AT THIS TIME. CONTINUE TO MONITOR. PT HELPED BACK TO BED. CALL LIGHT WITHIN REACH.
--- NOTE | 2019-05-19 10:52 | NUR ---
PATIENT'S DAUGHTER HERE AT THIS TIME AND GIVEN UPDATE ON PT'S CONDITION. PT TALKATIVE WITH HER DAUGHTER AND INTRODUCES DAUGHTER TO THIS RN. PATIENT AND FAMILY UPDATED OF POTENTIAL TRANSFER TO MEDICAL FLOOR PENDING OPEN ROOMS.
--- NOTE | 2019-05-19 12:08 | NUR ---
MED REC COMPLETED PER CONVERSATION WITH SPOUSE.
--- NOTE | 2019-05-19 12:12 | NUR ---
REPORT GIVEN TO LEANDRA GRADY ON MED SURG. PATIENT MOVED TO ROOM 114 IN HER BED WITH ALL HER BELONGINGS. PT'S AT BEDSIDE WELL.
--- NOTE | 2019-05-19 12:18 | NUR ---
PT arrived to floor via bed, pt is oriented to all. pt is drowsy. respirations equal and nonlabored. lungs clear, heart sounds regular. bowel tones hypo active on left side and active on left right side. pt with bilat 2+ edema in le. general edema all over. skin and eyes jaundice in color, pt is clammy all over. denies pain or nasuea. oriented to room and call light. deneis needs.
--- NOTE | 2019-05-19 13:41 | NUR ---
physical therapy in to evaluate patient.
--- NOTE | 2019-05-19 16:06 | NUR ---
CAME IN TO CHECK ON PATIENT. PATIENT WAS SOAKED SO WE TOOK HER INTO THE SHOWER. GAVE HER A SHOWER AND WASHED HER HAIR. THE NURSE AND I CHANGED HER BED LINENS. NOW PATIENT IS IN BED WATCHING TV ALSO IS HERE VISITING.
--- NOTE | 2019-05-19 17:00 | NUR ---
PT UP IN BED EATING DINNER.ATE 100%. ATTEMPTED BOWEL MOEVEMENT. PT UNSUCCESSFUL. INCONT OF LARGE AMOUNT OF URINE. LINENS CHANGED AND PT PLACED IN SHOWER. BACK TO BED .CALL LIGHT IN REACH.
--- NOTE | 2019-05-19 21:04 | NUR ---
very slow to respond, awake, alert , watching tv. Taking lactulose po, semi resistant to completing lactulose, pt on 1800fl restriction. awake of lactulose enama due. bed alrm on.
--- NOTE | 2019-05-19 22:37 | NUR ---
received lactulose enema 200cc rectally at 2200 Up to bsc at this time, passing gas, very small amount of yellow semiliquid bm noted, pt expelled all lactulose rectally, unable to retain it. 2PA, very slow response to instructions
--- NOTE | 2019-05-19 23:33 | NUR ---
Pt had some results from enemas. Very large soft-yellow, strong smelling bm noted when pt was upto bsc. skin care done. Pt also voided into bsc. Back to bed, tolerated well. Continues to have slow response to instructions. Requires 2 PA. Continues on 1800cc/24 hr fluid restriction
--- NOTE | 2019-05-20 00:33 | NUR ---
RESTING, NO DISTRESS, ATTENDS INPLACE, NOFURTHER INCONTINENCE OF URINE OR BM.
--- NOTE | 2019-05-20 02:54 | NUR ---
RESTING, EYES CLOSED, JAUNDICED SKIN AND SCLERA. NO FURTHER BM SINCE EARLIER. CONTINUES ON FLUID RESTRICTION. ATTENDS INPLACE, DRY. BED ALARN AND CALL LIGHT AT BEDSIDE
--- NOTE | 2019-05-20 04:33 | NUR ---
resting, resp even unlabored, eyes closed. bed alarm on, continueson fluids restriction, no further results from laculose tx. attends in place. call light at bedside,
--- NOTE | 2019-05-20 05:14 | NUR ---
Pt confused, slow to react and answer to instructions or procedures. Received po and R lactulose, effective, had an extra large amount of soft liquid yellow colored bm with very stron odor. Up to bsc w 2 PA, tolerated fairIncontinent of urine. skin care done, barrier cream to sherri area. Continues on fluid restriction. tolerating well. call light at bedside, bed alarm on. Skin and sclera jaundiced, coop with labs.
--- NOTE | 2019-05-20 08:45 | NUR ---
PT SITTNG UP IN BED WATCHING TV. ATE ALL OF BREAKFAST INDEPENDENTLY. DENIES PAIN OR OTHER CONCERNS AT THIS TIME. SLOW TO RESPOND BUT CURRENTLY ALERT AND ORIENTED TO ALL, FLAT AFFECT. SKIN DRY AND JAUNDICED BUT GROSSLY INTACT. BED ALARM ON. CALL LIGHT WITHIN REACH.
--- NOTE | 2019-05-20 09:30 | NUR ---
PHYSICAL THERAPY WORKED WITH PATIENT AND AT THE END OF SESSION PT REPORTED RIGHT AREM PAIN, UNABLE TO LIFT. PHYSICLA THERAPIST REQUESTED NURSE TO BEDSIDE. THIS RN INTO ASSESS PT, PT REPORTS THIS IS NOT NEW, PT'S DAUGHTER AT BEDSIDE REPORTS THIS IS NOT NEW AND COMES AND GOES. PT REPORTS NO PAIN AT THIS TIME AT REST.
--- NOTE | 2019-05-20 09:57 | NUR ---
PATIENT IN BED ATTEND ON, PATIENT JUST DID PHYSICAL THERAPY, PATEINT NEEDED NO OTHER ASSISTANCE
--- NOTE | 2019-05-20 11:43 | NUR ---
PT LYING IN BED APPEARS TO BE SLEEPING. EYES CLOSED. RESP EVEN AND UNLABORED. MALE VISITOR SITTING AT BEDSIDE.
--- NOTE | 2019-05-20 12:35 | NUR ---
PT SITTING UP IN BED ATE A SMALL AMOUNT OF LUNCH INDEPENDENTLY. AT BEDSIDE. BISOCODYL SUPPOSITORY ADMINISTERED ALONG WITH THE REST OF SCHEDULED MEDS. PT REQUIRES FREQUENT REMINDERS OF REASON FOR INTERVENTIONS AND MEDICATIONS, VERY SLOW TO RESPOND, WITH FLAT AFFECT. PT DENIES PAIN OR OTHER CONCERNS AT THIS TIME. CALL LIGHT WITHIN REACH.
--- NOTE | 2019-05-20 14:37 | NUR ---
PT LYING IN BED, APPEARS TO BE SLEEPING. EYES CLOSED, RESP EVEN AND UNLABORED. BED ALARM ON.
--- NOTE | 2019-05-20 15:31 | NUR ---
PATIENT IS INCONTINENT, DOES NOT USE THE CALL LIGHT, V MADI SLEEPY, VOIDS A LARGE AMOUNT
--- NOTE | 2019-05-20 16:20 | NUR ---
PT 1PA WITH WALKER TO BSC. VOIDED AND ASSISTED BACK TO BED. BED ALARM ON. CALL LIGHT WITHIN REACH.
--- NOTE | 2019-05-20 16:45 | NUR ---
SPOKE WITH PATIENT AND IN ROOM. PATIENT WAS IN BED ASLEEP, AWAKENS SLOWLY. PATIENT LIVES WITH LOCALLY. HAS ADULT DAUGHTERS IN THE AREA WHO HELP. STATES THEY HAVE "SOMEONE WHO COMES AND HELPS WITH MEDICATIONS" FROM [facility]. PATIENTS INTENDS TO RETURN HOME AT DISCHARGE. BOTH STATE THEY DO NOT HAVE A PROBLEM WITH AFFORDING MEDS, FOOD OR UTILITIES. PATIENT IS DROWSY AND FALLS ASLEEP EASILY. STATES SHE IS TIRED AND "WALKED THE DOHERTY A LOT". UNABLE TO CALL [employer] IT IS A HOLIDAY, CM WILL CONTINUE TO FOLLOW.
--- NOTE | 2019-05-20 18:37 | NUR ---
PT APPEARS TO BE SLEEPING UPON ENTERING ROOM, OPENS EYES TO VERBAL STIMULI. DINNER TRAY AT BEDSIDE, PT ATE ALL OF DINNER, JUSTYNA WELL. DENIES NAUSEA, PAIN OR OTHER CONCERN. BED ALARM ON. CALL LIGHT WITHIN REACH.
--- NOTE | 2019-05-20 19:10 | NUR ---
pt RESTING IN BED, FLAT AFFECT. BEDSIDE REPORT RECEIVED FROM LEANDRA BLANCO. NO REQUESTS AT THIS TIME. CALL LIGHT IN REACH.
--- NOTE | 2019-05-20 22:30 | NUR ---
pt ASSESSMENT COMPLETE. BOWEL TONES ACTIVE X 4. ABD TENDER WITH PALPATION LEFT UPPER QUADRANT. ABD SOFT. ENEMA ADMINISTERED ORDERED. pt ABLE TO HOLD ENEMA IN FOR 15 MINUTES. LOOSE BM NOTED IN BED. BEDDING CHANGED. pt UP TO COMMODE, CALL LIGHT IN REACH. MARIN WHITAKER IN CLOSE PROXIMITY FOR pt MONITORING. pt IS ALERT AND ORIENTED X 4, SLOW TO RESPOND, FLAT AFFECT. ABLE TO DEMONSTRATE USE OF CALL LIGHT.
--- NOTE | 2019-05-20 23:05 | NUR ---
CHECKED ON pt, REQUESTING MORE TIME ON COMMODE. CALL LIGHT IN REACH.
--- NOTE | 2019-05-21 01:09 | NUR ---
CHECKED ON pt. RESTING IN BED WITH EYES CLOSED. BREATHING UNLABORED, RR 16. BED ALARM ON.
--- NOTE | 2019-05-21 03:19 | NUR ---
pt SLEEPING, AWAKENS TO VOICE. DENIES TOILETING NEEDS. ATTENDS DRY. REPOSITIONED WITH LEGS ELEVATED. 1 + EDEMA BILATERALLY LOWER EXTREMITIES. pt DENIES PAIN, DENIES NAUSEA. BOWEL TONES ACTIVE. CALL LIGHT IN REACH. BED ALARM ON. ICE CHIPS PROVIDED REQUESTED.
--- NOTE | 2019-05-21 05:21 | NUR ---
pt WITH LARGE INCONTINENT BM X1 AFTER SCHEDULED ENEMA, 2500 ML MIXED BM AND VOID IN BSC. ALERT AND ORIENTED X 4, FLAT AFFECT. 1-2PA WITH FWW. BOWEL TONES ACTIVE X 4. ABD SOFT. 1+ EDEMA BLE, LEGS ELEVATED. IV SL WNL.
--- NOTE | 2019-05-21 06:22 | NUR ---
pt SLEEPING. AWAKENS TO VOICE. VSS. PO MEDICATION ADMINISTERED. ATTENDS CHANGED, SMALL SPOT URINE. NO REQUESTS AT THIS TIME. BED ALARM ON. CALL LIGHT IN REACH.
--- NOTE | 2019-05-21 07:50 | NUR ---
PT LYING IN BED EYES CLOSED, APPEARS TO BE SLEEPING. RESP EVEN AND UNLABORED.
--- NOTE | 2019-05-21 08:28 | NUR ---
PATIENT RESTING IN BED. CALL LIGHT WITHIN REACH. NO OTHER NEEDS AT THIS TIME
--- NOTE | 2019-05-21 09:25 | NUR ---
PATIENT RESTING IN BED. IN ROOM. VITAL SIGNS AND I&O DONE. SETS UP TABLE FOR BREAKFAST. CALL LIGHT WITHIN REACH. NO OTHER NEEDS AT THIS TIME
--- NOTE | 2019-05-21 09:45 | NUR ---
PT SITTING UP IN BED EATING BREAKFAST INDEPENDENTLY. ALERT AND ORIENTED TO ALL AT THIS TIME ALTHOUGH SLOW TO RESPOND. DENIES PAIN OR OTHER CONCERN CURRENTLY. AT BEDSIDE. PT HAD NO TROUBLE TAKING PILLS AND LACTULOSE. CALL LIGHT WITHIN REACH. BED ALARM ON.
--- NOTE | 2019-05-21 09:55 | NUR ---
PATIENT SAID SHE DID "OK" WITH BREAKFAST. STATES HER APPETITE "IS GOOD." SHE IS ON A 2 GRAM SODIUM DIET WITH 1800 ML FLUID RESTRICTION FOR FLUID ACCUMULATION IN REGARDS TO HEPATIC ENCEPHALOPATHY AND CIRRHOSIS. SHE LIVES WITH HER , [place]. HE WAS IN THIS MORNING, ASKING ABOUT HOW HER BM ARE. I SAID HE WILL HAVE TO ASK HER NURSE. PATIENT QUIET OTHERWISE. CONTINUE 2 GRAM SODIUM DIET. WILL MONITOR NEED FOR EDUCATION PRIOR TO DISCHARGE.
--- NOTE | 2019-05-21 10:26 | NUR ---
PT WORKING WITH [employer]
--- NOTE | 2019-05-21 10:45 | NUR ---
ROOF BOLTER HELPER IN WITH PT WILL RETURN LATER.
--- NOTE | 2019-05-21 11:00 | NUR ---
Spoke with Svitlana. She plans on discharge to home with spouse and assist from daughters. Notified by Rn daughter would like to be included in education and dc and she feels spouse does not have a good understanding of pt's care. Notified by Pt. educator, Dorcas, pt does not take her lactulose as it causes her to have frequent bms and she doesn't care for this. Called daughter and left a message for call back. Returned call to Zelda at [facility] and update given. Chart faxed, their community Health nurses will work with pt on [place] program and education when pt is discharged. She will also update the [facility] provider.
--- NOTE | 2019-05-21 11:34 | NUR ---
PATIENT RESTING IN BED. IV WRAPPED. PATIENT GOES TO TAKE A SHOWER. ONE PERSON ASSISTING. PATIENT BACKS TO CHAIR. WARM BLANKET PROVIDED. PATIENT USING A CLEAN GOWN AND ADULT PULL UP. LINENS CHANGED. CALL LIGHT WITHIN REACH. NO OTHER NEEDS AT THIS TIME
--- NOTE | 2019-05-21 12:47 | NUR ---
PT SITTING UP IN RECLINER DROWSY BUT ORIENTED TO ALL. ATE ALL OF LUNCH, JUSTYNA WELL. DENIES NEEDS OR CONCERNS AT THIS TIME. CALL LIGHT WITHIN REACH.
--- NOTE | 2019-05-21 12:53 | NUR ---
PATIENT SITTING UP IN CHAIR. RN IN ROOM. VITAL SIGNS AND I&O DONE. CALL LIGHT WITHIN REACH. NO OTHER NEEDS AT THIS TIME
--- NOTE | 2019-05-21 13:00 | NUR ---
PT EDUCATED REGARDING HER DISEASE PROCESS, STATES TO ME THAT SHE IS SUPPOSED TO TAKE HER LACTULOSE TWICE A DAY, BUT SHE ONLY TAKES IT ONCE A DAY BECAUSE SHE HAS SO MUCH GOING ON THAT SHE CAN'T SPEND ALL DAY IN THE BATHROOM BECAUSE OF THAT MEDICINE. TALKED WITH HER REGARDING THE IMPORTANCE OF TAKING HER MEDICATIONS ORDERED. SHE NODS HER HEAD IN UNDERSTANDING. NO ONE IS IN THE ROOM WITH HER AT THIS TIME. TOLD HER I WOULD RETURN TO TALK WITH HER AGAIN.
--- NOTE | 2019-05-21 14:34 | NUR ---
SPOKE AT LENGTH WITH PT'S DAUGHTER DANO CONCERNING DISCHARGE AND DISCHARGE INFORMATION. DANO EXPRESSED THAT SHE AND HER STEPDAD (PT'S ) COULD BENEFIT FROM MORE THOROUGH EDUCATION REGARDING PT'S DIAGNOSIS, HOME CARE, LACTULOSE ADMINISTRATION, AND WHEN TO SEEK MEDICAL ATTENTION. THIS RN GAVE EXTENSIVE VERBAL EDUCATION AND ANSWERED BOTH DANO AND PT'S QUESTIONS AT THIS TIME. NOTIFIED JOJO RN AND [facility] FOR[employer]IGN LANGUAGE INTERPRETER THAT DANO WOULD LIKE HERSELF AND PT TO BE PRESENT FOR DISCHARGE. ARNALDO CHARGE NURSE AWARE WELL.
--- NOTE | 2019-05-21 14:45 | NUR ---
INFORMED BY LEANDRA BLANCO THAT PT DAUGHTER WAS WANTING TO MAKE SURE AND SEE THAT THE PT AND PT DAUGHTER RECIEVE DC EDUCATION TOGETHER THE DAUGHTER THINKS THE PT IS NOT UNDERSTANDING ALL THE INSTRUCTIONS AND MEDICATION ADMINISTRATION. AFTER GOING OVER THE EDUCATION, SHE DENIED ANY FURTHER QUESTIONS.
--- NOTE | 2019-05-21 17:13 | NUR ---
PATIENT SITTING UP IN CHAIR. VITAL SIGNS AND I&O DONE. LOW BLOOD PRESSURE. RN NOTIFIED. CALL LIGHT WITHIN REACH. NO OTHER NEEDS AT THIS TIME
--- NOTE | 2019-05-21 17:45 | NUR ---
PT SITTING UP IN RECLINER ATE DINNER INDEPENDENTLY. APPETITE HAS IMPROVED. MENTAION IMPROVED WELL, PT MORE INTERACTIVE. DENIES NEEDS OR CONCERNS AT THIS TIME CALL LIGHT WITHIN REACH.
--- NOTE | 2019-05-21 19:35 | NUR ---
BEDSIDE REPORT RECEIVED FROM LEANDRA BLANCO. pt AWAKE, LYING IN BED. IN ROOM. CALL LIGHT NEXT TO pt. NO REQUESTS AT THIS TIME.
--- NOTE | 2019-05-21 22:30 | NUR ---
LARGE INCONTINENCE OF URINE AND STOOL. SEMI SOFT, LIQUID STOOL. 2PA TO BSC WITH FWW. pt WITH ANOTHER LARGE STOOL AT THIS TIME. LINENS, ATTENDS, GOWN CHANGED. GIORGI CARE COMPLETE, BARRIER CREAM APPLIED, GIORGI AREA REDDENDED, SCANT BLOOD NOTED. ASSESSMENT COMPLETE. pt DENIES PAIN, DENIES NAUSEA. ALERT AND ORIENTED X 4. pt UNABLE TO SENSE WHEN INCONTINENT. NO EDEMA NOTED BLE. LEGS ELEVATED. CALL LIGHT AND PERSONAL SUPPLIES IN REACH. ALLOTTED PO FLUIDS PROVIDED. IV SL WNL.
--- NOTE | 2019-05-22 00:39 | NUR ---
pt RESTING IN BED WITH EYES CLOSED, RR 20. APPEARS TO BE SLEEPING.
--- NOTE | 2019-05-22 02:43 | NUR ---
pt SLEEPING. AWAKENS TO VOICE. ATTENDS DRY. ASSESSMENT COMPLETE. BOWEL TONES ACTIVE X 4, ABD SOFT. pt DENIES PAIN, DENIES ANY ADDITIONAL REQUESTS. SCDS ON. NO EDEMA NOTED. BED ALARM ON.
--- NOTE | 2019-05-22 05:00 | NUR ---
CALL LIGHT ANSWERED. pt STATES "I NEED TO BE CHANGED". INCONTINENT OF URINE AND LARGE STOOL. ATTENDS, GOWN, CHUX CHANGED. VSS. APPLESAUCE PROVIDED REQUESTED. CALL LIGHT IN REACH. BED ALARM ON.
--- NOTE | 2019-05-22 08:00 | NUR ---
patient resting in bed with sitting by her. patient washed hands and face. break fast ordered. fresh ice water given. I talked to patient about a shower after breakfast if she's up to it. patient nodded her head with eyes closed. no other needs at this time. call button in reach.
--- NOTE | 2019-05-22 09:30 | NUR ---
MORNING ASSESSMENT DONE. PATIENT SITTING UP IN BED TO EAT BREAKFAST. MORNING MEDICATIONS GIVEN. SPIRONLACTONE HELD FOR 111/38 BP, PLAN TO UPDATE DR. BOB THAT IT WAS HELD. FAMILY IN ROOM WITH PATIENT. PATIENT ENDORSES THAT SHE WANTS TO GO HOME TODAY.
--- NOTE | 2019-05-22 10:19 | NUR ---
DR. BOB IN TO TALK TO PATIENT AND FAMILY REGARDING DISCHARGE. RIGHT ARM IV REMOVED WITH CATHETER INTACT. PATIENT PLANNING ON HAVING FOLLOW UP AT [facility] NEXT MONDAY, RECORDS PACKET PREPARED TO GO WITH.
--- NOTE | 2019-05-22 10:30 | NUR ---
In and spoke with Svitlana and Venessa. I was notified they did not want fu with [facility]. Daughter states they have an appt next with with [facility] sawmill equipment operator Don. Discussed this is a specialist and they will not follow pt here. She states her frustrations of seeing from [facility], [place], [place], and [facility]. Discussed the need to the a PCP as they are the gateman who over sees medicines and makes sure over all care is provided. Daughter states understanding and agrees to fu with [facility] and to have [facility] care nurses from [facility] assist her. Pt. will dc today. Discussion with spouse about need for pt to take lactulose as prescribed. He states she doesn't like to take as she has accidents at home and in public. Discussed scheduling medication around activities and family buying depends/pull ups for when is out and about. Family state understanding.
--- NOTE | 2019-05-22 11:19 | NUR ---
DISCHARGE PAPERS REVIEWED WITH PATIENT, DAUGHTER AND . D/C VITALS ARE STABLE.
--- NOTE | 2019-05-22 16:01 | NUR ---
Called and updated Mannie Ndiaye at [facility]. Will fax dc summary and discharge packet for teaching.
== END 2019-05-22 11:52 | disposition home or self-care (01) | DRG 443 ==
LOC: ED 08:31 → MS 15:03 → CCU 15:03 → MS 05-19 12:30
PROVIDERS: ADMIT Student in an Organized Health Care Education/Training Program
DX: K72.90 Hepatic failure, unspecified without coma (principal); K75.4 Autoimmune hepatitis; E03.9 Hypothyroidism, unspecified; K21.9 Gastro-esophageal reflux disease without esophagitis; D64.9 Anemia, unspecified; D69.6 Thrombocytopenia, unspecified; Z91.19 Patient's noncompliance with other medical treatment and regimen; Z79.2 Long term (current) use of antibiotics; Z79.891 Long term (current) use of opiate analgesic; Z79.899 Other long term (current) drug therapy
CPT/HCPCS: 36415; 74177; 80048; 80053; 81001; 82140; 83735; 84443; 85025; 96360; 97110; 97116; 97162; 97530; 99285-25; J7030; J7040; Q9967

== ENCOUNTER 2019-06-12 11:47 | Observation (INO) | payer MEDICARE, OTHER ==
[~2019-06-12] VITALS: Ht 165.1 cm; Wt 99.8 kg
--- OUTSIDE RECORDS SUMMARY | 2019-06-12 11:50 | XMS ---
PreManage Notification: LESLYE MAGANA [employer] Center Mgr Events No recent Security Events currently on file CRITERIA MET - 6 ED Visits in 6 Months - [facility] - Has Care Guidelines - [facility] - 3 Facilities in 90 Days - [facility] - 2 Visits in 30 Days CARE PROVIDERS TRUONG RUBI Internal Medicine: Pulmonary Disease Current PHONE: Unknown LANA MELCHOR [facility] 03/13/2018-Current PHONE: Unknown ANURADHA TAVARES Nurse Practitioner 11/06/2018-Current PHONE: [phone] Balbir [facility] 03/22/2019-Current PHONE: [phone] TRUONG RUBI Primary Care Current PHONE: Unknown Bianca has no Care Guidelines for this patient. 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 - MANUEL MEETS WITH PATIENT ONCE A WEEK. - PATIENT CHOOSES AT TIMES TO BE NON COMPLIANT WITH MEDICATIONS. - MANUEL MOBLEYCO FOUNDER AND CTO- IS FOLLOWING UP WITH PATIENT CLOSELY. 05/17/2018 [facility] - CHW CONTACTED WENDY AT [facility] RN CM- THEY HAVE BEEN DISCUSSING PATIENT CARE WITH PCP. - PATIENT DOES HAVE A [employer] SYSTEMS ADMINISTRATOR WHO IS BEING SEEN OUTSIDE OF THE [facility]. - PATIENT PCP IS AWARE OF PATIENT CURRENT MEDICAL CONDITIONS. E.D. VISIT COUNT ([address] [facility] [address] [facility] [address] [facility] 9 [facility] TOTAL 15 NOTE: Visits indicate total known visits. ED/UCC VISIT TRACKING (12 MO.) 06/12/2019 11:48 [facility] [place] TYPE: Emergency COMPLAINT: - HEADACHE 05/18/2019 08:32 [facility] [place] TYPE: Emergency COMPLAINT: - DISORIENTED 03/27/2019 13:28 [facility] TYPE: Emergency DIAGNOSES: - Chronic hepatic failure without coma - Other pancytopenia - Weakness - Localized edema - Dizziness 03/21/2019 20:00 [facility] TYPE: Emergency COMPLAINT: - ANASARCA 03/15/2019 17:50 [facility] Nat MONTANO TYPE: Emergency DIAGNOSES: - Leg Swelling - Lymphedema, not elsewhere classified - Leg Pain - Right Leg Pain 01/31/2019 19:52 [facility] TYPE: Emergency DIAGNOSES: - Autoimmune hepatitis - Abdominal Pain - Other ascites - Generalized abdominal pain 01/25/2019 10:28 [facility] TYPE: Emergency DIAGNOSES: 36951. ABDOMINAL PAIN 17049. Other cirrhosis of liver . Unspecified abdominal pain 60600. Constipation, unspecified 01/13/2019 [facility] DIAGNOSES: - Abdominal Pain - Other ascites - Abd pain - Unspecified abdominal pain 01/04/2019 07:25 [facility] TYPE: Emergency COMPLAINT: - SHAKY 12/30/2018 13:13 [facility] TYPE: Emergency COMPLAINT: - FOOT PAIN, INJ DIAGNOSES: - Pain in left foot - Striking against or struck by other objects, init encntr - Other jail (current) drug therapy - Contusion of left foot, initial encounter 11/05/2018 20:20 [facility] [place] TYPE: Emergency COMPLAINT: - ABDOMINAL PAIN DIAGNOSES: - Unspecified abdominal pain - Unspecified cirrhosis of liver - Other jail (current) drug therapy 11/01/2018 14:07 [facility] Onur [facility] TYPE: Emergency DIAGNOSES: - Abdominal Pain - Other ascites - abd pain 10/13/2018 20:27 [facility] [place] TYPE: Emergency COMPLAINT: - ABDOMINAL PAIN DIAGNOSES: - Other jail (current) drug therapy - Other ascites - Unspecified cirrhosis of liver - Unspecified abdominal pain 08/18/2018 22:04 [facility] [place] TYPE: Emergency COMPLAINT: - NAUSEA/TREMORS/DIARRHEA 07/23/2018 09:56 [facility] [place] TYPE: Emergency COMPLAINT: - ABD PAIN DIAGNOSES: - Other assistant terminal manager (current) drug therapy - Periumbilical pain - Acquired absence of other specified parts of digestive tract - Hypothyroidism, unspecified - Unspecified cirrhosis of liver - Acquired absence of both cervix and uterus INPATIENT VISIT TRACKING (12 MO.) 05/18/2019 15:03 [facility] TYPE: Medical Surgical COMPLAINT: - HEPATIC ENCEPHALOPATHY DIAGNOSES: - Autoimmune hepatitis - Patient's noncompliance w oth medical treatment and regimen - Other jail (current) drug therapy - [facility]PC (current) use of antibiotics - Thrombocytopenia, unspecified - Autoimmune hepatitis - Anemia, unspecified - Hepatic failure, unspecified without coma - Gastro-esophageal reflux disease without esophagitis - FPC (current) use of antibiotics - Patient's noncompliance w oth medical treatment and regimen - Hypothyroidism, unspecified - Thrombocytopenia, unspecified - Gastro-esophageal reflux disease without esophagitis - Anemia, unspecified - [facility]PC (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 analgesic - Hypothyroidism, unspecified - tank terminal gauger (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 analgesic - Other assistant terminal manager (current) drug therapy 03/21/2019 22:47 [facility] [place] TYPE: Medical Surgical COMPLAINT: - ANASARCA DIAGNOSES: - Generalized edema - Gastro-esophageal reflux disease without esophagitis - Cellulitis of right lower limb - Autoimmune hepatitis - Other assistant terminal manager (current) drug therapy - Hepatic failure, unspecified without coma - FPC (current) use of antibiotics - Fluid overload, unspecified - Other pancytopenia - Hypothyroidism, unspecified - Unspecified cirrhosis of liver 02/13/2019 08:21 [facility] TYPE: Interventional DIAGNOSES: 95223. Autoimmune hepatitis 22024. Other cirrhosis of liver 37813. Presence of other vascular implants and grafts 83037. Other ascites 01/04/2019 07:26 [facility] TYPE: Observation COMPLAINT: - HEPATIC ENCEPHALOPATHY DIAGNOSES: - Hypo-osmolality and hyponatremia - Unspecified cirrhosis of liver - FPC (current) use of antibiotics - Dizziness and giddiness - Other jail (current) drug therapy - [...] liver - Other jail (current) drug therapy - Autoimmune hepatitis - Nausea - Other hypotension - Dehydration - Altered mental status, unspecified - Chronic hepatic failure without coma [email or web address]
--- NOTE | 2019-06-12 17:30 | NUR ---
Patient arrives to the unit via hospital stretcher. Transfers to the bed with 2PA. Vital signs taken, assessment complete. Orders acknowledged. Patient denies pain or nausea. No needs at this time, call light within reach.
--- NOTE | 2019-06-12 17:44 | NUR ---
Dr. Wilkinson in room to discuss POC with patient
--- NOTE | 2019-06-12 18:00 | NUR ---
Patient sitting up in bed watching tv. Dinner delivered. LR running at 75 mls/hr. Family in room at bedside. Denies needs at this time, call light within reach.
--- NOTE | 2019-06-12 19:12 | NUR ---
SHIFT REPORT RECEIVED FROM KURT DEVLIN AT BEDSIDE. PT UP AND IN BATHROOM WITH HELP FROM KURT FUNES. BOARD UPDATED.
--- NOTE | 2019-06-12 20:12 | NUR ---
HELPED PT TO THE BATHROOM AND BACK TO BED WITH HER FWW. VITALS AND I&OS DONE AND CHARTED. FRESH SODA GIVEN PER PT REQUEST. BED ALARM SET. BEDSIDE TABLE AND CALL LIGHT IN REACH. INFORMED HER RN KRISH OF B\P
--- NOTE | 2019-06-12 20:30 | NUR ---
ASSESSMENT COMPLETE, SCHEDULED MEDS GIVEN (SEE EMAR). PT A/O TO NAME, , PLACE, AND EVENTS. REORIENTED TO DATE AND SURROUNDS. VSS, IV FLUIDS INFUSING AT 75MLS/HR, SITE WNL. KS REPORTS MINIMAL DISCOMFORT IN ABDOMEN, BUT DOES NOT DESCRIBE OR RATE. NO DISTRESS NOTED, WILL MONITOR. PT DROWSY AND WISHING TO REST, NO FURTHER NEEDS, CALL LIGHT IN REACH. BED ALARM ON.
--- NOTE | 2019-06-12 21:26 | NUR ---
PT CALLED TO USE BATHROOM, PASSED LARGE AMOUNT OF GAS WITH NO STOOL. MISSED THE MEASURING DEVICE IN TOILET WHEN VOIDING. SBA WITH FWW. PRIMO MANAGED CLEANING SELF AND CLOTHING.
--- NOTE | 2019-06-12 23:53 | NUR ---
PT RESTING IN BED WITH EYES CLOSED, RR WNL. NO DISTRESS NOTED. IV FLUIDS INFUSING AT 75MLS/HR. CALL LIGHT IN REACH AND BED ALARM ON FOR SAFETY.
--- NOTE | 2019-06-13 00:25 | NUR ---
PT RESTING IN BED WITH EYES CLOSED. RESPIRATIONS EVEN AND UNLABORED, NO DISTRESS NOTED. SCD'S ON, BED ALARM ON FOR SAFETY.
--- NOTE | 2019-06-13 02:20 | NUR ---
ASSESSMENT COMPLETE, NO NEW CHANGES OR CONCERNS. PT DROWSY AND SLOW TO RESPOND, BUT COMPLIES WITH ASKING OF TASKS. SCHEDULED LACTULOSE ADMINISTERED WITH GRAPE JUICE PER PT REQUEST. VSS, MANUAL BP TAKEN. PT REPORTS TOLERABLE 3/10 ABDOMINAL PAIN RELATED TO CRAMPING. SCD'S ON, NO FURTHER REQUESTS. IV FLUIDS INFUSING AT 75MLS/HR, SITE WNL. CALL LIGHT IN REACH. BED ALARM ON.
--- NOTE | 2019-06-13 03:04 | NUR ---
THIS RN TO ANSWER CALL LIGHT. PT REQUEST TO USE BATHROOM, SBA WITH FWW. VOID X1, NO BM. PT BACK IN BED, NO FURTHER NEEDS, CALL LIGHT IN REACH AND BED ALARM ON.
--- NOTE | 2019-06-13 03:34 | NUR ---
PT SBA WITH FWW BACK TO BED, BMX1 ALONG WITH UNMEASURED VOID. SNACK PROVIDED PER PT REQUEST, NO FURTHER NEEDS, CALL LIGHT IN REACH AND BED ALARM ON.
--- NOTE | 2019-06-13 05:36 | NUR ---
PT HAD UNEVENTFUL NIGHT, SLEPT OFF AND ON THIS SHIFT. VSS, SBP ON SOFTER SIDE. PT A/O TO SELF, PLACE, AND EVENTS. REORIENTED TO DATE AND SURROUNDINGS, FORGETFUL AT TIMES. BED ALARM ON FOR SAFETY. IV FLUIDS INFUSING AT 75MLS/HR, SITE WNL. 1PA WITH AMBULATION. REGULAR DIET, TOLERATING WELL. NO NAUSEA REPORTED. PT ON SCHEDULED LACTULOSE, BMX2 THIS SHIFT. VOISING QS. SCD'S ON.
--- NOTE | 2019-06-13 07:07 | NUR ---
PT RESTING IN SEMIFOWLERS POSITION IN BED. PT ALERT AND ORIENTED TO PERSON PLACE AND SITUATION. PT DENIES NEEDS OR CONCERNS AT THIS TIME. CALL LIGHT AND H2O IN REACH.
--- NOTE | 2019-06-13 07:11 | NUR ---
PT UP SBA WITH FWW TO BATHROOM, VOID X1. PT BACK TO BED, VSS, BP 98/48. JIG FILLER AWARE, PT ASYMPTOMATIC. SCHEDULED THYROID MED AND NEW BAG IV FLUIDS INFUSING AT 75MLS/HR, SITE WNL. NO FURTHER NEEDS. CALL LIGHT IN REACH.
--- NOTE | 2019-06-13 08:15 | NUR ---
PT ALERT AND ORIENTED X4. AM MEDS ADMINISTERED AND PT ASSESSMENT COMPLETED. CALL LIGHT AND H2O IN REACH. PT ASSISTED WITH DIALING HER DAUGHTER BUT NO ANSWERE. PT DENIES FURTHER NEEDS OR CONCERNS. PT DENIES NAUSEA,SOB PAIN OR ANY OTHER SYMPTOMS.
--- NOTE | 2019-06-13 10:06 | NUR ---
ORDERED PATIENT A FRUIT CUP. GOING TO GET HER ANOTHER LEMON AND KAKE POP CHANGED BED LINENS. PATIENT IS SITTING UP IN HER CHAIR EATING HER FRUIT.
--- NOTE | 2019-06-13 10:08 | NUR ---
SHE MIGHT TAKE A SHOWER WILL ASK AGAIN.
--- NOTE | 2019-06-13 10:58 | NUR ---
PT SITTING UP IN CHAIR ALERT AND ORIENTED X4. CALL LIGHT AND H2O IN REACH. PT DENIES NEEDS OR CONCERNS.
--- NOTE | 2019-06-13 11:21 | NUR ---
MED REC COMPLETE
--- NOTE | 2019-06-13 12:37 | NUR ---
TALKED WITH WENDY LAM FROM [facility] SHE STATES THAT SHE WAS TALKING WITH PT DAUGHTER BARRY SHE WAS TOLD THAT HER MOTHER IS NOT TAKING HER MEDS AND SHE IS REFUSING TO TAKE THEM. I TALKED WITH THE PT ABOUT THIS AND SHE STATES "I NEED TO HAVE HELP, I GET MY MORNING DOSE BUT DON'T HAVE HELP FOR ANY OTHER DOSES. WHEN MY IS NOT THERE TO HELP ME." I TALKED WITH THE PT EVERETT AND HE STATES HE IS THERE TO GIVE HER MEDS TO HER TWICE A DAY AND HE MAKES SURE SHE IS TAKING THEM--SAYS HE WATCHES HER TAKE THEM EVERY DAY. I GAVE LESLYE A BUSINESS CARD WITH WENDY LAM NAME AND THAT SHE WILL BE COMING TO THE PT HOUSE AT 0930 IN MORNING. PT EVERETT WAS SITTING THERE AND ALSO RECEIVED THIS INFORMATION. HE REPEATED, I ALWAYS GIVE HER HER MEDS 2 TIMES A DAY EVERY DAY.
--- NOTE | 2019-06-13 14:28 | NUR ---
TALKED TO WENDY RN FROM [facility], SHARED THE INFOR THE PATIENT AND HER SHARED WITH ME. WENDY CHECKED ON WHEN SHE LAST FILLED HER MEDS, SHE SAID THEY HAD A REFILL IN DEC, AND THEN ONE ON 06-04-19. WILL GIVE DR JACOBSON THIS INFORMATION.
== END 2019-06-13 13:20 | disposition home or self-care (01) ==
LOC: ED 11:47 → MS 11:49
PROVIDERS: ADMIT Internal Medicine
DX: K72.90 Hepatic failure, unspecified without coma (principal); K75.4 Autoimmune hepatitis; K74.60 Unspecified cirrhosis of liver; E03.9 Hypothyroidism, unspecified; K21.9 Gastro-esophageal reflux disease without esophagitis; Z79.899 Other long term (current) drug therapy
CPT/HCPCS: 36415; 80053; 81001; 82140; 85025; 96360; 96361; 99285-25; G0378; J7040; J7121

== ENCOUNTER 2019-09-02 23:34 | Emergency (ER) | payer MEDICARE, OTHER ==
[~2019-09-02] VITALS: Ht 165.1 cm; Wt 90.8 kg
--- OUTSIDE RECORDS SUMMARY | ~2019-09-02 | XMS | Encounter Summary ---
Demographics + + + | Address | [address] | | | [place] [address] | + + + | Home Phone | | + + + | Preferred Language | Unknown | + + + | Marital Status | | + + + | Uatsdin Affiliation | Unknown | + + + | Race | Unknown | + + + | Ethnic Group | Unknown | + + + Author + + + | Author | [facility] | | | and [place] | + + + | Organization | [facility] | | | and [place] | + + + | Address | Unknown | + + + | Phone | Unavailable | + + + Support + + + + + | Name | Relationship | Address | Phone | + + + + + | Zoran Whitley | ECON | [address] | | | | | [id number], [place] | | | | | [address] | | + + + + + | [place]ann [place] | ECON | [place] | | | | | [address] | | + + + + + Care Team Providers + +------+ + | Care Bolt Maker Name | Role | Phone | + +------+ + PCP | Unavailable | + +------+ + Reason for Visit + + + | Reason | Comments | + + + | Knee Pain | | + + + Auth/Cert +--------+--------+ + + + + | Status | Reason | Specialty | Diagnoses / | Referred By | Referred To | | | | | Procedures | Contact | Contact | +--------+--------+ + + + + | | | | | | | +--------+--------+ + + + + Encounter Details +--------+ + + + + | Date | Type | Department | Care Team | Description | +--------+ + + + + | 11/07/ | Emergency | [facility] | Velia Smith, | Inflammatory | | 2018 | | [facility] | MD [address] | arthritis (Primary | | | | CENTER [address] | [facility] [place] | Dx); Acute pain of | | | | [place] | [place] [address] | right knee | | | | [address] | [phone] | | | | | [phone] | | | | | | | Kermit Silverio MD | | | | | | [address] | | | | | | [place], [place] | | | | | | [address] | | | | | | | | +--------+ + + + [...] + + + | Blood Pressure | 127/56 | 11/07/2017 8:57 PM | | | | | PDT | | + + + + + | Pulse | 76 | 11/07/2017 8:57 PM | | | | | PDT | | + + + + + | Temperature | 37.1 C (98.7 F) | 11/07/2017 4:37 PM | | | | | PDT | | + + + + + | Respiratory Rate | 16 | 11/07/2017 7:08 PM | | | | | PDT | | + + + + + | Oxygen Saturation | 98% | 11/07/2017 8:57 PM | | | | | PDT | | + + + + + | Inhaled Oxygen | - | - | | | Concentration | | | | + + + + + | Weight | - | - | | + + + + + | Height | 165.1 cm (5' 5") | 11/07/2017 4:37 PM | | | | | PDT | | + + + + + | Body Mass Index | - | - | | + + + + + documented in this encounter Discharge Instructions Instructions Velia Smith MD - 11/07/2017Yonisee brace for up to 2 weeks Crutches Medrol Dosepak Oxycodone for Pain Benadryl for itching Follow-up with orthopedics AttachmentsThe following attachments cannot be sent through Care Everywhere.Knee Pain (Engl orion)Osteoarthritis, 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 | | | | | + + + +---------+ + + | azaTHIOprine | Take 25 mg by mouth | | 0 | | | | (IMURAN) 50 mg | Daily. | | | | | | tablet | | | | | | + + + +---------+ + + | beclomethasone | Inhale 2 puffs into | 1 | 5 | 10/20/19 | | | (QVAR) 80 mcg/puff | the lungs Daily. | Inhaler | | 18 | | | inhalerIndications: | | | | | | | Mild persistent | | | | | | | asthma without | | | | | | | complication | | | | | | + + + +---------+ + + | diphenhydrAMINE | Take 1 tablet by | 30 | 0 | 11/08/19 | | | (BENADRYL) 50 MG | mouth every 6 hours | tablet | | 18 | | | tablet | as needed for | | | | | | | Itching (swelling) | | | | | | | for up to 30 doses. | | | | | + + + +---------+ + + | fexofenadine | Take 180 mg by mouth | | 0 | 01/12/20 | | | (JELANI) 180 mg | Daily as needed. | | | 12 | | | tablet | | | | | | + + + +---------+ + + | furosemide (LASIX) | | | 0 | 08/22/19 | | | 80 mg tablet | | | | 18 | | + + + +---------+ + + | levothyroxine | Take 100 mcg by | | 0 | 06/12/19 | | | (SYNTHROID, | mouth every morning | | | 16 | | | LEVOTHROID) 100 mcg | (before breakfast). | | | | | | tablet | | | | | | + + + +---------+ + + | methylPREDNISolone | Follow package | 21 | 0 | 11/08/19 | | | (MEDROL DOSEPAK) 4 | directions. | tablet | | 18 | | | mg tablet | | | | | | + + + +---------+ + + | omeprazole | Take 40 mg by mouth | | 0 | 06/12/19 | | | (PRILOSEC) 40 MG | every morning | | | 16 | | | capsule | (before breakfast). | | | | | + + + +---------+ + + | propranolol | Take 20 mg by mouth | | 0 | | | | (INDERAL) 20 MG | 2 times daily. | | | | | | tablet | Patient states only | | | | | | | taking one in the | | | | | | | morning | | | | | + + + +---------+ + + | simethicone | Take 160 mg by mouth | | 0 | | | | (MYLICON) 80 mg | as needed for | | | | | | chewable tablet | Flatulence. | | | | | + + + +---------+ + + | spironolactone | Take 100 mg by mouth | | 0 | 01/12/20 | | | (ALDACTONE) 100 MG | Daily. | | | 12 | | | tablet | | | | | | + + + +---------+ + + | tolterodine | Take 4 mg by mouth | | 0 | 11/25/19 | | | (DETROL LA) 4 MG 24 | Daily. | | | 16 | | | hr capsule | | | | | | + + + +---------+ + + | zolpidem (AMBIEN) | Take 5 mg by mouth | | 0 | 11/04/19 | | | 5 mg tablet | nightly as needed. | | | 16 | | + + + +---------+ + + | oxyCODONE | Take 1-2 tablets by | 15 | 0 | 11/08/19 | | | (ROXICODONE) 5 mg | mouth every 4 hours | tablet | | 18 | 8 | | tablet | as needed for Pain. | | | | | + + + +---------+ + + documented as of this encounter Plan of Treatment Not on filedocumented as of this encounter Procedures + +--------+ + + + | Procedure Name | Priori | Date/Time | Associated Diagnosis | Comments | | | ty | | | | + +--------+ + + + | CULTURE, BODY FLUID, | STAT | 11/07/2017 | | Results for this | | AEROBE | | 7:36 PM | | procedure are in the | | | | PDT | | results section. | + +--------+ + + + | CULTURE, BODY FLUID, | STAT | 11/07/2017 | | Results for this | | ANAEROBE | | 7:36 PM | | procedure are in the | | | | PDT | | results section. | + +--------+ + + + | CULTURE, BODY FLUID, | STAT | 11/07/2017 | | Results for this | | STERILE, SMEAR, | | 7:36 PM | | procedure are in the | | WITH ANAEROBES | | PDT | | results section. | + +--------+ + + + | ARTHROCENTESIS | Routin | 11/07/2017 | | Results for this | | | e | 7:35 PM | | procedure are in the | | | | PDT | | results section. | + +--------+ + + + | CRYSTAL | STAT | 11/07/2017 | | Results for this | | IDENTIFICATION, BODY | | 7:35 PM | | procedure are in the | | FLUID | | PDT | | results section. | + +--------+ + + + | CELL COUNT WITH | STAT | 11/07/2017 | | Results for this | | DIFFERENTIAL, BODY | | 7:35 PM | | procedure are in the | | FLUID | | PDT | | results section. | + +--------+ + + + | VAS LOWER EXTREMITY | Routin | 11/07/2017 | | Results for this | | VENOUS RIGHT | e | 6:45 PM | | procedure are in the | | | | PDT | | results section. | + +--------+ + + + | EXTRA LAVENDER TOP | Routin | 11/07/2017 | | Results for this | | TUBE | e | 5:49 PM | | procedure are in the | | | | PDT | | results section. | + +--------+ + + + | EXTRA GREEN TOP TUBE | Routin | 11/07/2017 | | Results for this | | | e | 5:49 PM | | procedure are in the | | | | PDT | | results section. | + +--------+ + + + | EXTRA GOLD TOP TUBE | Routin | 11/07/2017 | | Results for this | | | e | 5:49 PM | | procedure are in the | | | | PDT | | results section. | + +--------+ + + + | EXTRA BLUE TOP TUBE | Routin | 11/07/2017 | | Results for this | | | e | 5:49 PM | | procedure are in the | | | | PDT | | results section. | + +--------+ + + + | SEDIMENTATION RATE | STAT | 11/07/2017 | | Results for this | | | | 5:49 PM | | procedure are in the | | | | PDT | | results section. | + +--------+ + + + | CBC WITH | STAT | 11/07/2017 | | Results for this | | DIFFERENTIAL | | 5:49 PM | | procedure are in the | | | | PDT | | results section. | + +--------+ + + + | C-REACTIVE PROTEIN, | STAT | 11/07/2017 | | Results for this | | HIGH SENSITIVITY | | 5:49 PM | | procedure are in the | | | | PDT | | results section. | + +--------+ + + + | BASIC METABOLIC | STAT | 11/07/2017 | | Results for this | | PANEL | | 5:49 PM | | procedure are in the | | | | PDT | | results section. | + +--------+ + + + | XR KNEE RIGHT 3 VW | STAT | 11/07/2017 | | Results for this | | | | 4:59 PM | | procedure are in the | | | | PDT | | results section. | + +--------+ + + + documented in this encounter Results Culture, Body Fluid, Anaerobe (11/07/2017 7:36 PM PDT) + + + + + + | Component | Value | Ref Range | Performed | Pathologist | | | | | At | Signature | + + + + + + | Culture | No anaerobes isolated. | | [facility] | | | | | | [facility] | | | | | | [facility] | | | | | | C[facility] - | | | | | | LABORATORY | | + + + + + + + + | Specimen | + + | Body Fluid - Entire | | knee joint (body | | structure) | + + + + + + + | Performing | Address | City/State/Zipcode | Phone Number | | Organization | | | | + + + + + | [facility] | [address] | [place] | [phone] | | [facility] | | [address] | | | - LABORATORY | | | | + + + + + Culture, Body Fluid, Aerobe (11/07/2017 7:36 PM PDT) + + + + + + | Component | Value | Ref Range | Performed | Pathologist | | | | | At | Signature | + + + + + + | Culture | No Growth | | [facility] | | | | | | [facility] | | | | | | [facility] | | | | | | CENTER - | | | | | | LABORATORY | | + + + + + + | Gram Stain | 1+ White Blood Cells | | [facility] | | | Result | | | [facility] | | | | | | MEDICAL | | | | | | CENTER - | | | | | | LABORATORY | | + + + + + + | Gram Stain | No organisms | | [facility] | | | Result | seenComment: qc ok | | [facility] | | | | | | MEDICAL | | | | | | CENTER - | | | | | | LABORATORY | | + + + + + + + + | Specimen | + + | Body Fluid - Entire | | knee joint (body | | structure) | + + + + + + + | Performing | Address | City/State/Zipcode | Phone Number | | Organization | | | | + + + + + | [facility] | [address] | [place] | [phone] | | [facility] | | [address] | | | - LABORATORY | | | | + + + + + ARTHROCENTESIS (11/07/2017 7:35 PM PDT) + + + | Narrative | Performed At | + + + | Velia Smith MD 11/07/2017 19:36 Arthrocentesis | | | Date/Time: 11/07/2017 19:35 Performed by: VELIA SMITH | | | Authorized by: VELIA SMITH Consent: Consent obtained: | | | Verbal Consent given by: Patient Risks discussed: | | | Bleeding, infection, pain and incomplete drainage Alternatives | | | discussed: No treatment Location: Location: Knee Knee: | | | R knee Anesthesia: Anesthesia method: Local infiltration | | | Local anesthetic: Lidocaine 2% w/o epi Procedure details: | | | Preparation: Patient was prepped and draped in usual sterile fashion | | | Needle gauge: 18 G Ultrasound guidance: no | | | Approach: Medial Aspirate amount: 10 ml Aspirate | | | characteristics: Blood-tinged Steroid injected: no | | | Specimen collected: yes Post-procedure details: Dressing: | | | Adhesive bandage Patient tolerance of procedure: Tolerated | | | well, no immediate complications Comments: Positive string | | | sign | | + + + Crystal Identification, Body Fluid (11/07/2017 7:35 PM PDT) + + + + + + | Component | Value | Ref Range | Performed | Pathologist | | | | | At | Signature | + + + + + + | Specimen | Joint, Knee, Right | | [facility] | | | Source | | | [facility] | | | | | | MEDICAL | | | | | | CENTER - | | | | | | LABORATORY | | + + + + + + | Crystals | No Crystals Seen | No Crystals | [facility] | | | Body Fluid, | | Seen | [facility] | | | Qual | | | MEDICAL | | | | | | CENTER - | | | | | | LABORATORY | | + + + + + + + + | Specimen | + + | Body Fluid - Entire | | knee joint (body | | structure) | + + + + + + + | Performing | Address | City/State/Zipcode | Phone Number | | Organization | | | | + + + + + | [facility] | [address] | [place] | [phone] | | [facility] | | [address] | | | - LABORATORY | | | | + + + + + Cell Count with Differential, Body Fluid (11/07/2017 7:35 PM PDT) + + + + + + | Component | Value | Ref Range | Performed | Pathologist | | | | | At | Signature | + + + + + + | Specimen | Joint, Knee, Right | | [facility] | | | Source | | | [facility] | | | | | | MEDICAL | | | | | | CENTER - | | | | | | LABORATORY | | + + + + + + | BF | Grossly Bloody (A) | Clear | [facility] | | | Appearance | | | [facility] | | | | | | MEDICAL | | | | | | CENTER - | | | | | | LABORATORY | | + + + + + + | BF | 631 (H) | 0 - 150 | [facility] | | | Nucleated | | cells/uL | [facility] | | | cells | | | MEDICAL | | | | | | CENTER - | | | | | | LABORATORY | | + + + + + + | BF RBC | 247,856 | cells/uL | [facility] | | | | | | [facility] | | | | | | MEDICAL | | | | | | CENTER - | | | | | | LABORATORY | | + + + + + + | BF % | 70 | % | [facility] | | | Neutrophils | | | [facility] | | | | | | MEDICAL | | | | | | CENTER - | | | | | | LABORATORY | | + + + + + + | BF % | 25 | % | [facility] | | | Lymphocytes | | | [facility] | | | | | | MEDICAL | | | | | | CENTER - | | | | | | LABORATORY | | + + + + + + | BF % | 3 | % | [facility] | | | Macro/Mason | | | [facility] | | | | | | MEDICAL | | | | | | CENTER - | | | | | | LABORATORY | | + + + + + + | BF % | 2 | % | [facility] | | | Eosinophils | | | [facility] | | | | | | MEDICAL | | | | | | CENTER - | | | | | | LABORATORY | | + + + + + + | BF Total | 100 | | [facility] | | | Cells | | | [facility] | | | counted | | | MEDICAL | | | | | | CENTER - | | | | | | LABORATORY | | + + + + + + + + | Specimen | + + | Body Fluid - Entire | | knee joint (body | | structure) | + + + + + + + | Performing | Address | City/State/Zipcode | Phone Number | | Organization | | | | + + + + + | [facility] | [address] | [place] | [phone] | | [facility] | | [address] | | | - LABORATORY | | | | + + + + + VAS Lower Extremity Venous Right (11/07/2017 6:45 PM PDT) + + | Specimen | + + | | + + + + + | Narrative | Performed At | + + + | TECHNIQUE: Right lower extremity B-mode ultrasound with color and | [facility] | | duplex Doppler. CLINICAL INFORMATION: ro clot. COMPARISON: | | | None available. FINDINGS: Normal flow, compressibility and | | | augmentation of the visualized deep venous structures. Mild | | | subcutaneous soft tissue edema noted at the posterior right calf in | | | the area of pain. IMPRESSION - No evidence of DVT. Mild | | | subcutaneous soft tissue edema corresponding to the right calf in the | | | area of pain. Notification: A preliminary report was relayed | | | to the ordering provider by the public health technologist immediately | | | following the exam. Dictated and Signed by: Kunal Parrish MD | | | Electronically signed: 11/07/2017 8:20 PM | | + + + + + | Procedure Note | + + | Jacobo Haider Results In - 11/07/2017 8:23 PM PDT | | TECHNIQUE: Right lower extremity B-mode ultrasound with color and duplex | | Doppler. | | | | CLINICAL INFORMATION: ro clot. | | | | COMPARISON: None available. | | | | FINDINGS: Normal flow, compressibility and augmentation of the visualized deep | | venous structures. Mild subcutaneous soft tissue edema noted at the posterior | | right calf in the area of pain. | | | | IMPRESSION - | | No evidence of DVT. | | | | Mild subcutaneous soft tissue edema corresponding to the right calf in the area | | of pain. | | | | Notification: A preliminary report was relayed to the ordering provider by the | | public health technologist immediately following the exam. | | | | Dictated and Signed by: Kunal Parrish MD | | Electronically signed: 11/07/2017 8:20 PM | + + + +---------+ + + | Performing | Address | City/State/Zipcode | Phone Number | | Organization | | | | + +---------+ + + | [facility] | | | | + +---------+ + + Extra Gold Top Tube (11/07/2017 5:49 PM PDT) + +-------+ + + + | Component | Value | Ref Range | Performed | Pathologist | | | | | At | Signature | + +-------+ + + + | Extra Gold | Done | | [facility] | | | Top Tube | | | [facility] | | | | | | MEDICAL | | | | | | CENTER - | | | | | | LABORATORY | | + +-------+ + + + + + | Specimen | + + | Blood | + + + + + + + | Performing | Address | City/State/Zipcode | Phone Number | | Organization | | | | + + + + + | [facility] | [address] | [place] | [phone] | | [facility] | | [address] | | | - LABORATORY | | | | + + + + + Extra Lavender Top Tube (11/07/2017 5:49 PM PDT) + +-------+ + + + | Component | Value | Ref Range | Performed | Pathologist | | | | | At | Signature | + +-------+ + + + | Extra | Done | | [facility] | | | Lavender | | | [facility] | | | Top Tube | | | MEDICAL | | | | | | CENTER - | | | | | | LABORATORY | | + +-------+ + + + + + | Specimen | + + | Blood | + + + + + + + | Performing | Address | City/State/Zipcode | Phone Number | | Organization | | | | + + + + + | [facility] | [address] | [place] | [phone] | | [facility] | | [address] | | | - LABORATORY | | | | + + + + + Extra Green Top Tube (11/07/2017 5:49 PM PDT) + +-------+ + + + | Component | Value | Ref Range | Performed | Pathologist | | | | | At | Signature | + +-------+ + + + | Extra Green | Done | | [facility] | | | Top Tube | | | [facility] | | | | | | MEDICAL | | | | | | CENTER - | | | | | | LABORATORY | | + +-------+ + + + + + | Specimen | + + | Blood | + + + + + + + | Performing | Address | City/State/Zipcode | Phone Number | | Organization | | | | + + + + + | [facility] | [address] | [place] | [phone] | | [facility] | | [address] | | | - LABORATORY | | | | + + + + + Extra Blue Top Tube (11/07/2017 5:49 PM PDT) + +-------+ + + + | Component | Value | Ref Range | Performed | Pathologist | | | | | At | Signature | + +-------+ + + + | Extra Blue | Done | | [facility] | | | Top Tube | | | [facility] | | | | | | MEDICAL | | | | | | CENTER - | | | | | | LABORATORY | | + +-------+ + + + + + | Specimen | + + | Blood | + + + + + + + | Performing | Address | City/State/Zipcode | Phone Number | | Organization | | | | + + + + + | [facility] | [address] | [place] | [phone] | | [facility] | | [address] | | | - LABORATORY | | | | + + + + + C-Reactive Protein, High Sensitivity (11/07/2017 5:49 PM PDT) + + + + + + | Component | Value | Ref Range | Performed | Pathologist | | | | | At | Signature | + + + + + + | CRP, High | 8.63 (H) | <=3.00 mg/L | [facility] | | | Sensitive | | | [facility] | | | | | | MEDICAL | | | | | | CENTER - | | | | | | LABORATORY | | + + + + + + + + | Specimen | + + | Blood | + + + + + + + | Performing | Address | City/State/Zipcode | Phone Number | | Organization | | | | + + + + + | [facility] | [address] | [place] | [phone] | | [facility] | | [address] | | | - LABORATORY | | | | + + + + + Sedimentation Rate (11/07/2017 5:49 PM PDT) + +--------+ + + + | Component | Value | Ref Range | Performed | Pathologist | | | | | At | Signature | + +--------+ + + + | Erythrocyte | 70 (H) | <30 mm/hr | [facility] | | | | | | [facility] | | | Sedimentati | | | MEDICAL | | | on Rate | | | CENTER - | | | | | | LABORATORY | | + +--------+ + + + + + | Specimen | + + | Blood | + + + + + + + | Performing | Address | City/State/Zipcode | Phone Number | | Organization | | | | + + + + + | [facility] | [address] | [place], [place] | [phone] | | [facility] | | [address] | | | - LABORATORY | | | | + + + + + Basic Metabolic Panel (11/07/2017 5:49 PM PDT) + + + + + + | Component | Value | Ref Range | Performed | Pathologist | | | | | At | Signature | + + + + + + | Na | 136 | 136 - 149 | [facility] | | | | | mmol/L | [facility] | | | | | | MEDICAL | | | | | | CENTER - | | | | | | LABORATORY | | + + + + + + | K | 4.2 | 3.5 - 5.1 | [facility] | | | | | mmol/L | [facility] | | | | | | MEDICAL | | | | | | CENTER - | | | | | | LABORATORY | | + + + + + + | Cl | 105 | 98 - 109 mmol/L | [facility] | | | | | | [facility] | | | | | | MEDICAL | | | | | | CENTER - | | | | | | LABORATORY | | + + + + + + | CO2 | 26 | 24 - 31 mmol/L | [facility] | | | | | | [facility] | | | | | | MEDICAL | | | | | | CENTER - | | | | | | LABORATORY | | + + + + + + | Anion Gap | 5 | 3 - 16 mmol/L | [facility] | | | | | | [facility] | | | | | | MEDICAL | | | | | | CENTER - | | | | | | LABORATORY | | + + + + + + | Glucose | 209 (H) | 70 - 109 mg/dL | [facility] | | | | | | [facility] | | | | | | MEDICAL | | | | | | CENTER - | | | | | | LABORATORY | | + + + + + + | BUN | 10 | 7 - 18 mg/dL | [facility] | | | | | | [facility] | | | | | | MEDICAL | | | | | | CENTER - | | | | | | LABORATORY | | + + + + + + | Creatinine | 0.89 | 0.60 - 1.30 | [facility] | | | | | mg/dL | [facility] | | | | | | MEDICAL | | | | | | CENTER - | | | | | | LABORATORY | | + + + + + + | eGFR if not | >60Comment: GLOMERULAR | >=60 | [facility] | | | | FILTRATION | mL/min/1.73m2 | [facility] | | | NIUEAN | RATE,ESTIMATED | | MEDICAL | | | | mL/min/1.44i7Hjfp than | | CENTER - | | | | 60 Chronic kidney | | LABORATORY | | | | disease,if found over a | | | | | | 3-month period.Less than | | | | | | 15 Kidney failureFor | | | | | | | | | | | | Americans,multiply the | | | | | | calculated GFR by 1.21. | | | | | | | | | | + + + + + + | Calcium | 8.6 | 8.3 - 10.5 | [facility] | | | | | mg/dL | [facility] | | | | | | MEDICAL | | | | | | CENTER - | | | | | | LABORATORY | | + + + + + + | BUN/Creatin | 11.2 | | [facility] | | | ine Ratio | | | [facility] | | | | | | MEDICAL | | | | | | CENTER - | | | | | | LABORATORY | | + + + + + + + + | Specimen | + + | Blood | + + + + + + + | Performing | Address | City/State/Zipcode | Phone Number | | Organization | | | | + + + + + | [facility] | [address] | [place] | [phone] | | [facility] | | [address] | | | - LABORATORY | | | | + + + + + CBC with Differential (11/07/2017 5:49 PM PDT) + + + + + + | Component | Value | Ref Range | Performed | Pathologist | | | | | At | Signature | + + + + + + | WBC | 4.6 | 4.0 - 11.0 K/uL | [facility] | | | | | | [facility] | | | | | | MEDICAL | | | | | | CENTER - | | | | | | LABORATORY | | + + + + + + | RBC | 4.02 | 3.70 - 5.20 | [facility] | | | | | M/uL | [facility] | | | | | | MEDICAL | | | | | | CENTER - | | | | | | LABORATORY | | + + + + + + | Hemoglobin | 12.8 | 11.5 - 16.0 | [facility] | | | | | g/dL | [facility] | | | | | | MEDICAL | | | | | | CENTER - | | | | | | LABORATORY | | + + + + + + | Hematocrit | 38.0 | 34.0 - 47.0 % | [facility] | | | | | | [facility] | | | | | | [facility] | | | | | | [facility] - | | | | | | LABORATORY | | + + + + + + | MCV | 94.5 | 83.0 - 101.0 fL | [facility] | | | | | | [facility] | | | | | | [facility] | | | | | | C[facility] - | | | | | | LABORATORY | | + + + + + + | MCH | 31.8 | 28.0 - 35.0 pg | [facility] | | | | | | [facility] | | | | | | [facility] | | | | | | [facility] - | | | | | | LABORATORY | | + + + + + + | MCHC | 33.6 | 32.0 - 36.0 | [facility] | | | | | g/dL | [facility] | | | | | | [facility] | | | | | | C[facility] - | | | | | | LABORATORY | | + + + + + + | RDW-CV | 15.0 (H) | <15.0 % | [facility] | | | | | | [facility] | | | | | | [facility] | | | | | | [facility] - | | | | | | LABORATORY | | + + + + + + | Platelet | 79 (L) | 140 - 440 K/uL | [facility] | | | Count | | | [facility] | | | | | | [facility] | | | | | | [facility] - | | | | | | LABORATORY | | + + + + + + | MPV | 9.4 | fL | [facility] | | | | | | [facility] | | | | | | [facility] | | | | | | [facility] - | | | | | | LABORATORY | | + + + + + + | % | 79.9 | 45.0 - 82.0 % | [facility] | | | Neutrophils | | | [facility] | | | | | | [facility] | | | | | | CENTER - | | | | | | LABORATORY | | + + + + + + | % | 10.1 (L) | 20.0 - 45.0 % | [facility] | | | Lymphocytes | | | [facility] | [facility] | [facility] | | [facility] - | | | | | | LABORATORY | | + + + + + + | % Monocytes | 8.2 | 4.0 - 12.0 % | [facility] | | | | | | [facility] | | | | | | [facility] | | | | | | [facility] - | | | | | | LABORATORY | | + + + + + + | % | 1.2 | 0.0 - 5.0 % | [facility] | | | Eosinophils | | | [facility] | | | | | | [facility] | | | | | | [facility] - | | | | | | LABORATORY | | + + + + + + | % Basophils | 0.6 | 0.0 - 1.0 % | [facility] | | | | | | [facility] | [facility] | [facility] | | | | | | [facility] - | | | | | | LABORATORY | | + + + + + + | Absolute | 3.70 | 1.80 - 8.50 | [facility] | | | Neutrophils | | K/uL | [facility] | | | | | | [facility] | | | | | | [facility] - | | | | | | LABORATORY | | + + + + + + | Absolute | 0.50 (L) | 0.60 - 3.20 | [facility] | | | Lymphocytes | | K/uL | [facility] | | | | | | [facility] | | | | | | [facility] - | | | | | | LABORATORY | | + + + + + + | Absolute | 0.40 | 0.00 - 1.00 | [facility] | | | Monocytes | | K/uL | [facility] | | | | | | [facility] | | | | | | [facility] - | | | | | | LABORATORY | | + + + + + + | Absolute | 0.10 | 0.00 - 0.40 | [facility] | | | Eosinophils | | K/uL | [facility] | | | | | | [facility] | | | | | | [facility] - | | | | | | LABORATORY | | + + + + + + | Absolute | 0.00 | 0.00 - 0.10 | [facility] | | | Basophils | | K/uL | [facility] | | | | | [facility] | | | | | | [facility] - | | | | | | LABORATORY | | + + + + + + + + | Specimen | + + | Blood | + + + + + + + | Performing | Address | City/State/Zipcode | Phone Number | | Organization | | | | + + + + + | [facility] | [address] | [place] | [phone] | | [facility] | | [address] | | | - LABORATORY | | | | + + + + + XR Knee Right 3 Vw (11/07/2017 4:59 PM PDT) + + | Specimen | + + | | + + + + + | Narrative | Performed At | + + + | CLINICAL INFORMATION: KNEE PAIN. COMPARISON: None available. | [facility] | | FINDINGS: 3 views of the right knee. Bones: No fracture or | | | dislocation. No periostitis or erosion. Joints: Tricompartment | | | osteophyte formation with mild joint space narrowing. Mild joint | | | effusion. Soft tissue: Distal quadriceps and proximal patellar | | | tendon enthesophytes are noted. IMPRESSION - No acute osseous | | | abnormality. 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 Dictated and Signed by: Kunal Parrish MD | | | Electronically signed: 11/07/2017 5:58 PM | | + + + + + | Procedure Note | + + | Vitaly, Rad Results In - 11/07/2017 6:01 PM PDT CLINICAL INFORMATION: KNEE PAIN. | | | | COMPARISON: None available. | | | | FINDINGS: | | 3 views of the right knee. | | | | Bones: No fracture or dislocation. No periostitis or erosion. | | | | Joints: Tricompartment osteophyte formation with mild joint space narrowing. | | Mild joint effusion. | | | | Soft tissue: Distal quadriceps and proximal patellar tendon enthesophytes are | | noted. | | | | IMPRESSION - | | No acute osseous abnormality. | | | | Tricompartment osteoarthritis with mild joint effusion. | | | | Dictated and Signed by: Kunal Francois, MD | | Electronically signed: 11/07/2017 5:58 PM | + + + +---------+ + + | Performing | Address | City/State/Zipcode | Phone Number | | Organization | | | | + +---------+ + + | [facility] | | | | + +---------+ + + documented in this encounter Visit Diagnoses + + | Diagnosis | + + | Inflammatory arthritis - Primary Unspecified inflammatory polyarthropathy | + + | Acute pain of right knee | + + documented in this encounter Administered Medications + +--------+ +-------+------+------+ | Medication Order | MAR | Action | Dose | Rate | Site | | | Action | Date | | | | + +--------+ +-------+------+------+ | dexamethasone (DECADRON) tablet | Given | 11/08/19 | 10 mg | | | | 10 mg 10 mg, Oral, ONCE, Tue | | 18 8:58 | | | | | 11/07/17 at 2045, For 1 dose | | PM PDT | | | | + +--------+ +-------+------+------+ +---+---+ | | | +---+---+ + +-------+ +--------+---+---+ | HYDROmorphone (DILAUDID) | Given | 11/08/19 | 0.5 mg | | | | injection 0.5 mg 0.5 mg, | | 18 7:08 | | | | | Intravenous, EVERY 15 MIN PRN, | | PM PDT | | | | | Pain, Starting Mon11/07/17 at | | | | | | | 1734, For 4 doses | | | | | | + +-------+ +--------+---+---+ +-------+ +--------+---+---+ | Given | 11/08/19 | 0.5 mg | | | | | 18 5:47 | | | | | | PM PDT | | | | +-------+ +--------+---+---+ +---+---+ | | | +---+---+ + +-------+ +-------+---+---+ | ketorolac (TORADOL) injection | Given | 11/08/19 | 30 mg | | | | 30 mg 30 mg, Intravenous, ONCE, | | 18 8:01 | | | | | 11/07/17 at 1940, For 1 dose | | PM PDT | | | | + +-------+ +-------+---+---+ +---+---+ | | | +---+---+ + +-------+ +------+---+---+ | ondansetron (ZOFRAN) injection | Given | 11/08/19 | 4 mg | | | | 4 mg 4 mg, Intravenous, ONCE, | | 18 5:45 | | | | | Ute 11/07/17 at 1740, For 1 dose | | PM PDT | | | | + +-------+ +------+---+---+ +---+---+ | | | +---+---+ documented in this encounter
--- OUTSIDE RECORDS SUMMARY | ~2019-09-02 | XMS | Encounter Summary ---
Demographics + + + | Address | [address] | | | [place] [address] | + + + | Home Phone | | + + + | Preferred Language | Unknown | + + + | Marital Status | | + + + | Religion Affiliation | Unknown | + + + | Race | Unknown | + + + | Ethnic Group | Unknown | + + + Author + + + | Author | [facility] | | | and [place] | + + + | Organization | [facility] | | | and [place] | + + + | Address | Unknown | + + + | Phone | Unavailable | + + + Support + + + + + | Name | Relationship | Address | Phone | + + + + + | Zoran Whitley | ECON | [address] | | | | | [id number], [place] | | | | | [address] | | + + + + + | Roseann Walker | ECON | [place] | | | | | [address] | | + + + + + Care Team Providers + +------+ + | Care Hunter Skin Diver Name | Role | Phone | + [...] | Disease / | Mild | Morgan Vale DO | MD Duncan | | | | Pulmonology | intermittent | [address] | [address] | | | | | asthma, | [address] | [place], | | | | | uncomplicate | [place], | [place] [address] | | | | | d | [place] [address] | Phone: | | | | | Procedures | Phone: | [phone] | | | | | FU | [phone] | Fax: | | | | | | Fax: | [phone] | | | | | | [phone] | | +--------+--------+ + + + + Encounter Details +--------+---------+ + + + | Date | Type | Department | Care Team | Description | +--------+---------+ + + + | 10/19/ | Office | [facility] | Duncan Bass, | Mild persistent | | 2018 | Visit | PULMONARY [address] | MD [address] | asthma without | | | | [place], | [place], [place] | complication | | | | [place] [address] | [address] | (Primary Dx); Need | | | | [phone] | | for pneumococcal | | | [...] more than every 4 hours, contact your [facility] provider or seek immediate medical attention. [...] don't already have one, talk to your health are provider about developing your own "Asthma [...] turning ching or blue Date Last Reviewed: 08/29/201619999504-7795 [employer]. [address] [place] [address], [place] [address]. All righ ts reserved. This information is [...] feet at their own pace on level [facility] before becoming symptomatic. They are not exercising [...] Osteoporosis Pneumonia Pneumonia 07/30/2017 admitted overnight at [facility] Sensorineural hearing loss Thrombocytopenia (HCC) [...] 40 mg by mouth every morning (before breakfa st)., Disp: , Rfl: propranolol (INDERAL) 20 MG [...] appointment in 6 months time. CC: Morgan Conner DO Tdocumented in this encounter Plan of [...]
--- OUTSIDE RECORDS SUMMARY | ~2019-09-02 | XMS | Encounter Summary ---
Demographics + + + | Address | [address] | | | [place] [address] | + + + | Home Phone | | + + + | Preferred Language | Unknown | + + + | Marital Status | | + + + | Episcopalian Affiliation | Unknown | + + + | Race | Unknown | + + + | Ethnic Group | Unknown | + + + Author + + + | Author | [facility] | | | and [place] | + + + | Organization | [facility] | | | and [place] | + + + | Address | Unknown | + + + | Phone | Unavailable | + + + Support + + + + + | Name | Relationship | Address | Phone | + + + + + | Zoran Whitley | ECON | [address] | | | | | [id number], [place] | | | | | [address] | | + + + + + | Roseann Walker | ECON | [place] | | | | | [address] | | + + + + + Care Team Providers + +------+ + | Care Horse Riding Coach Or Instructor Name | Role | Phone | + +------+ + PCP | Unavailable | + +------+ + Reason for Visit Diagnostic/Screening (Routine) +--------+--------+ + + + + | Status | Reason | Specialty | Diagnoses / | Referred By | Referred To | | | | | Procedures | Contact | Contact | +--------+--------+ + + + + | Closed | | Radiology | Procedures | Provider, | | | | | | MRI Lumbar | Historical, | | | | | | Spine wo | MD Zepeda | | | | | | Contrast | [address] | | | | | | | [place] | | | | | | | [address] | | +--------+--------+ + + + + Encounter Details +--------+ + + + + | Date | Type | Department | Care Team | Description | +--------+ + + + + | 01/26/ | Imaging | [facility] | Provider, | | | 2016 | Exam | [facility] | MD Jesus Swan | | | | | IMAGING [address] | [place] | | | | | [address] [place] | [place] [address] | | | | | [place] [address] | | | | | | [phone] | | | +--------+ + + + + Social History + +-------+ +--------+------+ | Tobacco Use | Types | Packs/Day | Years | Date | | | | | Used | | + +-------+ +--------+------+ | Never Assessed | | | | | + +-------+ +--------+------+ + + + | Sex Assigned at [...] | + +--------+ + + + | MRI LUMBAR SPINE WO | Routin | 12/26/2011 | | Results for this | | CONTRAST | e | 2:30 PM | | procedure are in the | | | | PDT | | results section. | + +--------+ + + + documented in this encounter Results MRI Lumbar Spine wo Contrast (12/26/2011 2:30 PM PDT) + + | Specimen | + + | | + + + + + | Narrative | Performed At | + + + | External films | [facility] | | for comparison only - no result from [facility]. | | + + + + +---------+ + + | Performing | Address | City/State/Zipcode | Phone Number | | Organization | | | | + +---------+ + + | [facility] | | | | + +---------+ + + documented in this encounter Visit Diagnoses Not on filedocumented in this encounter"
--- OUTSIDE RECORDS SUMMARY | ~2019-09-02 | XMS | Encounter Summary ---
Demographics + + + | Address | [address] | | | [place] [address] | + + + | Home Phone | | + + + | Preferred Language | Unknown | + + + | Marital Status | | + + + | Nondenominational Affiliation | Unknown | + + + | Race | Unknown | + + + | Ethnic Group | Unknown | + + + Author + + + | Author | [facility] | | | and [place] | + + + | Organization | [facility] | | | and [place] | + + + | Address | Unknown | + + + | Phone | Unavailable | + + + Support + + + + + | Name | Relationship | Address | Phone | + + + + + | Zoran Whitley | ECON | [address] | | | | | [id number], [place] | | | | | [address] | | + + + + + | Roseann Walker | ECON | [place] | | | | | [address] | | + + + + + Care Team Providers + +------+ + | Care Trade Marker Name | Role | Phone | + +------+ + PCP | Unavailable | + +------+ + Reason for Visit + + + | Reason | Comments | + + + | Appointment | | + + + Encounter Details +--------+--------+ + + + | Date | Type | Department | Care Team | Description | +--------+--------+ + + + | 07/19/ | Refill | [facility] | Ramon Stokes | Appointment | | 2015 | | ORTHOPEDIC SURGERY | MD Mehul [address] [facility] | | | | | [address] [facility] | [place], [place] | | | | | [place], [place] | [address] | | | | | [address] | | | | | | [phone] | | | +--------+--------+ + + + Social History + +-------+ [...] filedocumented as of this encounter Visit Diagnoses Not on filedocumented in this encounter"
--- OUTSIDE RECORDS SUMMARY | ~2019-09-02 | XMS | Encounter Summary ---
Demographics + + + | Address | [address] | | | [place] [address] | + + + | Home Phone | | + + + | Preferred Language | Unknown | + + + | Marital Status | | + + + | Advent Affiliation | Unknown | + + + | Race | Unknown | + + + | Ethnic Group | Unknown | + + + Author + + + | Author | [facility] | | | and [place] | + + + | Organization | [facility] | | | and [place] | + + + | Address | Unknown | + + + | Phone | Unavailable | + + + Support + + + + + | Name | Relationship | Address | Phone | + + + + + | Zoran Whitley | ECON | [address] | | | | | [id number], [place] | | | | | [address] | | + + + + + | Roseann Walker | ECON | [place] | | | | | [address] | | + + + + + Care Team Providers + +------+ + | Care Brass Buffer Name | Role | Phone | + +------+ + PCP | Unavailable | + +------+ + Encounter Details +--------+ + + + + | Date | Type | Department | Care Team | Description | +--------+ + + + + | 01/17/ | Orders Only | [facility] [place] | Quirino Olson | Right knee pain, | | 2017 | | ORTHOPEDIC SURGERY | [address] | unspecified | | | | [address] [facility] | [place] | chronicity (Primary | | | | [place], [place] | [place] [address] | Dx) | | | | [address] | [phone] | | | | | [phone] | | | +--------+ + + + [...] of this encounter Plan of Treatment + +---------+--------+ + + | Name | Type | Priori | Associated Diagnoses | Order Schedule | | | | ty | | | + +---------+--------+ + + | XR Knee Right 1 - 2 | Imaging | Routin | Right knee pain, | Expected: | | Vw | | e | unspecified | 01/17/2018, Expires: | | | | | chronicity | 01/17/2019 | + +---------+--------+ + + documented as of this encounter Visit Diagnoses + + | Diagnosis | + + | Right knee pain, unspecified chronicity - Primary | + + documented in this encounter"
--- OUTSIDE RECORDS SUMMARY | ~2019-09-02 | XMS | Encounter Summary ---
Demographics + + + | Address | [address] | | | [place] [address] | + + + | Home Phone | | + + + | Preferred Language | Unknown | + + + | Marital Status | | + + + | Congregation Affiliation | Unknown | + + + | Race | Unknown | + + + | Ethnic Group | Unknown | + + + Author + + + | Author | [facility] | | | and [place] | + + + | Organization | [facility] | | | and [place] | + + + | Address | Unknown | + + + | Phone | Unavailable | + + + Support + + + + + | Name | Relationship | Address | Phone | + + + + + | Zoran Whitley | ECON | [address] | | | | | [id number], [place] | | | | | [address] | | + + + + + | Roseann Walker | ECON | [place] | | | | | [address] | | + + + + + Care Team Providers + +------+ + | Care Machine Programmer Name | Role | Phone | + +------+ + PCP | Unavailable | + +------+ + Reason for Visit + + + | Reason | Comments | + + + | Follow-up | painful tongue | + + + Evaluate & Treat (Routine) +--------+--------+ + + + + | Status | Reason | Specialty | Diagnoses / | Referred By | Referred To | | | | | Procedures | Contact | Contact | +--------+--------+ + + + + | Closed | | Otolaryngolog | Diagnoses | [place], | Morgan Waters | | | | y | painful | Morgan M, DO | E, MD [address] | | | | | lucille/david | [address] | | | | | [address] | [address] | [place] [address] | | | | | [place] | [place], | [place], | | | | | s/ | [place] [address] | [place] [address] | | | | | alexk | Phone: | Phone: | | | | | faxing auth | [phone] | [phone] | | | | | Procedures | Fax: | Fax: | | | | | OFFICE | [phone] | [phone] | | | | | VISIT | | | | | | | REGULAR | | | +--------+--------+ + + + + Encounter Details +--------+---------+ + + + | Date | Type | Department | Care Team | Description | +--------+---------+ + + + | 03/09/ | Office | [facility] | Morgan Waters MD | Glossitis (Primary | | 2015 | Visit | OTOLARYNGOLOGY [address] | [address] [place] | Dx); Benign neoplasm | | | | [address] [place] [address] | [address] [place], | of tongue | | | | [place] | [place] [address] | | | | | [address] | [phone] | | | | | [phone] | | | +--------+---------+ + + + [...] + + | Pulse | 96 | 03/09/2015 11:02 AM | | | | | PST | | + + + + + | Temperature | - | - | | + + + + + | Respiratory Rate | 16 | 03/09/2015 11:02 AM | | | | | PST | | + + + + + | Oxygen Saturation | 97% | 03/09/2015 11:02 AM | | | | | PST | | + + + + + | Inhaled Oxygen | - | - | | | Concentration | | | | + + + + + | Weight | 108.9 kg (240 lb) | 03/09/2015 11:02 AM | | | | | PST | | + + + + + | Height | 165.1 cm (5' 5") | 03/09/2015 11:02 AM | | | | | PST | | + + + + + | Body Mass Index | 39.94 | 03/09/2015 11:02 AM | | | | | PST | | + + + + + documented in this encounter Progress Notes Morgan Waters MD - 03/09/2015 11:32 AM PST [facility] OTOLARYNGOLOGY [address] [place] [id number] OFFICE NOTE MORGAN WATERS MD Patient: LESLYE WHITLEY Admitting: MR #: [id number] LOC: PT TYPE: Adm Date: 03/09/2015 : 1955 OFFICE VISIT DATE OF VISIT: 03/09/2015 The patient has developed a lot of pain in the tongue area. This has been going on for ab out 2 months. She was treated with 2 different prescriptions of medicine to help with oral thrush. She felt it improved but it still chowdary a lot whenever she has anything that is spicy or salty. She has had chronic liver cirrhosis. Her medication is reviewed. She has been on Imuran for years. She also has other medications, but unlikely to cause a stomati tis. The patient otherwise is not having any other complaints. EXAMINATION: GENERAL: Shows an alert 60-year-old female patient. She is communicating well. Her voic e quality is good. HEENT: Skin of the face, nose, and ears all appear to be healthy. Parotid, submandibular glands were smooth. Facial movement is symmetrical, without any weakness noted. Ear canal s are open, they are clean. The drums were clear. There is no middle ear effusion or abn ormality noted. She has hearing aids in both ears. Nasal passages: No obstruction, no mas s or lesion. No mucopurulent drainage. Floor of the mouth, buccal mucosa, hard palate, te eth, lips, gums all appear to be very smooth and healthy. No mass seen in the oropharynx. Posterior pharyngeal wall is smooth. The tongue itself currently is smooth. There is no evidence of any obvious thrush. There is no inflammation. She complains that the burning i s mainly in the top of her tongue out to the tip, but it is not inflamed or red at the curr ent time. There is no ulceration. NECK: There are no masses or lymphadenopathy. Thyroid gland is smooth. Trachea is midlin e. Good range of motion of the neck without any pain or discomfort noted. IMPRESSION: Glossitis with a history of probable thrush. 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 An iron level will be obtained to see if she may have an iron deficiency anemia. Further decisions will be made once the blood coun t has been obtained. MORGAN WATERS MD Dictated by MORGAN WATERS MD 03/09/2015 11:32:30 Transcribed on 03/10/2015 06:05:27 by [facility] job# [id number] Confirmation #: [id number] cc: MORGAN MELCHOR MD ar , Morgan Florez MD - 03/09/2015 11:28 AM PSTSee dictation # [id number] signed by Morgan Waters MD at 03/09/2015 11:34 AM PSTdocumented in th is encounter Plan of Treatment Not on filedocumented as of this encounter Results Basic Metabolic Panel (03/09/2015 11:45 AM PST) + + + + + + | Component | Value | Ref Range | Performed | Pathologist | | | | | At | Signature | + + + + + + | Na | 142 | 136 - 149 | [facility] | | | | | mmol/L | [facility] | | | | | | [facility]ICAL | | | | | | C[facility] - | | | | | | LABORATORY | | + + + + + + | K | 3.9 | 3.5 - 5.1 | [facility] | | | | | mmol/L | [facility] | | | | | | MEDICAL | | | | | | CENTER - | | | | | | LABORATORY | | + + + + + + | Cl | 107 | 98 - 109 mmol/L | [facility] | | | | | | [facility] | | | | | | MEDICAL | | | | | | CENTER - | | | | | | LABORATORY | | + + + + + + | CO2 | 27 | 24 - 31 mmol/L | [facility] | | | | | | [facility] | | | | | | [facility]ICAL | | | | | | CENTER - | | | | | | LABORATORY | | + + + + + + | Anion Gap | 8 | 3 - 16 mmol/L | [facility] | | | | | | [facility] | | | | | | [facility] | | | | | | CENTER - | | | | | | LABORATORY | | + + + + + + | Glucose | 101 | 70 - 109 mg/dL | [facility] | | | | | | [facility] | | | | | | MEDICAL | | | | | | CENTER - | | | | | | LABORATORY | | + + + + + + | BUN | 11 | 7 - 18 mg/dL | [facility] | | | | | | [facility] | | | [facility] | | MEDICAL | | | | | | CENTER - | | | | | | LABORATORY | | + + + + + + | Creatinine | 0.95 | 0.60 - 1.30 | [facility] | | | | | mg/dL | [facility] | | | | | | MEDICAL | | | | | | CENTER - | | | | | | LABORATORY | | + + + + + + | eGFR if not | 60Comment: GLOMERULAR | >=60 | [facility] | | | | FILTRATION | mL/min/1.73m2 | [facility] | | | MALIAN | RATE,ESTIMATED | | MEDICAL | | | | mL/min/1.00u1Umic than | | CENTER - | | [...] + + + + | Calcium | 9.4 | 8.3 - 10.5 | [facility] | | | | | mg/dL | [facility] | | | | | | MEDICAL | | | | | | CENTER - | | | | | | LABORATORY | | + + + + + + | BUN/Creatin | 11.6 | | [facility] | | | ine [...] | + + + + + | [facility] | [address] | [place] | [phone] | | [facility] | | [address] | | | - LABORATORY | | | | + + + + + Ferritin (03/09/2015 11:45 AM PST) + +-------+ + + + | Component | Value | Ref Range | Performed | Pathologist | | | | | At | Signature | + +-------+ + + + | FERRITIN | 27 | 11-<307 ng/mL | [facility] | | | | | [...] + | [facility] | [address] | [place] | [phone] | | [facility] | | [address] | | | - LABORATORY | | | | + + + + + Vitamin B-12 (03/09/2015 11:45 AM PST) + + + + + + | Component | Value | Ref Range | Performed | Pathologist | | | | | At | Signature | + + + + + + | VITAMIN | 406Comment: DEFICIENT: | 180 - 914 pg/mL | [facility] | | | B-12 | <145 | | [facility] | | | | pg/mLINDETERMINATE: | | MEDICAL | | | | 145-180 pg/mL | | CENTER - | | | [...] [address] | [place] | [phone] | | [facility] | | [address] | | | - LABORATORY | | | | + + + + + documented in this encounter Visit Diagnoses + + | Diagnosis | + + | Glossitis - Primary | + + | Benign neoplasm of tongue | + + documented in this encounter
--- OUTSIDE RECORDS SUMMARY | ~2019-09-02 | XMS | Encounter Summary ---
Demographics + + + | Address | [address] | | | [place] [address] | + + + | Home Phone | | + + + | Preferred Language | Unknown | + + + | Marital Status | | + + + | Jehovah'S Witness Affiliation | Unknown | + + + | Race | Unknown | + + + | Ethnic Group | Unknown | + + + Author + + + | Author | [facility] | | | and [place] | + + + | Organization | [facility] | | | and [place] | + + + | Address | Unknown | + + + | Phone | Unavailable | + + + Support + + + + + | Name | Relationship | Address | Phone | + + + + + | Zoran Whitley | ECON | [address] | | | | | [id number], [place] | | | | | [address] | | + + + + + | Roseann Walker | ECON | [place] | | | | | [address] | | + + + + + Care Team Providers + +------+ + | Care Marine Radio Installer And Servicer Name | Role | Phone | + [...] + + | 04/29/ | Telephone | [facility] | Ramon Stokes | ED Follow-up | | 2014 | | ORTHOPEDIC SURGERY | MD Mehul [address] [facility] | | | | | [address] [facility] | [address] | | | | | [place] | [address] | | | | | [address] | | | | | | [phone] | | | +--------+ + + + [...]
--- OUTSIDE RECORDS SUMMARY | ~2019-09-02 | XMS | Encounter Summary ---
Demographics + + + | Address | [address] | | | [place] [address] | + + + | Home Phone | | + + + | Preferred Language | Unknown | + + + | Marital Status | | + + + | Methodist Affiliation | Unknown | + + + | Race | Unknown | + + + | Ethnic Group | Unknown | + + + Author + + + | Author | [facility] | | | and Keshawnana | + + + | Organization | [facility] | | | and K[place]hawnana | + + + | Address | Unknown | + + + | Phone | Unavailable | + + + Support + + + + + | Name | Relationship | Address | Phone | + + + + + | Zoran Whitley | ECON | [address] | | | | | [id number] | | | | | [address] | | + + + + + | Roseann Walker | ECON | [place] | | | | | [address] | | + + + + + Care Team Providers + +------+ + | Care Dress Finisher Name | Role | Phone | + +------+ + | Sri Razo | PCP | | + +------+ + Reason for Visit + + + | Reason | Comments | + + + | Weakness | Pt seen at [facility] and was referred here. Sx x2 | | | days. Also reports swelling. | + + + | Dizziness | | + + + Encounter Details +--------+ + + + + | Date | Type | Department | Care Team | Description | +--------+ + + + + | 03/27/ | Emergency | [facility] | Jacob Bhatia | Lower extremity | | 2019 | | MEDICAL CENTER | DO [address] | edema (Primary Dx); | | | | EMERGENCY CENTER | [address] | Chronic liver | | | | [address] | [place], [place] | failure without | | | | [place] | [address] | hepatic coma (HCC); | | | | [address] | [phone] | Pancytopenia (HCC) | | | | [phone] | | | +--------+ + + + [...] + + + | Blood Pressure | 115/58 | 03/27/2019 5:26 PM | | | | | PST | | + + + + + | Pulse | 89 | 03/27/2019 5:26 PM | | | | | PST | | + + + + + | Temperature | 36.7 C (98.1 F) | 03/27/2019 5:26 PM | | | | | PST | | + + + + + | Respiratory Rate | 18 | 03/27/2019 5:26 PM | | | | | PST | | + + + + + | Oxygen Saturation | 100% | 03/27/2019 5:26 PM | | | | | PST | | + + + + + | Inhaled Oxygen | - | - | | | Concentration | | | | + + + + + | Weight | 104.8 kg (230 lb | 03/27/2019 1:42 PM | | | | 14.9 oz) | PST | | + + + + + | Height | 157.5 cm (5' 2") | 03/27/2019 1:42 PM | | | | | PST | | + + + + + | Body Mass Index | 42.24 | 03/27/2019 1:42 PM | | | | | PST | | + + + + + documented in this encounter Discharge Instructions AttachmentsThe following attachments cannot be sent through Care Everywhere.Lymphedema ([facility])Liver Disease, Tests (Kazakh)documented in this encounter Medications at Time of [...] puffs into | 1 | 5 | //20 | | | (QVAR) 80 mcg/puff | the lungs Daily. | Inhaler | | 18 | | | inhalerIndications: | | | | | | | Mild persistent | | | | | | | asthma without | | | | | | | complication | | | | | | + + + +---------+ + + | cephalexin | | | 0 | 03/18/20 | | | (KEFLEX) 500 mg | | | | 19 | | | capsule | | | [...] furosemide (LASIX) | | | 0 | 03/21/20 | | | 40 mg tablet | | | | 19 | | + + + +---------+ + [...] + +---------+ + + | oxyCODONE | | | 0 | 03/21/20 | | | (ROXICODONE) 5 mg | | | | 19 | | [...] INFORMATION | SUNNY | Routin | | 03/27/2019 1:29 PM | | EXCHANGE | | e | | PST | + +------+--------+ + + documented as of this encounter Procedures + +--------+ + + + | Procedure Name | Priori | Date/Time | Associated Diagnosis | Comments | | | ty | | | | + +--------+ + + + | LABS - EXTERNAL SCAN | | 03/29/2019 | | Results for this | | | | 12:00 AM | | procedure are in the | | | | PST | | results section. | + +--------+ + + + | XR CHEST PA AND | TRISHA | 03/27/2019 | | Results for this | | LATERAL | | 4:39 PM | | procedure are in the | | | | PST | | results section. | + +--------+ + + + | TROPONIN I | STAT | 03/27/2019 | | Results for this | | | | 2:44 PM | | procedure are in the | | | | PST | | results section. | + +--------+ + + + | PROTIME INR | STAT | 03/27/2019 | | Results for this | | | | 2:44 PM | | procedure are in the | | | | PST | | results section. | + +--------+ + + + | CBC WITH | STAT | 03/27/2019 | | Results for this | | DIFFERENTIAL | | 2:44 PM | | procedure are in the | | | | PST | | results section. | + +--------+ + + + | LIPASE | STAT | 03/27/2019 | | Results for this | | | | 2:44 PM | | procedure are in the | | | | PST | | results section. | + +--------+ + + + | COMPREHENSIVE | STAT | 03/27/2019 | | Results for this | | METABOLIC PANEL | | 2:44 PM | | procedure are in the | | | | PST | | results section. | + +--------+ + + + | B TYPE NATRIURETIC | STAT | 03/27/2019 | | Results for this | | PEPTIDE | | 2:43 PM | | procedure are in the | | | | PST | | results section. | + +--------+ + + + | ECG 12 LEAD | Routin | 03/27/2019 | | Results for this | | | e | 2:38 PM | | procedure are in the | | | | PST | | results section. | + +--------+ + + + | URINALYSIS WITH | STAT | 03/27/2019 | | Results for this | | MICROSCOPIC | | 2:34 PM | | procedure are in the | | | | PST | | results section. | + +--------+ + + + | ED INFORMATION | Routin | 03/27/2019 | | | | EXCHANGE | e | 1:29 PM | | | | | | PST | | | + +--------+ + + + +---+--------+ | | | | | Proced | | | ure | | | Note - | | | Vitaly, | | | Lab In | | | | | | Hlseve | | | n - | | | 03/27/ | | | 2018 | | | 1:30 | | | PM PST | | [...] | | | FICATI | | | ON?/ | | | / | | | 9 | | | 13:28? | | | HOPTOW | | | IT, | | | YOSELYN? | | | MRN: | | | [id number] | | | [id number] | | | riteri | | | a Met | | | 10 in | | | 12 3 | | | in | | | [...] | | | system | | | .E.D. | | | Visit | | | Count | | | (12 | | | mo.)Fa | | | cility | | | | | | Visits | | | Low | | | Acuity | | | | | | [place] | | | | | | Health [...] | | 2 0 | | | Provid | | | ence | | | St. | | | [facility] | | | Medica | | | l | | | Center | | | 3 0 | | | [facility] [place] | | | y | | | Hospit | | | al 10 | | | 0 | | | Total | | | 16 0 | | | Note: | | [...] | | out | | | of 16 | | | in the | | [...] | | | Nov | | | 27, | | | 2019 | | | [facility] | | | | | | Region | | | al | | | [facility] | | | [place] | | | [place] | | | Emerge | | | ncy | | | Nov | | | 21, | | | 2019 | | | [facility] | [place] | | | y H. | | | [place] | | | [place] | | | Emerge | | | ncy | | | Chief | | | Compla | | | int: | | | ANASAR | | | [place] | | | Nov | | | 15, | | | 2019 | | | Provid | | | ence | | | St. | | | [facility] | [facility] | [facility] | | | [place] | | | [place] | | | Emerge | | | ncy | | | Right | | | Leg | | | Pain | | | Leg | | | Swelli | | | ng | | | Leg | | | Pain | | | | | | Lymphe | | | meredith, | | | not | | | elsewh | | | ere | | | classi | | | fied | | | Oct 3, | | [...] | | | 2019 | | | [place] | | | | | | Health [...] | | | St. | | | [place] | | | y H. | | | [place] | | | [place] | | | Emerge | | | ncy | | | Chief | | | Compla | | | int: | | | SHAKY | | | Sep | | | 1, | | | 2019 | | | [facility] | [facility] | [place] | | | y H. | | [...] | | | St. | | | [place] | | | y H. | | [...] | | | s | | | Recent | | | [...] | | | Nov | | | 21, | | | 2019 | | | [facility] | [facility] | [place] | | | y [facility] | | | [place] | | | [place] | | | Medica | | | l | | | Surgic | | | al | | | Genera | | | lized | | | edema | | | | | | Gastro | | | -esoph | | | ageal | | | reflux | | | | | | diseas | | | e | | | withou | | | t | | | esopha | | | gitis | | | | | | Cellul | | | itis | | | of | | | right | | | lower | | | limb | | | | | | Autoim | | | mune | | | hepati | | | tis | | | Other | | | long | | | term | | | (curre | | | nt) | | | drug | | | therap | | | y | | | Hepati | | | c | | | failur | | | e, | | | unspec | | | ified | | | withou | | | t coma | | | | | | Long | | | term | | | (curre | | | nt) | | | use of | | | | | | antibi | | | otics | | | | | | Fluid | | | overlo | | | ad, | | | unspec | | | ified | | | | | | Other | | | pancyt | | | openia | | | | | | Hypoth | | | yroidi | | | sm, | | | unspec | | | ified | | | Oct | | | 16, | | | 2019 | | | [place] | | | | | | Health [...] | | | St. | | | [place] | | | y H. | | [...] | | | St. | | | [place] | | | y H. | | [...] MD | | | | | | Pie Dough Roller | | | al | | | [...] | | | N, | | | GUITAR TECHNICIAN-C | | | Nurse | | | Practi | | | tioner | | | ([phone]) | | | | | | [phone] | | | 66 | | | Stephan 9, | | | 2019 | | | - | | | Curren | | | t | | | Unknow | | | n | | | Clinic | | | /Cente | | | r | | | [phone]) | | | [phone] | | | 30 | | | Nov | | | 22, | | | 2019 - | | | | | | [...] | | | /notif | | | [id number] | | | [id number] | | | [id number] | | | [id number] | | | [id number] | | | [id number] | | | 0f | | | PLEASE | | | [...] | +---+--------+ documented in this encounter Results LABS - EXTERNAL SCAN (03/29/2019 12:00 AM PST) + + + | Narrative | Performed At | + + + | Ordered by an | | | unspecified provider. | | + + + XR Chest PA and Lateral (03/27/2019 4:39 PM PST) + + | Specimen | + + | | + + + + + | Impressions | Performed At | + + + | Pulmonary vascular congestion with small bilateral pleural | [facility] | | effusions. Signed by: Sha Griggs Chet Sign Date/Time: | | | 03/27/2019 4:53 PM | | + + + + + + | Narrative | Performed At | + + + | CHEST PA AND LATERAL CLINICAL INFORMATION: Shortness of | [facility] | | breath COMPARISON: XR CHEST AP PORTABLE (08/13/2017); CT CHEST WO | | | CONTRAST (08/13/2017); ECHO OUTSIDE INTERPRETATION (11/10/2016); | | | FINDINGS: The heart is mildly enlarged. Pulmonary vascular | | | congestion with small bilateral pleural effusions. Low lung | | | volumes. No pneumothorax. | | + + + + + | Procedure Note | + + | Vitaly, Jacobo Results In - 03/27/2019 4:57 PM PST | | CHEST PA AND LATERAL | | | | CLINICAL INFORMATION: | | Shortness of breath | | | | COMPARISON: | | XR CHEST AP PORTABLE (08/13/2017); CT CHEST WO CONTRAST (08/13/2017); | | ECHO OUTSIDE INTERPRETATION (11/10/2016); | | | | FINDINGS: | | The heart is mildly enlarged. Pulmonary vascular congestion with small | | bilateral pleural effusions. Low lung volumes. No pneumothorax. | | | | IMPRESSION: | | Pulmonary vascular congestion with small bilateral pleural effusions. | | | | | | | | Signed by: Sha Griggs Chet | | Sign Date/Time: 03/27/2019 4:53 PM | + + + +---------+ + + | Performing | Address | City/State/Zipcode | Phone Number | | Organization | | | | + +---------+ + + | [facility] | | | | + +---------+ + + Troponin I (03/27/2019 2:44 PM PST) + + + + + + | Component | Value | Ref Range | Performed | Pathologist | | | | | At | Signature | + + + + + + | Troponin I | 0.015Comment: 0.04 | 0.00 - 0.04 | [facility] | | | | ng/mL or less | ng/mL | LABORATORY | | | | Negative, repeat | | | | | | testing in four to six | | | | | | hour ifclinically | | | | | | indicted0.05 to 0.77 | | | | | | ng/mL | | | | | | Suspicious for | | | | | | myocardial injury. | | | | | | Serial measurementsmay | | | | | | be necessary to confirm | | | | | | or exclude the diagnosis | | | | | | of acute | | | | | | coronarysyndrome. Repeat | | | | | | testing in four to six | | | | | | hours if indicated.0.78 | | | | | | or greater ng/mL | | | | | | Consistent with | | | | | | myocardial injury. | | | | | | Clinical andlaboratory | | | | | | correlation recommended. | | | | | | Testing performed at | | | | | | [facility];[address] | | [address];[place] [address] | | | | + + + + + + + + | Specimen | + + | Blood | + + + + + + + | Performing | Address | City/State/Zipcode | Phone Number | | Organization | | | | + + + + + | [facility] | [address] | [place] [address] | [phone] | + + + + + Protime INR (03/27/2019 2:44 PM PST) + + + + + + | Component | Value | Ref Range | Performed | Pathologist | | | | | At | Signature | + + + + + + | INR | 1.6Comment: REFERENCE | | [facility] | | | | RANGE:0.9 - 1.2 | | LABORATORY | | | | NON-ANTICOAGULATED2.0 | | | | | | - 3.0 ALL OTHER | | | | | | THERAPEUTIC | | | | | | INDICATIONS2.5 - 3.5 | | | | | | MECHANICAL HEART VALVES, | | | | | | RECURRENT OR SYSTEMIC | | | | | | EMBOLISMTesting | | | | | | performed at [facility] | | | | | | [facility];[place], [place] | | | | | | [address] | | | | + + + + + + + + | Specimen | + + | Blood | + + + + + + + | Performing | Address | City/State/Zipcode | Phone Number | | Organization | | | | + + + + + | [facility] | [address] | [place] [address] | [phone] | + + + + + Lipase (03/27/2019 2:44 PM PST) + + + + + + | Component | Value | Ref Range | Performed | Pathologist | | | | | At | Signature | + + + + + + | Lipase | 43Comment: Testing | 12 - 53 U/L | [facility] | | | | performed at [facility];[address] | | LABORATORY | | | | [address];[place] | | | | | | [address] | | | | + + + + + + + + | Specimen | + + | Blood | + + + + + + + | Performing | Address | City/State/Zipcode | Phone Number | | Organization | | | | + + + + + | [facility] | [address] | [place] [address] | [phone] | + + + + + Comprehensive Metabolic Panel (03/27/2019 2:44 PM PST) + + + + + + | Component | Value | Ref Range | Performed | Pathologist | | | | | At | Signature | + + + + + + | Na | 140 | 135 - 145 | [facility] | | | | | mmol/L | LABORATORY | | + + + + + + | K | 3.7 | 3.5 - 4.9 | [facility] | | | | | mmol/L | LABORATORY | | + + + + + + | Cl | 110 (H) | 99 - 109 mmol/L | [facility] | | | | | | LABORATORY | | + + + + + + | CO2 | 25 | 23 - 32 mmol/L | [facility] | | | | | | LABORATORY | | + + + + + + | Anion Gap | 9 | 5 - 20 mmol/L | [facility] | | | | | | LABORATORY | | + + + + + + | Glucose | 104 (H) | 65 - 99 mg/dL | [facility] | | | | | | LABORATORY | | + + + + + + | BUN | 15 | 8 - 25 mg/dL | [facility] | | | | | | LABORATORY | | + + + + + + | Creatinine | 0.83 | 0.50 - 1.00 | [facility] | | | | | mg/dL | LABORATORY | | + + + + + + | BUN/Creatin | 18 | | [facility] | | | ine Ratio | | | LABORATORY | | + + + + + + | Calcium | 8.1 (L) | 8.5 - 10.5 | [facility] | | | | | mg/dL | LABORATORY | | + + + + + + | Protein, | 6.5 | 6.3 - 8.2 g/dL | [facility] | | | Total | | | LABORATORY | | + + + + + + | Albumin | 2.3 (L) | 3.3 - 4.8 g/dL | [facility] | | | | | | LABORATORY | | + + + + + + | Globulin | 4.2 | 1.3 - 4.9 g/dL | [facility] | | | | | | LABORATORY | | + + + + + + | A/G Ratio | 0.5 (L) | 1.0 - 2.4 | [facility] | | | | | | LABORATORY | | + + + + + + | BILIRUBIN, | 3.9 (H) | 0.1 - 1.5 mg/dL | [facility] | | | TOTAL | | | LABORATORY | | + + + + + + | ALK PHOS | 130 (H) | 35 - 115 U/L | [facility] | | | | | | LABORATORY | | + + + + + + | AST | 48 (H) | 10 - 45 U/L | [facility] | | | | | | LAB[facility]AT[facility] | | + + + + + + | ALT | 21 | 10 - 65 U/L | [facility] | | | | | | LABORATORY | | + + + + + + | Estimated | >60Comment: GFR <60: | >60 | [facility] | | | GFR | CHRONIC KIDNEY [...] | | | | | performed at [facility];[address] | | | | | | [facility];[place], [place] | | | | | | [address] | | | | + + + + + + + + | Specimen | + + | Blood | + + + + + + + | Performing | Address | City/State/Zipcode | Phone Number | | Organization | | | | + + + + + | [facility] | [address] | [place] [address] | [phone] | + + + + + CBC with Differential (03/27/2019 2:44 PM PST) + + + + + + | Component | Value | Ref Range | Performed | Pathologist | | | | | At | Signature | + + + + + + | WBC | 3.49 (L) | 3.80 - 11.00 | [facility] | | | | | K/uL | LABORATORY | | + + + + + + | RBC | 3.43 (L) | 3.70 - 5.10 | [facility] | | | | | M/uL | LABORATORY | | + + + + + + | Hemoglobin | 10.3 (L) | 11.3 - 15.5 | [facility] | | | | | g/dL | LABORATORY | | + + + + + + | Hematocrit | 31.0 (L) | 34.0 - 46.0 % | [facility] | | | | | | LABORATORY | | + + + + + + | MCV | 90.3 | 80.0 - 100.0 fl | [facility] | | | | | | LABORATORY | | + + + + + + | MCH | 30.1 | 27.0 - 34.0 pg | [facility] | | | | | | LABORATORY | | + + + + + + | MCHC | 33.4 | 32.0 - 35.5 | [facility] | | | | | g/dL | LABORATORY | | + + + + + + | RDW-SD | 62.1 (H) | 37 - 53 fl | [facility] | | | | | | LABORATORY | | + + + + + + | Platelet | 69 (L) | 150 - 400 K/uL | [facility] | | | Count | | | LABORATORY | | + + + + + + | MPV | 7.4 | fl | [facility] | | | | | | LABORATORY | | + + + + + + | Diff Type | AUTOMATED | | [facility] | | | | | | LABORATORY | | + + + + + + | % | 72.11 | % | [facility] | | | Neutrophils | | | LABORATORY | | + + + + + + | % | 11.01 | % | [facility] | | | Lymphocytes | | | LABORATORY | | + + + + + + | Monocyte % | 10.42 | % | [facility] | | | | | | LABORATORY | | + + + + + + | Eosinophils | 6.06 | % | [facility] | | | % | | | LABORATORY | | + + + + + + | Basophils % | 0.40 | % | [facility] | | | | | | LABORATORY | | + + + + + + | Neutrophils | 2.52 | 1.90 - 7.40 | [facility] | | | , Absolute | | K/uL | LABORATORY | | + + + + + + | Absolute | 0.39 (L) | 1.00 - 3.90 | [facility] | | | Lymphocytes | | K/uL | LABORATORY | | + + + + + + | Absolute | 0.36 | 0.00 - 0.80 | [facility] | | | Monocytes | | K/uL | LABORATORY | | + + + + + + | Eosinophils | 0.21 | 0.00 - 0.50 | [facility] | | | , Absolute | | K/uL | LABORATORY | | + + + + + + | Basophils, | 0.01 | 0.00 - 0.10 | [facility] | | | Absolute | | K/uL | LABORATORY | | + + + + + + | RBC | 2+ | | [facility] | | | Morphology | Comment: | | LABORATORY | | | | ANISO | | | | | | 1+ | | | | | | HYPO | | | | | | 1+ | | | | | | ACANTHO | | | | | | 1+ | | | | | | TARGET | | | | | | NORMAL PLT MORPH | | | | | | | | | | + + + + + + | Platelet | DECREASEDComment: | | SDY | | | Estimate | Testing performed at | | LABORATORY | | | | [facility];[address];[place] [address] | | | | + + + + + + + + | Specimen | + + | Blood | + + + + + + + | Performing | Address | City/State/Zipcode | Phone Number | | Organization | | | | + + + + + | [facility] | [address] | [place] [address] | [phone] | + + + + + B Type Natriuretic Peptide (03/27/2019 2:43 PM PST) + + + + + + | Component | Value | Ref Range | Performed | Pathologist | | | | | At | Signature | + + + + + + | BNP | 176.00 (H)Comment: | 0 - 100 pg/mL | [facility] | | | | Testing performed at | | LABORATORY | | | | [facility];[address] | | | | | | [address];[place] [address] | | | | + + + + + + + + | Specimen | + + | Blood | + + + + + + + | Performing | Address | City/State/Zipcode | Phone Number | | Organization | | | | + + + + + | [facility] | [address] | [place] [address] | [phone] | + + + + + ECG 12 lead (03/27/2019 2:38 PM PST) + + + + + + | Component | Value | Ref Range | Performed | Pathologist | | | | | At | Signature | + + + + + + | VENTRICULAR | 93 | BPM | [facility] | | | RATE EKG | | | | | + + + + + + | ATRIAL RATE | 93 | BPM | [facility] | | + + + + + + | P-R | 126 | ms | [facility] | | | INTERVAL | | | | | + + + + + + | QRS | 86 | ms | [facility] | | | DURATION | | | | | + + + + + + | Q-T | 416 | ms | [facility] | | | INTERVAL | | | | | + + + + + + | Q-T | 517 | ms | [facility] | | | INTERVAL | | | | | | (CORRECTED) | | | | | + + + + + + | P WAVE AXIS | 37 | degrees | [facility] | | + + + + + + | QRS AXIS | 45 | degrees | [facility] | | + + + + + + | T AXIS | 0 | degrees | [facility] | | + + + + + + | INTERPRETAT | Sinus rhythm with | | [facility] | | | ION TEXT | occasional Premature | | | | | | ventricular | | | | | | complexesProlonged | | | | | | QTAbnormal ECGNo | | | | | | previous ECGs | | | | | | availableThis ECG | | | | | | contains Unconfirmed | | | | | | Interpretation | | | | | | Statements. See ED | | | | | | Record for Physician | | | | | | Interpretation. | | | | | | Confirmed by MUSE READ | | | | | | ONLY, -COMPUTER ([id number]), | | | | | | restaurant expeditor Marco Lowry | | | | | | Zoran ([id number]) on 03/28/2019 | | | | | | 3:43:45 AM | | | | + + + + + + + + | Specimen | + + | | + + + + + | Narrative | Performed At | + + + | | | + + + + +---------+ + + | Performing | Address | City/State/Zipcode | Phone Number | | Organization | | | | + +---------+ + + | [facility] | | | | + +---------+ + + Urinalysis With Microscopic (03/27/2019 2:34 PM PST) + + + + + + | Component | Value | Ref Range | Performed | Pathologist | | | | | At | Signature | + + + + + + | Color, UA | YELLOW | | [facility] | | | | | | LABORATORY | | + + + + + + | Clarity, UA | CLEAR | | [facility] | | | | | | LABORATORY | | + + + + + + | Specific | 1.008 | 1.002 - 1.030 | [facility] | | | [place], | | | LABORATORY | | | Urine | | | | | + + + + + + | Leukocyte | NEGATIVE | NEG | [facility] | | | esterase, | | | LABORATORY | | | UA | | | | | + + + + + + | Nitrite, UA | NEGATIVE | NEG | [facility] | | | | | | LABORATORY | | + + + + + + | Urobilinoge | 2.0 (H) | <1.6 mg/dL | [facility] | | | n, Ur | | | LABORATORY | | + + + + + + | Protein, | NEGATIVE | NEG mg/dL | [facility] | | | Urine | | | LABORATORY | | | (mg/dL) | | | | | + + + + + + | pH, Urine | 7.0 | 5.0 - 8.0 | [facility] | | | | | | LABORATORY | | + + + + + + | Blood, UA | NEGATIVE | NEG | [facility] | | | | | | LABORATORY | | + + + + + + | Ketones, UA | NEGATIVE | NEG mg/dL | [facility] [...] + + + | WBC UA | 0-2 | 0 - 5 /hpf | [facility] | | | | | | LABORATORY | | + + + + + + | Red Blood | NONE SEEN | 0 - 5 /hpf | [facility] | | | Cells, | | | LABORATORY | | | Urine | | | | | + + + + + + | Squamous | 50-100 | /lpf | [facility] | | | Epithelial | | | LABORATORY | | | Cells, | | | | | | Urine | | | | | + + + + + + | Bacteria, | NONE SEEN | NONE | [facility] | | | Urine | | | LABORATORY | | + + + + + + | Mucus, | 1+Comment: Testing | | [facility] | | | Urine | performed at [id number] | LABORATORY | | | | [address];[place], [place] | | | | | | [address] | | | | + + + [...] | + + + + + | [facility] | [address] | [place] [address] | [phone] | + + + + + documented in this encounter Visit Diagnoses + + | Diagnosis | + + | Lower extremity edema - Primary Edema | + + | Chronic liver failure without hepatic coma (HCC) | + + | Pancytopenia (HCC) Other pancytopenia | + + documented in this encounter
--- OUTSIDE RECORDS SUMMARY | ~2019-09-02 | XMS | Encounter Summary ---
Demographics + + + | Address | [address] | | | [place] [address] | + + + | Home Phone | | + + + | Preferred Language | Unknown | + + + | Marital Status | | + + + | Moravian Affiliation | Unknown | + + + | Race | Unknown | + + + | Ethnic Group | Unknown | + + + Author + + + | Author | [facility] | | | and [place] | + + + | Organization | [facility] | | | and [place] | + + + | Address | Unknown | + + + | Phone | Unavailable | + + + Support + + + + + | Name | Relationship | Address | Phone | + + + + + | Zoran Whitley | ECON | [address] | | | | | [id number] | | | | | [address] | | + + + + + | Roseann Walker | ECON | [place] | | | | | [address] | | + + + + + Care Team Providers + +------+ + | Care Engineering Faculty Member Name | Role | Phone | + +------+ + PCP | Unavailable | + +------+ + Encounter Details +--------+ + + + + | Date | Type | Department | Care Team | Description | +--------+ + + + + | 01/26/ | Abstract | [facility] | Duncan Bass, | | | 2016 | | PULMONARY [address] | MD [address] | | | | | [place], | [place], [place] | | | | | [place] [address] | [address] | | | | | [phone] | | | +--------+ + + + [...]
--- OUTSIDE RECORDS SUMMARY | ~2019-09-02 | XMS | Encounter Summary ---
Demographics + + + | Address | [address] | | | [place] [address] | + + + | Home Phone | | + + + | Preferred Language | Unknown | + + + | Marital Status | | + + + | Latter Day Affiliation | Unknown | + + + | Race | Unknown | + + + | Ethnic Group | Unknown | + + + Author + + + | Author | [facility] | | | and Keshawnana | + + + | Organization | [facility] | | | and Keshawnana | + + + | Address | Unknown | + + + | Phone | Unavailable | + + + Support + + + + + | Name | Relationship | Address | Phone | + + + + + | Zoran Whitley | ECON | [address] | | | | | [id number], [place] | | | | | [address] | | + + + + + | Roseann Monolongsahil | ECON | [place] | | | | | [address] | | + + + + + Care Team Providers + +------+ + | Care Vessel Crew Member Name | Role | Phone | [...] | | | | | pain | [address] | [address] | | [address] | [place] | | | | | | [place], | [place] | | | | | | [place] [address] | [address] Phone: | | | | | | Phone: | [phone] | | | | | | [phone] | Fax: | | | | | | Fax: | [phone] | | | | | | [phone] | | +--------+--------+ + + + + Encounter Details +--------+---------+ + + + | Date | Type | Department | Care Team | Description | +--------+---------+ + + + | 01/18/ | Office | [facility] | Quirino Olson | Right knee pain, | | 2017 | Visit | ORTHOPEDIC SURGERY | [address] | unspecified | | | | [address] [facility] | [facility] | chronicity (Primary | | | | [place], [place] | [place] [address] | Dx); Primary | | | | [address] | [phone] | osteoarthritis of | | | | [phone] | | right knee; Acute | | [...]
--- OUTSIDE RECORDS SUMMARY | ~2019-09-02 | XMS | Clinical Summary ---
Demographics + + + | Address | [address] | | | [place] [address] | + + + | Home Phone | | + + + | Preferred Language | Unknown | + + + | Marital Status | | + + + | Church Affiliation | Unknown | + + + | Race | Unknown | + + + | Ethnic Group | Unknown | + + + Author + + + | Author | [facility] | | | and Keshawnana | + + + | Organization | [facility] | | | and Keshawnana | + + + | Address | Unknown | + + + | Phone | Unavailable | + + + Support + + + + + | Name | Relationship | Address | Phone | + + + + + | Zoran Whitley | ECON | [address] | | | | | [id number], [place] | | | | | [address] | | + + + + + | Roseann Walker | ECON | [place] | | | | | [address] | | + + + + + Care Team Providers + +------+ + | Care Food Stylist Name | Role | Phone | + [...] 100 mcg by | | 0 | 06/01 | | Activ | | (SYNTHROID, | mouth every morning | | | 06/20 | | e | | LEVOTHROID) 100 [...] + + + +---------+------+------+-------+ | oxyCODONE | | | 0 | 11/2 | | Activ | | (ROXICODONE) 5 mg | | | | 05/20 | | e | | tablet | | | | 19 | | | + + + +---------+------+------+-------+ | cephalexin | | | 0 | / | | Activ | | (KEFLEX) 500 mg | | | | /20 | | e | | capsule | | | | 19 | | | + + + +---------+------+------+-------+ | furosemide (LASIX) | | | 0 | 11/2 | | Activ | | 40 mg tablet | | | | 05/20 | | e | | | | | | 19 | | [...] filefrom Last 3 Months Insurance + +--------+ +--------+ +---------+--------+ | Payer | Benefi | Subscriber | Effect | Phone | Address | Type | | | t Plan | ID | wes | | | | | | / | | Dates | | | | | | Group | | | | | | + +--------+ +--------+ +---------+--------+ | MEDICARE | MEDICA | [id number] | | [phone] | | Medica | | | RE | | 019-Pr | 5 | | re | | | PART A | | esent | | | | | | AND B | | | | | | + +--------+ +--------+ +---------+--------+ | MEDICARE | MEDICA | [id number] | | [phone] | | Medica | | | RE | | 019-Pr | 5 | | re | | | PART A | | esent | | | | | | AND B | | | | | | + +--------+ +--------+ +---------+--------+ | [employer] | [employer] | [id number] | 12/07/19 | | | Indemn | | SERVICE | YELLOW | | 15-Pre | | | ity | | | HAWK | | sent | | | | + +--------+ +--------+ +---------+--------+ | [employer] | [employer] | [id number] | 05/01/19 | | | Indemn | | SERVICE | YELLOW | | 19-Pre | | | ity | | | HAWK | | sent | | | | + +--------+ +--------+ +---------+--------+ | [place] | MEDICA | [id number] | | [phone] | | Medica | | | ID [...] Person | Self | [birth year] | | [address] | | | al/Fam | | 1954 | | [address] [place] | | | [place] | | | 4 (Home) | [address] | | | | | | [phone] | | | | | | | 3 (Work) | | + +--------+ +--------+ + + | Aline Whitley | Person | Self | [birth year] | | [address] | | | al/Fam | | 1954 | | [address] [place], [place] | | | [place] | | | 4 (Home) | [address] | + +--------+ +--------+ + + Advance Directives + + + + + | Type | Date Recorded | Patient | Explanation | | | | Carpenter Prototype | | + + + + + | Power of | | | | | Life Sciences Director | | | | + + + + + | Advance | 03/27/2019 | | | | Directive | 2:42 PM | | | + + + [...]
--- OUTSIDE RECORDS SUMMARY | ~2019-09-02 | XMS | Encounter Summary ---
Demographics + + + | Address | [address] | | | [place] [address] | + + + | Home Phone | | + + + | Preferred Language | Unknown | + + + | Marital Status | | + + + | Congregation Affiliation | Unknown | + + + | Race | Unknown | + + + | Ethnic Group | Unknown | + + + Author + + + | Author | [facility] | | | and Keshawnana | + + + | Organization | [facility] | | | and [place]hawnana | + + + | Address | Unknown | + + + | Phone | Unavailable | + + + Support + + + + + | Name | Relationship | Address | Phone | + + + + + | Zoran Whitley | ECON | [address] | | | | | [id number], [place] | | | | | [address] | | + + + + + | Roseann Walker | ECON | [place] | | | | | [address] | | + + + + + Care Team Providers + +------+ + | Care Apron Worker Name | Role | Phone | + [...] | | | | | | | [place] [facility] | | | | | | [...] + + | 10/13/ | Anesthesia | [facility] | Asher Bliss MD | | | 2016 | Event | MED [facility]TRA OP | [address] | | | | | [address] | [place] | | | | | [place], [place] | [address] | | | | | [address] | | | | | | [phone] | | | +--------+ + + + + Anesthesia Record + + + + + | Procedure Name | Responsible | Anesthesia Start | Anesthesia Stop Time | | | Anesthesiologist | Time | | + + + + + | Right Carpal Tunnel | Asher Bliss MD | 10/14/1548 | 10/14/15 0829 | | Release (Right [...] | Brace/ | right thumb spica; 10/14/15; 100 | 04/25/152112 by | 10/14/151000 by | | Orthot | | | Sania Monteiro, | | ic/Ort | | | RN | | hosis | | | | +--------+ + + + | Periph | 10/14/15; 657; tczs-nad-fvxofl | 10/14/15657 by | 10/14/15 100 by | | eral | catheter system; 18 gauge, 1 05/04 | Eva Pradhan RN | Sania Monteiro, | | IV | in length; distraction, | | RN | | | intradermal injection, tolerated | | | | | well; no longer indicated, | | | | | removed per policy/procedure; | | | | | 10/14/15; 1001 | | | +--------+ + + + | Airway | Placement Date: 10/14/15; | 10/14/15 075 by | 10/14/15 08 by | | | Placement Time: 752; Airway | Asher Bliss MD | Asher Bliss MD | | | Type: laryngeal mask, oral, | | | | | cuffed; Size: 3; Removal Date: | | | | | 10/14/15; Removal Time: 825 | | | +--------+ + + + | Read | 10/14/15; 0815; Right; wrist; | 10/14/15 0815 by | 10/14/15 1001 by | | only - | healing [...] | | | | | Anxiety, Starting 10/14/15 at | | AM PDT | | [...]
--- OUTSIDE RECORDS SUMMARY | ~2019-09-02 | XMS | Encounter Summary ---
Demographics + + + | Address | [address] | | | [place] [address] | + + + | Home Phone | | + + + | Preferred Language | Unknown | + + + | Marital Status | | + + + | Caodaism Affiliation | Unknown | + + + | Race | Unknown | + + + | Ethnic Group | Unknown | + + + Author + + + | Author | [facility] | | | and Keshawnana | + + + | Organization | [facility] | | | and Keshawnana | + + + | Address | Unknown | + + + | Phone | Unavailable | + + + Support + + + + + | Name | Relationship | Address | Phone | + + + + + | Zoran Whitley | ECON | [address] | | | | | [id number], [place] | | | | | [address] | | + + + + + | Roseann Walker | ECON | [place] | | | | | [address] | | + + + + + Care Team Providers + +------+ + | Care Body Painter Name | Role | Phone | + +------+ + PCP | Unavailable | + +------+ + Encounter Details +--------+ + + + + | Date | Type | Department | Care Team | Description | +--------+ + + + + | 01/17/ | Imaging | [facility] | Provider, | | | 2018 | Exam | MED [facility] EXTERNAL | MD [address] | | | | | IMAGING [address] | [address] [place] | | | | | [address] [place] | [place] [address] | | | | | [place] [address] | | | | | | [phone] | | | +--------+ + + + [...] + +--------+ + + + | CT ABDOMEN PELVIS W | Routin | 06/12/2014 | | Results for this | | CONTRAST | e | 11:55 AM | | procedure are in the | | | | PST | | results section. | + +--------+ + + + documented in this encounter Results CT Abdomen Pelvis w Contrast (06/12/2014 11:55 AM PST) + + | Specimen | [...]
--- OUTSIDE RECORDS SUMMARY | ~2019-09-02 | XMS | Encounter Summary ---
Demographics + + + | Address | [address] | | | [place] [address] | + + + | Home Phone | | + + + | Preferred Language | Unknown | + + + | Marital Status | | + + + | Zoroastrian Affiliation | Unknown | + + + | Race | Unknown | + + + | Ethnic Group | Unknown | + + + Author + + + | Author | [facility] | | | and Keshawnana | + + + | Organization | [facility] | | | and Keshawnana | + + + | Address | Unknown | + + + | Phone | Unavailable | + + + Support + + + + + | Name | Relationship | Address | Phone | + + + + + | Zoran Whitley | ECON | [address] | | | | | [id number], [place] | | | | | [address] | | + + + + + | Roseann Walker | ECON | [place] | | | | | [address] | | + + + + + Care Team Providers + +------+ + | Care Electrical Engineer Name | Role | Phone | + +------+ + PCP | Unavailable | + +------+ + Encounter Details +--------+ + + + + | Date | Type | Department | Care Team | Description | +--------+ + + + + | 06/08/ | Hospital | [facility] | Morgan Woo MD | | | 2011 | Encounter | MED CTR XRAY [address] | [address] [place] | | | | | [place] | [address] [place], | | | | | [place] [address] | [place] [address] | | | | | [phone] | [phone] | | | | | | | [...] Performed At | + + + | [facility] | [facility] | | [address] [facility] | [facility] | | UNENHANCED CT PARANASAL [...] Transcribed | | | Date/Time: 06/08/2011 14:15 Leasing Agent: | | | <Electronically Signed by Neftaly Samuel MD> 06/08/11 213 | | + + + + + | Procedure Note | + + | Vitaly, Rad Conversion - 06/07/2013 4:42 PM [facility] | | Diagnostic Imaging Department | | [address] [facility] | | | | | | [...] | Transcribed Date/Time: 06/08/2011 14:15 | | Leasing Agent: | | <Electronically Signed by Neftaly Samuel MD> 06/08/111 | + + + +---------+ + + [...]
--- OUTSIDE RECORDS SUMMARY | ~2019-09-02 | XMS | Encounter Summary ---
Demographics + + + | Address | [address] | | | [place] [address] | + + + | Home Phone | | + + + | Preferred Language | Unknown | + + + | Marital Status | | + + + | Uatsdin Affiliation | Unknown | + + + | Race | Unknown | + + + | Ethnic Group | Unknown | + + + Author + + + | Author | [facility] | | | and Keshawnana | + + + | Organization | [facility] | | | and [place]hawnana | + + + | Address | Unknown | + + + | Phone | Unavailable | + + + Support + + + + + | Name | Relationship | Address | Phone | + + + + + | Zoran Whitely | ECON | [address] | | | | | [id number], [place] | | | | | [address] | | + + + + + | Roseann Walker | ECON | [place] | | | | | [address] | | + + + + + Care Team Providers + +------+ + | Care Outsole Handler Name | Role | Phone | + +------+ + PCP | Unavailable | + +------+ + Encounter Details +--------+ + + + + | Date | Type | Department | Care Team | Description | +--------+ + + + + | 02/14/ | Imaging | [facility] | Provider, | | | 2018 | Exam | MED CTR EXTERNAL | [address] | | | | | IMAGING [address] | [address] | | | | | [address] [place] | [place] [address] | | | | | [place] [address] | | | | | | [phone] | | | +--------+ + + + [...] + +--------+ + + + | CT LUMBAR SPINE WO | Routin | 02/13/2018 | | Results for this | | CONTRAST | e | 2:40 PM | | procedure are in the | | | | PDT | | results section. | + +--------+ + + + documented in this encounter Results CT Lumbar Spine wo Contrast (02/13/2018 2:40 PM PDT) + + | Specimen | [...]
--- OUTSIDE RECORDS SUMMARY | ~2019-09-02 | XMS | Encounter Summary ---
Demographics + + + | Address | [address] | | | [place] [address] | + + + | Home Phone | | + + + | Preferred Language | Unknown | + + + | Marital Status | | + + + | Oriental Orthodox Affiliation | Unknown | + + + | Race | Unknown | + + + | Ethnic Group | Unknown | + + + Author + + + | Author | [facility] | | | and Keshawnana | + + + | Organization | [facility] | | | and [place]ana | + + + | Address | Unknown | + + + | Phone | Unavailable | + + + Support + + + + + | Name | Relationship | Address | Phone | + + + + + | Zoran Whitley | ECON | [address] | | | | | [id number], [place] | | | | | [address] | | + + + + + | Roseann Walker | ECON | [place] | | | | | [address] | | + + + + + Care Team Providers + +------+ + | Care Motor Vehicle Parts Interpreter Name | Role | Phone | + [...] + + | 12/07/ | Emergency | [facility] | Milagro | Fecal impaction in | | 2014 | | MED CTR EMERGENCY | Anjum Martinez MD [address] | rectum (HCC) | | | | CENTER [address] | [address] [facility] | (Primary Dx) | | | | [place] | [place] [address] | | | | | [address] | [phone] | | | | | [phone] | | | +--------+ + + + [...] primary provider, below is a list of [facility] al group providers currently accepting new patients Primary Care Accepting New Patients 12/07/2014 Dr. Anjum Abraham Family Medicine Scheduling Special interest in geriatrics. Dr. Luigi Tena Family Medicine Scheduling Dr. Dusty Snider Family Medicine Obstetrics Scheduling Full scope family medicine- including obstetrics, pediatrics and adult medicine. PRUDENCE Martinez Family Medicine Scheduling Special interest in OB Care, Pediatrics [address] [place] [phone] AttachmentsThe following attachments cannot be sent through Care Everywhere.FECAL IMPACTION , TREATED ([place])CONSTIPATION (ADULT) ([place])documented in this encounter Medications at Time of [...] + + | Performing | Address | City/State[facility] | Phone Number | | Organization | [...] | | | 50 mg, Oral, ONCE, 12/07/14 at | | 15 11:05 | | | | | 1130, For 1 dose | | AM PDT | | | | + +-------+ +-------+---+---+ +---+---+ | | | +---+---+ documented in this encounter
--- OUTSIDE RECORDS SUMMARY | ~2019-09-02 | XMS | Encounter Summary ---
Demographics + + + | Address | [address] | | | [place] [address] | + + + | Home Phone | | + + + | Preferred Language | Unknown | + + + | Marital Status | | + + + | Islam Affiliation | Unknown | + + + | Race | Unknown | + + + | Ethnic Group | Unknown | + + + Author + + + | Author | [facility] | | | and Keshawnana | + + + | Organization | [facility] | | | and [place] | + + + | Address | Unknown | + + + | Phone | Unavailable | + + + Support + + + + + | Name | Relationship | Address | Phone | + + + + + | Zoran Whitley | ECON | [address] | | | | | [id number], [place] | | | | | [address] | | + + + + + | Roseann Walker | ECON | [place] | | | | | [address] | | + + + + + Care Team Providers + +------+ + | Care Machining Engineer Name | Role | Phone | [...] | | [address] | [place] [address] | | | | | [place] [address] | | | | | | [phone] | | | +--------+ + + + [...] + +--------+ + + + | MRI KNEE RIGHT WO | Routin | 11/30/2017 | | Results for this | | CONTRAST | e | 10:15 AM | | procedure are in the | | | | PDT | | results section. | + +--------+ + + + documented in this encounter Results MRI Knee Right wo Contrast (11/30/2017 10:15 AM PDT) + + | Specimen | [...]
--- OUTSIDE RECORDS SUMMARY | ~2019-09-02 | XMS | Encounter Summary ---
Demographics + + + | Address | [address] | | | [place] [address] | + + + | Home Phone [...] Author | [facility] | | | and Keshawnana | + + + | Organization | [facility] | | | and Keshawnana | + + + | Address | Unknown | + + + | Phone | Unavailable | + + + Support + + + + + | Name | Relationship | Address | Phone | + + + + + | Zoran Whitley | ECON | [address] | | | | | [id number], [place] | | | | | [address] | | + + + + + | Roseann Monolongsahil | ECON | [place] | | | | | [address] | | + + + + + Care Team Providers + +------+ + | Care Mix House Tender Name | Role | Phone | + +------+ + PCP | Unavailable | + +------+ + Reason for Visit + + + | Reason | Comments | + + + | Shortness of Breath | Consult | + + + Evaluate & Treat (Routine) +--------+--------+ + + + + | Status | Reason | Specialty | Diagnoses / | Referred By | Referred To | | | | | Procedures | Contact | Contact | +--------+--------+ + + + + | Closed | | Pulmonology | Diagnoses | Quapril, | Kali, | | | | | LYLE | Morgan Vale, DO | MD Duncan | | | | | Procedures | [address] | [address] | | | | | [address] | [address] | [place], | | | | | CONSULT | [place], | [place] [address] | | | | | | [place] [address] | Phone: | | | | | | Phone: | [phone] | | | | | | [phone] | Fax: | | | | | | Fax: | [phone] | | | | | | [phone] | | +--------+--------+ + + + + Encounter Details +--------+---------+ + + + | Date | Type | Department | Care Team | Description | +--------+---------+ + + + | 01/30/ | Office | [facility] | Duncan Bass, | Shortness of breath | | 2017 | Visit | PULMONARY [address] | MD [address] | (Primary Dx); | | | | [place], | [place], [place] | Asthma, unspecified | | | | [place] [address] | [address] | asthma severity, | | | | [phone] | | unspecified whether | | | | | | complicated, | | | | | | unspecified whether | | | | | | persistent; | | | | | | Substernal | | | | | | discomfort | +--------+---------+ + + + Social History [...] + + + | Blood Pressure | 110/78 | 01/30/2017 2:32 PM | | | | | PDT | | + + + + + | Pulse | 65 | 01/30/2017 2:32 PM | | | | | PDT | | + + + + + | Temperature | - | - | | + + + + + | Respiratory Rate | - | - | | + + + + + | Oxygen Saturation | 97% | 01/30/2017 2:32 PM | | | | | PDT | | + + + + + | Inhaled Oxygen | - | - | | | Concentration | | | | + + + + + | Weight | 115.7 kg (255 lb) | 01/30/2017 2:32 PM | | | | | PDT | | + + + + + | Height | 165.1 cm (5' 5") | 01/30/2017 2:32 PM | | | | | PDT | | + + + + + | Body Mass Index | 42.43 | 01/30/2017 2:32 PM | | | | | PDT | | + + + + + documented in this encounter Patient Instructions Patient Instructions Duncan Bass MD - 01/30/2017 3:00 PM PDT ProAir (Albuterol inhalation) aerosol What is this medicine? ALBUTEROL (al BYOO ter ole) is a bronchodilator. It helps open up the airways in your lungs to make it easier to breathe. This medicine is used to treat and to prevent bronchospasm. How should I use this medicine? This medicine is for inhalation through the mouth. Follow the directions on your prescripti on label. Take your medicine at regular intervals. Do not use more often than directed. Make sure that you are using your inhaler correctly. Ask you doctor or health care provider if y ou have any questions. Talk to your raw stock dyeing machine tender regarding the use of this medicine in children. Special care may be needed. What side effects may I notice from receiving this medicine? Side effects that you should report to your doctor or health palliative care nurse practitioner as soon as p ossible: allergic reactions like skin rash, itching or hives, swelling of the face, lips, or tong ue breathing problems chest pain feeling faint or lightheaded, falls high blood pressure irregular heartbeat fever muscle cramps or weakness pain, tingling, numbness in the hands or feet vomiting Side effects that usually do not require medical attention (report to your doctor or health palliative care nurse practitioner if they continue or are bothersome): cough difficulty sleeping headache nervousness or trembling stomach upset stuffy or runny nose throat irritation unusual taste What may interact with this medicine? anti-infectives like chloroquine and pentamidine caffeine cisapride diuretics medicines for colds medicines for depression or for emotional or psychotic conditions medicines for weight loss including some herbal products methadone some antibiotics like clarithromycin, erythromycin, levofloxacin, and linezolid some heart medicines steroid hormones like dexamethasone, cortisone, hydrocortisone theophylline thyroid hormones What if I miss a dose? If you miss a dose, use it as soon as you can. If it is almost time for your next dose, use only that dose. Do not use double or extra doses. Where should I keep my medicine? Keep out of the reach of children. Store at room temperature between 15 and 30 degrees C (59 and 86 degrees F). The contents a re under pressure and may burst when exposed to heat or flame. Do not freeze. This medicine does not work as well if it is too cold. Throw away any unused medicine after the expiration date. Inhalers need to be thrown away after the labeled number of puffs have been used or b y the expiration date; whichever comes first. Ventolin HFA should be thrown away 12 months a fter removing from foil pouch. Check the instructions that come with your medicine. What should I tell my health care provider before I take this medicine? They need to know if you have any of the following conditions: diabetes heart disease or irregular heartbeat high blood pressure pheochromocytoma seizures thyroid disease an unusual or allergic reaction to albuterol, levalbuterol, sulfites, other medicines, f oods, dyes, or preservatives or trying to get breast-feeding What should I watch for while using this medicine? Tell your doctor or health palliative care nurse practitioner if your symptoms do not improve. Do not use ex tra albuterol. If your asthma or bronchitis gets worse while you are using this medicine, ca ll your doctor right away. If your mouth gets dry try chewing sugarless gum or sucking hard candy. Drink water as dire cted. NOTE:This sheet is a summary. It may not cover all possible information. If you have questi ons about this medicine, talk to your doctor, pharmacist, or health care provider. Copyright 2017 Gold Standard documented in this encounter Progress Notes Duncan Bass MD - 01/30/2017 3:00 PM PDTFormatting of this note might be different f rom the original. Pulmonary Consult Note 01/30/2017 HPI Aline Whitley is a 61 y.o. female patient of Morgan Conner DO here today for evaluatio n of dyspnea. Svitlana reports gradually his increasing shortness of breath over the last year. Aline are able to walk 100 yards at their own pace on level ground before developing sh ortness of breath. The distance walked is predominately limited by LYLE. One year ago, they f eel that they could walk 100+ yards. Triggers for their shortness of breath include exertio n. Relieving factors include rest. The patient does not exercise regularly. Aline reports that their exercise consists of minimal exertional activities such as walking. [facility] They have not completed pulmonary rehabilitation in the past. She does not cough chronically, and does not produce mucous. They have not had hemoptysis i n the last 6 months. No treatments have been used to this point for SOB. They have not had to be hospitalized for breathing issues in the past. Aline has not r equired intubation in the past. They have not had to go to the emergency room in the last ye ar related to a breathing problem. They have had 0 exacerbations in the past year requiring treatment with prednisone and 0 treatments with antibiotics. Aline has not been evaluated for nocturnal oxygen. The patient has a history of autoimmune hepatitis with varices. No prior bleeding of the v arices. She has been treated with Imuran for approximately 10 years with a gradual dose red uction over time. Recent pulmonary function tests have been performed. The patient denies any recent changes to her diuretic dose. No recent change in lower extr emity edema. Svitlana's main symptom is that of fatigue which she attributes to her liver disease. Lastly the patient has been experiencing substernal chest tightness with exertion. She had an echocardiogram approximate 6 months ago but has not had prior risk stratification for co ronary artery disease. A recent lower extremity duplex ultrasound was negative for DVT. Past Medical History: Past Medical History: Diagnosis Date Allergic rhinitis Arthritis Autoimmune hepatitis (HCC) Chronic back pain Depression Deviated nasal septum LYLE (dyspnea on exertion) Esophageal varices without bleeding (HCC) Female stress incontinence Hepatosplenomegaly Hypothyroid Insomnia Insomnia Liver cirrhosis (HCC) Obesity Osteoporosis Sensorineural hearing loss Thrombocytopenia (HCC) Vitamin D deficiency Past Surgical History: Past Surgical History: Procedure Laterality Date ADENOIDECTOMY CARPAL TUNNEL RELEASE Right 10/14/2015 Procedure: Right Carpal Tunnel Release; Surgeon: Ramon Stokes MD; Location: [facility] MAIN OR CHOLECYSTECTOMY HYSTERECTOMY endometriosis SINUS SURGERY TONSILLECTOMY TUBAL LIGATION Family History: Family History Problem Relation Age of Onset Cirrhosis Mother Etoh Other (see comment) Father in accident Diabetes Brother Kidney disease Brother on chronic HD Hypertension Brother Diabetes Brother Social History: She reports that she has never smoked. She has never used smokeless tobacco. She reports th at she does not drink alcohol or use drugs. Allergies: Allergies Allergen Reactions Hydrocodone Itching Oxycodone Itching and Rash insomnia Medications: Current Outpatient Prescriptions: azaTHIOprine (IMURAN) 50 mg tablet, 1/2 tablet [...] POLYSACCHARIDE 23-VALENT (PPSV23) 12/20/2005 PPD Test 11/02/2010 Review of Systems Constitutional: Denies fever, chills, sweats, fatigue/weakness, and unexpected weight prado ge. Sleep: Denies trouble sleeping, loud snoring, and excessive daytime sleepiness. Eyes: Denies vision change, and eye irritation. ENT: Denies earache, tinnitus, decreased hearing, nasal congestion, nosebleeds, sore throa t, and hoarseness. Resp: Denies hemoptysis or pleuritic chest pain. CV: Denies neck/chest/jaw pain with exertion, palpitations, lightheadedness, syncope, orth opnea, PND, peripheral edema, and claudication. GI: Denies trouble swallowing, heartburn, nausea, vomiting, abdominal pain, diarrhea,melen a, and hematochezia. Denies dysuria, hematuria, urinary frequency, difficulty emptying bladder, nocturia. Musculoskeletal: Denies joint pain/stiffness, joint swelling, muscle pain/cramps, muscle we akness. Derm: Denies rash, itching, dryness, and suspicious lesions. Neurologic: Denies frequent headaches, seizures, tremors, numbness or tingling in hands or feet, vertigo or difficulty walking in past 6 months. Psych Denies depression, anxiety, suicidal ideation. Endo Denies cold intolerance or heat intolerance. Heme Denies abnormal bruising, bleeding, and enlarged lymph nodes. Allergy Denies urticaria, allergic rash, hay fever Objective BP 110/78 | Pulse 65 | Ht 1.651 m (5' 5") | Wt 115.7 kg (255 lb) | SpO2 97% | Breastfe eding? No | BMI 42.43 kg/m General Appearance: Alert, cooperative, no distress, appears stated age. Head: Normocephalic, without obvious abnormality, atraumatic. Eyes: PERRL, conjunctiva/corneas clear. Ears: Normal external appearance, TM's not examined. Nose: Nares normal, septum midline, mucosa normal, no drainage or sinus tenderness. Throat: Lips, mucosa, and tongue normal; teeth and gums normal. MP 3. Neck: Supple, symmetrical, no adenopathy. Lungs: No accessory muscle use, breath sounds are clear to auscultation bilaterally, no wheezes, no crackles or rhonchi. No dullness to percussion. Chest Wall: No tenderness or deformity. Heart: Regular rate and rhythm, S1, S2 normal, no murmur, no rub or gallop Abdomen: Soft, non-tender. No hepatosplenomegaly. Extremities: Extremities normal, atraumatic, no cyanosis, clubbing. Edema none. Painful a nterior shins are noted on the left. Pulses: Radial pulses 2+ and symmetric Skin: Warm and dry Lymph nodes: Cervical and supraclavicular nodes normal Neurologic: Gait normal Data: Chest x-ray(s) from 11/23/16 were reviewed today with the patient present. They show mild e levation of the right hemidiaphragm. The patient's lung volumes appear reduced. Pulmonary function tests were performed on 12/01/16 and were reviewed and interpreted in cli sean today. They show prebronchodilator FEV1 of 1.73, 81% of predicted which rises to 2.05, 96% of predicted (18% improvement) with albuterol. Lung volumes show a residual volume of 1 .16, 63% of predicted and a total lung capacity of 3.87, 85% of predicted. The uncorrected DLCO was 22.3, 118% of predicted. Morgan Conner DO's notes were reviewed in clinic today. Assessment Svitlana is a 61-year-old nonsmoker who presents at the request of Morgan Conner DO for pulmon shelly consultation regarding shortness of breath. The patient is known to have autoimmune hepatitis with evidence of cirrhosis. No prior men tion of ascites or pleural effusions is reported. The patient is used Imuran for approximat kim 10 years to treat her autoimmune hepatitis. Over the last year or so gradually increasing shortness of breath is reported. Additional symptoms include substernal chest pressure with exertion. No other symptoms are noted. Pulmonary function tests are essentially normal with improvement of airflow following albut alicia. A chest x-ray from late October showed decreased lung volumes and elevated right hemidia phragm. The etiology of this patient's shortness of breath and chest heaviness is not clear. Given her apparent improved airflow with albuterol and it is reasonable to initiate a trial of a ProAir inhaler. That said I do not have a high clinical suspicion of reactive airway diseas e/asthma. Given the patient's normal physical exam, normal pulmonary function tests and fairly unrema rkable chest x-ray I would suggest that Morgan Conner DO consider further evaluation for pos sible ischemic heart disease prior to additional diagnostic pulmonary studies. Cirrhosis can be associated with shunt physiology involving the lungs. Commonly this manif ests with platypnea. I do not have a high suspicion of an opportunistic infection despite t he patient's Imuran given her normal physical exam and chest x-ray. Plan 1. ProAir 2 puffs up to every 4 hours as needed for shortness of breath. 2. Suggest consideration of evaluation for possible ischemic heart disease as described ab ove. 3. Pulmonary clinic follow-up appointment to review the patient's response to ProAir in ap proximate 4 weeks. 4. If evaluation of heart disease was unremarkable most likely would perform a CT scan of the chest with contrast. CC: Morgan Conner DO Tdocumented in this encounter Plan of Treatment Not on filedocumented as of this encounter Procedures + +--------+ + + + | Procedure Name | Priori | Date/Time | Associated Diagnosis | Comments | | | ty | | | | + +--------+ + + + | DIAGNOSTIC REPORT - | | 02/01/2017 | | Results for this | | EXTERNAL SCAN | | 10:44 AM | | procedure are in the | | | | PDT | | results section. | + +--------+ + + + | DIAGNOSTIC REPORT - | | 12/01/2016 | | Results for this | | EXTERNAL SCAN | | 12:00 AM | | procedure are in the | | | | PDT | | results section. | + +--------+ + + + | IMAGING REPORT - | | 11/23/2016 | | Results for this | | EXTERNAL SCAN | | 12:00 AM | | procedure are in the | | | | PDT | | results section. | + +--------+ + + + | LABS - EXTERNAL SCAN | | 11/07/2016 | | Results for this | | | | 12:00 AM | | procedure are in the | | | | PDT | | results section. | + +--------+ + + + | IMAGING REPORT - | | 12/14/2012 | | Results for this | | EXTERNAL SCAN | | 12:00 AM | | procedure are in the | | | | PDT | | results section. | + +--------+ + + + documented in this encounter Results DIAGNOSTIC REPORT - EXTERNAL SCAN (02/01/2017 10:44 AM PDT) + + + | Narrative | Performed At | + + + | Ordered by an | | | unspecified provider. | | + + + DIAGNOSTIC REPORT - EXTERNAL SCAN (12/01/2016 12:00 AM PDT) + + + | Narrative | Performed At | + + + | Ordered by an | | | unspecified provider. | | + + + IMAGING REPORT - EXTERNAL SCAN (11/23/2016 12:00 AM PDT) + + + | Narrative | Performed At | + + + | Ordered by an | | | unspecified provider. | | + + + LABS - EXTERNAL SCAN (11/07/2016 12:00 AM PDT) + + + | Narrative | Performed At | + + + | Ordered by an | | | unspecified provider. | | + + + IMAGING REPORT - EXTERNAL SCAN (12/14/2012 12:00 AM PDT) + + + | Narrative | Performed At | + + + | Ordered by an | | | unspecified provider. | | + + + documented in this encounter Visit Diagnoses + + | Diagnosis | + + | Shortness of breath - Primary | + + | Asthma, unspecified asthma severity, unspecified whether complicated, unspecified | | whether persistent | + + | Substernal discomfort Precordial pain | + + documented in this encounter
--- OUTSIDE RECORDS SUMMARY | ~2019-09-02 | XMS | Encounter Summary ---
Demographics + + + | Address | [address] | | | [place] [address] | + + + | Home Phone | | + + + | Preferred Language | Unknown | + + + | Marital Status | | + + + | Druze Affiliation | Unknown | + + + | Race | Unknown | + + + | Ethnic Group | Unknown | + + + Author + + + | Author | [facility] | | | and Kehsawnana | + + + | Organization | [facility] | | | and Keshawnana | + + + | Address | Unknown | + + + | Phone | Unavailable | + + + Support + + + + + | Name | Relationship | Address | Phone | + + + + + | Zoran Whitley | ECON | [address] | | | | | [id number], [place] | | | | | [address] | | + + + + + | Roseann Walker | ECON | [place] | | | | | [address] | | + + + + + Care Team Providers + +------+ + | Care Poem Writer Name | Role | Phone | + [...] | | [address] | [place] [address] | | | | | [place] [address] | | | | | | [phone] | | | +--------+ + + + [...]
--- OUTSIDE RECORDS SUMMARY | ~2019-09-02 | XMS | Encounter Summary ---
Demographics + + + | Address | [address] | | | [place] [address] | + + + | Home Phone [...] + | Author | [facility] | | | and Keshawnana | + + + | Organization | [facility] | | | and [place]ana | + + + | Address | Unknown | + + + | Phone | Unavailable | + + + Support + + + + + | Name | Relationship | Address | Phone | + + + + + | Zoran Whitley | ECON | [address] | | | | | [id number], [place] | | | | | [address] | | + + + + + | Roseann Walker | ECON | [place] | | | | | [address] | | + + + + + Care Team Providers + +------+ + | Care Beater Room Supervisor Name | Role | Phone | [...] | ORTHOPEDIC SURGERY | MD Mehul [address] [facility] | | | | | [address] [facility] | [place] | | | | | [place] | [address] | | | | | [address] | | | | | | [phone] | | | +--------+ + + + [...]
--- OUTSIDE RECORDS SUMMARY | ~2019-09-02 | XMS | Encounter Summary ---
Demographics + + + | Address | [address] | | | [place] [address] | + + + | Home Phone | | + + + | Preferred Language | Unknown | + + + | Marital Status | | + + + | Jainism Affiliation | Unknown | + + + | Race | Unknown | + + + | Ethnic Group | Unknown | + + + Author + + + | Author | [facility] | | | and Keshawnana | + + + | Organization | [facility] | | | and K[place]hawnana | + + + | Address | Unknown | + + + | Phone | Unavailable | + + + Support + + + + + | Name | Relationship | Address | Phone | + + + + + | Zoran Whitley | ECON | [address] | | | | | [id number], [place] | | | | | [address] | | + + + + + | Roseann Walker | ECON | [place] | | | | | [address] | | + + + + + Care Team Providers + +------+ + | Care Rehab Consultant Name | Role | Phone | + [...] | | [address] | [place] [address] | | | | | [place] [address] | | | | | | [phone] | | | +--------+ + + + [...]
--- OUTSIDE RECORDS SUMMARY | ~2019-09-02 | XMS | Encounter Summary ---
Demographics + + + | Address | [address] | | | [place] [address] | + + + | Home Phone | | + + + | Preferred Language | Unknown | + + + | Marital Status | | + + + | Mormon Affiliation | Unknown | + + + | Race | Unknown | + + + | Ethnic Group | Unknown | + + + Author + + + | Author | [facility] | | | and [place] | + + + | Organization | [facility] | | | and [place]hawnana | + + + | Address | Unknown | + + + | Phone | Unavailable | + + + Support + + + + + | Name | Relationship | Address | Phone | + + + + + | Zoran Whitley | ECON | [address] | | | | | [id number], [place] | | | | | [address] | | + + + + + | Roseann Walker | ECON | [place] | | | | | [address] | | + + + + + Care Team Providers + +------+ + | Care Service Tech Name | Role | Phone | + +------+ + PCP | Unavailable | + +------+ + Encounter Details +--------+ + + + + | Date | Type | Department | Care Team | Description | +--------+ + + + + | 11/26/ | Orders Only | [facility] | Provider, | | | 2018 | | [facility] GENER[facility] OP | MD [address] | | | | | CONVERSION [address] | [place] | | | | | [address] [place], [place] | [place] [address] | | | | | [address] | | | | | | [phone] | | | +--------+ + + + [...]
--- OUTSIDE RECORDS SUMMARY | ~2019-09-02 | XMS | Encounter Summary ---
Demographics + + + | Address | [address] | | | [place] [address] | + + + | Home Phone | | + + + | Preferred Language | Unknown | + + + | Marital Status | | + + + | Pentecostal Affiliation | Unknown | + + + | Race | Unknown | + + + | Ethnic Group | Unknown | + + + Author + + + | Author | [facility] | | | and Keshawnana | + + + | Organization | [facility] | | | and Keshawnana | + + + | Address | Unknown | + + + | Phone | Unavailable | + + + Support + + + + + | Name | Relationship | Address | Phone | + + + + + | Zoran Whitley | ECON | [address] | | | | | [id number], [place] | | | | | [address] | | + + + + + | Roseann Walker | ECON | [place] | | | | | [address] | | + + + + + Care Team Providers + +------+ + | Care Certified Medical Coder Name | Role | Phone | + +------+ + PCP | Unavailable | + +------+ + Reason for Visit + + + | Reason | Comments | + + + | Dressing Change | NURSE VISIT | + + + Encounter Details +--------+ + + + + | Date | Type | Department | Care Team | Description | +--------+ + + + + | 10/15/ | Clinical | [facility] | Quirino Olson | Dressing change or | | 2015 | Support | ORTHOPEDIC SURGERY | [address] | removal, surgical | | | | [address] [facility] | [facility] | wound (Primary Dx) | | | | [place], [place] | [place] [address] | | | | | [address] | [phone] | | | | | [phone] | | | +--------+ + + + [...] documented as of this encounter Progress Notes Bruna Juarez CMA - 10/16/2015 12:15 PM PDTPatient came into office for a dressing change which was done. Patient had a right carpal tunnel release on 10/14/15. Incision is intact, no drainage, no redness or odor. A 2 x 4 Band aid was applied to incision and also put on a [facility] [place] and wrist brace. Patient was instructed to keep incision clean and dry, change ban d aid daily, elevate and wiggle fingers throughout the day. Patient also instructed to conta ct our office immediately if she experiences any signs of infection such as redness, drainag e, fever, odor. Patient voiced understanding. Patient confirmed she will be here for her [facility] follow-up appt in our office. Patient will call with any question or concerns, if any , between now and the appointment. documented in this enc ounter Plan of Treatment Not on filedocumented as of this encounter Visit Diagnoses + + | Diagnosis | + + | Dressing change or removal, surgical wound - Primary Encounter for change or removal | | of surgical wound dressing | + + documented in this encounter"
--- OUTSIDE RECORDS SUMMARY | ~2019-09-02 | XMS | Encounter Summary ---
Demographics + + + | Address | [address] | | | [place] [address] | + + + | Home Phone | | + + + | Preferred Language | Unknown | + + + | Marital Status | | + + + | Shinto Affiliation | Unknown | + + + | Race | Unknown | + + + | Ethnic Group | Unknown | + + + Author + + + | Author | [facility] | | | and Keshawnana | + + + | Organization | [facility] | | | and Keshawnana | + + + | Address | Unknown | + + + | Phone | Unavailable | + + + Support + + + + + | Name | Relationship | Address | Phone | + + + + + | Zoran Whitley | ECON | [address] | | | | | [id number], [place] | | | | | [address] | | + + + + + | Roseann Walker | ECON | [place] | | | | | [address] | | + + + + + Care Team Providers + +------+ + | Care Compressed Air Pile Driver Operator Name | Role | Phone | + +------+ + PCP | Unavailable | + +------+ + Encounter Details +--------+ + + + + | Date | Type | Department | Care Team | Description | +--------+ + + + + | 01/10/ | Abstract | [place] [facility] | DATA MIGRATION TRACY | | | 2011 | | Conversion Location | SR | | | | | [address] | | | | | | [place], [place] | | | | | | [address] | | | | | | [phone] | | | +--------+ + + + [...]
--- OUTSIDE RECORDS SUMMARY | ~2019-09-02 | XMS | Encounter Summary ---
Demographics + + + | Address | [address] | | | [place] [address] | + + + | Home Phone [...] + | Author | [facility] | | | and Keshawnana | + + + | Organization | [facility] | | | and Keshawnana | + + + | Address | Unknown | + + + | Phone | Unavailable | + + + Support + + + + + | Name | Relationship | Address | Phone | + + + + + | Zoran Whitley | ECON | [address] | | | | | [id number], [place] | | | | | [address] | | + + + + + | Roseann Walker | ECON | [place] | | | | | [address] | | + + + + + Care Team Providers + +------+ + | Care Hearing Therapist Name | Role | Phone | + [...] | [address] [facility] | Caio [address]yes | chronicity (Primary | | | | [place], [place] | [place] [address] | Dx) | | | | [address] | [phone] | | | | | [phone] | | | +--------+ + + + [...]
--- OUTSIDE RECORDS SUMMARY | ~2019-09-02 | XMS | Encounter Summary ---
Demographics + + + | Address | [address] | | | [place] [address] | + + + | Home Phone | | + + + | Preferred Language | Unknown | + + + | Marital Status | | + + + | Sikh Affiliation | Unknown | + + + | Race | Unknown | + + + | Ethnic Group | Unknown | + + + Author + + + | Author | [facility] | | | and Keshawnana | + + + | Organization | [facility] | | | and Keshawnana | + + + | Address | Unknown | + + + | Phone | Unavailable | + + + Support + + + + + | Name | Relationship | Address | Phone | + + + + + | Zoran Whitley | ECON | [address] | | | | | [id number], [place] | | | | | [address] | | + + + + + | Roseann Walker | ECON | [place] | | | | | [address] | | + + + + + Care Team Providers + +------+ + | Care Inspector Outside Production Name | Role | Phone | + [...] | | | | | | | [facility] | | | | | | [...] | | | | | [address] | [place] | | | | | [place], [place] | [address] | | | | | [address] | | | | | | [phone] | | | +--------+ + + + [...] + + | Periph | 10/14/15; 657; [id number] | 10/14/15657 by | 10/14/15 100 by [...]
--- OUTSIDE RECORDS SUMMARY | ~2019-09-02 | XMS | Encounter Summary ---
Demographics + + + | Address | [address] | | | [place] [address] | + + + | Home Phone [...] | Author | [facility] | | | and Keshawnana | + + + | Organization | [facility] | | | and Keshawnana | + + + | Address | Unknown | + + + | Phone | Unavailable | + + + Support + + + + + | Name | Relationship | Address | Phone | + + + + + | Zoran Whitley | ECON | [address] | | | | | [id number], [place] | | | | | [address] | | + + + + + | Roseann Walker | ECON | [place] | | | | | [address] | | + + + + + Care Team Providers + +------+ + | Care Line Welder Name | Role | Phone | + [...] | | [facility] [address] | [address] | | | | | [address] [place] | [place] [address] | | | | | [place] [address] | | | | | | [phone] | | | +--------+ + + + [...]
--- OUTSIDE RECORDS SUMMARY | ~2019-09-02 | XMS | Encounter Summary ---
Demographics + + + | Address | [address] | | | [place] [address] | + + + | Home Phone [...] | Author | [facility] | | | and Keshawnana | + + + | Organization | [facility] | | | and Keshawnana | + + + | Address | Unknown | + + + | Phone | Unavailable | + + + Support + + + + + | Name | Relationship | Address | Phone | + + + + + | Zoran Whitley | ECON | [address] | | | | | [id number], [place] | | | | | [address] | | + + + + + | Roseann Walker | ECON | [place] | | | | | [address] | | + + + + + Care Team Providers + +------+ + | Care Pin Setter Name | Role | Phone | + [...] | | [address] [place] | [place] [address] | | | | | [place] [address] | | | | | | [phone] | | | +--------+ + + + [...] | US ABDOMEN COMPLETE | Routin | 04/05/2012 | | Results for this | | | e | 8:20 AM | | procedure are in the | | | | PST | | results section. | + +--------+ + + + documented in this encounter Results US Abdomen Complete (04/05/2012 8:20 AM PST) + + | Specimen | [...]
--- OUTSIDE RECORDS SUMMARY | ~2019-09-02 | XMS | Encounter Summary ---
Demographics + + + | Address | [address] | | | [place] [address] | + + + | Home Phone | | + + + | Preferred Language | Unknown | + + + | Marital Status | | + + + | Mandaen Affiliation | Unknown | + + + | Race | Unknown | + + + | Ethnic Group | Unknown | + + + Author + + + | Author | [facility] | | | and Keshawnana | + + + | Organization | [facility] | | | and Keshawnana | + + + | Address | Unknown | + + + | Phone | Unavailable | + + + Support + + + + + | Name | Relationship | Address | Phone | + + + + + | Zoran Whitley | ECON | [address] | | | | | [id number], [place] | | | | | [address] | | + + + + + | Roseann Walker | ECON | [place] | | | | | [address] | | + + + + + Care Team Providers + +------+ + | Care Donor Specialist Name | Role | Phone | [...] | | [address] [place] | [place] [address] | | | | | [place] [address] | | | | | | [phone] | | | +--------+ + + + [...] +--------+ + + + | CT ABDOMEN W | Routin | 12/14/2012 | | Results for this | | CONTRAST | e | 8:20 AM | | procedure are in the | | | | PDT | | results section. | + +--------+ + + + documented in this encounter Results CT Abdomen w Contrast (12/14/2012 8:20 AM PDT) + + | Specimen | [...]
--- OUTSIDE RECORDS SUMMARY | ~2019-09-02 | XMS | Clinical Summary ---
Demographics + + + | Address | [address] | | | [place] [address] | + + + | Home Phone [...] | Author | [facility] | | | and Keshawnana | + + + | Organization | [facility] | | | and Keshawnana | + + + | Address | Unknown | + + + | Phone | Unavailable | + + + Support + + + + + | Name | Relationship | Address | Phone | + + + + + | Zoran Whitley | ECON | [address] | | | | | [id number], [place] | | | | | [address] | | + + + + + | Roseann Walker | ECON | [place] | | | | | [address] | | + + + + + Care Team Providers + +------+ + | Care Central Melt Specialist Name | Role | Phone | [...] +--------+ +---------+--------+ | MEDICARE | MEDICA | [id number] | | [phone] | | Medica | | | RE | | 019-Pr | 5 | | re | | | PART A | | esent | | | | | | AND B | | | | | | + +--------+ +--------+ +---------+--------+ | MEDICARE | MEDICA | [id number] | | [phone] | | Medica | | | RE | | 019-Pr | 5 | | re | | | PART A | | esent | | | | | | AND B | | | | | | + +--------+ +--------+ +---------+--------+ | [facility] | IHS | [id number] | 12/07/19 | | | Indemn | | SERVICE | YELLOW | | 15-Pre | | | ity | | | HAWK | | sent | | | | + +--------+ +--------+ +---------+--------+ | [facility] | [facility]HS | [id number] | 05/01/19 | | | Indemn | | SERVICE | YELLOW | | 19-Pre | | | ity | | | HAWK | | sent | | | | + +--------+ +--------+ +---------+--------+ | [employer] | MEDICA | [id number] | | [phone] | | Medica | [...] Person | Self [birth year] | [address] | | | al/Fam | | 1954 | | [address] [place] | | | [place] | | | 4 (Home) | [address] | | | | | | [phone] | | | | | | | 3 (Work) | | + +--------+ +--------+ + + | Aline Whitley | Person | Self | [birth year] | | [address] | | | al/Fam | | 1954 | | [address] [place], [place] | | | [place] | | | 4 (Home) | [address] | + +--------+ +--------+ + + Advance Directives + + + + + | Type | Date Recorded | Patient | Explanation | | | | Manager Advertising | | + + + + + | Power of | | | | | Dairy Farm Manager | | | | + + + [...]
--- OUTSIDE RECORDS SUMMARY | ~2019-09-02 | XMS | Encounter Summary ---
Demographics + + + | Address | [address] | | | [place] [address] | + + + | Home Phone [...] | Author | [facility] | | | and Keshawnana | + + + | Organization | [facility] | | | and Keshawnana | + + + | Address | Unknown | + + + | Phone | Unavailable | + + + Support + + + + + | Name | Relationship | Address | Phone | + + + + + | Zoran Whitley | ECON | [address] | | | | | [id number], [place] | | | | | [address] | | + + + + + | Roseann Walker | ECON | [place] | | | | | [address] | | + + + + + Care Team Providers + +------+ + | Care Make Up Worker Name | Role | Phone | [...] | | [address] [place] | [place] [address] | | | | | [place] [address] | | | | | | [phone] | | | +--------+ + + + [...]
--- OUTSIDE RECORDS SUMMARY | ~2019-09-02 | XMS | Encounter Summary ---
Demographics + + + | Address | [address] | | | [place] [address] | + + + | Home Phone | | + + + | Preferred Language | Unknown | + + + | Marital Status | | + + + | Voodoo Affiliation | Unknown | + + + | Race | Unknown | + + + | Ethnic Group | Unknown | + + + Author + + + | Author | [facility] | | | and [place] | + + + | Organization | [facility] | | | and [place] | + + + | Address | Unknown | + + + | Phone | Unavailable | + + + Support + + + + + | Name | Relationship | Address | Phone | + + + + + | Zoran Whitley | ECON | [address] | | | | | [id number] | | | | | [address] | | + + + + + | Roseann Monolongsahil | ECON | [place] | | | | | [address] | | + + + + + Care Team Providers + +------+ + | Care Store Protection Specialist Name | Role | Phone | [...] | +--------+ + + + + | 11/01/ | Emergency | [facility] | Ronald Kasper MD | [facility] | | 2019 | | [facility] | [address] | (Primary Dx) | | | | CENTER [address] | [place] | | | | | [place] | [address] | | | | | [address] | | | | | | [phone] | Reza Pittman, | | | | | | [address] | | | | | | [place], [place] | | | | | | [address] | | | | | | | [...] + + + | Blood Pressure | 107/48 | 11/01/2018 4:45 PM | | | | | PDT | | + + + + + | Pulse | 102 | 11/01/2018 4:53 PM | | | | | PDT | | + + + + + | Temperature | 37.1 C (98.8 F) | 11/01/2018 2:31 PM | | | | | PDT | | + + + + + | Respiratory Rate | 16 | 11/01/2018 2:31 PM | | | | | PDT | | + + + + + | Oxygen Saturation | 99% | 11/01/2018 4:53 PM | | | | | PDT | | + + + + + | Inhaled Oxygen | - | - | | | Concentration | | | | + + + + + | Weight | 94.3 kg (208 lb) | 11/01/2018 2:31 PM | | | | | PDT | | + + + + + | Height | 165.1 cm (5' 5") | 11/01/2018 2:31 PM | | | | | PDT | | + + + + + | Body Mass Index | 34.61 | 11/01/2018 2:31 PM | | | | | PDT [...] INFORMATION | SUNNY | Routin | | 11/01/2018 2:07 PM | | EXCHANGE | | e | | PDT | + +------+--------+ + + documented as of this encounter Procedures + +--------+ + + + | Procedure Name | Priori | Date/Time | Associated Diagnosis | Comments | | | ty | | | | + +--------+ + + + | CULTURE, BODY FLUID, | STAT | 11/01/2018 | | Results for this | | AEROBE | | 4:48 PM | | procedure are in the | | | | PDT | | results section. | + +--------+ + + + | CULTURE, BODY FLUID, | STAT | 11/01/2018 | | Results for this | | ANAEROBE | | 4:48 PM | | procedure are in the | | | | PDT | | results section. | + +--------+ + + + | CULTURE, BODY FLUID, | STAT | 11/01/2018 | | Results for this | | STERILE, SMEAR, | | 4:48 PM | | procedure are in the | | WITH ANAEROBES | | PDT | | results section. | + +--------+ + + + | CELL COUNT WITH | STAT | 11/01/2018 | | Results for this | | DIFFERENTIAL, BODY | | 4:48 PM | | procedure are in the | | FLUID | | PDT | | results section. | + +--------+ + + + | PROTIME INR | STAT | 11/01/2018 | | Results for this | | | | 3:10 PM | | procedure are in the | | | | PDT | | results section. | + +--------+ + + + | CBC WITH | STAT | 11/01/2018 | | Results for this | | DIFFERENTIAL | | 3:10 PM | | procedure are in the | | | | PDT | | results section. | + +--------+ + + + | LIPASE | STAT | 11/01/2018 | | Results for this | | | | 3:10 PM | | procedure are in the | | | | PDT | | results section. | + +--------+ + + + | COMPREHENSIVE | STAT | 11/01/2018 | | Results for this | | METABOLIC PANEL | | 3:10 PM | | procedure are in the | | | | PDT | | results section. | + +--------+ + + + | ABDOMINAL | Routin | 11/01/2018 | | Results for this | | PARACENTESIS | e | 2:45 PM | | procedure are in the | | | | PDT | | results section. | + +--------+ + + + | ED INFORMATION | Routin | 11/01/2018 | | | | EXCHANGE | e | 2:07 PM | | | | | | PDT | | | + +--------+ + + + +---+--------+ | | | | | Proced | | | ure | | | Note - | | | Erasmo, | | | Lab In | | | | | | Hlseve | | | n - | | | 11/01/ | | | 2019 | | | 2:08 | | | PM PDT | | [...] | | | FICATI | | | ON?07/ | | | 04/201 | | | 9 | | | 14:07? | | | HOPTOW | | | IT, | | | MARISOL | | | INE?MR | | | N: | | | [id number] | | | [id number] | | | riteri | | | [...] | | | al/Gege | | | gical1 | | | /17/19 | | | 12:00 | | | AM | | | [facility] [place] | | | y | | | [...] | | | St. | | | [place] | | | y | | | [...] | | | [facility] | | | YS.11/ | | | 13/18 | | | 12:00 | | | AM | | | [facility] | [place] | | | y | | | Hospit | | | al?? | | | PATIEN | | | T IS A | | | | | | YELLOW | | | [facility] | | | MEMBER | | | .?? | | | PLEASE | | | REFER | | | | | | PATIEN | | | T TO | | | YELLOW | | | [facility] | | | CLIN[facility] | | | FOR | | | NON | | | EMERGE | | | NT | | | MEDICA | | | L | | | NEEDS. | | | ?? | | | YELLOW | | | [facility] | | | CLIN[facility] | | | CAN | | | SEE | | | PATIEN | | | TS | | | SAME | | | DAY | | | FOR | | | APTS | | | IF | | | PATIEN | | | T | | | CALLS | | | FIRST | | | THING | | | IN THE | | | | | | MORNIN | | | G.Pres | | | cripti | | | on | | | Drug | | | [...] | | | St. | | | [place] | | | y | | | Hospit | | | al 9 0 | | | Total | | | 11 0 | | | Note: | | [...] | | out | | | of 11 | | | in the | | [...] | | | int | | | Stephan 4, | | | 2019 | | | [facility] | | | ence | | | St[facility] | | | [facility] | [place] | | | [place] | | | Emerge | | | ncy | | | abd | | | pain | | | Jamel | | | 15, | | | 2019 | | | [facility] | [place] | | | y H. | | [...] | | | St. | | | [place] | | | y H. | | [...] | | | St. | | | [place] | | | y H. | | [...] | | | St. | | | [place] | | | y H. | | [...] | | | St. | | | [place] | | | y H. | | [...] | | | liver | | | Yusef | | | 2, | | | 2019 | | | [facility] | [place] | | | [facility]. | | | [place] | | | [place] | | | Emerge | | | ncy | | | | | | Hypoth | | | yroidi | | | sm, | | | unspec | | | ified | | | | | | Shortn | | | ess of | | | | | | breath | | | | | | Other | | | long | | | term | | | (curre | | | nt) | | | drug | | | therap | | | y | | | Other | | | ascite | | | s | | | Liver | | | diseas | | | e, | | | unspec | | | ified | | | Nov | | | 12, | | | 2018 | | | [facility] | [place] | | | [facility]. | | | [place] | | | [place] | | | Emerge | | | ncy | | | | | | Unspec | | | ified | | | abdomi | | | nal | | | pain | | | Long | | | term | | | (curre | | | nt) | | | use of | | | | | | opiate | | | | | | analge | | | sic | | | Other | | | long | | | term | | | (curre | | | nt) | | | drug | | | therap | | | y | | | Allerg | | | y | | | status | | | to | | | narcot | | | ic | | | agent | | | status | | | | | | Hypoth | | | yroidi | | | sm, | | | unspec | | | ified | | | Oct | | | 16, | | | 2018 | | | [facility] | [place] | | | [facility]. | | | [place] | | | [place] | | | Emerge | | | ncy | | | Chief | | | Compla | | | int: | | | PAIN/D | | | ISORIE | | | NTATED | | | Sep | | | 30, | | | 2018 | | | [facility] | [place] | | | y H. | | | [place] | | | [place] | | | Emerge | | | ncy | | | | | | Unspec | | | ified | | | fractu | | | re of | | | first | | | lumbar | | | | | | verteb | | | ra, | | | initia | | | l | | | encoun | | | ter | | | for | | | closed | | | | | | fractu | | | re | | | Low | | | back | | | pain | | | | | | Consti | | | pation | | | , | | | unspec | | | ified | | | | | | Fall | | | on | | | same | | | level, | | | | | | unspec | | | ified, | | | | | | initia | | | l | | | encoun | | | ter | | | Other | | | long | | | term | | | (curre | | | nt) | | | drug | | | therap | | | y | | | Allerg | | | y | | | status | | | to | | | narcot | | | ic | | | agent | | | status | | | | | | Hypoth | | | yroidi | | | sm, | | | unspec | | | ified | | | | | | Recent [...] | | | int | | | Apr | | | 20, | | | 2019 | | | [facility] | [place] | | | y H. | | [...] | | | 2018 | | | [facility] | | | | | | Health [...] | | | St. | | | [place] | | | y H. | | [...] | | | ovider | | | PRC | | | Type | | | Phone | | | Fax | | | Servic | | | e | | | Dates | | | PHILIPPE | | | ON, | | | TIMOTH | | | Y , MD | | | | | | Hydropress Operator | | | al | | [...] | | | //secu | | | re.erasmo | | | ecarep | | | rukhsana.co | | | m/brandyn | | | ent/95 | | | [id number] | | | -1b64- | | | [id number] | | | [id number]-c2 | | | [id number] | | | [id number] | | | PLEASE | | | [...] | +---+--------+ documented in this encounter Results Culture, Body Fluid, Anaerobe (11/01/2018 4:48 PM PDT) + + + + + [...] + | [facility] | [address] | [place] | [phone] | | [facility] | | [address] | | | - LABORATORY | | | | + + + + + Culture, Body Fluid, Aerobe (11/01/2018 4:48 PM PDT) + + + + + [...] + + + | Gram Stain | 2+ White Blood Cells | | [facility] | | | Result | | | [facility] | | | | | | MEDICAL | | | | | | CENTER - | | | | | | LABORATORY | | + + + + + + | Gram Stain | No organisms seen | | [facility] | | | Result | | | [facility] | | [...] + | [facility] | [address] | [place] | [phone] | | [facility] | | [address] | | | - LABORATORY | | | | + + + + + Cell Count with Differential, Body Fluid (11/01/2018 4:48 PM PDT) + + + + + + | Component | Value | Ref Range | Performed | Pathologist | | | | | At | Signature | + + + + + + | Specimen | Comment: [facility] | | [facility] | | | Source | liver | | [facility] | | | | | | MEDICAL | | | | | | CENTER - | | | | | | LABORATORY | | + + + + + + | BF | Hazy (A) | Clear | [facility] | | | Appearance | | | [facility] | | | | | | MEDICAL | | | | | | CENTER - | | | | | | LABORATORY | | + + + + + + | BF | 334 (H) | 0 - 150 | [facility] | | | Nucleated | | cells/uL | [facility] | | | cells | | | MEDICAL | | | | | | CENTER - | | | | | | LABORATORY | | + + + + + + | BF RBC | 2,000 | Reference Range | [facility] | | | | | Not | [facility] | | | | | Established | MEDICAL | | | | | cells/uL | CENTER - | | | | | | LABORATORY | | + + + + + + | % | 41.9 | % | [facility] | | | Mononuclear | | | [facility] | | | Cells, | | | MEDICAL | | | Body Fluid | | | CENTER - | | | | | | LABORATORY | | + + + + + + | BF | 58.1 | % | [facility] | | | Polynuclear | | | [facility] | | | % | | | MEDICAL | | | [...] [address] | [place] | [phone] | | [facility] | | [address] | | | - LABORATORY | | | | + + + + + Protime INR (11/01/2018 3:10 PM PDT) + + + + + + | Component | Value | Ref Range | Performed | Pathologist | | | | | At | Signature | + + + + + + | Prothrombin | 18.9 (H) | 11.3 - 13.9 | [facility] | | | Time | | seconds | [facility] | | | | | | MEDICAL | | | | | | CENTER - | | | | | | LABORATORY | | + + + + + + | INR | 1.6 (H)Comment: Usual | 0.9 - 1.1 | [facility] | | | | Oral Anticoagulation | | [facility] | | | | Range: 2.0 - [...] [address] | [place] | [phone] | | [facility] | | [address] | | | - LABORATORY | | | | + + + + + Lipase (11/01/2018 3:10 PM PDT) + + + + + + | Component | Value | Ref Range | Performed | Pathologist | | | | | At | Signature | + + + + + + | Lipase | 42Comment: New method in | 12 - 53 U/L | [facility] | | | | use as of June 27, | | [facility] | | | | 2019. Check reference | | MEDICAL | | | | range for changes.Some | | CENTER - | | | | analytes show | | LABORATORY | | | | significant variation | | | | | | from the previous | | | | | | method.It may be | | | | | | necessary to set a new | | | | | | baseline for this | | | | | | analyte. | | | | + + + + + + + + | Specimen | + + | Blood | + + + + + + + | Performing | Address | City/State/Zipcode | Phone Number | | Organization | | | | + + + + + | [facility] | [address] | [place] | [phone] | | [facility] | | [address] | | | - LABORATORY | | | | + + + + + Comprehensive Metabolic Panel (11/01/2018 3:10 PM PDT) + + + + + + | Component | Value | Ref Range | Performed | Pathologist | | | | | At | Signature | + + + + + + | Na | 136 | 136 - 145 | [facility] | | | | | mmol/L | [facility] | | | | | | MEDICAL | | | | | | CENTER - | | | | | | LABORATORY | | + + + + + + | K | 4.1 | 3.4 - 5.1 | [facility] | | | | | mmol/L | [facility] | | | | | | MEDICAL | | | | | | CENTER - | | | | | | LABORATORY | | + + + + + + | Cl | 106 | 98 - 107 mmol/L | [facility] | | | | | | [facility] | | | | | | MEDICAL | | | | | | CENTER - | | | | | | LABORATORY | | + + + + + + | CO2 | 26 | 20 - 31 mmol/L | [facility] [...] + + + + | Glucose | 119 (H) | 60 - 106 mg/dL | [facility] | | | | | | [facility] | | | | | | MEDICAL | | | | | | CENTER - | | | | | | LABORATORY | | + + + + + + | BUN | 12 | 9 - 23 mg/dL | [facility] | | | | | | [facility] | | | | | | MEDICAL | | | | | | CENTER - | | | | | | LABORATORY | | + + + + + + | Creatinine | 0.87 | 0.55 - 1.02 | [facility] | [...] | mL/min/1.73m2 | [facility] | | | KITT[place]IAN | RATE,ESTIMATED | | MEDICAL | | | | mL/min/1.21g3Wnok than | | CENTER - | | [...] + + + + | Albumin | 2.4 (L) | 3.2 - 4.8 g/dL | [facility] | | | | | [facility] | | | | | | MEDICAL | | | | | | CENTER - | | | | | | LABORATORY | | + + + + + + | Bilirubin | 2.9 (H) | 0.3 - 1.2 mg/dL | [facility] | | | Total | | | [facility] | | | | | | MEDICAL | | | | | | CENTER - | | | | | | LABORATORY | | + + + + + + | Total | 7.0 | 5.7 - 8.2 g/dL | [facility] | | | Protein | | | [facility] | | | | | | MEDICAL | | | | | | CENTER - | | | | | | LABORATORY | | + + + + + + | AST | 35 (H) | 0 - 34 U/L | [facility] | | | | | | [facility] | | | | | | MEDICAL | | | | | | CENTER - | | | | | | LABORATORY | | + + + + + + | ALT | 14 | 10 - 49 U/L | [facility] | | | | | | [facility] | | | | | | MEDICAL | | | | | | CENTER - | | | | | | LABORATORY | | + + + + + + | Alkaline | 146 (H) | 46 - 116 U/L | [facility] | | | Phosphatase | | | [facility] | | | | | | MEDICAL | | | | | | CENTER - | | | | | | LABORATORY | | + + + + + + | Globulin | 4.6 (H) | 2.1 - 3.8 g/dL | [...] + + + + | BUN/Creatin | 13.8 | | [facility] | | | ine [...] [address] | [place] | [phone] | | [facility] | | [address] | | | - LABORATORY | | | | + + + + + CBC with Differential (11/01/2018 3:10 PM PDT) + + + + + + | Component | Value | Ref Range | Performed | Pathologist | | | | | At | Signature | + + + + + + | WBC | 4.9 | 4.0 - 11.0 K/uL | [facility] | | | | | | [facility] | | | | | | MEDICAL | | | | | | CENTER - | | | | | | LABORATORY | | + + + + + + | RBC | 3.15 (L) | 3.70 - 5.20 | [facility] | | | | | M/uL | [facility] | | | | | | MEDICAL | | | | | | CENTER - | | | | | | LABORATORY | | + + + + + + | Hemoglobin | 10.0 (L) | 11.5 - 16.0 | [facility] | | | | | g/dL | [facility] | | | | | | MEDICAL | | | | | | CENTER - | | | | | | LABORATORY | | + + + + + + | Hematocrit | 29.3 (L) | 34.0 - 47.0 % | [facility] | | | | | | [facility] | | | | | | MEDICAL | | | | | | CENTER - | | | | | | LABORATORY | | + + + + + + | MCV | 93.0 | 83.0 - 101.0 fL | [facility] | | | | | | [facility] | | | | | | MEDICAL | | | | | | CENTER - | | | | | | LABORATORY | | + + + + + + | MCH | 31.7 | 28.0 - 35.0 pg | [facility] | | | | | | [facility] | | | | | | MEDICAL | | | | | | CENTER - | | | | | | LABORATORY | | + + + + + + | MCHC | 34.1 | 32.0 - 36.0 | [facility] | | | | | g/dL | [facility] | | | | | | MEDICAL | | | | | | CENTER - | | | | | | LABORATORY | | + + + + + + | RDW-CV | 15.9 (H) | <15.0 % | [facility] | | | | | | [facility] | | | | | | MEDICAL | | | | | | CENTER - | | | | | | LABORATORY | | + + + + + + | RDW-SD | 53.4 (H) | 35.1 - 46.3 fL | [facility] | | | | | | [facility] | | | | | | MEDICAL | | | | | | CENTER - | | | | | | LABORATORY | | + + + + + + | Platelet | 94 (L) | 140 - 440 K/uL | [facility] | | | Count | | | [facility] | | | | | | MEDICAL | | | | | | CENTER - | | | | | | LABORATORY | | + + + + + + | MPV | 10.2 | 6.5 - 12.4 fL | [facility] | | | | | | [facility] | | | | | | MEDICAL | | | | | | CENTER - | | | | | | LABORATORY | | + + + + + + | % | 71.6 | 45.0 - 82.0 % | [facility] | | | Neutrophils | | | [facility] | | | | | | MEDICAL | | | | | | CENTER - | | | | | | LABORATORY | | + + + + + + | % | 11.5 (L) | 20.0 - 45.0 % | [...] + + + + | % | 3.1 | 0.0 - 5.0 % | [facility] | | | Eosinophils | | | [facility] | | | | | | MEDICAL | | | | | | CENTER - | | | | | | LABORATORY | | + + + + + + | % Basophils | 0.8 | 0.0 - 1.0 % | [facility] [...] + + + + | Absolute | 3.47 | 1.80 - 8.50 | [facility] | | | Neutrophils | | K/uL | [facility] | | | | | | MEDICAL | | | | | | CENTER - | | | | | | LABORATORY | | + + + + + + | Absolute | 0.56 (L) | 0.60 - 3.20 | [facility] | | | Lymphocytes | | K/uL | [facility] | | | | | | MEDICAL | | | | | | CENTER - | | | | | | LABORATORY | | + + + + + + | Absolute | 0.61 | 0.00 - 1.00 | [facility] | | | Monocytes | | K/uL | [facility] | | | | | | MEDICAL | | | | | | CENTER - | | | | | | LABORATORY | | + + + + + + | Absolute | 0.15 | 0.00 - 0.40 | [facility] | | | Eosinophils | | K/uL | [facility] | | | | | | MEDICAL | | | | | | CENTER - | | | | | | LABORATORY | | + + + + + + | Absolute | 0.04 | 0.00 - 0.10 | [facility] | [...] | nRBC | | K/uL | [facility] | [...] + | [facility] | [address] | [place] | [phone] | | [facility] | | [address] | | | - LABORATORY | | | | + + + + + Abdominal Paracentesis (11/01/2018 2:45 PM PDT) + + + | Narrative | Performed At | + + + | Reza Pittman MD 11/01/2018 19:59 Abdominal Paracentesis | | | Date/Time: 11/01/2018 16:40 Performed by: Reza Pittman MD | | | Authorized by: Reza Pittman MD Consent: Consent | | | obtained: Verbal and written Consent given by: Patient | | | Risks discussed: Bleeding, bowel perforation, infection and pain | | | Alternatives discussed: No treatment Pre-procedure details: | | | Procedure purpose: Therapeutic Preparation: Patient was | | | prepped and draped in usual sterile fashion Anesthesia: | | | Anesthesia method: Local infiltration Local anesthetic: | | | Lidocaine 1% WITH epi Procedure details: Needle gauge: 18 | | | Ultrasound guidance: yes Puncture site: L lower quadrant | | | Fluid removed amount: 3200 Fluid appearance: Meagan | | | Dressinx4 sterile gauze and adhesive bandage Post-procedure | | | details: Patient tolerance of procedure: Tolerated well, no | | | immediate complications | | + + + documented in this encounter Visit Diagnoses + + | Diagnosis | + + | Ascites of liver - Primary | + + documented in this encounter Administered Medications + +--------+ +------+------+------+ | Medication Order | MAR | Action | Dose | Rate | Site | | | Action | Date | | | | + +--------+ +------+------+------+ | midazolam (VERSED) 1 mg/mL | Given | 11/02/19 | 2 mg | | | | injection 2 mg 2 mg, | | 19 4:24 | | | | | Intravenous, ONCE, [facility] 11/01/18 at | | PM PDT | | | | | 1620, For 1 dose | | | | | | + +--------+ +------+------+------+ +---+---+ | | | +---+---+ documented in this encounter
--- OUTSIDE RECORDS SUMMARY | ~2019-09-02 | XMS | Encounter Summary ---
Demographics + + + | Address | [address] | | | [place] [address] | + + + | Home Phone | | + + + | Preferred Language | Unknown | + + + | Marital Status | | + + + | Muslim Affiliation | Unknown | + + + | Race | Unknown | + + + | Ethnic Group | Unknown | + + + Author + + + | Author | [facility] | | | and [place] | + + + | Organization | [facility] | | | and [place] | + + + | Address | Unknown | + + + | Phone | Unavailable | + + + Support + + + + + | Name | Relationship | Address | Phone | + + + + + | Zoran Whitley | ECON | [address] | | | | | [id number] | | | | | [address] | | + + + + + | [place] | ECON | [place] | | | | | [address] | | + + + + + Care Team Providers + +------+ + | Care Partition Notcher Name | Role | Phone | + [...] + + | 11/07/ | Emergency | [facility] | Velia Smith, | Inflammatory | | 2018 | | [facility] | MD [address] | arthritis (Primary | | | | CENTER [address] | [facility] | Dx); Acute pain of | | | | [place] | [place] [address] | right knee | | | | [address] | [phone] | | | | | [phone] | | | | | | | Kermit Silverio MD | | | | | | [address] | | | | | | [place], [place] | | | | | | [address] | | | | | | | [...] Care Everywhere.Knee Pain (Engl orion)Osteoarthritis, What Is (Mexican)documented in this encounter Medications at Time of [...] ST. | [address] | [place] | [phone] | | [facility] | | [address] | | | - LABORATORY | | [address] | [place] | [phone] | | [facility] | | [address] | | | - LABORATORY | | [...] + | [facility] | [address] | [place] | [phone] | | [facility] | | [address] | | | - LABORATORY | | [...] | % | [facility] | | | [facility] | | | [facility] | | [...] ST. | [address] | [place] | [phone] | | [facility] | | [address] | | | - LABORATORY | | [...] | to the ordering provider by the electronic technologist immediately | | | following the exam. Dictated and Signed by: Kunla Parrish MD | | | Electronically signed: [...] the ordering provider by the | | electronic technologist immediately following the exam. | | [...] + | [facility] | [address] | [place] | [phone] | | [facility] | | [address] | | | - LABORATORY | | [...] [address] | [place] | [phone] | | [facility] | | [address] | | | - LABORATORY | | [...] [address] | [place] | [phone] | | [facility] | | [address] | | | - LABORATORY | | [...] + | [facility] | [address] | [place] | [phone] | | [facility] | | [address] | | | - LABORATORY | | [...] [address] | [place] | [phone] | | [facility] | | [address] | | | - LABORATORY | | [...] ST. | [address] | [place], [place] | [phone] | | [facility] | | [address] | | | - LABORATORY | | [...] mL/min/1.73m2 | [facility] | | | [facility] | RATE,ESTIMATED | | MEDICAL | | | | mL/min/1.79k1Spms than | | CENTER - | | [...] ST. | [address] | [place] | [phone] | | [facility] | | [address] | | | - LABORATORY | | [...] [address] | [place] | [phone] | | [facility] | | [address] | | | - LABORATORY | | [...]
--- OUTSIDE RECORDS SUMMARY | ~2019-09-02 | XMS | Encounter Summary ---
Demographics + + + | Address | [address] | | | [place] [address] | + + + | Home Phone [...] + | Author | [facility] | | | and Keshawnana | + + + | Organization | [facility] | | | and [place]hawnana | + + + | Address | Unknown | + + + | Phone | Unavailable | + + + Support + + + + + | Name | Relationship | Address | Phone | + + + + + | Zoran Whitley | ECON | [address] | | | | | [id number], [place] | | | | | [address] | | + + + + + | Roseann Walker | ECON | [place] | | | | | [address] | | + + + + + Care Team Providers + +------+ + | Care Pipe Fitter Supervisor Name | Role | Phone | [...] | | | uncomplicate | [place], | [place] [address] | | | | | d | [place] [address] | Phone: | | | | | Procedures | Phone: | [phone] | | | | | FU | [phone] | Fax: | | | | | | Fax: | [phone] | | | | | | [phone] | | +--------+--------+ + + + + Encounter Details +--------+---------+ + + + | Date | Type | Department | Care Team | Description | +--------+---------+ + + + | 10/19/ | Office | [facility] | Duncan Bass, | Mild persistent | | 2018 | Visit | PULMONARY [address] | MD [address] | asthma without | | | | [place], | [place], [place] | complication | | | | [place] [address] | [address] | (Primary Dx); Need | | | | [phone] | | for pneumococcal | | | [...] more than every 4 hours, contact your [facility] provider or seek immediate medical attention. [...] turning ching or blue Date Last Reviewed: 08/29/[id number] [employer]. [address] [place] [address], [place] [address]. All righ ts reserved. This information is [...] feet at their own pace on level [facility] before becoming symptomatic. They are not [...] Osteoporosis Pneumonia Pneumonia 07/30/2017 admitted overnight at [facility] Sensorineural hearing loss Thrombocytopenia (HCC) Vitamin [...]
--- OUTSIDE RECORDS SUMMARY | ~2019-09-02 | XMS | Encounter Summary ---
Demographics + + + | Address | [address] | | | [place] [address] | + + + | Home Phone [...] Author | [facility] | | | and [place]eshawnana | + + + | Organization | [facility] | | | and [place]hawnana | + + + | Address | Unknown | + + + | Phone | Unavailable | + + + Support + + + + + | Name | Relationship | Address | Phone | + + + + + | Zoran Whitley | ECON | [address] | | | | | [id number], [place] | | | | | [address] | | + + + + + | Roseann Walker | ECON | [place] | | | | | [address] | | + + + + + Care Team Providers + +------+ + | Care Dsp Engineer Name | Role | Phone | [...] [phone] | | | | | | [place], [place] | | | | | | [address] | | | | | | [phone] | | | +--------+ + + + [...]
--- OUTSIDE RECORDS SUMMARY | ~2019-09-02 | XMS | Encounter Summary ---
Demographics + + + | Address | [address] | | | [place] [address] | + + + | Home Phone [...] | Author | [facility] | | | and Keshawnana | + + + | Organization | [facility] | | | and [place]ana | + + + | Address | Unknown | + + + | Phone | Unavailable | + + + Support + + + + + | Name | Relationship | Address | Phone | + + + + + | Zoran Whitley | ECON | [address] | | | | | [id number], [place] | | | | | [address] | | + + + + + | Roseann Walker | ECON | [place] | | | | | [address] | | + + + + + Care Team Providers + +------+ + | Care Lead Advisor Name | Role | Phone | + +------+ + PCP | Unavailable | + +------+ + Reason for Visit + + + | Reason | Comments | + + + | Follow-up | right upper extremity [facility] | + + + Encounter Details +--------+---------+ + + + | Date | Type | Department | Care Team | Description | +--------+---------+ + + + | 07/15/ | Office | [facility] | Caro Flores | Carpal tunnel | | 2016 | Visit | ORTHOPEDIC SURGERY | MD Mehul [address] [place] [address] | syndrome of right | | | | [address] [place] [address] | [place], [place] | wrist (Primary Dx) | | | | [place], [place] | [address] | | | | | [address] | | | | | | [phone] | | | +--------+---------+ + + + [...] - 07/16/2015 4:59 PM PDTSee soap note [id number].Electronically sign ed by Caro Flores MD at 07/16/2015 4:59 PM PDTCaro Flores MD - 4:58 PM PDT [facility] ORTHOPEDIC [facility]GERY [address] [place] [address] OFFICE NOTE CARO FLORES MD Patient: ALINE WHITLEY Admitting: MR #: [id number] LOC: PT TYPE: Adm Date: 07/16/2015 : 1955 Aline returns today for followup of her right upper extremity symptomatology. She has undergone an electrodiagnostic evaluation under the care of Dr. Simmons at the [facility] and was found to have moderate carpal [...] response to conservative measures including splinting. She, corbin re, will be scheduled for a right carpal tunnel release following financial clearance at a time that is convenient for her schedule. CARO FLORES MD Dictated by CARO FLORES MD 07/16/2015 16:58:46 Transcribed on 07/17/2015 11:51:58 by damian job# [id number] Confirmation #: [id number] cc: LANA MELCHOR MD documented in this encounter Plan of Treatment Not on filedocumented as of this encounter Visit Diagnoses + + | Diagnosis | + + | Carpal tunnel syndrome of right wrist - Primary Carpal tunnel syndrome | + + documented in this encounter
--- OUTSIDE RECORDS SUMMARY | ~2019-09-02 | XMS | Encounter Summary ---
Demographics + + + | Address | [address] | | | [place] [address] | + + + | Home Phone [...] + + + | Author | [facility] | | | and Keshawnana | + + + | Organization | [facility] | | | and [place]hawnana | + + + | Address | Unknown | + + + | Phone | Unavailable | + + + Support + + + + + | Name | Relationship | Address | Phone | + + + + + | Zoran Whitley | ECON | [address] | | | | | [id number], [place] | | | | | [address] | | + + + + + | Roseann Walker | ECON | [place] | | | | | [address] | | + + + + + Care Team Providers + +------+ + | Care Sales Representative Name | Role | Phone | [...] | | | | | | | [place] | | | | | | [...] Description | +--------+---------+ + + + | 10/13/ | Surgery | [facility] | Ramon Stokes | Right Carpal Tunnel | | 2016 | | [facility] | MD Mehul [address] | Release | | | | [address] | [place] | | | | | [place], [place] | [address] | | | | | [address] | | | | | | [phone] | | | +--------+---------+ + + + [...] + + + | Blood Pressure | 128/75 | 10/14/2015 9:55 AM | | | | | PDT | | + + + + + | Pulse | 85 | 10/14/2015 9:55 AM | | | | | PDT | | + + + + + | Temperature | 36 C (96.8 F) | 10/14/2015 8:28 AM | | | | | PDT | | + + + + + | Respiratory Rate | 20 | 10/14/2015 9:55 AM | | | | | PDT | | + + + + + | Oxygen Saturation | 96% | 10/14/2015 9:55 AM | | | | | PDT | | + + + + + | Inhaled Oxygen | - | - | | | Concentration | | | | + + + + + | Weight | 106.6 kg (235 lb) | 10/14/2015 7:04 AM | | | | | PDT | | + + + + + | Height | 162.6 cm (5' 4.02") | 10/14/2015 7:04 AM | | | | | PDT | | + + + + + | Body Mass Index | 40.32 | 10/14/2015 7:04 AM | | | | | PDT | | + + + + + documented in this encounter Discharge Instructions Instructions Sania Monteiro RN - 10/14/2015 Please keep appointment in Dr Stokes's office as already scheduled. Keep bandages clean and dry Move Fingers frequently Bandages will be removed within one or two days in our office and you will be placed in a w rist brace If you have any questions, comments or concerns to contact our office. Do not exceed 4,000 mg of acetaminophen (Tylenol) per day. Hydrocodone-acetaminophen ([place] ) and Oxycodone-acetaminophen (Percocet) have 325 mg acetaminophen per tablet. Regular stren gth acetaminophen is 325 mg per tablet. Extra strength has 500 mg per tablet. Do not consume alcohol while taking opioid mediations. If constipation arises, try docusate-senna one tablet twice daily; milk of magnesia 30 mL o nce each night; or Miralax one capful (17 grams) dissolved in half a cup of water once daily for 3 days. If constipation does not resolve within 3 days after discharge, contact the doc tor's office. Carpal Tunnel Release Surgery Surgery may be done if your carpal tunnel syndrome (CTS) symptoms become severe. Or, you ma y have surgery if no other treatment brings relief. There are 2 types of CTS procedures. You will be told about the one you will have. You ll also be instructed how to prepare for it . The goals of surgery Two types of surgery open and endoscopic are used to treat CTS. With open surgery, your surgeon makes one incision in your palm. Standard surgical tools are used. With endoscopic surgery, one or two small incisions may be made in your hand. A scope (w ith a very small camera attached) and tools are inserted under the carpal ligament. The surg inga then operates while watching images on a video screen. No matter which one you have, the goal remains the same: Your surgeon will relieve pressure on the median nerve. To do this, the transverse carpal ligament is cut (released). After surgery If you ve had carpal tunnel surgery, you will spend a few hours resting before you go wes e. The nerve sensation and circulation in your hand will be checked at this time. For the sa fest healing, keep the following in mind. Keep your hand raised above heart level. This will help reduce swelling. Limit hand and wrist use as instructed. A wrist brace may be required. Take any pain medication as directed. Do hand exercises as directed by your surgeon or therapist. When to call the surgeon Call your surgeon if you notice any of the following: White or pale-blue hand or nails (If you pinch your skin or nail and the color doesn t return) Pain that is not relieved by prescribed medicine Loss of sensation or excess swelling in hand or fingers Fever over 100.4F (38C) [id number] [employer]. [address] [place] [address]. All [facility] ts reserved. This information is not intended as a substitute for professional medical care. Always follow your healthcare professional's instructions. documented in this encounter Medications at Time [...] | + +--------+ + + + | RELEASE CARPAL | | 10/14/2015 | Carpal tunnel | | | TUNNEL | | 7:33 AM | syndrome of right | | | | | PDT | wrist | | + +--------+ + + + | PTT | Routin | 10/14/2015 | Hepatic cirrhosis, | Results for this | | | e | 7:04 AM | unspecified hepatic | procedure are in the | | | | PDT | cirrhosis type | results section. | | | | | (HCC) Diuretics | | | | | | causing adverse | | | | | | effect in | | | | | | therapeutic use, | | | | | | initial encounter | | | | | | Thyroid dysfunction | | | | | | Carpal tunnel | | | | | | syndrome, | | | | | | unspecified | | | | | | laterality | | + +--------+ + + + | PROTIME INR | Routin | 10/14/2015 | Hepatic cirrhosis, | Results for this | | | e | 7:04 AM | unspecified hepatic | procedure are in the | | | | PDT | cirrhosis type | results section. | | | | | (HCC) Diuretics | | | | | | causing adverse | | | | | | effect in | | | | | | therapeutic use, | | | | | | initial encounter | | | | | | Thyroid dysfunction | | | | | | Carpal tunnel | | | | | | syndrome, | | | | | | unspecified | | | | | | laterality | | + +--------+ + + + | HEPATIC FUNCTION | Routin | 10/14/2015 | Hepatic cirrhosis, | Results for this | | PANEL | e | 7:04 AM | unspecified hepatic | procedure are in the | | | | PDT | cirrhosis type | results section. | | | | | (HCC) Diuretics | | | | | | causing adverse | | | | | | effect in | | | | | | therapeutic use, | | | | | | initial encounter | | | | | | Thyroid dysfunction | | | | | | Carpal tunnel | | | | | | syndrome, | | | | | | unspecified | | | | | | laterality | | + +--------+ + + + | BASIC METABOLIC | Routin | 10/14/2015 | Hepatic cirrhosis, | Results for this | | PANEL | e | 7:04 AM | unspecified hepatic | procedure are in the | | | | PDT | cirrhosis type | results section. | | | | | (HCC) Diuretics | | | | | | causing adverse | | | | | | effect in | | | | | | therapeutic use, | | | | | | initial encounter | | | | | | Thyroid dysfunction | | | | | | Carpal tunnel | | | | | | syndrome, | | | | | | unspecified | | | | | | laterality | | + +--------+ + + + | PLATELET COUNT | Routin | 10/14/2015 | Hepatic cirrhosis, | Results for this | | | e | 7:03 AM | unspecified hepatic | procedure are in the | | | | PDT | cirrhosis type | results section. | | | | | (HCC) Diuretics | | | | | | causing adverse | | | | | | effect in | | | | | | therapeutic use, | | | | | | initial encounter | | | | | | Thyroid dysfunction | | | | | | Carpal tunnel | | | | | | syndrome, | | | | | | unspecified | | | | | | laterality | | + +--------+ + + + | HEMOGLOBIN | Routin | 10/14/2015 | Hepatic cirrhosis, | Results for this | | | e | 7:03 AM | unspecified hepatic | procedure are in the | | | | PDT | cirrhosis type | results section. | | | | | (HCC) Diuretics | | | | | | causing adverse | | | | | | effect in | | | | | | therapeutic use, | | | | | | initial encounter | | | | | | Thyroid dysfunction | | | | | | Carpal tunnel | | | | | | syndrome, | | | | | | unspecified | | | | | | laterality | | + +--------+ + + + documented in this encounter Results PTT (10/14/2015 7:04 AM PDT) + +-------+ + + + | Component | Value | Ref Range | Performed | Pathologist | | | | | At | Signature | + +-------+ + + + | aPTT | 29 | 22 - 36 seconds | [facility] | | | | | [...] [address] | [place] | [phone] | | [facility] | | [address] | | | - LABORATORY | | | | + + + + + Protime INR (10/14/2015 7:04 AM PDT) + + + + + + | Component | Value | Ref Range | Performed | Pathologist | | | | | At | Signature | + + + + + + | Prothrombin | 15.1 (H) | 11.3 - 13.9 | [facility] | | | Time | | seconds | [facility] | | | | | | [facility]ICAL | | | | | | CENTER - | | | | | | LABORATORY | | + + + + + + | INR | 1.13 (H)Comment: Usual | 0.90 - 1.10 | [facility] | | | | Oral [...] ST. | [address] | [place], [place] | [phone] | | [facility] | | [address] | | | - LABORATORY | | | | + + + + + Hepatic Function Panel (10/14/2015 7:04 AM PDT) + +---------+ + + + | Component | Value | Ref Range | Performed | Pathologist | | | | | At | Signature | + +---------+ + + + | Bilirubin | 1.2 | 0.1 - 1.5 mg/dL | [facility] | | | Total | | | [facility] | | | | | | [facility]ICAL | | | | | | CENTER - | | | | | | LABORATORY | | + +---------+ + + + | Total | 7.4 | 6.0 - 7.8 g/dL | [facility] | | | Protein | | | [facility] | | | | | | MEDICAL | | | | | | CENTER - | | | | | | LABORATORY | | + +---------+ + + + | Albumin | 3.2 | 3.2 - 5.0 g/dL | [facility] | | | | | | [facility] | | | | | | [facility]ICAL | | | | | | CENTER - | | | | | | LABORATORY | | + +---------+ + + + | AST | 38 | 10 - 42 U/L | [facility] | | | | | | [facility] | | | | | | [facility] | | | | | | CENTER - | | | | | | LABORATORY | | + +---------+ + + + | ALT | 20 | 6 - 45 U/L | [facility] | | | | | | [facility] | | | | | | MEDICAL | | | | | | CENTER - | | | | | | LABORATORY | | + +---------+ + + + | Alkaline | 70 | 40 - 110 U/L | [facility] | | | Phosphatase | | | [facility] | | | | | | MEDICAL | | | | | | CENTER - | | | | | | LABORATORY | | + +---------+ + + + | Globulin | 4.2 (H) | 2.1 - 3.8 g/dL | [facility] | | | | | | [facility] | | | | | | [facility]ICAL | | | | | | CENTER - | | | | | | LABORATORY | | + +---------+ + + + | Albumin/Mary Carmen | 0.8 | 0.8 - 2.0 | [facility] | | | bulin Ratio | | | [facility] | | | | | | MEDICAL | | | | | | CENTER - | | | | | | LABORATORY | | + +---------+ + + + | Bilirubin, | 0.20 | 0.00 - 0.20 | [facility] | | | Direct | | mg/dl | [facility] | | | | [...] ST. | [address] | [place] | [phone] | | [facility] | | [address] | | | - LABORATORY | | | | + + + + + Basic Metabolic Panel (10/14/2015 7:04 AM PDT) + + + + + + | Component | Value | Ref Range | Performed | Pathologist | | | | | At | Signature | + + + + + + | Na | 138 | 136 - 149 | [facility] | | | | | mmol/L | [facility] | | | | | | MEDICAL | | | | | | CENTER - | | | | | | LABORATORY | | + + + + + + | K | 3.8 | 3.5 - 5.1 | [facility] | [...] + + | CO2 | 25 | 24 - 31 mmol/L | [facility] [...] + + + + | Glucose | 118 (H) | 70 - 109 mg/dL | [facility] | | | | | | [facility] | | | | | | MEDICAL | | | | | | CENTER - | | | | | | LABORATORY | | + + + + + + | BUN | 12 | 7 - 18 mg/dL | [facility] | | | | | | [facility] | | | | | | [facility]ICAL | | | | | | C[facility] - | | | | | | LABORATORY | | + + + + + + | Creatinine | 0.91 | 0.60 - 1.30 | [facility] | | | | | mg/dL | [facility] | | | | | | MEDICAL | | | | | | CENTER - | | | | | | LABORATORY | | + + + + + + | eGFR if not | >60Comment: GLOMERULAR | >=60 | [facility] | | | | FILTRATION | mL/min/1.73m2 | [facility] | | | [place] | RATE,ESTIMATED | | MEDICAL | | | | mL/min/1.84k2Qzkx than | | CENTER - | | [...] + + + + | Calcium | 8.9 | 8.3 - 10.5 | [facility] | | | | | mg/dL | [facility] | | | | | | MEDICAL | | | | | | CENTER - | | | | | | LABORATORY | | + + + + + + | BUN/Creatin | 13.2 | | [facility] | | | ine [...] + | [facility] | [address] | [place] | [phone] | | [facility] | | [address] | | | - LABORATORY | | | | + + + + + Platelet Count (10/14/2015 7:03 AM PDT) + +--------+ + + + | Component | Value | Ref Range | Performed | Pathologist | | | | | At | Signature | + +--------+ + + + | Platelet | 87 (L) | 140 - 440 K/uL | [facility] | | | Count | | | [facility] | | | | | | MEDICAL | | | | | | CENTER - | | | | | | LABORATORY | | + +--------+ + + + | MPV | 8.6 | fL | [facility] | | | | | [...] [address] | [place] | [phone] | | [facility] | | [address] | | | - LABORATORY | | | | + + + + + Hemoglobin (10/14/2015 7:03 AM PDT) + +-------+ + + + | Component | Value | Ref Range | Performed | Pathologist | | | | | At | Signature | + +-------+ + + + | Hemoglobin | 14.2 | 11.5 - 16.0 | [facility] | [...] [address] | [place] | [phone] | | [facility] | | [address] | | | - LABORATORY | | | | + + + + + documented in this encounter Visit Diagnoses + + | Diagnosis | + + | Carpal tunnel syndrome of right wrist Carpal tunnel syndrome | + + documented in this encounter Administered Medications + +---------+ +------+------+------+ | Medication Order | MAR | Action | Dose | Rate | Site | | | Action | Date | | | | + +---------+ +------+------+------+ | lactated ringers (LR) infusion | New Bag | 10/14/19 | | | | | at 10-100 mL/hr, Intravenous, | | 16 7:47 | | | | | CONTINUOUS, Starting 10/14/15 | | AM PDT | | | | | at 0700, TKO., Pre-op | | | | | | + +---------+ +------+------+------+ +---------+ +---+ +---+ | New Bag | 10/14/19 | | 50 mL/hr | | | | 16 6:58 | | | | | | AM PDT | | | | +---------+ +---+ +---+ +---+---+ | | | +---+---+ + +-------+ +-------+---+ + | ropivacaine (NAROPIN) 5 mg/mL | Given | 10/14/19 | 7 mLs | | Surgical | | (0.5%) injection PRN, Starting | | 16 8:14 | | | Site | | 10/14/15 at 0814, Intra-op | | AM PDT | | | | + +-------+ +-------+---+ + +---+---+ | | | +---+---+ documented in this encounter
--- OUTSIDE RECORDS SUMMARY | ~2019-09-02 | XMS | Encounter Summary ---
Demographics + + + | Address | [address] | | | [place] [address] | + + + | Home Phone [...] | Located [facility] | | | and Keshawnana | + + + | Organization | Loc[facility] | | | and Keshawnana | + + + | Address | Unknown | + + + | Phone | Unavailable | + + + Support + + + + + | Name | Relationship | Address | Phone | + + + + + | Zoran Whitley | ECON | [address] | | | | | [id number], [place] | | | | | [address] | | + + + + + | Roseann Walker | ECON | [place] | | | | | [address] | | + + + + + Care Team Providers + +------+ + | Care Parks Worker Name | Role | Phone | + +------+ + | Sri Razo | PCP | | + +------+ + Reason for Visit + + + | Reason | Comments | + + + | Weakness | Pt seen at [facility] and was referred here. Sx x2 | | | days. Also reports swelling. | + + + | Dizziness | | + + + Encounter Details +--------+ + + + + | Date | Type | Department | Care Team | Description | +--------+ + + + + | 03/27/ | Emergency | [facility] | Jacob Bhatia | Lower extremity | | 2019 | | MEDICAL CENTER | DO Ángel [address] | edema (Primary Dx); | | | | EMERGENCY CENTER | [address] | Chronic liver | | | | [address] | [place], [place] | failure without | | | | [place], [place] | [address] | hepatic coma (HCC); | | | | [address] | [phone] | Pancytopenia (HCC) | | | | [phone] | | | +--------+ + + + [...] attachments cannot be sent through Care Everywhere.Lymphedema ([facility])Liver Disease, Tests (Bulgarian)documented in this encounter Medications at Time of [...] | | | MRN: | | | [id number] | | | [id number] | | | riteri | | | [...] Acuity | | | | | | [place] | | | | | | [...] | | | St. | | | [place] | | | y | | | [...] | | | St. | | | [place] | | | y H. | | [...] | | | 2019 | | | [place] | | | | | | [...] | | | St. | | | [place] | | | y H. | | | [place] | | | [place] | | | Emerge | | | ncy | | | Chief | | | Compla | | | int: | | | SHAKY | | | Sep | | | 1, | | | 2019 | | | [facility] | | [facility] | | | [place] | | | y H. | | [...] | | | St. | | | [place] | | | y H. | | [...] | | | St. | | | [place] | | | y H. | | [...] | | | 2019 | | | [place] | | | | | | [...] | | | St. | | | [place] | | | y H. | | [...] | | | St. | | | [place] | | | y H. | | [...] MD | | | | | | Quality Control Tester | | | al | | | [...] | | N, | | | SENIOR GIS ANALYST-C | | | Nurse | | | Practi | | | tioner | | | (811) | | | | | | [phone] [...] at | | | | | | [facility];[address] | | | | | | [address];[place] [address] | | | | + + + + + + + + | Specimen | + + | Blood | + + + + + + + | Performing | Address | City/State/Zipcode | Phone Number | | Organization | | | | + + + + + | [facility] | [address] | [place] [address] | [phone] | + + + + + Protime [...] | | | | | performed at [facility] | | | | | | [facility];[place], [place] | | | | | | [address] | | | | + + + + + + + + | Specimen | + + | Blood | + + + + + + + | Performing | Address | City/State/Zipcode | Phone Number | | Organization | | | | + + + + + | [facility] | [address] | [place] [address] | [phone] | + + + + + Lipase (03/27/2019 2:44 PM PST) + + + + + + | Component | Value | Ref Range | Performed | Pathologist | | | | | At | Signature | + + + + + + | Lipase | 43Comment: Testing | 12 - 53 U/L | [facility] | | | | performed at [facility];[address] | | LABORATORY | | | | [address];[place] | | | | | | [address] | | | | + + + + + + + + | Specimen | + + | Blood | + + + + + + + | Performing | Address | City/State/Zipcode | Phone Number | | Organization | | | | + + + + + | [facility] | [address] | [place] [address] | [phone] | + + + + + Comprehensive [...] | >60Comment: GFR <60: | >60 | [facility] | | | GFR | CHRONIC KIDNEY [...] | | | | | performed at [facility];[address] | | | | | | [facility];[place], [place] | | | | | | [address] | | | | + + + + + + + + | Specimen | + + | Blood | + + + + + + + | Performing | Address | City/State/Zipcode | Phone Number | | Organization | | | | + + + + + | [facility] | [address] | [place] [address] | [phone] | + + + + + CBC [...] + | Platelet | DECREASEDComment: | | SYD | | | Estimate | Testing performed at | | LABORATORY | | | | [facility];[address] | | | | | [address];[place] [address] | | | | + + + + + + + + | Specimen | + + | Blood | + + + + + + + | Performing | Address | City/State/Zipcode | Phone Number | | Organization | | | | + + + + + | [facility] | [address] | [place] [address] | [phone] | + + + + + B [...] | LABORATORY | | | | [address] [facility] [address] | | | | | | Blvd;[place] [address] | | | | + + + + + + + + | Specimen | + + | Blood | + + + + + + + | Performing | Address | City/State/Zipcode | Phone Number | | Organization | | | | + + + + + | [facility] | [address] | [place] [address] | [phone] | + + + + + ECG [...] (500), | | | | | | editor publications Marco Lowry | | | | | [...] - 1.030 | [facility] | | | [place], | | | LABORATORY | | | [...] | | | Urine | performed at [facility];[address] | | LABORATORY | | | | [address];[place], [place] | | | | | | [address] | | | | + + + [...] | + + + + + | [facility] | [address] | [place] [address] | [phone] | + + + + + documented in this encounter Visit Diagnoses + + | Diagnosis | + + | Lower extremity edema - Primary Edema | + + | Chronic liver failure without hepatic coma (HCC) | + + | Pancytopenia (HCC) Other pancytopenia | + + documented in this encounter
--- OUTSIDE RECORDS SUMMARY | ~2019-09-02 | XMS | Encounter Summary ---
Demographics + + + | Address | [address] | | | [place] [address] | + + + | Home Phone | | + + + | Preferred Language | Unknown | + + + | Marital Status | | + + + | Baptist Affiliation | Unknown | + + + | Race | Unknown | + + + | Ethnic Group | Unknown | + + + Author + + + | Author | [facility] | | | and Keshawnana | + + + | Organization | [facility] | | | and Keshawnana | + + + | Address | Unknown | + + + | Phone | Unavailable | + + + Support + + + + + | Name | Relationship | Address | Phone | + + + + + | Zoran Whitley | ECON | [address] | | | | | [id number], [place] | | | | | [address] | | + + + + + | Roseann Walker | ECON | [place] | | | | | [address] | | + + + + + Care Team Providers + +------+ + | Care Lead Engineer Name | Role | Phone | [...] | | | | | | | MA REVISE | | | | | | [...] + + + + | 10/13/ | [facility] | [facility] | Ramon Stokes | Carpal tunnel | | 2016 | Encounter | MED CTR OR INTRA OP | Mehul, [address] | syndrome on right | | | | [address] | [place] | (Primary Dx); | | | | [place] | [address] | Hepatic cirrhosis, | | | | [address] | | unspecified hepatic | | | | [phone] | | cirrhosis type | | | | | | (HCC); Diuretics | | | | | | [...] | | | | | laterality | +--------+ + + + + Social [...] mg of acetaminophen (Tylenol) per day. Hydrocodone-acetaminophen ([place] ) and Oxycodone-acetaminophen (Percocet) have 325 mg acetaminophen per tablet. Regular stren [facility] acetaminophen is 325 mg per tablet. Extra [...] within 3 days after discharge, contact the aminah vail's office. Carpal Tunnel Release Surgery Surgery may [...] hand or fingers Fever over 100.4F (38C) [id number] [employer]. [address] [place] [address]. All righ ts reserved. This information is [...] + +---------+ + + | azaTHIOprine | 05/02 tablet by mouth | | 0 | [...] 29 | 22 - 36 seconds | [facility] [...] [address] | [place] | [phone] | | [facility] | | [address] | | | - LABORATORY | | [...] [address] | [place] | [phone] | | [facility] | | [address] | | | - LABORATORY | | [...] | Direct | | mg/dl | [facility] | | | | [...] + | [facility] | [address] | [place] | [phone] | | [facility] | | [address] | | | - LABORATORY | | [...] 12 | 7 - 18 mg/dL | [facility] | | | | | | [facility] | | | | | | MEDICAL | | | | | | CENTER - | | | | | | LABORATORY | | + + + + + + | Creatinine | 0.91 | 0.60 - 1.30 | [facility] | | | | | mg/dL | [facility] | | | | | | MEDICAL | | | | | | CENTER - | | | | | | LABORATORY | | + + + + + + | eGFR if not | >60Comment: GLOMERULAR | >=60 | [facility] | | | | FILTRATION | mL/min/1.73m2 | [facility] | | | [place] | RATE,ESTIMATED | | MEDICAL | | | | mL/min/1.19u2Mwst than | | CENTER - | | [...] + | BUN/Creatin | 13.2 | | [facility] | | | ine Ratio | | [...] [address] | [place] | [phone] | | [facility] | | [address] | | | - LABORATORY | | [...] | MPV | 8.6 | fL | [facility] | | | [...] [address] | [place] | [phone] | | [facility] | | [address] | | | - LABORATORY | | [...] | | | | | g/dL | [facility] | | | | | | MEDICAL [...] [address] | [place] | [phone] | | [facility] | | [address] | | | - LABORATORY | | | | + + + + + documented in this encounter Visit Diagnoses + + | Diagnosis | + + | Carpal tunnel syndrome on right - Primary Carpal tunnel syndrome | + + | Hepatic cirrhosis, unspecified hepatic cirrhosis type (HCC) | + + | Diuretics causing adverse effect in therapeutic use, initial encounter | + + | Thyroid dysfunction Unspecified disorder of thyroid | + + | Carpal tunnel syndrome, unspecified laterality | + + documented in this encounter [...] +---+ +---+ +---+---+ | | | +---+---+ documented in this encounter
--- OUTSIDE RECORDS SUMMARY | ~2019-09-02 | XMS | Encounter Summary ---
Demographics + + + | Address | [address] | | | [place] [address] | + + + | Home Phone [...] + | Author | [facility] | | | and Keshawnana | + + + | Organization | [facility] | | | and Keshawnana | + + + | Address | Unknown | + + + | Phone | Unavailable | + + + Support + + + + + | Name | Relationship | Address | Phone | + + + + + | Zoran Whitley | ECON | [address] | | | | | [id number], [place] | | | | | [address] | | + + + + + | Roseann Monolongsahil | ECON | [place] | | | | | [address] | | + + + + + Care Team Providers + +------+ + | Care Dealer Sales Manager Name | Role | Phone | [...] + + | 01/13/ | Emergency | [facility] | Ronald Kasper MD | Other ascites | | 2019 | | [facility] CTR EM[facility] | [address] | (Primary Dx); | | | | CENTER [address] | [place] | Abdominal pain, | | | | [place], [place] | [address] | unspecified | | | | [address] | | abdominal location | | | | [phone] | | | +--------+ + + + [...] Discharge Instructions Instructions Ronald Kasper MD - 01/[place]/2019[place] emergency department by 9 pm to confirm appo intment for paracentesis if you have not received a phone call by then. Follow up with [facility] provider as needed. Do not drink or drive while on the pain medication. AttachmentsThe following attachments cannot be sent through Care Everywhere.Ascites (Englis h)Acetaminophen; Hydrocodone tablets or capsules (Guinean)documented in this encounter Medications at Time of [...] | | n - | | | 01/13/ | | | 2019 | | | 6:23 | | | [...] | | | ON?/ | | | 15 | | | 9 | | | 18:22? | | | HOPTOW | | | IT, | | | MARISOL | | | INE?MR | | | N: | | | [id number] | | | [id number] | | | riteri | | | [...] | | | gical7 | | | /02/16 | | | 12:00 | | | AM | | | [facility] | [facility] | | | [place] | | | y | | | [...] | | | St. | | | [place] | | | y | | | [...] | | | St. | | | [place] | | | y | | | [...] | | | St. | | | [place] | | | y | | | [...] | | | St. | | | [place] | | | y H. | | | [place] | | | [place] | | | Emerge | | | ncy | | | Chief | | | Compla | | | int: | | | SHAKY | | | Sep | | | 1, | | | 2019 | | | [facility] | | | [facility] | | | [place] | | | y H. | | [...] | | | St. | | | [place] | | | y H. | | [...] | | | St. | | | [place] | | | y H. | | [...] | | | St. | | | [place] | | | y H. | | [...] | | | St. | | | [place] | | | y H. | | [...] | | | St. | | | [place] | | | y H. | | [...] | | | St. | | | [place] | | | y H. | | [...] | | | St. | | | [place] | | | y H. | | [...] | | | St. | | | [place] | | | y H. | | [...] | | | 2018 | | | [facility] | | | | | | Health [...] | | | St. | | | [place] | | | y H. | | [...] MD | | | | | | Educational Administration Teacher | | | al | | | [...] | | | N, | | | WRAPPER CASHIER-C | | | Nurse | | | [...] | | | [id number] | | | [id number] | | | 09 | | | [...] + | [facility] | [address] | [place] | [phone] | | [facility] | | [address] | | | - LABORATORY | | [...] | | Oral Anticoagulation | | [facility] | | | | Range: 2.0 [...] + | [facility] | [address] | [place] | [phone] | | [facility] | | [address] | | | - LABORATORY | | [...] M[facility] | | | | | | ST. [...] | + + + + + | [facility] | [address] | [place] | [phone] | | [facility] | | [address] | | | - LABORATORY | | [...] 4 | 3 - 16 mmol/L | [facility] | | | | | | [facility] | | | | | | MEDICAL | | | | | | CENTER - | | | | | | LABORATORY | | + + + + + + | Glucose | 133 (H) | 60 - 106 mg/dL | [facility] | | | | | [...] mL/min/1.73m2 | [facility] | | | [place] | RATE,ESTIMATED | | MEDICAL | | | | mL/min/1.40i2Yuaz than | | CENTER - | | [...] + | [facility] | [address] | [place] | [phone] | | [facility] | | [address] | | | - LABORATORY | | | | + + + + + CBC with Differential (01/13/2019 7:53 PM PDT) + + + + + + | Component | Value | Ref Range | Performed | Pathologist | | | | | At | Signature | + + + + + + | WBC | 5.5 | 4.0 - 11.0 K/uL | [facility] [...] | | | | M/uL | [facility] | | | | [...] | Eosinophils | | K/uL | [facility] | [...] ST. | [address] | [place] | [phone] | | [facility] | | [address] | | | - LABORATORY | | [...] | | | | | Patient Address: [address] [place] [address] | | | | | | | [place] [address], | | | | | | + + + + +------+------+ +---+---+ | | | +---+---+ documented in this encounter
--- OUTSIDE RECORDS SUMMARY | ~2019-09-02 | XMS | Encounter Summary ---
Demographics + + + | Address | [address] | | | [place] [address] | + + + | Home Phone | | + + + | Preferred Language | Unknown | + + + | Marital Status | | + + + | Orthodox Affiliation | Unknown | + + + | Race | Unknown | + + + | Ethnic Group | Unknown | + + + Author + + + | Author | [facility] | | | and Keshawnana | + + + | Organization | [facility] | | | and Keshawnana | + + + | Address | Unknown | + + + | Phone | Unavailable | + + + Support + + + + + | Name | Relationship | Address | Phone | + + + + + | Zoran Whitley | ECON | [address] | | | | | [id number], [place] | | | | | [address] | | + + + + + | Roseann Walker | ECON | [place] | | | | | [address] | | + + + + + Care Team Providers + +------+ + | Care Neurophysiology Tech Name | Role | Phone | [...] | | [address] [place] | [place] [address] | | | | | [place] [address] | | | | | | [phone] | | | +--------+ + + + [...]
--- OUTSIDE RECORDS SUMMARY | ~2019-09-02 | XMS | Encounter Summary ---
Demographics + + + | Address | [address] | | | [place] [address] | + + + | Home Phone [...] | [facility] | | | and Keshawnana | + + + | Organization | [facility] | | | and Keshawnana | + + + | Address | Unknown | + + + | Phone | Unavailable | + + + Support + + + + + | Name | Relationship | Address | Phone | + + + + + | Zoran Whitley | ECON | [address] | | | | | [id number], [place] | | | | | [address] | | + + + + + | Roseann Monolongsahil | ECON | [place] | | | | | [address] | | + + + + + Care Team Providers + +------+ + | Care Online Community Manager Name | Role | Phone | [...] + + | 08/13/ | Emergency | [facility] | Jeffrey Augustin | Closed fracture of | | 2018 | | MED CTR EMERGENCY | MD Anjum [address] | multiple ribs of | | | | CENTER [address] | [address] [place] | left side, initial | | | | [place], [place] | [place] [address] | encounter (Primary | | | | [address] | [phone] | Dx); Acute pain; | | | | [phone] | | Fall, initial | | | [...] report was | | | sent by [facility] with no significant discrepancy. | | | [...] | A preliminary report was sent by [facility] with no significant | | discrepancy. | [...] | | | | | | [employer] | | | | | [...] [facility]. | [address] | [place] | [phone] | | [facility] | | [address] | | | - LABORATORY | | [...] ST. | [address] | [place], [place] | [phone] | | [facility] | | [address] | | | - LABORATORY | | [...] | 1.19 | 0.60 - 1.30 | [facility] | | | | | mg/dL | [facility] | | | | | | MEDICAL | | | | | | CENTER - | | | | | | LABORATORY | | + + + + + + | eGFR if not | 46 (L)Comment: | >=60 | [facility] | | | | GLOMERULAR FILTRATION | mL/min/1.73m2 | [facility] | | | AZER[place] | RATE,ESTIMATED | | MEDICAL | | | | mL/min/1.09a2Vdmy than | | CENTER - | | [...] | 9.0 | 8.3 - 10.5 | [facility] | | | | | mg/dL | [facility] | | | | | | MEDICAL | | | | | | CENTER - | | | | | | LABORATORY | | + + + + + + | Albumin | 2.6 (L) | 3.2 - 5.0 g/dL | [facility] [...] | an appended report. | | [facility] | | | | These results have [...] | | appended report. These | | [facility] | | | | results have been [...] Phosphatase | appended report. These | | [facility] | | | | results have been [...] [address] | [place] | [phone] | | [facility] | | [address] | | | - LABORATORY | | [...] | | | | M/uL | [facility] | | | | [...] [address] | [place] | [phone] | | [facility] | | [address] | | | - LABORATORY | | [...] | | | | JOSELUIS PINON MD ([id number]) | | | | | | on [...]
--- OUTSIDE RECORDS SUMMARY | ~2019-09-02 | XMS | Encounter Summary ---
Demographics + + + | Address | [address] | | | [place] [address] | + + + | Home Phone [...] | Author | [facility] | | | and Keshawnana | + + + | Organization | [facility] | | | and Keshawnana | + + + | Address | Unknown | + + + | Phone | Unavailable | + + + Support + + + + + | Name | Relationship | Address | Phone | + + + + + | Zoran Whitley | ECON | [address] | | | | | [id number], [place] | | | | | [address] | | + + + + + | Roseann Walker | ECON | [place] | | | | | [address] | | + + + + + Care Team Providers + +------+ + | Care Storage Receipt Poster Name | Role | Phone | + [...] | | [address] [place] | [place] [address] | | | | | [place] [address] | | | | | | [phone] | | | +--------+ + + + [...]
--- OUTSIDE RECORDS SUMMARY | ~2019-09-02 | XMS | Encounter Summary ---
Demographics + + + | Address | [address] | | | [place] [address] | + + + | Home Phone [...] Author | [facility] | | | and Keshawnana | + + + | Organization | [facility] | | | and Keshawnana | + + + | Address | Unknown | + + + | Phone | Unavailable | + + + Support + + + + + | Name | Relationship | Address | Phone | + + + + + | Zoran Whitley | ECON | [address] | | | | | [id number], [place] | | | | | [address] | | + + + + + | Roseann Walker | ECON | [place] | | | | | [address] | | + + + + + Care Team Providers + +------+ + | Care Spooler Operator Automatic Name | Role | Phone | [...] | | [address] [place] | [place] [address] | | | | | [place] [address] | | | | | | [phone] | | | +--------+ + + + [...]
--- OUTSIDE RECORDS SUMMARY | ~2019-09-02 | XMS | Encounter Summary ---
Demographics + + + | Address | [address] | | | [place] [address] | + + + | Home Phone | | + + + | Preferred Language | Unknown | + + + | Marital Status | | + + + | Presybeterian Affiliation | Unknown | + + + | Race | Unknown | + + + | Ethnic Group | Unknown | + + + Author + + + | Author | [facility] | | | and Keshawnana | + + + | Organization | [facility] | | | and Keshawnana | + + + | Address | Unknown | + + + | Phone | Unavailable | + + + Support + + + + + | Name | Relationship | Address | Phone | + + + + + | Zoran Whitley | ECON | [address] | | | | | [id number], [place] | | | | | [address] | | + + + + + | Roseann Walker | ECON | [place] | | | | | [address] | | + + + + + Care Team Providers + +------+ + | Care Developer Automatic Name | Role | Phone | + +------+ + PCP | Unavailable | + +------+ + Encounter Details +--------+ + + + + | Date | Type | Department | Care Team | Description | +--------+ + + + + | 08/14/ | Hospital | [facility] | Russ, | VIR HEP NEC W/O COMA | | 2003 | Encounter | [facility] | MD Uma [address] | W HEP C [facility] | | | | CLINICAL DECISION | Kaitlynn Judgepaola | | | | | [address] | [place] [address] | | | | | [place], [place] | [phone] | | | | | [address] | | | | | | [phone] | | | +--------+ + + + [...]
--- OUTSIDE RECORDS SUMMARY | ~2019-09-02 | XMS | Encounter Summary ---
Demographics + + + | Address | [address] | | | [place] [address] | + + + | Home Phone [...] | [facility] | | | and Keshawnana | + + + | Organization | [facility] | | | and Keshawnana | + + + | Address | Unknown | + + + | Phone | Unavailable | + + + Support + + + + + | Name | Relationship | Address | Phone | + + + + + | Zoran Whitley | ECON | [address] | | | | | [id number], [place] | | | | | [address] | | + + + + + | Roseann Walker | ECON | [place] | | | | | [address] | | + + + + + Care Team Providers + +------+ + | Care Crocheter Name | Role | Phone | + [...] | | [address] [place] | [place] [address] | | | | | [place] [address] | | | | | | [phone] | | | +--------+ + + + [...]
--- OUTSIDE RECORDS SUMMARY | ~2019-09-02 | XMS | Encounter Summary ---
Demographics + + + | Address | [address] | | | [place] [address] | + + + | Home Phone [...] | [facility] | | | and Keshawnana | + + + | Organization | [facility] | | | and Keshawnana | + + + | Address | Unknown | + + + | Phone | Unavailable | + + + Support + + + + + | Name | Relationship | Address | Phone | + + + + + | Zoran Whitley | ECON | [address] | | | | | [id number], [place] | | | | | [address] | | + + + + + | Roseann Walker | ECON | [place] | | | | | [address] | | + + + + + Care Team Providers + +------+ + | Care Title One Kindergarten Teacher Name | Role | Phone | + +------+ + PCP | Unavailable | + +------+ + Encounter Details +--------+ + + + + | Date | Type | Department | Care Team | Description | +--------+ + + + + | 11/10/ | Orders Only | [facility] | DalilaMorgan, | | | 2016 | | CONVERSION [address] | DO [address] | | | | | [address] | [place] [address] | | | | | [place], [place] | [phone] | | | | | [address] | | | | | | [phone] | | | +--------+ + + + [...] TR Vmax: | | | 2.34 m/s Interior Decorator: FALGUNI Authenticated by: Obie Chávez | | | Report Date/Time: 11-11-2016 06:30:59 | | + + + + ---------+ | Procedure Note | + ---------+ | Jacobo Haider Conversion - 12/20/2018 6:47 PM PDT Patient Name: Austen Whitley of | | : 1955 Performing Physician: Obie | | Aleksstewart INDICATIONS------ | | -----Dyspnea CONCLUSIONS 1. The [...] cmLVIDd: 3.94 cmLVPWd: 0.91 cmLVOT Area: 3.04 [id number] Diam: 1.96 | | cm%FS: 34.07 %EF(Teich): [...] | | (A-L): 19.69 ml/m2LAAs A2C: 16.50 [id number] A-L A2C: 43.31 mlLALs A2C: 5.34 | | cmLAAs A4C: 16.36 es1OSVLT A-L A4C: 39.12 mlLALs A4C: 5.80 cmRAAs: 10.82 | | be4ESKPG A-L: 22.52 mlRAESV MOD: 21.44 mlRALs: 4.41 cmTAPSE: 2.46 cmAV maxPG: | | 13.17 mmHgAV meanP.06 mmHgAV Vmax: 1.81 m/Stephie Vmean: 1.14 m/Stephie VTI: 33.72 | | cmAVA Vmax: 1.90 cm2AVA (VTI): 2.15 jv6EONA Vmax: 0.00 cm2/m2AVAI (VTI): 0.00 | | cm2/m2LVOT maxP.14 mmHgLVOT meanP.74 mmHgLVSI Dopp: 33.37 ml/m2LVSV Dopp: | | 72.76 mlLVOT Vmax: 1.13 m/sLVOT Vmean: 0.78 m/sLVOT VTI: 23.92 cmMV A Jose: | | 0.74 m/sMV DecT: 242.35 msMV E Jose: 0.78 m/sMV E/A Ratio: 1.05MV PHT: 70.28 | | msMVA By PHT: 3.13 sy2Umbqgy e': 0.09 m/sSeptal E/e': 7.91Lateral e': 0.10 | | m/sLateral E/e': 7.70RAP: 5 mmHgRVSP: 27.08 mmHgTR maxP.08 mmHgTR Vmax: | | 2.34 m/s Interior Decorator: ANNETTAuthenticated by: Obie Corrales Date/Time: 11-11-2016 | | 06:30:59 IMPRESSION: 1. [...] |TR Vmax: 2.34 m/s | | | |Interior Decorator: FALGUNI | |Authenticated by: Obie Chávez | [...]
--- OUTSIDE RECORDS SUMMARY | ~2019-09-02 | XMS | Encounter Summary ---
Demographics + + + | Address | [address] | | | [place] [address] | + + + | Home Phone [...] | [facility] | | | and Keshawnana | + + + | Organization | [facility] | | | and Keshawnana | + + + | Address | Unknown | + + + | Phone | Unavailable | + + + Support + + + + + | Name | Relationship | Address | Phone | + + + + + | Zoran Whitley | ECON | [address] | | | | | [id number], [place] | | | | | [address] | | + + + + + | Roseann Walker | ECON | [place] | | | | | [address] | | + + + + + Care Team Providers + +------+ + | Care Integration Assistant Name | Role | Phone | + [...] | | [address] [place] | [place] [address] | | | | | [place] [address] | | | | | | [phone] | | | +--------+ + + + [...] for comparison only - no result from [place]. | | + + + + +---------+ + + | Performing | Address | City/State/Zipcode | Phone Number | | Organization | | | | + +---------+ + + | [facility] | | | | + +---------+ + + documented in this encounter Visit Diagnoses Not on filedocumented in this encounter"
--- OUTSIDE RECORDS SUMMARY | ~2019-09-02 | XMS | Encounter Summary ---
Demographics + + + | Address | [address] | | | [place] [address] | + + + | Home Phone [...] | [facility] | | | and Keshawnana | + + + | Organization | [facility] | | | and [place]eshawnana | + + + | Address | Unknown | + + + | Phone | Unavailable | + + + Support + + + + + | Name | Relationship | Address | Phone | + + + + + | Zoran Whitley | ECON | [address] | | | | | [id number], [place] | | | | | [address] | | + + + + + | Roseann Walker | ECON | [place] | | | | | [address] | | + + + + + Care Team Providers + +------+ + | Care Axle Bearing Polisher Name | Role | Phone | [...] + + | 10/15/ | Clinical | [facility] | Quirino Olson | Dressing change or | | 2015 | Support | ORTHOPEDIC SURGERY | [address] | removal, surgical | | | | [address] [facility] | [facility] | wound (Primary Dx) | | | | [place], [place] | [place] [address] | | | | | [address] | [phone] | | | | | [phone] | | | +--------+ + + + [...] confirmed she will be here for her medical behavioral hospital follow-up appt in our office. Patient will [...]
--- OUTSIDE RECORDS SUMMARY | ~2019-09-02 | XMS | Encounter Summary ---
Demographics + + + | Address | [address] | | | [place] [address] | + + + | Home Phone | | + + + | Preferred Language | Unknown | + + + | Marital Status | | + + + | Latter-Day Affiliation | Unknown | + + + | Race | Unknown | + + + | Ethnic Group | Unknown | + + + Author + + + | Author | [facility] | | | and Keshawnana | + + + | Organization | [facility] | | | and Keshawnana | + + + | Address | Unknown | + + + | Phone | Unavailable | + + + Support + + + + + | Name | Relationship | Address | Phone | + + + + + | Zoran Whitley | ECON | [address] | | | | | [id number], [place] | | | | | [address] | | + + + + + | Roseann Walker | ECON | [place] | | | | | [address] | | + + + + + Care Team Providers + +------+ + | Care Cleaning Supervisor Name | Role | Phone | [...] | | | asthma, | RD | [place], | | | | | uncomplicate | [place], | [place] [address] | | | | | d | [place] [address] | Phone: | | | | | Procedures | Phone: | [phone] | | | | | F/U 08/01> | [phone] | Fax: | | | | | DOS 09/22> | Fax: | [phone] | | | | | PEND UPDATED | [phone] | | | | | | AUTH FROM | | | | | | | [facility] | | | +--------+--------+ + + + + Encounter Details +--------+---------+ + + + | Date | Type | Department | Care Team | Description | +--------+---------+ + + + | 09/22/ | Office | [facility] | Duncan Bass, | Mild persistent | | 2018 | Visit | PULMONARY [address] | MD [address] | asthma with acute | | | | [place], | [place], [place] | exacerbation | | | | [place] [address] | [address] | (Primary Dx) | | | | [phone] | | | +--------+---------+ + + + [...] original. Pulmonary Follow Up 09/22/2017 HPI Aline Nanetteconsuelo is a 62 y.o. female patient of [...] Osteoporosis Pneumonia Pneumonia 07/30/2017 admitted overnight at [facility] Sensorineural hearing loss Thrombocytopenia (HCC) Vitamin [...] appointment in 4 weeks' time. CC: Morgan Conner, DO Tdocumented in this encounter Plan of Treatment Not on filedocumented as of this encounter Visit Diagnoses + + | Diagnosis | + + | Mild persistent asthma with acute exacerbation - Primary Unspecified asthma, with | | exacerbation | + + documented in this encounter
--- OUTSIDE RECORDS SUMMARY | ~2019-09-02 | XMS | Encounter Summary ---
Demographics + + + | Address | [address] | | | [place] [address] | + + + | Home Phone [...] | Author | [facility] | | | and Keshawnana | + + + | Organization | [facility] | | | and Keshawnana | + + + | Address | Unknown | + + + | Phone | Unavailable | + + + Support + + + + + | Name | Relationship | Address | Phone | + + + + + | Zoran Whitley | ECON | [address] | | | | | [id number], [place] | | | | | [address] | | + + + + + | Roseann Walker | ECON | [place] | | | | | [address] | | + + + + + Care Team Providers + +------+ + | Care Red Hat Linux Engineer Name | Role | Phone | + +------+ + PCP | Unavailable | + +------+ + Reason for Visit + + + | Reason | Comments | + + + | Pre-op Exam | right carpal tunnel release DOS 6/15/16 | + + + Evaluate & Treat (Routine) +--------+--------+ + + + + | Status | Reason | Specialty | Diagnoses / | Referred By | Referred To | | | | | Procedures | Contact | Contact | +--------+--------+ + + + + | Closed | | Orthopedic | Diagnoses | Quaempreji, | Kike, | | | | Surgery | Right hand | Morgan Vale DO | Ramon Carver MD | | | | | pain Right | [address] | [address] | | | | | wrist pain | RD | [place] | | | | | | [place], | [place] | | | | | | [place] [address] | [address] Phone: | | | | | | Phone: | [phone] | | | | | | [phone] | Fax: | | | | | | Fax: | [phone] | | | | | | [phone] | | +--------+--------+ + + + + Encounter Details +--------+---------+ + + + | Date | Type | Department | Care Team | Description | +--------+---------+ + + + | 10/07/ | Office | [facility] | Quirino Olson | Hepatic cirrhosis, | | 2015 | Visit | ORTHOPEDIC SURGERY | [address] | unspecified hepatic | | | | [address] [facility] | [facility] | cirrhosis type (HCC) | | | | [place] | [place] [address] | (Primary Dx); | | | | [address] | [phone] | Diuretics causing | | | | [phone] | | adverse effect in | | [...]
--- OUTSIDE RECORDS SUMMARY | ~2019-09-02 | XMS | Encounter Summary ---
Demographics + + + | Address | [address] | | | [place] [address] | + + + | Home Phone [...] + | Author | [facility] | | | and Keshawnana | + + + | Organization | [facility] | | | and Keshawnana | + + + | Address | Unknown | + + + | Phone | Unavailable | + + + Support + + + + + | Name | Relationship | Address | Phone | + + + + + | Zoran Whitley | ECON | [address] | | | | | [id number], [place] | | | | | [address] | | + + + + + | Roseann Walker | ECON | [place] | | | | | [address] | | + + + + + Care Team Providers + +------+ + | Care Directory Assistance Operator Name | Role | Phone | [...] + + | 04/25/ | [facility] | [facility] | Reza Pittman, | Paresthesias in | | 2014 | | MED CTR EM[facility] | MD [address] | right hand (Primary | | | | CENTER [address] | [place] | Dx); Acute wrist | | | | [place] | [address] | pain, right | | | | [address] | | | | | | [phone] | | | +--------+ + + + [...] cannot be sent through Care Everywhere.PARAESTHESIAS ( AUSTRIAN)documented in this encounter Medications at Time of [...] + + | Performing | Address | City/State[facility] | Phone Number | | [...] | | | | Starting 04/25/15 at 2052, 1 | | | | | | | tablet(s) every 6 hours prn | | | | | | | anxiety Dispense for home use., | | | | | | + + + +------+------+------+ +---+---+ | | | +---+---+ documented in this encounter
--- OUTSIDE RECORDS SUMMARY | ~2019-09-02 | XMS | Encounter Summary ---
Demographics + + + | Address | [address] | | | [place] [address] | + + + | Home Phone [...] [facility] | | | and Keshawnana | + + + | Organization | [facility] | | | and Keshawnana | + + + | Address | Unknown | + + + | Phone | Unavailable | + + + Support + + + + + | Name | Relationship | Address | Phone | + + + + + | Zoran Whitley | ECON | [address] | | | | | [id number], [place] | | | | | [address] | | + + + + + | Roseann Walker | ECON | [place] | | | | | [address] | | + + + + + Care Team Providers + +------+ + | Care It Project Lead Name | Role | Phone | + [...] | | [address] [place] | [place] [address] | | | | | [place] [address] | | | | | | [phone] | | | +--------+ + + + [...]
--- OUTSIDE RECORDS SUMMARY | ~2019-09-02 | XMS | Encounter Summary ---
Demographics + + + | Address | [address] | | | [place] [address] | + + + | Home Phone | | + + + | Preferred Language | Unknown | + + + | Marital Status | | + + + | Nondenominational Affiliation | Unknown | + + + | Race | Unknown | + + + | Ethnic Group | Unknown | + + + Author + + + | Author | [facility] | | | and Keshawnana | + + + | Organization | [facility] | | | and [place]eshawnana | + + + | Address | Unknown | + + + | Phone | Unavailable | + + + Support + + + + + | Name | Relationship | Address | Phone | + + + + + | Zoran Whitley | ECON | [address] | | | | | [id number], [place] | | | | | [address] | | + + + + + | Roseann Walker | ECON | [place] | | | | | [address] | | + + + + + Care Team Providers + +------+ + | Care Heading Pinner Name | Role | Phone | + +------+ + PCP | Unavailable | + +------+ + Encounter Details +--------+---------+ + + + | Date | Type | Department | Care Team | Description | +--------+---------+ + + + | 10/25/ | Office | [facility] | Caro Flores | S/P orthopedic | | 2016 | Visit | ORTHOPEDIC SURGERY | MD [address] [facility] | surgery, follow-up | | | | [address] [facility] | [place] | exam (Primary Dx) | | | | [place], [place] | [address] | | | | | [address] | | | | | | [phone] | | | +--------+---------+ + + + [...] Caro Flores MD - 10/26/2015 6:08 PM PDTSee soap note [id number].Electronically sign ed by Caro Flores MD at 10/26/2015 6:08 PM PDTCaro Flores MD - 6 6:07 PM PDT [facility] ORTHOPEDIC SURGERY [address] [place] [address] OFFICE NOTE CARO FLORES MD Patient: ALINE WHITLEY Admitting: MR #: [id number] LOC: PT TYPE: Adm Date: 10/26/2015 : [...] Transcribed on 10/27/2015 17:36:43 by eri job# [id number] Confirmation #: [id number] cc: LANA MELCHOR DO documented in this encounter Plan of Treatment Not on filedocumented as of this encounter Visit Diagnoses + + | Diagnosis | + + | S/P orthopedic surgery, follow-up exam - Primary Follow-up examination, following | | other surgery | + + documented in this encounter"
--- OUTSIDE RECORDS SUMMARY | ~2019-09-02 | XMS | Encounter Summary ---
Demographics + + + | Address | [address] | | | [place] [address] | + + + | Home Phone [...] | Author | [facility] | | | and Keshawnana | + + + | Organization | [facility] | | | and [place]ana | + + + | Address | Unknown | + + + | Phone | Unavailable | + + + Support + + + + + | Name | Relationship | Address | Phone | + + + + + | Zoran Whitley | ECON | [address] | | | | | [id number], [place] | | | | | [address] | | + + + + + | Roseann Walker | ECON | [place] | | | | | [address] | | + + + + + Care Team Providers + +------+ + | Care Drop Machine Operator Name | Role | Phone [...] + + | 01/31/ | Emergency | [facility] | Reza Wynn, | Other ascites | | 2019 - | | MEDICAL CENTER | MD Maame Conway | (Primary Dx); | | | | EMERGENCY CENTER | [place] [address] | Generalized | | 02/01/ | | [address] | [phone] | abdominal pain; | | 2018 | | [place], [place] | | Autoimmune hepatitis | | | | [address] | | (HCC) | | | | [phone] | | | +--------+ + + + [...] be sent through Care Everywhere.Abdominal Pain, Adult (Tajik)Ascites (Tajik)documented in this encounter Medications at Time of [...] | | | 2018 | | | 7:54 | | | [...] | | | ON?/ | | | | | | 9 | | | 19:52? | | | HOPTOW | | | IT, | | | YOSELYN? | | | MRN: | | | [id number] | | | [id number] | | | riteri | | | [...] | | | St. | | | [facility]aline | | | y | | | [...] | | | St. | | | Metaline | | | y | | | [...] | | | St. | | | Metaline | | | y | | | [...] Acuity | | | | | | [facility] | | | | | | Health [...] | | | St. | | | Metaline | | | y | | | [...] | | | 2019 | | | [facility] | | | | | | Health [...] | | | St. | | | [place] | | | y H. | | | [place] | | | [place] | | | Emerge | | | ncy | | | Chief | | | Compla | | | int: | | | SHAKY | | | Sep | | | 1, | | | 2019 | | | [facility] | | [facility] | | | [facility] | | | y H. | | [...] | | | St. | | | Metaline | | | y H. | | [...] | | | St. | | | Metaline | | | y H. | | [...] | | | St. | | | [facility]aline | | | y H. | | [...] | | | St. | | | Metaline | | | y H. | | [...] | | | St. | | | Metaline | | | y H. | | [...] | | | St. | | | Metaline | | | y H. | | [...] | | | 2018 | | | [facility] | | | | | | Health [...] | | | St. | | | Metaline | | | y H. | | [...] MD | | | | | | Knot Borer | | | al | | | [...] | | | N, | | | HEDIS REGISTERED NURSE RN-C | | | Nurse | | | [...] | [facility] | | | Result | [facility];[address] | | LABORATORY | | | | [place] [address] | | | | + + + + + + | RESULT | NO GROWTH 4 DAYS | | [facility] | | | | | | LABORATORY | | + + + + + + | RESULT | Testing performed at | | [facility] | | | | TCL, [address] | | LABORATORY | | | | [place], [place] | | | | | | [id number]: Testing | | | | | | performed at [facility], [address] | | | | | | [address] [place], [place], [place] | | | | | | [address] | | | | + + + + + + + + | Specimen | + + | Body Fluid - Ascitic | | fluid sample | | (specimen) | + + + + + + + | Performing | Address | City/State/Zipcode | Phone Number | | Organization | | | | + + + + + | [facility] | [address] | [place] [address] | [phone] | + + + + + Cell [...] + + + + + | Color, | YELLOW | | [facility] | | | Urine | | | LABORATORY | | + + + + + + | APPEARANCE | CLOUDY | | [facility] | | | | | | LABORATORY | | + + + + + + | BF RBC | <48349 | /mm3 | [facility] | | | [...] | | | Counted | performed at [facility] | | LABORATORY | | | | [address];[place], [place] | | | | | | [id number] ON 02/01 | | | | | [...] | + + + + + | [facility] | [address] | [place] [address] | [phone] | + + + + + Urinalysis [...] - 1.030 | [facility] | | | [place], | | | LABORATORY | | | [...] + + + | Red Blood | 6-10 | 0 - 5 /hpf | [facility] | | | Cells, | | | LABORATORY | | | Urine | | | | | + + + + + + | Squamous | >100 | /lpf | [facility] | [...] + + + + | Mucus, | 1+ | | [facility] | | | Urine | | | LABORATORY | | + + + + + + | Calcium | 4+Comment: Testing | /hpf | [facility] | | | Oxalate | performed at [facility];[address] | | LABORATORY | | | Crystals, | [place] | | | | | Urine | [address] | | | | + + + [...] | + + + + + | [facility] | [address] | [place] [address] | [phone] | + + + + + Lipase (01/31/2019 9:42 PM PDT) + + + + + + | Component | Value | Ref Range | Performed | Pathologist | | | | | At | Signature | + + + + + + | Lipase | 66 (H)Comment: Testing | 12 - 53 U/L | KR | | | | performed at [facility];[address] | | LABORATORY | | | | [place] | | | | | | [address] | | | | + + + + + + + + | Specimen | + + | Blood | + + + + + + + | Performing | Address | City/State/Zipcode | Phone Number | | Organization | | | | + + + + + | [facility] | [address] | [place] [address] | [phone] | + + + + + Comprehensive [...] | >60Comment: GFR <60: | >60 | [facility] | | | GFR | CHRONIC KIDNEY [...] | | | | | | [facility] traceable | | | | | | equation.Testing | | | | | | performed at [facility];[address] | | | | | | [facility];[place], [place] | | | | | | [address] | | | | + + + + + + + + | Specimen | + + | Blood | + + + + + + + | Performing | Address | City/State/Zipcode | Phone Number | | Organization | | | | + + + + + | [facility] | [address] [facility] | [place] [address] | [phone] | + + + + + CBC [...] 0.08Comment: Testing | 0.00 - 0.10 | [facility] | | | Absolute | performed at [facility];[address] | K/uL | LABORATORY | | | | [address];[place], [place] | | | | | | [address] | | | | + + + + + + + + | Specimen | + + | Blood | + + + + + + + | Performing | Address | City/State/Zipcode | Phone Number | | Organization | | | | + + + + + | [facility] | [address] | [place] [address] | [phone] | + + + + + documented [...] | | | | | Infiltration, ONCE, [facility] 01/31/19 | | PM PDT | | | | | at 2150, For 1 dose | | | | | | + + + +--------+------+------+ +---+---+ | | | +---+---+ + +-------+ +------+---+---+ | morphine injection 4 mg 4 mg, | Given | 02/01/20 | 4 mg | | | | Intravenous, ONCE, [facility] 01/31/19 at | | 19 10:25 | | | | | 2140, For 1 dose | | PM PDT | | | | + +-------+ +------+---+---+ +---+---+ | | | +---+---+ + +-------+ +------+---+---+ | morphine injection 4 mg 4 mg, | Given | 02/02/20 | 4 mg | | | | Intravenous, ONCE, [facility] 01/31/19 at | | 19 12:05 | | | | | 2320, For 1 dose | | AM PDT | | | | + +-------+ +------+---+---+ +---+---+ | | | +---+---+ documented in this encounter"
--- OUTSIDE RECORDS SUMMARY | ~2019-09-02 | XMS | Encounter Summary ---
Demographics + + + | Address | [address] | | | [place] [address] | + + + | Home Phone [...] | Author | [facility] | | | and Keshawnana | + + + | Organization | [facility] | | | and Keshawnana | + + + | Address | Unknown | + + + | Phone | Unavailable | + + + Support + + + + + | Name | Relationship | Address | Phone | + + + + + | Zoran Whitley | ECON | [address] | | | | | [id number], [place] | | | | | [address] | | + + + + + | Roseann Monolongsahil | ECON | [place] | | | | | [address] | | + + + + + Care Team Providers + +------+ + | Care Optoelectronic Technician Name | Role | Phone | [...] + + | 08/13/ | Emergency | [facility] | Jeffrey Augustin | Closed fracture of | | 2018 | | MED CTR EMERGENCY | MD Anjum [address] | multiple ribs of | | | | CENTER [address] | [address] [place] | left side, initial | | | | [place], [place] | [place] [address] | encounter (Primary | | | | [address] | [phone] | Dx); Acute pain; | | | | [phone] | | Fall, initial | | | [...] report was | | | sent by [facility] with no significant discrepancy. | | | [...] | A preliminary report was sent by [facility] with no significant | | discrepancy. | [...] | | | | | | [employer] | | | | | [...] ZAFAR. | [address] | [place] | [phone] | | [facility] | | [address] | | | - LABORATORY | | [...] ST. | [address] | [place], [place] | [phone] | | [facility] | | [address] | | | - LABORATORY | | [...] | 1.19 | 0.60 - 1.30 | [facility] | | | | | mg/dL | Nader ROSANNA | | | | | | MEDICAL | | | | | | CENTER - | | | | | | LABORATORY | | + + + + + + | eGFR if not | 46 (L)Comment: | >=60 | [facility] | | | | GLOMERULAR FILTRATION | mL/min/1.73m2 | [facility] | | | GUAMANIAN | RATE,ESTIMATED | | MEDICAL | | | | mL/min/1.35k0Jtfn than | | CENTER - | | [...] [address] | [place] | [phone] | | [facility] | | [address] | | | - LABORATORY | | [...] [address] | [place] | [phone] | | [facility] | | [address] | | | - LABORATORY | | [...] | | | | JOSELUIS PINON MD ([id number]) | | | | | | on [...]
--- OUTSIDE RECORDS SUMMARY | ~2019-09-02 | XMS | Encounter Summary ---
Demographics + + + | Address | [address] | | | [place] [address] | + + + | Home Phone [...] Author | [facility] | | | and Keshawnana | + + + | Organization | [facility] | | | and Keshawnana | + + + | Address | Unknown | + + + | Phone | Unavailable | + + + Support + + + + + | Name | Relationship | Address | Phone | + + + + + | Zoran Whitley | ECON | [address] | | | | | [id number], [place] | | | | | [address] | | + + + + + | Roseann Walker | ECON | [place] | | | | | [address] | | + + + + + Care Team Providers + +------+ + | Care Cam Specialist Name | Role | Phone | [...] | | | | [place], | [place] | | | | | | [place] [address] | [address] Phone: | | | | | | Phone: | [phone] | | | | | | [phone] | Fax: | | | | | | Fax: | [phone] | | | | | | [phone] | | +--------+--------+ + + + + Encounter Details +--------+---------+ + + + | Date | Type | Department | Care Team | Description | +--------+---------+ + + + | 10/07/ | Office | [facility] | Quirino Olson | Hepatic cirrhosis, | | 2015 | Visit | ORTHOPEDIC SURGERY | [address] | unspecified hepatic | | | | [address] [address] | [facility] | cirrhosis type (HCC) | | | | [place] | [place] [address] | (Primary Dx); | | | | [address] | [phone] | Diuretics causing | | | | [phone] | | adverse effect in | | [...]
--- OUTSIDE RECORDS SUMMARY | ~2019-09-02 | XMS | Encounter Summary ---
Demographics + + + | Address | [address] | | | [place] [address] | + + + | Home Phone [...] Author | [facility] | | | and Keshawnana | + + + | Organization | [facility] | | | and Keshawnana | + + + | Address | Unknown | + + + | Phone | Unavailable | + + + Support + + + + + | Name | Relationship | Address | Phone | + + + + + | Zoran Whitley | ECON | [address] | | | | | [id number], [place] | | | | | [address] | | + + + + + | Roseann Walker | ECON | [place] | | | | | [address] | | + + + + + Care Team Providers + +------+ + | Care Manager Discovery Name | Role | Phone | + [...] | | | | | | | AR REVISE | | | | | | [...] Release | | | | [address] | [place] | | | | | [place], [place] | [address] | | | | | [address] | | | | | | [phone] | | | +--------+---------+ + + + [...] mg of acetaminophen (Tylenol) per day. Hydrocodone-acetaminophen ([place] ) and Oxycodone-acetaminophen (Percocet) have 325 mg [...] hand or fingers Fever over 100.4F (38C) 4727-8917 [employer]. [address] [place] [address]. All [facility] ts reserved. This information is not [...] [address] | [place] | [phone] | | [facility] | | [address] | | | - LABORATORY | | [...] ST. | [address] | [place], [place] | [phone] | | [facility] | | [address] | | | - LABORATORY | | [...] [address] | [place] | [phone] | | [facility] | | [address] | | | - LABORATORY | | [...] | 0.91 | 0.60 - 1.30 | [facility] | | | | | mg/dL | [facility] | | | | | | MEDICAL | | | | | | CENTER - | | | | | | LABORATORY | | + + + + + + | eGFR if not | >60Comment: GLOMERULAR | >=60 | [facility] | | | | FILTRATION | mL/min/1.73m2 | [facility] | | | HONDURAN | RATE,ESTIMATED | | MEDICAL | | | | mL/min/1.87p5Xpie than | | CENTER - | | [...] + | [address] | [address] | [place] | [phone] | | [facility] | | [address] | | | - LABORATORY | | [...] | [address] | [place] | [phone] | | [facility] | | [address] | | | - LABORATORY | | [...] [address] | [place] | [phone] | | [facility] | | [address] | | | - LABORATORY | | [...]
--- OUTSIDE RECORDS SUMMARY | ~2019-09-02 | XMS | Encounter Summary ---
Demographics + + + | Address | [address] | | | [place] [address] | + + + | Home Phone | | + + + | Preferred Language | Unknown | + + + | Marital Status | | + + + | Gnosticist Affiliation | Unknown | + + + | Race | Unknown | + + + | Ethnic Group | Unknown | + + + Author + + + | Author | [facility] | | | and Keshawnana | + + + | Organization | [facility] | | | and Keshawnana | + + + | Address | Unknown | + + + | Phone | Unavailable | + + + Support + + + + + | Name | Relationship | Address | Phone | + + + + + | Zoran Whitley | ECON | [address] | | | | | [id number], [place] | | | | | [address] | | + + + + + | Roseann Walker | ECON | [place] | | | | | [address] | | + + + + + Care Team Providers + +------+ + | Care General Office Worker Name | Role | Phone | + +------+ + PCP | Unavailable | + +------+ + Encounter Details +--------+ + + + + | Date | Type | Department | Care Team | Description | +--------+ + + + + | 03/09/ | Hospital | [facility] | Morgan Woo MD | 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 | | | | | | MEDICAL [...] 101 | 70 - 109 mg/dL | [facility] | | | | | | [facility] | | | | | | MEDICAL | | | | | | CENTER - | | | | | | LABORATORY | | + + + + + + | BUN | 11 | 7 - 18 mg/dL | [facility] | | | | | | [facility] | | | | | | MEDICAL | | | | | | CENTER - | | | | | | LABORATORY | | + + + + + + | Creatinine | 0.95 | 0.60 - 1.30 | [facility] | | | | | mg/dL | [facility] | | | | | | MEDICAL | | | | | | CENTER - | | | | | | LABORATORY | | + + + + + + | eGFR if not | 60Comment: GLOMERULAR | >=60 | [facility] | | | | FILTRATION | mL/min/1.73m2 | [facility] | | | FRENCH | RATE,ESTIMATED | | MEDICAL | | | | mL/min/1.73g8Gfkz than | | CENTER - | | [...] | | ine Ratio | | | [facility] | | | [...] [address] | [place] | [phone] | | [facility] | | [address] | | | - LABORATORY | | | | + + + + + Ferritin (03/09/2015 11:45 AM PST) + +-------+ + + + | Component | Value | Ref Range | Performed | Pathologist | | | | | At | Signature | + +-------+ + + + | FERRITIN | 27 | 11-<307 ng/mL | [facility] | | | | | | [facility] | | | | | | MEDICAL | | | | | | [place] - | | | | | | [...] [address] | [place] | [phone] | | [facility] | | [address] | | | - LABORATORY | | [...] | B-12 | <145 | | [facility] | | | | pg/mLINDETERMINATE: | | [...] + | [facility] | [address] | [place] | [phone] | | [facility] | | [address] | | | - LABORATORY | | | | + + + + + documented in this encounter Visit Diagnoses + + | Diagnosis | + + | Benign neoplasm of tongue | + + documented in this encounter"
--- OUTSIDE RECORDS SUMMARY | ~2019-09-02 | XMS | Encounter Summary ---
Demographics + + + | Address | [address] | | | [place] [address] | + + + | Home Phone [...] Author | [facility] | | | and Keshawnana | + + + | Organization | [facility] | | | and Keshawnana | + + + | Address | Unknown | + + + | Phone | Unavailable | + + + Support + + + + + | Name | Relationship | Address | Phone | + + + + + | Zoran Whitley | ECON | [address] | | | | | [id number], [place] | | | | | [address] | | + + + + + | Roseann Walker | ECON | [place] | | | | | [address] | | + + + + + Care Team Providers + +------+ + | Care Ham Trimmer Name | Role | Phone | + +------+ + PCP | Unavailable | + +------+ + Encounter Details +--------+ + + + + | Date | Type | Department | Care Team | Description | +--------+ + + + + | 06/26/ | Hospital | [facility] | | | | 2007 | Encounter | MED CTR XRAY [address] | | | | | | [place] [address] | | | | | | [place] [address] | | | | | | [phone] | | | +--------+ + + + [...]
--- OUTSIDE RECORDS SUMMARY | ~2019-09-02 | XMS | Encounter Summary ---
Demographics + + + | Address | [address] | | | [place] [address] | + + + | Home Phone [...] | Author | [facility] | | | and Keshawnana | + + + | Organization | [facility] | | | and Keshawnana | + + + | Address | Unknown | + + + | Phone | Unavailable | + + + Support + + + + + | Name | Relationship | Address | Phone | + + + + + | Zoran Whitley | ECON | [address] | | | | | [id number], [place] | | | | | [address] | | + + + + + | Roseann Walker | ECON | [place] | | | | | [address] | | + + + + + Care Team Providers + +------+ + | Care Helper Maintenance Cleaning Name | Role | Phone | + [...] + + | 03/15/ | Emergency | [facility] | Jeffrey Augustin | Lymphedema (Primary | | 2019 | | MED CTR EMERGENCY | MD Anjum [address] | Dx) | | | | [place] [address] | [facility] | | | | | [place] | [place] [address] | | | | | [address] | [phone] | | | | | [phone] | | | +--------+ + + + [...] cannot be sent through Care Everywhere.Lymphedema (Eng [facility])Leg Swelling in Both Legs (Israeli)Lymphedema, Managing (Israeli)Oxycodone tablets or c apsules (Israeli)documented in this encounter Medications at Time of [...] | | | FICATI | | | ON? | | | | | | 9 | | | 17:50? | | | HOPTOW | | | IT, | | | MARISOL | | | INE?MR | | | N: | | | [id number] | | | [id number] | | | riteri | | | [...] | | | St. | | | [place] | | | y | | | [...] | | | St. | | | [place] | | | y | | | [...] | | | St. | | | [place] | | | y | | | [...] | | | St. | | | [place] | | | y | | | [...] | | | St. | | | [place] | | | y H. | | | [place] | | | [place] | | | Emerge | | | ncy | | | Chief | | | Compla | | | int: | | | SHAKY | | | Sep | | | 1, | | | 2019 | | | [facility] | | | [facility] | | | [place] | | | y H. | | [...] | | | St. | | | [place] | | | y H. | | [...] | | | St. | | | [place] | | | y H. | | [...] | | | St. | | | [place] | | | y H. | | [...] | | | St. | | | [place] | | | y H. | | [...] | | | St. | | | [place] | | | y H. | | [...] MD | | | | | | Operations And Maintenance Manager | | | al | | [...] | | | N, | | | BOTTOM SCRUBBER-C | | | Nurse | | | [...] [address] | [place] | [phone] | | [facility] | | [address] | | | - LABORATORY | | | | + + + + + B Type Natriuretic Peptide (03/15/2019 7:59 PM PST) + +---------+ + + + | Component | Value | Ref Range | Performed | Pathologist | | | | | At | Signature | + +---------+ + + + | BNP | 149 (H) | <100 pg/mL | [facility] | | | | | | [facility] | | | | | | [...] [address] | [place] | [phone] | | [facility] | | [address] | | | - LABORATORY | | [...] (H) | 60 - 106 mg/dL | [facility] | | | | | | [facility] | | | | | | MEDICAL | | | | | | CENTER - | | | | | | LABORATORY | | + + + + + + | BUN | 10 | 9 - 23 mg/dL | [facility] | | | | | | [facility] | | | | | | MEDICAL | | | | | | CENTER - | | | | | | LABORATORY | | + + + + + + | Creatinine | 0.77 | 0.55 - 1.02 | [facility] | | | | | mg/dL | [facility] | | | | | | MEDICAL | | | | | | CENTER - | | | | | | LABORATORY | | + + + + + + | eGFR if not | >60Comment: GLOMERULAR | >=60 | [facility] | | | | FILTRATION | mL/min/1.73m2 | [facility] | | | TURKISH | RATE,ESTIMATED | | MEDICAL | | | | mL/min/1.74m7Gakd than | | CENTER - | | [...] (H) | 0.3 - 1.2 mg/dL | [facility] | | | Total | | | [facility] | | | | | | MEDICAL [...] [address] | [place] | [phone] | | [facility] | | [address] | | | - LABORATORY | | [...] | | Monocytes | | K/uL | [facility] | | | | | | MEDICAL | | | | | | CENTER - | | | | | | LABORATORY | | + + + + + + | Absolute | 0.23 | 0.00 - 0.40 | [facility] | | | Eosinophils | | K/uL | [facility] | | | | | | MEDICAL | | | | | | CENTER - | | | | | | LABORATORY | | + + + + + + | Absolute | 0.05 | 0.00 - 0.10 | [facility] | | | Basophils | | K/uL | [facility] | [...] [address] | [place] | [phone] | | [facility] | | [address] | | | - LABORATORY | | [...] ordering provider, | | | by the coin machine collector supervisor, immediately following the exam. Dictated | [...] to the ordering provider, by the | |coin machine collector supervisor, immediately following the exam. | | [...] | | | | | | | 2054, For 2 days, For 2 days. , | | | | | | | Patient Address: [address] | | | | | | | [address];[place] [address], | | | | | | + + + +------+---+---+ +---+---+ | | | +---+---+ documented in this encounter
--- OUTSIDE RECORDS SUMMARY | ~2019-09-02 | XMS | Encounter Summary ---
Demographics + + + | Address | [address] | | | [place] [address] | + + + | Home Phone [...] + + + | Author | [facility] | | | and Keshawnana | + + + | Organization | [facility] | | | and Keshawnana | + + + | Address | Unknown | + + + | Phone | Unavailable | + + + Support + + + + + | Name | Relationship | Address | Phone | + + + + + | Zoran Whitley | ECON | [address] | | | | | [id number], [place] | | | | | [address] | | + + + + + | Roseann Walker | ECON | [place] | | | | | [address] | | + + + + + Care Team Providers + +------+ + | Care Composing Room Machinist Apprentice Name | Role | Phone | [...] | | | uncomplicate | [place], | [place] [address] | | | | | d | [place] [address] | Phone: | | | | | Procedures | Phone: | [phone] | | | | | F/U 08/01> | [phone] | Fax: | | | | | DOS 09/22> | Fax: | [phone] | | | | | PEND UPDATED | [phone] | | | | | | AUTH FROM | | | | | | | [facility] | | | +--------+--------+ + + + + Encounter Details +--------+---------+ + + + | Date | Type | Department | Care Team | Description | +--------+---------+ + + + | 09/22/ | Office | [facility] | Duncan Bass, | Mild persistent | | 2018 | Visit | PULMONARY [address] | MD [address] | asthma with acute | | | | [place], | [place], [place] | exacerbation | | | | [place] [address] | [address] | (Primary Dx) | | | | [phone] | | | +--------+---------+ + + + [...] Osteoporosis Pneumonia Pneumonia 07/30/[address] [facility] Sensorineural hearing loss Thrombocytopenia (HCC) Vitamin D [...]
--- OUTSIDE RECORDS SUMMARY | ~2019-09-02 | XMS | Encounter Summary ---
Demographics + + + | Address | [address] | | | [place] [address] | + + + | Home Phone | | + + + | Preferred Language | Unknown | + + + | Marital Status | | + + + | Congregational Affiliation | Unknown | + + + | Race | Unknown | + + + | Ethnic Group | Unknown | + + + Author + + + | Author | [facility] | | | and Keshawnana | + + + | Organization | [facility] | | | and Keshawnana | + + + | Address | Unknown | + + + | Phone | Unavailable | + + + Support + + + + + | Name | Relationship | Address | Phone | + + + + + | Zoran Whitley | ECON | [address] | | | | | [id number], [place] | | | | | [address] | | + + + + + | Roseann Walker | ECON | [place] | | | | | [address] | | + + + + + Care Team Providers + +------+ + | Care Electric Truck Driver Name | Role | Phone | [...] | | | | | | | [place] | | | | | | [...] + + + + | 10/13/ | [facility] | [facility] | Ramon Stokes | Carpal tunnel | | 2016 | Encounter | MED CTR OR INTRA OP | Mehul, [address] | syndrome on right | | | | [address] | [place] | (Primary Dx); | | | | [place] | [address] | Hepatic cirrhosis, | | | | [address] | | unspecified hepatic | | | | [phone] | | cirrhosis type | | | [...] mg of acetaminophen (Tylenol) per day. Hydrocodone-acetaminophen ([place] ) and Oxycodone-acetaminophen (Percocet) have 325 mg acetaminophen per tablet. Regular [facility] acetaminophen is 325 mg per tablet. Extra [...] hand or fingers Fever over 100.4F (38C) 4244-8418 [employer]. [address] [place] [address]. All righ ts reserved. This information is [...] [address] | [place] | [phone] | | [facility] | | [address] | | | - LABORATORY | | [...] [address] | [place] | [phone] | | [facility] | | [address] | | | - LABORATORY | | [...] + | [facility] | [address] | [place] | [phone] | | [facility] | | [address] | | | - LABORATORY | | [...] | mL/min/1.73m2 | [facility] | | | KYRGYZ | RATE,ESTIMATED | | MEDICAL | | | | mL/min/1.13f1Posp than | | CENTER - | | [...] [address] | [place] | [phone] | | [facility] | | [address] | | | - LABORATORY | | [...] [address] | [place] | [phone] | | [facility] | | [address] | | | - LABORATORY | | [...] | | | | | g/dL | [facility] | | | | | | [...] [address] | [place] | [phone] | | [facility] | | [address] | | | - LABORATORY | | [...]
--- OUTSIDE RECORDS SUMMARY | ~2019-09-02 | XMS | Encounter Summary ---
Demographics + + + | Address | [address] | | | [place] [address] | + + + | Home Phone [...] Author | [facility] | | | and Keshawnana | + + + | Organization | [facility] | | | and Keshawnana | + + + | Address | Unknown | + + + | Phone | Unavailable | + + + Support + + + + + | Name | Relationship | Address | Phone | + + + + + | Zoran Whitley | ECON | [address] | | | | | [id number], [place] | | | | | [address] | | + + + + + | Roseann Walker | ECON | [place] | | | | | [address] | | + + + + + Care Team Providers + +------+ + | Care Country Printer Apprentice Name | Role | Phone | + +------+ + PCP | Unavailable | + +------+ + Encounter Details +--------+ + + + + | Date | Type | Department | Care Team | Description | +--------+ + + + + | 09/07/ | Hospital | [facility] | Celeste Ross | Hepatic cirrhosis, | | 2018 | Encounter | MED CTR ULTRASOUND | [address] | unspecified hepatic | | | | [address] [place] | [address] [facility] | cirrhosis type, | | | | [place], [place] | [address] [place], [place] | unspecified whether | | | | [address] | [address] | ascites present | | | | [phone] | [phone] | (HCC) | | | | | [...] | 0 | 08/09/19 | | | (KEMAR BECERRA) 600 | | | | 18 | [...] 1315 hours by | | | the credit analysis manager. Dictated and Signed by: Mark Anthony Finn MD | | | Electronically signed: 09/07/2017 2:25 PM | | + + + + + | Procedure Note | + + | Jacobo Haider Results In - 09/07/2017 2:28 PM PDT [...] at 1315 hours by the | | credit analysis manager. | | | | Dictated and Signed [...]
--- OUTSIDE RECORDS SUMMARY | ~2019-09-02 | XMS | Encounter Summary ---
Demographics + + + | Address | [address] | | | [place] [address] | + + + | Home Phone | | + + + | Preferred Language | Unknown | + + + | Marital Status | | + + + | Religion Affiliation | Unknown | + + + | Race | Unknown | + + + | Ethnic Group | Unknown | + + + Author + + + | Author | [facility] | | | and Keshawnana | + + + | Organization | [facility] | | | and Keshawnana | + + + | Address | Unknown | + + + | Phone | Unavailable | + + + Support + + + + + | Name | Relationship | Address | Phone | + + + + + | Zoran Whitley | ECON | [address] | | | | | [id number], [place] | | | | | [address] | | + + + + + | Roseann Walker | ECON | [place] | | | | | [address] | | + + + + + Care Team Providers + +------+ + | Care Body Mechanic Name | Role | Phone | + +------+ + PCP | Unavailable | + +------+ + Encounter Details +--------+ + + + + | Date | Type | Department | Care Team | Description | +--------+ + + + + | 09/07/ | Hospital | [facility] | Celeste Ross | Hepatic cirrhosis, | | 2018 | Encounter | MED CTR ULTRASOUND | [address] | unspecified hepatic | | | | [address] [place] | [address] [facility] | cirrhosis type, | | | | [place], [place] | [address] [place], [place] | unspecified whether | | | | [address] | [address] | ascites present | | | | [phone] | [phone] | (HCC) | | | | | [...] 1315 hours by | | | the housekeeping assistant. Dictated and Signed by: Mark Anthony Finn [...] at 1315 hours by the | | housekeeping assistant. | | | | Dictated and Signed [...]
--- OUTSIDE RECORDS SUMMARY | ~2019-09-02 | XMS | Encounter Summary ---
Demographics + + + | Address | [address] | | | [place] [address] | + + + | Home Phone [...] | Author | [facility] | | | and Keshawnana | + + + | Organization | [facility] | | | and Keshawnana | + + + | Address | Unknown | + + + | Phone | Unavailable | + + + Support + + + + + | Name | Relationship | Address | Phone | + + + + + | Zoran Whitley | ECON | [address] | | | | | [id number], [place] | | | | | [address] | | + + + + + | Roseann Walker | ECON | [place] | | | | | [address] | | + + + + + Care Team Providers + +------+ + | Care Appeals Court Associate Justice Name | Role | Phone | + [...] + | 07/19/ | Refill | [facility] | Ramon Stokes | Appointment | | 2015 | | ORTHOPEDIC SURGERY | MD Mehul [address] [facility] | | | | | [address] | [place], [place] | | | | | [place], [place] | [address] | | | | | [address] | | | | | | [phone] | | | +--------+--------+ + + + [...]
--- OUTSIDE RECORDS SUMMARY | ~2019-09-02 | XMS | Encounter Summary ---
Demographics + + + | Address | [address] | | | [place] [address] | + + + | Home Phone [...] + + | Author | [facility] | | | and Keshawnana | + + + | Organization | [facility] | | | and Keshawnana | + + + | Address | Unknown | + + + | Phone | Unavailable | + + + Support + + + + + | Name | Relationship | Address | Phone | + + + + + | Zoran Whitley | ECON | [address] | | | | | [id number], [place] | | | | | [address] | | + + + + + | Roseann Walker | ECON | [place] | | | | | [address] | | + + + + + Care Team Providers + +------+ + | Care Corporate Counselor Name | Role | Phone | + +------+ + PCP | Unavailable | + +------+ + Reason for Visit + + + | Reason | Comments | + + + | Follow-up | right upper extremity emg from [facility] | + + + Encounter Details +--------+---------+ + + + | Date | Type | Department | Care Team | Description | +--------+---------+ + + + | 07/15/ | Office | [facility] | Caro Flores | Carpal tunnel | | 2016 | Visit | ORTHOPEDIC SURGERY | MD Mehul [address] [place] [address] | syndrome of right | | | | [address] [place] [address] | [place], [place] | wrist (Primary Dx) | | | | [place], [place] | [address] | | | | | [address] | | | | | | [phone] | | | +--------+---------+ + + + [...] - 07/16/2015 4:59 PM PDTSee soap note [id number].Electronically sign ed by Caro Flores MD at 07/16/2015 4:59 PM PDTCaro Flores MD - 4:58 PM PDT [facility] [address] [place] [id number] OFFICE NOTE CARO FLORES MD Patient: ALINE WHITLEY Admitting: MR #: [id number] LOC: PT TYPE: Adm Date: 07/16/2015 : 1955 Aline returns today for followup of her right upper extremity symptomatology. She has undergone an electrodiagnostic evaluation under the care of Dr. Simmons at the [facility] and was found to have moderate carpal [...] Transcribed on 07/17/2015 11:51:58 by damian job# [id number] Confirmation #: [id number] cc: LANA MELCHOR MD documented in this encounter Plan of Treatment Not on filedocumented as of this encounter Visit Diagnoses + + | Diagnosis | + + | Carpal tunnel syndrome of right wrist - Primary Carpal tunnel syndrome | + + documented in this encounter
--- OUTSIDE RECORDS SUMMARY | ~2019-09-02 | XMS | Encounter Summary ---
Demographics + + + | Address | [address] | | | [place] [address] | + + + | Home Phone [...] | Author | [facility] | | | and Keshawnana | + + + | Organization | [facility] | | | and Keshawnana | + + + | Address | Unknown | + + + | Phone | Unavailable | + + + Support + + + + + | Name | Relationship | Address | Phone | + + + + + | Zoran Whitley | ECON | [address] | | | | | [id number], [place] | | | | | [address] | | + + + + + | Roseann Walker | ECON | [place] | | | | | [address] | | + + + + + Care Team Providers + +------+ + | Care Hand Hardener Name | Role | Phone | + [...] | | | pain Right | [address] | [address] | | | | | wrist pain | [address] | [address] | | | | | | [place], | [place] | | | | | | [place] [address] | [address] Phone: | | | | | | Phone: | [phone] | | | | | | [phone] | Fax: | | | | | | Fax: | [phone] | | | | | | [phone] | | +--------+--------+ + + + + Encounter Details +--------+---------+ + + + | Date | Type | Department | Care Team | Description | +--------+---------+ + + + | 05/11/ | Office | [facility] | Ramon Albarado | Carpal tunnel | | 2016 | Visit | ORTHOPEDIC SURGERY | MD Mehul [address] [place] [address] | syndrome of right | | | | [address] [facility] | [place], [place] | wrist (Primary Dx) | | | | [place], [place] | [address] | | | | | [address] | | | | | | [phone] | | | +--------+---------+ + + + [...] + documented in this encounter Progress Notes Ramon Albarado MD - 05/11/2015 6:07 PM PSTSee soap note [id number].Electronically sign ed by Ramon Albarado MD at 05/11/2015 6:07 PM PST[facility] - 6 6:06 PM PST [facility] ORTHOPEDIC SURGERY [address] [place] [address] [id number] OFFICE NOTE RAMON ALBARADO MD Patient: LESLYE WHITLEY Admitting: MR #: [id number] LOC: PT TYPE: Adm Date: 05/11/2015 : 1955 IDENTIFICATION: Leslye Whitley is a 60-year-old female who works for [employer]. She resides in [place], [place]. She sees Morgan Conner for primary care. CHIEF COMPLAINT: Right hand pain, numbness and tingling. HISTORY: Leslye states that she has a several-month history of gradually increasing nu mbness, pain and tingling in the right hand involving the thumb, index, and long fingers. She does not recall a specific injury. She has been referred to our office for evaluation and care of this problem. She was seen in the emergency room at [facility] on the day after Davin, 04/25/2015 and felt to have a nerve [...] carpal tunnel syndrome. ADVICE: We will refer Leslye for an urgent electrodiagnostic evaluation of her right u pper extremity. We will see her back in our office for a followup evaluation. It is likel y that she will require carpal tunnel release in right upper extremity. In the meantime, katina guevara have given her patient educational material regarding carpal tunnel syndrome. RAMON ALBARADO MD Dictated by RAMON ALBARADO MD 05/11/2015 18:06:50 Transcribed on 05/12/2015 08:35:31 by tms job# [id number] Confirmation #: [id number] cc: MORGAN CONNER MD documented in this encounter Plan of Treatment Not on filedocumented as of this encounter Visit Diagnoses + + | Diagnosis | + + | Carpal tunnel syndrome of right wrist - Primary Carpal tunnel syndrome | + + documented in this encounter
--- OUTSIDE RECORDS SUMMARY | ~2019-09-02 | XMS | Encounter Summary ---
Demographics + + + | Address | [address] | | | [place] [address] | + + + | Home Phone [...] | [facility] | | | and Keshawnana | + + + | Organization | [facility] | | | and Keshawnana | + + + | Address | Unknown | + + + | Phone | Unavailable | + + + Support + + + + + | Name | Relationship | Address | Phone | + + + + + | Zoran Whitley | ECON | [address] | | | | | [id number], [place] | | | | | [address] | | + + + + + | Roseann Walker | ECON | [place] | | | | | [address] | | + + + + + Care Team Providers + +------+ + | Care Superintendent Custodian Janitor Name | Role | Phone | + +------+ + PCP | Unavailable | + +------+ + Encounter Details +--------+ + + + + | Date | Type | Department | Care Team | Description | +--------+ + + + + | 11/26/ | Orders Only | [facility] | Provider, | | | 2018 | | SYSTEM GENERIC OP | MD [address] | | | | | [address]VERSION [address] | [place]. [place] | | | | | [address] [place], [place] | [place] [address] | | | | | [address] | | | | | | [phone] | | | +--------+ + + + [...]
--- OUTSIDE RECORDS SUMMARY | ~2019-09-02 | XMS | Encounter Summary ---
Demographics + + + | Address | [address] | | | [place] [address] | + + + | Home Phone [...] | [facility] | | | and Keshawnana | + + + | Organization | [facility] | | | and Keshawnana | + + + | Address | Unknown | + + + | Phone | Unavailable | + + + Support + + + + + | Name | Relationship | Address | Phone | + + + + + | Zoran Whitley | ECON | [address] | | | | | [id number], [place] | | | | | [address] | | + + + + + | Roseann Walker | ECON | [place] | | | | | [address] | | + + + + + Care Team Providers + +------+ + | Care Regulatory Attorney Name | Role | Phone | [...] | | | | [address] | [place] [address] | | | | | [place], [place] | [phone] | | | | | [address] | | | | | | [phone] | | | +--------+ + + + [...] TR Vmax: | | | 2.34 m/s Product Management Consultant: FALGUNI Authenticated by: Obie Chávez | | | Report Date/Time: 11-11-2016 06:30:59 | | + + + + ---------+ | Procedure Note | + ---------+ | Jacobo Haider Conversion - 12/20/2018 6:47 PM PDT Patient Name: Austen Whitley of | | : 1955 Performing Physician: Obie | | [place] INDICATIONS------ | | -----Dyspnea CONCLUSIONS 1. The [...] cmLVIDd: 3.94 cmLVPWd: 0.91 cmLVOT Area: 3.04 lm9AVVV Diam: 1.96 | | cm%FS: 34.07 %EF(Teich): [...] | | (A-L): 19.69 ml/m2LAAs A2C: 16.50 gu1DGJEF A-L A2C: 43.31 mlLALs A2C: 5.34 | | cmLAAs A4C: 16.36 lv8JVEYO A-L A4C: 39.12 mlLALs A4C: 5.80 cmRAAs: 10.82 | | ry4IKXQF A-L: 22.52 mlRAESV MOD: 21.44 mlRALs: 4.41 cmTAPSE: 2.46 cmAV maxPG: | | 13.17 mmHgAV meanP.06 mmHgAV Vmax: 1.81 m/Stephie Vmean: 1.14 m/Stephie VTI: 33.72 | | cmAVA Vmax: 1.90 cm2AVA (VTI): 2.15 rz1VGZJ Vmax: 0.00 cm2/m2AVAI (VTI): 0.00 | | cm2/m2LVOT maxP.14 mmHgLVOT meanP.74 mmHgLVSI Dopp: 33.37 ml/m2LVSV Dopp: | | 72.76 mlLVOT Vmax: 1.13 m/sLVOT Vmean: 0.78 m/sLVOT VTI: 23.92 cmMV A Jose: | | 0.74 m/sMV DecT: 242.35 msMV E Jose: 0.78 m/sMV E/A Ratio: 1.05MV PHT: 70.28 | | msMVA By PHT: 3.13 pa7Xbvohe e': 0.09 m/sSeptal E/e': 7.91Lateral e': 0.10 | | m/sLateral E/e': 7.70RAP: 5 mmHgRVSP: 27.08 mmHgTR maxP.08 mmHgTR Vmax: | | 2.34 m/s Product Management Consultant: ANNETTAuthenticated by: Obie Corrales Date/Time: 11-11-2016 | [...] |TR Vmax: 2.34 m/s | | | |Product Management Consultant: FALGUNI | |Authenticated by: Obie Chávez | [...]
--- OUTSIDE RECORDS SUMMARY | ~2019-09-02 | XMS | Encounter Summary ---
Demographics + + + | Address | [address] | | | [place] [address] | + + + | Home Phone [...] [facility] | | | and Keshawnana | + + + | Organization | [facility] | | | and Keshawnana | + + + | Address | Unknown | + + + | Phone | Unavailable | + + + Support + + + + + | Name | Relationship | Address | Phone | + + + + + | Zoran Whitley | ECON | [address] | | | | | [id number], [place] | | | | | [address] | | + + + + + | Roseann Walker | ECON | [place] | | | | | [address] | | + + + + + Care Team Providers + +------+ + | Care Senior Product Designer Name | Role | Phone | + [...] + + | 12/06/ | Office | [facility] | Caro Flores | S/Marcel orthopedic | | 2016 | Visit | ORTHOPEDIC SURGERY | MD Mehul [address] [place] [address] | surgery, follow-up | | | | [address] [place] [address] | [place], [place] | exam (Primary Dx) | | | | [place], [place] | [address] | | | | | [address] | | | | | | [phone] | | | +--------+---------+ + + + [...] Caro Flores MD - 12/07/2015 8:56 AM PDTIgor mathur note [id number].Electronically sign ed by Caro Flores MD at 12/07/2015 8:56 AM Caro Gamez MD - 8:56 AM PDT [facility] ORTHOPEDIC SURGERY [address] [place] [address] [id number] OFFICE NOTE CARO FLORES MD Patient: ALINE WHITLEY Admitting: MR #: [id number] LOC: PT TYPE: Adm Date: 12/07/2015 : [...] of motion of the fingers with good labor gang supervisor strength. ADVICE: Overall, Aline has done well. [...] Transcribed on 12/08/2015 09:24:15 by damian job# [id number] Confirmation #: [id number] cc: LANA MELCHOR DO documented in this encounter Plan of Treatment Not on filedocumented as of this encounter Visit Diagnoses + + | Diagnosis | + + | S/P orthopedic surgery, follow-up exam - Primary Follow-up examination, following | | other surgery | + + documented in this encounter
--- OUTSIDE RECORDS SUMMARY | ~2019-09-02 | XMS | Encounter Summary ---
Demographics + + + | Address | [address] | | | [place] [address] | + + + | Home Phone [...] | Author | [facility] | | | and Keshawnana | + + + | Organization | [facility] | | | and Keshawnana | + + + | Address | Unknown | + + + | Phone | Unavailable | + + + Support + + + + + | Name | Relationship | Address | Phone | + + + + + | Zoran Whitley | ECON | [address] | | | | | [id number], [place] | | | | | [address] | | + + + + + | Roseann Walker | ECON | [place] | | | | | [address] | | + + + + + Care Team Providers + +------+ + | Care Dish Machine Operator Name | Role | Phone [...] + + | 12/07/ | Emergency | [facility] | Milagro | Fecal impaction in | | 2014 | | [facility] | Anjum Martinez MD [address] | rectum (HCC) | | | | CENTER [address] [place] | [address] [facility] | (Primary Dx) | | | | [place] | [place] [address] | | | | | [address] | [phone] | | | | | [phone] | | | +--------+ + + + [...] primary provider, below is a list of General acute hospital al group providers currently accepting new patients Primary Care Accepting New Patients 12/07/2014 Dr. Anjum Abraham Family Medicine Scheduling Special interest in geriatrics. Dr. Luigi Tena Family Medicine Scheduling Dr. Dusty Snider Family Medicine Obstetrics Scheduling Full scope family medicine- including obstetrics, pediatrics and adult medicine. PRUDENCE Martinez Family Medicine Scheduling Special interest in OB Care, Pediatrics [address] [place] [address] AttachmentsThe following attachments cannot be sent through Care Everywhere.FECAL IMPACTION , TREATED (GAMBIAN)CONSTIPATION (ADULT) (GAMBIAN)documented in this encounter Medications at Time of [...] + + | Performing | Address | City/State/[facility] | Phone Number | | Organization [...]
--- OUTSIDE RECORDS SUMMARY | ~2019-09-02 | XMS | Encounter Summary ---
Demographics + + + | Address | [address] | | | [place] [address] | + + + | Home Phone [...] | Author | [facility] | | | and Keshawnana | + + + | Organization | [facility] | | | and [place]hawnana | + + + | Address | Unknown | + + + | Phone | Unavailable | + + + Support + + + + + | Name | Relationship | Address | Phone | + + + + + | Zoran Whitley | ECON | [address] | | | | | [id number], [place] | | | | | [address] | | + + + + + | Roseann Walker | ECON | [place] | | | | | [address] | | + + + + + Care Team Providers + +------+ + | Care Beveler Name | Role | Phone | + [...] | | [address] | [place] [address] | | | | | [place] [address] | | | | | | [phone] | | | +--------+ + + + [...] for comparison only - no result from [facility]. | | + + + + +---------+ + + | Performing | Address | City/State/Zipcode | Phone Number | | Organization | | | | + +---------+ + + | [facility] | | | | + +---------+ + + documented in this encounter Visit Diagnoses Not on filedocumented in this encounter"
--- OUTSIDE RECORDS SUMMARY | ~2019-09-02 | XMS | Encounter Summary ---
Demographics + + + | Address | [address] | | | [place] [address] | + + + | Home Phone | | + + + | Preferred Language | Unknown | + + + | Marital Status | | + + + | Quaker Affiliation | Unknown | + + + | Race | Unknown | + + + | Ethnic Group | Unknown | + + + Author + + + | Author | [facility] | | | and Keshawnana | + + + | Organization | [facility] | | | and [place]hawnana | + + + | Address | Unknown | + + + | Phone | Unavailable | + + + Support + + + + + | Name | Relationship | Address | Phone | + + + + + | Zoran Whitley | ECON | [address] | | | | | [id number], [place] | | | | | [address] | | + + + + + | Roseann Walker | ECON | [place] | | | | | [address] | | + + + + + Care Team Providers + +------+ + | Care Dump Motor Operator Name | Role | Phone | [...] | | | | | | [place] [address] | [address] Phone: | | | | | | Phone: | [phone] | | | | | | [phone] | Fax: | | | | | | Fax: | [phone] | | | | | | [phone] | | +--------+--------+ + + + + Encounter Details +--------+---------+ + + + | Date | Type | Department | Care Team | Description | +--------+---------+ + + + | 05/11/ | Office | [facility] | Ramon Albarado | Carpal tunnel | | 2016 | Visit | ORTHOPEDIC SURGERY | MD Mehul [address] [place] [address] | syndrome of right | | | | [address] [facility] | [place], [place] | wrist (Primary Dx) | | | | [place], [place] | [address] | | | | | [address] | | | | | | [phone] | | | +--------+---------+ + + + [...] - 05/11/2015 6:07 PM PSTSee soap note [id number].Electronically sign ed by Ramon Albarado MD at 05/11/2015 6:07 PM PSTSaint Mark'S Medical CenterRamon noonan MD - 6 6:06 PM PST [facility] ORTHOPEDIC SURGERY [address] [place] [address] [phone] OFFICE NOTE RAMON ALBARADO MD Patient: LESLYE WHITLEY Admitting: MR #: [id number] LOC: PT TYPE: Adm Date: 05/11/2015 : 1955 IDENTIFICATION: Leslye Whitley is a 60-year-old female who works for [employer]. She resides in [place], [place]. She sees Morgan Conner for primary [...] was seen in the emergency room at [facility] on the day after Davin, 04/25/2015 and [...] Transcribed on 05/12/2015 08:35:31 by tms job# [id number] Confirmation #: [id number] cc: MORGAN CONNER MD documented in this encounter Plan of Treatment Not on filedocumented as of this encounter Visit Diagnoses + + | Diagnosis | + + | Carpal tunnel syndrome of right wrist - Primary Carpal tunnel syndrome | + + documented in this encounter
--- OUTSIDE RECORDS SUMMARY | ~2019-09-02 | XMS | Encounter Summary ---
Demographics + + + | Address | [address] | | | [place] [address] | + + + | Home Phone [...] | Author | [facility] | | | and Keshawnana | + + + | Organization | [facility] | | | and Keshawnana | + + + | Address | Unknown | + + + | Phone | Unavailable | + + + Support + + + + + | Name | Relationship | Address | Phone | + + + + + | Zoran Whitley | ECON | [address] | | | | | [id number], [place] | | | | | [address] | | + + + + + | Roseann Walker | ECON | [place] | | | | | [address] | | + + + + + Care Team Providers + +------+ + | Care Ski Top Trimmer Name | Role | Phone | [...] + | 12/06/ | Office | [facility] | Caro Flores | S/Marcel orthopedic | | 2016 | Visit | ORTHOPEDIC SURGERY | MD Mehul [address] [place] [address] | surgery, follow-up | | | | [address] [place] [address] | [place], [place] | exam (Primary Dx) | | | | [place], [place] | [address] | | | | | [address] | | | | | | [phone] | | | +--------+---------+ + + + [...] - 12/07/2015 8:56 AM PDTIgor mathur note [id number].Electronically sign ed by Caro Flores MD at 12/07/2015 8:56 AM Caro Gamez MD - 8:56 AM PDT [facility] ORTHOPEDIC SURGERY [address] [address] [id number] OFFICE NOTE CARO FLORES MD Patient: ALINE WHITLEY Admitting: MR #: [id number] LOC: PT TYPE: Adm Date: 12/07/2015 : [...] of motion of the fingers with good ex assistant/program director strength. ADVICE: Overall, Aline has done well. [...] Transcribed on 12/08/2015 09:24:15 by damian job# [id number] Confirmation #: [id number] cc: LANA MELCHOR DO documented in this encounter Plan of Treatment Not on filedocumented as of this encounter Visit Diagnoses + + | Diagnosis | + + | S/P orthopedic surgery, follow-up exam - Primary Follow-up examination, following | | other surgery | + + documented in this encounter
--- OUTSIDE RECORDS SUMMARY | ~2019-09-02 | XMS | Encounter Summary ---
Demographics + + + | Address | [address] | | | [place] [address] | + + + | Home Phone [...] | Author | [facility] | | | and Keshawnana | + + + | Organization | [facility] | | | and Keshawnana | + + + | Address | Unknown | + + + | Phone | Unavailable | + + + Support + + + + + | Name | Relationship | Address | Phone | + + + + + | Zoran Whitley | ECON | [address] | | | | | [id number], [place] | | | | | [address] | | + + + + + | Roseann Walker | ECON | [place] | | | | | [address] | | + + + + + Care Team Providers + +------+ + | Care Breaker Operator Name | Role | Phone | [...] | | Pulmonology | (dyspnea on | [address] | [address] | | | | | exertion) | [address] | [place], | | | | | Procedures | [place], | [place] [address] | | | | | F/U | [place] [address] | Phone: | | | | | | Phone: | [phone] | | | | | | [phone] | Fax: | | | | | | Fax: | [phone] | | | | | | [phone] | | +--------+--------+ + + + + Encounter Details +--------+---------+ + + + | Date | Type | Department | Care Team | Description | +--------+---------+ + + + | 02/28/ | Office | [facility] | Duncan Bass, | Mild intermittent | | 2017 | Visit | PULMONARY [address] | MD [address] | asthma without | | | | [place], | [place], [place] | complication | | | | [place] [address] | [address] | | | | | [phone] | | | +--------+---------+ + + + [...] more than every 4 hours, contact your [facility] provider or seek immediate medical attention. If [...] not already have one, talk to your [facility] provider about developing a personalized "Asthma Action [...] turning ching or blue Date Last Reviewed: 04/01/201519997733-7827 [employer] [place] [address], [place] [address]. All righ ts reserved. This information is not intended as a substitute for professional medical care. Always follow your healthcare professional's instructions. documented in this encounter Progress Notes Duncan Bass MD - 02/28/2017 3:30 PM PDTFormatting of this note might be different f rom the original. Pulmonary Clinic Follow Up 02/28/2017 HPI lAine Whitley is a 62 y.o. female patient [...] breath were to develop. CC: Morgan Conner, Tdocumented in this encounter Plan of Treatment Not on filedocumented as of this encounter Visit Diagnoses + + | Diagnosis | + + | Mild intermittent asthma without complication Unspecified asthma | + + documented in this encounter
--- OUTSIDE RECORDS SUMMARY | ~2019-09-02 | XMS | Encounter Summary ---
Demographics + + + | Address | [address] | | | [place] [address] | + + + | Home Phone [...] + | Author | [facility] | | | and Keshawnana | + + + | Organization | [facility] | | | and Keshawnana | + + + | Address | Unknown | + + + | Phone | Unavailable | + + + Support + + + + + | Name | Relationship | Address | Phone | + + + + + | Zoran Whitley | ECON | [address] | | | | | [id number], [place] | | | | | [address] | | + + + + + | Roseann Walker | ECON | [place] | | | | | [address] | | + + + + + Care Team Providers + +------+ + | Care Auto Vinyl Top Installer Name | Role | Phone | [...] | | [address] | [place] [address] | | | | | [place] [address] | | | | | | [phone] | | | +--------+ + + + [...]
--- OUTSIDE RECORDS SUMMARY | ~2019-09-02 | XMS | Encounter Summary ---
Demographics + + + | Address | [address] | | | [place] [address] | + + + | Home Phone [...] Author | [facility] | | | and Keshawnana | + + + | Organization | [facility] | | | and Keshawnana | + + + | Address | Unknown | + + + | Phone | Unavailable | + + + Support + + + + + | Name | Relationship | Address | Phone | + + + + + | Zoran Whitley | ECON | [address] | | | | | [id number], [place] | | | | | [address] | | + + + + + | Roseann Walker | ECON | [place] | | | | | [address] | | + + + + + Care Team Providers + +------+ + | Care Imaging Services Director Name | Role | Phone | + +------+ + PCP | Unavailable | + +------+ + Encounter Details +--------+ + + + + | Date | Type | Department | Care Team | Description | +--------+ + + + + | 06/08/ | Hospital | [facility] | Morgan Woo MD | | | 2011 | Encounter | MED CTR XRAY [address] | [address] [place] | | | | | [place] | [address] [place], | | | | | [place] [address] | [place] [address] | | | | | [phone] | [phone] | | | | | | | [...] Performed At | + + + | [facility] Diagnostic Imaging Department | [facility] | | [address] [facility] | [facility] | | UNENHANCED CT PARANASAL SINUSES: [...] Transcribed | | | Date/Time: 06/08/2011 14:15 Core Microarchitect: | | | <Electronically Signed by Neftaly Samuel MD> 06/08/11 213 | | + + + + + | Procedure Note | + + | Vitaly, Rad Conversion - 06/07/2013 4:42 PM [facility] | | Diagnostic Imaging Department | | [address] [facility] | | | | | | [...] | Transcribed Date/Time: 06/08/2011 14:15 | | Core Microarchitect: | | <Electronically Signed by Neftaly Samuel [...]
--- OUTSIDE RECORDS SUMMARY | ~2019-09-02 | XMS | Encounter Summary ---
Demographics + + + | Address | [address] | | | [place] [address] | + + + | Home Phone [...] | [facility] | | | and Keshawnana | + + + | Organization | [facility] | | | and Keshawnana | + + + | Address | Unknown | + + + | Phone | Unavailable | + + + Support + + + + + | Name | Relationship | Address | Phone | + + + + + | Zoran Whitley | ECON | [address] | | | | | [id number], [place] | | | | | [address] | | + + + + + | Roseann Walker | ECON | [place] | | | | | [address] | | + + + + + Care Team Providers + +------+ + | Care Railroad Car Cleaner Name | Role | Phone | + +------+ + PCP | Unavailable | + +------+ + Encounter Details +--------+ + + + + | Date | Type | Department | Care Team | Description | +--------+ + + + + | 08/14/ | Hospital | [facility] | Russ, | VIR HEP NEC W/O COMA | | 2003 | Encounter | [facility] | MD Uma [address] | [address] HEP C [facility] ([facility]) | | | | CLINICAL DECISION | Kaitlynn [place] | | | | | [address] | [place] [address] | | | | | [place], [place] | [phone] | | | | | [address] | | | | | | [phone] | | | +--------+ + + + [...]
--- OUTSIDE RECORDS SUMMARY | ~2019-09-02 | XMS | Encounter Summary ---
Demographics + + + | Address | [address] | | | [place] [address] | + + + | Home Phone | | + + + | Preferred Language | Unknown | + + + | Marital Status | | + + + | Jainism Affiliation | Unknown | + + + | Race | Unknown | + + + | Ethnic Group | Unknown | + + + Author + + + | Author | [facility] | | | and Keshawnana | + + + | Organization | [facility] | | | and Keshawnana | + + + | Address | Unknown | + + + | Phone | Unavailable | + + + Support + + + + + | Name | Relationship | Address | Phone | + + + + + | Zoran Whitley | ECON | [address] | | | | | [id number], [place] | | | | | [address] | | + + + + + | Roseann Walker | ECON | [place] | | | | | [address] | | + + + + + Care Team Providers + +------+ + | Care Cell Tower Climber Name | Role | Phone | + +------+ + PCP | Unavailable | + +------+ + Encounter Details +--------+ + + + + | Date | Type | Department | Care Team | Description | +--------+ + + + + | 06/26/ | Hospital | [facility] | | | | 2007 | Encounter | MED CTR XRAY [address] | | | | | | [address] | | | | | | [place] [address] | | | | | | [phone] | | | +--------+ + + + [...]
--- OUTSIDE RECORDS SUMMARY | ~2019-09-02 | XMS | Encounter Summary ---
Demographics + + + | Address | [address] | | | [place] [address] | + + + | Home Phone [...] Author | [facility] | | | and Keshawnana | + + + | Organization | [facility] | | | and Keshawnana | + + + | Address | Unknown | + + + | Phone | Unavailable | + + + Support + + + + + | Name | Relationship | Address | Phone | + + + + + | Zoran Whitley | ECON | [address] | | | | | [id number], [place] | | | | | [address] | | + + + + + | Roseann Walker | ECON | [place] | | | | | [address] | | + + + + + Care Team Providers + +------+ + | Care Account Manager Employee Benefits Name | Role | Phone | + [...] | | [address] | [place] [address] | | | | | [place] [address] | | | | | | [phone] | | | +--------+ + + + [...]
--- OUTSIDE RECORDS SUMMARY | ~2019-09-02 | XMS | Encounter Summary ---
Demographics + + + | Address | [address] | | | [place] [address] | + + + | Home Phone [...] Author | [facility] | | | and Keshawnana | + + + | Organization | [facility] | | | and Keshawnana | + + + | Address | Unknown | + + + | Phone | Unavailable | + + + Support + + + + + | Name | Relationship | Address | Phone | + + + + + | Zoarn Whitley | ECON | [address] | | | | | [id number], [place] | | | | | [address] | | + + + + + | Roseann aWlker | ECON | [place] | | | | | [address] | | + + + + + Care Team Providers + +------+ + | Care Juice Mixer Name | Role | Phone | + +------+ + PCP | Unavailable | + +------+ + Encounter Details +--------+ + + + + | Date | Type | Department | Care Team | Description | +--------+ + + + + | 12/19/ | Emergency | [facility] | Reza Lira MD | Forehead contusion, | | 2017 | | [facility] | [address] | initial encounter; | | | | EMERGENCY CENTER | [place] [address] | Left shoulder | | | | [address] | [phone] | strain, initial | | | | [place], [place] | | encounter; | | | | [address] | | Fingernail injury, | | | | [phone] | | left, initial | | | [...] Conversion - 12/12/2018 11:52 PM PDT YOSELYN OLVERAOLGAVaibhav SHOULDER LEFT | | HISTORY:61 years. Female. [...] | or midline shift. Electronically signed by Brando Griggs DO on | | | 12/19/2016 10:32 PM | | + + + + + + | Narrative | Performed At | + + + | YOSELYN WHITLEY [address] HEAD WO [...] Conversion - 12/12/2018 11:52 PM PDT YOSELYN GONZALEZWIT1/[id number] years | | FemaleCT HEAD WO CONTRAST12/19/2016 [...]
--- OUTSIDE RECORDS SUMMARY | ~2019-09-02 | XMS | Encounter Summary ---
Demographics + + + | Address | [address] | | | [place] [address] | + + + | Home Phone | | + + + | Preferred Language | Unknown | + + + | Marital Status | | + + + | Samaritan Affiliation | Unknown | + + + | Race | Unknown | + + + | Ethnic Group | Unknown | + + + Author + + + | Author | [facility] | | | and Keshawnana | + + + | Organization | [facility] | | | and Keshawnana | + + + | Address | Unknown | + + + | Phone | Unavailable | + + + Support + + + + + | Name | Relationship | Address | Phone | + + + + + | Zoran Whitley | ECON | [address] | | | | | [id number], [place] | | | | | [address] | | + + + + + | Roseann Walker | ECON | [place] | | | | | [address] | | + + + + + Care Team Providers + +------+ + | Care Motion Picture Printer Name | Role | Phone | + [...] [address] | | | | | [place], | [place], [place] | | | | | [place] [address] | [address] | | | | | [phone] | | | +--------+ + + + [...]
--- OUTSIDE RECORDS SUMMARY | ~2019-09-02 | XMS | Encounter Summary ---
Demographics + + + | Address | [address] | | | [place] [address] | + + + | Home Phone [...] | [facility] | | | and Keshawnana | + + + | Organization | [facility] | | | and Keshawnana | + + + | Address | Unknown | + + + | Phone | Unavailable | + + + Support + + + + + | Name | Relationship | Address | Phone | + + + + + | Zoran Whitley | ECON | [address] | | | | | [id number], [place] | | | | | [address] | | + + + + + | Roseann Walker | ECON | [place] | | | | | [address] | | + + + + + Care Team Providers + +------+ + | Care Supervising Fire Marshal Name | Role | Phone | + +------+ + PCP | Unavailable | + +------+ + Encounter Details +--------+ + + + + | Date | Type | Department | Care Team | Description | +--------+ + + + + | 03/09/ | Hospital | [facility] | Morgan Woo MD | 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 | | [facility] | [facility] | | | | | | CENTER - | | | | | | LABORATORY | | + + + + + + | BUN | 11 | 7 - 18 mg/dL | [facility] | | [facility] | [facility] | | | | | | CENTER - | | | | | | LABORATORY | | + + + + + + | Creatinine | 0.95 | 0.60 - 1.30 | [facility] | | | | | mg/dL | [facility] | | | | | | MEDICAL | | | | | | CENTER - | | | | | | LABORATORY | | + + + + + + | eGFR if not | 60Comment: GLOMERULAR | >=60 | [facility] | | | | FILTRATION | mL/min/1.73m2 | [facility] | | | UKRAINIAN | RATE,ESTIMATED | | MEDICAL | | | | mL/min/1.40o7Zqph than | | CENTER - | | [...] [address] | [place] | [phone] | | [facility] | | [address] | | | - LABORATORY | | [...] MEDICAL | | | | | | [place] - | | | | | | [...] [address] | [place] | [phone] | | [facility] | | [address] | | | - LABORATORY | | [...] | B-12 | <145 | | [facility] | | | | pg/mLINDETERMINATE: | | [...] + | [facility] | [address] | [place] | [phone] | | [facility] | | [address] | | | - LABORATORY | | | | + + + + + documented in this encounter Visit Diagnoses + + | Diagnosis | + + | Benign neoplasm of tongue | + + documented in this encounter"
--- OUTSIDE RECORDS SUMMARY | ~2019-09-02 | XMS | Encounter Summary ---
Demographics + + + | Address | [address] | | | [place] [address] | + + + | Home Phone [...] | Author | [facility] | | | and Keshawnana | + + + | Organization | [facility] | | | and Keshawnana | + + + | Address | Unknown | + + + | Phone | Unavailable | + + + Support + + + + + | Name | Relationship | Address | Phone | + + + + + | Zoran Whitley | ECON | [address] | | | | | [id number], [place] | | | | | [address] | | + + + + + | Roseann Walker | ECON | [place] | | | | | [address] | | + + + + + Care Team Providers + +------+ + | Care Signal Person Name | Role | Phone | [...] + + | 03/15/ | Emergency | [facility] | Jeffrey Augustin | Lymphedema (Primary | | 2019 | | MED CTR EMERGENCY | MD Anjum [address] | Dx) | | | | [place] [address] | [address] [facility] | | | | | [place] | [place] [address] | | | | | [address] | [phone] | | | | | [phone] | | | +--------+ + + + [...] cannot be sent through Care Everywhere.Lymphedema (Eng [facility])Leg Swelling in Both Legs (Cypriot)Lymphedema, Managing (Cypriot)Oxycodone tablets or c apsules (Cypriot)documented in this encounter Medications at Time of [...] | | | N: | | | [id number] | | | [id number] | | | riteri | | | [...] | | | St. | | | Drifting | | | y | | | [...] | | | St. | | | Drifting | | | y | | | [...] | | | St. | | | Drifting | | | y | | | [...] Acuity | | | | | | [place] | | | | | | Health [...] | | | St. | | | Drifting | | | y | | | [...] | | | 2019 | | | [place] | | | | | | Health [...] | | | St. | | | Drifting | | | y H. | | | [place] | | | [place] | | | Emerge | | | ncy | | | Chief | | | Compla | | | int: | | | SHAKY | | | Sep | | | 1, | | | 2019 | | | [facility] | | | St. | | | Drifting | | | y H. | | [...] | | | St. | | | Drifting | | | y H. | | [...] | | | St. | | | Drifting | | | y H. | | [...] | | | St. | | | Drifting | | | y H. | | [...] | | | 2019 | | | [place] | | | | | | Health [...] | | | St. | | | Drifting | | | y H. | | [...] | | | St. | | | Drifting | | | y H. | | [...] MD | | | | | | Printed Circuit Board Drafter | | | al | | | [...] | | | N, | | | ROAD MACHINE OPERATOR-C | | | Nurse | [...] [address] | [place] | [phone] | | [facility] | | [address] | | | - LABORATORY | | [...] [address] | [place] | [phone] | | [facility] | | [address] | | | - LABORATORY | | [...] (H) | 60 - 106 mg/dL | [facility] | | | | | | [facility] | | | | | | MEDICAL | | | | | | CENTER - | | | | | | LABORATORY | | + + + + + + | BUN | 10 | 9 - 23 mg/dL | [facility] | | | | | | [facility] | | | | | | MEDICAL | | | | | | CENTER - | | | | | | LABORATORY | | + + + + + + | Creatinine | 0.77 | 0.55 - 1.02 | [facility] | | | | | mg/dL | [...] | | MEDICAL | | | | mL/min/1.63i9Jqas than | | CENTER - | | [...] | | Total | | | [facility] | | [...] [address] | [place] | [phone] | | [facility] | | [address] | | | - LABORATORY | | [...] [address] | [place] | [phone] | | [facility] | | [address] | | | - LABORATORY | | [...] ordering provider, | | | by the reserve operator, immediately following the exam. Dictated | | [...] to the ordering provider, by the | |reserve operator, immediately following the exam. | | | [...] | | | | | Patient Address: [address] | | | | | | | [address];[place] [address], | | | | | | + + + +------+---+---+ +---+---+ | | | +---+---+ documented in this encounter
--- OUTSIDE RECORDS SUMMARY | ~2019-09-02 | XMS | Encounter Summary ---
Demographics + + + | Address | [address] | | | [place] [address] | + + + | Home Phone [...] | [facility] | | | and Keshawnana | + + + | Organization | [facility] | | | and Keshawnana | + + + | Address | Unknown | + + + | Phone | Unavailable | + + + Support + + + + + | Name | Relationship | Address | Phone | + + + + + | Zoran Whitley | ECON | [address] | | | | | [id number], [place] | | | | | [address] | | + + + + + | Roseann Monolongsahil | ECON | [place] | | | | | [address] | | + + + + + Care Team Providers + +------+ + | Care Spreader Name | Role | Phone | + [...] | | | CENTER [address] | [place] | | | | | [place] | [address] | | | | | [address] | | | | | | [phone] | Reza Pittman, | | | | | | [address] | | | | | | [place], [place] | | | | | | [address] | | | | | | | [...] | | Note - | | | Erasom, | | | Lab In | | [...] | | | N: | | | [id number] | | | [id number] | | | riteri | | | [...] | | | St. | | | [place] | | | y | | | [...] | | | St. | | | [place] | | | y | | | [...] | | | St. | | | [place] | | | y | | | [...] | | | St. | | | [place] | | | y | | | [...] | | | St. | | | [place] | | | y H. | | [...] | | | St. | | | [place] | | | y H. | | [...] | | | St. | | | [place] | | | y H. | | [...] | | | St. | | | [place] | | | y H. | | [...] | | | St. | | | [place] | | | y H. | | [...] | | | St. | | | [place] | | | y H. | | [...] | | | St. | | | [place] | | | y H. | | [...] | | | St. | | | [place] | | | y H. | | [...] | | | St. | | | [place] | | | y H. | | [...] | | | St. | | | [place] | | | y H. | | [...] | | | 2018 | | | [facility] | | | | | | Health [...] | | | St. | | | [place] | | | y H. | | [...] MD | | | | | | Internal Medicine Hospitalist | | | al | | | [...] | [facility] | [address] | [place] | [phone] | | [facility] | | [address] | | | - LABORATORY | | [...] | [facility] | [address] | [place] | [phone] | | [facility] | | [address] | | | - LABORATORY | | [...] [address] | [place] | [phone] | | [facility] | | [address] | | | - LABORATORY | | [...] [address] | [place] | [phone] | | [facility] | | [address] | | | - LABORATORY | | [...] AND MEDICAL CENTER | | | | 2019. [...] + | [facility] | [address] | [place] | [phone] | | [facility] | | [address] | | | - LABORATORY | | [...] | mL/min/1.73m2 | [facility] | | | TURKISH | RATE,ESTIMATED | | MEDICAL | | | | mL/min/1.17r0Mhri than | | CENTER - | | [...] [address] | [place] | [phone] | | [facility] | | [address] | | | - LABORATORY | | [...] + | [facility] | [address] | [place] | [phone] | | [facility] | | [address] | | | - LABORATORY | | [...] | | | | | Intravenous, ONCE, [facility] 11/01/18 at | | PM PDT | | | | | 1620, For 1 dose | | | | | | + +--------+ +------+------+------+ +---+---+ | | | +---+---+ documented in this encounter
--- OUTSIDE RECORDS SUMMARY | ~2019-09-02 | XMS | Encounter Summary ---
Demographics + + + | Address | [address] | | | [place] [address] | + + + | Home Phone | | + + + | Preferred Language | Unknown | + + + | Marital Status | | + + + | Nondenominational Affiliation | Unknown | + + + | Race | Unknown | + + + | Ethnic Group | Unknown | + + + Author + + + | Author | [facility] | | | and Keshawnana | + + + | Organization | [facility] | | | and Keshawnana | + + + | Address | Unknown | + + + | Phone | Unavailable | + + + Support + + + + + | Name | Relationship | Address | Phone | + + + + + | Zoran Whitley | ECON | [address] | | | | | [id number], [place] | | | | | [address] | | + + + + + | Roseann Monolongsahil | ECON | [place] | | | | | [address] | | + + + + + Care Team Providers + +------+ + | Care Poultry Farm Manager Name | Role | Phone | [...] | | | | | | [place] [address] | [address] Phone: | | | | | | Phone: | [phone] | | | | | | [phone] | Fax: | | | | | | Fax: | [phone] | | | | | | [phone] | | +--------+--------+ + + + + Encounter Details +--------+---------+ + + + | Date | Type | Department | Care Team | Description | +--------+---------+ + + + | 01/18/ | Office | [facility] | Quirino Olson | Right knee pain, | | 2017 | Visit | ORTHOPEDIC SURGERY | [address] | unspecified | | | | [address] [facility] | [facility] | chronicity (Primary | | | | [place], [place] | [place] [address] | Dx); Primary | | | | [address] | [phone] | osteoarthritis of | | | | [phone] | | right knee; Acute | | [...]
--- OUTSIDE RECORDS SUMMARY | ~2019-09-02 | XMS | Encounter Summary ---
Demographics + + + | Address | [address] | | | [place] [address] | + + + | Home Phone [...] | Author | [facility] | | | and Keshawnana | + + + | Organization | [facility] | | | and Keshawnana | + + + | Address | Unknown | + + + | Phone | Unavailable | + + + Support + + + + + | Name | Relationship | Address | Phone | + + + + + | Zoran Whitley | ECON | [address] | | | | | [id number], [place] | | | | | [address] | | + + + + + | Roseann Walker | ECON | [place] | | | | | [address] | | + + + + + Care Team Providers + +------+ + | Care Learning And Development Intern Name | Role | Phone | [...] + + | 04/25/ | Emergency [facility] | Reza Pittman, | Paresthesias in | | 2014 | | MED CTR EMERGENCY | MD [address] | right hand (Primary | | | | CENTER [address] | [place] | Dx); Acute wrist | | | | [place] | [address] | pain, right | | | | [address] | | | | | | [phone] | | | +--------+ + + + [...] cannot be sent through Care Everywhere.PARAESTHESIAS ( AZERBAIJANI)documented in this encounter Medications at Time of [...] + + | Performing | Address | City[facility]State[facility] | Phone Number | | Organization [...]
--- OUTSIDE RECORDS SUMMARY | ~2019-09-02 | XMS | Encounter Summary ---
Demographics + + + | Address | [address] | | | [place] [address] | + + + | Home Phone [...] + | Author | [facility] | | | and Keshawnana | + + + | Organization | [facility] | | | and Keshawnana | + + + | Address | Unknown | + + + | Phone | Unavailable | + + + Support + + + + + | Name | Relationship | Address | Phone | + + + + + | Zoran Whitley | ECON | [address] | | | | | [id number], [place] | | | | | [address] | | + + + + + | Roseann Walker | ECON | [place] | | | | | [address] | | + + + + + Care Team Providers + +------+ + | Care C 13 Catapult Operator Name | Role | Phone | [...] | | | | | Contrast | [place] | | | | | | | [place] | | | | | | | [address] | | +--------+--------+ + + + + [...] | [address] [place] | [place] [address] | | | | | [place] [address] | | | | | | [phone] | | | +--------+ + + + [...] for comparison only - no result from [facility]. | | + + + + +---------+ + + | Performing | Address | City/State/Zipcode | Phone Number | | Organization | | | | + +---------+ + + | [facility] | | | | + +---------+ + + documented in this encounter Visit Diagnoses Not on filedocumented in this encounter"
--- OUTSIDE RECORDS SUMMARY | ~2019-09-02 | XMS | Encounter Summary ---
Demographics + + + | Address | [address] | | | [place] [address] | + + + | Home Phone [...] + | Author | [facility] | | | and Keshawnana | + + + | Organization | [facility] | | | and Keshawnana | + + + | Address | Unknown | + + + | Phone | Unavailable | + + + Support + + + + + | Name | Relationship | Address | Phone | + + + + + | Zoran Whitley | ECON | [address] | | | | | [id number], [place] | | | | | [address] | | + + + + + | Roseann Walker | ECON | [place] | | | | | [address] | | + + + + + Care Team Providers + +------+ + | Care Prosthodontist/Educator Name | Role | Phone | + [...] | | | Procedures | [place], | [place] [address] | | | | | F/U | [place] [address] | Phone: | | | | | | Phone: | [phone] | | | | | | [phone] | Fax: | | | | | | Fax: | [phone] | | | | | | [phone] | | +--------+--------+ + + + + Encounter Details +--------+---------+ + + + | Date | Type | Department | Care Team | Description | +--------+---------+ + + + | 02/28/ | Office | [facility] | Duncan Bass, | Mild intermittent | | 2017 | Visit | PULMONARY [address] | MD [address] | asthma without | | | | [place], | [place], [place] | complication | | | | [place] [address] | [address] | | | | | [phone] | | | +--------+---------+ + + + [...] more than every 4 hours, contact your [place] healthcare provider or seek immediate medical attention. If [...] not already have one, talk to your [place] healthcare provider about developing a personalized "Asthma Action [...] turning ching or blue Date Last Reviewed: 04/01/201519993617-1930 [employer]. [address] [place] [address], [place] [address]. All righ ts reserved. This information is [...]
--- OUTSIDE RECORDS SUMMARY | ~2019-09-02 | XMS | Encounter Summary ---
Demographics + + + | Address | [address] | | | [place] [address] | + + + | Home Phone [...] + | Author | [facility] | | | and Keshawnana | + + + | Organization | [facility] | | | and Keshawnana | + + + | Address | Unknown | + + + | Phone | Unavailable | + + + Support + + + + + | Name | Relationship | Address | Phone | + + + + + | Zoran Whitley | ECON | [address] | | | | | [id number], [place] | | | | | [address] | | + + + + + | Roseann Monolongsahil | ECON | [place] | | | | | [address] | | + + + + + Care Team Providers + +------+ + | Care Bus Van Driver Name | Role | Phone | [...] | | | | CENTER [address] | [place] | Abdominal pain, | | | | [place], [place] | [address] | unspecified | | | | [address] | | abdominal location | | | | [phone] | | | +--------+ + + + [...] phone call by then. Follow up with [facility] provider as needed. Do not drink or drive while on the pain medication. AttachmentsThe following attachments cannot be sent through Care Everywhere.Ascites (Eng[place] h)Acetaminophen; Hydrocodone tablets or capsules (Surinamese)documented in this encounter Medications at Time of [...] | | | N: | | | [id number] | | | [id number] | | | riteri | | | [...] | | | St. | | | [place] | | | y | | | [...] | | | St. | | | [place] | | | y | | | [...] | | | St. | | | [place] | | | y | | | [...] | | | St. | | | [place] | | | y | | | [...] | | | St. | | | [place] | | | y H. | | | [place] | | | [place] | | | Emerge | | | ncy | | | Chief | | | Compla | | | int: | | | SHAKY | | | Sep | | | 1, | | | 2019 | | | [facility] | | | [facility] | | | [place] | | | y H. | | [...] | | | St. | | | [place] | | | y H. | | [...] | | | St. | | | [place] | | | y H. | | [...] | | | St. | | | [place] | | | y H. | | [...] | | | St. | | | [place] | | | y H. | | [...] | | | St. | | | [place] | | | y H. | | [...] | | | St. | | | [place] | | | y H. | | [...] | | | St. | | | [place] | | | y H. | | [...] | | | St. | | | [place] | | | y H. | | [...] | | | 2018 | | | [place] | | | | | | [facility] [...] | | | St. | | | [place] | | | y H. | | [...] MD | | | | | | Final Application Reviewer | | | al | | | [...] | | | N, | | | FLOOR POLISHER-C | | | Nurse | | | [...] | | | [id number] | | | [id number] | | | 09 | | | [...] + | [facility] | [address] | [place] | [phone] | | [facility] | | [address] | | | - LABORATORY | | [...] [address] | [place] | [phone] | | [facility] | | [address] | | | - LABORATORY | | [...] [address] | [place] | [phone] | | [facility] | | [address] | | | - LABORATORY | | [...] mL/min/1.73m2 | [facility] | | | TRISTANIAN | RATE,ESTIMATED | | MEDICAL | | | | mL/min/1.86p1Fqjn than | | CENTER - | | [...] + | [facility] | [address] | [place] | [phone] | | [facility] | | [address] | | | - LABORATORY | | [...] ST. | [address] | [place] | [phone] | | [facility] | | [address] | | | - LABORATORY | | [...] | | | | | Patient Address: [address] [place] [address] | | | | | | | [place] [address], | | | | | | + + + + +------+------+ +---+---+ | | | +---+---+ documented in this encounter
--- OUTSIDE RECORDS SUMMARY | ~2019-09-02 | XMS | Encounter Summary ---
Demographics + + + | Address | [address] | | | [place] [address] | + + + | Home Phone [...] | Author | [facility] | | | and Keshawnana | + + + | Organization | [facility] | | | and Keshawnana | + + + | Address | Unknown | + + + | Phone | Unavailable | + + + Support + + + + + | Name | Relationship | Address | Phone | + + + + + | Zoran Whitley | ECON | [address] | | | | | [id number], [place] | | | | | [address] | | + + + + + | Roseann Walker | ECON | [place] | | | | | [address] | | + + + + + Care Team Providers + +------+ + | Care Anhydrous Ammonia Production Supervisor Name | Role | Phone | [...] | | [address] | [place] [address] | | | | | [place] [address] | | | | | | [phone] | | | +--------+ + + + [...]
--- OUTSIDE RECORDS SUMMARY | ~2019-09-02 | XMS | Encounter Summary ---
Demographics + + + | Address | [address] | | | [place] [address] | + + + | Home Phone [...] | Author | [facility] | | | and Keshawnana | + + + | Organization | [facility] | | | and Keshawnana | + + + | Address | Unknown | + + + | Phone | Unavailable | + + + Support + + + + + | Name | Relationship | Address | Phone | + + + + + | Zoran Whitlye | ECON | [address] | | | | | [id number], [place] | | | | | [address] | | + + + + + | Roseann Walker | ECON | [place] | | | | | [address] | | + + + + + Care Team Providers + +------+ + | Care Child Care Name | Role | Phone | + [...] + + | 01/31/ | Emergency | [facility] | Reza Wynn, | Other ascites | | 2019 - | | MEDICAL CENTER | MD Maame Conway | (Primary Dx); | | | | EMERGENCY CENTER | [place] [address] | Generalized | | 02/01/ | | [address] | [phone] | abdominal pain; | | 2018 | | [place], [place] | | Autoimmune hepatitis | | | | [address] | | (HCC) | | | | [phone] | | | +--------+ + + + [...] be sent through Care Everywhere.Abdominal Pain, Adult (Citizen Of [place])Ascites (Citizen [place])documented in this encounter Medications at Time of [...] | | | MRN: | | | [id number] | | | [id number] | | | riteri | | | [...] | | | St. | | | [place] | | | y | | | [...] | | | St. | | | [place] | | | y | | | [...] | | | St. | | | [place] | | | y | | | [...] Acuity | | | | | | [place] | | | | | | Health [...] | | | St. | | | [place] | | | y | | | [...] | | | 2019 | | | [place] | | | | | | Health [...] | | | St. | | | [place] | | | y H. | | | [place] | | | [place] | | | Emerge | | | ncy | | | Chief | | | Compla | | | int: | | | SHAKY | | | Sep | | | 1, | | | 2019 | | | [facility] | | | [facility] | | | [place] | | | y H. | | [...] | | | St. | | | [place] | | | y H. | | [...] | | | St. | | | [place] | | | y H. | | [...] | | | St. | | | [place] | | | y H. | | [...] | | | St. | | | [place] | | | y H. | | [...] | | | St. | | | [place] | | | y H. | | [...] | | | St. | | | [place] | | | y H. | | [...] | | | 2018 | | | [place] | | | | | | Health [...] | | | St. | | | [place] | | | y H. | | [...] MD | | | | | | Addressing Machine Operator | | | al | [...] | | | N, | | | VITICULTURE TEACHER-C | | | Nurse | | | [...] | | LABORATORY | | | | [place]ora[place] [address] | | | | + + + + + + | RESULT | NO GROWTH 4 DAYS | | [facility] | | | | | | LABORATORY | | + + + + + + | RESULT | Testing performed at | | [facility] | | | | TCL, [address] [facility] | | LABORATORY | | | | [place], [place] | | | | | | [address]Raphqes: Testing | | | | | | performed at [facility], [address] | | | | | | [address] [place], [place], [place] | | | | | | [address] | | | | + + + + + + + + | Specimen | + + | Body Fluid - Ascitic | | fluid sample | | (specimen) | + + + + + + + | Performing | Address | City/State/Zipcode | Phone Number | | Organization | | | | + + + + + | [facility] | [address] | [place] [address] | [phone] | + + + + + Cell [...] + + + | BF RBC | <19444 | /mm3 | [facility] | | | [...] | | | Counted | performed at [facility];[address] | | LABORATORY | | | | [address];[place], [place] | | | | | | [id number] ON 02/01 | | | | | [...] | + + + + + | [facility] | [address] | [place] [address] | [phone] | + + + + + Urinalysis [...] - 1.030 | [facility] | | | [place], | | | LABORATORY | | | [...] | | | Oxalate | performed at [facility];[address] | | LABORATORY | | | Crystals, | [place] | | | | | Urine | [address] | | | | + + + [...] | + + + + + | [facility] | [address] | [place] [address] | [phone] | + + + + + Lipase (01/31/2019 9:42 PM PDT) + + + + + + | Component | Value | Ref Range | Performed | Pathologist | | | | | At | Signature | + + + + + + | Lipase | 66 (H)Comment: Testing | 12 - 53 U/L | KR | | | | performed at [facility];[address] | | LABORATORY | | | | [address];[place] | | | | | | [address] | | | | + + + + + + + + | Specimen | + + | Blood | + + + + + + + | Performing | Address | City/State/Zipcode | Phone Number | | Organization | | | | + + + + + | [facility] | [address] | [place] [address] | [phone] | + + + + + Comprehensive [...] | | | | | | MDRD [facility] traceable | | | | | | equation.Testing | | | | | | performed at [facility];[address] | | | | | | [facility];[place], [place] | | | | | | [address] | | | | + + + + + + + + | Specimen | + + | Blood | + + + + + + + | Performing | Address | City/State/Zipcode | Phone Number | | Organization | | | | + + + + + | [facility] | [address] [facility] | [place] [address] | [phone] | + + + + + CBC [...] 0.08Comment: Testing | 0.00 - 0.10 | [facility] | | | Absolute | performed at [facility];[address] | K/uL | LABORATORY | | | | [address];[place], [place] | | | | | | [address] | | | | + + + + + + + + | Specimen | + + | Blood | + + + + + + + | Performing | Address | City/State/Zipcode | Phone Number | | Organization | | | | + + + + + | [facility] | [address] | [place] [address] | [phone] | + + + + + documented [...] | | | | | Infiltration, ONCE, [facility] 01/31/19 | | PM PDT | | | | | at 2150, For 1 dose | | | | | | + + + +--------+------+------+ +---+---+ | | | +---+---+ + +-------+ +------+---+---+ | morphine injection 4 mg 4 mg, | Given | 02/01/20 | 4 mg | | | | Intravenous, ONCE, [facility] 01/31/19 at | | 19 10:25 | | | | | 2140, For 1 dose | | PM PDT | | | | + +-------+ +------+---+---+ +---+---+ | | | +---+---+ + +-------+ +------+---+---+ | morphine injection 4 mg 4 mg, | Given | 02/02/20 | 4 mg | | | | Intravenous, ONCE, [facility] 01/31/19 at | | 19 12:05 | | | | | 2320, For 1 dose | | AM PDT | | | | + +-------+ +------+---+---+ +---+---+ | | | +---+---+ documented in this encounter"
--- OUTSIDE RECORDS SUMMARY | ~2019-09-02 | XMS | Encounter Summary ---
Demographics + + + | Address | [address] | | | [place] [address] | + + + | Home Phone [...] | [facility] | | | and Keshawnana | + + + | Organization | [facility] | | | and Keshawnana | + + + | Address | Unknown | + + + | Phone | Unavailable | + + + Support + + + + + | Name | Relationship | Address | Phone | + + + + + | Zoran Whitley | ECON | [address] | | | | | [id number], [place] | | | | | [address] | | + + + + + | Roseann Walker | ECON | [place] | | | | | [address] | | + + + + + Care Team Providers + +------+ + | Care Product Safety Expert Name | Role | Phone | + [...] | | [address] | [place] [address] | | | | | [place] [address] | | | | | | [phone] | | | +--------+ + + + [...]
--- OUTSIDE RECORDS SUMMARY | ~2019-09-02 | XMS | Encounter Summary ---
Demographics + + + | Address | [address] | | | [place] [address] | + + + | Home Phone | | + + + | Preferred Language | Unknown | + + + | Marital Status | | + + + | Adventist Affiliation | Unknown | + + + | Race | Unknown | + + + | Ethnic Group | Unknown | + + + Author + + + | Author | [facility] | | | and Keshawnana | + + + | Organization | [facility] | | | and Keshawnana | + + + | Address | Unknown | + + + | Phone | Unavailable | + + + Support + + + + + | Name | Relationship | Address | Phone | + + + + + | Zoran Whitley | ECON | [address] | | | | | [id number], [place] | | | | | [address] | | + + + + + | Roseann Walker | ECON | [place] | | | | | [address] | | + + + + + Care Team Providers + +------+ + | Care Foxing Painter Name | Role | Phone | + +------+ + PCP | Unavailable | + +------+ + Encounter Details +--------+ + + + + | Date | Type | Department | Care Team | Description | +--------+ + + + + | 12/19/ | Emergency | [facility] | Reza Lira MD | Forehead contusion, | | 2017 | | [facility] | [address] | initial encounter; | | | | EMERGENCY CENTER | [place] [address] | Left shoulder | | | | [address] | [phone] | strain, initial | | | | [place], [place] | | encounter; | | | | [address] | | Fingernail injury, | | | | [phone] | | left, initial | | | [...] Conversion - 12/12/2018 11:52 PM PDT YOSELYN GONZALEZWIT1/[id number] years | | FemaleCT HEAD WO CONTRAST12/19/2016 [...]
--- OUTSIDE RECORDS SUMMARY | ~2019-09-02 | XMS | Encounter Summary ---
Demographics + + + | Address | [address] | | | [place] [address] | + + + | Home Phone [...] Author | [facility] | | | and Keshawnana | + + + | Organization | [facility] | | | and Keshawnana | + + + | Address | Unknown | + + + | Phone | Unavailable | + + + Support + + + + + | Name | Relationship | Address | Phone | + + + + + | Zoran Whitley | ECON | [address] | | | | | [id number], [place] | | | | | [address] | | + + + + + | Roseann Walker | ECON | [place] | | | | | [address] | | + + + + + Care Team Providers + +------+ + | Care Sheriffs Name | Role | Phone | + [...] | | [address] | [place] [address] | | | | | [place] [address] | | | | | | [phone] | | | +--------+ + + + [...]
--- OUTSIDE RECORDS SUMMARY | ~2019-09-02 | XMS | Encounter Summary ---
Demographics + + + | Address | [address] | | | [place] [address] | + + + | Home Phone [...] | Author | [facility] | | | and Keshawnana | + + + | Organization | [facility] | | | and Keshawnana | + + + | Address | Unknown | + + + | Phone | Unavailable | + + + Support + + + + + | Name | Relationship | Address | Phone | + + + + + | Zoran Whitley | ECON | [address] | | | | | [id number], [place] | | | | | [address] | | + + + + + | Roseann Walker | ECON | [place] | | | | | [address] | | + + + + + Care Team Providers + +------+ + | Care Leach Runner Name | Role | Phone | [...] | | | | s/ | [place] [address] | [place] [address] | | | | | alexk | Phone: | Phone: | | | | | faxing auth | [phone] | [phone] | | | | | Procedures | Fax: | Fax: | | | | | OFFICE | [phone] | [phone] | | | | | VISIT | | | | | | | REGULAR | | | +--------+--------+ + + + + Encounter Details +--------+---------+ + + + | Date | Type | Department | Care Team | Description | +--------+---------+ + + + | 03/09/ | Office | [facility] | Morgan Waters MD | Glossitis (Primary | | 2015 | Visit | OTOLARYNGOLOGY [address] | [address] [place] | Dx); Benign neoplasm | | | | [address] [address] | [address] [place], | of tongue | | | | [place] | [place] [address] | | | | | [address] | [phone] | | | | | [phone] | | | +--------+---------+ + + + [...] MD - 03/09/2015 11:32 AM PST [facility] OTOLARY[facility]OLOGY [address] [place] [address] OFFICE NOTE MORGAN WATERS MD Patient: LESLYE WHITLEY Admitting: MR #: [id number] LOC: PT TYPE: Adm Date: 03/09/2015 : [...] of probable thrush. 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 | | | | | | [facility] | | | | | | MEDICAL | | | | | | CENTER - | | | | | | LABORATORY | | + + + + + + | Creatinine | 0.95 | 0.60 - 1.30 | [place] | | | | | mg/dL | [facility] | | | | | | MEDICAL | | | | | | CENTER - | | | | | | LABORATORY | | + + + + + + | eGFR if not | 60Comment: GLOMERULAR | >=60 | [place] | | | | FILTRATION | mL/min/1.73m2 | [facility] | | | DANISH | RATE,ESTIMATED | | MEDICAL | | | | mL/min/1.22x7Vven than | | CENTER - | | [...] + | [facility] | [address] | [place] | [phone] | | [facility] | | [address] | | | - LABORATORY | | [...] + | [facility] | [address] | [place] | [phone] | | [facility] | | [address] | | | - LABORATORY | | [...] [address] | [place] | [phone] | | [facility] | | [address] | | | - LABORATORY | | | | + + + + + documented in this encounter Visit Diagnoses + + | Diagnosis | + + | Glossitis - Primary | + + | Benign neoplasm of tongue | + + documented in this encounter
--- OUTSIDE RECORDS SUMMARY | ~2019-09-02 | XMS | Encounter Summary ---
Demographics + + + | Address | [address] | | | [place] [address] | + + + | Home Phone [...] [facility] | | | and Keshawnana | + + + | Organization | [facility] | | | and Keshawnana | + + + | Address | Unknown | + + + | Phone | Unavailable | + + + Support + + + + + | Name | Relationship | Address | Phone | + + + + + | Zoran Whitley | ECON | [address] | | | | | [id number], [place] | | | | | [address] | | + + + + + | Roseann Walker | ECON | [place] | | | | | [address] | | + + + + + Care Team Providers + +------+ + | Care Cork Insulation Setter Name | Role | Phone | [...] | | [address] | [place] [address] | | | | | [place] [address] | | | | | | [phone] | | | +--------+ + + + [...]
--- OUTSIDE RECORDS SUMMARY | ~2019-09-02 | XMS | Encounter Summary ---
Demographics + + + | Address | [address] | | | [place] [address] | + + + | Home Phone [...] | [facility] | | | and Keshawnana | + + + | Organization | [facility] | | | and Keshawnana | + + + | Address | Unknown | + + + | Phone | Unavailable | + + + Support + + + + + | Name | Relationship | Address | Phone | + + + + + | Zoran Whitley | ECON | [address] | | | | | [id number], [place] | | | | | [address] | | + + + + + | Roseann Monolongsahil | ECON | [place] | | | | | [address] | | + + + + + Care Team Providers + +------+ + | Care Director Name | Role | Phone | [...] | | | CONSULT | [place], | [place] [address] | | | | | | [place] [address] | Phone: | | | | | | Phone: | [phone] | | | | | | [phone] | Fax: | | | | | | Fax: | [phone] | | | | | | [phone] | | +--------+--------+ + + + + Encounter Details +--------+---------+ + + + | Date | Type | Department | Care Team | Description | +--------+---------+ + + + | 01/30/ | Office | [facility] | Duncan Bass, | Shortness of breath | | 2017 | Visit | PULMONARY [address] | MD [address] | (Primary Dx); | | | | [place], | [place], [place] | Asthma, unspecified | | | | [place] [address] | [address] | asthma severity, | | | | [phone] | | unspecified whether | | | [...] ou have any questions. Talk to your emergency nurse regarding the use of this medicine in children. Special care may be needed. What side effects may I notice from receiving this medicine? Side effects that you should report to your doctor or health wound care center consultant as soon as p ossible: allergic reactions [...] attention (report to your doctor or health wound care center consultant if they continue or are bothersome): cough [...] this medicine? Tell your doctor or health wound care center consultant if your symptoms do not improve. Do [...] They [facility]. They have not completed pulmonary rehabilitation in [...] Tunnel Release; Surgeon: Ramon Stokes MD; Location: [facility] MAIN OR CHOLECYSTECTOMY HYSTERECTOMY endometriosis SINUS [...]
--- OUTSIDE RECORDS SUMMARY | ~2019-09-02 | XMS | Encounter Summary ---
Demographics + + + | Address | [address] | | | [place] [address] | + + + | Home Phone [...] + | Author | [facility] | | | and Keshawnana | + + + | Organization | [facility] | | | and Ksehawnana | + + + | Address | Unknown | + + + | Phone | Unavailable | + + + Support + + + + + | Name | Relationship | Address | Phone | + + + + + | Zoran Whitley | ECON | [address] | | | | | [id number], [place] | | | | | [address] | | + + + + + | Roseann Walker | ECON | [place] | | | | | [address] | | + + + + + Care Team Providers + +------+ + | Care Burial Vault Deliverer And Installer Name | Role | Phone | + +------+ + PCP | Unavailable | + +------+ + Encounter Details +--------+---------+ + + + | Date | Type | Department | Care Team | Description | +--------+---------+ + + + | 10/25/ | Office | [facility] | Caro Flores | S/P orthopedic | | 2016 | Visit | ORTHOPEDIC SURGERY | MD [address] [facility] | surgery, follow-up | | | | [address] [facility] | [place] | exam (Primary Dx) | | | | [place], [place] | [address] | | | | | [address] | | | | | | [phone] | | | +--------+---------+ + + + [...] - 10/26/2015 6:08 PM PDTSee soap note [id number].Electronically sign ed by Caro Flores MD at 10/26/2015 6:08 PM PDTCaro Flores MD - 6 6:07 PM PDT [facility] ORTHOPEDIC SURGERY [address] [place] [address] OFFICE NOTE CARO FLORES MD Patient: ALINE WHITLEY Admitting: MR #: [id number] LOC: PT TYPE: Adm Date: 10/26/2015 : [...] Transcribed on 10/27/2015 17:36:43 by eri job# [id number] Confirmation #: [id number] cc: LANA MELCHOR DO documented in this encounter Plan of Treatment Not on filedocumented as of this encounter Visit Diagnoses + + | Diagnosis | + + | S/P orthopedic surgery, follow-up exam - Primary Follow-up examination, following | | other surgery | + + documented in this encounter"
--- OUTSIDE RECORDS SUMMARY | 2019-09-02 23:36 | XMS ---
PreManage Notification: LESLYE MAGANA Security [employer] Supervisor Events No recent Security Events currently on file CRITERIA MET - 6 ED Visits in 6 Months - [facility] - [facility] CARE PROVIDERS TRUONG RUBI Internal Medicine: Pulmonary Disease Current PHONE: Unknown LANA MELCHOR [facility] 03/13/2018-Current PHONE: Unknown ANURADHA TAVARES Nurse Practitioner 11/06/2018-Current PHONE: [phone] Balbir [facility] 03/22/2019-Current PHONE: [phone] Bianca has no Care Guidelines for this patient. 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 - MANUEL MEETS WITH PATIENT ONCE A WEEK. - PATIENT CHOOSES AT TIMES TO BE NON COMPLIANT WITH MEDICATIONS. - MANUEL PLANT GENERAL MANAGER- IS FOLLOWING UP WITH PATIENT CLOSELY. 05/17/2018 [facility] - CHW CONTACTED WENDY AT [facility] RN CM- THEY HAVE BEEN DISCUSSING PATIENT CARE WITH PCP. - PATIENT DOES HAVE A LABOR RELATIONS SPECIALIST WHO IS BEING SEEN OUTSIDE OF THE [facility] NETWORK. - PATIENT PCP IS AWARE OF PATIENT CURRENT MEDICAL CONDITIONS. E.D. VISIT COUNT (12 MO.) 1 [facility] 2 [facility] 3 [facility] 8 [facility]. TOTAL 14 NOTE: Visits indicate total known visits. ED/C VISIT TRACKING (12 MO.) 09/02/2019 23:34 [facility] TYPE: Emergency COMPLAINT: - ABDOMINAL PAIN 06/12/2019 11:48 [facility] [place] TYPE: Emergency COMPLAINT: - HEADACHE 05/18/2019 08:32 [facility] [place] TYPE: Emergency COMPLAINT: - DISORIENTED 03/27/2019 13:28 [facility] TYPE: Emergency DIAGNOSES: - Chronic hepatic failure without coma - Other pancytopenia - Weakness - Localized edema - Dizziness 03[facility]21/2019 20[facility]00 [facility] COMPLAINT: - ANASARCA 03/15/2019 17:50 [facility] Nat [place] TYPE: Emergency DIAGNOSES: - Leg Swelling - Lymphedema, not elsewhere classified - Leg Pain - Right Leg Pain 01/31/2019 19:52 [facility] TYPE: Emergency DIAGNOSES: - Autoimmune hepatitis - Abdominal Pain - Other ascites - Generalized abdominal pain 01/25/2019 10:28 [facility] TYPE: Emergency DIAGNOSES: 30354. ABDOMINAL PAIN 82262. Other cirrhosis of liver 46415. Unspecified abdominal pain 21128. Constipation, unspecified [facility]2019 [facility] DIAGNOSES: - Abdominal Pain - Other ascites - Abd pain - Unspecified abdominal pain 01/04/2019 07:[address] [facility] [address] [facility] TYPE: Emergency COMPLAINT: - SHAKY 12/30/2018 13:13 [facility] TYPE: Emergency COMPLAINT: - FOOT PAIN, INJ DIAGNOSES: - Pain in left foot - Striking against or struck by other objects, initial encounte - Other manager terminal (current) drug therapy - Contusion of left foot, initial encounter 11/05/2018 20:20 [facility] TYPE: Emergency COMPLAINT: - ABDOMINAL PAIN DIAGNOSES: - Unspecified abdominal pain - Unspecified cirrhosis of liver - Other manager terminal (current) drug therapy 11/01/2018 14[facility]07 [facility] DIAGNOSES: - Abdominal Pain - Other ascites - abd pain 10/13/2018 20:27 [facility] [place] TYPE: Emergency COMPLAINT: - ABDOMINAL PAIN DIAGNOSES: - Other manager terminal (current) drug therapy - Other ascites - Unspecified cirrhosis of liver - Unspecified abdominal pain INPATIENT VISIT TRACKING (12 MO.) 06/12/2019 11:49 [facility] [place] TYPE: Observation COMPLAINT: - HEPATIC ENCEPHALOPATHY DIAGNOSES: - Other mcc (current) drug therapy - Autoimmune hepatitis - Unspecified cirrhosis of liver - Hypothyroidism, unspecified - Hepatic failure, unspecified without coma - Gastro-esophageal reflux disease without esophagitis 05/18/2019 15:03 [facility] TYPE: Medical Surgical COMPLAINT: - HEPATIC ENCEPHALOPATHY DIAGNOSES: - Autoimmune hepatitis - Patient's noncompliance with other medical treatment and coco - Other mcc (current) drug therapy - intermodal dispatcher (current) use of antibiotics - Thrombocytopenia, unspecified - Autoimmune hepatitis - Anemia, unspecified - Hepatic failure, unspecified without coma - Gastro-esophageal reflux disease without esophagitis - half-way (current) use of antibiotics - Patient's noncompliance with other medical treatment and coco - Hypothyroidism, unspecified - Thrombocytopenia, unspecified - Gastro-esophageal reflux disease without esophagitis - Anemia, unspecified - half-way (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 analgesic - Hypothyroidism, unspecified - intermodal dispatcher (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 analgesic - Other manager terminal (current) drug therapy 03/21/2019 22:47 [facility] [place] TYPE: Medical Surgical COMPLAINT: - ANASARCA DIAGNOSES: - Generalized edema - Gastro-esophageal reflux disease without esophagitis - Cellulitis of right lower limb - Autoimmune hepatitis - Other manager terminal (current) drug therapy - Hepatic failure, unspecified without coma - intermodal dispatcher (current) use of antibiotics - Fluid overload, unspecified - Other pancytopenia - Hypothyroidism, unspecified - Unspecified cirrhosis of liver 02/13/2019 08:21 [facility] TYPE: Interventional DIAGNOSES: 52210. Autoimmune hepatitis 88160. Other cirrhosis of liver 93641. Presence of other vascular implants and grafts 38147. Other ascites 01/04/2019 07:26 [facility] TYPE: Observation COMPLAINT: - HEPATIC ENCEPHALOPATHY DIAGNOSES: - Hypo-osmolality and hyponatremia - Unspecified cirrhosis of liver - half-way (current) use of antibiotics - Dizziness and giddiness - Other manager terminal (current) drug therapy - Hypothyroidism, unspecified - Gastro-esophageal reflux disease without esophagitis - Autoimmune hepatitis - Hepatic failure, unspecified without coma - Patient's other noncompliance with medication regimen - Other pancytopenia [email or web address]
== END 2019-09-03 02:09 | disposition home or self-care (01) ==
LOC: ED 23:34
DX: R18.8 Other ascites (principal); K72.90 Hepatic failure, unspecified without coma; Z79.899 Other long term (current) drug therapy
CPT/HCPCS: 80053; 81001; 83690; 85025; 85610; 85730; 99284

== ENCOUNTER 2019-10-11 11:48 | Observation (INO) | payer MEDICARE, OTHER ==
[~2019-10-11] VITALS: Ht 165.1 cm; Wt 88.0 kg
--- OUTSIDE RECORDS SUMMARY | 2019-10-11 11:50 | XMS ---
PreManage Notification: LESLYE MAGANA Security Metal Checker Events No recent Security Events currently on file CRITERIA MET - 6 ED Visits in 6 Months - [facility] - Has Care Guidelines - [facility] - 3 Facilities in 90 Days - [facility] - 2 Visits in 30 Days CARE PROVIDERS TRUONG RUBI Internal Medicine: Pulmonary Disease Current PHONE: Unknown LANA MELCHOR [facility] 03/13/2018-Current PHONE: Unknown ANURADHA TAVARES Nurse Practitioner 11/06/2018-Current PHONE: [phone] Balbir [facility] 03/22/2019-Current PHONE: [phone] Bianca has no Care Guidelines for this patient. 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 - MANUEL MEETS WITH PATIENT ONCE A WEEK. - PATIENT CHOOSES AT TIMES TO BE NON COMPLIANT WITH MEDICATIONS. - MANUEL MOBLEYRECONSIGNMENT CLERK- IS FOLLOWING UP WITH PATIENT CLOSELY. 05/17/2018 [facility] - CHW CONTACTED WENDY VEGAS [facility] LEANDRA CM- THEY HAVE BEEN DISCUSSING PATIENT CARE WITH PCP. - PATIENT DOES HAVE A BEAMER HAND WHO IS BEING SEEN OUTSIDE OF THE [facility] NETWORK. - PATIENT PCP IS AWARE OF PATIENT CURRENT MEDICAL CONDITIONS. E.D. VISIT COUNT (12 MO.) 2 [facility] [place] 3 [facility] 3 [facility] 9 [facility]. TOTAL 17 NOTE: Visits indicate total known visits. ED/UCC VISIT TRACKING (12 MO.) 10/11/2019 11:48 ADEL[facility] Bailey TYPE: Emergency COMPLAINT: - FALL 09/24/2019 18:33 [facility] TYPE: Emergency DIAGNOSES: - Hypo-osmolality and hyponatremia - Unspecified cirrhosis of liver - Thrombocytopenia, unspecified - Abdominal Pain - Unspecified abdominal pain 09/03/2019 18:40 [facility] TYPE: Emergency DIAGNOSES: 39291. abd pain 25193. Unspecified abdominal pain 64234. Other cirrhosis of liver 71119. Other diseases of stomach and duodenum 09/02/2019 23:34 [facility] [place] TYPE: Emergency COMPLAINT: - ABDOMINAL PAIN DIAGNOSES: - Unspecified abdominal pain - Other watermelon inspector (current) drug therapy - Other ascites - Hepatic failure, unspecified without coma 06/12/2019 11:48 ADEL[facility] Bailey TYPE: Emergency COMPLAINT: - HEADACHE 05/18/2019 08:32 [facility] [place] TYPE: Emergency COMPLAINT: - DISORIENTED [facility]27[facility]2019 13:28 [facility] DIAGNOSES: - Chronic hepatic failure without coma - Other pancytopenia - Weakness - Localized edema - Dizziness 03/21/2019 20:00 [facility]: Emergency COMPLAINT: - ANASARCA [facility]15/2019 17:[facility] DIAGNOSES: - Leg Swelling - Lymphedema, not elsewhere classified - Leg Pain - Right Leg Pain 01/31/2019 19:52 [facility] Onur MONTANO TYPE: Emergency DIAGNOSES: - Autoimmune hepatitis - Abdominal Pain - Other ascites - Generalized abdominal pain 01/25/2019 10:28 [facility] TYPE: Emergency DIAGNOSES: 80820. ABDOMINAL PAIN 18238. Other cirrhosis of liver 05143. Unspecified abdominal pain 39718. Constipation, unspecified 01/13/2019 18:22 [facility] Maddison Johns DUSTY TYPE: Emergency DIAGNOSES: - Abdominal Pain - Other ascites - Abd pain - Unspecified abdominal pain 01/04/2019 07:25 ADEL[facility] Bailey TYPE: Emergency COMPLAINT: - SHAKY 12/30/2018 13:13 ADELITA Bailey TYPE: Emergency COMPLAINT: - FOOT PAIN, INJ DIAGNOSES: - Pain in left foot - Striking against or struck by other objects, initial encounte - Other assisted (current) drug therapy - Contusion of left foot, initial encounter 11/05/2018 20:20 [facility] [place] TYPE: Emergency COMPLAINT: - ABDOMINAL PAIN DIAGNOSES: - Unspecified abdominal pain - Unspecified cirrhosis of liver - Other watermelon inspector (current) drug therapy 11/01/2018 14:07 [facility] Maddison MONTANO TYPE: Emergency DIAGNOSES: - Abdominal Pain - Other ascites - abd pain 10/13/2018 20:27 ADELITA Bailey TYPE: Emergency COMPLAINT: - ABDOMINAL PAIN DIAGNOSES: - Other watermelon inspector (current) drug therapy - Other ascites - Unspecified cirrhosis of liver - Unspecified abdominal pain INPATIENT VISIT TRACKING (12 MO.) 06/12/2019 11:49 ADELITA Bailey TYPE: Observation COMPLAINT: - HEPATIC ENCEPHALOPATHY DIAGNOSES: - Other assisted (current) drug therapy - Autoimmune hepatitis - Unspecified cirrhosis of liver - Hypothyroidism, unspecified - Hepatic failure, unspecified without coma - Gastro-esophageal reflux disease without esophagitis 05/18/2019 15:03 [facility] [place] TYPE: Medical Surgical COMPLAINT: - HEPATIC ENCEPHALOPATHY DIAGNOSES: - Autoimmune hepatitis - Patient's noncompliance with other medical treatment and coco - Other assisted (current) drug therapy - watermelon inspector (current) use of antibiotics - Thrombocytopenia, unspecified - Autoimmune hepatitis - Anemia, unspecified - Hepatic failure, unspecified without coma - Gastro-esophageal reflux disease without esophagitis - watermelon inspector (current) use of antibiotics - Patient's noncompliance with other medical treatment and coco - Hypothyroidism, unspecified - Thrombocytopenia, unspecified - Gastro-esophageal reflux disease without esophagitis - Anemia, unspecified - watermelon inspector (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 analgesic - Hypothyroidism, unspecified - retirement (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 analgesic - Other assisted (current) drug therapy 03/21/2019 22:47 [facility] [place] TYPE: Medical Surgical COMPLAINT: - ANASARCA DIAGNOSES: - Generalized edema - Gastro-esophageal reflux disease without esophagitis - Cellulitis of right lower limb - Autoimmune hepatitis - Other assisted (current) drug therapy - Hepatic failure, unspecified without coma - retirement (current) use of antibiotics - Fluid overload, unspecified - Other pancytopenia - Hypothyroidism, unspecified - Unspecified cirrhosis of liver 02/13/2019 08:21 [facility] TYPE: Interventional DIAGNOSES: 54959. Autoimmune hepatitis 44888. Other cirrhosis of liver 02788. Presence of other vascular implants and grafts 52474. Other ascites 01/04/2019 07:26 [facility] [place] TYPE: Observation COMPLAINT: - HEPATIC ENCEPHALOPATHY DIAGNOSES: - Hypo-osmolality and hyponatremia - Unspecified cirrhosis of liver - retirement (current) use of antibiotics - Dizziness and giddiness - Other watermelon inspector (current) drug therapy - Hypothyroidism, unspecified - Gastro-esophageal reflux disease without esophagitis - Autoimmune hepatitis - Hepatic failure, unspecified without coma - Patient's other noncompliance with medication regimen - Other pancytopenia [email or web address]
--- NOTE | 2019-10-11 15:30 | NUR ---
64YR OLD WOMAN ADMITTED FROM ER VIA STRETCHER ACCOMPANIED BY TO ROOM 120, TWO PERSON ASSIST TO MOVE OVER ONTO BED, INCONT OF URINE, ORIENTED TO SELF, FORGETFUL,SLEEPY, DENIES PAIN, LARGE HEMATOMA ON R EYE, SMALL SKIN TEAR L ELBOW, SL SECURE TO R AC. ORDERS NOTED, ORIENTED TO ROOM AND CALL LIGHT, ASKED FOR ICE WATER.
--- NOTE | 2019-10-11 17:31 | NUR ---
PATIENT SWAKE IN BED, TEEN GRANDSON AT BEDSIDE. PATIENT IS CONFUSED AT TIMES, FORGETTING WHAT HER BEDSIDE TABLE OR WATER CUP IS CALLED.(NOT SURE IF THIS IS HER BASELINE) COOL WASHCLOTH GOVEN FOR HER FOREHEAD CALL LIGHT IN REACH. SAT PATIENT UP IN BED FOR DINNER. NO OTHER NEEDS
--- NOTE | 2019-10-11 18:43 | NUR ---
ATE 100% OF DINNER, GRANDSON IS GOING HOME FOR THE EVENING, 2 PERSON ASSIST TO BSC TO VOID, VERY WEAK AND SHAKEY, REQUIRES CONSTANT CUES FOR SAFETY, HEMATOMA OVER R EYE UNCHANGED, DENIES HEADACHE, CONT. LR BOLUS OF FLUIDS ORDERED FROM ER, BED ALARM IS ACTIVE FOR PT SAFETY.
--- NOTE | 2019-10-11 19:25 | NUR ---
SHIFT REPORT RECEIVED FROM KURT GUO AT BEDSIDE. PT RESTING IN BED, AWAKENS TO VOICE. IV FLUIDS INFUSING, SITE WNL. BED ALARM ON FOR SAFETY. CALL LIGHT IN REACH.
--- NOTE | 2019-10-11 20:18 | NUR ---
ASSESSMENT COMPLETE, SCHEDULED MEDS GIVEN (SEE EMAR). PT A/O TO SELF, PLACE, AND EVENTS. FORGETFUL TO DATE, BED ALARM ON. IV FLUIDS INFUSING, SITE WNL. HEMATOMA NOTED TO RIGHT EYE, NO CHANGE SINCE START OF SHIFT. WILL MONITOR. PT ABLE TO OPEN EYE WHEN HOLDING UP EYELID. NO ADDITIONAL NEEDS VERBALIZED, CALL LIGHT IN REACH.
--- NOTE | 2019-10-11 20:24 | NUR ---
VITALS AND I&OS DONE AND CHARTED. BEDSIDE TABLE AND CALL LIGHT IN REACH.
--- NOTE | 2019-10-11 21:33 | NUR ---
PT'S BED ALARM WENT OFF. WITH THE HELP OF LEANDRA THORNTON WE GOT PT TO THE BSC. I WAITED IN THE ROOM WWHILE SHE HAD A BM FOR QUIT A LONG TIME. WITH THE HELP OF LEANDRA THORNTON WE GOT HER CLEANED UP AND BACK TO BED. SHE HAD AN EXTRA LARGE BM. BEDSIDE TABLE AND CALL LIGHT IN REACH. BED ALARM SET. PT NEEDS NOTHING MORE AT THIS TIME.
--- NOTE | 2019-10-11 22:35 | NUR ---
ADMINISTERED LACTULOSE FOR PRIMARY RN. PT DENIES FURTHER NEEDS AT THIS TIME. CALL LIGHT IS CLOSE AND BED ALARM IS ON.
--- NOTE | 2019-10-11 23:00 | NUR ---
PT RESTING IN BED, RR EVEN AND UNLABORED. NO DISTRESS NOTED, PT APPEARS COMFORTABLE. CALL LIGHT IN REACH, BED ALARM ON.
--- NOTE | 2019-10-12 00:09 | NUR ---
WITH THE HELP OF LEANDRA BACON WE GOT PT TO THE BSC,CLEANED UP FROM A LARGE LIQUID BM AND BACK TO BED. BEDSIDE TABLE AND CALL LIGHT IN REACH. BED ALARM SET.
--- NOTE | 2019-10-12 00:15 | NUR ---
PT RESTING QUIELTY IN BED, AWOKE SPONTANEOUSLY. NO DISTRESS NOTED, RR EVEN AND UNLABORED. IV FLUIDS INFUSING, CALL LIGHT IN REACH. BED ALARM ON.
--- NOTE | 2019-10-12 00:38 | NUR ---
SPOKE TO SAMI FROM TELEPHARMACY. SAMI TO RETIME LACTULOSE FREQUENCY TO QID STARTING AT 0600 PT HAS HAD THE 3 BM REQUIREMENT.
--- NOTE | 2019-10-12 02:22 | NUR ---
VITALS AND I&OS DONE AND CHARTED. WITH THE HELP OF LEANDRA RUTHERFORD WE HELPED PT OFF THE BSC AND BACK TO BED. BEDSIDE TABLE AND CALL LIGHT WITHIN REACH. PT NEEDS NOTHING MORE AT THIS TIME.
--- NOTE | 2019-10-12 02:30 | NUR ---
ASSESSMENT COMPLETE, NO NEW CHANGES OR CONCERNS. VSS, PUPILS REACTIVE TO LIGHT. PT A/O TO SELF, PLACE, DAY, AND EVENTS. BED ALARM REMAINS ON FOR SAFETY. PT RECENTLY UP TO BSC FOR BM AND VOID X1. PT BACK IN BED, NO FURTHER NEEDS, CALL LIGHT IN REACH.
--- NOTE | 2019-10-12 05:53 | NUR ---
SCHEDULED THYROID MED GIVEN (SEE EMAR). PT INCONTINENT OF STOOL, 2PA WITH HELP FROM MARIN JULY TO BSC. GIORGI CARE DONE AND PT BACK IN BED. IV FLUIDS INFUSING, SITE WNL. WARM RAG GIVEN TO WASH FACE PER PT REQUEST. NO FURTHER NEEDS, CALL LIGHT IN REACH AND BED ALARM ON.
--- NOTE | 2019-10-12 05:55 | NUR ---
WITH THE HELP OF LEANDRA RUTHERFORD WE GOT PT TO THE BSC, CLEANED UP FROM A LIQUID BM AND BACK TO BED. NEW ATTENDS AND NEW CINDY PUT ON. RED WIPED THE FLOOR AROUND HER BSC. CLEANED TOILET OFF. EMPTIED ALL GARBAGES. BEDSIDE TABLE AND CALL LIGHT IN REACH. BED ALARM SET. VITALS AND I&OS DONE AND CHARTED. PT NEEDS NOTHING MORE AT THIS TIME.
--- NOTE | 2019-10-12 05:56 | NUR ---
PT FORGETFUL TO SURROUNDINGS, BED ALARM ON FOR SAFETY. VSS, CONTROLLED WITH REPOSITIONING, NO PHARMACOLOGIC INTERVENTION REQUIRED. REGULAR DIET, TOLERATING WELL. NO NAUSEA REPORTED. PT HAD 5 INCONTINENT BM'S THIS SHIFT, SCHEDULED LACTULOSE TITRATED TO QID PER MD ORDERS. VOIDING QS. 2PA TO BSC. IV FLUIDS INFUSING, SITE WNL.
--- NOTE | 2019-10-12 07:30 | NUR ---
PATIENT SLEEPING. WHITE BOARD UPDATED. CALL LIGHT WITHIN REACH. NO OTHER NEEDS AT THIS TIME
--- NOTE | 2019-10-12 07:43 | NUR ---
Pt sleeping, eyes closed, respirations are even and unlabored. No notable distress. Personal supplies and call light within reach. Bed alarm intact.
--- NOTE | 2019-10-12 09:50 | NUR ---
PATIENT SITTING UP IN CHAIR. IN ROOM. VITAL SIGNS AND I&O DONE. LOW BLOOD PRESSURE. PATIENT DID NOT VOID DURING THIS PERIOD. RN NOTIFIED. CALL LIGHT WITHIN REACH. NO OTHER NEEDS A THIS TIME
--- NOTE | 2019-10-12 11:31 | NUR ---
PATIENT RESTING IN BED. IN ROOM. ORAL CARE DONE. WARM BLANKET PROVIDED. CALL LIGHT WITHIN REACH. NO OTHER NEEDS AT THIS TIME
--- NOTE | 2019-10-12 12:08 | NUR ---
Pt assisted to restroom SBA with walker; faye well.
--- NOTE | 2019-10-12 13:26 | NUR ---
PATIENT SITTING UP IN CHAIR. VITAL SIGNS AND I&O DONE. PATIENT GOES TO USE THE BATHROOM. PATIENT USES WALKER. ONE PERSON ASSISTING. PATIENT BACKS TO BED. CALL LIGHT WITHIN REACH. NO OTHER NEEDS AT THIS TIME
--- NOTE | 2019-10-12 17:25 | NUR ---
PATIENT SITTING UP IN CHAIR. IN ROOM. VITAL SIGNS AND I&O DONE. SETS UP TABLE FOR DINNER. CALL LIGHT WITHIN REACH. NO OTHER NEEDS AT THIS TIME
--- NOTE | 2019-10-12 17:42 | NUR ---
Pt a&ox3, on ra, tolerating regular diet. Lactulose QID. SBA to BR with walker. d5lr@75ml/hr. Mentation is improving. Recent fall at home; large bruise noted to left eye from fall. Bed and chair alarm in use.
--- NOTE | 2019-10-12 18:56 | NUR ---
Notified Dr. Wilkinson regarding pt's concern for left abdominal/flank pain. No medication orders at this time. Will discuss with pt that her food intake and bowel regiment is doing well at this time. Warm pack to be provided as needed for comfort per dr. Wilkinson's recommendation.
--- NOTE | 2019-10-12 19:20 | NUR ---
SHIFT REPORT RECEIVED FROM KURT MORRISON AT BEDSIDE. PT AWAKE AND RESTING IN BED, APPEARS COMFORTABLE. IV FLUIDS INFUSING, SITE WNL. BOARD UPDATED, CALL LIGHT IN REACH. BED ALARM IN PLACE.
--- NOTE | 2019-10-12 21:22 | NUR ---
ASSESSMENT COMPLETE, SCHEDULED MEDS GIVEN (SEE EMAR). PT A/O AT THIS TIME, BED ALARM ON TO ENSURE SAFETY. GRANDSON ALSO IN ROOM. VSS, PT DENIES PAIN AT REST BUT REPORTS 6/10 PAIN WHEN MOVING. HEAT PACK PROVIDED TO LEFT LATERAL FOR COMFORT. PT DENIES NAUSEA, BT ACTIVE. IV FLUIDS STOPPED PER MD ORDERS, SITE WNL. BRISK BLOOD RETURN NOTED. SALINE LOCKED. NO ADDITIONAL NEEDS, CALL LIGHT IN REACH.
--- NOTE | 2019-10-12 23:51 | NUR ---
HELPED PT TO THE BATHROOM AND BACK TO BED WITH HER FWW. CHANGED HER ATTENDS. BEDSIDE TABLE AND CALL LIGHT IN REACH. BED ALARM SET. PT NEEDS NOTHING MORE AT THIS TIME.
--- NOTE | 2019-10-13 01:53 | NUR ---
PT RESTING IN BED WITH EYES CLOSED. RR EVEN AND UNLABORED. NO DISTRESS NOTED, PT APPEARS COMFORTABLE AT THIS TIME. CALL LIGHT IN REACH.
--- NOTE | 2019-10-13 04:19 | NUR ---
EYES CLOSED, RR EVEN AND UNLABORED. NO DISTRESS NOTED, CALL LIGHT IN REACH. BED ALARM ON.
--- NOTE | 2019-10-13 05:08 | NUR ---
HELPED PT TO THE BATHROOM AND BACK TO BED WITH HER FWW. VITALS AND I&OS DONE AND CHARTED. BED ALARM SET. BEDSIDE TABLE AND CALL LIGHT IN REACH. I NOTICED THAT SHE WAS BLEEDING FROM HER IV SITE. I LET LEANDRA DIAZ KNOW. SHE WENT IN AND IS LOOKING AT IT.
--- NOTE | 2019-10-13 05:20 | NUR ---
INFORMED BYLEANDRA DIAZ IV SITE LEAKING AND BLEEDING. SITE HELD WITH PRESSURE BY LEANDRA DIAZ, HAD TO BE REDRESSED D/T BLEEDING. SITE NOW REINFORCED WITH 2X2 AND GAUZE. TIP CATHETER INTACT PER LEANDRA DIAZ. PLANNED D/C TODAY, WILL LEAVE IV OUT AT THIS TIME AND NOTIFY UPCOMING DAYSHIFT RN. SALES FORCE DEVELOPER MANDY ALSO MADE AWARE.
--- NOTE | 2019-10-13 05:25 | NUR ---
PT HAD AN UNEVENTFUL NIGHT, SLEPT OFF AND ON. A/O, BUT FORGETFUL AT TIMES. BED ALARM ON. VSS. REGULAR DIET, TOLERATING WELL, NO NAUSEA REPORTED. PAIN CONTROLLED WITH REPOSITIONING AND PRN HEAT PACK. 1PA WITH FWW TO VOID.
--- NOTE | 2019-10-13 05:59 | NUR ---
SCHEDULED THYROID MED GIVEN (SEE EMAR). SNACK ALSO PROVIDED PER PT REQUEST. NO FURTHER NEEDS, CALL LIGHT IN REACH. BED ALARM ON.
--- NOTE | 2019-10-13 06:05 | NUR ---
ASSESSMENT COMPLETE, NO NEW CHANGES OR CONCERNS. PT A/OX4, BED ALARM ON TO ENSURE SAFETY. NO IV SITE DESCRIBED IN PREVIOUS NOTED. SITE APPEARS TO HAVE STOPPED BLEEDING. WILL LEAVE 2X2 AND COBAN ON TO ENSURE COAGULATION. NO FURTHER NEEDS, CALL LIGHT IN REACH.
--- NOTE | 2019-10-13 07:22 | NUR ---
PT RESTING SOUNLDY AT TIME OF REPORT. APPEARS COMFORTABLE BREATHING EVEN AND UNLABORED LEFT UNDISTURBED. CALL LIGHT IN REACH
--- NOTE | 2019-10-13 09:27 | NUR ---
PT TOLERATES MORNING MEAL UP TO THE TOILET USING FWW FOR BM. DOING PERSONAL CARES AT THIS TIME
--- NOTE | 2019-10-13 09:45 | NUR ---
PATIENT SITTING UP IN CHAIR, AT SIDE. VITALS AND I&OS DONE AND CHARTED. TEETH BRUSHED, FACE AND HANDS WASHED. CALL LIGHT WITHIN REACH. NO OTHER NEEDS.
[2019-10-13] MEDS ORDERED: LACTULOSE10 GM/15 M PO (09:58)
== END 2019-10-13 10:30 | disposition home or self-care (01) ==
LOC: ED 11:48 → MS 11:49
PROVIDERS: ADMIT Internal Medicine
DX: K72.90 Hepatic failure, unspecified without coma (principal); K74.60 Unspecified cirrhosis of liver; K75.4 Autoimmune hepatitis; E03.9 Hypothyroidism, unspecified; K21.9 Gastro-esophageal reflux disease without esophagitis; Z79.899 Other long term (current) drug therapy; W06.XXXA Fall from bed, initial encounter
CPT/HCPCS: 36415; 51701; 70450; 80053; 81001; 82140; 82550; 85025; 85610; 97161; 99285-25; C9803; G0378; J2270; J2405; J7121; U0002